=== PATIENT | female | born 1975 | race Caucasian/White ===

== ENCOUNTER 2017-12-03 15:26 | Emergency (ER) | payer MEDICARE, SELFPAY ==
[2017-12-03 15:27] VITALS: BP 147/102; PULSE 97; RESP 18; TEMP 36.3; O2SAT 98; BMI 35.9
--- NOTE | 2017-12-03 16:10 | ED.RN ---
PT UNABLE TO HAVE FAMILY OR FRIEND DRIVE THEM HOME. UNABLE TO GIVE PAIN MEDICATION SHOTS. PT AWARE. REFUSED
--- NOTE | 2017-12-03 16:29 | ED.DCSUM_ITS ---
- ER Visit Summary Date of Service: 12/03/17 Chief Complaint: Back pain History of Present Illness: The patient is a 42 F with low back pain bilaterally. Symptoms started 3 days ago. The patient was pumping gas in her leg caught on the concrete and she twisted her back. She has a long-term history of back pain and sciatica. History of nerve ablation. Worse with moving. She tried Tylenol, Toradol, heat, lidocaine, and other home remedies. Her pain has persisted. She has associated tingling down her legs and crampy pain. This is exactly similar to her prior sciatica. Denies incontinence, bowel or bladder changes Physical Examination: Vital signs unremarkable. Afebrile. Patient is tearful and appears uncomfortable. Back is diffusely tender. No spinal tenderness. Straight leg raise is negative. Strength and sensation are intact distally. Pulses intact. Skin appears normal. Test Results: None indicated Emergency Department Course and Treatment: Patient has acute on chronic back pain. No indication for imaging. No new red flags or concerning symptoms. She was treated with morphine subcutaneously, Norflex, and Kenalog. Patient does have a history of diabetes. She said that steroids have helped her in the past. She has been able to manage her blood sugars while on steroids. She will check her sugars closely and address accordingly. Patient was advised that we will not prescribe narcotics. She can continue her anti-inflammatories at home. We will prescribe muscle relaxers. Follow-up with primary care. Treatment Plan: As above Disposition: Discharged Impression: 1. Acute on chronic low back pain This note was generated with [employer] dictation software. It may contain incorrect words, spelling, and punctuation that were not noted in review of the chart prior to signing ED Disposition - Plan for ED Patient: Chief Complaint: Back Referrals: Ashley Valencia MD [Primary Care Provider] -
--- NOTE | 2017-12-03 16:29 | ED.DEP ---
ED Disposition - Plan for ED Patient: Chief Complaint: Back Instructions: ED Low Back Pain Injury Prescriptions: Cyclobenzaprine [Flexeril] 10 mg PO TID #20 tab Referrals: Ashley Valencia MD [Primary Care Provider] -
[2017-12-03 16:33] VITALS: BP 129/69
== END 2017-12-03 16:34 | disposition home or self-care (01) ==
PROVIDERS: Emergency Provider Emergency Medicine; Family Provider Family Medicine; PCP Family Medicine
DX: M54.5 Low back pain (principal); G89.29 Other chronic pain; F31.9 Bipolar disorder, unspecified; Z72.0 Tobacco use; Z79.899 Other long term (current) drug therapy
CPT/HCPCS: 99282

== ENCOUNTER → 2018-01-15 14:56 | Outpatient (CLI) | payer MEDICARE, SELFPAY ==
[2018-01-15 18:30] LABS: Basophil# 0.06 X10^3/uL; Basophil% 0.5 % (0-1); Eosinophil# 0.43 X10^3/uL; Eosinophils% 3.6 % (0-5); Hematocrit 39.3 % (37-47); Hemoglobin 13.2 g/dl (12.0-15.0); Lymphocyte % 28.5 % (19-41); Mean Corp Hgb Conc 33.6 g/gl (32-36); Mean Corpuscular Hgb 32.2 pg (27.0-32.0); Mean Corpuscular Volume 95.9 fL (81-99); Mean Platelet Vol. 11.6 fl (6.2-12.0); Monocyte# 0.96 X10^3/uL; Monocyte% 8.1 % (0-10); Neutrophil # 7.04 X10^3/uL (2.7-7.7); Platelet Count 290 K/mm3 (150-450); RBC Distribution Width SD 44.4 fl (35.1-43.9); White Blood Count 11.9 K/mm3 (4.4-11.0)
[2018-01-15 18:32] LABS: POSITIVE COUNT NO; POSITIVE DIFFERENTIAL NO; POSITIVE MORPHOLOGY NO
[2018-01-15 18:43] LABS: AST(SGOT) 17 U/L (15-37); Alanine Aminotransfer ALT/SGPT 32 U/L (13-56); Albumin, Serum 3.7 g/dL (3.2-5.0); Alkaline Phosphatase 75 U/L (45-117); Anion Gap 9 (5-15); BUN 14 mg/dL (7-18); BUN/Creat Ratio 15.9 RATIO (10-20); CPK Total, Creatine Kinase 153 U/L (26-192); Calcium,Total 9.1 mg/dL (8.5-10.1); Chloride 105 mmol/L (98-107); Creatinine, Serum 0.88 mg/dL (0.55-1.02); EST Glomerular Filtration Rate 74 mL/min (>60); Est Glom Filt Rate - Afr Amer 89 mL/min (>60); Globulin 3.8 g/dL (2.2-4.2); Glucose 91 mg/dL (74-106); Protein, Total 7.5 g/dL (6.4-8.2); Sodium Level 140 mmol/L (136-145)
[2018-01-16 10:04] LABS: Vitamin B12 792 pg/mL (211-911)
[2018-01-19 14:07] LABS: Anti-Centromere B Ab <0.2 AI (0.0-0.9); Anti-Chromatin <0.2 AI (0.0-0.9); Anti-Jo <0.2 AI (0.0-0.9); Anti-Scleroderma-70 AB <0.2 AI (0.0-0.9); RNP Ab <0.2 AI (0.0-0.9); SJOGREN'S Anti-SS-A test < 0.2 AI (0.0-0.9); SJOGREN'S Anti-SS-B test < 0.2 AI (0.0-0.9); Smith Ab <0.2 AI (0.0-0.9)
[2018-01-19 14:52] LABS: Anti-dsDNA Ab 1 IU/mL (0-9)
== END ==
PROVIDERS: Family Provider Family Medicine; PCP Family Medicine; Visit Provider Family Medicine
DX: E11.9 Type 2 diabetes mellitus without complications (principal); M79.1 Myalgia
CPT/HCPCS: 36415; 80053; 82550; 82607; 85025; 86225; 86235

== ENCOUNTER → 2018-03-02 14:44 | Outpatient (CLI) | payer MEDICARE, SELFPAY ==
[2018-03-02 16:02] LABS: Absolute Lymphocyte Count 3.37 X10^3/ul (0.83-4.51); Basophil# 0.05 X10^3/uL; Basophil% 0.4 % (0-1); Eosinophil# 0.51 X10^3/uL; Eosinophils% 4.4 % (0-5); Hematocrit 38.8 % (37-47); Hemoglobin 13.4 g/dl (12.0-15.0); Lymphocyte # 3.37 X10^3/ul (4.0); Lymphocyte % 28.8 % (19-41); Mean Corp Hgb Conc 34.5 g/gl (32-36); Mean Corpuscular Hgb 32.5 pg (27.0-32.0); Mean Corpuscular Volume 94.2 fL (81-99); Mean Platelet Vol. 11.3 fl (6.2-12.0); Monocyte# 0.75 X10^3/uL; Monocyte% 6.4 % (0-10); Neutrophil # 6.97 X10^3/uL (2.7-7.7); Neutrophil % 59.7 % (47-70); Platelet Count 253 K/mm3 (150-450); RBC Distribution Width CV 12.4 % (11.6-14.6); RBC Distribution Width SD 41.9 fl (35.1-43.9); Red Blood Count 4.12 M/mm3 (4.2-5.4); White Blood Count 11.7 K/mm3 (4.4-11.0)
[2018-03-02 16:05] LABS: POSITIVE COUNT NO; POSITIVE DIFFERENTIAL NO; POSITIVE MORPHOLOGY NO
== END ==
PROVIDERS: Visit Provider Family Medicine
DX: D72.819 Decreased white blood cell count, unspecified (principal)
CPT/HCPCS: 36415; 85025

== ENCOUNTER → 2018-04-21 13:11 | Outpatient (CLI) | payer MEDICARE, SELFPAY | LOC: CT 13:13 | PROVIDERS: Family Provider Family Medicine; PCP Family Medicine; Visit Provider Family Medicine | DX: R91.1 Solitary pulmonary nodule (principal) | CPT/HCPCS: 71250 ==

== ENCOUNTER 2019-04-09 00:22 | Emergency (ER) | payer MEDICARE, SELFPAY ==
[2019-04-09 00:23] VITALS: BP 153/106; PULSE 90; RESP 15; TEMP 36.7; O2SAT 97; BMI 34.4
[2019-04-09 00:27] VITALS: BP 153/106; PULSE 92; RESP 14; O2SAT 99
--- NOTE | 2019-04-09 00:29 | RAD_ITS ---
HISTORY: Chest pain ADDITIONAL HISTORY: None provided. COMPARISON: CT 04/21/2018 TECHNIQUE: Frontal and lateral chest radiographs. Number of images including paperwork: 2 FINDINGS: LUNGS AND PLEURA: No consolidation, mass or pleural effusion. Peribronchial thickening. CARDIAC SILHOUETTE: Unremarkable. MEDIASTINUM AND ROSA M: Unremarkable. UPPER ABDOMEN: Unremarkable. SKELETON AND SOFT TISSUES: No acute findings. OTHER DEVICES AND HARDWARE: Right upper quadrant surgical clips. RAD/Chest PA and Lateral IMPRESSION: Peribronchial thickening as can be seen with bronchitis and airways disease. at 0124 Reported and signed by: Ana Laura Orozco MD Electronically Signed: Ana Laura Orozco MD at 1:24 EDT Tel , Service support ,
--- NOTE | 2019-04-09 00:29 | EKG12_ITS ---
Test Reason : CP Blood Pressure : / mmHG Vent. Rate : 093 BPM Atrial Rate : 093 BPM P-R Int : 164 ms QRS Dur : 080 ms QT Int : 352 ms P-R-T Axes : 057 062 072 degrees QTc Int : 437 ms Normal sinus rhythm Nonspecific ST abnormality Abnormal ECG Confirmed by BROOK THOMAS, KYLEE ([id number]), assignment editor CLEMENTE CALLEJAS ([id number]) on 04/12/2019 11:54:56 AM Referred By: PEÑA Confirmed By:KYLEE DOE MD
--- NOTE | 2019-04-09 00:29 | ED.DCSUM_ITS ---
History of Present Illness Chief Complaint: Chest Pain Informant: Patient Narrative: Stated she was resting Fishing 40 minutes 45 minutes ago and developed a substernal tightness. Associated with some nausea. No shortness of breath. Denies any other symptoms except for a mild headache. No home treatment. Current severity is moderate. Worse by nothing. Relieved by nothing. Last stress test was 10 years ago and normal. Denies any cardiac history of disease. She does have hypertension high cholesterol and smokes cigarettes. No family history of early MT. Denies any PE risk factors. - Past Medical History (1) Chest pain Status: Acute (2) Bipolar disorder Status: Chronic (3) Depression Status: Chronic (4) Hypertension Status: Chronic (5) Migraine headache Status: Chronic Past Medical History - Allergies and Home Meds Allergies/Adverse Reactions: Allergies No Known Allergies Allergy (Verified 04/09/19 00:27) Primary Care Physician: Ashley Valencia MD [Primary Care Provider] - Prior records reviewed: Yes Past Medical History: - - Reviewed Surgical History: cholecystectomy, herniorrhaphy, hysterectomy Smoking Status: Current every day smoker Alcohol: None Drugs: None Review of Systems General: Denies: Chills, Fever, Sweats Eyes: Denies: Visual changes - bilaterally, Diplopia ENT: Denies: Rhinorrhea, Sore throat Cardiovascular: Reports: Chest pain. Denies: Palpitations Respiratory: Denies: Dyspnea, Cough, Dyspnea on exertion Gastrointestinal: Reports: Nausea. Denies: Abdominal pain, Vomiting, Diarrhea, Melena, Hematochezia Genitourinary: Denies: Dysuria, Hematuria, Frequency Musculoskeletal: Denies: Back pain, Extremity Pain Skin: Denies: Rash, Wounds Neurological: Reports: Headache. Denies: Weakness, Numbness Physical Exam Vital Signs/Narrative: Vital Signs Temp Pulse Resp BP Pulse Ox 04/09/19 00:23 98.1 F 90 15 153/106 H 97 General: Well nourished, Well developed, No Acute Distress Head: Normocephalic, Atraumatic Eyes: Perrl, EOMI ENT: Moist mucous membranes, No rhinorrhea Neck: Supple, Nontender Cardiovascular: Regular rate, Regular rhythm, No murmurs Respiratory: No distress, CTA bilaterally, Chest nontender Abdomen: Soft, Nontender, Nondistended, Normal bowel sounds Back: Nontender, Normal Inspection Extremities: Nontender, No edema Skin: Normal color, No rash Neurological: Alert, Oriented x3, Cranial nerves II-XII grossly intact, Normal Strength, Normal Sensation Psychological: Normal affect, Normal Mood Diagnostic/Tx/Re-eval - Medical Decision Making She given aspirin and nitro. Lab work EKG and chest x-ray obtained EKG shows sinus rhythm at a rate of 93. No STEMI. No ischemic changes work shows a white count of 11.8. Glucose 252. Troponin negative. One nitroglycerin stopped her chest discomfort. Chest x-ray shows nothing acute. Patient given a Fioricet for her headache. I discussed admission with the patient for further cardiac enzymes and stress test tomorrow. She declined this. She understands the risk of going home. I also talked her about doing a delta troponin and EKG and she declined this as well. She understands she can return if her pain comes back. Her symptoms are resolved. She had chest pain at rest. This may be cardiac. Her heart score is 4. This puts her at moderate risk. I did state to her that I think she should stay. She understands and still wants to go home and follow- up ED Disposition - Plan for ED Patient: Diagnosis: Chest pain at rest, Headache Instructions: CHEST PAIN, Uncertain Cause Referrals: Ashley Valencia MD [Primary Care Provider] -
[2019-04-09 00:44] LABS: Absolute Lymphocyte Count 3.72 X10^3/uL (0.83-4.51); Absolute Neutrophil Count 6.6 X10^3/uL (2.0-7.7); Basophil% 0.8 % (0-1); Eosinophil# 0.74 X10^3/uL; Eosinophils% 6.3 % (0-5); Hematocrit 40.8 % (37-47); Hemoglobin 13.8 g/dL (12.0-15.0); Lymphocyte # 3.72 X10^3/ul (4.0); Lymphocyte % 31.4 % (19-41); Mean Corp Hgb Conc 33.8 g/dL (32-36); Mean Corpuscular Hgb 30.9 pg (27.0-32.0); Mean Corpuscular Volume 91.3 fL (81-99); Mean Platelet Vol. 11.1 fl (6.2-12.0); Monocyte# 0.63 X10^3/uL; Monocyte% 5.3 % (0-10); NRBC Flagged by Analyzer 0 % (0-5); Neutrophil # 6.59 X10^3/uL (2.7-7.7); Neutrophil % 55.8 % (47-70); Platelet Count 220 K/mm3 (150-450); RBC Distribution Width CV 11.7 % (11.6-14.6); Red Blood Count 4.47 M/mm3 (4.2-5.4); White Blood Count 11.8 K/mm3 (4.4-11.0)
[2019-04-09] MEDS: Aspirin 81 MG TAB.CHEW 324 MG PO (00:48)
[2019-04-09] MEDS: Ondansetron 4 MG/2 ML Vial IV (00:48)
[2019-04-09 00:50] VITALS: O2SAT 96
[2019-04-09] MEDS: Nitroglycerin SL (ED/IMG/CATH) 0.4 MG TABLET SUBLINGUAL (00:55)
[2019-04-09 01:01] LABS: BUN 6 mg/dL (7-18); Creatinine, Serum 0.93 mg/dL (0.55-1.02); Estimated Creatinine Clearance 79.83 ml/min; Glucose 252 mg/dL (74-106)
[2019-04-09 01:02] LABS: Anion Gap 10 (5-15); BUN/Creat Ratio 6.5 RATIO (10-20); Calcium,Total 9.1 mg/dL (8.5-10.1); Chloride 102 mmol/L (98-107); EST Glomerular Filtration Rate 70 mL/min (>60); Est Glom Filt Rate - Afr Amer 84 mL/min (>60); Potassium 3.6 mmol/L (3.5-5.1); Sodium Level 135 mmol/L (136-145)
[2019-04-09 01:11] VITALS: BP 114/87; PULSE 93; RESP 14; O2SAT 94
[2019-04-09] MEDS: Acetaminophen/Butalbital/Caffe 1 Tablet 2 TABLET PO (01:32)
[2019-04-09 01:41] VITALS: BP 112/75; PULSE 82; RESP 13; O2SAT 97
== END 2019-04-09 01:46 | disposition home or self-care (01) ==
PROVIDERS: Emergency Provider Emergency Medicine; Family Provider Family Medicine; PCP Family Medicine
DX: R07.9 Chest pain, unspecified (principal); R51 Headache; E78.00 Pure hypercholesterolemia, unspecified; I10 Essential (primary) hypertension; F17.210 Nicotine dependence, cigarettes, uncomplicated; F32.9 Major depressive disorder, single episode, unspecified; Z79.899 Other long term (current) drug therapy
CPT/HCPCS: 71046; 80048; 84484; 85025; 93005; 96374; 99285; A4216; J2405

== ENCOUNTER 2019-05-21 08:32 | Emergency (ER) | payer MEDICARE, MEDICAID, SELFPAY ==
[2019-05-21 08:33] VITALS: BP 172/97; PULSE 82; RESP 18; TEMP 36.7; O2SAT 98; BMI 33.8
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
[2019-05-21] MEDS: Ondansetron 4 MG/2 ML Vial IV (08:52)
[2019-05-21] MEDS: Morphine 4 MG/ML Syringe IV (08:53)
[2019-05-21 09:18] LABS: Absolute Lymphocyte Count 1.55 X10^3/uL (0.83-4.51); Absolute Neutrophil Count 6.2 X10^3/uL (2.0-7.7); Basophil# 0.05 X10^3/uL; Basophil% 0.6 % (0-1); Eosinophils% 3.5 % (0-5); Hematocrit 40.7 % (37-47); Hemoglobin 13.7 g/dL (12.0-15.0); Lymphocyte # 1.55 X10^3/ul (4.0); Lymphocyte % 17.9 % (19-41); Mean Corp Hgb Conc 33.7 g/dL (32-36); Mean Corpuscular Hgb 30.5 pg (27.0-32.0); Mean Corpuscular Volume 90.6 fL (81-99); Mean Platelet Vol. 11.1 fl (6.2-12.0); Monocyte# 0.53 X10^3/uL; Monocyte% 6.1 % (0-10); NRBC Flagged by Analyzer 0 % (0-5); Neutrophil # 6.18 X10^3/uL (2.7-7.7); Neutrophil % 71.2 % (47-70); Platelet Count 227 K/mm3 (150-450); RBC Distribution Width CV 12.5 % (11.6-14.6); RBC Distribution Width SD 40.9 fl (35.1-43.9); Red Blood Count 4.49 M/mm3 (4.2-5.4); White Blood Count 8.7 K/mm3 (4.4-11.0)
[2019-05-21 09:35] LABS: Anion Gap 6 (5-15); BUN 7 mg/dL (7-18); BUN/Creat Ratio 9.2 RATIO (10-20); Calcium,Total 8.8 mg/dL (8.5-10.1); Chloride 104 mmol/L (98-107); Creatinine, Serum 0.76 mg/dL (0.55-1.02); EST Glomerular Filtration Rate 87 mL/min (>60); Est Glom Filt Rate - Afr Amer 105 mL/min (>60); Estimated Creatinine Clearance 97.69 ml/min; Glucose 287 mg/dL (74-106); Potassium 3.6 mmol/L (3.5-5.1); Sodium Level 136 mmol/L (136-145)
[2019-05-21 09:47] VITALS: BP 165/74; PULSE 78; RESP 16; O2SAT 99
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
[2019-05-21 10:34] VITALS: PULSE 71; RESP 16; O2SAT 98
== END 2019-05-21 10:35 | disposition home or self-care (01) ==
PROVIDERS: Emergency Provider Emergency Medicine; Family Provider Family Medicine; PCP Family Medicine
DX: S00.03XA Contusion of scalp, initial encounter (principal); R07.89 Other chest pain; Z23 Encounter for immunization; E11.9 Type 2 diabetes mellitus without complications; I10 Essential (primary) hypertension; Z79.4 Long term (current) use of insulin; Z79.899 Other long term (current) drug therapy; V58.5XXA Driver of pick-up truck or van injured in noncollision transport accident in traffic accident, initial encounter; Y93.I9 Activity, other involving external motion; Y92.410 Unspecified street and highway as the place of occurrence of the external cause; Y99.8 Other external cause status
CPT/HCPCS: 70450; 71260; 72125; 80048; 84484; 85025; 93005; 96361; 96374; 96375; 99285; J7030; Q9967; A4216; J2405

== ENCOUNTER → 2019-11-08 | Outpatient (CLI) | payer MEDICARE, MEDICAID, SELFPAY ==
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
== END | disposition home or self-care (01) ==
PROVIDERS: PCP Family Medicine; Referring Provider Family Medicine; Visit Provider Family Medicine
DX: M54.31 Sciatica, right side (principal)
CPT/HCPCS: 72158; A9575

== ENCOUNTER 2025-08-18 21:55 | Observation (INO) | payer OTHER, MEDICARE, SELFPAY ==
[2025-08-18] VITALS (10 sets, daily range): BP systolic 119–166; BP diastolic 75–100; PULSE 82–95; RESP 16–30; TEMP 36.6; O2SAT 94–100; BMI 33.1
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
--- NOTE | 2025-08-18 22:20 | ED.VIS.CHEST ---
HPI History of Present Illness Chief Complaint: Chest Pain Detail of Chief Complaint: Chest pain Informant: patient Narrative Narrative: Patient presents to the emergency department with complaint of chest pain that started about an hour ago. Patient states that she was pumping gas when she had sudden onset of retrosternal chest discomfort that she described as a squeezing and a tightness. Pain radiated into her right arm and her right arm is aching. Pain goes through to her back and into her the right side of her neck. She has never had discomfort like this before. She says many years ago she thought she was having a heart attack and was admitted but was diagnosed with anxiety. She has no known heart history. Her father had 7 cardiac stents and had an LA in his early 50s. She denies recent travel or surgery. She is diabetic and she is a smoker. [facility] Medical History (Updated 08/18/25 @ 23:[address] Te Rogers DO) Physical exam, pre-employment Home Medications ?Medication ?Instructions ?Recorded ?Last Taken ?Type aripiprazole 10 mg tablet 15 mg PO DAILY 04/09/19 Unknown History insulin aspart U-100 100 unit/mL 0 unit SQ TID 04/09/19 Unknown History (3 mL) subcutaneous pen insulin detemir U-100 100 unit/mL 25 units SQ QHS 04/09/19 Unknown History (3 mL) subcutaneous pen lorazepam 2 mg tablet 2 mg PO PRN PRN Anxiety 04/09/19 Unknown History metformin 1,000 mg tablet 1,000 mg PO DAILY 04/09/19 Unknown History sertraline 100 mg tablet 100 mg PO DAILY 04/09/19 Unknown History cyclobenzaprine 10 mg tablet 10 mg PO TID PRN Muscle Spasm #20 05/21/19 Unknown Rx tabs glipizide 10 mg tablet 10 mg PO DAILY 08/18/25 Unknown History Allergy/AdvReac Type Severity Reaction Status Date / Time No Known Allergies Allergy Verified 08/18/25 21:56 Social History Smoking Status: Current every day smoker tobacco type: cigarettes ROS ROS ED Review of Systems ROS Unobtainable: other Constitutional Constitutional ED: Reports lethargy; Denies chills, fever(s), sweats or weight loss Eyes Eyes: Denies blurry vision, change in vision or diplopia ENT ENT ED: Denies rhinorrhea or sore throat Cardiovascular Cardiovascular: Reports chest pain; Denies orthopnea or racing heartbeat Respiratory/Chest Respiratory/Chest: Denies cough, dyspnea, dyspnea on exertion, orthopnea or sputum Gastrointestinal Gastrointestinal: Denies abdominal pain, diarrhea, nausea or vomiting Genitourinary Genitourinary ED: Denies dysuria, hematuria or urinary frequency Musculoskeletal Musculoskeletal: Denies arthralgias, back pain, myalgias or neck pain Integumentary Denies abscess, Abrasions or rash Neurologic Neurologic: Denies headache(s) or weakness Psychiatric Psychiatric: Denies anxiety, depression or suicidal thoughts Endocrine Endocrinology: Denies polydipsia, polyphagia or polyuria Hematologic/Lymphatic Hematologic/Lymphatic: Denies easy bleeding, easy bruising or lymphadenopathy Allergic/Immunologic Allergic/Immunologic ED: Denies mouth swelling, tongue swelling or urticaria EXAM Physical Exam Const Vital Signs: 08/18/25 21:55 08/18/25 22:16 08/18/25 22:28 Temperature 97.8 F Temperature Source Temporal Pulse Rate 95 Respiratory Rate 16 Respiratory Effort Normal Short of Breath Blood Pressure 166/100 H Blood Pressure Mean 122 Pulse Ox 100 94 Oxygen Delivery Method Room Air Room Air 08/18/25 22:30 08/18/25 22:32 08/18/25 22:32 Temperature Temperature Source Pulse Rate 86 85 87 Respiratory Rate 21 H 30 H Respiratory Effort Blood Pressure 136/89 H 136/89 H Blood Pressure Mean 102 Pulse Ox 99 99 Oxygen Delivery Method 08/18/25 22:45 08/18/25 23:00 08/18/25 23:17 Temperature Temperature Source Pulse Rate 84 84 82 Respiratory Rate 22 H 21 H Respiratory Effort Blood Pressure 141/79 H 147/84 H 147/84 H Blood Pressure Mean 96 101 Pulse Ox 96 97 Oxygen Delivery Method 08/18/25 23:18 08/18/25 23:30 Temperature Temperature Source Pulse Rate 83 Respiratory Rate 16 Respiratory Effort Blood Pressure 119/75 Blood Pressure Mean 88 Pulse Ox 97 97 Oxygen Delivery Method Positive well nourished and well developed General Appearance ED: well developed and NAD HEENT Reports TM's clear and moist mucous membranes normocephalic and atraumatic; Negative for trauma or tenderness Tympanic Membrane ED: Yes TM's clear Eyes PERRL and EOMs intact bilaterally General Eye ED: Negative for pale conjunctiva or scleral icterus Neck no lymphadenopathy, supple and no JVD General: Negative for tenderness Chest Wall inspection of chest normal and palpation of chest normal Chest: Negative for tenderness Resp normal respiratory effort and clear to auscultation bilaterally Effort and Inspection: Negative for respiratory distress or pain with movement Auscultation: Negative for rhonchi, wheezes or diminished lung sounds Cardio regular rate, regular rhythm, S1 normal heart sound, S2 normal heart sound and no murmurs Peripheral Pulses: pulses 2+ throughout GI normal to inspection, nondistended, normoactive bowel sounds, soft to palpation, non-tender, non-distended and no masses Back/Spine no CVA tenderness and no thoracic nor lumbar tenderness Extremity normal to inspection General Extremety ED: Negative for edema General Extremity: Negative for edema Neuro oriented x3, CN's II-XII intact bilaterally, no sensory deficits noted and gait normal Sensorium / Orientation: awake, alert, oriented to person, oriented to place and oriented to time Motor Exam: strength 5/5 throughout and strength abnormal Psych mental status grossly normal Skin no rashes or lesions noted and no wounds Heart Score History: Moderately Suspicious ECG: Normal Age: >45 - <65 years Risk Factors: 1 or 2 Risk Factors Troponin: </= Normal Limit Score: 3 MDM MDM MDM Narrative Medical decision making narrative: Patient presents with retrosternal chest pain with discomfort into the right arm and neck and jaw as well as radiating through to her back. Symptoms started suddenly an hour prior to coming in. She has not had symptoms like this before. She does have history of diabetes and history of anxiety and positive family history of heart disease. EKG obtained arrival showed a sinus rhythm with rate of 88 bpm with no acute ST segment changes. CBC with differential shows a white count 11.3 with hemoglobin 13 and platelet count of 226. Chemistries unremarkable. Troponin was normal at 6. D-dimer was 0.61. 1 view chest x-ray unremarkable. CTA of the chest was ordered given the elevated D-dimer. Patient was given aspirin and nitroglycerin and she seemed to have good pain relief with the nitroglycerin. She had an inch of Nitropaste placed to the anterior chest wall. Case discussed with hospitalist will evaluate patient for admission Lab Data Attestation: I reviewed the patient's lab results. Labs: Laboratory Results - last 24 hr 08/18/25 22:14 WBC 11.3 H RBC 4.38 Hgb 13.4 Hct 38.6 MCV 88.1 MCH 30.6 MCHC 34.7 RDW Std Deviation 38.3 RDW Coeff of Martin 11.8 Plt Count 226 MPV 10.9 Immature Gran % (Auto) 0.300 Neut % (Auto) 53.0 Lymph % (Auto) 35.2 [place] % (Auto) 6.2 Eos % (Auto) 4.6 Baso % (Auto) 0.7 Absolute Neuts (auto) 6.0 Absolute Lymphs (auto) 3.98 Nucleated RBC % 0 D-Dimer Quant (PE/DVT) 0.61 H* Sodium 132 L Potassium 4.1 Chloride 96 L Carbon Dioxide 21.3 Anion Gap 15 BUN 10 Creatinine 0.80 Estim Creat Clear Calc 105.68 Est GFR (MDRD) Non-Af 90 BUN/Creatinine Ratio 12.4 Glucose 318 H Calcium 9.5 Troponin T High Sens 6 Radiography Diagnostic Testing: Clinical Impression(s) from Imaging Studies Chest X-Ray 08/18/25 22:35 IMPRESSION: No acute cardiopulmonary disease. Reading Location: [facility] 1 view chest x-ray obtained interpreted by myself as no evidence of infiltrate or pneumothorax or acute disease process. Radiology in agreement EKG Initial EKG: Attestation: I personally reviewed and interpreted this EKG as follows: Comments: Sinus rhythm with ventricular rate of 88 bpm with no acute ST segment Discharge Plan Dx/Rx/DC Orders Clinical Impression: Chest pain Disposition Disposition: Acute Care Hospital [facility]
[2025-08-18] MEDS: Nitroglycerin SL (ED/IMG/CATH) 0.4 MG TABLET SL (22:32)
--- OUTSIDE RECORDS SUMMARY | 2025-08-18 22:33 | XMS RPT_ITS | CCD ---
Author Organization [facility] Care Team Providers Care Cutter Hand Name Role Phone GUERO SHABAZZ Unavailable Unavailable [facility] Unavailable Unavailable TAMERA ARCE Unavailable Unavailabl [facility], GENERIC Unavailable Unavailable SUMIT LERNER Unavailable Unavailable PRUDENCIO THOMAS, DR CLIF Sahu Primary Care Physician JOHN THOMAS, DR ABI Huber Attending Unavailsharon FLANNERY MD, DR CLIF Sahu Primary Care UnavailCAR Ramirez Attending Unavailable PRDUENCIO THOMAS, DR CLIF Sahu Primary Care UnavailTRANG Trejo (PA-C) Referring Unava ilable LIBBY SUAZO DO Primary Care Physician JAN OLEARY Attending Unavailable MISC, DOCTOR Primary Care Unavailable UNGERERCHEYENNE BUSINESS TECHNOLOGY PROFESSOR Consulting Unavailable CHEYENNE BALES BUSINESS TECHNOLOGY PROFESSOR Referring Unavailable WAYLON MADDOX MD Admitting Unavailable WAYLON MADDOX MD Primary Care Unavailable WAYLON MADDOX MD Attending Unavailable PROVIDER, UNKNOWN Consulting Unavailable JERICHO HERNANDEZ Attending Unavailable CHEYENNE BALES BUSINESS TECHNOLOGY PROFESSOR Consulting Unavailable JERICHO HERNANDEZ Admitting Unavailable JERICHO HERNANDEZ Primary Care Unavailable PROVIDER, UNKNOWN Consulting Unavailable UNGERER, CHEYENNE BUSINESS TECHNOLOGY PROFESSOR Consulting Unavailable UNGERER CHEYENNE BUSINESS TECHNOLOGY PROFESSOR Attending Unavailable UNGERER CHEYENNE BUSINESS TECHNOLOGY PROFESSOR Admitting Unavailable UNGERER CHEYENNE BUSINESS TECHNOLOGY PROFESSOR Primary Care Unavailable PROVIDER, UNKNOWN Consulting Unavailable KATHY GAMING Attending Unavailable LIBBY SUAZO DO Primary Care Unavailable DR CLIF FLANNERY MD Primary Care UnavailFAUSTINO Wise DO Attending Unavailable DR CLIF FLANNERY MD Primary Care UnavailTHERON Melton MD Attending Unavail able LIBBY SUAZO DO Primary Care Unavailable JERICHO SULTANA MD Attending Unavailable HARITHA SYLVESTER DO Attending Unavailable LIBBY SUAZO DO Primary Care Unavailable LIBBY SUAZO DO Primary Care Unavailable DR ABI LOPEZ MD Attending UnavailLIBBY Mccall DO Primary Care Unavailable LIBBY SUAZO DO Attending Unavailable LIBBY SUAZO DO Attending Unavailable LIBBY SUAZO DO Primary Care Unavailable Allergies Allergy Classification Reported Allergen(s) Allergy Type Date of Onset Reaction(s) Facility (2 sources) Grass pollen; Translations: [GRASS POLLEN] Propensity to adverse reactions to drug (disorder) [address] [facility] Repository (2 sources) Pollen; Translations: [POLLEN] Propensity to adverse reactions (disorder) [address] [facility] Repository (1 source) misc non-codified allergy 1 Allergy to substance Eruption of skin (disorder) [facility] Comment on above: vinyl gloves NEGATED: Highlighted row has been ruled out! (1 source) Drug allergy [facility] Medications Current Medications Medication Drug Class(es) Dates Sig (Normalized) Sig (Original) acetaminophen 325 mg / oxyCODONE hydrochloride 5 mg oral tablet (1 source) Opioid Agonist Start: 05-03-2025 End: 05-06-2025 take 1 tablet by mouth every six hours as needed for pain Percocet 5 mg-325 mg oral tablet Dose = 1 tab(s), Oral, q6h, PRN for pain, X 3 day(s), # 10 tab(s), 0 Refill(s), Abdominal wall strain, 102 Start Date: 05/03/25 Stop Date: 05/06/25 Status: Ordered Medication Dispense Status: Completed Quantity: 10.0 Unit: tab(s) Total Allowed Fills: 1 Fills Dispensed: 0 Indications: Strain of muscle, fascia and tendon of abdomen, initial encounter; amoxicillin 875 mg / clavulanate 125 mg oral tablet (2 sources) Penicillin-class Antibacterial Start: 07-16-2025 End: 07-26-2025 take 1 tablet by mouth every twelve hours amoxicillin-clav ulanate 875 mg-125 mg oral tablet 1 tab(s), Oral, q12h, X 10 day(s), # 20 tab(s), 0 Refill(s), 07/26/25 3:55:00 PM EST, 104.5 Start Date: 07/16/25 Stop Date: 07/26/25 Status: Ordered Medication Dispense Status: Completed Quantity: 20.0 Unit: tab(s) Total Allowed Fills: 1 Fills Dispensed: 0 Start: 01-16-2025 End: 01-26-2025 take 1 tablet by mouth every twelve hours amoxicillin-clavulanate 875 mg-125 mg or al tablet 1 tab(s), Oral, q12h, X 10 day(s), # 20 tab(s), 0 Refill(s), 01/26/25 1:21:00 AM EDT, 79.7 Start Date: 01/16/25 Stop Date: 01/26/25 Status: Ordered Quantity: 20.0 Unit: tab(s) Repeat number: 1 ARIPiprazole 15 mg oral tablet (9 sources) Atypical Antipsychotic Start: 02-11-2025 ARIPipr azole 15 mg oral tablet Dose : 15 mg = 1 tab(s), Oral, qHS, TAKE ONE TABLET BY MOUTH EVERY NIGHT AT BEDTIME, # 100 tab(s), 0 Refill(s), Pharmacy: [facility] 174.5, cm, 02/11/25 13:42:00 EDT, Height, kg, 02/11/25 13:42:00 EDT, Dosing Weight Start Date: 02/11/25 Status: Ordered Medication Dispense Status: Completed Quantity: 100.0 Unit: tab(s) Total Allowed Fills: 1 Fills Dispensed: 0 Start: 02-16-2014 Abilify Oral, qDay, 0 Refill(s) Start Date: 02/16/14 Status: Ordered Repeat number: 1 Start: 02-16-2014 Abilify Oral, qDay, 0 Refill(s) Start Date: 02/16/14 Status: Ordered 24 hr diclofenac sodium 100 mg extended release oral tablet (3 sources) Nonsteroidal Anti-inflammatory Drug Start: 04-12-2025 take 2 tablets by mouth in the morning, then take 1 tablet by mouth in the evening diclofenac sodium 100 mg oral tablet, extended release See Instructions, 2 tab(s) Oral in AM, 1 tab in PM, # 90 tab(s), 2 Refill(s), Pharmacy: [facility], Foot pain, right Navicular fracture, foot (right), 173, cm, 04/12/25 15:01:00 EDT, Height, kg, 04/12/25 15:01:00 EDT, Dosing Weight Start Date: 04/12/25 Status: Ordered Medication Dispense Status: Completed Quantity: 90.0 Unit: tab(s) Total Allowed Fills: 3 Fills Dispensed: 0 Indications: Pain in right foot; Displaced fracture of navicular [scaphoid] of unspecified foot, initial encounter for closed fracture; docusate sodium 100 mg oral capsule (1 source) Start: 05-01-2025 docusate sodium 100 mg oral capsule Dose : 100 mg = 1 cap(s), Oral, qDay, PRN for constipation, # 30 cap(s), 1 Refill(s), Pharmacy: [facility], 173, cm, 04/29/25 14:50:00 EDT, Height, kg, 04/29/25 14:50:00 EDT, Dosing Weight Start Date: 05/01/25 Status: Ordered Medication Dispense Status: Completed Quantity: 30.0 Unit: cap(s) Total Allowed Fills: 2 Fills Dispensed: 0 empagliflozin 25 mg oral tablet (4 sources) Sodium-Glucose Cotransporter 2 Inhibitor Start: 03-08-2025 Jardiance 25 mg oral tablet Dose : 25 mg = 1 tab(s), Oral, qAM, # 30 tab(s), 1 Refill(s), Pharmacy: [facility] 174.5, cm, 03/08/25 15:02:00 EDT, Height, kg, 03/08/25 15:02:00 EDT, Dosing Weight Start Date: 03/08/25 Status: Ordered Medication Dispense Status: Completed Quantity: 30.0 Unit: tab(s) Total Allowed Fills: 2 Fills Dispensed: 0 Start: 02-22-2025 Jardiance 10 m g oral tablet Dose : 10 mg = 1 tab(s), Oral, qAM, # 30 tab(s), 0 Refill(s), Pharmacy: [facility] 174.5, cm, 02/11/25 13:42:00 EDT, Height, kg, 02/11/25 13:42:00 EDT, Dosing Weight Start Date: 02/22/25 Status: Ordered Quantity: 30.0 Unit: tab(s) Repeat number: 1 fluticasone propionate 0.05 mg/actuat metered dose nasal spray (9 sources) Corticosteroid Start: 05-01-2025 take 50 ug nasal route twice daily Flonase 50 mcg/inh nasal spray 50 mcg Dose = 1 spray(s), Nostril, each, BID, # 16 gram(s), 2 Refill(s), Pharmacy: [facility], Nasal congestion, 173, cm, 04/29/25 14:50:00 EDT, Height, kg, 04/29/25 14:50:00 EDT, Dosing Weight Start Date: 05/01/25 Status: Ordered Medication Dispense Status: Completed Quantity: 16.0 Unit: g Total Allowed Fills: 3 Fills Dispensed: 0 Indications: Nasal congestion; Start: 02-11-2025 take 50 ug nasal rou te twice daily Flonase 50 mcg/inh nasal spray 50 mcg Dose = 1 spray(s), Nostril, each, BID, # 16 gram(s), 0 Refill(s), Pharmacy: [facility] Nasal congestion, 174.5, cm, 02/11/25 13:42:00 EDT, Height, kg, 02/11/25 13:42:00 EDT, Dosing Weight Start Date: 02/11/25 Status: Ordered Medication Dispense Status: Completed Quantity: 16.0 Unit: g Total Allowed Fills: 1 Fills Dispensed: 0 Indications: Nasal congestion; Start: 08-21-2014 End: 09-04-2014 Flonase 50 mcg/inh nasal spr ay Dose = 1 spray(s), Nasal, BID, # 1 EA, 0 Refill(s) Start Date: 08/21/14 Stop Date: 09/04/14 Status: Ordered Quantity: 1.0 Unit: EA Repeat number: 1 FreeStyle Saumya 3+ Sensors (1 source) Start: 05-23-2025 FreeStyle Libr e 3+ Sensors See Instructions, Place once sensor to the back of the upper arm every 15 days. Use reader or phone eder for daily blood sugar checks. 1 month supply, # 2 EA, 3 Refill(s), Pharmacy: [facility]/pharmacy #[id number], Hypoglycemia Diabetes mellitus with insulin therapy, 173, cm, 05/23/25 14:32:00 EDT, Height, 104.5, kg, 05/23/25 14:32:00 EDT, Dosing Weight Start Date: 05/23/25 Status: Ordered Medication Dispense Status: Completed Quantity: 2.0 Unit: EA Total Allowed Fills: 4 Fills Dispensed: 0 Indications: Hypoglycemia, unspecified; Type 2 diabetes mellitus without complications; glimepiride (4 sources) Sulfonylurea Start: 08-21-2014 glimepiride Or al, qDay, 0 Refill(s) Start Date: 08/21/14 Status: Ordered Repeat number: 1 Start: 08-21-2014 glimepiride Or al, qDay, 0 Refill(s) Start Date: 08/21/14 Status: Ordered insulin glargine 100 unt/ml injectable solution (1 source) Insulin Analog Start: 05-23-2025 inject 1 dose by subcutaneous injection once daily Lantus 100 units/mL10 ml vial solution Dose : 10 unit(s) =, Subcutaneous, qDay, # 10 mL, 1 Refill(s), [id number], 173, cm, 05/23/25 14:32:00 EDT, Height, kg, 05/23/25 14:32:00 EDT, Dosing Weight Start Date: 05/23/25 Status: Ordered Medication Dispense Status: Completed Quantity: 10.0 Unit: mL Total Allowed Fills: 2 Fills Dispensed: 0 lansoprazole 30 mg delayed release oral capsule (1 source) Proton Pump Inhibitor Start: 07-16-2025 Prevacid 30 mg oral delayed release capsule Dose : 30 mg = 1 cap(s), Oral, qDay, # 30 cap(s), 0 Refill(s) Start Date: 07/16/25 Status: Ordered Medication Dispense Status: Completed Quantity: 30.0 Unit: cap(s) Total Allowed Fills: 1 Fills Dispensed: 0 levocetirizine dihydrochloride 5 mg oral tablet (5 sources) Histamine-1 Receptor Antagonist Start: 05-12-2025 levocetirizine 5 mg oral tablet Dose : 5 mg = 1 tab(s), Oral, qHS, # 30 tab(s), 2 Refill(s), Pharmacy: [facility], Nasal congestion, 173, cm, 04/29/25 14:50:00 EDT, Height, kg, 04/29/25 14:50:00 EDT, Dosing Weight Start Date: 05/12/25 Status: Ordered Medication Dispense Status: Completed Quantity: 30.0 Unit: tab(s) Total Allowed Fills: 3 Fills Dispensed: 0 Indications: Nasal congestion; Start: 04-12-2025 levocetirizine 5 mg oral tablet Dose : 5 mg = 1 tab(s), Oral, qHS, # 30 tab(s), 0 Refill(s), Pharmacy: [facility] #30, Nasal congestion, 173, cm, 04/12/25 15:01:00 EDT, Height, kg, 04/12/25 15:01:00 EDT, Dosing Weight Start Date: 04/12/25 Status: Ordered Medication Dispense Status: Completed Quantity: 30.0 Unit: tab(s) Total Allowed Fills: 1 Fills Dispensed: 0 Indications: Nasal congestion; Start: 02-11-2025 levocetirizine 5 mg oral tablet Dose : 5 mg = 1 tab(s), Oral, qHS, # 30 tab(s), 0 Refill(s), Pharmacy: [facility] Nasal congestion, 174.5, cm, 02/11/25 13:42:00 EDT, Height, kg, 02/11/25 13:42:00 EDT, Dosing Weight Start Date: 02/11/25 Status: Ordered Quantity: 30.0 Unit: tab(s) Repeat number: 1 Indications: Nasal congestion; naproxen sodium 550 mg oral tablet (3 sources) Nonsteroidal Anti-inflammatory Drug Start: 08-28-2023 take 1 tablet by mouth once as needed for pain, then take 1 tablet by mouth twice daily as needed for pain Anaprox-DS 550 mg oral tablet Dose : 550 mg = 1 tab(s), Oral, BID, PRN as needed for pain, # 20 tab(s), 0 Refill(s) Start Date: 08/28/23 Status: Ordered Quantity: 20.0 Unit: tab(s) Repeat number: 1 nortriptyline 25 mg oral capsule (4 sources) Tricyclic Antidepressant Start: 05-23-2025 nortriptyline 25 mg oral capsule Dose : 75 mg = 3 cap(s), Oral, qDay, # 90 cap(s), 1 Refill(s), Pharmacy: [facility]/pharmacy #[id number], 173, cm, 05/23/25 14:32:00 EDT, Height, kg, 05/23/25 14:32:00 EDT, Dosing Weight Start Date: 05/23/25 Status: Ordered Medication Dispense Status: Completed Quantity: 90.0 Unit: cap(s) Total Allowed Fills: 2 Fills Dispensed: 0 Start: 04-12-2025 nortriptyline 25 mg oral capsule Dose : 50 mg = 2 cap(s), Oral, qDay, # 60 cap(s), 1 Refill(s), Pharmacy: [facility] #[id number], 173, cm, 04/12/25 15:01:00 EDT, Height, kg, 04/12/25 15:01:00 EDT, Dosing Weight Start Date: 04/12/25 Status: Ordered Medication Dispense Status: Completed Quantity: 60.0 Unit: cap(s) Total Allowed Fills: 2 Fills Dispensed: 0 Start: 03-08-2025 nortriptyline 10 mg oral capsule Dose : 10 mg = 1 cap(s), Oral, qHS, after 7-14 days may increase to 20mg dosing, or stay at 10mg dosing, # 30 cap(s), 0 Refill(s), Pharmacy: [facility] Chronic pain Bipolar 2 disorder, 174.5, cm, 03/08/25 15:02:00 EDT, Height, kg, 03/08/25 15:02:00 EDT, Dosing Weight Start Date: 03/08/25 Status: Ordered Quantity: 30.0 Unit: cap(s) Repeat number: 1 Indications: Other chronic pain; Bipolar II disorder; ondansetron 4 mg oral tablet (1 source) Serotonin-3 Receptor Antagonist Start: 07-16-2025 End: 07-23-2025 Zofran 4 mg oral tablet Dose : 4 mg = 1 tab(s), Oral, q8h, PRN Nausea/Vomiting, # 15 tab(s), 0 Refill(s), 07/23/25 3:55:00 PM EST Start Date: 07/16/25 Stop Date: 07/23/25 Status: Ordered Medication Dispense Status: Completed Quantity: 15.0 Unit: tab(s) Total Allowed Fills: 1 Fills Dispensed: 0 pantoprazole 40 mg delayed release oral tablet (3 sources) Proton Pump Inhibitor Start: 04-19-2025 pantoprazole 40 mg oral enteric coated tablet Dose : 40 mg = 1 tab(s), Oral, qDay, # 90 tab(s), 1 Refill(s), Pharmacy: [facility], 173, cm, 04/12/25 15:01:00 EDT, Height, kg, 04/12/25 15:01:00 EDT, Dosing Weight Start Date: 04/19/25 Status: Ordered Medication Dispense Status: Completed Quantity: 90.0 Unit: tab(s) Total Allowed Fills: 2 Fills Dispensed: 0 rimegepant 75 mg disintegrating oral tablet (1 source) Start: 05-23-2025 take 1 tablet by mouth every twenty-four hours Nurtec ODT 75 mg oral tablet, disintegrating Dose : 75 mg = 1 tab(s), Oral, Every other day, not to exceed 75 mg in 24 hours, # 16 tab(s), 0 Refill(s), Pharmacy: [facility]/pharmacy #[id number], Migraines, 173, cm, 05/23/25 14:32:00 EDT, Height, kg, 05/23/25 14:32:00 EDT, Dosing Weight Start Date: 05/23/25 Status: Ordered Medication Dispense Status: Completed Quantity: 16.0 Unit: tab(s) Total Allowed Fills: 1 Fills Dispensed: 0 Indications: Migraine, unspecified, not intractable, without status migrainosus; sertraline 100 mg oral tablet (9 sources) Serotonin Reuptake Inhibitor Start: 02-11-2025 End: 08-30-2025 sertraline 100 mg oral tablet Dose : 100 mg = 1 tab(s), Oral, qDay, # 100 tab(s), 1 Refill(s), Pharmacy: [facility] 174.5, cm, 02/11/25 13:42:00 EDT, Height, kg, 02/11/25 13:42:00 EDT, Dosing Weight Start Date: 02/11/25 Stop Date: 08/30/25 Status: Ordered Medication Dispense Status: Completed Quantity: 100.0 Unit: tab(s) Total Allowed Fills: 2 Fills Dispensed: 0 Start: 02-16-2014 Zoloft Oral, q Day, 0 Refill(s) Start Date: 02/16/14 Status: Ordered Repeat number: 1 Start: 02-16-2014 Zoloft Oral, q Day, 0 Refill(s) Start Date: 02/16/14 Status: Ordered Completed/Discontinued Medications Medication Drug Class(es) Dates Sig (Normalized) Sig (Original) acetaminophen 325 mg / HYDROcodone bitartrate 5 mg oral tablet (4 sources) Opioid Agonist Start: 03-21-2023 End: 03-24-2023 take 1 tablet by mouth every six hours [place] 325- 5 mg oral tablet Dose = 1 tab(s), Oral, q6h, # 12 tab(s), 0 Refill(s), Contusion of right elbow, 100 Start Date: 03/21/23 Stop Date: 03/24/23 Status: Ordered Quantity: 12.0 Unit: tab(s) Repeat number: 1 Indications: Contusion of right elbow, initial encounter; gabapentin 800 mg oral tablet (5 sources) Anti-epileptic Agent Start: 02-11-2025 End: 05-12-2025 gabapentin 800 mg oral tablet Dose : 800 mg = 1 tab(s), Oral, TID, # 90 tab(s), 2 Refill(s), Pharmacy: [facility] Chronic pain Osteoarthritis, 174.5, cm, 02/11/25 13:42:00 EDT, Height, 100, kg, 02/11/25 13:42:00 EDT, Dosing Weight Start Date: 02/11/25 Stop Date: 05/12/25 Status: Ordered Medication Dispense Status: Completed Quantity: 90.0 Unit: tab(s) Total Allowed Fills: 3 Fills Dispensed: 0 Indications: Other chronic pain; Unspecified osteoarthritis, unspecified site; glipiZIDE er 10 mg 24 hr extended release oral tablet (5 sources) Sulfonylurea Start: 02-11-2025 End: 05-22-2025 glipiZIDE 10 mg oral tablet, extended release Dose : 10 mg = 1 tab(s), Oral, qDay, TAKE ONE TABLET BY MOUTH DAILY, # 100 tab(s), 0 Refill(s), Pharmacy: [facility] 174.5, cm, 02/11/25 13:42:00 EDT, Height, kg, 02/11/25 13:42:00 EDT, Dosing Weight Start Date: 02/11/25 Stop Date: 05/22/25 Status: Ordered Medication Dispense Status: Completed Quantity: 100.0 Unit: tab(s) Total Allowed Fills: 1 Fills Dispensed: 0 metFORMIN hydrochloride 1000 mg oral tablet (9 sources) Biguanide Start: 02-11-2025 End: 06-16-2025 metFORMIN 1000 mg oral tablet (IR) Dose : 1,000 mg = 1 tab(s), Oral, BID, # 200 tab(s), 0 Refill(s), Pharmacy: [facility] 174.5, cm, 03/08/25 15:02:00 EDT, Height, kg, 03/08/25 15:02:00 EDT, Dosing Weight Start Date: 03/08/25 Stop Date: 06/16/25 Status: Ordered Medication Dispense Status: Completed Quantity: 200.0 Unit: tab(s) Total Allowed Fills: 1 Fills Dispensed: 0 Start: 08-21-2014 metFORMIN 500 mg oral tablet Dose : 500 mg = 1 tab(s), Oral, BIDM Start Date: 08/21/14 Status: Ordered Repeat number: 1 Problems Active Problems Problem Classification Problem Date Documented Date Episodic/Chronic Abdominal pain (2 sources) Abdominal pain; Translations: [Unspecified abdominal pain] Onset: 07-16-2025 Episodic Asthma (9 sources) Asthma 08-21-2014 Chronic Cancer of breast (4 sources) Malignant tumor of breast 02-16-2014 Chronic Cancer of breast (5 sources) History of malignant neoplasm of breast 02-11-2025 Episodic Cardiac dysrhythmias (1 source) Tachycardia, unspecified; Translations: [Tachycardia, unspecified] Onset: 05-30-2025 Episodic Diabetes mellitus with complications (1 source) Hyperglycemia due to type 2 diabetes mellitus 05-23-2025 Chronic Diabetes mellitus without complication (10 sources) Diabetes mellitus; Translations: [Type 2 diabetes mellitus without complication] Onset: 05-30-2025 08-21-2014 Chronic Diabetes mellitus without complication (1 source) Hyperglycemia; Translations: [Hyperglycemia, unspecified] Onset: 08-27-2024 Episodic Disorders of lipid metabolism (1 source) Mixed hyperlipidemia 05-23-2025 Chronic Essential hypertension (10 sources) Hypertensive disorder; Translations: [Essential hypertension] Onset: 03-04-2025 08-21-2014 Chronic Fracture of lower limb (3 sources) Fracture of navicular 03-18-2025 Episodic Headache, including migraine (2 sources) Headache; Translations: [Headache] Onset: 01-19-2018 Episodic Headache; including migraine (2 sources) Migraine, unspecified, not intractable, without status migrainosus; Translations: [Migraine] Onset: 08-20-2019 05-23-2025 Chronic Mood disorders (4 sources) Bipolar II disorder 03-08-2025 Chronic Other connective tissue disease (3 sources) Foot pain 03-18-2025 Episodic Other nervous system disorders (1 source) Other chronic pain; Translations: [Other chronic pain] Onset: 03-04-2025 Chronic Other nervous system disorders (2 sources) Unsteadiness on feet; Translations: [Unsteadiness on feet] Onset: 01-19-2018 Episodic Other non-traumatic joint disorders (1 source) Pain in left knee; Translations: [Pain in left knee] Onset: 04-28-2025 Episodic Other nutritional; endocrine; and metabolic disorders (4 sources) Hypervitaminosis, B complex 03-08-2025 Chronic Residual codes; unclassified (4 sources) Chronic pain 03-08-2025 Episodic Sprains and strains (13 sources) Injury of multiple muscles and tendons at shoulder and upper arm level; Translations: [Strain of unspecified muscle, fascia and tendon at shoulder and upper arm level, unspecified arm, initial encounter] Onset: 08-28-2023 Episodic Substance-related disorders (5 sources) Nicotine dependence 02-11-2025 Chronic Unclassified (2 sources) Altered mental status, unspecified; Translations: [Altered mental status, unspecified] Onset: 01-19-2018 Episodic Unclassified (5 sources) Bipolar (qualifier value) 02-16-2014 Unclassified (5 sources) Prescribed medication regimen behavior finding 02-11-2025 Unclassified (2 sources) halfway current use of non-steroidal anti-inflammatory drug 04-29-2025 Past or Other Problems Problem Classification Problem Date Documented Da te Episodic/Chronic Other aftercare (1 source) 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; Translations: [SNF (CURRENT) USE OF INSULIN] Onset: 08-20-2019 Episodic Other aftercare (1 source) Other senior living (current) drug therapy; Translations: [OTHER SNF (CURRENT) DRUG THERAPY] Onset: 08-20-2019 Episodic Otitis media and related conditions (2 sources) Otitis media; Translations: [Otitis media, unspecified, unspecified ear] Onset: 01-15-2025 Episodic Superficial injury; contusion (3 sources) Contusion of right elbow; Translations: [Contusion of right elbow, initial encounter] Onset: 03-21-2023 Episodic Urinary tract infections (2 sources) Urinary tract infectious disease; Translations: [Urinary tract infection, site not specified] Onset: 01-15-2025 Episodic Results Test Name Value Interpretation Reference Range Facility .Auto Diffon 07-16-2025 Basophil, Absolute 0.1 10 3/mcL Normal 0.0-0.3 [facility] Comment on above: Performed By: #### C TRIPP CHAVEZ, ANEU, CBC, TROPHS, GFR, LIP, ADIFF ####[id number] [place], [place] [address] Basophils/100 WBC (Bld) 0.4 % Normal 0.0-2.5 [facility] Comment on above: Performed By: #### C TRIPP CHAVEZ, ANEU, CBC, TROPHS, GFR, LIP, ADIFF ####[facility] [place], [place] [address] Eosinophil, Absolute 0.6 10 3/mcL Normal 0.0-0.7 [facility] Comment on above: Performed By: #### C TRIPP CHAVEZ, ANEU, CBC, TROPHS, GFR, LIP, ADIFF ####[facility] [place], [place] [address] Eosinophils/100 WBC (Bld) 4.8 % Normal 0.0-6.0 [facility] Comment on above: Performed By: #### C TRIPP CHAVEZ, ANEU, CBC, TROPHS, GFR, LIP, ADIFF ####[address] [address] Lymphocyte, Absolute 1.8 10 3/mcL Normal 0.9-4.3 [facility] Comment on above: Performed By: #### C TRIPP CHAVEZ, ANEU, CBC, TROPHS, GFR, LIP, ADIFF ####[place] [address] [place], [place] [address] Lymphocytes/100 WBC (Bld) 15.5 % Low 20.0-40.0 [facility] Comment on above: Performed By: #### C TRIPP CHAVEZ, ANEU, CBC, TROPHS, GFR, LIP, ADIFF ####[address] [place], [place] [address] Monocyte, Absolute 0.6 10 3/mcL Normal 0.1-1.4 [facility] Comment on above: Performed By: #### C TRIPP CHAVEZ, ANEU, CBC, TROPHS, GFR, LIP, ADIFF ####[place] [address] [address] Monocytes/100 WBC (Bld) 4.7 % Normal 2.0-13.0 [facility] Comment on above: Performed By: #### C TRIPP CHAVEZ, ANEU, CBC, TROPHS, GFR, LIP, ADIFF ####[id number] [place], [place] [address] Neutrophils/100 WBC (Bld) 74.6 % Normal 50.0-75.0 [facility] Comment on above: Performed By: #### C TRIPP CHAVEZ, ANEU, CBC, TROPHS, GFR, LIP, ADIFF ####[place] [address] [place], [place] [address] .GFRon 07-16-2025 Estimated Glomerular Filtration Rate 108 ml/min/1.73sqm Normal [facility] Comment on above: Result Comment: Stages of Chronic Kidney Disease (CKD) Stage Description eGFR(ml/min/1.73 sq.m.) CKD 1 Normal kidney function or >=90 normal kindney function with possible kidney damage (ex. Proteinuria) CKD 2 Kidney damage with mild loss 60-89 of kidney function CKD 3a Mild to moderate loss of kidney 45-59 function CKD 3b Moderate to severe loss of 30-44 of kindey function CKD 4 Severe loss of kidney function 15-29 CKD 5 Kidney failure <15 Note: (go live 2024) the eGFR calculation was updated to the 2020 CKD-EPI creatinine equation without a race factor to calculate the eGFR results. Performed By: #### C TRIPP CHAVEZ, ANEU, CBC, TROPHS, GFR, LIP, ADIFF ####[address] [address] [place], [place] [address] .MDWon 07-16-2025 Monocyte Distribution Width 17.68 Normal 0.00-20.00 [facility] Comment on above: Result Comment: For ED adult patients suspected of sepsis, MDW<=20.0 does not rule out sepsis or risk of sepsis Performed By: #### C TRIPP CHAVEZ, ANEU, CBC, TROPHS, GFR, LIP, ADIFF ####[place] [address] [place], [place] [address] .NEUABSon 07-16-2025 Neutrophil, Absolute 8.8 10 3/mcL High 2.3-8.1 [facility] Comment on above: Performed By: #### C TRIPP CHAVEZ, ANEU, CBC, TROPHS, GFR,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 of avascular necrosis in the femoral heads bilaterally is a nonacute finding without cortical collapse. There are degenerative changes of the spine with no obvious acute compression fracture. There is some central canal and foraminal compromise at L2-3. Paraspinal musculature is symmetric and unremarkable. The included lung bases are noncontributory. IMPRESSION: No ventral hernia or acute process is seen. Suspect fatty liver, correlate with LFTs. Incidental bilateral hip avascular necrosis. Other incidental findings as described. Interpreted by: Aniya Sanchez MD Preliminary Report By: Aniya Sanchez MD Electronically signed By Aniya Sanchez MD Dictated Date: 05/03/2025 10:57:05 PM Prelim Date: 05/03/2025 11:00:50 PM Sign Date: 05/03/2025 11:00:50 PM Ordering Provider: HARITHA SYLVESTER Normal [facility] LABORATORYOrdered By: Kamala Foster on 05-03-2025 Glucose [Mass/Vol] 289 mg/dL High 70 - 110 mg/dL [facility] LABORATORYOrdered By: SYSTEM SYSTEM on 05-03-2025 Albumin BCP dye [Mass/Vol] 3.8 G/dL Normal 3.5 - 5.0 G/dL AO ADM SS Albumin/Globulin [Mass ratio] 1.0 {ratio} Low 1.1 - 2.5 ratio AO ADM SS ALP [Catalytic activity/Vol] 133 U/L Normal 40 - 135 U/L AO ADM SS ALT With P-5'-P [Catalytic activity/Vol] 39 U/L Normal 14 - 59 U/L AO ADM SS AST With P-5'-P [Catalytic activity/Vol] 23 U/L Normal 10 - 40 U/L AO ADM SS Basophils (Bld) [#/Vol] 0.1 103/mcL Normal 0.0 - 0.3 10^3/mcL AO Workflow SS Basophils/100 WBC (Bld) 0.5 % Normal 0.0 - 2.5 % AO Workflow SS Bilirubin [Mass/Vol] 0.2 mg/dL Normal 0.2 - 1 .0 mg/dL AO ADM SS Comment on above: Interpretive Data: U se of this assay is not recommended for patients undergoing treatment with eltrombopag due to the potential for falsely elevated results. Calcium [Mass/Vol] 8.9 mg/dL Normal 8.4 - 10. 2 mg/dL AO ADM SS Chloride [Moles/Vol] 98 mmol/L Normal 98 - 10 7 mmol/L AO ADM SS CO2 [Moles/Vol] 24 mmol/L Normal 22 - 29 mmol/L AO ADM SS Creatinine [Mass/Vol] 0.93 mg/dL Normal 0.51 - 0.95 mg/dL AO ADM SS Electrolyte Balance 11.0 mEq/L Normal 4.0 - 15 .0 mEq/L AO ADM SS Eosinophil, Absolute 0.4 103/mcL Normal 0.0 - 0 .7 10^3/mcL AO Workflow SS Eosinophils/100 WBC (Bld) 3.3 % Normal 0.0 - 6.0 % AO Workflow SS Erythrocyte distribution width (RBC) [Ratio] 13.7 % Normal 11.5 - 15.5 % AO Workflow SS Estimated Glomerular Filtration Rate 74 ml/min/1.73sqm Invalid Interpretation Code AO Chemistry S Comment on above: Interpretive Data: Stages of Chronic Kidney Disease (CKD) Stage Description eGFR(ml/min/1.73 sq.m.) CKD 1 Normal kidney function or >=90 normal kindney function with possible kidney damage (ex. Proteinuria) CKD 2 Kidney damage with mild loss 60-89 of kidney function CKD 3a Mild to moderate loss of kidney 45-59 function CKD 3b Moderate to severe loss of 30-44 of kindey function CKD 4 Severe loss of kidney function 15-29 CKD 5 Kidney failure <15 Note: (go live 2024) the eGFR calculation was updated to the 2020 CKD-EPI creatinine equation without a race factor to calculate the eGFR results. Globulin 3.9 G/dL Normal 2.7 - 4.4 G/dL AO ADM SS Glucose [Mass/Vol] 447 mg/dL Invalid Interpretation Code 70 - 105 mg/dL AO ADM SS Hematocrit (Bld) [Volume fraction] 42.5 % Normal 34.0 - 46.0 % AO Workflow SS Hemoglobin (Bld) [Mass/Vol] 14.0 G/dL Normal 12.0 - 16.0 G/dL AO Workflow SS Lipase [Catalytic activity/Vol] 65 U/L Normal 16 - 77 U/L AO ADM SS Lymphocytes (Bld) [#/Vol] 2.7 103/mcL Normal 0.9 - 4.3 10^3/mcL AO Workflow SS Lymphocytes/100 WBC (Bld) 23.4 % Normal 20.0 - 40.0 % AO Workflow SS MCH (RBC) [Entitic mass] 30.1 pg Normal 27.0 - 33.0 pg AO Workflow SS MCHC 33.0 G/dL Normal 32.0 - 36.0 G/dL AO Workflow SS MCV (RBC) [Entitic vol] 91.4 fL Normal 80.0 - 99.0 fL AO Workflow SS Monocyte distribution width Auto (Bld) [Entitic vol] 18.33 1 Normal 0.00 - 20.00 AO Workflow SS Comment on above: Result Comment: For ED adult patients suspected of sepsis, MDW<=20.0 does not rule out sepsis or risk of sepsis Monocytes (Bld) [#/Vol] 0.6 103/mcL Normal 0.1 - 1.4 10^3/mcL AO Workflow SS Monocytes/100 WBC (Bld) 5.5 % Normal 2.0 - 13.0 % AO Workflow SS Neutrophils (Bld) [#/Vol] 7.7 103/mcL Normal 2.3 - 8.1 10^3/mcL AO Workflow SS Neutrophils/100 WBC (Bld) 67.3 % Normal 50.0 - 75.0 % AO Workflow SS Platelet mean volume (Bld) [Entitic vol] 8.8 fL Normal 6.6 - 10.5 fL AO Workflow SS Platelets (Bld) [#/Vol] 227 103/mcL Normal 150 - 450 10^3/mcL AO Workflow SS Potassium [Moles/Vol] 4.1 mmol/L Normal 3.5 - 5.1 mmol/L AO ADM SS Protein [Mass/Vol] 7.7 G/dL Normal 6.4 - 8.2 G/dL AO ADM SS RBC (Bld) [#/Vol] 4.65 106/mcL Normal 4.10 - 5.3 0 10^6/mcL AO Workflow SS Sodium [Moles/Vol] 133 mmol/L Low 136 - 145 mmol/L AO ADM SS Urea nitrogen [Mass/Vol] 16 mg/dL Normal 7 - 18 mg/dL AO ADM SS Urea nitrogen/Creatinine [Mass ratio] 17 ratio Normal 7 - 27 ratio AO ADM SS WBC (Bld) [#/Vol] 11.5 103/mcL High 4.5 - 10.8 10^3/mcL AO Workflow SS LABORATORYOrdered By: Halie Brand on 05-03-2025 Appearance (U) Clear (05/03/25 7:47 PM) Normal Clear AO Auto Urine SS Bilirubin Ql (U) Negative (05/03/25 7:47 PM) Normal Negative AO Auto Urine SS Color (U) Yellow (05/03/25 7:47 PM) Normal AO Auto Urine SS Glucose Test strip (U) [Mass/Vol] >=1000 mg/dL Invalid Interpretation Code Negative AO Auto Urine SS Hemoglobin Auto test strip (U) [Mass/Vol] Negative (05/03/25 7:47 PM) Normal Negative AO Auto Urine SS Ketones Ql (U) Negative Normal Negative AO Auto Ur ine SS UA Leuk Est Negative (05/03/25 7:47 PM) Normal Negative AO Auto Urine SS UA Nitrite Negative (05/03/25 7:47 PM) Normal Negative AO Auto Urine SS UA pH 6.0 (05/03/25 7:47 PM) Normal 5.0 - 8.0 AO Auto Urine SS UA Protein Negative Normal Negative AO Auto Urine SS UA Spec Grav 1.015 (05/03/25 7:47 PM) Normal 1.015-1.025 AO Auto Urine SS UA Specimen Type Not Given (05/03/25 7:47 PM) Normal AO Auto Urine SS UA Urobilinogen 0.2 E.U./dL Normal 0.2-1.0 AO Auto Urine SS LIPon 05-03-2025 Lipase Level 65 U/L Normal 16-77 [facility] Comment on above: Performed By: #### A BRENDON, CBC, MDW, GFR, ADIFF, LIP, CMP ####[address] [place], [place] [address] UAon 05-03-2025 Color (U) Yellow Normal [facility] Comment on above: Performed By: #### U A ####[address] [place], [place] [address] Glucose (U) [Mass/Vol] mg/dL Abnormal Negative [facility] Comment on above: Performed By: #### U A ####[address] [place], [place] [address] Ketones Ql (U) Negative Normal Negative [facility] Comment on above: Performed By: #### U A ####[place] [address] [place], [place] [address] UA Appear Clear Normal Clear [facility] Comment on above: Performed By: #### U A ####[address] [place], [place] [address] UA Blood Negative Normal Negative [facility] Comment on above: Performed By: #### U A ####[address] [place], [place] [address] UA Leuk Est Negative Normal Negative [facility] Comment on above: Performed By: #### U A ####[address] [address] UA Nitrite Negative Normal Negative [facility] Comment on above: Performed By: #### U A ####[address] [place] [address] UA pH 6.0 Normal 5.0 - 8.0 [facility] Comment on above: Performed By: #### U A ####[place] [address] [place] [address] UA Protein Negative Normal Negative [facility] Comment on above: Performed By: #### U A ####[address] [place] [address] UA Spec Grav 1.015 Normal 1.015-1.025 [facility] Comment on above: Performed By: #### U A ####[address] [place] [address] UA Specimen Type Not Given Normal [facility] Comment on above: Performed By: #### U A ####[address] [place] [address] UA Urobilinogen 0.2 E.U./dL Normal 0.2-1.0 [facility] Comment on above: Performed By: #### U A ####[place] [address] [place] [address] Urobilinogen (U) [Mass/Vol] Negative Normal Negative [facility] Comment on above: Performed By: #### U A ####[place] [address] [place] [address] XR KNEE THREE VIEWS LEFTon 0 04-30-2025 XR KNEE THREE VIEWS LEFT ORIGINAL EXAMINATION: THREE XRAY VIEWS OF THE LEFT KNEE 04/28/2025 6:37 pm COMPARISON: None. HISTORY: ORDERING SYSTEM PROVIDED HISTORY: Reason for Exam: chronic knee pian eval severity arthritis FINDINGS: No fracture or malalignment 1.2 cm osteochondral defect in the lateral trochlea, with surrounding sclerosis. Patellofemoral joint space narrowing laterally. No substantial arthrosis in the lateral and medial compartments. 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 No effusion. Interpreted by: Osman Louis Preliminary Report By: Osman Louis Electronically signed By Osman Louis Dictated Date: 04/30/2025 4:58:27 PM Prelim Date: 04/30/2025 5:01:40 PM Sign Date: 04/30/2025 5:01:40 PM Ordering Provider: LIBBY SUAZO [facility] XR FOOT MINIMUM 3 VIEWS CAPRICE Skel[place] 03-15-2025 XR FOOT MINIMUM 3 VIEWS RIGHT ORIGINAL EXAMINATION: THREE XRAY VIEWS OF THE RIGHT FOOT03/15/2025 2:17 pm COMPARISON: None HISTORY: ORDERING SYSTEM PROVIDED HISTORY: Reason for Exam: trauma FINDINGS: There is a cortical irregularity seen at the medial navicular which is thought to be from an accessory navicular bone rather than a fracture. No other fracture or dislocation is seen in the foot. There is no radiopaque foreign body. There is mild superficial soft tissue swelling overlying the dorsum of the foot. Achilles spur. Mild diffuse osteopenia. 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 No other fracture or dislocation is seen. I have personally reviewed the images of this examination and agree with the resident's findings and interpretation. Interpreted by: Aniya Sanchez MD Preliminary Report By: Tamera Rodríguez MD Electronically signed By Aniya Sanchez MD Dictated Date: 03/15/2025 2:29:45 PM Prelim Date: 03/15/2025 3:52:39 PM Sign Date: 03/15/2025 3:52:39 PM Ordering Provider: ABI LOPEZ Interpreted by: Aniya Sanchez MD Preliminary Report By: Tamera Rodríguez MD Electronically signed By Aniya Sanchez MD Dictated Date: 03/15/2025 2:29:45 PM Prelim Date: 03/15/2025 3:52:39 PM Sign Date: 03/15/2025 3:52:39 PM Ordering Provider: ABI LOPEZ [facility] XR HAND MINIMUM 3 VIEWS LEFT on 03-15-2025 XR HAND MINIMUM 3 VIEWS LEFT ORIGINAL EXAMINATION: THREE XRAY VIEWS OF THE LEFT HAND03/15/2025 1:58 pm COMPARISON: None HISTORY: ORDERING SYSTEM PROVIDED HISTORY: Reason for Exam: trauma fall, pain FINDINGS: No acute fracture or dislocation is identified. The joint spaces are maintained. There is no radiopaque foreign body. There is mild periarticular osteopenia. Mild degenerative changes in the hand and wrist. IMPRESSION: No acute fracture or dislocation. I have personally reviewed the images of this examination and agree with the resident's findings and interpretation. Interpreted by: Aniya Sanchez MD Preliminary Report By: Tamera Rodríguez MD Electronically signed By Aniya Sanchez MD Dictated Date: 03/15/2025 2:11:56 PM Prelim Date: 03/15/2025 2:19:56 PM Sign Date: 03/15/2025 2:19:56 PM Ordering Provider: ABI LOPEZ Interpreted by: Aniya Sanchez MD Preliminary Report By: Tamera Rodríguez MD Electronically signed By Aniya Sanchez MD Dictated Date: 03/15/2025 2:11:56 PM Prelim Date: 03/15/2025 2:19:56 PM Sign Date: 03/15/2025 2:19:56 PM Ordering Provider: ABI LOPEZ Normal [facility] APOBon 03-06-2025 Apolipoprotein B [Mass/Vol] 125 mg/dL High <90 [facility] Comment on above: Result Comment: Jessie rable < 90 Borderline High 90 - 99 High 100 - 130 Very High >130 ASCVD RISK THERAPEUTIC TARGET CATEGORY APO B (mg/dL) Very High Risk <80 (if extreme risk <70) High Risk <90 Moderate Risk <90 Performed At: [facility] [id number] Vaibhav Caba MD Ph:[phone] Performed By: #### A BRENDON, CBC, A1C, 483542, LIPID, CMP, [id number], TSHR, MG, GFR, VIDH, FERR, ADIFF, FES ####[facility] [place], [place] [address]#### B12 ####[address] [address] LIPOAon 03-06-2025 Lipoprotein a [Moles/Vol] 9.0 nmol/L Normal <75.0 [facility] Comment on above: Result Comment: This test was developed and its performance characteristics determined by [facility]. It has not been cleared or approved by the Food and Drug Administration. Note: Values greater than or equal to 75.0 nmol/L may indicate an independent risk factor for CHD, but must be evaluated with caution when applied to non- populations due to the influence of genetic factors on Lp(a) across ethnicities. Performed At: [facility] [id number] Ryan Stark PhD Ph:[phone] Performed By: #### A BRENDON, CBC, A1C, 494706, LIPID, CMP, [id number], TSHR, MG, GFR, VIDH, FERR, ADIFF, FES ####[place] [address]#### B12 ####[place] [address] B12on 03-05-2025 Cobalamin (Vitamin B12) [Mass/Vol] 1989 pg/mL High 211-911 [facility] Comment on above: Performed By: #### A BRENDON, CBC, A1C, 150373, LIPID, CMP, [id number], TSHR, MG, GFR, VIDH, FERR, ADIFF, FES ####[place] [address]#### B12 ####[place] [address] .Auto Diffon 03-04-2025 Basophil, Absolute 0.1 10 3/mcL Normal 0.0-0.3 [facility] Comment on above: Performed By: #### A BRENDON, CBC, A1C, 763493, LIPID, CMP, [id number], TSHR, MG, GFR, VIDH, FERR, ADIFF, FES ####[place] [address]#### B12 ####[place] [address] Basophils/100 WBC (Bld) 0.8 % Normal 0.0-2.5 [facility] Comment on above: Performed By: #### A BRENDON, CBC, A1C, 020289, LIPID, CMP, [id number], TSHR, MG, GFR, VIDH, FERR, ADIFF, FES ####[place] [address]#### B12 ####[address] [address] Eosinophil, Absolute 0.6 10 3/mcL Normal 0.0-0.7 [facility] Comment on above: Performed By: #### A BRENDON, CBC, A1C, 234078, LIPID, CMP, [id number], TSHR, MG, GFR, VIDH, FERR, ADIFF, FES ####[place] [address]#### B12 ####[address] [address] Eosinophils/100 WBC (Bld) 5.9 % Normal 0.0-6.0 [facility] Comment on above: Performed By: #### A BRENDON, CBC, A1C, 069452, LIPID, CMP, [id number], TSHR, MG, GFR, VIDH, FERR, ADIFF, FES ####[place] [address]#### B12 ####[address] [address] Lymphocyte, Absolute 2.9 10 3/mcL Normal 0.9-4.3 [facility] Comment on above: Performed By: #### A BRENDON, CBC, A1C, 532271, LIPID, CMP, [id number], TSHR, MG, GFR, VIDH, FERR, ADIFF, FES ####[place] [address]#### B12 ####[address] [address] Lymphocytes/100 WBC (Bld) 27.8 % Normal 20.0-40.0 [facility] Comment on above: Performed By: #### A BRENDON, CBC, A1C, 186128, LIPID, CMP, [id number], TSHR, MG, GFR, VIDH, FERR, ADIFF, FES ####[address] [address]#### B12 ####[address] [address] Monocyte, Absolute 0.6 10 3/mcL Normal 0.1-1.4 [facility] Comment on above: Performed By: #### A BRENDON, CBC, A1C, 228363, LIPID, CMP, [id number], TSHR, MG, GFR, VIDH, FERR, ADIFF, FES ####[place] [address]#### B12 ####[address] [address] Monocytes/100 WBC (Bld) 6.2 % Normal 2.0-13.0 [facility] Comment on above: Performed By: #### A BRENDON, CBC, A1C, 881119, LIPID, CMP, [id number], TSHR, MG, GFR, VIDH, FERR, ADIFF, FES ####[place] [address]#### B12 ####[address] [address] Neutrophils/100 WBC (Bld) 59.3 % Normal 50.0-75.0 [facility] Comment on above: Performed By: #### A BRENDON, CBC, A1C, 093576, LIPID, CMP, [id number], TSHR, MG, GFR, VIDH, FERR, ADIFF, FES ####[place] [address]#### B12 ####[address] [address] .GFRon 03-04-2025 Estimated Glomerular Filtration Rate 92 ml/min/1.73sqm Normal [facility] Comment on above: Result Comment: Stages of Chronic Kidney Disease (CKD) Stage Description eGFR(ml/min/1.73 sq.m.) CKD 1 Normal kidney function or >=90 normal kindney function with possible kidney damage (ex. Proteinuria) CKD 2 Kidney damage with mild loss 60-89 of kidney function CKD 3a Mild to moderate loss of kidney 45-59 function CKD 3b Moderate to severe loss of 30-44 of kindey function CKD 4 Severe loss of kidney function 15-29 CKD 5 Kidney failure <15 Note: (go live 2024) the eGFR calculation was updated to the 2020 CKD-EPI creatinine equation without a race factor to calculate the eGFR results. Performed By: #### A BRENDON, CBC, A1C, 003324, LIPID, CMP, [id number], TSHR, MG, GFR, VIDH, FERR, ADIFF, FES ####[address] [address]#### B12 ####[address] [address] .NEUABSon 03-04-2025 Neutrophil, Absolute 6.1 10 3/mcL Normal 2.3-8.1 [facility] Comment on above: Performed By: #### A BRENDON, CBC, A1C, 166576, LIPID, CMP, [id number], TSHR, MG, GFR, VIDH, FERR, ADIFF, FES ####[address] [address]#### B12 ####[place] [address] A1Con 03-04-2025 Glucose [Mass/Vol] 283 mg/dL Normal [facility] Comment on above: Result Comment: Payton mated Average Glucose calculated by equation ((28.7xA1C)-46.7) Estimated average glucose (eAG) is a calculated value from Hemoglobin A1C and is personal financial representative of the average blood glucose level in the last 2-3 month period. Normal range: less than 114 mg/dL Performed By: #### A BRENDON, CBC, A1C, 889846, LIPID, CMP, [id number], TSHR, MG, GFR, VIDH, FERR, ADIFF, FES ####[address] [address]#### B12 ####[address] [address] HbA1c (Bld) [Mass fraction] 11.5 % High 4.3-6.4 [facility] Comment on above: Performed By: #### A BRENDON, CBC, A1C, 715778, LIPID, CMP, [id number], TSHR, MG, GFR, VIDH, FERR, ADIFF, FES ####[address] [address]#### B12 ####[address] [address] CBCon 03-04-2025 Erythrocyte distribution width (RBC) [Ratio] 13.1 % Normal 11.5-15.5 [facility] Comment on above: Performed By: #### A BRENDON, CBC, A1C, 216319, LIPID, CMP, [id number], TSHR, MG, GFR, VIDH, FERR, ADIFF, FES ####[place] [address]#### B12 ####[address] [address] Hematocrit (Bld) [Volume fraction] 41.4 % Normal 34.0-46.0 [facility] Comment on above: Performed By: #### A BRENDON, CBC, A1C, 903158, LIPID, CMP, [id number], TSHR, MG, GFR, VIDH, FERR, ADIFF, FES ####[place] [address]#### B12 ####[place] [address] Hgb 14.1 G/dL Normal 12.0-16.0 [facility] Comment on above: Performed By: #### A BRENDON, CBC, A1C, 535775, LIPID, CMP, [id number], TSHR, MG, GFR, VIDH, FERR, ADIFF, FES ####[address] [address]#### B12 ####[address] [address] MCH (RBC) [Entitic mass] 31.1 pg Normal 27.0-33.0 [facility] Comment on above: Performed By: #### A BRENDON, CBC, A1C, 442887, LIPID, CMP, [id number], TSHR, MG, GFR, VIDH, FERR, ADIFF, FES ####[place] [address]#### B12 ####[place] [address] MCHC 34.0 G/dL Normal 32.0-36.0 [facility] Comment on above: Performed By: #### A BRENDON, CBC, A1C, 406757, LIPID, CMP, [id number], TSHR, MG, GFR, VIDH, FERR, ADIFF, FES ####[place] [address]#### B12 ####[place] [address] MCV (RBC) [Entitic vol] 91.3 fL Normal 80.0-99.0 [facility] Comment on above: Performed By: #### A BRENDON, CBC, A1C, 494628, LIPID, CMP, [id number], TSHR, MG, GFR, VIDH, FERR, ADIFF, FES ####[place] [address]#### B12 ####[place] [address] Platelet 220 10 3/mcL Normal 150-450 [facility] Comment on above: Performed By: #### A BRENDON, CBC, A1C, 076408, LIPID, CMP, [id number], TSHR, MG, GFR, VIDH, FERR, ADIFF, FES ####[place] [address]#### B12 ####[place] [address] Platelet mean volume (Bld) [Entitic vol] 9.8 fL Normal 6.6-10.5 [facility] Comment on above: Performed By: #### A BRENDON, CBC, A1C, 852993, LIPID, CMP, [id number], TSHR, MG, GFR, VIDH, FERR, ADIFF, FES ####[place] [address]#### B12 ####[place] [address] RBC 4.53 10 6/mcL Normal 4.10-5.30 [facility] Comment on above: Performed By: #### A BRENDON, CBC, A1C, 065230, LIPID, CMP, [id number], TSHR, MG, GFR, VIDH, FERR, ADIFF, FES ####[place] [address]#### B12 ####[place] [address] WBC 10.3 10 3/mcL Normal 4.5-10.8 [facility] Comment on above: Performed By: #### A BRENDON, CBC, A1C, 326900, LIPID, CMP, [id number], TSHR, MG, GFR, VIDH, FERR, ADIFF, FES ####[place] [address]#### B12 ####[place] [address] CMPon 03-04-2025 Albumin Level 3.8 G/dL Normal 3.5-5.0 [facility] Comment on above: Performed By: #### A BRENDON, CBC, A1C, 353510, LIPID, CMP, [id number], TSHR, MG, GFR, VIDH, FERR, ADIFF, FES ####[place] [address]#### B12 ####[place] [address] Albumin/Globulin [Mass ratio] 0.8 {ratio} Low 1.1-2.5 [facility] Comment on above: Performed By: #### A BRENDON, CBC, A1C, 862178, LIPID, CMP, [id number], TSHR, MG, GFR, VIDH, FERR, ADIFF, FES ####[place] [address]#### B12 ####[place] [address] ALP [Catalytic activity/Vol] 136 U/L High 40-135 [facility] Comment on above: Performed By: #### A BRENDON, CBC, A1C, 370103, LIPID, CMP, [id number], TSHR, MG, GFR, VIDH, FERR, ADIFF, FES ####[place] [id number]#### B12 ####[address] [address] ALT [Catalytic activity/Vol] 43 U/L Normal 14-59 [facility] Comment on above: Performed By: #### A BRENDON, CBC, A1C, 020634, LIPID, CMP, [id number], TSHR, MG, GFR, VIDH, FERR, ADIFF, FES ####[place] [address]#### B12 ####[place] [address] AST [Catalytic activity/Vol] 32 U/L Normal 10-40 [facility] Comment on above: Performed By: #### A BRENDON, CBC, A1C, 806261, LIPID, CMP, [id number], TSHR, MG, GFR, VIDH, FERR, ADIFF, FES ####[place] [address]#### B12 ####[place] [address] Bili Total 0.3 mg/dL Normal 0.2-1.0 [facility] Comment on above: Result Comment: Use of this assay is not recommended for patients undergoing treatment with eltrombopag due to the potential for falsely elevated results. Performed By: #### A BRENDON, CBC, A1C, 762623, LIPID, CMP, [id number], TSHR, MG, GFR, VIDH, FERR, ADIFF, FES ####[place] [address]#### B12 ####[place] [address] BUN/Creatinine Ratio 14 ratio Normal 7-27 [facility] Comment on above: Performed By: #### A BRENDON, CBC, A1C, 194827, LIPID, CMP, [id number], TSHR, MG, GFR, VIDH, FERR, ADIFF, FES ####[place] [address]#### B12 ####[address] [address] Calcium [Mass/Vol] 9.5 mg/dL Normal 8.4-10.2 [facility] Comment on above: Performed By: #### A BRENDON, CBC, A1C, 192983, LIPID, CMP, [id number], TSHR, MG, GFR, VIDH, FERR, ADIFF, FES ####[place] [address]#### B12 ####[place] [address] Chloride [Moles/Vol] 100 mmol/L Normal 98-107 [facility] Comment on above: Performed By: #### A BRENDON, CBC, A1C, 034749, LIPID, CMP, [id number], TSHR, MG, GFR, VIDH, FERR, ADIFF, FES ####[place] [address]#### B12 ####[place] [address] CO2 [Moles/Vol] 27 mmol/L Normal 22-29 [facility] Comment on above: Performed By: #### A BRENDON, CBC, A1C, 288800, LIPID, CMP, [id number], TSHR, MG, GFR, VIDH, FERR, ADIFF, FES ####[place] [address]#### B12 ####[place] [address] Creatinine [Mass/Vol] 0.78 mg/dL Normal 0.51-0.95 [facility] Comment on above: Performed By: #### A BRENDON, CBC, A1C, 195082, LIPID, CMP, [id number], TSHR, MG, GFR, VIDH, FERR, ADIFF, FES ####[place] [address]#### B12 ####[place] [address] Electrolyte Balance 11.0 mEq/L Normal 4.0-15.0 [facility] Comment on above: Performed By: #### A BRENDON, CBC, A1C, 465783, LIPID, CMP, [id number], TSHR, MG, GFR, VIDH, FERR, ADIFF, FES ####[place] [address]#### B12 ####[place] [address] Globulin 4.6 G/dL High 2.7-4.4 [facility] Comment on above: Performed By: #### A BRENDON, CBC, A1C, 434362, LIPID, CMP, [id number], TSHR, MG, GFR, VIDH, FERR, ADIFF, FES ####[place] [address]#### B12 ####[place] [address] Glucose [Mass/Vol] 280 mg/dL High 70-105 [facility] Comment on above: Performed By: #### A BRENDON, CBC, A1C, 945846, LIPID, CMP, [id number], TSHR, MG, GFR, VIDH, FERR, ADIFF, FES ####[place] [address]#### B12 ####[place] [address] Potassium [Moles/Vol] 3.8 mmol/L Normal 3.5-5.1 [facility] Comment on above: Performed By: #### A BRENDON, CBC, A1C, 422851, LIPID, CMP, [id number], TSHR, MG, GFR, VIDH, FERR, ADIFF, FES ####[place] [address]#### B12 ####[place] [address] Sodium [Moles/Vol] 138 mmol/L Normal 136-145 [facility] Comment on above: Performed By: #### A BRENDON, CBC, A1C, 515898, LIPID, CMP, [id number], TSHR, MG, GFR, VIDH, FERR, ADIFF, FES ####[place] [address]#### B12 ####[place] [address] Total Protein 8.4 G/dL High 6.4-8.2 [facility] Comment on above: Performed By: #### A BRENDON, CBC, A1C, 983784, LIPID, CMP, [id number], TSHR, MG, GFR, VIDH, FERR, ADIFF, FES ####[place] [address]#### B12 ####[place] [address] Urea nitrogen [Mass/Vol] 11 mg/dL Normal 7-18 [facility] Comment on above: Performed By: #### A BRENDON, CBC, A1C, 777974, LIPID, CMP, [id number], TSHR, MG, GFR, VIDH, FERR, ADIFF, FES ####[place] [address]#### B12 ####[place] [address] Ruy 03-04-2025 Ferritin [Mass/Vol] 136.0 ng/mL Normal 8.0-252.0 [facility] Comment on above: Performed By: #### A BRENDON, CBC, A1C, 323882, LIPID, CMP, [id number], TSHR, MG, GFR, VIDH, FERR, ADIFF, FES ####[place] [address]#### B12 ####[place] [address] FESon 03-04-2025 Iron [Mass/Vol] 57 ug/dL Normal 50-170 [facility] Comment on above: Performed By: #### A BRENDON, CBC, A1C, 320775, LIPID, CMP, [id number], TSHR, MG, GFR, VIDH, FERR, ADIFF, FES ####[facility] [place], [place] [address]#### B12 ####[place] [address] Iron Sat 17 % Normal [facility] Comment on above: Performed By: #### A BRENDON, CBC, A1C, 180071, LIPID, CMP, [id number], TSHR, MG, GFR, VIDH, FERR, ADIFF, FES ####[address] [address]#### B12 ####[place] [address] TIBC 330 mcg/dL Normal 250-450 [facility] Comment on above: Performed By: #### A BRENDON, CBC, A1C, 710837, LIPID, CMP, [id number], TSHR, MG, GFR, VIDH, FERR, ADIFF, FES ####[place] [address]#### B12 ####[place] [address] LABORATORYOrdered By: SYSTEM SYSTEM on 03-04-2025 25-hydroxyvitamin D3 [Mass/Vol] 22.4 ng/mL Invalid Interpretation Code AO ADM SS Comment on above: Interpretive Data: I nterpretive Values Based on Total 25(OH) Vitamin D: Deficient <20 ng/mL Insufficient 20 - <30 ng/mL Sufficient 30-100 ng/mL Albumin BCP dye [Mass/Vol] 3.8 G/dL Normal 3.5 - 5.0 G/dL AO ADM SS Albumin/Globulin [Mass ratio] 0.8 {ratio} Low 1.1 - 2.5 ratio AO ADM SS ALP [Catalytic activity/Vol] 136 U/L High 40 - 135 U/L AO ADM SS ALT With P-5'-P [Catalytic activity/Vol] 43 U/L Normal 14 - 59 U/L AO ADM SS AST With P-5'-P [Catalytic activity/Vol] 32 U/L Normal 10 - 40 U/L AO ADM SS Basophils (Bld) [#/Vol] 0.1 103/mcL Normal 0.0 - 0.3 10^3/mcL AO Workflow SS Basophils/100 WBC (Bld) 0.8 % Normal 0.0 - 2.5 % AO Workflow SS Bilirubin [Mass/Vol] 0.3 mg/dL Normal 0.2 - 1 .0 mg/dL AO ADM SS Comment on above: Interpretive Data: U se of this assay is not recommended for patients undergoing treatment with eltrombopag due to the potential for falsely elevated results. Calcium [Mass/Vol] 9.5 mg/dL Normal 8.4 - 10. 2 mg/dL AO ADM SS Chloride [Moles/Vol] 100 mmol/L Normal 98 - 10 7 mmol/L AO ADM SS CO2 [Moles/Vol] 27 mmol/L Normal 22 - 29 mmol/L AO ADM SS Creatinine [Mass/Vol] 0.78 mg/dL Normal 0.51 - 0.95 mg/dL AO ADM SS Electrolyte Balance 11.0 mEq/L Normal 4.0 - 15 .0 mEq/L AO ADM SS Eosinophil, Absolute 0.6 103/mcL Normal 0.0 - 0 .7 10^3/mcL AO Workflow SS Eosinophils/100 WBC (Bld) 5.9 % Normal 0.0 - 6.0 % AO Workflow SS Erythrocyte distribution width (RBC) [Ratio] 13.1 % Normal 11.5 - 15.5 % AO Workflow SS Estimated Glomerular Filtration Rate 92 ml/min/1.73sqm Invalid Interpretation Code AO Chemistry S Comment on above: Interpretive Data: Stages of Chronic Kidney Disease (CKD) Stage Description eGFR(ml/min/1.73 sq.m.) CKD 1 Normal kidney function or >=90 normal kindney function with possible kidney damage (ex. Proteinuria) CKD 2 Kidney damage with mild loss 60-89 of kidney function CKD 3a Mild to moderate loss of kidney 45-59 function CKD 3b Moderate to severe loss of 30-44 of kindey function CKD 4 Severe loss of kidney function 15-29 CKD 5 Kidney failure <15 Note: (go live 2024) the eGFR calculation was updated to the 2020 CKD-EPI creatinine equation without a race factor to calculate the eGFR results. Ferritin [Mass/Vol] 136.0 ng/mL Normal 8.0 - 25 2.0 ng/mL AO ADM SS Globulin 4.6 G/dL High 2.7 - 4.4 G/dL AO ADM SS Glucose [Mass/Vol] 283 mg/dL Invalid Interpretation Code AO Chemistry S Comment on above: Interpretive Data: E stimated average glucose (eAG) is a calculated value from Hemoglobin A1C and is personal financial representative of the average blood glucose level in the last 2-3 month period. Normal range: less than 114 mg/dL Glucose [Mass/Vol] 280 mg/dL High 70 - 105 mg/dL AO ADM SS HbA1c (Bld) [Mass fraction] 11.5 % High 4.3 - 6.4 % AO ADM SS Hematocrit (Bld) [Volume fraction] 41.4 % Normal 34.0 - 46.0 % AO Workflow SS Hemoglobin (Bld) [Mass/Vol] 14.1 G/dL Normal 12.0 - 16.0 G/dL AO Workflow SS Iron [Mass/Vol] 57 ug/dL Normal 50 - 170 mcg/dL AO ADM SS Iron binding capacity [Mass/Vol] 330 mcg/dL Normal 250 - 450 mcg/dL AO ADM SS Iron Sat 17 % Invalid Interpretation Code AO ADM SS Lymphocytes (Bld) [#/Vol] 2.9 103/mcL Normal 0.9 - 4.3 10^3/mcL AO Workflow SS Lymphocytes/100 WBC (Bld) 27.8 % Normal 20.0 - 40.0 % AO Workflow SS Magnesium [Mass/Vol] 2.1 mg/dL Normal 1.8 - 2 .4 mg/dL AO ADM SS MCH (RBC) [Entitic mass] 31.1 pg Normal 27.0 - 33.0 pg AO Workflow SS MCHC 34.0 G/dL Normal 32.0 - 36.0 G/dL AO Workflow SS MCV (RBC) [Entitic vol] 91.3 fL Normal 80.0 - 99.0 fL AO Workflow SS Monocytes (Bld) [#/Vol] 0.6 103/mcL Normal 0.1 - 1.4 10^3/mcL AO Workflow SS Monocytes/100 WBC (Bld) 6.2 % Normal 2.0 - 13.0 % AO Workflow SS Neutrophils (Bld) [#/Vol] 6.1 103/mcL Normal 2.3 - 8.1 10^3/mcL AO Workflow SS Neutrophils/100 WBC (Bld) 59.3 % Normal 50.0 - 75.0 % AO Workflow SS Platelet mean volume (Bld) [Entitic vol] 9.8 fL Normal 6.6 - 10.5 fL AO Workflow SS Platelets (Bld) [#/Vol] 220 103/mcL Normal 150 - 450 10^3/mcL AO Workflow SS Potassium [Moles/Vol] 3.8 mmol/L Normal 3.5 - 5.1 mmol/L AO ADM SS Protein [Mass/Vol] 8.4 G/dL High 6.4 - 8.2 G/dL AO ADM SS RBC (Bld) [#/Vol] 4.53 106/mcL Normal 4.10 - 5.3 0 10^6/mcL AO Workflow SS Sodium [Moles/Vol] 138 mmol/L Normal 136 - 145 mmol/L AO ADM SS TSH Qn 1.54 m[IU]/L Normal 0.36 - 3.74 mcIU/mL AO ADM SS Urea nitrogen [Mass/Vol] 11 mg/dL Normal 7 - 18 mg/dL AO ADM SS Urea nitrogen/Creatinine [Mass ratio] 14 ratio Normal 7 - 27 ratio AO ADM SS WBC (Bld) [#/Vol] 10.3 103/mcL Normal 4.5 - 10.8 10^3/mcL AO Workflow SS LABORATORYOrdered By: Edmond Graham on 03-04-2025 Cholesterol [Mass/Vol] 210 mg/dL High 0 - 200 mg/dL AO ADM SS Comment on above: Interpretive Data: C holesterol Reference Interval: Less than 200 Desirable 200-239 Borderline high risk 240 and above High risk Cholesterol in HDL [Mass/Vol] 37 mg/dL Low 40 - 60 mg/dL AO ADM SS Cholesterol in LDL [Mass/Vol] 105 mg/dL Normal 0 - 130 mg/dL AO ADM SS Triglyceride [Mass/Vol] 340 mg/dL High 0 - 150 mg/dL AO ADM SS Comment on above: Interpretive Data: T riglyceride Reference Interval: Less than 150 Normal 150-199 Borderline high risk 200-499 High risk 500 or higher Very high risk LIPIDon 03-04-2025 Cholesterol [Mass/Vol] 210 mg/dL High 0-200 [facility] Comment on above: Result Comment: Chol esterol Reference Interval: Less than 200 Desirable 200-239 Borderline high risk 240 and above High risk Performed By: #### A BRENDON, CBC, A1C, 598353, LIPID, CMP, [id number], TSHR, MG, GFR, VIDH, FERR, ADIFF, FES ####[place] [address]#### B12 ####[address] [address] Cholesterol in HDL [Mass/Vol] 37 mg/dL Low 40-60 [facility] Comment on above: Performed By: #### A BRENDON, CBC, A1C, 788142, LIPID, CMP, [id number], TSHR, MG, GFR, VIDH, FERR, ADIFF, FES ####[place] [address]#### B12 ####[address] [address] Cholesterol in LDL [Mass/Vol] 105 mg/dL Normal 0-130 [facility] Comment on above: Performed By: #### A BRENDON, CBC, A1C, 900663, LIPID, CMP, [id number], TSHR, MG, GFR, VIDH, FERR, ADIFF, FES ####[place] [address]#### B12 ####[address] [address] Triglyceride [Mass/Vol] 340 mg/dL High 0-150 [facility] Comment on above: Result Comment: Trig lyceride Reference Interval: Less than 150 Normal 150-199 Borderline high risk 200-499 High risk 500 or higher Very high risk Performed By: #### A BRENDON, CBC, A1C, 832704, LIPID, CMP, [id number], TSHR, MG, GFR, VIDH, FERR, ADIFF, FES ####[place] [address]#### B12 ####[address] [address] MGon 03-04-2025 Magnesium [Mass/Vol] 2.1 mg/dL Normal 1.8-2.4 [facility] Comment on above: Performed By: #### A BRENDON, CBC, A1C, 070225, LIPID, CMP, [id number], TSHR, MG, GFR, VIDH, FERR, ADIFF, FES ####[place] [address]#### B12 ####[address] [address] TSHRon 03-04-2025 TSH Qn 1.54 m[IU]/L Normal 0.36-3.74 [facility] Comment on above: Performed By: #### A BRENDON, CBC, A1C, 147564, LIPID, CMP, [id number], TSHR, MG, GFR, VIDH, FERR, ADIFF, FES ####[facility] [place], [place] [address]#### B12 ####[place] [address] VIDHon 03-04-2025 Vit. D 25-Hydroxy 22.4 ng/mL Normal [facility] Comment on above: Result Comment: Inte rpretive Values Based on Total 25(OH) Vitamin D: Deficient <20 ng/mL Insufficient 20 - <30 ng/mL Sufficient 30-100 ng/mL Performed By: #### A BRENDON, CBC, A1C, 746940, LIPID, CMP, [id number], TSHR, MG, GFR, VIDH, FERR, ADIFF, FES ####[facility] [place], [place] [address]#### B12 ####[place] [address] ED MED ADMINISTRATION DETAIL on 02-01-2025 ED MED ADMINISTRATION DETAIL [employer] Medication Administration Record [address] [address] [id number] 01/29/2025 Patient: KARLIE GOVEA Sex: Female : 1975 Age: 50y MEASUREMENTS: Wt: 99.8 kg, Ht/Moncho: 69.0 in, BMI: 32.49 ALLERGIES: No known drug allergies Medication Ordered Medication Administration Date/Time CefTRIAXone 10:01/29 CefTRIAXone (Rocephin) IM 1 g given. Given in the Given (Rocephin) IM 1 g right gluteus phyllis. Allergies verified and confirmed 5 rights. 10:44 01/29/2025 (NOW , January Information reviewed with patient including reason for taking this Ellyn Vanegas R.N. Reconstitute 1% medication. - 10:45 Ellyn Vanegas R.N. Scanned Lidocaine) Insulin Regular 10:42 01/29 Insulin Regular Human Sub cut 7 unit given. Given in Given Human Sub cut 7 the right abdomen. Allergies verified and confirmed 5 rights. 10:42 01/29/2025 unit (NOW x1, HIGH Information reviewed with patient including reason for taking this Ellyn Vanegas R.N. ALERT medication. Medication Wastage: 993 unit wasted. - 10:43 Ellyn Scanned MEDICATION) Caitlin Vanegas 10:42 01/29 Medication Co-sign: Verified dosage, concentration and rate. - 10:43 Rosaura Palmer R.N. 1 of 1 Normal [facility] ED NURSES CLINICAL NOTEon ED NURSES CLINICAL NOTE Nurse Narrative Nurse Clinical Narrative [address] [address] [id number] 01/29/2025 08:35:00 Patient: KARLIE GOVEA Sex: Female : 1975 Age: 50y Disposition: Discharge to Home Disposition Decision Time: 10:47 01/29/2025 Departure Time: 11:03 01/29/2025 TRIAGE Arrived by private vehicle. Historian: (patient). Accompanied by friend. Patient has a primary care physician. Primary physician (none). Triage time: 08:39 01/29/2025. Acuity: LEVEL 3. Chief Complaint: CHEST PAIN and (sinus congestion, earache, cough). Onset. (3 weeks ago). SEPSIS SCREEN: NEGATIVE. SIRS criteria negative: heart rate greater than 90. No possible sources of infection. -- 08:49 01/29/25 EDT Ellyn Vanegas R.N. 08:49 01/29/25. BP: 158/91 MAP: 113. HR: 91. RR: 18. O2 saturation: 96% Temperature: 98.1 F. Pain level now 8/10. -- 08:49 01/29/25 EDT Ellyn Vanegas R.N. Measurements: 08:43 01/29/25 Wt: 99.8 kg, Ht/Moncho: 69.0 in, BMI: 32.49 -- 08:43 01/29/25 ANDREAT Ellyn Vanegas R.N. Medications: sertraline 100 mg tablet: 1 tablet once a day . -- 08:41 01/29/25 JO ANN Vanegas R.N. metformin 1,000 mg tablet: 1 tablet once a day . -- 08:41 01/29/25 ANDREAT Ellyn Vanegas R.N. 1 of 4 Nurse Narrative glipizide ER 10 mg tablet, extended release 24 hr: 1 tablet once a day . -- 08:41 01/29/25 ANDREAT Ellyn Vanegas R.N. gabapentin 800 mg tablet: 1 tablet three times a day . -- 08:41 01/29/25 ANDREAT Ellyn Vanegas R.N. aripiprazole 15 mg tablet: 1 tablet every night at bedtime . -- 08:41 01/29/25 JO ANN Vanegas R.N. 08:39 01/29/25. Preferred Pharmacy: [facility]. -- 08:49 01/29/25 JO ANN Vanegas R.N. Allergies: no known drug allergies -- 08:40 01/29/25 ANDREAT Ellyn Vanegas R.N. Problems: Cancer. Breast -- 08:41 01/29/25 JO ANN Vanegas R.N. Diabetes Mellitus -- 08:41 01/29/25 ANDREAT Ellyn Vanegas R.N. COPD - Chronic Obstructive Pulmonary Disease -- 08:41 01/29/25 JO ANN Vanegas R.N. Bipolar Disorder -- 08:41 01/29/25 JO ANN Vanegas R.N. Surgeries: Massectomy. Bilateral -- 08:41 01/29/25 JO ANN Vanegas R.N. Gallbladder Surgery -- 08:41 01/29/25 JO ANN Vanegas R.N. . x2 -- 08:41 01/29/25 JO ANN Vanegas R.N. History 08:39 01/29/25. SOCIAL HX: Heavy tobacco smoker (cigarette)- 1 pack per day. No alcohol use or drug use. The patient has not traveled outside the [place] Infectious disease exposure: No infectious disease exposure. ABUSE ASSESSMENT: The patient answered yes to the question(s) Do you feel safe in your home? and no to the question(s) Are you afraid to go home?. SELF HARM ASSESSMENT: Self harm assessment was performed. The patient answered no to the question(s) Have you recently felt down, depressed, or hopeless? and Do you have thoughts of harming or killing yourself?. 2 of 4 Nurse Narrative FALL RISK ASSESSMENT: Fall risk assessment completed. No risk factors identified. -- 08:49 01/29/25 JO ANN Vanegas R.N. Interventions 08:39 01/29/25. Advanced care plan discussed with patient. Patient does not have advanced directive. -- 08:49 01/29/25 JO ANN Vanegas R.N. PHYSICAL ASSESSMENT 09:28 01/29/25. Ambulatory to room. GENERAL / NEURO / PSYCH: Alert. Oriented X 4. Appears in pain. ( Pt has right ear pain, she has congestion, and a cough. She states she has been dealing with this for 2 weeks). RESPIRATORY: Respirations not labored. Chest wall tenderness (Pt has burning in her chest with coughing.). Inspiratory wheezes present. CVS: Normal sinus rhythm noted. Heart sounds within normal limits. Pulses within normal limits. Capillary refill less than 2 seconds. SKIN: Skin is warm and dry. -- 09:38 01/29/25 JO ANN Vanegas R.N. NURSING PROGRESS NOTES 09:30 01/29/25. Checked patient name: patient confirmed. Blood samples drawn from the left antecubital space with 20g by me per protocol ; labeled in presence of the patient and sent to lab: green, purple and blue top; cardiac enzymes (1st set). (unable to flush IV. Labs sent). -- 09:40 01/29/25 JO ANN Vanegas R.N. 10:42 01/29/25. Insulin Regular Human Sub cut 7 unit given. Given in the right abdomen. Allergies verified and confirmed 5 rights. Information reviewed with patient including reason for taking this medication. Medication Wastage: 993 unit wasted. -- 10:43 01/29/25 JO ANN Vanegas R.N. 10:42 01/29/25. Insulin Regular Human Sub cut: Medication Co-sign. Verified dosage, concentration and rate. -- 10:43 01/29/25 EDT Rosaura Palmer R.N. 10:44 01/29/25. CefTRIAXone (Rocephin) IM 1 g given. Given in the right gluteus phyllis. Allergies verified and confirmed 5 rights. Information reviewed with patient including reason for taking this medication. -- 10:45 01/29/25 EDT Ellyn Vanegas R.N. DISPOSITIO (more content not included)... Normal [facility] ED ORDER SHEET ([facility] ONLY)on 02-01-2025 ED ORDER SHEET (CPOE ONLY) Order Sheet Order Sheet [address] [place] [address] [id number] 01/29/2025 Patient: KARLIE GOVEA Sex: Female : 1975 Age: 50y MEASUREMENTS: Wt: 99.8 kg, Ht/Moncho: 69.0 in, BMI: 32.49 ALLERGIES: No known drug allergies MEDICATION/IV/DRIP/FL UID ORDERS Order Description Priority Entered Acknowledged Completed Insulin Regular Human IVP5 10:20 01/29/2025 Cancelled: Other unit (NOW x1, HIGH ALERT Jericho Hernandez, 10:24 EDT Jericho Hernandez, MEDICATION) D.O. D.O. cefTRIAXone (Rocephin) IVPB 10:20 01/29/2025 Cancelled: Other 1gm/50ml NS1 g diluted in Jericho Hernandez, 10:25 EDT Jericho Hernandez, sodium chloride IVPB 0.9 % D.O. D.O. Minibag+ 50 mL at 100 mL/hr (NOW x1) CefTRIAXone (Rocephin) IM1 g 10:28 01/29/2025 10:42 10:45 (NOW x1, May Reconstitute 1% Jericho Hernandez, 01/29/2025 01/29/2025 Lidocaine) D.O. Ellyn Duong R.N. RMellyN. Insulin Regular Human Sub 10:28 01/29/2025 10:42 10:43 cut7 unit (NOW x1, HIGH ALERT Jericho Hernandez, 01/29/2025 01/29/2025 MEDICATION) Ellyn Kowalski R.NMelly RSierra 1 of 3 Order Sheet LAB ORDERS Order Description Priority Entered Acknowledged Collected Completed CBC w Diff Stat Stat 08:38 01/29/2025 08:51 01/29/2025 09:33 01/29/2025 Ellyn Molina Natalie Yoder, D.O. R.N. R.NMelly CMP Stat Stat 08:38 01/29/2025 08:51 01/29/2025 09:33 01/29/2025 Ellyn Molina Natalie Yoder, D.O. R.N. R.NMelly EKG - ED Stat Stat 08:38 01/29/2025 08:51 01/29/2025 08:53 01/29/2025 Ellyn Molina Natalie Yoder, D.O. R.N. RMellyNMelly Troponin-I Protocol Stat 08:38 01/29/2025 08:51 01/29/2025 09:33 01/29/2025 (STAT 1hr) (Sched: q1h Ellyn Molina, Ellyn Vanegas, X2); Stat 1 of 2 D.Nico Huber.N. R.NMelly Troponin-I Protocol Stat 08:38 01/29/2025 10:31 01/29/2025 (STAT 1hr) (Sched: q1h Ellyn Molina, X2); Stat 2 of 2 D.O. R.NMelly DIAGNOSTIC STUDY ORDERS Order Description Priority Entered Acknowledged Completed CT Sinuses wo Cont Stat Stat 10:12 01/29/2025 10:27 10:27 Jericho Hernandez, 01/29/2025 01/29/2025 Ellyn Kowalski R.N. R.NMelly Order Comments: 10:12 01/29/2025: Status: Not . Jericho Hernandez D.O. Reason for Study: Infection CT Sella wo Cont Stat Stat 10:29 01/29/2025 Cancelled: Other Jericho Hernandez, 15:15 EDT Jericho Hernandez, 2 of 3 Order Sheet D.Nico Gregg Reason for Study: Follow up Prev Scan STAFF ORDERS Order Description Priority Entered Acknowledged Collected Completed IV Saline Lock 08:38 01/29/2025 08:51 01/29/2025 09:33 01/29/2025 Ellyn Molina Natalie Yoder, D.O. R.NMelly RMellyNMelly [employer] 08:38 01/29/2025 08:51 01/29/2025 09:33 01/29/2025 Ellyn Molina Natalie Yoder, D.O. R.NMelly R.NMelly Oxygen titrate to 92% 08:38 01/29/2025 09:33 01/29/2025 Ellyn Molina D.O. RMellyNMelly Pulse Oximeter 08:38 01/29/2025 09:33 01/29/2025 Ellyn Molina D.O. RSierra [Electronically signed by Jericho Hernandez D.O. (02/01/2025 00:50 EDT)] 3 of 3 Normal [facility] ED PHYSICIAN CLINICAL REPORT on 02-01-2025 ED PHYSICIAN CLINICAL REPORT Narrative Physician Clinical Narrative [address] [address] [id number] 01/29/2025 08:35:00 Patient: KARLIE GOVEA Sex: Female : 1975 Age: 50y Disposition: Discharge to Home Disposition Decision Time: 10:47 01/29/2025 Departure Time: 11:03 01/29/2025 Measurements Wt: 99.8 kg, Ht/Moncho: 69.0 in, BMI: 32.49 Initial Vital Sign Measured Time BP MAP HR RR O2Sat ETCO2 Temp Pain GCS RTS 08:45 01/29/2025 136/116 122 100 Time Seen: 08:27 01/29/2025. Arrived- By private vehicle. Historian- patient. Independent historian- family. HISTORY OF PRESENT ILLNESS Chief Complaint: ear pain. This started 2 weeks; Patient came in complaining of ear pain. She said she has had an earache for about 2 weeks she has been on antibiotics but she still has a earache she has a history of diabetes which she is not taking her medications our medications can she states she is out of them. And she presents to the emergency department. No nausea or difficulty breathing. REVIEW OF SYSTEMS GI: No abdominal pain. THROAT: No sore throat. NEUROLOGICAL: No fainting episodes. CONSTITUTIONAL: No fever. Status: Not . 1 of 9 Narrative PAST HISTORY See nurses notes. Bipolar Disorder Cancer: (Breast) COPD - Chronic Obstructive Pulmonary Disease Diabetes Mellitus Surgeries: : (x2) Gallbladder Surgery Massectomy: Body Site Bilateral Medications: aripiprazole 15 mg tablet: 1 tablet every night at bedtime . gabapentin 800 mg tablet: 1 tablet three times a day . glipizide ER 10 mg tablet, extended release 24 hr: 1 tablet once a day . metformin 1,000 mg tablet: 1 tablet once a day . sertraline 100 mg tablet: 1 tablet once a day . Allergies: no known drug allergies SOCIAL HISTORY Current every day smoker. No alcohol use. ADDITIONAL NOTES The nursing notes have been reviewed. PHYSICAL EXAM Appearance: Alert. Oriented X3. No acute distress. Eyes: Pupils equal, round and reactive to light. Eyes normal inspection. ENT: Abnormal ear exam. Right Ear: there is TM dullness, loss of landmarks and moderate TM erythema. No bulging of the right TM. Nose normal. 2 of 9 Narrative Neck: Normal inspection. Neck supple. CVS: Normal heart rate and rhythm. Heart sounds normal. Respiratory: No respiratory distress. Breath sounds normal. Abdomen: Soft and nontender. Skin: Skin warm and dry. Normal skin color. Normal skin turgor. Extremities: Extremities exhibit normal ROM. No lower extremity edema. Neuro: Oriented X 3. No motor deficit. LABS, X-RAYS, AND EKG 12-LEAD EKG: EKG time: 08:38 01/29/2025. No acute process. Normal EKG. Normal sinus rhythm. Rate: 98. The study has been interpreted contemporaneously by me. Interpretation time: 08:43 01/29/2025. Laboratory Tests: CBC + DIFF Final NERY: 01/29/2025 10:04:00 EDT MsgRcvd: 01/29/2025 10:14 EDT Lab Test Result Reference Status Received Comments 01/29/2025 10:14 CBC-COMPLETE CBC + DIFF Final EDT BLOOD COUNT 01/29/2025 10:14 WBC 7.6 x 10/UL 4.5 - 10.8 Final EDT 01/29/2025 10:14 RBC 4.63 x 10/UL 4.10 - 5.30 Final EDT 01/29/2025 10:14 HEMOGLOBIN 14.5 g/dl 12.0 - 16.0 Final EDT 01/29/2025 10:14 HEMATOCRIT 42.0 % 34.0 - 46.0 Final EDT 01/29/2025 10:14 MCV 91 fl 80 - 99 Final EDT 3 of 9 Narrative Lab Test Result Reference Status Received Comments 01/29/2025 10:14 MCH 31 pg 27 - 33 Final EDT 01/29/2025 10:14 MCHC 35 X10 3 32 - 36 Final EDT 01/29/2025 10:14 RDW/CV 13.4 % 12.0 - 15.6 Final EDT 01/29/2025 10:14 PLATELET 208 x10/UL 150 - 450 Final EDT 01/29/2025 10:14 AUTOMATED MPV 9.1 fl 6.6 - 10.5 Final EDT DIFFERENTIAL 01/29/2025 10:14 NEUT % 68.5 % 46.0 - 76.0 Final EDT 01/29/2025 10:14 LYMPH % 21.4 % 20.0 - 45.0 Final EDT 01/29/2025 10:14 MONOS % 8.6 % 0.0 - 10.0 Final EDT 01/29/2025 10:14 EO % 1.2 % 0.0 - 7.0 Final EDT 01/29/2025 10:14 BASO % 0.3 % 0.0 - 2.0 Final EDT 01/29/2025 10:14 Lymph # 1.62 x10/UL 0.80 - 2.80 Final EDT 01/29/2025 10:14 Neut # 5.20 x10/UL 1.50 - 7.10 Final EDT 01/29/2025 10:14 Reeves # 0.65 x10/UL 0.20 - 1.00 Final EDT 4 of 9 Narrative Lab Test Result Reference Status Received Comments 01/29/2025 10:14 EO # 0.09 x10/UL 0.00 - 0.50 Final EDT 01/29/2025 10:14 Baso # 0.02 x10/UL 0.00 - 0.10 Final EDT 01/29/2025 10:14 MANUAL DIFF N/A New Order EDT 01/29/2025 10:14 MORPHOLOGY N/A New Order EDT CMP with eGFR Final NERY: 01/29/2025 09:20:00 EDT MsgRcvd: 01/29/2025 10:07 EDT Lab Test Result Reference Status Received Comments COMPREHENSIVE 01/29/2025 CMP with eGFR Final METABOLIC 10:07 EDT PANEL 133 mmol/l 01/29/2025 SODIUM 136 - 145 Final Be (more content not included)... Normal [facility] ED SUPER BILLon 02-01-2025 ED SUPER BILL [address] [address] [id number] 01/29/2025 Patient: KARLIE GOVEA Sex: Female : 1975 Age: 50y Item Facility Professional Category Description Code Code Quantity Fee Total Nurse/E/M EMERGENCY 170056 1 $0.00 $0.00 DEPARTMENT VISIT HIGH/URGENT SEVERITY (63360-71) Nurse/IV/IM/Infusions IM/SQ (84227) [id number] 1 $0.00 $0.00 Grand Total $0.00 Providers Jericho Hernandez D.O. Chief Complaint ear pain. Principal Diagnosis Recurrent right otitis media. Depression. Poorly controlled type 2 diabetes with hyperglycemia. 1 of 2 [facility] ICD-10 Codes H66.91: Otitis media, unspecified, right ear F32.9: Major depressive disorder, single episode, unspecified 2 of 2 Normal [facility] ED VISIT SUMMARYon ED VISIT SUMMARY Visit Overview Visit Overview [address] [address] [id number] 01/29/2025 Patient: KARLIE GOVEA Sex: Female : 1975 Age: 50y 02/01/2025 12:50 AM EDT ED Arrival:08:35 01/29/2025 EDT Status:not Recent Travel:no Language:eng Adv Directive:No Isolation Status: Ethnicity:N Fall Risk:no risk Infectious Disease Exposure:no Measurements:5'9 / 175.3 Self-Harm Status:risk Sepsis Screen:negative cm 220.0 lb / 99.8 kg Chief Complaint:CHEST PAIN, (3 weeks ago), (none), and (sinus congestion, earache, cough) ALLERGIES No Known Drug Allergies HOME MEDICATIONS aripiprazole 15 mg tablet: 1 tablet every night at bedtime . gabapentin 800 mg tablet: 1 tablet three times a day . glipizide ER 10 mg tablet, extended release 24 hr: 1 tablet once a day . metformin 1,000 mg tablet: 1 tablet once a day . sertraline 100 mg tablet: 1 tablet once a day . 3 Visit Overview PAST MEDICAL HISTORY / PROBLEMS Bipolar Disorder Cancer. Breast COPD - Chronic Obstructive Pulmonary Disease Diabetes Mellitus See nurses notes PAST SURGICAL HISTORY . x2 Gallbladder Surgery Massectomy. Bilateral SOCIAL HISTORY Smoking status: Yes Alcohol use: No Drug use: No ED COURSE MEDICATIONS GIVEN IN EMERGENCY DEPARTMENT 10:42 01/29/25 Insulin Regular Human Sub cut 7 unit 10:44 01/29/25 CefTRIAXone (Rocephin) IM 1 g IV SITE INFORMATION INTAKE OUTPUT REASSESMENT (most recent) 09:28 01/29/25. Ambulatory to room. GENERAL / NEURO / PSYCH: Alert. Oriented X 4. Appears in pain. ( Pt has right ear pain, she has congestion, and a cough. She states she has been dealing with this for 2 weeks). RESPIRATORY: Respirations not labored. Chest wall tenderness (Pt has burning in her chest with coughing.). Inspiratory wheezes present. CVS: Normal sinus rhythm noted. Heart sounds within normal limits. Pulses within normal limits. Capillary refill less than 2 seconds. SKIN: Skin is warm and dry. 3 Visit Overview VITAL SIGNS First Vitals Last Vitals Temp 08:45 01/29/25 Temp 10:13 01/29/25 BP 08:45 01/29/25 136/116 BP 10:13 01/29/25 HR 08:45 01/29/25 100 HR 10:13 01/29/25 96 RR 08:45 01/29/25 RR 10:13 01/29/25 O2 Sat 08:45 01/29/25 O2 Sat 10:13 01/29/25 97% Pain 08:45 01/29/25 Pain 10:13 01/29/25 ETCO2 08:45 01/29/25 ETCO2 10:13 01/29/25 GCS 08:45 01/29/25 GCS 10:13 01/29/25 RTS 08:45 01/29/25 RTS 10:13 01/29/25 PROCEDURES NURSING INTERVENTIONS LABS / STUDIES LABS / STUDIES ORDERED CBC w Diff CMP CT Sinuses wo Cont EKG - ED Troponin-I Protocol (STAT 1hr) Troponin-I Protocol (STAT 1hr) CLINICAL IMPRESSION DEPRESSION POORLY CONTROLLED TYPE 2 DIABETES WITH HYPERGLYCEMIA RECURRENT RIGHT OTITIS MEDIA 3 of 3 Normal [facility] ED VITALS FLOW SHEETon 02-01 ED VITALS FLOW SHEET Vitals Vital Sign Flow Sheet [facility] [address] [place] [address] [id number] 01/29/2025 Patient: KARLIE GOVEA Sex: Female : 1975 Age: 50y Measurements Wt: 99.8 kg, Ht/Moncho: 69.0 in, BMI: 32.49 Measured Time BP MAP HR RR O2Sat ETCO2 Temp Pain GCS RTS 10:13 01/29/2025 96 97% 10:08 01/29/2025 136/78 84 84 10:08 01/29/2025 92 96% 10:05 01/29/2025 112/64 80 84 10:03 01/29/2025 100 95% 09:58 01/29/2025 92 96% 09:53 01/29/2025 93 96% 09:48 01/29/2025 134/84 95 92 09:48 01/29/2025 102 95% 09:46 01/29/2025 137/83 101 90 09:28 01/29/2025 89 95% 09:23 01/29/2025 93 94% 09:18 01/29/2025 90 94% 09:08 01/29/2025 95 94% 09:03 01/29/2025 99 96% 1 of 2 Vitals Measured Time BP MAP HR RR O2Sat ETCO2 Temp Pain GCS RTS 08:58 01/29/2025 89 94% 08:53 01/29/2025 94 94% 08:49 01/29/2025 158/91 113 91 18 96% 98.1 F 8 08:48 01/29/2025 146/87 108 92 08:48 01/29/2025 95 96% 08:45 01/29/2025 136/116 122 100 2 of 2 Normal [facility] CBC + DIFFon 01-29-2025 Baso # 0.02 x10EE3/UL Normal 0.00 - 0.10 [facility] Comment on above: Performed By: #### 2 13029 ####[facility],[address] [place] [address] Basophils/100 WBC (Bld) 0.3 % Normal 0.0 - 2.0 [facility] Comment on above: Performed By: #### 2 04140 ####[facility],[address] [place] [address] CBC + DIFF Normal [facility] Comment on above: Result Comment: CBC- COMPLETE BLOOD COUNT Performed By: #### 2 89099 ####[facility],[address] [place] [address] EO # 0.09 x10EE3/UL Normal 0.00 - 0.50 [facility] Comment on above: Performed By: #### 2 23113 ####[facility],[address] [place] [address] Eosinophils/100 WBC (Bld) 1.2 % Normal 0.0 - 7.0 [facility] Comment on above: Performed By: #### 2 94850 ####[facility],[address] [place] [address] Erythrocyte distribution width (RBC) [Ratio] 13.4 % Normal 12.0 - 15.6 [facility] Comment on above: Performed By: #### 2 21648 ####[facility],[address] [place], [place] [phone] Hematocrit (Bld) [Volume fraction] 42.0 % Normal 34.0 - 46.0 [facility] Comment on above: Performed By: #### 2 17516 ####[facility],[address] [place] [address] Hemoglobin (Bld) [Mass/Vol] 14.5 g/dL Normal 12.0 - 16.0 [facility] Comment on above: Performed By: #### 2 73443 ####[facility],[address] [place] [address] Lymph # 1.62 x10EE3/UL Normal 0.80 - 2.80 [facility] Comment on above: Performed By: #### 2 40130 ####[place] [address] Lymphocytes/100 WBC (Bld) 21.4 % Normal 20.0 - 45.0 [facility] Comment on above: Performed By: #### 2 33115 ####[facility],[address] [place] [address] MANUAL DIFF N/A Normal [facility] Comment on above: Performed By: #### 2 23538 ####[place] [address] MCH (RBC) [Entitic mass] 31 pg Normal 27 - 33 [facility] Comment on above: Performed By: #### 2 63583 ####[place] [address] MCHC 35 X10 3 Normal 32 - 36 [facility] Comment on above: Performed By: #### 2 43471 ####[place] [phone] MCV (RBC) [Entitic vol] 91 fL Normal 80 - 99 [facility] Comment on above: Performed By: #### 2 79237 ####[place] [address] Reeves # 0.65 x10EE3/UL Normal 0.20 - 1.00 [facility] Comment on above: Performed By: #### 2 98012 ####[facility],[address] [place] [address] MONOS % 8.6 % Normal 0.0 - 10.0 [facility] Comment on above: Performed By: #### 2 55923 ####[facility],[address] [place] [address] Morphology Zeeshan (Bld) [Interp] N/A Normal [facility] Comment on above: Performed By: #### 2 13595 ####[facility],[address] [place] [address] Neut # 5.20 x10EE3/UL Normal 1.50 - 7.10 [facility] Comment on above: Performed By: #### 2 29761 ####[facility],[address] [place] [address] Neutrophils/100 WBC (Bld) 68.5 % Normal 46.0 - 76.0 [facility] Comment on above: Performed By: #### 2 38306 ####[facility],[address] [place] [address] PLATELET 208 x10EE3/UL Normal 150 - 450 [facility] Comment on above: Performed By: #### 2 53473 ####[facility],[address] [place] [address] Platelet mean volume (Bld) [Entitic vol] 9.1 fL Normal 6.6 - 10.5 [facility] Comment on above: Result Comment: AUTO MATED DIFFERENTIAL Performed By: #### 2 64868 ####[facility],[address] [place], [place] [phone] RBC 4.63 x 10EE6/UL Normal 4.10 - 5.30 [facility] Comment on above: Performed By: #### 2 26285 ####[facility],[address],[place] [address] WBC 7.6 x 10EE3/UL Normal 4.5 - 10.8 [facility] Comment on above: Performed By: #### 2 36762 ####[facility],[address] [place] [address] CMP with eGFRon 01-29-2025 AGE 50 years Normal [facility] Comment on above: Performed By: #### 2 59372 ####[facility],[address] [place] [address] Albumin [Mass/Vol] 3.7 g/dL Normal 3.4 - 5.0 [facility] Comment on above: Performed By: #### 2 54371 ####[facility],[address] [place] [address] Albumin/Globulin [Mass ratio] 0.8 {ratio} Low 0.9 - 1.6 [facility] Comment on above: Performed By: #### 2 47179 ####[facility],[address] [place] [address] ALK PHOS 141 U/L High 46 - 116 [facility] Comment on above: Performed By: #### 2 51401 ####[facility],[address] [place], [place] [phone] ALT [Catalytic activity/Vol] 38 U/L Normal 16 - 63 [facility] Comment on above: Performed By: #### 2 15822 ####[facility],[address] [place] [address] Anion gap [Moles/Vol] 15 mmol/L Normal 10 - 20 [facility] Comment on above: Performed By: #### 2 26796 ####[facility],[address] [place] [address] AST [Catalytic activity/Vol] 30 U/L Normal 13 - 39 [facility] Comment on above: Performed By: #### 2 57390 ####[facility],[address] [place] [address] B/C RATIO 9 ratio Normal 0 - 30 [facility] Comment on above: Performed By: #### 2 97418 ####[facility],[address] [place] [address] Bilirubin [Mass/Vol] 0.4 mg/dL Normal 0.2 - 1.0 [facility] Comment on above: Performed By: #### 2 53779 ####[facility],[address] [place] [address] Calcium [Mass/Vol] 9.1 mg/dL Normal 8.5 - 10.1 [facility] Comment on above: Performed By: #### 2 02436 ####[facility],[address] [place], [place] [phone] Chloride [Moles/Vol] 97 mmol/L Low 98 - 107 [facility] Comment on above: Performed By: #### 2 52635 ####[facility],[address] [place], [place] [phone] CMP with eGFR Normal [facility] Comment on above: Result Comment: COMP REHENSIVE METABOLIC PANEL Performed By: #### 2 88323 ####[facility],[address] [place] [address] CO2 [Moles/Vol] 25.2 mmol/L Normal 21.0 - 32.0 [facility] Comment on above: Performed By: #### 2 89444 ####[facility],[address] [place] [address] Creatinine [Mass/Vol] 0.90 mg/dL Normal 0.55 - 1.02 [facility] Comment on above: Performed By: #### 2 85194 ####[facility],[address] [place] [address] GFR/1.73 sq M.predicted among non-blacks MDRD (S/P/Bld) [Vol rate/Area] mL/min/{1.73_m2} Normal 60 - 999 [facility] Comment on above: Performed By: #### 2 82472 ####[facility],[address] [place] [address] 29037 Result Comment: ACCO RDING TO THE NATIONAL KIDNEY DISEASE EDUCATION PROGRAM(NKDE), A NORMAL eGFR IS A VALUE GREATER THAN OR EQUAL TO 60 ML/MIN/1.73 SQ METERS. CHRONIC KIDNEY DISEASE: <60mL/MIN/1.73 SQ METERS KIDNEY FAILURE: <15mL/MIN/1.73 SQ METERS THIS TEST SHOULD ONLY BE USED FOR PATIENTS 18 YEARS OF AGE AND OLDER. Globulin (S) [Mass/Vol] 4.5 g/dL High 1.5 - 3.8 [facility] Comment on above: Performed By: #### 2 88393 ####[facility],[address] [place] [address] 23487 Glucose [Mass/Vol] 430 mg/dL High 74 - 106 [facility] Comment on above: Performed By: #### 2 77811 ####[facility],[address] [place] [address] 57197 Potassium [Moles/Vol] 3.7 mmol/L Normal 3.5 - 5.1 [facility] Comment on above: Performed By: #### 2 15807 ####[facility],[address] [place] [address]3955 Protein [Mass/Vol] 8.2 g/dL Normal 6.4 - 8.2 [facility] Comment on above: Performed By: #### 2 59216 ####[facility],[address] [place] [address] 90161 Sodium [Moles/Vol] 133 mmol/L Low 136 - 145 [facility] Comment on above: Performed By: #### 2 71521 ####[facility],[address] [place] [address] 93290 Urea nitrogen [Mass/Vol] 8 mg/dL Normal 7 - 18 [facility] Comment on above: Performed By: #### 2 91728 ####[facility],[address] [place] [address] 00831 TROPONINon 01-29-2025 HS TROPONIN <4.0 Normal 0.0 - 51.4 [facility] Comment on above: Performed By: #### 2 41403 ####[facility],[address] [place], [place] [phone] LABORATORYOrdered By: Osmel Maher on 01-16-2025 Appearance (U) Slightly Cloudy *ABN* (01/16/25 12:31 AM) Invalid Interpretation Code Clear AO Auto Urine SS Bacteria LM.HPF (Urine sed) [#/Area] Trace /HPF Invalid Interpretation Code Negative AO Auto Urine SS Bilirubin Ql (U) Negative (01/16/25 12:31 AM) Normal Negative AO Auto Urine SS Color (U) Yellow (01/16/25 12:31 AM) Normal AO Auto Urine SS Glucose Test strip (U) [Mass/Vol] >=1000 mg/dL Invalid Interpretation Code Negative AO Auto Urine SS Hemoglobin Auto test strip (U) [Mass/Vol] Negative (01/16/25 12:31 AM) Normal Negative AO Auto Urine SS Ketones Ql (U) Trace mg/dL Invalid Interpretation Code Negative AO Auto Urine SS UA Leuk Est Small *ABN* (01/16/25 12:31 AM) Invalid Interpretation Code Negative AO Auto Urine SS UA Nitrite Negative (01/16/25 12:31 AM) Normal Negative AO Auto Urine SS UA pH 6.0 (01/16/25 12:31 AM) Normal 5.0 - 8.0 AO Auto Urine SS UA Protein Trace mg/dL Normal Negative AO Auto Urine SS UA RBC Rare /HPF Normal 0-2 AO Auto Urine SS UA Spec Grav <=1.005 *ABN* (01/16/25 12:31 AM) Invalid Interpretation Code 1.015-1.025 AO Auto Urine SS UA Specimen Type Clean Catch (01/16/25 12:31 AM) Normal AO Auto Urine SS UA Squam Epithelial Rare /HPF Normal 0-20 AO Au to Urine SS UA Urobilinogen 0.2 E.U./dL Normal 0.2-1.0 AO Auto Urine SS WBC LM.HPF (Urine sed) [#/Area] 3-5 /HPF Normal 0-5 AO Auto Urine SS LABORATORYOrdered By: SYSTEM SYSTEM on 01-16-2025 Troponin I.cardiac DL <= 0.01 ng/mL [Mass/Vol] 6 ng/L Normal 0 - 51 ng/L AO ADM SS Comment on above: Interpretive Data: H igh Sensitive Troponin I Reference Ranges: Female: 0-51 ng/L Male: 0-76 ng/L Testing performed on Dimension EXL using a homogeneous sandwich chemiluminescent immunoassay based on [employer] technology. [facility] High Sensitivity Troponin I 6 ng/L Normal 0-51 [facility] Comment on above: Result Comment: High Sensitive Troponin I Reference Ranges: Female: 0-51 ng/L Male: 0-76 ng/L Testing performed on Dimension EXL using a homogeneous sandwich chemiluminescent immunoassay based on [employer] technology. Performed By: #### T ABBEHS ####[address] [place] [address] UAon 01-16-2025 Color (U) Yellow Normal [facility] Comment on above: Performed By: #### U A, UAMIC ####[address] [place] [address] Glucose (U) [Mass/Vol] mg/dL Abnormal Negative [facility] Comment on above: Performed By: #### U A, UAMIC ####[address] [place] [address] Ketones Ql (U) Trace Abnormal Negative [facility] Comment on above: Performed By: #### U A, UAMIC ####[address] [place], [place] [address] UA Appear Slightly Cloudy Abnormal Clear [facility] Comment on above: Performed By: #### U A, UAMIC ####[address] [place], [place] [address] UA Blood Negative Normal Negative [facility] Comment on above: Performed By: #### U A, UAMIC ####[address] [place], [place] [address] UA Leuk Est Small Abnormal Negative [facility] Comment on above: Performed By: #### U A, UAMIC ####[address] [place], [place] [address] UA Nitrite Negative Normal Negative [facility] Comment on above: Performed By: #### U A, UAMIC ####[address] [place] [place], [place] [address] UA pH 6.0 Normal 5.0 - 8.0 [facility] Comment on above: Performed By: #### U A, UAMIC ####[address] [place] [address] UA Protein Trace Normal Negative [facility] Comment on above: Performed By: #### U A, UAMIC ####[address] [place] [address] UA Spec Grav <=1.005 Abnormal 1.015-1.025 [facility] Comment on above: Performed By: #### U A, UAMIC ####[address] [place] [address] UA Specimen Type Clean Catch Normal [facility] Comment on above: Performed By: #### U A, UAMIC ####[address] [place], [place] [address] UA Urobilinogen 0.2 E.U./dL Normal 0.2-1.0 [facility] Comment on above: Performed By: #### U A, UAMIC ####[address] [place] [place] [address] Urobilinogen (U) [Mass/Vol] Negative Normal Negative [facility] Comment on above: Performed By: #### U A, UAMIC ####[address] [place], [place] [address] UAMICon 01-16-2025 UA Bacteria Trace Abnormal Negative [facility] Comment on above: Performed By: #### U A, UAMIC ####[address] [place] [address] UA RBC Rare Normal 0-2 [facility] Comment on above: Performed By: #### U A, UAMIC ####[address] [place] [address] UA Squam Epithelial Rare Normal 0-20 [facility] Comment on above: Performed By: #### U Mickey UAMIC ####[address] [place], [place] [address] UA WBC 3-5 Normal 0-5 [facility] Comment on above: Performed By: #### U A UAMIC ####[address] [place], [place] [address] .Auto Diffon 01-15-2025 Basophil, Absolute 0.1 10 3/mcL Normal 0.0-0.3 [facility] Comment on above: Performed By: #### T AGUILAR, CBC, MDW, BMP, ADIFF, GFR, ANEU ####[address] [place], [place] [address] Basophils/100 WBC (Bld) 0.8 % Normal 0.0-2.5 [facility] Comment on above: Performed By: #### T AGUILAR, CBC, MDW, BMP, ADIFF, GFR, ANEU ####[address] [place], [place] [address] Eosinophil, Absolute 0.6 10 3/mcL Normal 0.0-0.7 [facility] Comment on above: Performed By: #### T AGUILAR, CBC, MDW, BMP, ADIFF, GFR, ANEU ####[address] [place], [place] [address] Eosinophils/100 WBC (Bld) 5.4 % Normal 0.0-6.0 [facility] Comment on above: Performed By: #### T AGUILAR, CBC, MDW, BMP, ADIFF, GFR, ANEU ####[address] [place], [place] [address] Lymphocyte, Absolute 3.6 10 3/mcL Normal 0.9-4.3 [facility] Comment on above: Performed By: #### T ABBEHS, CBC, MDW, BMP, ADIFF, GFR, ANEU ####[address] [place], [place] [address] Lymphocytes/100 WBC (Bld) 34.1 % Normal 20.0-40.0 [facility] Comment on above: Performed By: #### T AGUILAR, CBC, MDW, BMP, ADIFF, GFR, ANEU ####[address] [place], [place] [address] Monocyte, Absolute 0.8 10 3/mcL Normal 0.1-1.4 [facility] Comment on above: Performed By: #### T AGUILAR, CBC, MDW, BMP, ADIFF, GFR, ANEU ####[address] [place], [place] [address] Monocytes/100 WBC (Bld) 7.2 % Normal 2.0-13.0 [facility] Comment on above: Performed By: #### T AGUILAR, CBC, MDW, BMP, ADIFF, GFR, ANEU ####[address] [place] [place], [place] [address] Neutrophils/100 WBC (Bld) 52.5 % Normal 50.0-75.0 [facility] Comment on above: Performed By: #### T AGUILAR, CBC, MDW, BMP, ADIFF, GFR, ANEU ####[address] [place], [place] [address] .GFRon 01-15-2025 Estimated Glomerular Filtration Rate 85 ml/min/1.73sqm Normal [facility] Comment on above: Result Comment: Stages of Chronic Kidney Disease (CKD) Stage Description eGFR(ml/min/1.73 sq.m.) CKD 1 Normal kidney function or >=90 normal kindney function with possible kidney damage (ex. Proteinuria) CKD 2 Kidney damage with mild loss 60-89 of kidney function CKD 3a Mild to moderate loss of kidney 45-59 function CKD 3b Moderate to severe loss of 30-44 of kindey function CKD 4 Severe loss of kidney function 15-29 CKD 5 Kidney failure <15 Note: (go live 2024) the eGFR calculation was updated to the 2020 CKD-EPI creatinine equation without a race factor to calculate the eGFR results. Performed By: #### T ABBEHS, CBC, MDW, BMP, ADIFF, GFR, ANEU ####[address] [place], [place] [address] .MDWon 01-15-2025 Monocyte Distribution Width 17.99 Normal 0.00-20.00 [facility] Comment on above: Result Comment: For ED adult patients suspected of sepsis, MDW<=20.0 does not rule out sepsis or risk of sepsis Performed By: #### T AGUILAR, CBC, MDW, BMP, ADIFF, GFR, ANEU ####[facility] [place], [place] [address] .NEUABSon 01-15-2025 Neutrophil, Absolute 5.6 10 3/mcL Normal 2.3-8.1 [facility] Comment on above: Performed By: #### T AGUILAR, CBC, MDW, BMP, ADIFF, GFR, ANEU ####[place] [address] [place], [place] [address] BMPon 01-15-2025 Calcium [Mass/Vol] 9.2 mg/dL Normal 8.4-10.2 [facility] Comment on above: Performed By: #### T AGUILAR, CBC, MDW, BMP, ADIFF, GFR, ANEU ####[place] [address] [place] [address] BUN/Creatinine Ratio 18 ratio Normal 7-27 [facility] Comment on above: Performed By: #### T AGUILAR, CBC, MDW, BMP, ADIFF, GFR, ANEU ####[place] [address] [place], [place] [address] Chloride [Moles/Vol] 98 mmol/L Normal 98-107 [facility] Comment on above: Performed By: #### T AGUILAR, CBC, MDW, BMP, ADIFF, GFR, ANEU ####[place] [address] [place], [place] [address] CO2 [Moles/Vol] 25 mmol/L Normal 22-29 [facility] Comment on above: Performed By: #### T AGUILAR, CBC, MDW, BMP, ADIFF, GFR, ANEU ####[place] [address] [place] [phone] Creatinine [Mass/Vol] 0.83 mg/dL Normal 0.51-0.95 [facility] Comment on above: Performed By: #### T AGUILAR, CBC, MDW, BMP, ADIFF, GFR, ANEU ####[address] [place] [place], [place] [address] Electrolyte Balance 4.0 mEq/L Normal 4.0-15.0 [facility] Comment on above: Performed By: #### T AGUILAR, CBC, MDW, BMP, ADIFF, GFR, ANEU ####[address] [place] [place], [place] [address] Glucose [Mass/Vol] 350 mg/dL High 70-105 [facility] Comment on above: Performed By: #### T AGUILAR, CBC, MDW, BMP, ADIFF, GFR, ANEU ####[address] [place] [place], [place] [address] Potassium [Moles/Vol] 3.2 mmol/L Low 3.5-5.1 [facility] Comment on above: Performed By: #### T AGUILAR, CBC, MDW, BMP, ADIFF, GFR, ANEU ####[address] [place] [place], [place] [address] Sodium [Moles/Vol] 127 mmol/L Low 136-145 [facility] Comment on above: Performed By: #### T AGUILAR, CBC, MDW, BMP, ADIFF, GFR, ANEU ####[address] [place] [place], [place] [address] Urea nitrogen [Mass/Vol] 15 mg/dL Normal 7-18 [facility] Comment on above: Performed By: #### T AGUILAR, CBC, MDW, BMP, ADIFF, GFR, ANEU ####[address] [place], [place] [address] CBCon 01-15-2025 Erythrocyte distribution width (RBC) [Ratio] 13.2 % Normal 11.5-15.5 [facility] Comment on above: Performed By: #### T AGUILAR, CBC, MDW, BMP, ADIFF, GFR, ANEU ####[address] [place], [place] [address] Hematocrit (Bld) [Volume fraction] 39.8 % Normal 34.0-46.0 [facility] Comment on above: Performed By: #### T AGUILAR, CBC, MDW, BMP, ADIFF, GFR, ANEU ####[address] [place], [place] [address] Hgb 13.6 G/dL Normal 12.0-16.0 [facility] Comment on above: Performed By: #### T AGUILAR, CBC, MDW, BMP, ADIFF, GFR, ANEU ####[address] [place], [place] [address] MCH (RBC) [Entitic mass] 31.0 pg Normal 27.0-33.0 [facility] Comment on above: Performed By: #### T AGUILAR, CBC, MDW, BMP, ADIFF, GFR, ANEU ####[address] [place], [place] [address] MCHC 34.2 G/dL Normal 32.0-36.0 [facility] Comment on above: Performed By: #### T AGUILAR, CBC, MDW, BMP, ADIFF, GFR, ANEU ####[address] [place] [address] MCV (RBC) [Entitic vol] 90.7 fL Normal 80.0-99.0 [facility] Comment on above: Performed By: #### T AGUILAR, CBC, MDW, BMP, ADIFF, GFR, ANEU ####[address] [place] [phone] Platelet 192 10 3/mcL Normal 150-450 [facility] Comment on above: Performed By: #### T AGUILAR, CBC, MDW, BMP, ADIFF, GFR, ANEU ####[address] [place], [place] [address] Platelet mean volume (Bld) [Entitic vol] 9.1 fL Normal 6.6-10.5 [facility] Comment on above: Performed By: #### T AGUILAR, CBC, MDW, BMP, ADIFF, GFR, ANEU ####[address] [address] [place], [place] [address] RBC 4.39 10 6/mcL Normal 4.10-5.30 [facility] Comment on above: Performed By: #### T AGUILAR, CBC, MDW, BMP, ADIFF, GFR, ANEU ####[address] [place], [place] [address] WBC 10.7 10 3/mcL Normal 4.5-10.8 [facility] Comment on above: Performed By: #### T AGUILAR, CBC, MDW, BMP, ADIFF, GFR, ANEU ####[address] [place], [place] [address] LABORATORYOrdered By: SYSTEM SYSTEM on 01-15-2025 Basophils (Bld) [#/Vol] 0.1 103/mcL Normal 0.0 - 0.3 10^3/mcL AO Workflow SS Basophils/100 WBC (Bld) 0.8 % Normal 0.0 - 2.5 % AO Workflow SS Calcium [Mass/Vol] 9.2 mg/dL Normal 8.4 - 10. 2 mg/dL AO ADM SS Chloride [Moles/Vol] 98 mmol/L Normal 98 - 10 7 mmol/L AO ADM SS CO2 [Moles/Vol] 25 mmol/L Normal 22 - 29 mmol/L AO ADM SS Creatinine [Mass/Vol] 0.83 mg/dL Normal 0.51 - 0.95 mg/dL AO ADM SS Electrolyte Balance 4.0 mEq/L Normal 4.0 - 15 .0 mEq/L AO ADM SS Eosinophil, Absolute 0.6 103/mcL Normal 0.0 - 0 .7 10^3/mcL AO Workflow SS Eosinophils/100 WBC (Bld) 5.4 % Normal 0.0 - 6.0 % AO Workflow SS Erythrocyte distribution width (RBC) [Ratio] 13.2 % Normal 11.5 - 15.5 % AO Workflow SS Estimated Glomerular Filtration Rate 85 ml/min/1.73sqm Invalid Interpretation Code AO Chemistry S Comment on above: Interpretive Data: Stages of Chronic Kidney Disease (CKD) Stage Description eGFR(ml/min/1.73 sq.m.) CKD 1 Normal kidney function or >=90 normal kindney function with possible kidney damage (ex. Proteinuria) CKD 2 Kidney damage with mild loss 60-89 of kidney function CKD 3a Mild to moderate loss of kidney 45-59 function CKD 3b Moderate to severe loss of 30-44 of kindey function CKD 4 Severe loss of kidney function 15-29 CKD 5 Kidney failure <15 Note: (go live 2024) the eGFR calculation was updated to the 2020 CKD-EPI creatinine equation without a race factor to calculate the eGFR results. Glucose [Mass/Vol] 350 mg/dL High 70 - 105 mg/dL AO ADM SS Hematocrit (Bld) [Volume fraction] 39.8 % Normal 34.0 - 46.0 % AO Workflow SS Hemoglobin (Bld) [Mass/Vol] 13.6 G/dL Normal 12.0 - 16.0 G/dL AO Workflow SS Lymphocytes (Bld) [#/Vol] 3.6 103/mcL Normal 0.9 - 4.3 10^3/mcL AO Workflow SS Lymphocytes/100 WBC (Bld) 34.1 % Normal 20.0 - 40.0 % AO Workflow SS MCH (RBC) [Entitic mass] 31.0 pg Normal 27.0 - 33.0 pg AO Workflow SS MCHC 34.2 G/dL Normal 32.0 - 36.0 G/dL AO Workflow SS MCV (RBC) [Entitic vol] 90.7 fL Normal 80.0 - 99.0 fL AO Workflow SS Monocyte distribution width Auto (Bld) [Entitic vol] 17.99 1 Normal 0.00 - 20.00 AO Workflow SS Comment on above: Result Comment: For ED adult patients suspected of sepsis, MDW<=20.0 does not rule out sepsis or risk of sepsis Monocytes (Bld) [#/Vol] 0.8 103/mcL Normal 0.1 - 1.4 10^3/mcL AO Workflow SS Monocytes/100 WBC (Bld) 7.2 % Normal 2.0 - 13.0 % AO Workflow SS Neutrophils (Bld) [#/Vol] 5.6 103/mcL Normal 2.3 - 8.1 10^3/mcL AO Workflow SS Neutrophils/100 WBC (Bld) 52.5 % Normal 50.0 - 75.0 % AO Workflow SS Platelet mean volume (Bld) [Entitic vol] 9.1 fL Normal 6.6 - 10.5 fL AO Workflow SS Platelets (Bld) [#/Vol] 192 103/mcL Normal 150 - 450 10^3/mcL AO Workflow SS Potassium [Moles/Vol] 3.2 mmol/L Low 3.5 - 5.1 mmol/L AO ADM SS RBC (Bld) [#/Vol] 4.39 106/mcL Normal 4.10 - 5.3 0 10^6/mcL AO Workflow SS Sodium [Moles/Vol] 127 mmol/L Low 136 - 145 mmol/L AO ADM SS Troponin I.cardiac DL <= 0.01 ng/mL [Mass/Vol] 6 ng/L Normal 0 - 51 ng/L AO ADM SS Comment on above: Interpretive Data: H igh Sensitive Troponin I Reference Ranges: Female: 0-51 ng/L Male: 0-76 ng/L Testing performed on Dimension EXL using a homogeneous sandwich chemiluminescent immunoassay based on LOCI technology. Urea nitrogen [Mass/Vol] 15 mg/dL Normal 7 - 18 mg/dL AO ADM SS Urea nitrogen/Creatinine [Mass ratio] 18 ratio Normal 7 - 27 ratio AO ADM SS WBC (Bld) [#/Vol] 10.7 103/mcL Normal 4.5 - 10.8 10^3/mcL AO Workflow SS TROPHSon 01-15-2025 High Sensitivity Troponin I 6 ng/L Normal 0-51 [facility] Comment on above: Result Comment: High Sensitive Troponin I Reference Ranges: Female: 0-51 ng/L Male: 0-76 ng/L Testing performed on Dimension EXL using a homogeneous sandwich chemiluminescent immunoassay based on [employer] technology. Performed By: #### T ROPHS, CBC, MDW, BMP, ADIFF, GFR, ANEU ####[address] [address] XR CHEST 1 VIEWon 01-15-2025 XR CHEST 1 VIEW ORIGINAL EXAMINATION: ONE XRAY VIEW OF THE CHEST 01/15/2025 11:43 pm COMPARISON: None. HISTORY: ORDERING SYSTEM PROVIDED HISTORY: Reason for Exam: chest pain FINDINGS: The lungs are without acute focal process. There is no effusion or pneumothorax. The cardiomediastinal silhouette is without acute process. The osseous structures are without acute process. IMPRESSION: No acute process. Interpreted by: Arabella Haas Preliminary Report By: Arabella Haas Electronically signed By Arabella Haas Dictated Date: 01/15/2025 11:52:33 PM Prelim Date: 01/15/2025 11:52:44 PM Sign Date: 01/15/2025 11:52:44 PM Ordering Provider: THERON STOKES [facility] ED MED ADMINISTRATION DETAIL on 10-28-2024 ED MED ADMINISTRATION DETAIL [employer] Medication Administration Record [address] [address] [id number] 10/27/2024 Patient: KARLIE GOVEA Sex: Female : 1975 Age: 49y MEASUREMENTS: Wt: 102.1 kg, Ht/Moncho: 69.0 in, BMI: 33.23 ALLERGIES: No known drug allergies Medication Ordered Medication Administration Date/Time Keflex PO 500 mg 23:58 10/27 Keflex PO 500 mg given. Allergies verified and Given (NOW x1) confirmed 5 rights. Information reviewed with patient including 23:58 10/27/2024 reason for taking this medication. Verbalizes understanding. - Charli Lloyd R.N. 00:00 Charli Lloyd R.N. Scanned 1 of 1 [facility] ED NURSES CLINICAL NOTEon ED NURSES CLINICAL NOTE Nurse Narrative Nurse Clinical Narrative [address] [address] [id number] 10/27/2024 Patient: KARLIE GOVEA Sex: Female : 1975 Age: 49y Primary Insurance: [employer] OUTPATIENT Policy Number: [id number] Group Number: [id number] Subscriber: Other Secondary Insurance: [facility] OUT[facility] Policy Number: [id number] Group Number: [id number] Subscriber: Other Disposition: Discharge to Home Disposition Decision Time: 23:55 10/27/2024 Departure Time: 00:00 10/28/2024 TRIAGE Arrived by private vehicle. Historian: (patient). Primary physician (Cheyenne Bales). Primary care physician not notified of patient's arrival. Triage time: 22:25 10/27/2024. Acuity: LEVEL 3. Chief Complaint: PAINFUL URINATION, URGENCY and FREQUENCY and LOW BACK PAIN (incontinence (leaking per pt)). This started yesterday. ( Attempted to call PCP but she was out of the office). The patient has had nausea. No fever. -- 22:46 10/27/24 JELLY Ryan R.N. 22:25 10/27/24. SEPSIS SCREEN: NEGATIVE. SIRS criteria negative. -- 22:47 10/27/24 JELLY Ryan R.N. 22:41 10/27/24. BP: 151/91 MAP: 111. HR: 88. RR: 16. O2 saturation: 97% on room air. Temperature: 97.6 F (oral). Pain level now 8/10. (lower back). -- 22:46 10/27/24 JELLY Ryan R.N. Measurements: 22:40 10/27/24 Wt: 102.1 kg, Ht/Moncho: 69.0 in, BMI: 33.23 -- 22:41 10/27/24 JELLY Ryan R.N. 1 of 4 Nurse Narrative Medications: sertraline 100 mg tablet -- 22:50 10/27/24 JELLY Ryan R.N.Updated through eRx -- 22:53 10/27/24 JELLY Ryan R.N. metformin 1,000 mg tablet -- 22:50 10/27/24 JELLY Ryan R.N.Updated through eRx -- 22:53 10/27/24 JELLY Ryan R.N. glipizide ER 10 mg tablet, extended release 24 hr -- 22:50 10/27/24 JELLY Ryan R.N.Updated through eRx -- 22:53 10/27/24 JELLY Ryan R.N. gabapentin 800 mg tablet -- 22:50 10/27/24 JELLY Ryan R.N.Updated through eRx -- 22:53 10/27/24 JELLY Ryan R.N. aripiprazole 15 mg tablet -- 22:50 10/27/24 JELLY Ryan R.N.Updated through eRx -- 22:53 10/27/24 JELLY Ryan R.N. sertraline 100 mg tablet: 1 tablet once a day. -- 22:53 10/27/24 JELLY Ryan R.N. metformin 1,000 mg tablet: 1 tablet once a day. -- 22:53 10/27/24 JELLY Ryan R.N. glipizide ER 10 mg tablet, extended release 24 hr: 1 tablet once a day. -- 22:53 10/27/24 JELLY Ryan R.N. gabapentin 800 mg tablet: 1 tablet three times a day. -- 22:53 10/27/24 JELLY Ryan R.N. aripiprazole 15 mg tablet: 1 tablet every night at bedtime. -- 22:53 10/27/24 JELLY Ryan R.N. Allergies: no known drug allergies -- 22:34 10/27/24 JELLY Ryan R.N. Problems: Cancer. Breast -- 22:34 10/27/24 EJLLY Ryan R.N. Diabetes Mellitus -- 22:36 10/27/24 JELLY Ryan R.N. COPD - Chronic Obstructive Pulmonary Disease -- 22:37 10/27/24 JELLY Ryan R.N. Bipolar Disorder -- 22:57 10/27/24 JELLY Ryan R.N. ADDITIONAL SURGERIES: Massectomy. Bilateral -- 22:34 10/27/24 JELLY Ryan R.N. Gallbladder Surgery -- 22:35 10/27/24 JELLY Ryan R.N. . x2 -- 22:36 10/27/24 JELLY Ryan R.N. History 2 of 4 Nurse Narrative 22:25 10/27/24. SOCIAL HX: Regular vaping using vape pen. Drug use: marijuana. Recently used drugs yesterday. No alcohol use. The patient has not traveled outside the [place] Infectious disease exposure: No infectious disease exposure. ABUSE ASSESSMENT: The patient answered yes to the question(s) Do you feel safe in your home? and no to the question(s) Are you afraid to go home?. SELF HARM ASSESSMENT: Self harm assessment was performed. The patient answered no to the question(s) Have you recently felt down, depressed, or hopeless? and Do you have thoughts of harming or killing yourself?. FALL RISK ASSESSMENT: Fall risk assessment completed. No risk factors identified. -- 22:46 10/27/24 JELLY Ryan R.N. Interventions 22:25 10/27/24. Advanced care plan discussed with patient. Patient does not have advanced directive. -- 22:46 10/27/24 JELLY Ryan R.N. PHYSICAL ASSESSMENT 23:00 10/27/24. Ambulatory to room. ( states she has a UTI. Burning, frequency, urgency. States pain on her back, sore, into her kidney area.). GENERAL / NEURO / PSYCH: Alert. Oriented X 4. Appears in no acute distress. RESPIRATORY: Respirations not labored. CVS: Normal heart rate and rhythm. GI / : Bowel sounds within normal limits. -- 23:00 10/27/24 JELLY Lolyd R.N. NURSING PROGRESS NOTES 22:10/27/24. Patient ID band checked. Instructions provided to collect clean catch urine and patient verbalized understanding. Clean catch urine collected with return of yellow-colored urine; samp (more content not included)... Normal [facility] ED ORDER SHEET (CPOE ONLY)on 10-28-2024 ED ORDER SHEET (CPOE ONLY) Order Sheet Order Sheet [address] [address] [id number] 10/27/2024 Patient: KARLIE GOVEA Sex: Female : 1975 Age: 49y MEASUREMENTS: Wt: 102.1 kg, Ht/Moncho: 69.0 in, BMI: 33.23 ALLERGIES: No known drug allergies MEDICATION/IV/DRIP/FL UID ORDERS Order Description Priority Entered Acknowledged Completed Keflex PO500 mg (NOW x1) 23:11 10/27/2024 23:13 00:00 Waylon Maddox M.D. 10/27/2024 10/28/2024 Caitlin Brand R.N. Reason for ordering with alerts: Benefits outweigh risks --23:11 10/27/2024 Waylon Maddox M.D. LAB ORDERS Order Description Priority Entered Acknowledged Collected Completed Urinalysis Stat Stat 22:53 10/27/2024 22:56 10/27/2024 22:56 10/27/2024 Audrey Van, Audrey Ryan M.D. RMellyN. RMellyNMelly DIAGNOSTIC STUDY ORDERS Order Description Priority Entered Acknowledged Completed STAFF ORDERS Order Description Priority Entered Acknowledged Collected Completed 1 of 2 Order Sheet [Electronically signed by Waylon Maddox M.D. (10/27/2024 23:58 EST)] 2 of 2 Normal [facility] ED PHYSICIAN CLINICAL REPORT on 10-28-2024 ED PHYSICIAN CLINICAL REPORT Narrative Physician Clinical Narrative [address] [address] [id number] 10/27/2024 Patient: KARLIE GOVEA Sex: Female : 1975 Age: 49y Primary Insurance: [employer] OUTPATIENT Policy Number: [id number] Group Number: [id number] Subscriber: Other Secondary Insurance: [facility] OUTPATIENT Policy Number: [id number] Group Number: [id number] Subscriber: Other Measurements Wt: 102.1 kg, Ht/Moncho: 69.0 in, BMI: 33.23 Initial Vital Sign Measured Time BP MAP HR RR O2Sat ETCO2 Temp Pain GCS RTS 22:41 10/27/2024 151/91 111 88 16 97% RA 97.6 F 8 Time Seen: 22:58 10/27/2024. Arrived- By private vehicle. Historian- patient. HISTORY OF PRESENT ILLNESS Chief Complaint: DYSURIA. This started yesterday and still present. The symptoms are described as moderate. The patient has had flank pain. No abdominal pain, pelvic pain, vaginal pain, low back pain or vaginal discharge. No hematuria. The patient has had pain with urination and urinary frequency. Similar symptoms previously. Patient has had similar symptoms several times. REVIEW OF SYSTEMS GI: No nausea, vomiting or diarrhea. CONSTITUTIONAL: No fever or chills. 1 of 5 Narrative PAST HISTORY See nurses notes. Bipolar Disorder Cancer: (Breast) COPD - Chronic Obstructive Pulmonary Disease Diabetes Mellitus Surgeries: : (x2) Gallbladder Surgery Massectomy: Body Site Bilateral Medications: aripiprazole 15 mg tablet: 1 tablet every night at bedtime. gabapentin 800 mg tablet: 1 tablet three times a day. glipizide ER 10 mg tablet, extended release 24 hr: 1 tablet once a day. metformin 1,000 mg tablet: 1 tablet once a day. sertraline 100 mg tablet: 1 tablet once a day. Allergies: no known drug allergies SOCIAL HISTORY Regular vaping. No alcohol use or drug use. ADDITIONAL NOTES The nursing notes have been reviewed. PHYSICAL EXAM Vital Signs: Have been reviewed. Appearance: Alert. Oriented X3. No acute distress. HEENT: Normal external inspection. ENT: Pharynx normal. 2 of 5 Narrative Neck: Neck supple. CVS: Heart sounds normal. Respiratory: No respiratory distress. Breath sounds normal. Abdomen: Soft and nontender. Back: Moderate CVA tenderness on the right. Normal external inspection. Skin: Skin warm and dry. Normal skin color. Normal skin turgor. Extremities: Extremities nontender. No lower extremity edema. LABS, X-RAYS, AND EKG Diagnostic Tests: Diagnostic tests have been ordered, with results reviewed and considered in the medical decision making process. Laboratory Tests: URINALYSIS Final NERY: 10/27/2024 23:01:00 EST MsgRcvd: 10/27/2024 23:25 EST Lab Test Result Reference Status Received Comments 10/27/2024 23:25 URINALYSIS Final URINALYSIS EST 10/27/2024 23:25 Specimen Type R New Order EST NORMAL: 10/27/2024 23:25 Color shama Final YELLOW EST NORMAL: 10/27/2024 23:25 Clarity clear Final CLEAR EST NORMAL: 10/27/2024 23:25 ph 5 Final 5.0-8.0 EST 100 NORMAL: 10/27/2024 23:25 Protein Final Abnormal NEGATIVE EST 3 of 5 Narrative Lab Test Result Reference Status Received Comments NORMAL: 10/27/2024 23:25 Glucose NORM Final NORMAL EST NORMAL: 10/27/2024 23:25 Ketone NEG Final NEGATIVE EST NORMAL: 10/27/2024 23:25 Bilirubin NEG Final NEGATIVE EST NORMAL: 10/27/2024 23:25 Blood NEG Final NEGATIVE EST NORMAL: 10/27/2024 23:25 Urobilinog NORM Final NORMAL EST NORMAL: 10/27/2024 23:25 Sp Douglas 1.030 Final 1.010-1.030 EST NORMAL: 10/27/2024 23:25 Nitrite NEG Final NEGATIVE EST NORMAL: 10/27/2024 23:25 Leukocytes NEG Final NEGATIVE EST 10/27/2024 23:25 Microscopic NOT INDICATED Final EST PROGRESS AND PROCEDURES MEDICAL DECISION MAKING: (49-year-old female presenting with dysuria, frequency, left flank pain. Denies fever or chills. Vital signs are normal on initial assessment. She does have left CVA tenderness on exam. Given lack of fever or tachycardia, low suspicion for sepsis, no indication to obtain labs. Urinalysis was obtained and does not show any signs of bleeding making ureteral stone less likely. It also does not show any signs of infection but patient does have high pretest probability. Due to this we will treat with Keflex. Discussed with the patient in detail. I also discussed the possibility of STI has a cause for her dysuria the patient states that she has been not grimace and declined treatment or testing for STIs. Provided return precautions and encouraged follow up with PCP this week. Discharged in stable condition.). Disposition: Discharged in good condition. 4 of 5 Narrative CLINICAL IMPRESSION Dysuria. Probable acute cystitis. No hematuria (more content not included)... Normal [facility] ED SUPER BILLon 10-28-2024 ED [address] [place] [address] [phone] 10/27/2024 Patient: KARLIE GOVEA Sex: Female : 1975 Age: 49y Item Professional Category Description Facility Code Code Quantity Fee Total Nurse/E/M EMERGENCY 252666 1 $0.00 $0.00 DEPARTMENT VISIT MODERATE SEVERITY (22933-27) Grand Total $0.00 Providers Waylon Maddox M.D. Chief Complaint DYSURIA. Principal Diagnosis Dysuria. Probable acute cystitis. No hematuria present. 1 of 2 [facility] ICD-10 Codes R30.0: Dysuria 2 of 2 Normal [facility] ED VISIT SUMMARYon ED VISIT SUMMARY Visit Overview Visit Overview [address] [place] [address] [id number] 10/27/2024 [id number] Sex: Female : 1975 Age: 49y 10/28/2024 12:01 AM EST ED Arrival:21:52 10/27/2024 EST Status: Recent Travel:no Language:eng Adv Directive:No Isolation Status: Ethnicity:N Fall Risk:no risk Infectious Disease Exposure:no Measurements:5'9 / 175.3 Self-Harm Status:risk Sepsis Screen:negative cm 225.0 lb / 102.1 kg Chief Complaint:FREQUENCY, LOW BACK PAIN, PAINFUL URINATION, URGENCY, (Attempted to call PCP but she was out of the office), (incontinence (leaking per pt)), and (Cheyenne Ungerer) ALLERGIES No Known Drug Allergies HOME MEDICATIONS aripiprazole 15 mg tablet: 1 tablet every night at bedtime. gabapentin 800 mg tablet: 1 tablet three times a day. 1 of 3 Visit Overview glipizide ER 10 mg tablet, extended release 24 hr: 1 tablet once a day. metformin 1,000 mg tablet: 1 tablet once a day. sertraline 100 mg tablet: 1 tablet once a day. PAST MEDICAL HISTORY / PROBLEMS Bipolar Disorder Cancer. Breast COPD - Chronic Obstructive Pulmonary Disease Diabetes Mellitus See nurses notes PAST SURGICAL HISTORY . x2 Gallbladder Surgery Massectomy. Bilateral SOCIAL HISTORY Smoking status: Unknown Alcohol use: No Drug use: Yes ED COURSE MEDICATIONS GIVEN IN EMERGENCY DEPARTMENT 23:58 10/27/24 Keflex PO 500 mg IV SITE INFORMATION INTAKE OUTPUT REASSESMENT (most recent) 2 of 3 Visit Overview 23:00 10/27/24. Ambulatory to room. ( states she has a UTI. Burning, frequency, urgency. States pain on her back, sore, into her kidney area.). GENERAL / NEURO / PSYCH: Alert. Oriented X 4. Appears in no acute distress. RESPIRATORY: Respirations not labored. CVS: Normal heart rate and rhythm. GI / : Bowel sounds within normal limits. VITAL SIGNS First Vitals Last Vitals Temp 22:41 10/27/24 97.6 F Temp 22:41 10/27/24 97.6 F BP 22:41 10/27/24 151/91 BP 22:41 10/27/24 151/91 HR 22:41 10/27/24 88 HR 22:41 10/27/24 88 RR 22:41 10/27/24 16 RR 22:41 10/27/24 16 O2 Sat 22:41 10/27/24 97% RA O2 Sat 22:41 10/27/24 97% RA Pain 22:41 10/27/24 8 Pain 22:41 10/27/24 8 ETCO2 22:41 10/27/24 ETCO2 22:41 10/27/24 GCS 22:41 10/27/24 GCS 22:41 10/27/24 RTS 22:41 10/27/24 RTS 22:41 10/27/24 PROCEDURES NURSING INTERVENTIONS LABS / STUDIES LABS / STUDIES ORDERED Urinalysis CLINICAL IMPRESSION DYSURIA PROBABLE ACUTE CYSTITIS. NO HEMATURIA PRESENT 3 of 3 Normal [facility] ED VITALS FLOW SHEETon 10-28 ED VITALS FLOW SHEET Vitals [place] [address] [phone] 10/27/2024 Patient: KARLIE GOVEA Sex: Female : 1975 Age: 49y Measurements Wt: 102.1 kg, Ht/Moncho: 69.0 in, BMI: 33.23 Measured Time BP MAP HR RR O2Sat ETCO2 Temp Pain GCS RTS 22:41 10/27/2024 151/91 111 88 16 97% RA 97.6 F 8 1 of 1 Normal [facility] URINALYSISon 10-27-2024 Bilirubin Ql (U) Negative Normal NORMAL: NEGATIVE [facility] Comment on above: Performed By: #### 2 [id number] #### [facility],[address] [place] [address] Clarity (U) clear Normal NORMAL: CLEAR [facility] Comment on above: Performed By: #### 2 [id number] #### [facility],[address] [place] [address] Color (U) shama Normal NORMAL: YELLOW [facility] Comment on above: Performed By: #### 2 [id number] #### [facility],[address] [place] [address] Glucose Ql (U) NORM Normal NORMAL: NORMAL [facility] Comment on above: Performed By: #### 2 [id number] #### [facility],[address] [place] [address] Hemoglobin Ql (U) Negative Normal NORMAL: NEGATIVE [facility] Comment on above: Performed By: #### 2 [id number] #### [facility],[address] [place] [address] Ketone Negative Normal NORMAL: NEGATIVE [facility] Comment on above: Performed By: #### 2 41696 #### [facility],[address] [place] [address] Leukocytes Negative Normal NORMAL: NEGATIVE [facility] Comment on above: Performed By: #### 2 60190 #### [facility],[address] [place] [address] Nitrite Ql (U) Negative Normal NORMAL: NEGATIVE [facility] Comment on above: Performed By: #### 2 78790 #### [facility],[address] [place] [address] pH (U) 5 [pH] Normal NORMAL: 5.0-8.0 [facility] Comment on above: Performed By: #### 2 56048 #### [facility],[address] [place] [address] Protein Ql (U) 100 Abnormal NORMAL: NEGATIVE [facility] Comment on above: Performed By: #### 2 75477 #### [facility],[address] [place] [address] Sp Douglas 1.030 Normal NORMAL: 1.010-1.030 [facility] Comment on above: Performed By: #### 2 95919 #### [facility],[address] [place] [address] Specimen Type R Normal [facility] Comment on above: Performed By: #### 2 71212 #### [facility],[address] [place] [address] Urinalysis dipstick W Reflex Microscopic panel (U) NOT INDICATED Normal [facility] Comment on above: Performed By: #### 2 [id number] #### [facility],[address] [place] [address] Urobilinog NORM Normal NORMAL: NORMAL [facility] Comment on above: Performed By: #### 2 [id number] #### [facility],[address] [place] [address] .Auto Diffon 08-27-2024 Basophil, Absolute 0.1 10 3/mcL Normal 0.0-0.2 [facility] Comment on above: Performed By: #### C BC, GFR, ANEU, BMP, MDW, VBG, ADIFF #### [address] [address] Basophils/100 WBC (Bld) 0.7 % Normal 0.0-2.5 [facility] Comment on above: Performed By: #### C BC, GFR, ANEU, BMP, MDW, VBG, ADIFF #### [address] [address] Eosinophil, Absolute 0.7 10 3/mcL Normal 0.0-0.7 [facility] Comment on above: Performed By: #### C BC, GFR, ANEU, BMP, MDW, VBG, ADIFF #### [address] [address] Eosinophils/100 WBC (Bld) 7.8 % High 0.0-7.0 [facility] Comment on above: Performed By: #### C BC, GFR, ANEU, BMP, MDW, VBG, ADIFF #### [address] [address] Lymphocyte, Absolute 2.8 10 3/mcL Normal 0.9-4.3 [facility] Comment on above: Performed By: #### C BC, GFR, ANEU, BMP, MDW, VBG, ADIFF #### [address] [address] Lymphocytes/100 WBC (Bld) 29.7 % Normal 20.0-40.0 [facility] Comment on above: Performed By: #### C BC, GFR, ANEU, BMP, MDW, VBG, ADIFF #### [address] [address] Monocyte, Absolute 0.5 10 3/mcL Normal 0.1-1.4 [facility] Comment on above: Performed By: #### C BC, GFR, ANEU, BMP, MDW, VBG, ADIFF #### [address] [address] Monocytes/100 WBC (Bld) 5.2 % Normal 2.0-13.0 [facility] Comment on above: Performed By: #### C BC, GFR, ANEU, BMP, MDW, VBG, ADIFF #### [address] [address] Neutrophils/100 WBC (Bld) 56.6 % Normal 50.0-75.0 [facility] Comment on above: Performed By: #### C BC, GFR, ANEU, BMP, MDW, VBG, ADIFF #### [address] [address] .GFRon 08-27-2024 GFR 76 ml/min/1.73sqm Normal [facility] Comment on above: Result Comment: GFR Population mean for , Non- Americans Ages 20-29 = 116 mL/min/1.73 sq.m. Ages 30-39 = 107 mL/min/1.73 sq.m. Ages 40-49 = 99 mL/min/1.73 sq.m. Ages 50-59 = 93 mL/min/1.73 sq.m. Ages 60-69 = 85 mL/min/1.73 sq.m. Ages 70+ = 75 mL/min/1.73 sq.m. Chronic Kidney Disease: Less than 60 mL/min/1.73 square meters End Stage Renal Disease: Less than 15 mL/min/1.73 square meters Performed By: #### C BC, GFR, ANEU, BMP, MDW, VBG, ADIFF ####[address] [place], [place] [address] GFR Non- 63 ml/min/1.73sqm Normal [facility] Comment on above: Result Comment: GFR Population mean for , Non- Americans Ages 20-29 = 116 mL/min/1.73 sq.m. Ages 30-39 = 107 mL/min/1.73 sq.m. Ages 40-49 = 99 mL/min/1.73 sq.m. Ages 50-59 = 93 mL/min/1.73 sq.m. Ages 60-69 = 85 mL/min/1.73 sq.m. Ages 70+ = 75 mL/min/1.73 sq.m. Chronic Kidney Disease: Less than 60 mL/min/1.73 square meters End Stage Renal Disease: Less than 15 mL/min/1.73 square meters Performed By: #### C BC, GFR, ANEU, BMP, MDW, VBG, ADIFF ####[address] [place], [place] [address] .MDWon 08-27-2024 Monocyte Distribution Width 21.57 High 0.00-20.00 [facility] Comment on above: Result Comment: For adults in ED, MDW>20.0 may be associated with a higher risk of sepsis during the first 12hrs of hospital admission Performed By: #### C BC, GFR, ANEU, BMP, MDW, VBG, ADIFF #### [address] [address] .NEUABSon 08-27-2024 Neutrophil, Absolute 5.3 10 3/mcL Normal 2.3-8.1 [facility] Comment on above: Performed By: #### C BC, GFR, ANEU, BMP, MDW, VBG, ADIFF #### [address] [place], [place] [address] BMPon 08-27-2024 BUN/Creatinine Ratio 15 ratio Normal 7-27 [facility] Comment on above: Performed By: #### C BC, GFR, ANEU, BMP, MDW, VBG, ADIFF ####[address] [place], [place] [address] Calcium [Mass/Vol] 8.9 mg/dL Normal 8.4-10.2 [facility] Comment on above: Performed By: #### C BC, GFR, ANEU, BMP, MDW, VBG, ADIFF ####[facility] [place], [place] [address] Chloride [Moles/Vol] 100 mmol/L Normal 98-107 [facility] Comment on above: Performed By: #### C BC, GFR, ANEU, BMP, MDW, VBG, ADIFF ####[address] [place], [place] [address] CO2 [Moles/Vol] 28 mmol/L Normal 22-29 [facility] Comment on above: Performed By: #### C BC, GFR, ANEU, BMP, MDW, VBG, ADIFF ####[address] [place], [place] [address] Creatinine [Mass/Vol] 0.94 mg/dL Normal 0.55-1.02 [facility] Comment on above: Result Comment: Test ing performed on Siemens Dimension EXL analyzer using a modified kinetic Jessica technique. Performed By: #### C BC, GFR, ANEU, BMP, MDW, VBG, ADIFF ####[address] [place], [place] [address] Electrolyte Balance 8.0 mEq/L Normal 4.0-15.0 [facility] Comment on above: Performed By: #### C BC, GFR, ANEU, BMP, MDW, VBG, ADIFF ####[address] [place], [place] [address] Glucose [Mass/Vol] 321 mg/dL High 70-105 [facility] Comment on above: Performed By: #### C BC, GFR, ANEU, BMP, MDW, VBG, ADIFF ####[address] [place], [place] [address] Potassium [Moles/Vol] 4.3 mmol/L Normal 3.5-5.1 [facility] Comment on above: Performed By: #### C BC, GFR, ANEU, BMP, MDW, VBG, ADIFF ####[address] [address] Sodium [Moles/Vol] 136 mmol/L Normal 136-145 [facility] Comment on above: Performed By: #### C BC, GFR, ANEU, BMP, MDW, VBG, ADIFF ####[address] [address] Urea nitrogen [Mass/Vol] 14 mg/dL Normal 7-18 [facility] Comment on above: Performed By: #### C BC, GFR, ANEU, BMP, MDW, VBG, ADIFF ####[address] [address] CBCon 08-27-2024 Erythrocyte distribution width (RBC) [Ratio] 13.3 % Normal 11.5-15.5 [facility] Comment on above: Performed By: #### C BC, GFR, ANEU, BMP, MDW, VBG, ADIFF #### [address] [address] Hematocrit (Bld) [Volume fraction] 37.7 % Normal 34.0-46.0 [facility] Comment on above: Performed By: #### C BC, GFR, ANEU, BMP, MDW, VBG, ADIFF #### [address] [address] Hgb 12.7 G/dL Normal 12.0-16.0 [facility] Comment on above: Performed By: #### C BC, GFR, ANEU, BMP, MDW, VBG, ADIFF #### [address] [address] MCH (RBC) [Entitic mass] 30.8 pg Normal 27.0-33.0 [facility] Comment on above: Performed By: #### C BC, GFR, ANEU, BMP, MDW, VBG, ADIFF #### [address] [address] MCHC 33.7 G/dL Normal 32.0-36.0 [facility] Comment on above: Performed By: #### C BC, GFR, ANEU, BMP, MDW, VBG, ADIFF #### [address] [address] MCV (RBC) [Entitic vol] 91.5 fL Normal 80.0-99.0 [facility] Comment on above: Performed By: #### C BC, GFR, ANEU, BMP, MDW, VBG, ADIFF #### [address] [address] Platelet 245 10 3/mcL Normal 150-450 [facility] Comment on above: Performed By: #### C BC, GFR, ANEU, BMP, MDW, VBG, ADIFF #### [address] [address] Platelet mean volume (Bld) [Entitic vol] 9.7 fL Normal 6.6-10.5 [facility] Comment on above: Performed By: #### C BC, GFR, ANEU, BMP, MDW, VBG, ADIFF #### [address] [address] RBC 4.12 10 6/mcL Normal 4.10-5.30 [facility] Comment on above: Performed By: #### C BC, GFR, ANEU, BMP, MDW, VBG, ADIFF #### [address] [address] WBC 9.4 10 3/mcL Normal 4.5-10.8 [facility] Comment on above: Performed By: #### C BC, GFR, ANEU, BMP, MDW, VBG, ADIFF #### [address] [address] LABORATORYOrdered By: Kieran mccauley on 08-27-2024 Appearance (U) Clear (08/27/24 4:27 PM) Normal Clear AO Auto Urine SS Bilirubin Ql (U) Negative (08/27/24 4:27 PM) Normal Negative AO Auto Urine SS Color (U) Yellow (08/27/24 4:27 PM) Normal AO Auto Urine SS Glucose Test strip (U) [Mass/Vol] 500 mg/dL Invalid Interpretation Code Negative AO Auto Urine SS Hemoglobin Auto test strip (U) [Mass/Vol] Negative (08/27/24 4:27 PM) Normal Negative AO Auto Urine SS Ketones Ql (U) Negative Normal Negative AO Auto Ur ine SS UA Leuk Est Negative (08/27/24 4:27 PM) Normal Negative AO Auto Urine SS UA Nitrite Negative (08/27/24 4:27 PM) Normal Negative AO Auto Urine SS UA pH 5.5 (08/27/24 4:27 PM) Normal 5.0 - 8.0 AO Auto Urine SS UA Protein Trace mg/dL Normal Negative AO Auto Urine SS UA Spec Grav >=1.030 *ABN* (08/27/24 4:27 PM) Invalid Interpretation Code 1.015-1.025 AO Auto Urine SS UA Specimen Type Clean Catch (08/27/24 4:27 PM) Normal AO Auto Urine SS UA Urobilinogen 0.2 E.U./dL Normal 0.2-1.0 AO Auto Urine SS LABORATORYOrdered By: SYSTEM SYSTEM on 08-27-2024 Basophils (Bld) [#/Vol] 0.1 103/mcL Normal 0.0 - 0.2 10^3/mcL AO Workflow SS Basophils/100 WBC (Bld) 0.7 % Normal 0.0 - 2.5 % AO Workflow SS Calcium [Mass/Vol] 8.9 mg/dL Normal 8.4 - 10. 2 mg/dL AO ADM SS Chloride [Moles/Vol] 100 mmol/L Normal 98 - 10 7 mmol/L AO ADM SS CO2 [Moles/Vol] 28 mmol/L Normal 22 - 29 mmol/L AO ADM SS Creatinine [Mass/Vol] 0.94 mg/dL Normal 0.55 - 1.02 mg/dL AO ADM SS Comment on above: Interpretive Data: T esting performed on Vgift Dimension EXL analyzer using a modified kinetic Jessica technique. Electrolyte Balance 8.0 mEq/L Normal 4.0 - 15 .0 mEq/L AO ADM SS Eosinophil, Absolute 0.7 103/mcL Normal 0.0 - 0 .7 10^3/mcL AO Workflow SS Eosinophils/100 WBC (Bld) 7.8 % High 0.0 - 7.0 % AO Workflow SS Erythrocyte distribution width (RBC) [Ratio] 13.3 % Normal 11.5 - 15.5 % AO Workflow SS GFR/1.73 sq M.predicted among blacks MDRD (S/P/Bld) [Vol rate/Area] 76 ml/min/1.73sqm Invalid Interpretation Code AO Chemistry S Comment on above: Interpretive Data: GFR Population mean for , Non- Americans Ages 20-29 = 116 mL/min/1.73 sq.m. Ages 30-39 = 107 mL/min/1.73 sq.m. Ages 40-49 = 99 mL/min/1.73 sq.m. Ages 50-59 = 93 mL/min/1.73 sq.m. Ages 60-69 = 85 mL/min/1.73 sq.m. Ages 70+ = 75 mL/min/1.73 sq.m. Chronic Kidney Disease: Less than 60 mL/min/1.73 square meters End Stage Renal Disease: Less than 15 mL/min/1.73 square meters GFR/1.73 sq M.predicted among non-blacks MDRD (S/P/Bld) [Vol rate/Area] 63 ml/min/1.73sqm Invalid Interpretation Code AO Chemistry S Comment on above: Interpretive Data: GFR Population mean for , Non- Americans Ages 20-29 = 116 mL/min/1.73 sq.m. Ages 30-39 = 107 mL/min/1.73 sq.m. Ages 40-49 = 99 mL/min/1.73 sq.m. Ages 50-59 = 93 mL/min/1.73 sq.m. Ages 60-69 = 85 mL/min/1.73 sq.m. Ages 70+ = 75 mL/min/1.73 sq.m. Chronic Kidney Disease: Less than 60 mL/min/1.73 square meters End Stage Renal Disease: Less than 15 mL/min/1.73 square meters Glucose [Mass/Vol] 321 mg/dL High 70 - 105 mg/dL AO ADM SS Hematocrit (Bld) [Volume fraction] 37.7 % Normal 34.0 - 46.0 % AO Workflow SS Hemoglobin (Bld) [Mass/Vol] 12.7 G/dL Normal 12.0 - 16.0 G/dL AO Workflow SS Lymphocytes (Bld) [#/Vol] 2.8 103/mcL Normal 0.9 - 4.3 10^3/mcL AO Workflow SS Lymphocytes/100 WBC (Bld) 29.7 % Normal 20.0 - 40.0 % AO Workflow SS MCH (RBC) [Entitic mass] 30.8 pg Normal 27.0 - 33.0 pg AO Workflow SS MCHC 33.7 G/dL Normal 32.0 - 36.0 G/dL AO Workflow SS MCV (RBC) [Entitic vol] 91.5 fL Normal 80.0 - 99.0 fL AO Workflow SS Monocyte distribution width Auto (Bld) [Entitic vol] 21.57 1 High 0.00 - 20.00 AO Workflow SS Comment on above: Result Comment: For adults in ED, MDW>20.0 may be associated with a higher risk of sepsis during the first 12hrs of hospital admission Monocytes (Bld) [#/Vol] 0.5 103/mcL Normal 0.1 - 1.4 10^3/mcL AO Workflow SS Monocytes/100 WBC (Bld) 5.2 % Normal 2.0 - 13.0 % AO Workflow SS Neutrophils (Bld) [#/Vol] 5.3 103/mcL Normal 2.3 - 8.1 10^3/mcL AO Workflow SS Neutrophils/100 WBC (Bld) 56.6 % Normal 50.0 - 75.0 % AO Workflow SS Platelet mean volume (Bld) [Entitic vol] 9.7 fL Normal 6.6 - 10.5 fL AO Workflow SS Platelets (Bld) [#/Vol] 245 103/mcL Normal 150 - 450 10^3/mcL AO Workflow SS Potassium [Moles/Vol] 4.3 mmol/L Normal 3.5 - 5.1 mmol/L AO ADM SS RBC (Bld) [#/Vol] 4.12 106/mcL Normal 4.10 - 5.3 0 10^6/mcL AO Workflow SS Sodium [Moles/Vol] 136 mmol/L Normal 136 - 145 mmol/L AO ADM SS Urea nitrogen [Mass/Vol] 14 mg/dL Normal 7 - 18 mg/dL AO ADM SS Urea nitrogen/Creatinine [Mass ratio] 15 ratio Normal 7 - 27 ratio AO ADM SS WBC (Bld) [#/Vol] 9.4 103/mcL Normal 4.5 - 10.8 10^3/mcL AO Workflow SS LABORATORYOrdered By: Edmond Graham on 08-27-2024 BE Venous -1.4 mmol/L Normal -3.0 - 3.0 mmol/L AO Rapid Comm SS CO2 [Moles/Vol] 23.0 mmol/L Normal 22.0 - 32.0 mmol/L AO Rapid Comm SS HCO3 (Bld) [Moles/Vol] 22.0 mmol/L Normal 21.0 - 30.0 mmol/L AO Rapid Comm SS pCO2 Eitan 33.0 mm[Hg] Low 41.0 - 51.0 mm Hg AO Rapid Comm SS pH (Bld) 7.441 [pH] Normal 7.380 - 7.460 AO Rapid Comm SS pO2 Eitan 81.2 mm[Hg] High 35.0 - 40.0 mm Hg AO Rapid Comm SS LABORATORYOrdered By: Adeline Hurt on 08-27-2024 Glucose [Mass/Vol] 347 mg/dL High 70 - 110 mg/dL [facility] Comment on above: Result Comment: per squad, 518 per pt before she called squad UAon 08-27-2024 Color (U) Yellow Normal [facility] Comment on above: Performed By: #### U A ####[address] [place], [place] [address] Glucose (U) [Mass/Vol] 500 mg/dL Abnormal Negative [facility] Comment on above: Performed By: #### U A ####[address] [place], [place] [address] Ketones Ql (U) Negative Normal Negative [facility] Comment on above: Performed By: #### U A ####[address] [place], [place] [address] UA Appear Clear Normal Clear [facility] Comment on above: Performed By: #### U A ####[address] [place], [place] [address] UA Blood Negative Normal Negative [facility] Comment on above: Performed By: #### U A ####[address] [place] [address] UA Leuk Est Negative Normal Negative [facility] Comment on above: Performed By: #### U A ####[address] [place] [address] UA Nitrite Negative Normal Negative [facility] Comment on above: Performed By: #### U A ####[address] [place] [address] UA pH 5.5 Normal 5.0 - 8.0 [facility] Comment on above: Performed By: #### U A ####[address] [place] [address] UA Protein Trace Normal Negative [facility] Comment on above: Performed By: #### U A ####[address] [place] [address] UA Spec Grav >=1.030 Abnormal 1.015-1.025 [facility] Comment on above: Performed By: #### U A ####[address] [place] [address] UA Specimen Type Clean Catch Normal [facility] Comment on above: Performed By: #### U A ####[place] [address] UA Urobilinogen 0.2 E.U./dL Normal 0.2-1.0 [facility] Comment on above: Performed By: #### U A ####[address] [place] [address] Urobilinogen (U) [Mass/Vol] Negative Normal Negative [facility] Comment on above: Performed By: #### U A ####[address] [place] [address] VBGon 08-27-2024 BE Venous -1.4 mmol/L Normal -3.0-3.0 [facility] Comment on above: Performed By: #### C BC, GFR, ANEU, BMP, MDW, VBG, ADIFF ####[address] [place] [id number] CO2 [Moles/Vol] 23.0 mmol/L Normal 22.0-32.0 [facility] Comment on above: Performed By: #### C BC, GFR, ANEU, BMP, MDW, VBG, ADIFF ####[address] [place], [place] [address] HCO3 (Bld) [Moles/Vol] 22.0 mmol/L Normal 21.0-30.0 [facility] Comment on above: Performed By: #### C BC, GFR, ANEU, BMP, MDW, VBG, ADIFF ####[address] [place], [place] [address] Oxygen saturation in Blood 96.4 % High 70.0-75.0 [facility] Comment on above: Performed By: #### C BC, GFR, ANEU, BMP, MDW, VBG, ADIFF ####[address] [place], [place] [address] pCO2 Eitan 33.0 mmHg Low 41.0-51.0 [facility] Comment on above: Performed By: #### C BC, GFR, ANEU, BMP, MDW, VBG, ADIFF ####[address] [place], [place] [address] pH Venous 7.441 Normal 7.380-7.460 [facility] Comment on above: Performed By: #### C BC, GFR, ANEU, BMP, MDW, VBG, ADIFF ####[address] [place], [place] [address] pO2 Eitan 81.2 mmHg High 35.0-40.0 [facility] Comment on above: Performed By: #### C BC, GFR, ANEU, BMP, MDW, VBG, ADIFF ####[address] [place], [place] [address] CBC W Auto Differential pane l (Bld)on 05-29-2024 Basophils (Bld) [#/Vol] 0.10 10*3/uL Normal <0.11 [facility] Comment on above: Order Comment: Speci men Type: BLOOD SPECIMEN Ordering Facility: [facility] Address: [address] [place] [address] Performed By: #### L [id number], 87947-6, 84620-6, 20486-5 #### [facility] CLIA [id number] [address] [place] [address] [place] Basophils/100 WBC (Bld) 0.8 % [facility] Comment on above: Order Comment: Speci men Type: BLOOD SPECIMEN Ordering Facility: [facility] Address: [address] [place] [address] Performed By: #### L [id number], 85411-1, 02588-5, 83382-6 #### [facility] CLIA [id number] [address] [place] [address] [place] Differential cell count method Nom (Bld) Auto Normal [facility] Comment on above: Order Comment: Speci men Type: BLOOD SPECIMEN Ordering Facility: [facility] Address: [address] [place] [address] Performed By: #### L [id number], 27691-0, 48992-3, 55508-6 #### [facility] CLIA [id number] [address] [place] [address] [place] Eosinophils (Bld) [#/Vol] 0.70 10*3/uL High <0.46 [facility] Comment on above: Order Comment: Speci men Type: BLOOD SPECIMEN Ordering Facility: [facility] Address: [address] [place] [address] Performed By: #### L [id number], 19284-1, 87413-4, 75488-3 #### [facility] CLIA [id number] [address] [place] [address] [place] Eosinophils/100 WBC (Bld) 5.8 % [facility] Comment on above: Order Comment: Speci men Type: BLOOD SPECIMEN Ordering Facility: [facility] Address: [address] [place] [address] Performed By: #### L [id number], 35545-1, 72763-8, 29761-7 #### [facility] CLIA [id number] [address] [place] [address] [place] Erythrocyte distribution width (RBC) [Ratio] 11.7 % Normal 11.5-15.0 [facility] Comment on above: Order Comment: Speci men Type: BLOOD SPECIMEN Ordering Facility: [facility] Address: [address] [place] [address] Performed By: #### L [id number], 79037-5, 55407-8, 79666-6 #### [facility] CLIA [id number] [address] [place] [address] [place] Hematocrit (Bld) [Volume fraction] 41.7 % Normal 36.0-46.0 [facility] Comment on above: Order Comment: Speci men Type: BLOOD SPECIMEN Ordering Facility: [facility] Address: [address] [place] [address] Performed By: #### L [id number], 73502-6, 74156-6, #### [facility] CLIA [id number] [address] [place] [address] [place] Hemoglobin (Bld) [Mass/Vol] 14.3 g/dL Normal 11.5-15.5 [facility] Comment on above: Order Comment: Speci men Type: BLOOD SPECIMEN Ordering Facility: [facility] Address: [address] [place] [address] Performed By: #### L [id number], 34716-5, 83164-8, #### [facility] CLIA [id number] [address] [place] [address] [place] Immature granulocytes (Bld) [#/Vol] 0.06 10*3/uL Normal <0.10 [facility] Comment on above: Order Comment: Speci men Type: BLOOD SPECIMEN Ordering Facility: [facility] Address: [address] [place] [address] Performed By: #### L [id number], 12381-3, 87400-3, 29949-5 #### [facility] CLIA [id number] [address] [place] [address] [place] Immature granulocytes/100 WBC (Bld) 0.5 % Normal [facility] Comment on above: Order Comment: Speci men Type: BLOOD SPECIMEN Ordering Facility: [facility] Address: [address] [place] [address] Performed By: #### L [id number], 50476-0, 02883-0, 19719-9 #### [facility] CLIA [id number] [address] [place] [address] [place] Lymphocytes (Bld) [#/Vol] 2.95 10*3/uL Normal 1.00-4.00 [facility] Comment on above: Order Comment: Speci men Type: BLOOD SPECIMEN Ordering Facility: [facility] Address: [address] [place] [address] Performed By: #### L [id number], 00673-6, 50762-7, 14005-4 #### [facility] CLIA [id number] [address] [place] [address] [place] Lymphocytes/100 WBC (Bld) 24.4 % Normal [facility] Comment on above: Order Comment: Speci men Type: BLOOD SPECIMEN Ordering Facility: [facility] Address: [address] [place] [address] Performed By: #### L [id number], 38776-5, 93303-7, 65303-3 #### [facility] CLIA [id number] [address] [place] [address] [place] MCH (RBC) [Entitic mass] 31.0 pg Normal 26.0-34.0 [facility] Comment on above: Order Comment: Speci men Type: BLOOD SPECIMEN Ordering Facility: [facility] Address: [address] [place] [address] Performed By: #### L [id number], 82721-1, 18205-8, 08498-0 #### [facility] CLIA [id number] [address] [place] [address] [place] MCHC (RBC) [Mass/Vol] 34.3 g/dL Normal 30.5-36.0 [facility] Comment on above: Order Comment: Speci men Type: BLOOD SPECIMEN Ordering Facility: [facility] Address: [address] [place] [address] Performed By: #### L [id number], 44122-4, 09878-8, 23033-1 #### [facility] CLIA [id number] [address] [place] [address] [place] MCV (RBC) [Entitic vol] 90.3 fL Normal 80.0-100.0 [facility] Comment on above: Order Comment: Speci men Type: BLOOD SPECIMEN Ordering Facility: [facility] Address: [address] [place] [address] Performed By: #### L [id number], , 03683-5, #### [facility] CLIA [id number] [address] [place] [address] [place] Monocytes (Bld) [#/Vol] 0.68 10*3/uL Normal <0.87 [facility] Comment on above: Order Comment: Speci men Type: BLOOD SPECIMEN Ordering Facility: [facility] Address: [address] [place] [address] Performed By: #### L [id number], , 77723-6, #### [facility] CLIA [id number] [address] [place] [address] [place] Monocytes/100 WBC (Bld) 5.6 % Normal [facility] Comment on above: Order Comment: Speci men Type: BLOOD SPECIMEN Ordering Facility: [facility] Address: [address] [place] [address] Performed By: #### L [id number], , 53438-9, 42753-3 #### [facility] CLIA [id number] [address] [place] [address] [place] Neutrophils (Bld) [#/Vol] 7.62 10*3/uL High 1.45-7.50 [facility] Comment on above: Order Comment: Speci men Type: BLOOD SPECIMEN Ordering Facility: [facility] Address: [address] [place] [address] Performed By: #### L [id number], 12946-8, 25755-1, 34764-4 #### [facility] CLIA [id number] [address] [place] [address] [place] Neutrophils/100 WBC (Bld) 62.9 % Normal [facility] Comment on above: Order Comment: Speci men Type: BLOOD SPECIMEN Ordering Facility: [facility] Address: [address] [place] [address] Performed By: #### L [id number], 51914-8, 11530-2, 52082-6 #### [facility] CLIA [id number] [address] [place] [address] [place] Nucleated RBC (Bld) [#/Vol] 10*3/uL Normal <0.01 [facility] Comment on above: Order Comment: Speci men Type: BLOOD SPECIMEN Ordering Facility: [facility] Address: [address] [place] [address] Performed By: #### L [id number], 45281-5, 60208-9, 39849-5 #### [facility] CLIA [id number] [address] [place] [address] [place] Nucleated RBC/100 WBC (Bld) [Ratio] 0.0 /100 WBC Normal [facility] Comment on above: Order Comment: Speci men Type: BLOOD SPECIMEN Ordering Facility: [facility] Address: [address] [place] [address] Performed By: #### L [id number], [id number], 94420-5, 97804-5 #### [facility] CLIA [id number] [address] [place] [address] [place] Platelet mean volume (Bld) [Entitic vol] 10.2 fL Normal 9.0-12.7 [facility] Comment on above: Order Comment: Speci men Type: BLOOD SPECIMEN Ordering Facility: [facility] Address: [address] [place] [address] Performed By: #### L [id number], 00775-0, 24973-8, 03450-8 #### [facility] CLIA [id number] [address] [place], [place] [address] [place] Platelets (Bld) [#/Vol] 250 10*3/uL Normal 150-400 [facility] Comment on above: Order Comment: Speci men Type: BLOOD SPECIMEN Ordering Facility: [facility] Address: [address] [place] [address] Performed By: #### L [id number], 00716-5, 37303-4, 80630-7 #### [facility] CLIA [id number] [address] [place] [address] [place] RBC (Bld) [#/Vol] 4.62 10*6/uL Normal 3.90-5.20 [facility] Comment on above: Order Comment: Speci men Type: BLOOD SPECIMEN Ordering Facility: [facility] Address: [address] [place] [address] Performed By: #### L [id number], 60365-2, 28472-7, 18686-3 #### [facility] CLIA [id number] [address] [place], [place] [address] [place] WBC (Bld) [#/Vol] 12.11 10*3/uL High 3.70-11.00 [facility] Comment on above: Order Comment: Speci men Type: BLOOD SPECIMEN Ordering Facility: [facility] Address: [address] [place] [address] Performed By: #### L [id number], 69716-5, 44832-9, 91695-2 #### [facility] CLIA [id number] [address] [place], [place] [address] [place] CT BRAIN WO IVCONon 05-29-[address] BRAIN WO IVCON * * *Final Report* * * DATE OF EXAM: May 29 2024 3:36PM [facility] 0504 - CT BRAIN WO IVCON / PROCEDURE REASON: Head trauma, moderate-severe * * * * Physician Interpretation * * * * EXAMINATION: CT BRAIN WO IVCON CLINICAL HISTORY: Head trauma TECHNIQUE: Serial axial images without IV contrast were obtained from the vertex to the foramen magnum. MQ: CTBWO_3 CT Radiation dose: Integrated Dose-Length Product (DLP) for this visit = 744.4 mGy*cm CT Dose Reduction Employed: No dose reduction techniques were required COMPARISON: None. RESULT: Post-operative change: None. Acute change: No evidence of an acute infarct or other acute parenchymal process. Hemorrhage: No evidence of acute intracranial hemorrhage. ECASS hemorrhagic transformation score: Not Applicable Mass Lesion / Mass Effect: There is no evidence of an intracranial mass or extraaxial fluid collection. No significant mass effect. Chronic change: None apparent. Parenchyma: There is no significant volume loss. The brain parenchyma is otherwise within normal limits for age. Ventricles: The ventricles are within normal limits of size and configuration for age. Paranasal sinuses and skull base: The visualized paranasal sinuses are grossly clear. The skull base and imaged soft tissues are unremarkable. Localizer images: Unremarkable. IMPRESSION: No acute intracranial process identified. Search Lead: ALBINO Transcribe Date/Time: May 29 2024 4:47P Dictated by : HARPER PADILLA MD This examination was interpreted and the report reviewed and electronically signed by: HARPER PADILLA MD on May 29 2024 4:48PM EST [id number] N Normal [facility] Comprehensive metabolic 2000 panelon 05-29-2024 Albumin [Mass/Vol] 4.5 g/dL Normal 3.9-4.9 [facility] Comment on above: Order Comment: Hue rizzo Type: BLOOD SPECIMEN Ordering Facility: [facility] Address: [address] [place] [address] Performed By: #### L [id number], 42656-6, 02868-9, 78990-1 #### [facility] CLIA [id number] [address] [place] [address] [place] ALP [Catalytic activity/Vol] 109 U/L Normal 34-123 [facility] Comment on above: Order Comment: Ajayi so Type: BLOOD SPECIMEN Ordering Facility: [facility] Address: [address] [place] [address] Performed By: #### L [id number], 63941-6, 32329-2, 27061-8 #### [facility] CLIA [id number] [address] [place] [address] [place] ALT [Catalytic activity/Vol] 29 U/L Normal 7-38 [facility] Comment on above: Order Comment: Speci men Type: BLOOD SPECIMEN Ordering Facility: [facility] Address: [address] [place] [address] Performed By: #### L [id number], 10615-6, 55756-2, 77493-6 #### [facility] CLIA [id number] [address] [place] [address] [place] Anion gap [Moles/Vol] 14 mmol/L Normal 8-15 [facility] Comment on above: Order Comment: Speci men Type: BLOOD SPECIMEN Ordering Facility: [facility] Address: [address] [place] [address] Performed By: #### L [id number], 40465-9, 30926-5, 72113-3 #### [facility] CLIA [id number] [address] [place] [address] [place] AST [Catalytic activity/Vol] 29 U/L Normal 13-35 [facility] Comment on above: Order Comment: Speci men Type: BLOOD SPECIMEN Ordering Facility: [facility] Address: [address] [place] [address] Performed By: #### L [id number], 24977-2, 44475-4, 32467-4 #### [facility] CLIA [id number] [address] [place] [address] [place] Bilirubin [Mass/Vol] 0.4 mg/dL Normal 0.2-1.3 [facility] Comment on above: Order Comment: Speci men Type: BLOOD SPECIMEN Ordering Facility: [facility] Address: [address] [place] [address] Performed By: #### L [id number], 83921-4, 97255-2, 41247-7 #### [facility] CLIA [id number] [address] [place] [address] [place] Calcium [Mass/Vol] 10.0 mg/dL Normal 8.5-10.2 [facility] Comment on above: Order Comment: Speci men Type: BLOOD SPECIMEN Ordering Facility: [facility] Address: [address] [place] [address] Performed By: #### L [id number], 25879-8, 96836-6, 32515-2 #### [facility] CLIA [id number] [address] [place] [address] [place] Chloride [Moles/Vol] 96 mmol/L Low 98-107 [facility] Comment on above: Order Comment: Speci men Type: BLOOD SPECIMEN Ordering Facility: [facility] Address: [address] [place] [address] Performed By: #### L [id number], 93245-2, 41481-4, 69639-2 #### [facility] CLIA [id number] [address] [place] [address] [place] CO2 [Moles/Vol] 25 mmol/L Normal 22-30 [facility] Comment on above: Order Comment: Speci men Type: BLOOD SPECIMEN Ordering Facility: [facility] Address: [address] [place] [address] Performed By: #### L [id number], 38858-4, 30827-6, 10080-4 #### [facility] CLIA [id number] [address] [place] [address] [place] Creatinine [Mass/Vol] 0.87 mg/dL Normal 0.58-0.96 [facility] Comment on above: Order Comment: Speci men Type: BLOOD SPECIMEN Ordering Facility: [facility] Address: [address] [place] [address] Performed By: #### L [id number], 37607-7, 33928-6, 06211-0 #### [facility] CLIA [id number] [address] [place] [address] [place] Creatinine and Glomerular filtration rate.predicted panel (S/P/Bld) 81 mL/min/1.73m??? Normal >=60 [facility] Comment on above: Order Comment: Speci men Type: BLOOD SPECIMEN Ordering Facility: [facility] Address: [address] [place] [address] Result Comment: Payton mated Glomerular Filtration Rate (eGFR) is calculated using the 2020 CKD-EPI creatinine equation. This equation utilizes serum creatinine, sex, and age as parameters. The creatinine assay has traceable calibration to isotope dilution-mass spectrometry. Refer to KDIGO guidelines for clinical interpretation. In patients with unstable renal function, e.g. those with acute kidney injury, the eGFR may not accurately reflect actual GFR. Performed By: #### L [id number], 48906-9, 91385-7, 38655-1 #### [facility] CLIA [id number] [address] [place] [address] [place] Glucose [Mass/Vol] 302 mg/dL High 74-99 [facility] Comment on above: Order Comment: Hue rizzo Type: BLOOD SPECIMEN Ordering Facility: [facility] Address: [address] [place] [address] Result Comment: The [place] Diabetes Association (ADA) provides guidance for cutoff values for fasting glucose and random glucose. The ADA defines fasting as no caloric intake for at least 8 hours. Fasting plasma glucose results between 100 to 125 mg/dL indicate increased risk for diabetes (prediabetes). Fasting plasma glucose results greater than or equal to 126 mg/dL meet the criteria for diagnosis of diabetes. In the absence of unequivocal hyperglycemia, results should be confirmed by repeat testing. In a patient with classic symptoms of hyperglycemia or hyperglycemic crisis, random plasma glucose results greater than or equal to 200 mg/dL meet the criteria for diagnosis of diabetes. Reference: Standards of Medical Care in Diabetes 2016, [place] [employer] Association. Diabetes Care. 2016.39(Suppl 1). Performed By: #### L [id number], 07380-3, 61808-7, 90403-5 #### [facility] CLIA [id number] [address] [place] [address] [place] Potassium [Moles/Vol] 4.3 mmol/L Normal 3.7-5.1 [facility] Comment on above: Order Comment: [facility] Type: BLOOD SPECIMEN Ordering Facility: [facility] Address: [address] [place] [address] Performed By: #### L [id number], 54316-8, 22038-7, 40884-2 #### [facility] CLIA [id number] [address] [place], [place] [address] [place] Protein [Mass/Vol] 7.8 g/dL Normal 6.3-8.0 [facility] Comment on above: Order Comment: Speci men Type: BLOOD SPECIMEN Ordering Facility: [facility] Address: [address] [place], [place] [address] Performed By: #### L [id number], 37276-4, 05302-9, 78699-5 #### [facility] CLIA [id number] [address] [place] [address] [place] Sodium [Moles/Vol] 135 mmol/L Low 136-144 [facility] Comment on above: Order Comment: Speci men Type: BLOOD SPECIMEN Ordering Facility: [facility] Address: [address] [place] [address] Performed By: #### L [id number], 45604-8, 05697-1, 95083-1 #### [facility] CLIA [id number] [address] [place] [address] [place] Urea nitrogen [Mass/Vol] 9 mg/dL Normal 7- [facility] Comment on above: Order Comment: Speci men Type: BLOOD SPECIMEN Ordering Facility: [facility] Address: [address] [place] [address] Performed By: #### L [id number], 25649-2, 28550-8, 51702-3 #### [facility] CLIA [id number] [address] [place] [address] [place] ECG COMPLETEon 05-29-2024 ECG COMPLETE Ventricular Rate : 103 BPM Atrial Rate : 103 BPM P-R Interval : 150 ms QRS Duration : 84 ms Q-T Interval : 340 ms QTC Calculation(Bazett) : 445 ms Calculated P Lometa : 39 degrees Calculated R Lometa : 58 degrees Calculated T Lometa : 42 degrees Sinus tachycardia Otherwise normal ECG When compared with ECG of 29-May-2024 13:36, No significant change was found Confirmed by GLADIS CUELLO MD ([id number]) on 06/02/2024 8:11:42 AM NAME : KARLIE GOVEA PID : [id number] : 1975 Gender : Female Race : ORD : [id number] Procedure Date : May 29 2024 13:47:46 Edit Date : Jun 02 2024 08:11:44 Diagnosis: Sinus tachycardia Otherwise normal ECG When compared with ECG of 29-May-2024 13:36, No significant change was found Confirmed by GLADIS CUELLO MD ([id number]) on 06/02/2024 8:11:42 AM Test Reason : HCS Location : 3 : ED ED Overread By : GLADIS CUELLO MD Edited By : GLADIS CUELLO MD Referred By : , Acquired by : [facility] ECG COMPLETE Ventricular Rate : 118 BPM Atrial Rate : 118 BPM P-R Interval : 154 ms QRS Duration : 86 ms Q-T Interval : 326 ms QTC Calculation(Bazett) : 456 ms Calculated P Lometa : 50 degrees Calculated R Lometa : 57 degrees Calculated T Lometa : 38 degrees Sinus tachycardia Otherwise normal ECG When compared with ECG of 27-May-2024 16:12, No significant change was found Confirmed by GLADIS CUELLO MD ([id number]) on 06/02/2024 8:11:50 AM NAME : KARLIE GOVEA PID : [id number] : 1975 Gender : Female Race : ORD : [id number] Procedure Date : May 29 2024 13:36:49 Edit Date : Jun 02 2024 08:11:54 Diagnosis: Sinus tachycardia Otherwise normal ECG When compared with ECG of 27-May-2024 16:12, No significant change was found Confirmed by GLADIS CUELLO MD ([id number]) on 06/02/2024 8:11:50 AM Test Reason : HCS Location : 3 : ED ED Overread By : GLADIS CUELLO MD Edited By : GLADIS CUELLO MD Referred By : , Acquired by : [facility] ED NOTEon 05-29-2024 ED NOTE HNO ID: [id number] Author: WINSTON NAYLOR RN Service: ? Author Type: Registered Nurse Type: ED Notes Filed: 05/29/2024 14:59 Note Text: [facility] ED NOTE HNO ID: [id number] Author: NIKKI MENENDEZ RN Service: ? Author Type: Registered Nurse Type: ED Notes Filed: 05/29/2024 13:15 Note Text: Pt is a 49 y/o female presenting from home. Pt states she feels like her heart is beating out of her chest. Pt states the feeling has been constant for about a week. Pt reports feeling dizzy with the pain. Pt states I was here a few days ago and begged the doctor to let me go home and I followed up with my family doctor. I thought this was just anxiety. My family doctor gave me ativan and it made my symptoms worse. I dont think its anxiety anymore. I'm actually analia scared. Pt insisted on walking back to ed room. Pt has steady gait. Upon entry into ed room pt states see now I'm getting short of breath and feel like a elephant is sitting on me. It always feels like this. Once I rest it will go away. Primary rn notified [facility] ED PROV NOTEon 05-29-2024 ED PROV NOTE HNO ID: [id number] Author: NORBERT WHITE MD Service: ? Author Type: Physician Type: ED Provider Notes Filed: 05/29/2024 17:07 Note Text: ED Provider Note Patient Name: Karlie Govea : 1975 SERVICE DATE: 05/29/24 History Patient presents with: Palpitations: X 1 week 49-year-old female with history of diabetes and bipolar disorder presented to ED for evaluation of 1 week history of potation chest pain and headaches. Patient states that she has been having intermittent lower heart palpitation. With exertional dyspnea. Patient states that this has been very frequent over the few days. Patient also states that she is experienced chest pressure along with the episode. Patient stated that she saw her PCP yesterday and was told that his anxiety. Patient was prescribed Ativan. Patient states that she took 2 mg of Ativan earlier today with no relief. Patient believes something serious is going on. Patient is also stating that for the past week she has been getting right frontal headache that she can go rid of. Patient currently rates the headache a 9 out of 10. Patient with no visual changes dizziness. Patient does have nausea but no vomiting. No history of coronary disease PAST MEDICAL HISTORY Diagnosis Date Breast cancer (HCC) mastectomy 2010. Coccygeal fracture (HCC) Lumbar disc disease Migraines PAST SURGICAL HISTORY Procedure Laterality Date CHOLECYSTECTOMY Cholecystectomy MAST RAD W/PECTORAL MUSCLES AXILLARY LYMPH NODES 2011 bilateral - [place] RPR 1ST INGUN HRNA AGE 5 YRS/> REDUCIBLE Hernia repair, inguinal - right TOTAL ABDOMINAL HYSTERECT W/WO RMVL TUBE OVARY 2000 Hysterectomy, MARY - pt has one ovary - FAMILY HISTORY Problem Relation Age of Onset Cancer Mother lung and brain Stroke Mother Arthritis Mother Alzheimer's Disease Father Diabetes Father Hypertension Father 7 stents Cancer Maternal Grandmother Uterine Cancer Maternal Uncle Colon Cancer Paternal Uncle Prostate Cancer Maternal Aunt Lung Social History Tobacco Use Smoking status: Former Current packs/day: 0.00 Average packs/day: 1 pack/day for 20.0 years (20.0 ttl pk-yrs) Types: Cigarettes Start date: 01/24/1995 Quit date: 01/24/2015 Years since quittin.3 Smokeless tobacco: Current Substance and Sexual Activity Alcohol use: No Drug use: Yes Comment: marijuana and valium admission for use from pt. Sexual activity: Not on file ALLERGIES Allergen Reactions Grass Pollen Swelling, Itching Pollen Itching itching or watery eyes Review of Systems Constitutional: Negative for chills and fever. Respiratory: Positive for chest tightness. Negative for choking and shortness of breath. Cardiovascular: Negative for chest pain. Gastrointestinal: Positive for nausea. Negative for abdominal distention, abdominal pain and vomiting. Genitourinary: Negative for dysuria and hematuria. Skin: Negative for rash. Neurological: Positive for headaches. Negative for weakness and light-headedness. Physical Exam Vitals [05/29/24 1257] BP Pulse Temp Temp src Resp SpO2 Weight Height 146/87 (!) 130 36.7 ?C (98 ?F) Oral 20 98 % 100.2 kg (220 lb 14.4 oz) -- Physical Exam Constitutional: Appearance: Normal appearance. Cardiovascular: Rate and Rhythm: Normal rate and regular rhythm. Pulmonary: Effort: Pulmonary effort is normal. Breath sounds: Normal breath sounds. Abdominal: Palpations: Abdomen is soft. Tenderness: There is no abdominal tenderness. Musculoskeletal: General: Normal range of motion. Skin: General: Skin is warm and dry. Neurological: Mental Status: She is alert and oriented to person, place, and time. Motor: No weakness. Diagnostic Testing ED Labs Ordered and Reviewed COMPLETE BLOOD COUNT AND DIFFERENTIAL - Abnormal; Notable for the following components: Result Value Ref Range WBC 12.11 (*) 3.70 - 11.00 k/uL Abs Neut 7.62 (*) 1.45 - 7.50 k/uL Abs Eosin 0.70 (*) <0.46 k/uL All other components within normal limits COMPREHENSIVE METABOLIC PANEL - Abnormal; Notable for the following components: Glucose 302 (*) 74 - 99 mg/dL Sodium 135 (*) 136 - 144 mmol/L Chloride 96 (*) 98 - 107 mmol/L All other components within normal limits TOXICOLOGY SCREEN, ROUTINE URINE - Abnormal; Notable for the following components: Benzodiazepines Urine Positive (*) Negative Cannabinoids, Urine Positive (*) Negative Opiates Urine Positive (*) Negative All other components within normal limits Narrative: Immunoassay screen only. Cross reactivity with other substances can occur with immunoassay screening. Detection of any drug(s) in this urine toxicology panel is presumptive only. These tests are for medical purposes only and should not be used for compliance monitoring, legal, or forensic use. Samples should be within normal physiological conditions (e.g. pH). This assay does not include adulteration/sp (more content not included)... Normal [facility] Fibrin D-dimer FEU (PPP) [Ma ss/Vol]on 05-29-2024 Fibrin D-dimer DDU IA (Bld) [Mass/Vol] 215 ng/mL DDU Normal <=230 [facility] Comment on above: Order Comment: Speci men Type: BLOOD SPECIMEN Ordering Facility: [facility] Address: [address] [place] [address] Performed By: #### L [id number], 79804-0, 94318-9, 83336-1 #### [facility] CLIA [id number] [address] [place] [address] [place] HIGH SENSITIVITY TROPONIN T (INITIAL)on 05-29-2024 Troponin T.cardiac High sensitivity method [Mass/Vol] 11 ng/L Normal <12 [facility] Comment on above: Order Comment: Speci men Type: BLOOD SPECIMEN Ordering Facility: [facility] Address: [address] [place] [address] Performed By: #### L [id number], 18971-1, 03054-3, 79040-3 #### [facility] CLIA [id number] [address] [place] [address] [place] HIGH SENSITIVITY TROPONIN T (SECOND)on 05-29-2024 Troponin T.cardiac High sensitivity method [Mass/Vol] 8 ng/L Normal <12 [facility] Comment on above: Order Comment: Speci men Type: BLOOD SPECIMEN Ordering Facility: [facility] Address: [address] [place] [address] Performed By: #### L [id number], 56145-4, 66496-5, 16840-4 #### [facility] CLIA [id number] [address] [place] [address] [place] HIGH SENSITIVITY TROPONIN T (THIRD) 3 HRS AFTER INITIALon 05-29-2024 Troponin T.cardiac High sensitivity method [Mass/Vol] 9 ng/L Normal <12 [facility] Comment on above: Order Comment: Speci men Type: BLOOD SPECIMEN Ordering Facility: [facility] Address: [address] [place] [address] Performed By: #### L [id number], 40265-6, 57067-6, 70278-2 #### [facility] CLIA [id number] [address] [place] [address] [place] Magnesium SerPl-mCncon 05-29 Magnesium [Mass/Vol] 2.0 mg/dL Normal 1.7-2.3 [facility] Comment on above: Order Comment: Speci men Type: BLOOD SPECIMEN Ordering Facility: [facility] Address: [address] [place] [address] Performed By: #### L [id number], 71122-0, 52526-0, 53424-8 #### [facility] CLIA [id number] [address] [place] [address] [place] NT-proBNP SerPl-mCncon 05-29 Natriuretic peptide.B prohormone N-Terminal [Mass/Vol] <36 Normal <125 [facility] Comment on above: Order Comment: Speci men Type: BLOOD SPECIMEN Ordering Facility: [facility] Address: [address] [place], [place] [address] Performed By: #### L [id number], 55879-9, 54199-2, 88262-4 #### [facility] CLIA [id number] [address] [place] [address] [place] TOXICOLOGY SCREEN, ROUTINE U RINEon 05-29-2024 Amphetamines Confirm (U) [Mass/Vol] Negative Normal Negative [facility] Comment on above: Order Comment: Speci men Type: BLOOD SPECIMEN Ordering Facility: [facility] Address: [address] [place] [address] Result Comment: Cuto ff threshold at 1000 ng/mL. Performed By: #### L [id number], 56295-3, 35431-9, 60120-0 #### [facility] CLIA [id number] [address] [place] [address] [place] BARBITURATES, URINE Negative Normal Negative [facility] Comment on above: Order Comment: Speci men Type: BLOOD SPECIMEN Ordering Facility: [facility] Address: [address] [place] [address] Result Comment: Cuto ff threshold at 200 ng/mL. Performed By: #### L [id number], 23556-5, 81914-6, 50656-6 #### [facility] CLIA [id number] [address] [place] [address] [place] BENZODIAZEPINES, UR Positive Abnormal Negative [facility] Comment on above: Order Comment: Speci men Type: BLOOD SPECIMEN Ordering Facility: [facility] Address: [address] [place] [address] Result Comment: Cuto ff threshold at 200 ng/mL. Performed By: #### L [id number], 19505-8, 80209-2, 71904-0 #### [facility] CLIA [id number] [address] [place] [address] [place] Cannabinoids Screen Ql (U) Positive Abnormal Negative [facility] Comment on above: Order Comment: Speci men Type: BLOOD SPECIMEN Ordering Facility: [facility] Address: [address] [place] [address] Result Comment: Cuto ff threshold at 50 ng/mL. Performed By: #### L [id number], 84193-0, 79638-2, 75485-5 #### [facility] CLIA [id number] [address] [place] [address] [place] Cocaine Ql (U) Negative Normal Negative [facility] Comment on above: Order Comment: Speci men Type: BLOOD SPECIMEN Ordering Facility: [facility] Address: [address] [place] [address] Result Comment: Cuto ff threshold at 300 ng/mL. Performed By: #### L [id number], 19598-6, 26778-4, 97217-9 #### [facility] CLIA [id number] [address] [place] [address] [place] Opiates Screen Ql (U) Positive Abnormal Negative [facility] Comment on above: Order Comment: Speci men Type: BLOOD SPECIMEN Ordering Facility: [facility] Address: [address] [place] [address] Result Comment: Cuto ff threshold at 300 ng/mL. Performed By: #### L [id number], 71217-3, 80847-7, 57278-3 #### [facility] CLIA [id number] [address] [place] [address] [place] oxyCODONE cutoff Screen (U) [Mass/Vol] Negative Normal Negative [facility] Comment on above: Order Comment: Speci men Type: BLOOD SPECIMEN Ordering Facility: [facility] Address: [address] [place] [address] Result Comment: Cuto ff threshold at 100 ng/mL. Performed By: #### L [id number], 30194-3, 49662-7, 60627-3 #### [facility] CLIA [id number] [address] [place] [address] [place] Phencyclidine Ql (U) Negative Normal Negative [facility] Comment on above: Order Comment: Speci men Type: BLOOD SPECIMEN Ordering Facility: [facility] Address: [address] [place] [address] Result Comment: Cuto ff threshold at 25 ng/mL. Performed By: #### L [id number], 05132-5, 00569-6, 49792-4 #### [facility] CLIA [id number] [address] [place] [address] [place] TSH SerPl-aCncon 05-29-2024 TSH Qn 2.210 m[IU]/L Normal 0.270-4.200 [facility] Comment on above: Order Comment: Speci men Type: BLOOD SPECIMEN Ordering Facility: [facility] Address: [address] [place] [address] Result Comment: If t he patient is , TSH reference range varies by gestational period: First Trimester (weeks 9-12): 0.180-2.990 mIU/L Second Trimester: 0.110-3.980 mIU/L Third Trimester: 0.480-4.710 mIU/L Mendel Pedraza et al. A Practical Approach for the Verifications and Determination of Site- and Trimester-Specific Reference Intervals for Thyroid Function tests in . Thyroid, 2019:29:3:412-420. Kenny Paniagua, et al. 2017 Guidelines of the [place] [employer] for the Diagnosis and Management of Thyroid Disease during and the . Thyroid, 2017:27:3:315-389. Performed By: #### L [id number], 88560-8, 19912-3, 39985-9 #### [facility] CLIA [id number] [address] [place] [address] [place] XR CHEST 1V FRONTAL PORTon 0 05-29-2024 XR CHEST 1V FRONTAL PORT * * *Final Report* * * DATE OF EXAM: May 29 2024 2:07PM UDX [id number] - XR CHEST 1V FRONTAL PORT / PROCEDURE REASON: Chest pain * * * * Physician Interpretation * * * * EXAMINATION: CHEST RADIOGRAPH (PORTABLE SINGLE VIEW AP) Exam Date/Time: 05/29/2024 2:07 PM CLINICAL HISTORY: Chest pain MQ: XCPR_5 Comparison: 05/27/[address], 05/27/2024 chest x-ray RESULT: Lines, tubes, and devices: None. Lungs and pleura: Curvilinear opacities left lung base and right infrahilar region. Costophrenic angles are clear. No pneumothorax. Cardiomediastinal silhouette: Normal cardiomediastinal silhouette. Other: . IMPRESSION: Bibasilar atelectasis. Search Lead: ALBINO Transcribe Date/Time: May 29 2024 3:04P Dictated by : ROSEMARIE GARCÍA MD This examination was interpreted and the report reviewed and electronically signed by: ROSEMARIE GARCÍA MD on May 29 2024 3:05PM EST [id number] N [facility] CBC W Auto Differential pane l (Bld)on 05-27-2024 Basophils (Bld) [#/Vol] 0.13 10*3/uL High <0.11 [facility] Comment on above: Order Comment: Speci men Type: BLOOD SPECIMEN Ordering Facility: [facility] Address: [address] [place] [address] Performed By: #### L [id number], 00849-1, 75363-4, 51499-6 #### [facility] CLIA [id number] [address] [place] [address] [place] Basophils/100 WBC (Bld) 1.0 % Normal [facility] Comment on above: Order Comment: Speci men Type: BLOOD SPECIMEN Ordering Facility: [facility] Address: [address] [place] [address] Performed By: #### L [id number], 41397-3, 84837-7, 32184-9 #### [facility] CLIA [id number] [address] [place] [address] [place] Differential cell count method Nom (Bld) Auto [facility] Comment on above: Order Comment: Speci men Type: BLOOD SPECIMEN Ordering Facility: [facility] Address: [address] [place] [address] Performed By: #### L [id number], 05336-2, 33497-2, 34731-1 #### [facility] CLIA [id number] [address] [place] [address] [place] Eosinophils (Bld) [#/Vol] 1.06 10*3/uL High <0.46 [facility] Comment on above: Order Comment: Speci men Type: BLOOD SPECIMEN Ordering Facility: [facility] Address: [address] [place] [address] Performed By: #### L [id number], 27339-4, 57684-0, 46269-8 #### [facility] CLIA [id number] [address] [place] [address] [place] Eosinophils/100 WBC (Bld) 8.2 % Normal [facility] Comment on above: Order Comment: Speci men Type: BLOOD SPECIMEN Ordering Facility: [facility] Address: [address] [place] [address] Performed By: #### L [id number], 58428-5, 77608-7, 20951-8 #### [facility] CLIA [id number] [address] [place] [address] [place] Erythrocyte distribution width (RBC) [Ratio] 11.7 % Normal 11.5-15.0 [facility] Comment on above: Order Comment: Speci men Type: BLOOD SPECIMEN Ordering Facility: [facility] Address: [address] [place] [address] Performed By: #### L [id number], 57097-3, 28117-5, 54386-0 #### [facility] CLIA [id number] [address] [place] [address] [place] Hematocrit (Bld) [Volume fraction] 41.1 % Normal 36.0-46.0 [facility] Comment on above: Order Comment: Speci men Type: BLOOD SPECIMEN Ordering Facility: [facility] Address: [address] [place] [address] Performed By: #### L [id number], 59787-9, 93809-4, 56620-7 #### [facility] CLIA [id number] [address] [place] [address] [place] Hemoglobin (Bld) [Mass/Vol] 14.3 g/dL Normal 11.5-15.5 [facility] Comment on above: Order Comment: Speci men Type: BLOOD SPECIMEN Ordering Facility: [facility] Address: [address] [place] [address] Performed By: #### L [id number], 88034-2, 36066-7, 57051-8 #### [facility] CLIA [id number] [address] [place] [address] [place] Immature granulocytes (Bld) [#/Vol] 0.07 10*3/uL Normal <0.10 [facility] Comment on above: Order Comment: Speci men Type: BLOOD SPECIMEN Ordering Facility: [facility] Address: [address] [place] [address] Performed By: #### L [id number], 94052-3, 03290-2, 78180-0 #### [facility] CLIA [id number] [address] [place] [address] [place] Immature granulocytes/100 WBC (Bld) 0.5 % Normal [facility] Comment on above: Order Comment: Speci men Type: BLOOD SPECIMEN Ordering Facility: [facility] Address: [address] [place] [address] Performed By: #### L [id number], 64768-8, 17901-2, 29832-4 #### [facility] CLIA [id number] [address] [place] [address] [place] Lymphocytes (Bld) [#/Vol] 3.59 10*3/uL Normal 1.00-4.00 [facility] Comment on above: Order Comment: Speci men Type: BLOOD SPECIMEN Ordering Facility: [facility] Address: [address] [place] [address] Performed By: #### L [id number], 97159-2, 13566-0, 01055-1 #### [facility] CLIA [id number] [address] [place] [address] [place] Lymphocytes/100 WBC (Bld) 27.7 % Normal [facility] Comment on above: Order Comment: Speci men Type: BLOOD SPECIMEN Ordering Facility: [facility] Address: [address] [place] [address] Performed By: #### L [id number], 72824-2, 84807-8, 02168-3 #### [facility] CLIA [id number] [address] [place] [address] [place] MCH (RBC) [Entitic mass] 31.2 pg Normal 26.0-34.0 [facility] Comment on above: Order Comment: Speci men Type: BLOOD SPECIMEN Ordering Facility: [facility] Address: [address] [place] [address] Performed By: #### L [id number], 99484-9, 40738-5, #### [facility] CLIA [id number] [address] [place] [address] [place] MCHC (RBC) [Mass/Vol] 34.8 g/dL Normal 30.5-36.0 [facility] Comment on above: Order Comment: Speci men Type: BLOOD SPECIMEN Ordering Facility: [facility] Address: [address] [place] [address] Performed By: #### L [id number], , 75890-8, #### [facility] CLIA [id number] [address] [place] [address] [place] MCV (RBC) [Entitic vol] 89.5 fL Normal 80.0-100.0 [facility] Comment on above: Order Comment: Speci men Type: BLOOD SPECIMEN Ordering Facility: [facility] Address: [address] [place] [address] Performed By: #### L [id number], , 91359-7, #### [facility] CLIA [id number] [address] [place] [address] Monocytes (Bld) [#/Vol] 0.63 10*3/uL Normal <0.87 [facility] Comment on above: Order Comment: Speci men Type: BLOOD SPECIMEN Ordering Facility: [facility] Address: [address] [place] [address] Performed By: #### L [id number], 98751-3, 97964-8, #### [facility] CLIA [id number] [address] [place] [address] [place] Monocytes/100 WBC (Bld) 4.9 % Normal [facility] Comment on above: Order Comment: Speci men Type: BLOOD SPECIMEN Ordering Facility: [facility] Address: [address] [place] [address] Performed By: #### L [id number], 62059-2, 47648-1, 93473-2 #### [facility] CLIA [id number] [address] [place] [address] [place] Neutrophils (Bld) [#/Vol] 7.47 10*3/uL Normal 1.45-7.50 [facility] Comment on above: Order Comment: Speci men Type: BLOOD SPECIMEN Ordering Facility: [facility] Address: [address] [place] [address] Performed By: #### L [id number], 57103-4, 93021-8, 24559-1 #### [facility] CLIA [id number] [address] [place] [address] [place] Neutrophils/100 WBC (Bld) 57.7 % Normal [facility] Comment on above: Order Comment: Speci men Type: BLOOD SPECIMEN Ordering Facility: [facility] Address: [address] [place] [address] Performed By: #### L [id number], 20868-5, 14330-9, 16388-2 #### [facility] CLIA [id number] [address] [place] [address] [place] Nucleated RBC (Bld) [#/Vol] 10*3/uL Normal <0.01 [facility] Comment on above: Order Comment: Speci men Type: BLOOD SPECIMEN Ordering Facility: [facility] Address: [address] [place] [address] Performed By: #### L [id number], 07056-2, 91730-8, 62969-9 #### [facility] CLIA [id number] [address] [place] [address] [place] Nucleated RBC/100 WBC (Bld) [Ratio] 0.0 /100 WBC Normal [facility] Comment on above: Order Comment: Speci men Type: BLOOD SPECIMEN Ordering Facility: [facility] Address: [address] [place] [address] Performed By: #### L [id number], 26514-8, 45786-7, 22948-7 #### [facility] CLIA [id number] [address] [place] [address] [place] Platelet mean volume (Bld) [Entitic vol] 10.5 fL Normal 9.0-12.7 [facility] Comment on above: Order Comment: Speci men Type: BLOOD SPECIMEN Ordering Facility: [facility] Address: [address] [place] [address] Performed By: #### L [id number], 92777-7, 36708-7, 67066-2 #### [facility] CLIA [id number] [address] [place] [address] [place] Platelets (Bld) [#/Vol] 294 10*3/uL Normal 150-400 [facility] Comment on above: Order Comment: Speci men Type: BLOOD SPECIMEN Ordering Facility: [facility] Address: [address] [place] [address] Performed By: #### L [id number], 82806-4, 69006-7, 74973-4 #### [facility] CLIA [id number] [address] [place] [address] [place] RBC (Bld) [#/Vol] 4.59 10*6/uL Normal 3.90-5.20 [facility] Comment on above: Order Comment: Speci men Type: BLOOD SPECIMEN Ordering Facility: [facility] Address: [address] [place] [address] Performed By: #### L [id number], 12688-2, 69409-2, 64406-8 #### [facility] CLIA [id number] [address] [place] [address] [place] WBC (Bld) [#/Vol] 12.95 10*3/uL High 3.70-11.00 [facility] Comment on above: Order Comment: Speci men Type: BLOOD SPECIMEN Ordering Facility: [facility] Address: [address] [place] [address] [place] [address] Performed By: #### L [id number], 89709-6, 82738-1, 92224-0 #### [facility] CLIA [id number] [address] [place] [address] [place] CHEST W IVCON PEon 2023 CT CHEST W IVCON PE * * *Final Report* * * DATE OF EXAM: May 27 2024 8:01PM [facility] 0540 - CT CHEST W IVCON PE / PROCEDURE REASON: Pulmonary embolism (PE) suspected, high prob * * * * Physician Interpretation * * * * EXAMINATION: CT CHEST W IVCON PE Exam Date/Time: 05/27/2024 8:01 PM CLINICAL HISTORY: Pulmonary embolism (PE) suspected, high prob TECHNIQUE: Spiral CT acquisition of the chest from the thoracic inlet to the upper abdomen following IV contrast using standard protocol with coronal and sagittal reformatted images. Contrast: 100 mL Omnipaque [address] Radiation dose: Integrated Dose-length product (DLP) for this visit = 336.6 mGy*cm CT Dose Reduction Employed: Automated exposure control(AEC) and iterative recon COMPARISON: 01/10/2014 RESULT: Limitations: None. Evaluation for thromboembolic disease: No filling defects to suggest acute pulmonary embolism. The central pulmonary arteries are within normal size limits. Heart, pericardium, and thoracic vessels: The heart is within normal size limits. No significant pericardial effusion. No thoracic aortic aneurysm. Lower neck, lymph nodes, and mediastinum: No pathologically enlarged lymph nodes in the chest. Visualized thyroid gland is unremarkable. No acute mediastinal process. Lung parenchyma, pleura, and airways: Patent central airways. Minimal mosaic pattern of groundglass opacities in the bilateral lower lobes with minimal airway thickening. 5.5 mm superior segment left lower lobe nodule (axial image 185), previously 4 mm. Favor benign finding. Recommend attention on follow-up. No consolidations or edema. No suspicious pulmonary nodules. No pleural effusions. No pneumothorax. Upper abdomen: No acute abnormality. Cholecystectomy. Bones/Soft tissues: No acute findings. IMPRESSION: No acute pulmonary embolism. Minimal bilateral lower lobe airway thickening and findings suggestive of air trapping. This could represent mild bronchitis/bronchioli tis or reactive airway process. Search Lead: ALBINO Transcribe Date/Time: May 27 2024 8:33P Dictated by : ANIA TURNER MD This examination was interpreted and the report reviewed and electronically signed by: ANIA TURNER MD on May 27 2024 8:37PM EST [id number] N Normal [facility] Comprehensive metabolic 2000 panelon 05-27-2024 Albumin [Mass/Vol] 4.3 g/dL Normal 3.9-4.9 [facility] Comment on above: Order Comment: Speci men Type: BLOOD SPECIMEN Ordering Facility: [facility] Address: [address] [place] [address] Performed By: #### L [id number], 15816-1, 78217-2, 52314-9 #### [facility] CLIA [id number] [address] [place] [address] [place] ALP [Catalytic activity/Vol] 104 U/L Normal 34-123 [facility] Comment on above: Order Comment: Speci men Type: BLOOD SPECIMEN Ordering Facility: [facility] Address: [address] [place] [address] Performed By: #### L [id number], 39648-4, 49974-6, 10314-5 #### [facility] CLIA [id number] [address] [place] [address] [place] ALT [Catalytic activity/Vol] 26 U/L Normal 7-38 [facility] Comment on above: Order Comment: Speci men Type: BLOOD SPECIMEN Ordering Facility: [facility] Address: [address] [place] [address] Performed By: #### L [id number], 83067-2, 96695-9, 40165-4 #### [facility] CLIA [id number] [address] [place] [address] [place] Anion gap [Moles/Vol] 13 mmol/L Normal 8-15 [facility] Comment on above: Order Comment: Speci men Type: BLOOD SPECIMEN Ordering Facility: [facility] Address: [address] [place] [address] Performed By: #### L [id number], 35608-7, 92230-5, 45049-2 #### [facility] CLIA [id number] [address] [place] [address] [place] AST [Catalytic activity/Vol] 26 U/L Normal 13-35 [facility] Comment on above: Order Comment: Speci men Type: BLOOD SPECIMEN Ordering Facility: [facility] Address: [address] [place] [address] Performed By: #### L [id number], 32071-3, 85829-1, 48513-8 #### [facility] CLIA [id number] [address] [place] [address] [place] Bilirubin [Mass/Vol] mg/dL Low 0.2-1.3 [facility] Comment on above: Order Comment: Speci men Type: BLOOD SPECIMEN Ordering Facility: [facility] Address: [address] [place] [address] Performed By: #### L [id number], , 42267-8, 36342-4 #### [facility] CLIA [id number] [address] [place] [address] [place] Calcium [Mass/Vol] 10.0 mg/dL Normal 8.5-10.2 [facility] Comment on above: Order Comment: Speci men Type: BLOOD SPECIMEN Ordering Facility: [facility] Address: [address] [place] [address] Performed By: #### L [id number], 03983-7, 24596-4, 30700-7 #### [facility] CLIA [id number] [address] [place] [address] [place] Chloride [Moles/Vol] 100 mmol/L Normal 98-107 [facility] Comment on above: Order Comment: Speci men Type: BLOOD SPECIMEN Ordering Facility: [facility] Address: [address] [place] [address] Performed By: #### L [id number], 51336-1, 25009-1, 82375-1 #### [facility] CLIA [id number] [address] [place] [address] [place] CO2 [Moles/Vol] 23 mmol/L Normal 22-30 [facility] Comment on above: Order Comment: Hue rizzo Type: BLOOD SPECIMEN Ordering Facility: [facility] Address: [address] [place] [address] Performed By: #### L [id number], 88634-0, 88535-7, 55572-1 #### [facility] CLIA [id number] [address] [place] [address] [place] Creatinine [Mass/Vol] 0.83 mg/dL Normal 0.58-0.96 [facility] Comment on above: Order Comment: Hue rizzo Type: BLOOD SPECIMEN Ordering Facility: [facility] Address: [address] [place] [address] Performed By: #### L [id number], 61865-9, 50068-5, 69376-6 #### [facility] CLIA [id number] [address] [place] [address] [place] Creatinine and Glomerular filtration rate.predicted panel (S/P/Bld) 86 mL/min/1.73m??? Normal >=60 [facility] Comment on above: Order Comment: Hue rizzo Type: BLOOD SPECIMEN Ordering Facility: [facility] Address: [address] [place] [address] Result Comment: Payton mated Glomerular Filtration Rate (eGFR) is calculated using the 2020 CKD-EPI creatinine equation. This equation utilizes serum creatinine, sex, and age as parameters. The creatinine assay has traceable calibration to isotope dilution-mass spectrometry. Refer to KDIGO guidelines for clinical interpretation. In patients with unstable renal function, e.g. those with acute kidney injury, the eGFR may not accurately reflect actual GFR. Performed By: #### L [id number], 32323-8, 95168-0, 51189-0 #### [facility] CLIA [id number] [address] [place] [address] [place] Glucose [Mass/Vol] 200 mg/dL High 74-99 [facility] Comment on above: Order Comment: Hue rizzo Type: BLOOD SPECIMEN Ordering Facility: [facility] Address: [address] [id number] Result Comment: The [place] Diabetes Association (ADA) provides guidance for cutoff values for fasting glucose and random glucose. The ADA defines fasting as no caloric intake for at least 8 hours. Fasting plasma glucose results between 100 to 125 mg/dL indicate increased risk for diabetes (prediabetes). Fasting plasma glucose results greater than or equal to 126 mg/dL meet the criteria for diagnosis of diabetes. In the absence of unequivocal hyperglycemia, results should be confirmed by repeat testing. In a patient with classic symptoms of hyperglycemia or hyperglycemic crisis, random plasma glucose results greater than or equal to 200 mg/dL meet the criteria for diagnosis of diabetes. Reference: Standards of Medical Care in Diabetes 2016, [place] [employer] Association. Diabetes Care. 2016.39(Suppl 1). Performed By: #### L [id number], 41858-0, 41471-0, 14152-7 #### [facility] CLIA [id number] [address] [place] [address] [place] Potassium [Moles/Vol] 3.9 mmol/L Normal 3.7-5.1 [facility] Comment on above: Order Comment: Speci men Type: BLOOD SPECIMEN Ordering Facility: [facility] Address: [address] [place] [address] Performed By: #### L [id number], 06726-9, 43995-1, 38872-8 #### [facility] CLIA [id number] [address] [place] [address] [place] Protein [Mass/Vol] 7.7 g/dL Normal 6.3-8.0 [facility] Comment on above: Order Comment: Speci men Type: BLOOD SPECIMEN Ordering Facility: [facility] Address: [address] [place] [address] Performed By: #### L [id number], 93549-1, 39051-3, 00022-2 #### [facility] CLIA [id number] [address] [place] [address] [place] Sodium [Moles/Vol] 136 mmol/L Normal 136-144 [facility] Comment on above: Order Comment: Speci men Type: BLOOD SPECIMEN Ordering Facility: [facility] Address: [address] [id number] Performed By: #### L [id number], 64580-6, 23007-9, 42211-3 #### [facility] CLIA [id number] [address] [place] [address] [facility] Urea nitrogen [Mass/Vol] 17 mg/dL Normal 7- [facility] Comment on above: Order Comment: Speci men Type: BLOOD SPECIMEN Ordering Facility: [facility] Address: [address] [id number] Performed By: #### L [id number], 56815-0, 98629-3, 05026-8 #### [facility] CLIA [id number] [address] [place] [address] OF [facility] ECG COMPLETEon 05-27-2024 ECG COMPLETE Ventricular Rate : 107 BPM Atrial Rate : 107 BPM P-R Interval : 146 ms QRS Duration : 88 ms Q-T Interval : 346 ms QTC Calculation(Bazett) : 461 ms Calculated P Lom[place] : 62 degrees Calculated R [place] : 72 degrees Calculated T [place] : 50 degrees Sinus tachycardia Possible Left atrial enlargement Borderline ECG No previous ECGs available Confirmed by GLADIS CUELLO MD ([id number]) on 05/31/2024 3:24:11 PM NAME : KARLIE GOVEA PID : [id number] : 1975 Gender : Female Race : ORD : [id number] Procedure Date : May 27 2024 16:12:12 Edit Date : May 31 2024 15:24:14 Diagnosis: Sinus tachycardia Possible Left atrial enlargement Borderline ECG No previous ECGs available Confirmed by GLADIS CUELLO MD ([id number]) on 05/31/2024 3:24:11 PM Test Reason : HCS Location : 3 : ED Overread By : GLADIS CUELLO MD Edited By : GLADIS CUELLO MD Referred By : , Acquired by : [facility] ED NOTEon 05-27-2024 ED NOTE HNO ID: [id number] Author: MARINO QUIROGA RN Service: ? Author Type: Registered Nurse Type: ED Notes Filed: 05/27/2024 17:36 Note Text: Pt to ED 16 from ED lobby after triage and protocol orders. Ambulated with steady gait, Ambulated to bathroom to void, then to ED 16. Placed in gown, on nurse practical, NIBBP, cont SPO2. States increased pain to chest with ambulation/exertion. ED Physician Dr Henderson at bedside to assess pt and discuss plan of care. [facility] ED PROV NOTEon 05-27-2024 ED PROV NOTE HNO ID: [id number] Author: RADHA HENDERSON MD Service: ? Author Type: Physician Type: ED Provider Notes Filed: 05/27/2024 20:52 Note Text: ED Provider Note Patient Name: Karlie Govea : 1975 SERVICE DATE: 05/27/24 History Patient presents with: Chest Pain: PT STI noticed my heart rate was high and I started to have chest pain. My heart rate had been in the 130s The patient is a very nice 49-year-old female who was having a rapid heart rate and started to have some chest pain at work at a [employer]. Said her heart rate has been up in the 130s at times. She has not had any fevers or chills or productive cough but she has had a little bit of congestion. She has not had any vomiting or diarrhea. She does states that she has some increased pain in her chest with ambulation and exertion. She also has increase in pain with palpation and certain movements. No leg pain or leg swelling. No hemoptysis. No productive cough. No other complaints at this time and review of systems otherwise negative. PAST MEDICAL HISTORY Diagnosis Date - Breast cancer (HCC) mastectomy 2010. - Coccygeal fracture (HCC) - Lumbar disc disease - Migraines PAST SURGICAL HISTORY Procedure Laterality Date - CHOLECYSTECTOMY Cholecystectomy - MAST RAD W/PECTORAL MUSCLES AXILLARY LYMPH NODES 2010 bilateral - [place] - RPR 1ST INGUN HRNA AGE 5 YRS/> REDUCIBLE Hernia repair, inguinal - right - TOTAL ABDOMINAL HYSTERECT W/WO RMVL TUBE OVARY 1999 Hysterectomy, MARY - pt has one ovary - FAMILY HISTORY Problem Relation Age of Onset - Cancer Mother lung and brain - Stroke Mother - Arthritis Mother - Alzheimer's Disease Father - Diabetes Father - Hypertension Father 7 stents - Cancer Maternal Grandmother Uterine - Cancer Maternal Uncle Colon - Cancer Paternal Uncle Prostate - Cancer Maternal Aunt Lung Social History Tobacco Use - Smoking status: Former Current packs/day: 0.00 Average packs/day: 1 pack/day for 20.0 years (20.0 ttl pk-yrs) Types: Cigarettes Start date: 01/24/1995 Quit date: 01/24/2015 Years since quittin.3 - Smokeless tobacco: Current Substance and Sexual Activity - Alcohol use: No - Drug use: Yes Comment: marijuana and valium admission for use from pt. - Sexual activity: Not on file ALLERGIES Allergen Reactions - Grass Pollen Swelling, Itching - Pollen Itching itching or watery eyes Review of Systems All other systems reviewed and are negative. Physical Exam Vitals [05/27/24 1601] BP Pulse Temp Temp src Resp SpO2 Weight Height 147/109 (!) 122 36.8 ?C (98.3 ?F) Oral 20 99 % 102.3 kg (225 lb 8.5 oz) 1.753 m (5' 9) Physical Exam Constitutional: Appearance: She is well-developed. HENT: Head: Normocephalic and atraumatic. Eyes: Pupils: Pupils are equal, round, and reactive to light. Cardiovascular: Rate and Rhythm: Regular rhythm. Tachycardia present. Heart sounds: Normal heart sounds. Pulmonary: Effort: Pulmonary effort is normal. Breath sounds: Normal breath sounds. No wheezing. Chest: Chest wall: Tenderness present. Comments: The patient has tenderness palpation over the left costochondral border about second and third ribs which is fairly marked on exam Abdominal: General: Bowel sounds are normal. Palpations: Abdomen is soft. Tenderness: There is no abdominal tenderness. There is no guarding. Musculoskeletal: General: Normal range of motion. Cervical back: Normal range of motion. Skin: General: Skin is warm and dry. Capillary Refill: Capillary refill takes less than 2 seconds. Neurological: General: No focal deficit present. Mental Status: She is alert. Psychiatric: Mood and Affect: Mood normal. Diagnostic Testing ED Labs Ordered and Reviewed COMPLETE BLOOD COUNT AND DIFFERENTIAL - Abnormal; Notable for the following components: Result Value Ref Range WBC 12.95 (*) 3.70 - 11.00 k/uL Abs Eosin 1.06 (*) <0.46 k/uL Abs Baso 0.13 (*) <0.11 k/uL All other components within normal limits COMPREHENSIVE METABOLIC PANEL - Abnormal; Notable for the following components: Bilirubin, Total <0.2 (*) 0.2 - 1.3 mg/dL Glucose 200 (*) 74 - 99 mg/dL All other components within normal limits HIGH SENSITIVITY TROPONIN T (INITIAL) - Abnormal; Notable for the following components: JOSIE High Sensitivity 13 (*) <12 ng/L All other components within normal limits D-DIMER - Abnormal; Notable for the following components: D Dimer 234 (*) <=230 ng/mL DDU All other components within normal limits Narrative: The cut-off level recommended for the exclusion of pulmonary embolism (PE) or deep vein thrombosis (DVT) is <= 230 ng/mL DDU. URINALYSIS WITH MICROSCOPIC, REFLEX CULTURE - Abnormal; Notable for the following components: Glucose, Urine 1+ (*) Negative Protein, Urine Trace (*) Negative All other components within normal limits GLUCOSE, BLOOD (POC) - Abnormal; No (more content not included)... [facility] ED Triage Noteon 05-27-2024 ED Triage Note HNO ID: [id number] Author: SUNDAY CALLEJAS APRN.CNP Service: Emergency Medicine Author Type: Nurse Practitioner Type: ED Triage Notes Filed: 05/27/2024 16:05 Note Text: ED TRIAGE PROVIDER NOTE Patient Name: Karlie Govea Service Date: 05/27/24 BRIEF HPI: This is a 49 year old female who presents to the ED with: elevated heart rate of 130-140's with sharp chest pain, chest heaviness, shortness of breath, sweating, headache and nausea for the past 3 days. Denies fever or chills. Denies abdominal pain, vomiting or diarrhea. BRIEF EXAM: NAD Awake and Alert Non labored breathing No focal neurological deficits INITIAL WORKUP AND DECISION MAKING: Orders Placed This Encounter XR CHEST 1V FRONTAL PORT Complete Blood Count and Differential Comprehensive Metabolic Panel Magnesium Blood High Sensitivity Troponin T with Reflex for ED Chest Pain B Natriuretic Peptide (PROBNP N-TERMINAL) ECG Complete w Interpretation - hand to Attending for review (EKG) SIGNATURE: Sunday Callejas APRN.CHRISTINA [facility] Fibrin D-dimer FEU (PPP) [Ma ss/Vol]on 05-27-2024 Fibrin D-dimer DDU IA (Bld) [Mass/Vol] 234 ng/mL DDU High <=230 [facility] Comment on above: Order Comment: Speci men Type: BLOOD SPECIMEN Ordering Facility: [facility] Address: [address] [place] [address] Performed By: #### 4 8065-7 #### [facility] CLIA [id number] [address] [place] [address] [place] HIGH SENSITIVITY TROPONIN T (INITIAL)on 05-27-2024 Troponin T.cardiac High sensitivity method [Mass/Vol] 13 ng/L High <12 [facility] Comment on above: Order Comment: Speci men Type: BLOOD SPECIMEN Ordering Facility: [facility] Address: [address] [place] [address] Performed By: #### L [id number], 39561-6, 71684-5, 35642-9 #### [facility] CLIA [id number] [address] [place] [address] [place] HIGH SENSITIVITY TROPONIN T (SECOND)on 05-27-2024 Troponin T.cardiac High sensitivity method [Mass/Vol] 8 ng/L Normal <12 [facility] Comment on above: Order Comment: Speci men Type: BLOOD SPECIMEN Ordering Facility: [facility] Address: [address] [place] [address] Performed By: #### L [id number] #### [facility] CLIA [id number] [address] [place] [address] [place] HIGH SENSITIVITY TROPONIN T (THIRD) 3 HRS AFTER INITIALon 05-27-2024 Troponin T.cardiac High sensitivity method [Mass/Vol] 9 ng/L Normal <12 [facility] Comment on above: Order Comment: Speci men Type: BLOOD SPECIMEN Ordering Facility: [facility] Address: [address] [place] [address] Performed By: #### L [id number], 92449-2, 69838-9, 54569-3 #### [facility] CLIA [id number] [address] [place] [address] [place] Magnesium SerPl-mCncon 05-27 Magnesium [Mass/Vol] 1.9 mg/dL Normal 1.7-2.3 [facility] Comment on above: Order Comment: Speci men Type: BLOOD SPECIMEN Ordering Facility: [facility] Address: [address] [place] [address] Performed By: #### L [id number], 86931-4, 03640-1, 68384-9 #### [facility] CLIA [id number] [address] [place] [address] [place] NT-proBNP SerPl-mCncon 05-27 Natriuretic peptide.B prohormone N-Terminal [Mass/Vol] <36 Normal <125 [facility] Comment on above: Order Comment: Speci men Type: BLOOD SPECIMEN Ordering Facility: [facility] Address: [address] [place] [address] Performed By: #### L [id number], 56242-3, 38231-6, 88813-0 #### [facility] CLIA [id number] [address] [place] [address] [place] SEPSIS LACTATEon 05-27-2024 Lactate [Moles/Vol] 1.6 mmol/L Normal 0.0-2.0 [facility] Comment on above: Order Comment: Speci men Type: BLOOD SPECIMEN Ordering Facility: [facility] Address: [address] [place] [address] Performed By: #### L [id number], 26660-2, 13913-3, 89802-5 #### [facility] CLIA [id number] [address] [place] [address] [place] Urinalysis complete panel (U )on 05-27-2024 Bilirubin Ql (U) Negative Normal Negative [facility] Comment on above: Order Comment: Speci men Type: BLOOD SPECIMEN Ordering Facility: [facility] Address: [address] [place] [address] Performed By: #### L [id number], 38470-4, 76931-5, 28232-5 #### [facility] CLIA [id number] [address] [place] [address] [place] Clarity (Unsp spec) Clear Normal Clear [facility] Comment on above: Order Comment: Speci men Type: BLOOD SPECIMEN Ordering Facility: [facility] Address: [address] [place] [address] Performed By: #### L [id number], 45426-3, 27710-5, 38277-9 #### [facility] CLIA [id number] [address] [place] [address] [place] Color (U) Yellow Normal Yellow [facility] Comment on above: Order Comment: Speci men Type: BLOOD SPECIMEN Ordering Facility: [facility] Address: [address] [place] [address] Performed By: #### L [id number], 54019-0, 74740-3, 01227-2 #### [facility] CLIA [id number] [address] [place] [address] [place] Glucose Test strip (U) [Mass/Vol] 1+ Abnormal Negative [facility] Comment on above: Order Comment: Speci men Type: BLOOD SPECIMEN Ordering Facility: [facility] Address: [address] [place] [address] Performed By: #### L [id number], 19595-1, 77062-3, 32688-0 #### [facility] CLIA [id number] [address] [place] [address] [place] Hemoglobin Ql (U) Negative Normal Negative [facility] Comment on above: Order Comment: Speci men Type: BLOOD SPECIMEN Ordering Facility: [facility] Address: [address] [place] [address] Performed By: #### L [id number], 38454-6, 82580-1, 17564-5 #### [facility] CLIA [id number] [address] [place] [address] [place] Ketones Ql (U) Negative Normal Negative [facility] Comment on above: Order Comment: Speci men Type: BLOOD SPECIMEN Ordering Facility: [facility] Address: [address] [place] [address] Performed By: #### L [id number], 69315-3, 87272-5, 53959-3 #### [facility] CLIA [id number] [address] [place] [address] [place] Leukocyte esterase Test strip Ql (U) Negative Normal Negative [facility] Comment on above: Order Comment: Speci men Type: BLOOD SPECIMEN Ordering Facility: [facility] Address: [address] [place] [address] Performed By: #### L [id number], 91585-9, 20670-8, 41264-8 #### [facility] CLIA [id number] [address] [place] [address] [place] Nitrite Ql (U) Negative Normal Negative [facility] Comment on above: Order Comment: Speci men Type: BLOOD SPECIMEN Ordering Facility: [facility] Address: [address] [place] [address] Performed By: #### L [id number], 33999-2, 07633-8, 45466-3 #### [facility] CLIA [id number] [address] [place] [address] [place] pH (U) 6.0 [pH] Normal 5.0-8.0 [facility] Comment on above: Order Comment: Speci men Type: BLOOD SPECIMEN Ordering Facility: [facility] Address: [address] [place] [address] Performed By: #### L [id number], , 26867-2, 13913-0 #### [facility] CLIA [id number] [address] [place] [address] [place] Protein (U) [Mass/Vol] Trace Abnormal Negative [facility] Comment on above: Order Comment: Speci men Type: BLOOD SPECIMEN Ordering Facility: [facility] Address: [address] [place] [address] Performed By: #### L [id number], 54602-7, 36017-8, 13187-0 #### [facility] CLIA [id number] [address] [place] [address] [place] RBC LM.HPF (Urine sed) [#/Area] 0-3 /HPF Normal 0-3 /HPF [facility] Comment on above: Order Comment: Speci men Type: BLOOD SPECIMEN Ordering Facility: [facility] Address: [address] [place] [address] Performed By: #### L [id number], 94487-1, 46877-0, 90930-8 #### [facility] CLIA [id number] [address] [place] [address] [place] Specific gravity (U) [Rel density] 1.025 Normal 1.005-1.030 [facility] Comment on above: Order Comment: Speci men Type: BLOOD SPECIMEN Ordering Facility: [facility] Address: [address] [place], [place] [address] Performed By: #### L [id number], 12465-1, 33131-3, 62304-8 #### [facility] CLIA [id number] [address] [place] [address] [place] Urobilinogen Ql (U) 0.2 EU/dL Normal 0.2-1.0 EU/dL [facility] Comment on above: Order Comment: Speci men Type: BLOOD SPECIMEN Ordering Facility: [facility] Address: [address] [place] [address] Performed By: #### L [id number], 13430-0, 97182-8, 60975-0 #### [facility] CLIA [id number] [address] [place] [address] [place] WBC LM.HPF (Urine sed) [#/Area] 0-5 /HPF Normal 0-5 /HPF [facility] Comment on above: Order Comment: Speci men Type: BLOOD SPECIMEN Ordering Facility: [facility] Address: [address] [place], [place] [address] Performed By: #### L [id number], 24478-1, 88515-9, 40204-7 #### [facility] CLIA [id number] [address] [place] [address] [place] XR CHEST 1V FRONTAL PORTon 0 05-27-2024 XR CHEST 1V FRONTAL PORT * * *Final Report* * * DATE OF EXAM: May 27 2024 4:33PM UDX [id number] - XR CHEST 1V FRONTAL PORT / PROCEDURE REASON: Chest pain * * * * Physician Interpretation * * * * EXAMINATION: CHEST RADIOGRAPH (PORTABLE SINGLE VIEW AP) Exam Date/Time: 05/27/2024 4:33 PM CLINICAL HISTORY: Chest pain MQ: XCPR_5 Comparison: None RESULT: Lines, tubes, and devices: None. Lungs and pleura: No focal consolidation, pleural effusion, or pneumothorax. Cardiomediastinal silhouette: Within normal limits. Bones and soft tissues: No acute osseous abnormality is identified. The imaged upper abdomen is within normal limits. IMPRESSION: No acute cardiopulmonary process. Search Lead: PSCB Transcribe Date/Time: May 27 2024 4:58P Dictated by : TREY KUMAR MD This examination was interpreted and the report reviewed and electronically signed by: TREY KUMAR MD on May 27 2024 4:59PM EST [id number] [facility] XR SHOULDER MINIMUM 2 VIEWS RIGHTon 08-28-2023 XR SHOULDER MINIMUM 2 VIEWS RIGHT ORIGINAL EXAMINATION: TWO XRAY VIEWS OF THE RIGHT PBBDWZLU85/21/2023 7:09 pm COMPARISON: None HISTORY: ORDERING SYSTEM PROVIDED HISTORY: Reason for Exam: trauma FINDINGS: No acute fracture, dislocation, or suspicious osseous lesion. The humeral head is appropriately seated within the glenoid fossa. The acromioclavicular and coracoclavicular relationships are well maintained. Included intrathoracic structures are unremarkable. IMPRESSION: No acute fracture or dislocation. I have personally reviewed the images of this examination and agree with the resident's findings and interpretation. Interpreted by: Ryan Rosario MD Preliminary Report By: Rodriguez Moreira Electronically signed By Ryan Rosario MD Dictated Date: 08/28/2023 7:23:22 PM Prelim Date: 08/28/2023 7:27:13 PM Sign Date: 08/28/2023 7:50:55 PM Ordering Provider: ABI Black [facility] ([place]) XR ELBOW MINIMUM 3 VIEWS RIG HTon 03-21-2023 XR ELBOW MINIMUM 3 VIEWS RIGHT ORIGINAL EXAMINATION: THREE XRAY VIEWS OF THE RIGHT ELBOW 03/21/2023 5:55 pm COMPARISON: None. HISTORY: ORDERING SYSTEM PROVIDED HISTORY: Reason for Exam: pain FINDINGS: No fracture or dislocation. No significant joint fluid. No radiopaque foreign body. Posterior soft tissue swelling. IMPRESSION: No fracture or dislocation. Interpreted by: Ramy Cardoza Preliminary Report By: Ramy Cardoza Electronically signed By Ramy Cardoza Dictated Date: 03/21/2023 6:04:16 PM Prelim Date: 03/21/2023 6:05:27 PM Sign Date: 03/21/2023 6:05:27 PM Ordering Provider: [facility] ([place]) XR TOES 5TH DIGIT 3 VIEWS RI Kalen 03-21-2023 XR TOES 5TH DIGIT 3 VIEWS RIGHT ORIGINAL EXAMINATION: THREE XRAY VIEWS OF THE RIGHT TOE(S)03/21/2023 3:54 pm TOE(S) RIGHT COMPARISON: None available HISTORY: ORDERING SYSTEM PROVIDED HISTORY: Reason for Exam: pain FINDINGS: Mineralization and bony alignment are normal. There is no fracture or dislocation. No periosteal reaction. No significant degenerative changes are present. There is no joint effusion. The soft tissues appear normal. IMPRESSION: No acute osseous injury. Interpreted by: Tamera Vu MD Preliminary Report By: Tamera Vu MD Electronically signed By Tamera Vu MD Dictated Date: 03/21/2023 5:58:20 PM Prelim Date: 03/21/2023 6:06:06 PM Sign Date: 03/21/2023 6:06:06 PM Ordering Provider: CAR BONILLA [facility] ([place]) Hemoglobin A1con 03-14-2021 Glucose [Mass/Vol] 229 mg/dL Normal [facility] Comment on above: Performed By: #### H BA1C #### [facility] Routine Lab [address] [place], [place] [address] HbA1c (Bld) [Mass fraction] 9.6 % High 4.3-5.6 [facility] Comment on above: Performed By: #### H BA1C #### [facility] Routine Lab [address] [place], [place] [address] Urgent Care Visit Reporton 0 01-19-2021 Urgent Care Visit Report [facility] [place] [id number] OFFICE VISIT Date of Service: 01/19/21 MR#: [id number] Acct: [id number] Name: KARLIE GOVEA Rep #: [id number] : 1975 Provider: BOBBY sofia Age/Sex: 46/F Location: [facility] Status: Signed Intake Intake Visit Reasons: PE PHYSICAL/[facility] [address] Chief Complaint: chest pain Allergies No Known Allergies Allergy (Verified 05/21/19 08:39) [facility] Medical History (Updated 01/19/21 @ 11:58 by BOBBY Sanchez) Physical exam, pre-employment Social History Smoking Status: Current every day smoker HPI HPI Chief Complaint: chest pain Details: KARLIE GOVEA, is a 46 F who presents to the office today for Office Procedures Physical Exam Coding PE Coding Sports/School Physical: No DOT PE: No Pre-employment PE: Yes Coding Level of Care Code No Charge Diagnoses Physical exam, pre-employment Z02.1 CPT Codes PE Coding - Pre-employment PE: Yes (PREPE) Assessment and Plan Assessment and Plan (1) Physical exam, pre-employment: Status: Acute Plan: See attached scanned preemployment physical examination forms corresponding with today's date 01/19/21 1159 Date Maurice ROSALES Cosigner Signature: Date (if applicable) CC: Normal [facility] LUIS MIGUEL by IFAon 09-22-2020 LUIS MIGUEL Pattern ANANOT Normal [facility] Comment on above: Performed By: #### R F #### [facility] Routine Lab [address] [place], [place] [address] #### ANAIFS #### [facility] [address] [place], [place] [address] LUIS MIGUEL Titer Normal Negative [facility] Lab Comment on above: Result Comment: Nega tive Normal range : negatie at <1:80 serum dilution. Performed By: #### R F #### [facility] Routine Lab [address] [place] [address] #### ANAIFS #### [facility] [address] [place] [id number] Nuclear Ab IF (S) [Titer] Negative Normal Negative [facility] Comment on above: Performed By: #### R F #### [facility] Routine Lab [address] [place] [address] #### ANAIFS #### [facility] [address] [place] [address] Rheumatoid Factoron 09-22-19 21 Rheumatoid Factor <10 Normal <16 [facility] Reference Lab Comment on above: Performed By: #### R F #### [facility] Routine Lab [address] [place] [address] #### ANAIFS #### [facility] [address] [place] [address] [facility] Patient: KARLIE GOVEA 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 patient states he had eaten cookies earlier in the day and elevated his glucose. he denies recent head trauma or injury. he has 8/10 throbbing headache, with floaters before eyes, headache is concentrated to right retro-orbital area, associated with nausea, vomiting. patient states this feels just like his migraine headaches that he gets. patient states took Excedrin with no improvement of headache. Timin-3 Hours, Today Duration: Constant Onset/Quality: Throbbing, Similar To Previous Headaches Severity: Severe Preceding Symptoms: Other - floaters Associated Symptoms: Photophobia, Nausea, Vomiting Past Medical History Allergies No Known Allergies Allergy (Verified 08/20/19 13:13) Home Medications Aripiprazole [Abilify] 15 mg PO DAILY 08/20/19 Insulin Aspart [Novolog] 0 unit SQ 08/20/19 Insulin Glargine,Hum.rec.anlo g [Basaglar Kwikpen U-100] 0 unit SQ 08/20/19 Ondansetron Odt [Zofran Odt] 4 mg PO Q8H PRN #10 tab.rapdis 08/20/19 Sertraline HCl [Zoloft] 200 mg PO DAILY 08/20/19 Review Of Systems All Other Systems: Reviewed and negative for new complaints Constitutional: Reports: No Symptoms Reported EENT: Reports: No Symptoms Reported, Reports: Other - no facial swelling or sinus percussion tenderness. Respiratory: Reports: No Symptoms Reported Cardiac (ROS): Reports: No Symptoms Reported ABD/GI: Reports: Nausea, Reports: Vomiting : Reports: No Symptoms Reported Musculoskeletal: Reports: No Symptoms Reported Skin: Reports: No Symptoms Reported Neurological/Psych: Reports: Headache Hematologic/Lymphatic : Reports: No Symptoms Reported Physical Exam General Appearance: Alert, Mild Distress ENT: ENT Inspection Normal, Pharynx Normal, No Signs of Dehydration, Other - no facial swelling or bruising seen. Neck: Normal Inspection, Other - neck is supple Respiratory: No Respiratory Distress, Breath Sounds Normal Cardiovascular: Reg Rate Rhythm, No Murmur Peripheral Pulses: Radial (L): 2+, Radial (R): 2+ Abdomen: Non-Tender, No Distention Skin: Normal Color, Warm, Dry Extremities: Non-Tender, Full ROM, Normal Appearance, No Pedal Edema Higher Neuro/Psych Functions: Alert, Oriented x3, No Signs Of Acute CVA, Normal Speech, Normal Cognition, Normal Mood/Affect Cranial Nerves: Normal As Tested - cn's 2-8 intact symmetrically. Progress ED Course/Plan: patient had moderate improvement with IM Toradol/Reglan and ODT ZOfran . later he had po Tramadol 100 mgs, and soon states the headache was down to a 5/10 and getting better rapidly. Departure Initial Vital Signs Temp Pulse Resp BP Pulse Ox 97.9 F 113 H 16 143/90 967 H 08/20/19 13:10 08/20/19 13:10 08/20/19 13:10 08/20/19 13:10 08/20/19 13:10 Last Set of Vital Signs Temp Pulse Resp BP Pulse Ox 97.9 F 113 H 16 143/90 967 H 08/20/19 13:10 08/20/19 13:10 08/20/19 13:10 08/20/19 13:10 08/20/19 13:10 Impression: migraine headache Decision to Admit/Discharge/Trans manny: 13:33 Instructions: Migraine Headache (ED) Prescriptions: Ondansetron Odt [Zofran Odt] 4 mg PO Q8H PRN #10 tab.rapdis PRN Reason: Nausea And Vomiting Additional Instructions: zofran every 8 hrs for nausea, vomting if need. allow pill to melt on the tongue. light diet for next 24 hrs, soups, jello, water, gatorade. no fried foods. continue excedrin for migraine. Disposition: HOME/SELF CARE ROUTINE Referrals: [facility],DOCTOR [Family Provider] - Condition: Good 08/20/19 1928 [id number] [phone] CC: [facility] PHYSICIAN Normal [facility] CT ANGIOGRAM HEADon 01-21-20 CT ANGIOGRAM HEAD EXAMINATION:CT ANGIOGRAM HEAD. 01/20/2018CLINICAL HISTORY:Headache, dizziness and left-sided and subjective weakness.TECHNIQUE:Ax ial CT scans through the head was obtained without contrast administration. Following IV administration of 75 mL of Isovue-370, axial CT scans of the head were obtained. Coronal and sagittal MIP images were obtained. In addition, 3D reconstruction images were generated on a separate independent H5 workstation. Dose reduction techniques were achieved by using automated exposure control and/or adjustment of mA and/or kV according to patient size and/or use of iterative reconstruction technique.COMPARISON: None.FINDINGS:CT HEAD: No acute intracranial hemorrhage or edema or midline shift. The cerebral hemispheres, the brainstem and the cerebellum appear normal. The ventricular system is normal in size. The visualized paranasal sinuses, middle ear cavities and mastoids are clear. The orbits appear normal.CTA HEAD: No major branch occlusion or significant intracranial stenosis. No aneurysm.IMPRESSION:N ormal CTA of the head.Workstation ID: [id number] d by: KASIE DELUCA on FriJanuary 20, 2018 11:05:46 PM EDTTranscribed by: KASIE DELUCA on FriJanuary 20, 2018 11:05:46 PM EDTFinalized by: KASIE DELUCA on FriJanuary 20, 2018 11:05:46 PM EDT Normal [facility] Comment on above: Order Comment: Reaso n for exam?:BEE, dizziness, left side subjective weakenss and paresthsias. MRI b(-). Evaluae for RCVSInjury/Trauma or Illness?:Illness/OtherHow long have you had these symptoms (acute/chronic)?:AcuteType of Exam?:InitialAdditional signs and symptoms?:BEE, dizziness, left side subjective weakenss and paresthsias. MRI b(-). Evaluae for RCVS MR BRAIN WITH AND WITHOUT CO NTRASTon 01-20-2018 MR BRAIN WITH AND WITHOUT CONTRAST EXAMINATION:MR BRAIN WITH AND WITHOUT CONTRASTHISTORY:ORDER ING SYSTEM PROVIDED HISTORY: AMS, BEE, ataxia, h/o breast cancer r/o ischemia, stroke, mass, TECHNOLOGIST PROVIDED HISTORY: Reason for exam: AMS, BEE, ataxia, h/o breast cancer r/o ischemia, stroke, massIllness/OtherEnco unter Type: InitialAdditional signs and symptoms: [facility] PROVIDED DIAGNOSIS CODES:R51 Acute nonintractable headache, unspecified headache typeR41.82 Altered mental status, unspecified altered mental status typeR26.81 Gait instabilityCOMPARISON :CT head, 01/19/2018.TECHNIQUE: Sagittal and axial T1, axial T2, FLAIR, diffusion, T2 gradient, postcontrast axial, coronal and sagittal T1 images were obtained.CONTRAST:LOY OTERATE MEGLUMINE 0.5 MMOL/ML INTRAVENOUS SOLUTION - 20 mLFINDINGS:Mild mucosal thickening in the paranasal sinuses. Mastoid air cells are clear. Nasopharynx is normal. Office Clinician spaces are normal. Orbital contents appear normal. The extracranial soft tissue structures are unremarkable.Ventricl es are normal in size. There is no hydrocephalus. No mass effect. No shift of midline. Mild chronic microvascular ischemic changes. Diffusion images show no diffusion restriction. No acute ischemic infarction. Gradient-echo images show no hemorrhagic lesions. There is no pathologic enhancement within the brain. No masses. No evidence of metastatic disease.IMPRESSION:1. No acute infarction.2. No masses or evidence of metastatic disease. No acute findings.[employer] tation ID: [id number] by: TO HANSEN on FriJanuary 20, 2018 8:48:18 AM EDTTranscribed by: FAN PETERS on FriJanuary 20, 2018 9:32:03 AM EDTFinalized by: TO HANSEN on FriJanuary 20, 2018 10:21:33 AM EDT [facility] Comment on above: Order Comment: Reaso n for exam?:AMS, BEE, ataxia, h/o breast cancer r/o ischemia, stroke, massInjury/Trauma or Illness?:Illness/OtherHow long have you had these symptoms (acute/chronic)?:UnknownType of Exam?:InitialAdditional signs and symptoms?:n CT CHEST ABDOMEN PELVIS WITH IV CONTRAST ONLYon 01-19-2018 CT CHEST ABDOMEN PELVIS WITH IV CONTRAST ONLY EXAMINATION:CT HEAD OR BRAIN WITHOUT CONTRAST; CT CHEST ABDOMEN PELVIS WITH IV CONTRAST ONLYHISTORY:ORDERING SYSTEM PROVIDED HISTORY: BEE, off balance, difficulty with concentration; history of breast cancer, TECHNOLOGIST PROVIDED HISTORY: Reason for exam: BEE, off balance, difficulty with concentration; history of breast cancerIllness/OtherEn counter Type: InitialAdditional signs and symptoms: breast ca 6 years agoORDERING SYSTEM PROVIDED DIAGNOSIS CODES:; ORDERING SYSTEM PROVIDED HISTORY: feels mass to left chest wall; prior bilateral mastectomy, TECHNOLOGIST PROVIDED HISTORY: Reason for exam: BEE, off balance, difficulty with concentration; history of breast cancerIllness/OtherEn counter Type: InitialAdditional signs and symptoms: dx 6 years ago with breast caORDERING SYSTEM PROVIDED DIAGNOSIS CODES:COMPARISON:None .TECHNIQUE:Dose reduction techniques were achieved by using automated exposure control and/or adjustment of mA and/or kV according to patient size and/or use of iterative reconstruction technique.Noncontrast CT of the brain was performed followed by enhanced images of the chest, abdomen, and pelvis with IV contrast.CONTRAST:IOP AMIDOL 76 % INTRAVENOUS SOLUTION - 75 mL,FINDINGS:Calvarium is intact. Paranasal sinuses and mastoid air cells are clear.Intracranially, there is no evidence of hemorrhage, mass effect, or midline shift. Ventricles and cisternal spaces are age appropriate. No significant carotid vascular calcifications.There is no axillary or mediastinal lymphadenopathy. Normal heart size. No pericardial fluid.There is no significant pulmonary consolidation or pleural effusion. A few areas of mosaic attenuation and ground-glass density are present throughout both lungs. A single subcentimeter nodule is present in the right lower lobe on image 39 of sequence 3 measuring 6 mm.Solid upper abdominal organs demonstrate no acute abnormalities. Incidental small cyst in the left kidney. No adrenal mass or adenopathy. No obstructive uropathy. Gallbladder has been removed.There is no bowel obstruction or inflammation. Normal appendix.No pelvic adenopathy or ascites. Uterus has been removed. Bladder is grossly normal.No suspicious lytic or sclerotic osseous lesions. Patient appears to have undergone previous bilateral mastectomy.IMPRESSION :1. No acute abnormality in the chest, abdomen, or pelvis corresponding to reported clinical history.2. Single subcentimeter nodule in the right lower lobe, follow-up as per criteria.3. Patchy ground-glass densities in both lungs could reflect air trapping in the setting of airways disease. This appearance may also be accentuated by low lung volumes in the setting of obesity.4. Status post bilateral mastectomy. There is no axillary adenopathy or chest wall mass.5. No significant intracranial abnormality.Fleischne r Society guidelines for follow-up and management of pulmonary nodules:Nodule size less than or equal to 4 mmIn a low-risk patient, no follow-up needed.In a high-risk patient, follow-up CT at 12 months; if unchanged, no further follow-up.Nodule size = 4-6 mmIn a low-risk patient, follow-up CT at 12 months; if unchanged, no further follow-up.In a high-risk patient, initial follow-up CT at 6-12 months then at 18-24 months if no change.Nodule size = 6-8 mmIn a low-risk patient, initial follow-up CT at 6-12 months then at 18-24 months if no change.In a high-risk patient, initial follow-up CT at 3-6 months then at 9-12 months and 24 months if no change.Nodule size greater than or equal to 8 mmIn low-risk and high-risk patients, follow-up CT at around 3, 9, and 24 months, dynamic contrast-enhanced CT, PET, and/or biopsy.Low-risk patients include individuals with minimal or absent history of smoking and other known risk factors.High-risk patients include individuals with a history of smoking or other known risk factors.Radiology 2005; 237:395-400SZD/dbgWor kstation ID: [id number] by: SHANNEN WELLS on FriJanuary 19, 2018 9:49:50 PM EDTTranscribed by: MARINA GIORDANO on FriJanuary 19, 2018 9:57:40 PM EDTFinalized by: SHANNEN WELLS on FriJanuary 20, 2018 1:58:28 PM EDT [facility] Comment on above: Order Comment: Reaso n for exam?:BEE, off balance, difficulty with concentration; history of breast cancerInjury/Trauma or Illness?:Illness/OtherHow long have you had these symptoms (acute/chronic)?:AcuteType of Exam?:InitialAdditional signs and symptoms?:dx 6 years ago with breast ca CT HEAD OR BRAIN WITHOUT CON TRASTon 01-19-2018 CT HEAD OR BRAIN WITHOUT CONTRAST EXAMINATION:CT HEAD OR BRAIN WITHOUT CONTRAST; CT CHEST ABDOMEN PELVIS WITH IV CONTRAST ONLYHISTORY:ORDERING SYSTEM PROVIDED HISTORY: BEE, off balance, difficulty with concentration; history of breast cancer, TECHNOLOGIST PROVIDED HISTORY: Reason for exam: BEE, off balance, difficulty with concentration; history of breast cancerIllness/OtherEn counter Type: InitialAdditional signs and symptoms: breast ca 6 years agoORDERING SYSTEM PROVIDED DIAGNOSIS CODES:; ORDERING SYSTEM PROVIDED HISTORY: feels mass to left chest wall; prior bilateral mastectomy, TECHNOLOGIST PROVIDED HISTORY: Reason for exam: BEE, off balance, difficulty with concentration; history of breast cancerIllness/OtherEn counter Type: InitialAdditional signs and symptoms: dx 6 years ago with breast caORDERING SYSTEM PROVIDED DIAGNOSIS CODES:COMPARISON:None .TECHNIQUE:Dose reduction techniques were achieved by using automated exposure control and/or adjustment of mA and/or kV according to patient size and/or use of iterative reconstruction technique.Noncontrast CT of the brain was performed followed by enhanced images of the chest, abdomen, and pelvis with IV contrast.CONTRAST:IOP AMIDOL 76 % INTRAVENOUS SOLUTION - 75 mL,FINDINGS:Calvarium is intact. Paranasal sinuses and mastoid air cells are clear.Intracranially, there is no evidence of hemorrhage, mass effect, or midline shift. Ventricles and cisternal spaces are age appropriate. No significant carotid vascular calcifications.There is no axillary or mediastinal lymphadenopathy. Normal heart size. No pericardial fluid.There is no significant pulmonary consolidation or pleural effusion. A few areas of mosaic attenuation and ground-glass density are present throughout both lungs. A single subcentimeter nodule is present in the right lower lobe on image 39 of sequence 3 measuring 6 mm.Solid upper abdominal organs demonstrate no acute abnormalities. Incidental small cyst in the left kidney. No adrenal mass or adenopathy. No obstructive uropathy. Gallbladder has been removed.There is no bowel obstruction or inflammation. Normal appendix.No pelvic adenopathy or ascites. Uterus has been removed. Bladder is grossly normal.No suspicious lytic or sclerotic osseous lesions. Patient appears to have undergone previous bilateral mastectomy.IMPRESSION :1. No acute abnormality in the chest, abdomen, or pelvis corresponding to reported clinical history.2. Single subcentimeter nodule in the right lower lobe, follow-up as per criteria.3. Patchy ground-glass densities in both lungs could reflect air trapping in the setting of airways disease. This appearance may also be accentuated by low lung volumes in the setting of obesity.4. Status post bilateral mastectomy. There is no axillary adenopathy or chest wall mass.5. No significant intracranial abnormality.Fleischne r Society guidelines for follow-up and management of pulmonary nodules:Nodule size less than or equal to 4 mmIn a low-risk patient, no follow-up needed.In a high-risk patient, follow-up CT at 12 months; if unchanged, no further follow-up.Nodule size = 4-6 mmIn a low-risk patient, follow-up CT at 12 months; if unchanged, no further follow-up.In a high-risk patient, initial follow-up CT at 6-12 months then at 18-24 months if no change.Nodule size = 6-8 mmIn a low-risk patient, initial follow-up CT at 6-12 months then at 18-24 months if no change.In a high-risk patient, initial follow-up CT at 3-6 months then at 9-12 months and 24 months if no change.Nodule size greater than or equal to 8 mmIn low-risk and high-risk patients, follow-up CT at around 3, 9, and 24 months, dynamic contrast-enhanced CT, PET, and/or biopsy.Low-risk patients include individuals with minimal or absent history of smoking and other known risk factors.High-risk patients include individuals with a history of smoking or other known risk factors.Radiology 2005; 237:395-400SZD/dbgWor kstation ID: [id number] by: SHANNEN WELLS on FriJanuary 19, 2018 9:49:50 PM EDTTranscribed by: MARINA GIORDANO on FriJanuary 19, 2018 9:57:40 PM EDTFinalized by: SHANNEN WELLS on FriJanuary 20, 2018 1:58:28 PM EDT Normal [facility] Comment on above: Order Comment: Reaso n for exam?:BEE, off balance, difficulty with concentration; history of breast cancerInjury/Trauma or Illness?:Illness/OtherHow long have you had these symptoms (acute/chronic)?:AcuteType of Exam?:InitialAdditional signs and symptoms?:breast ca 6 years ago Vital Signs Date Time Vital Sign Value Performing Clinician Tellyi silvano 07-16-2025 15:34-0500 Diastolic Blood Pressure Non-Invasive 82 mm[Hg] JERICHO SULTANA MD [facility] 07-16-2025 15:34-0500 Heart rate 98 /min JERICHO SULTANA MD [facility] 07-16-2025 15:34-0500 Respiratory rate 16 /min JERICHO SULTANA MD [facility] 07-16-2025 15:34-0500 Systolic Blood Pressure Non-Invasive 136 mm[Hg] JERICHO SULTANA MD [facility] 07-16-2025 14:00-0500 Blood Pressure Cuff Size JERICHO SULTANA MD [facility] 07-16-2025 14:00-0500 Blood Pressure Location JERICHO SULTANA MD [facility] 07-16-2025 14:00-0500 Blood Pressure Method JERICHO SULTANA MD [facility] 07-16-2025 14:00-0500 Body temperature 97.16 [degF] JERICHO SULTANA MD [facility] 07-16-2025 14:00-0500 Diastolic Blood Pressure Non-Invasive 79 mm[Hg] JERICHO SULTANA MD [facility] 07-16-2025 14:00-0500 Heart rate 105 /min JERICHO SULTANA MD [facility] 07-16-2025 14:00-0500 Systolic Blood Pressure Non-Invasive 145 mm[Hg] JERICHO SULTANA MD [facility] 01-16-2025 01:53-0400 Heart rate 95 /min THERON STOKES MD [facility] 01-16-2025 00:58-0400 Heart rate 98 /min THERON STOKES MD [facility] 01-16-2025 00:58-0400 Respiratory rate 20 /min THERON STOKES MD [facility] 01-16-2025 00:11-0400 Diastolic Blood Pressure Non-Invasive 72 mm[Hg] THERON STOKES MD [facility] 01-16-2025 00:11-0400 Heart rate 106 /min THERON STOKES MD [facility] 01-16-2025 00:11-0400 Respiratory rate 20 /min THERON STOKES MD [facility] 01-16-2025 00:11-0400 Systolic Blood Pressure Non-Invasive 111 mm[Hg] THERON STOKES MD [facility] 01-15-2025 23:25-0400 Body temperature 98.06 [degF] THERON STOKES MD [facility] 01-15-2025 23:25-0400 Diastolic Blood Pressure Non-Invasive 84 mm[Hg] THERON STOKES MD [facility] 01-15-2025 23:25-0400 Respiratory rate 20 /min THERON STOKES MD [facility] 01-15-2025 23:25-0400 Systolic Blood Pressure Non-Invasive 129 mm[Hg] THERON STOKES MD [facility] 08-27-2024 16:10-0500 SaO2% (BldA) [Mass fraction] 96.4 % FAUSTINO FROMMELT DO [facility] 08-27-2024 16:06-0500 Body temperature 98.96 [degF] FAUSTINO FROMMELT DO [facility] 08-27-2024 16:06-0500 Diastolic Blood Pressure Non-Invasive 77 mm[Hg] FAUSTINO FROMMELT DO [facility] 08-27-2024 16:06-0500 Heart rate 93 /min FAUSTINO FROMMELT DO [facility] 08-27-2024 16:06-0500 Respiratory rate 16 /min FAUSTINO FROMMELT DO [facility] 08-27-2024 16:06-0500 Systolic Blood Pressure Non-Invasive 116 mm[Hg] FAUSTINO FROMMELT DO [facility] 08-28-2023 18:01-0500 Body temperature 98.42 [degF] DR ABI LOPEZ MD [facility] 08-28-2023 18:01-0500 Body weight 79.[address] ABI LOPEZ MD [facility] 08-28-2023 18:01-0500 Diastolic Blood Pressure Non-Invasive 78 mm[Hg] DR ABI LOPEZ MD [facility] 08-28-2023 18:01-0500 Heart rate 88 /min DR ABI LOPEZ MD [facility] 08-28-2023 18:01-0500 Respiratory rate 20 /min DR ABI LOPEZ MD [facility] 08-28-2023 18:01-0500 Systolic Blood Pressure Non-Invasive 142 mm[Hg] DR ABI LOPEZ MD [facility] 03-21-2023 18:40-0400 Diastolic Blood Pressure Non-Invasive 84 1 CAR BONILLA MD [facility] 03-21-2023 18:40-0400 Heart rate 108 /min CAR BONILLA MD [facility] 03-21-2023 18:40-0400 Respiratory rate 22 /min CAR BONILLA MD [facility] 03-21-2023 18:40-0400 Systolic Blood Pressure Non-Invasive 126 1 CAR BONILLA MD [facility] 03-21-2023 17:22-0400 Body temperature 98.06 [degF] CAR BONILLA MD [facility] 03-21-2023 17:22-0400 Diastolic Blood Pressure Non-Invasive 87 1 CAR BONILLA MD [facility] 03-21-2023 17:22-0400 Heart rate 124 /min CAR BONILLA MD [facility] 03-21-2023 17:22-0400 Respiratory rate 24 /min CAR BONILLA MD [facility] 03-21-2023 17:22-0400 Systolic Blood Pressure Non-Invasive 129 1 CAR BONILLA MD [facility] Encounters Encounter Date Encounter Type Care Provider Facility Start: 07-16-2025 End: 07-16-2025 Emergency department patient visit JERICHO SULTANA MD [facility] Start: 05-30-2025 ambulatory CHEYENNE BARNES [facility] Start: 05-03-2025 End: 05-03-2025 Emergency department patient visit HAIRTHA SYLVESTER DO [facility] Start: 04-28-2025 End: 04-28-2025 ambulatory LIBBY SUAZO DO Facility:[facility] Start: 04-28-2025 End: 04-28-2025 Patient encounter procedure LIBBY SUAZO DO [facility] Start: 04-05-2025 ambulatory KATHY GAMING Facili ty:[facility] Start: 03-15-2025 End: 03-15-2025 Emergency department patient visit DR ABI LOPEZ MD [facility] Start: 03-04-2025 End: 03-04-2025 ambulatory LIBBY SUAZO DO Facility:[facility] Start: 03-04-2025 Encounter for genera l adult medical examination without abnormal findings LIBBY SUAZO DO [facility] Start: 03-04-2025 End: 03-04-2025 Patient encounter procedure LIBBY Arcelia SUAZO DO [facility] Start: 01-29-2025 End: 01-29-2025 Emergency department patient visit JERICHO Paniagua TEODORO [facility] Start: 01-15-2025 End: 01-16-2025 Emergency department patient visit THERON STOKES MD [facility] Start: 10-27-2024 End: 10-28-2024 Emergency [facility] Start: 08-27-2024 End: 08-27-2024 Emergency department patient visit FAUSTINO DEYSISHERRIE GAVIN [facility] Start: 05-29-2024 Emergency department patient visit Facility:[id number] Start: 08-28-2023 End: 08-28-2023 Emergency department patient visit DR ABI LOPEZ MD Facility:[facility] Start: 08-28-2023 End: 08-28-2023 Emergency department patient visit DR ABI LOPEZ MD [facility] Start: 03-21-2023 End: 03-21-2023 Emergency department patient visit CAR BONILLA Facility:[facility] Start: 03-21-2023 End: 03-21-2023 Emergency department patient visit CAR BONILLA MD [facility] Start: 08-20-2019 End: 08-20-2019 Emergency department patient visit JAN OLEARY Facility:[facility] Start: 01-19-2018 End: 01-21-2018 Ambulatory GUERO Paniagua NVAIXA [facility] Start: 06-14-2015 ambulatory TRANG Sahu) [facility] Procedures Date Procedure Procedure Detail Performing Clinician Start: 10-27-2024 Urinalysis CHEYENNE MONTSE PATTERSON Comment on above: Result Comment: URIN ALYSIS Performed By: #### [id number] #### [facility],[address] [place] [id number] Cholecystectomy CAR Arevalo MD Hysterectomy CAR Silver Simple mastectomy CAR BARBOSA MD Immunizations Immunization Date Immunization Notes Care Provider Fa cili 04-18-2021 SARS-CoV-2 (COVID-19 ) [id number] vaccine THERON STOKES MD [facility] Comment on above: Result Comment: 2024: [id number] Payers Date Payer Category Payer Private Health Insurance [id number] 2025 Unknown [id number] 2023 Unknown [id number] 2023 Unknown [id number] 2023 Medicaid [id number] 2023 Private Health Insurance [id number] 2011 Medicare [id number] 1974 Unknown [id number] 2.16.8 [id number]. 1974 Unknown [id number] 2.16.8 40.1.055716.3.579.2. 1974 Unknown [id number] 2.16.8 40.1.481104.3.579.2. 1974 Unknown [id number] 2.16.8 40.1.349294.3.579.2. 1974 Unknown [id number] 2.16.8 40.1.392867.3.579.2. 1974 Unknown [id number] 2.16. 840.1.105109.3.579.2.627 1974 Unknown [id number] 2.16. 840.1.411043.3.579.2. 1974 Unknown [id number] 2.16. 840.1.035621.3.579.2. 1974 Unknown [id number] 2.16. 840.1.589329.3.579.2. 1974 Unknown [id number] 2.16. 840.1.380197.3.579.2. 1974 Unknown [id number] 2.16. 840.1.103196.3.579.2. 1974 Unknown [id number] 2.16.8 40.1.150396.3.579.2. 1974 Unknown [id number] 2.16.8 40.1.372785.3.579.2.627 Medicaid Medicare [id number] Medicare [id number] Unknown [id number] 2.16.8 40.1.182279.3.579.2.383 Social History Date Type Detail Facility Start: 03-21-2023 Tobacco smoking status Heavy t obacco smoker (finding) [facility] Sex Assigned At [facility] Start: 02-16-2014 Sex Female (finding) [facility] Start: 07-16-2025 No, per patient [facility] Functional Status Date Assessment Result Facility 07-16-2025 Functional Status [facility] 07-16-2025 Functional Status Ambulation in English, Ambulation in Room [facility] 01-16-2025 Functional Status Activity Jordan jazmynece Independent [facility] 01-15-2025 Functional Status Standard Safet y ID band on, Call device within reach, Bed in low position, Wheels locked, Upper/Half-Length side-rails up, Phone within reach, personal items within reach, Bedside Cart Locked, Visitor at bedside [facility] 08-27-2024 Functional Status Independent [facility] 08-27-2024 Functional Status Independent [facility] 08-28-2023 Functional Status Assistive Device None A [facility] 03-21-2023 Functional Status ID band on, Call device within reach, Bed in low position, Wheels locked, Bedside Cart Locked, Visitor at bedside, Safety level maintained [facility] 03-21-2023 Functional Status [facility] Mental Status Date Assessment Result Facility 07-16-2025 Mental Status Orientation Oriented x 4 [facility] 07-16-[address] [facility] [address] [facility] 01-16-2025 Mental Status Orientation Oriented x 4 [facility] 01-15-[address] [facility] 08-27-2024 Mental Status Orientation Oriented x 4 [facility] 08-27-[address] [facility] 08-28-2023 Mental Status Orientation Oriented x 4 [facility] 03-21-2023 Mental Status Orientation Oriented x 4 [facility] Clinical Notes 03-21-2023 to 07-16-2025 Note Date & Type Note Facility 07-16-2025 Hospital Discharg e instructions Patient Education 07/16/2025 15:55:08 Abdominal Pain Abdominal Pain Abdominal pain is pain in the stomach or belly area. Everyone has this pain from time to time. In many cases it goes away on its own. But abdominal pain can sometimes be due to a serious problem, such as appendicitis. So it s important to know when to get help. Causes of abdominal pain There are many possible causes of abdominal pain. Common causes in adults include: Constipation, diarrhea, or gas Stomach acid flowing back up into the esophagus (acid reflux or heartburn) Severe acid reflux, called GERD (gastroesophageal reflux disease) A sore in the lining of the stomach or small intestine (peptic ulcer) Inflammation of the gallbladder, liver, or pancreas Gallstones or kidney stones Appendicitis Intestinal blockage An internal organ pushing through a muscle or other tissue (hernia) Urinary tract infections In women, menstrual cramps, fibroids, ovarian cysts, pelvic inflammatory disease, or endometriosis Inflammation or infection of the intestines, including Crohn's disease and ulcerative colitis Irritable bowel syndrome Diagnosing the cause of abdominal pain Your healthcare provider will give you a physical exam help find the cause of your pain. If needed, you will have tests. Belly pain has many possible causes. So it can be hard to find the reason for your pain. Giving details about your pain can help. Tell your provider where and when you feel the pain, and what makes it better or worse. Also let your provider know if you have other symptoms such as: Fever Tiredness Upset stomach (nausea) Vomiting Changes in bathroom habits Blood in the stool or black, tarry stool Weight loss that you can't explain (involuntary weight loss?) Also report any family history of stomach or intestinal problems, or cancers. Tell your provider about all your alcohol use and drug use. Tell your provider about all medicines you use, including herbs, vitamins, and supplements. Treating abdominal pain Some causes of pain need emergency medical treatment right away. These include appendicitis or a bowel blockage. Other problems can be treated with rest, fluids, or medicines. Your healthcare provider can give you specific instructions for treatment or self-care based on what is causing your pain. If you have vomiting or diarrhea, sip water or other clear fluids. When you are ready to eat solid foods again, start with small amounts of tnud-hc-mgjjee, low-fat foods. These include apple sauce, toast, or crackers. When to get medical care Call 911 or go to the hospital right away if you: Can t pass stool and are vomiting Are vomiting blood or have bloody diarrhea or black, tarry diarrhea Have chest, neck, or shoulder pain Feel like you might pass out Have pain in your shoulder blades with nausea Have sudden, severe belly pain Have new, severe pain unlike any you have felt before Have a belly that is rigid, hard, and hurts to touch Call your healthcare provider if you have: Pain for more than 5 days Bloating for more than 2 days Diarrhea for more than 5 days A fever of 100.4 F (38 C) or higher, or as directed by your healthcare provider Pain that gets worse Weight loss for no reason Continued lack of appetite Blood in your stool How to prevent abdominal pain Here are some tips to help prevent abdominal pain: Eat smaller amounts of food at each meal. Don't eat greasy, fried, or other high-fat foods. Don't eat foods that give you gas. Exercise regularly. Drink plenty of fluids. To help prevent GERD symptoms: Quit smoking. Reduce alcohol and foods that increase stomach acid. Don't use aspirin or lgag-xyw-hidicai pain and fever medicines, if possible. This includes nonsteroidal anti-inflammatory drugs (NSAIDs). Lose excess weight. Finish eating at least 2 hours before you go to bed or lie down. Raise the head of your bed. 1174-6381 [employer]. [address] [place] [address]. All rights reserved. This information is not intended as a substitute for professional medical care. Always follow your healthcare professional's instructions. Follow Up Care 07/16/2025 13:50:49 With:LIBBY SUAZO DO Address: [address] [place] [phone] When:2-4 days [facility] 07-16-2025 Emergency department Discharge summary Discharge Instructions Thank you for allowing [facility] to assist you with your healthcare needs. The following is important discharge information regarding your hospital visit. Diagnosis from Today's Visit Abdominal pain What to Do Next Instructions from Your Care Team No qualifying data available. Post Acute Orders No qualifying data available. You Need to Schedule the Following Appointments Follow Up with LIBBY SUAZO DO When:Within 2-4 days Where:[address] [place] [id number] [phone] Allergies No Known Medication Allergies misc non-codified allergy Rash Medications Please ask your primary doctor or pharmacist before taking any other medication not listed, including over the counter drugs, herbal medications, vitamins and or supplements as they may interact with your home medications. What How Much When Why Instructions Last Dose New amoxicillin-clavulanate (amoxicillin-clavulanate 875 mg-125 mg oral tablet) 1 tab(s) by mouth Every 12 hours Duration: 10 Days Printed Prescription New lansoprazole (Prevacid 30 mg oral delayed release capsule) 1 cap by mouth Once a day Printed Prescription New ondansetron (Zofran 4 mg oral tablet) 1 tab(s) by mouth Every 8 hours as needed for Nausea/Vomiting Printed Prescription Unchanged ARIPiprazole (ARIPiprazole 15 mg oral tablet) 1 tab(s) by mouth Daily at bedtime TAKE ONE TABLET BY MOUTH EVERY NIGHT AT BEDTIME Unchanged diclofenac (diclofenac sodium 100 mg oral tablet, extended release) See instructions Foot pain, right Navicular fracture, foot (right) 2 tab(s) Oral in AM, 1 tab in PM Unchanged DME (FreeStyle Saumya 3+ Sensors) See instructions Hypoglycemia Diabetes mellitus with insulin therapy Place once sensor to the back of the upper arm every 15 days. Use reader or phone eder for daily blood sugar checks. 1 month supply Unchanged fluticasone nasal (Flonase 50 mcg/ inh nasal spray) 1 spray(s) each nostril Two (2) times a day Nasal congestion Unchanged gabapentin (gabapentin 800 mg oral tablet) 1 tab(s) by mouth Three (3) times a day Chronic pain Osteoarthritis Duration: 30 Days Unchanged glipiZIDE (glipiZIDE 10 mg oral tablet, extended release) 1 tab(s) by mouth Once a day Duration: 100 Days TAKE ONE TABLET BY MOUTH DAILY Unchanged insulin glargine (Lantus 100 units/ mL10 ml vial solution) 10 unit(s) Subcutaneous Once a day Unchanged levocetirizine (levocetirizine 5 mg oral tablet) 1 tab(s) by mouth Daily at bedtime Nasal congestion Unchanged metFORMIN (metFORMIN 1000 mg oral tablet (IR)) 1 tab(s) by mouth Two (2) times a day Duration: 100 Days Unchanged nortriptyline (nortriptyline 25 mg oral capsule) 3 cap by mouth Once a day Unchanged pantoprazole (pantoprazole 40 mg oral enteric coated tablet) 1 tab(s) by mouth Once a day Unchanged rimegepant (Nurtec ODT 75 mg oral tablet, disintegrating) 1 tab(s) by mouth Every other day Migraines not to exceed 75 mg in 24 hours Unchanged sertraline (sertraline 100 mg oral tablet) 1 tab(s) by mouth Once a day Duration: 100 Days Please take this list to your next doctor s visit. Bring all medications you take, including over the counter medications, herbals and other supplements with you to your doctor s visit. Patients and families are reminded to discard old lists and to update any records with all medication providers or retail pharmacies. Medication Leaflets ondansetron (oral) (on CARLOS pineda) What is the most important information I should know about ondansetron? Tell your doctor about all your other medicines. Some drugs should not be used with ondansetron. What is ondansetron? Ondansetron is used to prevent nausea and vomiting that may happen with certain cancer medicines (chemotherapy), or after surgery, or radiation treatment . Ondansetron may be used for purposes not listed in this medication guide. What should I discuss with my health care provider before taking ondansetron? You should not use ondansetron if you are allergic to it or similar medicines (dolasetron, granisetron, palonosetron). Some drugs should not be used with ondansetron. Your treatment plan may change if you also use apomorphine. Tell your doctor if you have or have ever had: an electrolyte imbalance (such as low blood levels of potassium or magnesium); congestive heart failure, slow heartbeats; heart rhythm disorder such as long QT syndrome (in you or a family member); an obstruction in the stomach or intestines, a change in bowel habits; a surgery on your stomach or intestines; or severe liver disease. The orally disintegrating tablet may contain phenylalanine and could be harmful if you have phenylketonuria (PKU). Tell your doctor if you also use stimulant medicine, opioid medicine, herbal products, or medicine for depression, mental illness, Parkinson's disease, migraine headaches, serious infections, or prevention of nausea and vomiting. An interaction with ondansetron could cause a serious condition called serotonin syndrome. Tell your doctor if you are or . Ondansetron is not approved for use by anyone younger than 4 years old. How should I take ondansetron? Follow all directions on your prescription label and read all medication guides or instruction sheets. Use the medicine exactly as directed. Ondansetron is usually taken just before surgery, chemotherapy, or radiation treatment. Follow your doctor's dosing instructions very carefully. Measure liquid medicine with the supplied measuring device (not a kitchen spoon). To take the orally disintegrating tablet: Keep the tablet in its blister pack until you are ready to take it. Open the package and peel back the foil. Use dry hands to remove the orally disintegrating tablet and place it in your mouth. Do not push a tablet through the foil or you may damage the tablet. Allow the orally disintegrating tablet to dissolve in your mouth without chewing. Do not swallow whole. Store in the original container at room temperature away from moisture, heat, and light. Store liquid medicine in an upright position. What happens if I miss a dose? Ondansetron is used when needed. If you are on a dosing schedule, skip any missed dose. Do not use two doses at one time. What happens if I overdose? Seek emergency medical attention or call the Poison Help line at . What should I avoid while taking ondansetron? Follow your doctor's instructions about any restrictions on food, beverages, or activity. What are the possible side effects of ondansetron? Get emergency medical help if you have signs of an allergic reaction: hives, difficult breathing, swelling of your face, lips, tongue, or throat. Seek medical attention right away if you have symptoms of serotonin syndrome such as: agitation, hallucinations, fever, sweating, shivering, fast heart rate, muscle stiffness, twitching, loss of coordination, nausea, vomiting, or diarrhea. Seek emergency medical help if you have signs of a heart attack: chest pain that spreads to your jaw or shoulder, nausea, and sweating. Call your doctor at once if you have: severe stomach pain, bloating, constipation, or any change in bowel habits; or dizziness, feeling lightheaded, fainting, slow, fast, or uneven heartbeats. Common side effects may include: diarrhea or constipation; headache; shortness of breath, rapid breathing, fast heartbeats; or feeling unwell, tiredness. This is not a complete list of side effects and others may occur. Call your doctor for medical advice about side effects. You may report side effects to FDA at 9-047-AYD-0801. What other drugs will affect ondansetron? Ondansetron can cause a serious heart problem. Your risk may be higher if you also use certain other medicines for infections, asthma, heart problems, high blood pressure, depression, mental illness, cancer, malaria, or HIV. Many drugs can affect ondansetron. This includes prescription and mklq-sek-udyewqr medicines, vitamins, and herbal products. Not all possible interactions are listed here. Tell your doctor about all other medicines you use. Where can I get more information? Your doctor or pharmacist can provide more information about ondansetron. Remember, keep this and all other medicines out of the reach of children, never share your medicines with others, and use this medication only for the indication prescribed. Every effort has been made to ensure that the information provided by [employer]. ('[employer]') is accurate, up-to-date, and complete, but no guarantee is made to that effect. Drug information contained herein may be time sensitive. [employer] information has been compiled for use by healthcare practitioners and consumers in the [place] and therefore [employer] does not warrant that uses outside of the [place] are appropriate, unless specifically indicated otherwise. [employer] drug information does not endorse drugs, diagnose patients or recommend therapy. [employer] drug information is an informational resource designed to assist licensed healthcare practitioners in caring for their patients and/or to serve consumers viewing this service as a supplement to, and not a substitute for, the expertise, skill, knowledge and judgment of healthcare practitioners. The absence of a warning for a given drug or drug combination in no way should be construed to indicate that the drug or drug combination is safe, effective or appropriate for any given patient. [employer] does not assume any responsibility for any aspect of healthcare administered with the aid of information [employer] provides. The information contained herein is not intended to cover all possible uses, directions, precautions, warnings, drug interactions, allergic reactions, or adverse effects. If you have questions about the drugs you are taking, check with your doctor, nurse or pharmacist. Copyright 7890-3516 [employer]. Version: 17.01. Revision Date: 06/01/2024. pantoprazole (oral/injection) (lezama TOE pra zole) First-Pantoprazole, Protonix, Protonix IV What is the most important information I should know about pantoprazole? Tell your doctor about all your other medicines. Some drugs should not be used with pantoprazole. Pantoprazole can cause kidney problems or new or worsening symptoms of lupus. Tell your doctor if you have: pain in your side or lower back, painful urination, blood or pus in your urine, joint pain or a skin rash on your cheeks or arms that worsens in sunlight. Tell your doctor if you have dizziness, irregular heartbeats, feeling jittery, muscle cramps, muscle spasms, cough, choking feeling, urinating less or blood in your urine. This medicines can cause diarrhea. Tell your doctor if you have diarrhea that is watery or bloody. You may be more likely to have a broken bone while using pantoprazole. Talk with your doctor about ways to keep your bones healthy. What is pantoprazole? Pantoprazole is used to treat the symptoms of gastroesophageal reflux disease (GERD) and a history of erosive esophagitis (damage to your esophagus caused by stomach acid) in adults and children who are at least 3 months old. Pantoprazole is also used in adults to treat the symptoms of other conditions involving excessive stomach acid such as Bravo-Marx syndrome. Pantoprazole may also be used for purposes not listed in this medication guide. What should I discuss with my healthcare provider before using pantoprazole? You should not use pantoprazole if you are allergic to it, or if: receiving rilpivirine-containing products; or you are allergic to any other stomach acid medicine such as lansoprazole, rabeprazole, esomeprazole, omeprazole, and others. Tell your doctor if you have or have ever had: a zinc deficiency; vitamin B12 deficiency; an electrolyte imbalance (such as low blood levels of potassium, calcium or magnesium); lupus; or liver or kidney disease. You may be more likely to have a broken bone while using pantoprazole. Talk with your doctor about ways to keep your bones healthy. Pantoprazole may harm an unborn baby. Tell your doctor if you are or plan to become . Ask a doctor if it is safe to breastfeed while using this medicine. How should I use pantoprazole? Follow all directions on your prescription label and read all medication guides or instruction sheets. Never use pantoprazole in larger amounts, or for longer than prescribed. Pantoprazole is taken by mouth or given as an infusion into a vein. Pantoprazole is given as an infusion into a vein by a healthcare provider. Pantoprazole tablets are taken by mouth, with or without food. Pantoprazole oral granules should be taken 30 minutes before a meal. The oral granules can also be given through a nasogastric tube. Ask your doctor or pharmacist if you do not understand these instructions. Read and carefully follow instructions for mixing and taking the oral granules. Do not change your dose or stop using this medication without your doctor's advice. Avoid medication errors by using exactly as directed on the label, or as prescribed by your doctor. Use this medicine for the full prescribed length of time, even if your symptoms quickly improve. You may use antacids if needed while you are taking pantoprazole tablets. Swallow the tablet whole and do not crush, chew, or break it. Shake the oral suspension (liquid). Measure a dose with the supplied measuring device (not a kitchen spoon). Call your doctor if your symptoms do not improve, or if they get worse after using the medicine for the number of days prescribed. You may need medical tests. This medicine can affect the results of certain medical tests. Tell any doctor or laboratory staff that you are using pantoprazole. This medicine can cause diarrhea. Tell your doctor if you have diarrhea that is watery or bloody. Store pantoprazole tablet and oral granules at room temperature away from moisture and heat. Store the oral suspension tightly closed in a refrigerator. Do not freeze and protect from light. Throw the medicine away after 30 days, even if there is still medicine left inside. What happens if I miss a dose? Use the medicine as soon as you can, but skip the missed dose if it is almost time for your next dose. Do not use two doses at one time. What happens if I overdose? Seek emergency medical attention or call the Poison Help line at . What should I avoid while using pantoprazole? Follow your doctor's instructions about any restrictions on food, beverages, or activity. Avoid getting pantoprazole oral suspension in your eyes. If contact does occur, rinse with water. What are the possible side effects of pantoprazole? Get emergency medical help if you have signs of an allergic reaction (hives, difficult breathing, swelling in your face or throat) or a severe skin reaction (fever, sore throat, burning eyes, skin pain, red or purple skin rash with blistering and peeling). Seek medical treatment if you have a serious drug reaction that can affect many parts of your body. Symptoms may include skin rash, fever, swollen glands, muscle aches, severe weakness, unusual bruising, or yellowing of your skin or eyes. Call your doctor at once if you have: severe stomach pain, diarrhea that is watery or bloody; nausea, vomiting, weight loss; sudden pain or trouble moving your hip, wrist, or back; pain, swelling, burning, or irritation around the IV needle; pain in your side or lower back, painful urination, blood or pus in your urine; signs of an electrolyte imbalance--increased thirst or urination, constipation, muscle weakness, leg cramps, numbness or tingling, feeling jittery, fluttering in your chest; low blood magnesium--dizziness, irregular heartbeats, feeling jittery, muscle cramps, muscle spasms, cough or choking feeling; new or worsening symptoms of lupus--joint pain, and a skin rash on your cheeks or arms that worsens in sunlight; or vitamin B12 deficiency--shortness of breath, feeling lightheaded, irregular heartbeats, muscle weakness, pale skin, tiredness, mood changes, numbness or tingling in your legs or arms. Long-term use of pantoprazole may increase your risk of serious side effects including stomach polyps. Talk with your doctor about these risks. Common side effects may include: headache, dizziness; stomach pain, gas, nausea, vomiting, diarrhea; joint pain; or fever, rash, or cold symptoms such as stuffy nose, sneezing, sore throat. This is not a complete list of side effects and others may occur. Call your doctor for medical advice about side effects. You may report side effects to FDA at 7-817-WJK-3530. What other drugs will affect pantoprazole? Tell your doctor about all your other medicines, especially: digoxin; rilpivirine-containing products; methotrexate; or a diuretic or 'water pill'. This list is not complete. Other drugs may affect pantoprazole, including prescription and tupf-dtq-htwtimd medicines, vitamins, and herbal products. Not all possible drug interactions are listed here. Where can I get more information? Your doctor or pharmacist can provide more information about pantoprazole. Remember, keep this and all other medicines out of the reach of children, never share your medicines with others, and use this medication only for the indication prescribed. Every effort has been made to ensure that the information provided by [employer]. ('[employer]') is accurate, up-to-date, and complete, but no guarantee is made to that effect. Drug information contained herein may be time sensitive. [employer] information has been compiled for use by healthcare practitioners and consumers in the [place] and therefore [employer] does not warrant that uses outside of the [place] are appropriate, unless specifically indicated otherwise. [employer] drug information does not endorse drugs, diagnose patients or recommend therapy. [employer] drug information is an informational resource designed to assist licensed healthcare practitioners in caring for their patients and/or to serve consumers viewing this service as a supplement to, and not a substitute for, the expertise, skill, knowledge and judgment of healthcare practitioners. The absence of a warning for a given drug or drug combination in no way should be construed to indicate that the drug or drug combination is safe, effective or appropriate for any given patient. [employer] does not assume any responsibility for any aspect of healthcare administered with the aid of information [employer] provides. The information contained herein is not intended to cover all possible uses, directions, precautions, warnings, drug interactions, allergic reactions, or adverse effects. If you have questions about the drugs you are taking, check with your doctor, nurse or pharmacist. Copyright 1901-9719 [employer]. Version: 22.02. Revision Date: 07/27/2024. lansoprazole (yuliya CARLOS pra zol) FIRST Lansoprazole, Prevacid, Prevacid OTC, Prevacid SoluTab What is the most important information I should know about lansoprazole? Lansoprazole can cause kidney problems. Tell your doctor if you are urinating less than usual, or if you have blood in your urine. Diarrhea may be a sign of a new infection. Call your doctor if you have diarrhea that is watery or has blood in it. Lansoprazole may cause new or worsening symptoms of lupus. Tell your doctor if you have joint pain and a skin rash on your cheeks or arms that worsens in sunlight. You may be more likely to have a broken bone while taking this medicine senior living or more than once per day. What is lansoprazole? Lansoprazole is a proton pump inhibitor that is used to treat and prevent stomach and intestinal ulcers, erosive esophagitis (damage to the esophagus from stomach acid), and other conditions involving excessive stomach acid such as Bravo-Marx syndrome. Mjlg-wyq-wqrfdrh lansoprazole (Prevacid OTC) is used to treat frequent heartburn that happens 2 or more days per week. Lansoprazole is not for immediate relief of heartburn symptoms. Lansoprazole may also be used for purposes not listed in this medication guide. What should I discuss with my healthcare provider before taking lansoprazole? Heartburn can mimic early symptoms of a heart attack. Get emergency medical help if you have chest pain that spreads to your jaw or shoulder and you feel anxious or light-headed. You should not use this medicine if you are allergic to lansoprazole, or if you take any medicine that contains rilpivirine (Edurant, Complera, Odefsey). Tell your doctor if you have ever had: liver disease; lupus; low levels of magnesium in your blood; or osteoporosis or low bone mineral density (osteopenia). Do not use ddhh-dzq-ytzzfrv lansoprazole (Prevacid OTC) without the advice of a doctor if you have: trouble or pain with swallowing; bloody or black stools; vomit that looks like blood or coffee grounds; heartburn that has lasted for over 3 months; frequent chest pain, heartburn with wheezing; unexplained weight loss; nausea or vomiting, stomach pain; or an electrolyte imbalance or metabolic disorder. Some forms of lansoprazole may contain phenylalanine. Tell your doctor if you have phenylketonuria (PKU). You may be more likely to have a broken bone in your hip, wrist, or spine while taking a proton pump inhibitor long-term or more than once per day. Talk with your doctor about ways to keep your bones healthy. Do not give lansoprazole to a child younger than 1 year old. Prevacid OTC is not approved for use by anyone younger than 18 years old. Ask a doctor before using this medicine if you are or . How should I take lansoprazole? Follow all directions on your prescription label and read all medication guides or instruction sheets. Use the medicine exactly as directed. Lansoprazole is usually taken before eating. Prevacid OTC should be taken in the morning before you eat breakfast. Read and carefully follow any Instructions for Use provided with your medicine. Ask your doctor or pharmacist if you do not understand these instructions. Shake the oral suspension (liquid) before you measure a dose. Use the dosing syringe provided, or use a medicine dose-measuring device (not a kitchen spoon). Swallow the capsule whole and do not crush, chew, break, or open it. Remove an orally disintegrating tablet from the package only when you are ready to take the medicine. Place the tablet in your mouth and allow it to dissolve, without chewing. Swallow several times as the tablet dissolves. Use this medicine for the full prescribed length of time, even if your symptoms quickly improve. Prevacid OTC should be taken only once daily for 14 days. It may take up to 4 days for full effect. Allow at least 4 months to pass before you start another 14-day treatment with Prevacid OTC. Call your doctor if your symptoms do not improve or if they get worse while you are taking lansoprazole. If you take Prevacid OTC, call your doctor if your heartburn gets worse over the 14-day treatment, or if you need treatment more than once every 4 months. Some conditions are treated with a combination of lansoprazole and antibiotics. Use all medications as directed. Store at room temperature away from moisture, heat, and light. Do not freeze the liquid medicine. What happens if I miss a dose? Take the medicine as soon as you can, but skip the missed dose if it is almost time for your next dose. Do not take two doses at one time. What happens if I overdose? Seek emergency medical attention or call the Poison Help line at . What should I avoid while taking lansoprazole? This medicine can cause diarrhea, which may be a sign of a new infection. If you have diarrhea that is watery or bloody, call your doctor before using anti-diarrhea medicine. What are the possible side effects of lansoprazole? Get emergency medical help if you have signs of an allergic reaction: hives; difficulty breathing; swelling of your face, lips, tongue, or throat. Call your doctor at once if you have: severe stomach pain, diarrhea that is watery or bloody; new or unusual pain in your wrist, back, hip, or thigh; a seizure (convulsions); kidney problems--fever, nausea, little or no urination, blood in your urine, swelling, rapid weight gain; low magnesium--dizziness, fast or irregular heart rate, tremors (shaking) or jerking muscle movements, feeling jittery, muscle cramps, muscle spasms in your hands and feet, cough or choking feeling; or new or worsening symptoms of lupus--joint pain, and a skin rash on your cheeks or arms that worsens in sunlight. Taking lansoprazole long-term may cause you to develop stomach growths called fundic gland polyps. Talk with your doctor about this risk. If you use lansoprazole for longer than 3 years, you could develop a vitamin B-12 deficiency. Talk to your doctor about how to manage this condition if you develop it. Common side effects may include: nausea, stomach pain; diarrhea, constipation; or headache. This is not a complete list of side effects and others may occur. Call your doctor for medical advice about side effects. You may report side effects to FDA at 5-803-YIF-0286. What other drugs will affect lansoprazole? Sucralfate can make it harder for your body to absorb lansoprazole. Wait at least 30 minutes after taking lansoprazole before you take sucralfate. Tell your doctor if you use methotrexate. Many drugs can affect lansoprazole, and some drugs should not be used at the same time. This includes prescription and irot-crj-cfqyiqx medicines, vitamins, and herbal products. Not all possible interactions are listed here. Tell your doctor about all your current medicines and any medicine you start or stop using. Where can I get more information? Your pharmacist can provide more information about lansoprazole. Remember, keep this and all other medicines out of the reach of children, never share your medicines with others, and use this medication only for the indication prescribed. Every effort has been made to ensure that the information provided by [employer]. ('[employer]') is accurate, up-to-date, and complete, but no guarantee is made to that effect. Drug information contained herein may be time sensitive. [employer] information has been compiled for use by healthcare practitioners and consumers in the [place] and therefore [employer] does not warrant that uses outside of the [place] are appropriate, unless specifically indicated otherwise. [employer] drug information does not endorse drugs, diagnose patients or recommend therapy. [employer] drug information is an informational resource designed to assist licensed healthcare practitioners in caring for their patients and/or to serve consumers viewing this service as a supplement to, and not a substitute for, the expertise, skill, knowledge and judgment of healthcare practitioners. The absence of a warning for a given drug or drug combination in no way should be construed to indicate that the drug or drug combination is safe, effective or appropriate for any given patient. [facility] does not assume any responsibility for any aspect of healthcare administered with the aid of information [facility] provides. The information contained herein is not intended to cover all possible uses, directions, precautions, warnings, drug interactions, allergic reactions, or adverse effects. If you have questions about the drugs you are taking, check with your doctor, nurse or pharmacist. Copyright 0126-4427 [employer]. Version: 16.. Revision Date: 10/20/2020. Education Materials Abdominal Pain Abdominal pain is pain in the stomach or belly area. Everyone has this pain from time to time. In many cases it goes away on its own. But abdominal pain can sometimes be due to a serious problem, such as appendicitis. So it s important to know when to get help. Causes of abdominal pain There are many possible causes of abdominal pain. Common causes in adults include: Constipation, diarrhea, or gas Stomach acid flowing back up into the esophagus (acid reflux or heartburn) Severe acid reflux, called GERD (gastroesophageal reflux disease) A sore in the lining of the stomach or small intestine (peptic ulcer) Inflammation of the gallbladder, liver, or pancreas Gallstones or kidney stones Appendicitis Intestinal blockage An internal organ pushing through a muscle or other tissue (hernia) Urinary tract infections In women, menstrual cramps, fibroids, ovarian cysts, pelvic inflammatory disease, or endometriosis Inflammation or infection of the intestines, including Crohn's disease and ulcerative colitis Irritable bowel syndrome Diagnosing the cause of abdominal pain Your healthcare provider will give you a physical exam help find the cause of your pain. If needed, you will have tests. Belly pain has many possible causes. So it can be hard to find the reason for your pain. Giving details about your pain can help. Tell your provider where and when you feel the pain, and what makes it better or worse. Also let your provider know if you have other symptoms such as: Fever Tiredness Upset stomach (nausea) Vomiting Changes in bathroom habits Blood in the stool or black, tarry stool Weight loss that you can't explain (involuntary weight loss?) Also report any family history of stomach or intestinal problems, or cancers. Tell your provider about all your alcohol use and drug use. Tell your provider about all medicines you use, including herbs, vitamins, and supplements. Treating abdominal pain Some causes of pain need emergency medical treatment right away. These include appendicitis or a bowel blockage. Other problems can be treated with rest, fluids, or medicines. Your healthcare provider can give you specific instructions for treatment or self-care based on what is causing your pain. If you have vomiting or diarrhea, sip water or other clear fluids. When you are ready to eat solid foods again, start with small amounts of cydi-zi-pofpqs, low-fat foods. These include apple sauce, toast, or crackers. When to get medical care Call 911 or go to the hospital right away if you: Can t pass stool and are vomiting Are vomiting blood or have bloody diarrhea or black, tarry diarrhea Have chest, neck, or shoulder pain Feel like you might pass out Have pain in your shoulder blades with nausea Have sudden, severe belly pain Have new, severe pain unlike any you have felt before Have a belly that is rigid, hard, and hurts to touch Call your healthcare provider if you have: Pain for more than 5 days Bloating for more than 2 days Diarrhea for more than 5 days A fever of 100.4 F (38 C) or higher, or as directed by your healthcare provider Pain that gets worse Weight loss for no reason Continued lack of appetite Blood in your stool How to prevent abdominal pain Here are some tips to help prevent abdominal pain: Eat smaller amounts of food at each meal. Don't eat greasy, fried, or other high-fat foods. Don't eat foods that give you gas. Exercise regularly. Drink plenty of fluids. To help prevent GERD symptoms: Quit smoking. Reduce alcohol and foods that increase stomach acid. Don't use aspirin or xjmp-kpy-lgqnhtu pain and fever medicines, if possible. This includes nonsteroidal anti-inflammatory drugs (NSAIDs). Lose excess weight. Finish eating at least 2 hours before you go to bed or lie down. Raise the head of your bed. 1133-9902 [employer]. [address] [place] [address], [place] [address]. All rights reserved. This information is not intended as a substitute for professional medical care. Always follow your healthcare professional's instructions. Additional Information VACCINATE! IT SAVES LIVES! Members of the community who have not yet received the COVID-19 vaccine and would like to receive it can visit one of [facility] vaccine clinics. There are many vaccine clinic locations within the [facility]. For locations and available times, please visit [email or web address] It is important to note that some COVID mobile vaccine clinics are held outdoors and may be canceled in rainy or stormy conditions. To learn more about pediatric vaccinations (ages 5-11), we invite you to visit the [facility] webpage. [email or web address] [email or web address] To learn more about the COVID-19 vaccine, we invite you to visit the CDC website for a list of frequently asked questions. https://www.cdc.gov/coronavirus/ 2019-ncov/vaccines/faq.html [email or web address] Patient Portal Access Instructions: Stay connected with your healthcare team and access your personal medical information anytime with the [email or web address] Patient Portal. If you would like a full copy of your medical records please contact the [facility] Medical Records Department Friday through Friday between 8a.m. and 4:30p.m. Please follow the directions below to access the portal: 1.Access the email account you provided upon registration to the hospital.2.Look for an invitation email from [facility].3.Open the email and access the invitation link: Accept Invitation to [email or web address].Fill in the required rico to create your account. To access your account, visit [email or web address] or scan the QR code above. Click the blue button labeled Access Patient Portal and then log in with the username and password that you created in the steps above. You can then view a summary of results, a summary of your visits, and the ability to download your summaries to your computer or send the information securely to a physician. Remember that your healthcare information is confidential, so carefully consider who you will allow to register on the [email or web address] Patient Portal for access to your information. You can also access the [employer] Patient Portal on the [employer] eder. Simply click on Health Records under Health Data and then click on the [employer] logo. HOW TO SAFELY DISPOSE OF PRESCRIPTION MEDICATIONS Please use one of the following methods to safely dispose of your unused medications. 1.Use a drug disposal kit: the drug disposal pouch allows you to safely discard your old and unused drugs. Ask your nurse to give you one when you are discharged.2.Visit a local take-back location: Many local pharmacies and police departments have programs that collect old and unwanted prescription drugs. Call your local pharmacy or go to http://Aristotl.CareDox/0D2Am5h to find one close to you.3.Make use of household items: Use cat litter or old coffee grounds to dispose medications if other options are not available. Mix your drugs with these household products, seal them in an airtight container and throw it into the garbage. Call [facility]: [phone] to be sure your drugs can be disposed of in this way. Some medicines may require a different approach.4.Never flush your medications down the toilet. IF YOU HAVE BEEN PRESCRIBED AN OPIOIDS FOR PAIN If you have been prescribed an opioid (such as hydrocodone, oxycodone or morphine), it is critical to understand the possible side effects and risks of opioid pain medications. Even when taken as directed, opioids can have several side effects including: Tolerance, meaning you might need to take more of a medication for the same pain relief. Nausea, vomiting and/or constipation. Sleepiness, dizziness, dry mouth, confusion, depression or itching. Physical dependence, meaning you have withdrawal symptoms when a medication is stopped ? this can develop within a few days. KNOW YOUR RESPONSIBILITIES It is important to know exactly how much and how often to take the opioid pain medications you are prescribed. Never take opioids in higher amounts or more often than prescribed. Do not combine opioids with alcohol or other drugs that cause drowsiness, such as benzodiazepines, also known as benzos, including diazepam and alprazolam, muscle relaxants or sleep aids. Never sell or share prescription opioids. This is illegal. Store opioids in a secure place and out of reach of others (including children, family, friends and visitors). The last page(s) of this document has been signed and retained as a CHART COPY Signatures Patient Education Materials Abdominal Pain Medication Leaflets ondansetron (oral), pantoprazole (oral/injection), lansoprazole My discharge plan and instructions have been reviewed and explained to me and I,KARLIE GOVEA understand my current condition and have read and understand these discharge instructions. I have received a written copy of the plan/instructions. If I have questions, I am aware that I should contact my doctor. 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 Multiplanar reformatted images are provided for review. Automated exposure control, iterative reconstruction, and/or weight based adjustment of the mA/kV was utilized to reduce the radiation dose to as low as reasonably achievable. COMPARISON: CT abdomen/pelvis 05/03/2025 HISTORY: ORDERING SYSTEM PROVIDED HISTORY: Reason for Exam: Abdominal pain, acute, nonlocalized FINDINGS: Hypoattenuating liver in keeping with hepatic steatosis. Surgically absent gallbladder. The pancreas, spleen, and bilateral adrenal glands are unremarkable. The kidneys enhance symmetrically.No hydronephrosis.Nonobstructive right nephrolithiasis.Similar appearing left renal cysts The urinary bladder is without wall thickening or focal mass.Surgically absent uterus. No acute abnormality of the stomach or small bowel. Colonic wall thickening. Minimal amount of adjacent infiltrative stranding. Unremarkable appendix. No pathologically enlarged or aggressive appearing lymph nodes. Nonaneurysmal mildly atherosclerotic aortoiliac arteries. No acute osseous abnormality.Degenerative changes, most notably moderate at L2-3. 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 No acute abnormality within the partially visualized lower thorax. IMPRESSION: Colonic wall thickening. Consider infectious or inflammatory colitis. Interpreted by: Lara Gray Preliminary Report By: Lara Gray Electronically signed By Lara Gray Dictated Date: 07/16/2025 3:29:11 PM Prelim Date: 07/16/2025 3:40:03 PM Sign Date: 07/16/2025 3:40:03 PM Ordering Provider: JERICHO SULTANA [facility]11-08-2025 Note* Exam Date Time Procedure Performing Provider Status 07/16/25 2:32 PM EKG [ED AOH] - CV JERICHO SULTANA MD; Auth (Verified) ECG Final Report Sinus tachycardia Electronic Signature: JERICHO SULTANA MD 07/16/2025 16:04:59 [facility]08-27-2025 Hospital Discharge instructions Patient Education 05/03/2025 23:17:00 Muscle Strain, Abdomen Muscle Strain in the Abdomen A muscle strain is a stretching or tearing of the muscle fibers. It is also called a pulled muscle.The abdomen is protected by a thick wall of muscle in the front and sides. These muscles help with twisting and bending forward. Too much coughing, lifting heavy objects, or sudden jerking movements can sometimes cause a muscle strain in the abdomen. This causes pain that is worse when you move. The area may also feel tender or look swollen and bruised. Home care Apply an ice pack over the injured area for 15 to 20 minutes every 3 to 6 hours. Do this for the first 24 to 48 hours. You can make an ice pack by filling a plastic bag that seals at the top with icecubes and then wrapping it with a thin towel. Be careful not to injure your skin with the ice treatments. Ice should never be applied directly to skin. Continue the use of ice packs for relief of pain and swelling as needed. After 48 hours, apply heat (warm shower or warm bath) for 15 to 20 minutesseveral times a day, or alternate ice and heat. You may use fzcv-chq-hwxxrms pain medicine to control pain, unless another pain medicine was prescribed. If you have liver or kidney disease, a stomach ulcer or gastrointestinal bleeding, talk with your healthcare provider before using these medicines. Follow-up care Follow up with your healthcare provider, or as advised. Call 911 Call 911 if you have: Weakness, lightheaded, or faint Chest pain When to seek medical advice Call your healthcare provider right away if any of these occur: Pain gets worse or moves to the right lower abdomen, just below the waistline Fever of 100.4 F (38 C) or higher, or chills, or as directed by your healthcare provider Vomiting Severe abdominal pain that spreads to the back or toward the groin Blood in the urine Unexpected vaginal bleeding in women [id number] [employer]. [address] [place] [address]. All rights reserved. This information is not intended as a substitute for professional medical care. Always follow yourhealthcare professional's instructions. Follow Up Care 05/03/2025 18:57:05 With:Go to emergency room if symptoms worsen Address:Unknown When:2-4 days With:LIBBY SUAZO DO Address: [address] [place] [phone] When:2-4 days [facility] 08-26-2025 Note Discharge Instructions Thank you for allowing [facility] to assist you with your healthcare needs. The following is importantdischarge information regarding your hospital visit. Diagnosis from Today's Visit Abdominal wall strain What to Do Next Instructions from Your Care Team Take anti-inflammatory such as ibuprofen/Motrin or can use Tylenol as well for discomfort during the day, you were prescribed short course of pain medication to be taken for breakthrough or severe pain. Do not drive or operate any heavy machinery while taking this pain medication. Follow-up with your primary provider within the next week for repeat assessment. If symptoms acutely worsen return tot emergency department for further evaluation. No qualifying data available. Post Acute Orders No qualifying data available. You Need to Schedule the Following Appointments Follow Up with Go to emergency room if symptoms worsen When:Within 2-4 days Follow Up with LIBBY SUAZO DO When:Within 2-4 days Where:[address] [place] [id number] [phone] Allergies NKA Medications Please ask your primary doctor or pharmacist before taking any other medication not listed, including over the counter drugs, herbal medications, vitamins and or supplements as they may interact withyour home medications. What How Much When Why Instructions Last Dose New acetaminophen-oxyCODONE (Percocet 5 mg-325 mg oral tablet) 1 tab(s) by mouth Every 6 hours as needed for for pain Abdominal wall strain Duration: 3 Days Printed Prescription Unchanged ARIPiprazole (ARIPiprazole 15 mg oral tablet) 1 tab(s) by mouth Daily at bedtime TAKE ONE TABLET BY MOUTH EVERY NIGHT AT BEDTIME Unchanged diclofenac (diclofenac sodium 100 mg oral tablet, extended release) See instructions Foot pain, right Navicular fracture, foot (right) 2 tab(s) Oral in AM, 1 tab in PM Unchanged docusate (docusate sodium 100 mg oral capsule) 1 cap by mouth Once a day as needed for for constipation Unchanged empagliflozin (Jardiance 25 mg oral tablet) 1 tab(s) by mouth Once a day (in the morning) Unchanged fluticasone nasal (Flonase 50 mcg/ inh nasal spray) 1 spray(s) each nostril Two (2) times a day Nasal congestion Unchanged gabapentin (gabapentin 800 mg oral tablet) 1 tab(s) by mouth Three (3) times a day Chronic pain Osteoarthritis Duration: 30 Days Unchanged glipiZIDE (glipiZIDE 10 mg oral tablet, extended release) 1 tab(s) by mouth Once a day Duration: 100 Days TAKE ONE TABLET BY MOUTH DAILY Unchanged levocetirizine (levocetirizine 5 mg oral tablet) 1 tab(s) by mouth Daily at bedtime Nasal congestion Unchanged metFORMIN (metFORMIN 1000 mg oral tablet (IR)) 1 tab(s) by mouth Two (2) times a day Duration: 100 Days Unchanged nortriptyline (nortriptyline 25 mg oral capsule) 2 cap by mouth Once a day Unchanged pantoprazole (pantoprazole 40 mg oral enteric coated tablet) 1 tab(s) by mouth Once a day Unchanged sertraline (sertraline 100 mg oral tablet) 1 tab(s) by mouth Once a day Duration: 100 Days Please take this list to your next doctor s visit. Bring all medications you take, including over the counter medications, herbals and other supplements with you to your doctor s visit. Patients and families are reminded to discard old lists and to update any records with all medication providers or retail pharmacies. Education Materials Muscle Strain in the Abdomen A muscle strain is a stretching or tearing of the muscle fibers. It is also called a pulled muscle.The abdomen is protected by a thick wall of muscle in the front and sides. These muscles help with twisting and bending forward. Too much coughing, lifting heavy objects, or sudden jerking movements can sometimes cause a muscle strain in the abdomen. This causes pain that is worse when you move. The area may also feel tender or look swollen and bruised. Home care Apply an ice pack over the injured area for 15 to 20 minutes every 3 to 6 hours. Do this for the first 24 to 48 hours. You can make an ice pack by filling a plastic bag that seals at the top with icecubes and then wrapping it with a thin towel. Be careful not to injure your skin with the ice treatments. Ice should never be applied directly to skin. Continue the use of ice packs for relief of pain and swelling as needed. After 48 hours, apply heat (warm shower or warm bath) for 15 to 20 minutesseveral times a day, or alternate ice and heat. You may use zoax-hyv-uotpcdm pain medicine to control pain, unless another pain medicine was prescribed. If you have liver or kidney disease, a stomach ulcer or gastrointestinal bleeding, talk with your healthcare provider before using these medicines. Follow-up care Follow up with your healthcare provider, or as advised. Call 911 Call 911 if you have: Weakness, lightheaded, or faint Chest pain When to seek medical advice Call your healthcare provider right away if any of these occur: Pain gets worse or moves to the right lower abdomen, just below the waistline Fever of 100.4 F (38 C) or higher, or chills, or as directed by your healthcare provider Vomiting Severe abdominal pain that spreads to the back or toward the groin Blood in the urine Unexpected vaginal bleeding in women [phone] [employer]. [address] [place] [address], [place] [address]. All rights reserved. This information is not intended as a substitute for professional medical care. Always follow yourhealthcare professional's instructions. Additional Information VACCINATE! IT SAVES LIVES! Members of the community who have not yet received the COVID-19 vaccine and would like to receive it can visit one of [facility] vaccine clinics. There are many vaccine clinic locations within the [facility]. For locations and available times, please visit [email or web address] It is important to note that some COVID mobile vaccine clinics are held outdoors and may be canceled in rainy or stormy conditions. To learn more about pediatric vaccinations (ages 5-11), we invite you to visit the [facility] webpage. [email or web address]/[email or web address] learn more about the COVID-19 vaccine, we invite you to visit the CDC website for a list of frequently asked questions. https://www.cdc.gov/coronavirus/2019-ncov/vaccines/faq.html [email or web address] Patient Portal Access Instructions: Stay connected with your healthcare team and access your personal medical information anytime with the [email or web address] Patient Portal. If you would like a full copy of your medical records please contact the [facility] Medical Records Department Friday through Friday between 8a.m. and 4:30p.m. Please follow the directions below to access the portal: 1.Access the email account you provided upon registration to the hospital.2.Look for an invitation email from [facility].3.Open the email and access the invitation link: Accept Invitation to [email or web address].Fill in the required rico to create your account. Sign into [email or web address] with your username and password that you created in the above steps to stay up to date. You can then view a summary of results, a summary of your visits, and the ability to download your summaries to your computer or send the information securely to a physician. Remember that your healthcare information is confidential, so carefully consider who you will allow to register on the [email or web address] Patient Portal for access to your information. You can also access the [employer] Patient Portal on the [employer] eder. Simply click on Health Records under [employer] and then click on the [employer] logo. HOW TO SAFELY DISPOSE OF PRESCRIPTION MEDICATIONS Please use one of the following methods to safely dispose of your unused medications. 1.Use a drug disposal kit: the drug disposal pouch allows you to safely discard your old and unuseddrugs. Ask your nurse to give you one when you are discharged.2.Visit a local take-back location: Many local pharmacies and police departments have programs that collect old and unwanted prescriptiondrugs. Call your local pharmacy or go to http://Aristotl.CareDox/0X3Gn0w to find one close to you.3.Make use of household items: Use cat litter or old coffee grounds to dispose medications if other options arenot available. Mix your drugs with these household products, seal them in an airtight container andthrow it into the garbage. Call [facility]: [phone] to be sure your drugs can be disposed of in this way. Some medicines may require a different approach.4.Never flush your medications down the toilet. IF YOU HAVE BEEN PRESCRIBED AN OPIOIDS FOR PAIN If you have been prescribed an opioid (such as hydrocodone, oxycodone or morphine), it is critical to understand the possible side effects and risks of opioid pain medications. Even when taken as directed, opioids can have several side effects including: Tolerance, meaning you might need to take more of a medication for the same pain relief. Nausea, vomiting and/or constipation. Sleepiness, dizziness, dry mouth, confusion, depression or itching. Physical dependence, meaning you have withdrawal symptoms when a medication is stopped ? this can develop within a few days. KNOW YOUR RESPONSIBILITIES It is important to know exactly how much and how often to take the opioid pain medications you are prescribed. Never take opioids in higher amounts or more often than prescribed. Do not combine opioids with alcohol or other drugs that cause drowsiness, such as benzodiazepines, also known as benzos,including diazepam and alprazolam, muscle relaxants or sleep aids. Never sell or share prescriptionopioids. This is illegal. Store opioids in a secure place and out of reach of others (including children, family, friends and visitors). The last page(s) of this document has been signed and retained as a CHART COPY Signatures Patient Education Materials Muscle Strain, Abdomen Medication Leaflets My discharge plan and instructions have been reviewed and explained to me and IXUAN ELLEN R understand my current condition and have read and understand these discharge instructions. I have received a written copy of the plan/instructions. If I have questions, I am aware that I should contact my doctor. 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 Multiplanar reformatted images are provided for review. Automated exposure control, iterative reconstruction, and/or weight based adjustment of the mA/kV was utilized to reduce the radiation dose to as low as reasonably achievable. HISTORY: ORDERING SYSTEM PROVIDED HISTORY: Reason for Exam: Hernia suspected, abdominal wall, left lower quadrant pain after physical strain FINDINGS: There is no ventral some a periumbilical or inguinal hernia on either side. No sign of bowel obstruction or perforation. Normal appendix. No significant diverticulosis or diverticulitis of the colon. No ascites or other extraluminal fluid collection. No abdominal wall hematoma. Low-density of the liver suggests fatty infiltration without obvious focal lesion. Portal and hepatic veins are patent. No bile duct dilatation gallbladder is absent. The spleen, pancreas, adrenal glands and right kidney are unremarkable. The left kidney has a couple of simple appearing cysts larger parapelvic cyst is at least 3.5 cm. Symmetric renal enhancement with no obstruction. No ureteral dilatation or stone on either side. Pelvic images show normal bladder. Uterus seems to be absent. No adnexal mass is seen. There is no obvious acute skeletal abnormality. Findings of avascular necrosis in the femoral heads bilaterally is a nonacute finding without cortical collapse. There are degenerative changes of the spine with no obvious acute compression fracture. There is some central canal and foraminal compromise at L2-3. Paraspinal musculature is symmetric and unremarkable. The included lung bases are noncontributory. IMPRESSION: No ventral hernia or acute process is seen. Suspect fatty liver, correlate with LFTs. Incidental bilateral hip avascular necrosis. Other incidental findings as described. Interpreted by: Aniya Sanchez MD Preliminary Report By: Aniya Sanchez MD Electronically signed By Aniya Sanchez MD Dictated Date: 05/03/2025 10:57:05 PM Prelim Date: 05/03/2025 11:00:50 PM Sign Date: 05/03/2025 11:00:50 PM Ordering Provider: [facility]07-08-2025 Hospital Discharge instructions Patient Education 03/15/2025 15:47:14 Walker Boot Aircast Sp-Walker Boot Traditional splints and casts for the foot and ankle protect the injury by preventing movement at the joints. However, many injuries heal better and faster if the injured joint can be moved, but be protected at the same time. This is the reason for using an Aircast Walker boot. This is a short boot that supports and protects to the foot and ankle while allowing you to walk. It has padded air cells that provide compression and help circulation. It is used for both foot and ankle injuries both sprains and minor fractures. Ankle and foot sprains can take 4 to 6 weeks or longer to heal. People with severe injuries or those over age 60 may need more time to heal. During that time, you are prone to re-injury by suddenly twisting your foot or ankle again while the ligaments are still weak. When treating a sprain, the [employer] Walker boot should be worn whenever walking for at least 4 weeks, or as long as you continue to have ankle pain. Talk to your healthcare provider for specific advice about the treatment of your condition. Air-Stirrup and SP-Walker are trademarks of [employer]. For more information about their products, see www.[employer]anch[employer]. [phone] [employer]. [address] [place] [address], [place] [address]. All rights reserved. This information is not intended as a substitute for professional medical care. Always follow yourhealthcare professional's instructions. 03/15/2025 15:43:14 Ankle Sprain (Adult) Ankle Sprain (Adult) An ankle sprain is a stretching or tearing of the ligaments that hold the ankle joint together. There are no broken bones. An ankle sprain is a common injury for both children and adults. It happens when the ankle turns, twists, or rolls in an awkward way. This can be caused by a sports injury. Or it can happen from doing something as simple as stepping on an uneven surface. Ligaments are made of tough connective tissue. Normally, ligaments stretch a certain amount and then go back to their normal place. A sprain happens when a ligament is forced to stretch more than thenormal amount. A severe sprain can actually tear the ligaments. If you have a severe sprain, you may have felt or heard something like a pop when you were injured. Ankle sprains are given a grade depending on whether they are mild, moderate, or severe: Grade 1 sprain. A mild sprain with minor stretching and damage to the ligament. Grade 2 sprain. A moderate sprain where the ligament is partly torn. Grade 3 sprain. The most severe kind of sprain. The ligament is completely torn. Most sprains take about 4 to 6 weeks to heal. A severe sprain can take several months to recover. Your healthcare provider may order X-rays to be sure you don t have a fracture, or broken bone. The injured area will feel sore. Swelling and pain may make it hard to walk. You may need crutches if walking is painful. Or your provider may have you use a cast boot or air splint. This will dependon the grade of ankle sprain that you have. Home care For a Grade 1 sprain, use RICE (rest, ice, compression, and elevation): Rest your ankle. Don t walk on it. Ice should be used right away to help control swelling. Place an ice pack over the injured area for20 minutes. Do this every 3 to 6 hours for the first 24 to 48 hours. Keep using ice packs to ease pain and swelling as needed. To make an ice pack, put ice cubes in a plastic bag that seals at the top. Wrap the bag in a clean, thin towel or cloth. Never put ice or an ice pack directly on the skin. The ice pack can be put right on the cast, bandage, or splint. As the ice melts, be careful that thecast, bandage, or splint doesn t get wet. If you have a boot, open it to apply an ice pack, unless told otherwise by your provider. Compression devices help to control swelling. They also keep the ankle from moving and support yourinjured ankle. These devices include dressings, bandages, and wraps. Elevate or raise your ankle above the level of your heart when sitting or lying down. This is very important for the first 48 hours. Follow the RICE guidelines for a Grade 2 sprain. This type of sprain will take longer to heal. Yourprovider may have you wear a splint, cast, or brace to keep your ankle from moving. If you have a Grade 3 sprain, you are at risk for long-term ankle instability. In rare cases, surgery may be needed. Your provider may have you wear a short leg cast or a walking boot for 2 to 3 weeks. After 48 hours, it may be helpful to apply heat for 20 minutes several times a day. You can do thiswith a heating pad or warm compress. Or you may want to go back and forth between using ice and heat. Never apply heat directly to the skin. Always wrap the heating pad or warm compress in a clean, thin towel or cloth. You may use nizo-tjk-heigaid pain medicine (NSAIDS or nonsteroidal anti- inflammatory drugs) to control pain, unless another pain medicine was prescribed. Talk with your provider before using these medicines if you have chronic liver or kidney disease, or have ever had a stomach ulcer or gastrointestinal bleeding. Follow any rehabilitation exercises your provider gives you. These can help you be more flexible and improve your balance and coordination. This is helpful in preventing long-term ankle problems. Prevention To help prevent ankle sprains, it s important to have good strength, balance, and flexibility. Be sure to: Always warm up before you exercise or do something very active Be careful when walking or running on uneven or cracked surfaces Wear shoes that are in good condition and fit well Listen to your body s signals to slow down when you are in pain or tired Follow-up care Any X-rays you had today don t show any broken bones, breaks, or fractures. Sometimes fractures dont show up on the first X-ray. Bruises and sprains can sometimes hurt as much as a fracture. These injuries can take time to heal completely. If your symptoms don t get better or they get worse, talk with your healthcare provider. You may need a repeat X-ray. Follow up with your healthcare provider, or as advised. Check for any warning signs listed below. When to seek medical advice Call your healthcare provider right away if any of these occur: Fever of 100.4 F (38 C) or higher, or as directed by your healthcare provider Chills The injury doesn t seem to be healing The swelling comes back The cast or splint has a bad smell The plaster cast or splint gets wet or soft The fiberglass cast or splint gets wet and does not dry for 24 hours The pain or swelling increases, or redness appears Your toes become cold, blue, numb, or tingly The skin is discolored (looks blue, purple, or suarez), has blisters, or is irritated You re-injure your ankle [phone] [employer]. [address] [place] [address]. All rights reserved. This information is not intended as a substitute for professional medical care. Always follow yourhealthcare professional's instructions. Follow Up Care 03/15/2025 13:04:41 With:LIBBY SUAZO DO Address: [address] [place] [address] [phone] When:2-4 days [facility] 07-08-2025 Note Discharge Instructions Thank you for allowing [facility] to assist you with your healthcare needs. The following is importantdischarge information regarding your hospital visit. What to Do Next Instructions from Your Care Team Discharge Home Equipment - Ordered -- Walking boot Left, 99 month(s), 03/15/25 15:41:00 EDT Post Acute Orders No qualifying data available. You Need to Schedule the Following Appointments Follow Up with LIBBY SUAZO DO When:Within 2-4 days Where:[address] [place] [address] [phone] Allergies NKA Medications Please ask your primary doctor or pharmacist before taking any other medication not listed, including over the counter drugs, herbal medications, vitamins and or supplements as they may interact withyour home medications. What How Much When Why Instructions Last Dose Unchanged ARIPiprazole (ARIPiprazole 15 mg oral tablet) 1 tab(s) by mouth Daily at bedtime TAKE ONE TABLET BY MOUTH EVERY NIGHT AT BEDTIME Unchanged empagliflozin (Jardiance 25 mg oral tablet) 1 tab(s) by mouth Once a day (in the morning) Unchanged fluticasone nasal (Flonase 50 mcg/ inh nasal spray) 1 spray(s) each nostril Two (2) times a day Nasal congestion Unchanged gabapentin (gabapentin 800 mg oral tablet) 1 tab(s) by mouth Three (3) times a day Chronic pain Osteoarthritis Duration: 30 Days Unchanged glipiZIDE (glipiZIDE 10 mg oral tablet, extended release) 1 tab(s) by mouth Once a day Duration: 100 Days TAKE ONE TABLET BY MOUTH DAILY Unchanged levocetirizine (levocetirizine 5 mg oral tablet) 1 tab(s) by mouth Daily at bedtime Nasal congestion Unchanged metFORMIN (metFORMIN 1000 mg oral tablet (IR)) 1 tab(s) by mouth Two (2) times a day Duration: 100 Days Unchanged nortriptyline (nortriptyline 10 mg oral capsule) 1 cap by mouth Daily at bedtime Chronic pain Bipolar 2 disorder after 7-14 days may increase to 20mg dosing, or stay at 10mg dosing Unchanged sertraline (sertraline 100 mg oral tablet) 1 tab(s) by mouth Once a day Duration: 100 Days Please take this list to your next doctor s visit. Bring all medications you take, including over the counter medications, herbals and other supplements with you to your doctor s visit. Patients and families are reminded to discard old lists and to update any records with all medication providers or retail pharmacies. Education Materials Aircast Sp-Walker Boot Traditional splints and casts for the foot and ankle protect the injury by preventing movement at the joints. However, many injuries heal better and faster if the injured joint can be moved, but be protected at the same time. This is the reason for using an Aircast Walker boot. This is a short boot that supports and protects to the foot and ankle while allowing you to walk. It has padded air cells that provide compression and help circulation. It is used for both foot and ankle injuries both sprains and minor fractures. Ankle and foot sprains can take 4 to 6 weeks or longer to heal. People with severe injuries or those over age 60 may need more time to heal. During that time, you are prone to re-injury by suddenly twisting your foot or ankle again while the ligaments are still weak. When treating a sprain, the [employer] Walker boot should be worn whenever walking for at least 4 weeks, or as long as you continue to have ankle pain. Talk to your healthcare provider for specific advice about the treatment of your condition. Air-Stirrup and SP-Walker are trademarks of [employer]. For more information about their products, see www.[employer]. [phone] [employer]. [address] [place] [address]. All rights reserved. This information is not intended as a substitute for professional medical care. Always follow yourhealthcare professional's instructions. Ankle Sprain (Adult) An ankle sprain is a stretching or tearing of the ligaments that hold the ankle joint together. There are no broken bones. An ankle sprain is a common injury for both children and adults. It happens when the ankle turns, twists, or rolls in an awkward way. This can be caused by a sports injury. Or it can happen from doing something as simple as stepping on an uneven surface. Ligaments are made of tough connective tissue. Normally, ligaments stretch a certain amount and then go back to their normal place. A sprain happens when a ligament is forced to stretch more than thenormal amount. A severe sprain can actually tear the ligaments. If you have a severe sprain, you may have felt or heard something like a pop when you were injured. Ankle sprains are given a grade depending on whether they are mild, moderate, or severe: Grade 1 sprain. A mild sprain with minor stretching and damage to the ligament. Grade 2 sprain. A moderate sprain where the ligament is partly torn. Grade 3 sprain. The most severe kind of sprain. The ligament is completely torn. Most sprains take about 4 to 6 weeks to heal. A severe sprain can take several months to recover. Your healthcare provider may order X-rays to be sure you don t have a fracture, or broken bone. The injured area will feel sore. Swelling and pain may make it hard to walk. You may need crutches if walking is painful. Or your provider may have you use a cast boot or air splint. This will dependon the grade of ankle sprain that you have. Home care For a Grade 1 sprain, use RICE (rest, ice, compression, and elevation): Rest your ankle. Don t walk on it. Ice should be used right away to help control swelling. Place an ice pack over the injured area for20 minutes. Do this every 3 to 6 hours for the first 24 to 48 hours. Keep using ice packs to ease pain and swelling as needed. To make an ice pack, put ice cubes in a plastic bag that seals at the top. Wrap the bag in a clean, thin towel or cloth. Never put ice or an ice pack directly on the skin. The ice pack can be put right on the cast, bandage, or splint. As the ice melts, be careful that thecast, bandage, or splint doesn t get wet. If you have a boot, open it to apply an ice pack, unless told otherwise by your provider. Compression devices help to control swelling. They also keep the ankle from moving and support yourinjured ankle. These devices include dressings, bandages, and wraps. Elevate or raise your ankle above the level of your heart when sitting or lying down. This is very important for the first 48 hours. Follow the RICE guidelines for a Grade 2 sprain. This type of sprain will take longer to heal. Yourprovider may have you wear a splint, cast, or brace to keep your ankle from moving. If you have a Grade 3 sprain, you are at risk for long-term ankle instability. In rare cases, surgery may be needed. Your provider may have you wear a short leg cast or a walking boot for 2 to 3 weeks. After 48 hours, it may be helpful to apply heat for 20 minutes several times a day. You can do thiswith a heating pad or warm compress. Or you may want to go back and forth between using ice and heat. Never apply heat directly to the skin. Always wrap the heating pad or warm compress in a clean, thin towel or cloth. You may use leey-awj-orymfag pain medicine (NSAIDS or nonsteroidal anti- inflammatory drugs) to control pain, unless another pain medicine was prescribed. Talk with your provider before using these medicines if you have chronic liver or kidney disease, or have ever had a stomach ulcer or gastrointestinal bleeding. Follow any rehabilitation exercises your provider gives you. These can help you be more flexible and improve your balance and coordination. This is helpful in preventing long-term ankle problems. Prevention To help prevent ankle sprains, it s important to have good strength, balance, and flexibility. Be sure to: Always warm up before you exercise or do something very active Be careful when walking or running on uneven or cracked surfaces Wear shoes that are in good condition and fit well Listen to your body s signals to slow down when you are in pain or tired Follow-up care Any X-rays you had today don t show any broken bones, breaks, or fractures. Sometimes fractures dont show up on the first X-ray. Bruises and sprains can sometimes hurt as much as a fracture. These injuries can take time to heal completely. If your symptoms don t get better or they get worse, talk with your healthcare provider. You may need a repeat X-ray. Follow up with your healthcare provider, or as advised. Check for any warning signs listed below. When to seek medical advice Call your healthcare provider right away if any of these occur: Fever of 100.4 F (38 C) or higher, or as directed by your healthcare provider Chills The injury doesn t seem to be healing The swelling comes back The cast or splint has a bad smell The plaster cast or splint gets wet or soft The fiberglass cast or splint gets wet and does not dry for 24 hours The pain or swelling increases, or redness appears Your toes become cold, blue, numb, or tingly The skin is discolored (looks blue, purple, or suarez), has blisters, or is irritated You re-injure your ankle [id number] [employer]. [address] [place] [address]. All rights reserved. This information is not intended as a substitute for professional medical care. Always follow yourhealthcare professional's instructions. Additional Information VACCINATE! IT SAVES LIVES! Members of the community who have not yet received the COVID-19 vaccine and would like to receive it can visit one of [facility] vaccine clinics. There are many vaccine clinic locations within the [facility]. For locations and available times, please visit [email or web address]/. It is important to note that some COVID mobile vaccine clinics are held outdoors and may be canceled in rainy or stormy conditions. To learn more about pediatric vaccinations (ages 5-11), we invite you to visit the [facility] webpage. [email or web address].[email or web address]/pages/[email or web address]-Krvoo-Dxhlqnqxvos-[email or web address]-Kwzvt-Vtt stions.htmlTo learn more about the COVID-19 vaccine, we invite you to visit the CDC website for a list of frequently asked questions. https://www.cdc.gov/coronavirus/2019-ncov/vaccines/faq.html [email or web address] Patient Portal Access Instructions: Stay connected with your healthcare team and access your personal medical information anytime with the [email or web address] Patient Portal. If you would like a full copy of your medical records please contact the [facility] Medical Records Department Friday through Friday between 8a.m. and 4:30p.m. Please follow the directions below to access the portal: 1.Access the email account you provided upon registration to the [facility].2.Look for an invitation email from [facility].3.Open the email and access the invitation link: Accept Invitation to [email or web address].Fill in the required rico to create your account. Sign into [email or web address] with your username and password that you created in the above steps to stay up to date. You can then view a summary of results, a summary of your visits, and the ability to download your summaries to your computer or send the information securely to a physician. Remember that your healthcare information is confidential, so carefully consider who you will allow to register on the [email or web address] Patient Portal for access to your information. You can also access the [email or web address] Patient Portal on the iwoca. Simply click on Health Records under [employer] and then click on the [employer] logo. HOW TO SAFELY DISPOSE OF PRESCRIPTION MEDICATIONS Please use one of the following methods to safely dispose of your unused medications. 1.Use a drug disposal kit: the drug disposal pouch allows you to safely discard your old and unuseddrugs. Ask your nurse to give you one when you are discharged.2.Visit a local take-back location: Many local pharmacies and police departments have programs that collect old and unwanted prescriptiondrugs. Call your local pharmacy or go to http://bit.CareDox/6O1Qh9v to find one close to you.3.Make use of household items: Use cat litter or old coffee grounds to dispose medications if other options arenot available. Mix your drugs with these household products, seal them in an airtight container andthrow it into the garbage. Call [facility]: [phone] to be sure your drugs can be disposed of in this way. Some medicines may require a different approach.4.Never flush your medications down the toilet. IF YOU HAVE BEEN PRESCRIBED AN OPIOIDS FOR PAIN If you have been prescribed an opioid (such as hydrocodone, oxycodone or morphine), it is critical to understand the possible side effects and risks of opioid pain medications. Even when taken as directed, opioids can have several side effects including: Tolerance, meaning you might need to take more of a medication for the same pain relief. Nausea, vomiting and/or constipation. Sleepiness, dizziness, dry mouth, confusion, depression or itching. Physical dependence, meaning you have withdrawal symptoms when a medication is stopped ? this can develop within a few days. KNOW YOUR RESPONSIBILITIES It is important to know exactly how much and how often to take the opioid pain medications you are prescribed. Never take opioids in higher amounts or more often than prescribed. Do not combine opioids with alcohol or other drugs that cause drowsiness, such as benzodiazepines, also known as benzos,including diazepam and alprazolam, muscle relaxants or sleep aids. Never sell or share prescriptionopioids. This is illegal. Store opioids in a secure place and out of reach of others (including children, family, friends and visitors). The last page(s) of this document has been signed and retained as a CHART COPY Signatures Patient Education Materials Walker Boot Ankle Sprain (Adult) Medication Leaflets My discharge plan and instructions have been reviewed and explained to me and I,KARLIE GOVEA understand my current condition and have read and understand these discharge instructions. I have received a written copy of the plan/instructions. If I have questions, I am aware that I should contact my doctor. 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 No other fracture or dislocation is seen in the foot. There is no radiopaque foreign body. There is mild superficial soft tissue swelling overlying the dorsum of the foot. Achilles spur. Mild diffuse osteopenia. 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 No other fracture or dislocation is seen. I have personally reviewed the images of this examination and agree with the resident's findings and interpretation. Interpreted by: Aniya Sanchez MD Preliminary Report By: Tamera Rodríguez MD Electronically signed By Aniya Sanchez MD Dictated Date: 03/15/2025 2:29:45 PM Prelim Date: 03/15/2025 3:52:39 PM Sign Date: 03/15/2025 3:52:39 PM Ordering Provider: ABI LOPEZ Interpreted by: Aniya Sanchez MD Preliminary Report By: Tamera Rodríguez MD Electronically signed By Aniya Sanchez MD Dictated Date: 03/15/2025 2:29:45 PM Prelim Date: 03/15/2025 3:52:39 PM Sign Date: 03/15/2025 3:52:39 PM Ordering Provider: ABI LOPEZ [facility]07-08-2025 Note* Exam Date Time Procedure Performing Provider Status 03/15/25 1:57 PM XR Hand Minimum 3 Views Left MONTY SANCHEZ MD; Auth (Verified) [id number] ORIGINAL EXAMINATION: THREE XRAY VIEWS OF THE LEFT HAND03/15/2025 1:58 pm COMPARISON: None HISTORY: ORDERING SYSTEM PROVIDED HISTORY: Reason for Exam: trauma fall, pain FINDINGS: No acute fracture or dislocation is identified. The joint spaces are maintained. There is no radiopaque foreign body. There is mild periarticular osteopenia. Mild degenerative changes in the hand and wrist. IMPRESSION: No acute fracture or dislocation. I have personally reviewed the images of this examination and agree with the resident's findings and interpretation. Interpreted by: Aniya Sanchez MD Preliminary Report By: Tamera Rodríguez MD Electronically signed By Aniya Sanchez MD Dictated Date: 03/15/2025 2:11:56 PM Prelim Date: 03/15/2025 2:19:56 PM Sign Date: 03/15/2025 2:19:56 PM Ordering Provider: ABI LOPEZ Interpreted by: Aniya Sanchez MD Preliminary Report By: Tamera Rodríguez MD Electronically signed By Aniya Sanchez MD Dictated Date: 03/15/2025 2:11:56 PM Prelim Date: 03/15/2025 2:19:56 PM Sign Date: 03/15/2025 2:19:56 PM Ordering Provider: ABI LOPEZ [facility]05-11-2025 Hospital Discharge instructions Patient Education 01/16/2025 01:21:11 Bladder Infection, Female (Adult) Bladder Infection, Female (Adult) Urine is normally doesn't have any bacteria in it. But bacteria can get into the urinary tract fromthe skin around the rectum. Or they can travel in the blood from elsewhere in the body. Once they are in your urinary tract, they can cause infection in the urethra (urethritis), the bladder (cystitis), or the kidneys (pyelonephritis). The most common place for an infection is in the bladder. This is called a bladder infection. This is one of the most common infections in women. Most bladder infections are easily treated. They are not serious unless the infection spreads to the kidney. The phrases bladder infection, UTI, and cystitis are often used to describe the same thing. But they are not always the same. Cystitis is an inflammation of the bladder. The most common cause of cystitis is an infection. Symptoms The infection causes inflammation in the urethra and bladder. This causes many of the symptoms. Themost common symptoms of a bladder infection are: Pain or burning when urinating Having to urinate more often than usual Urgent need to urinate Only a small amount of urine comes out Blood in urine Abdominal discomfort. This is usually in the lower abdomen above the pubic bone. Cloudy urine Strong- or bad-smelling urine Unable to urinate (urinary retention) Unable to hold urine in (urinary incontinence) Fever Loss of appetite Confusion (in older adults) Causes Bladder infections are not contagious. You can't get one from someone else, from a toilet seat, or from sharing a bath. The most common cause of bladder infections is bacteria from the bowels. The bacteria get onto the skin around the opening of the urethra. From there, they can get into the urine and travel up to thebladder, causing inflammation and infection. This usually happens because of: Wiping improperly after urinating. Always wipe from front to back. Bowel incontinence Procedures such as having a catheter inserted Older age Not emptying your bladder. This can allow bacteria a chance to grow in your urine. Dehydration Constipation Sex Use of a diaphragm for control Treatment Bladder infections are diagnosed by a urine test. They are treated with antibiotics and usually clear up quickly without complications. Treatment helps prevent a more serious kidney infection. Medicines Medicines can help in the treatment of a bladder infection: Take antibiotics until they are used up, even if you feel better. It is important to finish them tomake sure the infection has cleared. You can use acetaminophen or ibuprofen for pain, fever, or discomfort, unless another medicine was prescribed. If you have chronic liver or kidney disease, talk with your healthcare provider before using these medicines. Also talk with your provider if you've ever had a stomach ulcer or gastrointestinal bleeding, or are taking blood-thinner medicines. If you are given phenazopydridine to reduce burning with urination, it will cause your urine to become a bright orange color. This can stain clothing. Care and prevention These self-care steps can help prevent future infections: Drink plenty of fluids to prevent dehydration and flush out your bladder. Do this unless you must restrict fluids for other health reasons, or your doctor told you not to. Proper cleaning after going to the bathroom is important. Wipe from front to back after using the toilet to prevent the spread of bacteria. Urinate more often. Don't try to hold urine in for a long time. Wear loose-fitting clothes and cotton underwear. Avoid tight-fitting pants. Improve your diet and prevent constipation. Eat more fresh fruit and vegetables, and fiber, and less junk and fatty foods. Avoid sex until your symptoms are gone. Avoid caffeine, alcohol, and spicy foods. These can irritate your bladder. Urinate right after intercourse to flush out your bladder. If you use control pills and have frequent bladder infections, discuss it with your doctor. Follow-up care Call your healthcare provider if all symptoms are not gone after 3 days of treatment. This is especially important if you have repeat infections. If a culture was done, you will be told if your treatment needs to be changed. If directed, you cancall to find out the results. If X-rays were done, you will be told if the results will affect your treatment. Call 911 Call 911 if any of the following occur: Trouble breathing Hard to wake up or confusion Fainting or loss of consciousness Rapid heart rate When to seek medical advice Call your healthcare provider right away if any of these occur: Fever of 100.4 F (38.0 C) or higher, or as directed by your healthcare provider Symptoms are not better by the third day of treatment Back or belly (abdominal) pain that gets worse Repeated vomiting, or unable to keep medicine down Weakness or dizziness Vaginal discharge Pain, redness, or swelling in the outer vaginal area (labia) [id number] [employer]. [address] [place] [address]. All rights reserved. This information is not intended as a substitute for professional medical care. Always follow yourhealthcare professional's instructions. 01/16/2025 01:21:08 Otitis Media, Antibiotic Treatment (Adult) Middle Ear Infection (Adult) You have an infection of the middle ear, the space behind the eardrum. This is also called acute otitis media (AOM). Sometimes it is caused by the common cold. This is because congestion can block the internal passage (eustachian tube) that drains fluid from the middle ear. When the middle ear fills with fluid, bacteria can grow there and cause an infection. Oral antibiotics are used to treat this illness, not ear drops. Symptoms usually start to improve within 1 to 2 days of treatment. Home care The following are general care guidelines: Finish all of the antibiotic medicine given, even though you may feel better after the first few days. You may use xthu-ewh-vacmlpq medicine, such as acetaminophen or ibuprofen, to control pain and fever, unless something else was prescribed. If you have chronic liver or kidney disease or have ever had a stomach ulcer or gastrointestinal bleeding, talk with your healthcare provider before using these medicines. Do not give aspirin to anyone under 18 years of age who has a fever. It may cause severe illness or . Follow-up care Follow up with your healthcare provider, or as advised, in 2 weeks if all symptoms have not gotten better, or if hearing doesn't go back to normal within 1 month. When to seek medical advice Call your healthcare provider right away if any of these occur: Ear pain gets worse or does not improve after 3 days of treatment Unusual drowsiness or confusion Neck pain, stiff neck, or headache Fluid or blood draining from the ear canal Fever of 100.4 F (38 C) or as advised Seizure [id number] [employer]. [address] [place] [address]. All rights reserved. This information is not intended as a substitute for professional medical care. Always follow yourhealthcare professional's instructions. Follow Up Care 01/15/2025 22:49:59 With:CLIF FLANNERY MD Address: [address] [place] [id number]- When:2-4 days [facility] 05-11-2025 Note Discharge Instructions Thank you for allowing [facility] to assist you with your healthcare needs. The following is importantdischarge information regarding your hospital visit. Diagnosis from Today's Visit Otitis media UTI (urinary tract infection) What to Do Next Instructions from Your Care Team No qualifying data available. Post Acute Orders No qualifying data available. You Need to Schedule the Following Appointments Follow Up with CLIF FLANNERY MD When:Within 2-4 days Where:[address] [place] [id number]- Allergies NKA Medications Please ask your primary doctor or pharmacist before taking any other medication not listed, including over the counter drugs, herbal medications, vitamins and or supplements as they may interact withyour home medications. What How Much When Why Instructions Last Dose New amoxicillin-clavulanate (amoxicillin-clavulanate 875 mg-125 mg oral tablet) 1 tab(s) by mouth Every 12 hours Duration: 10 Days Printed Prescription Please take this list to your next doctor s visit. Bring all medications you take, including over the counter medications, herbals and other supplements with you to your doctor s visit. Patients and families are reminded to discard old lists and to update any records with all medication providers or retail pharmacies. Education Materials Bladder Infection, Female (Adult) Urine is normally doesn't have any bacteria in it. But bacteria can get into the urinary tract fromthe skin around the rectum. Or they can travel in the blood from elsewhere in the body. Once they are in your urinary tract, they can cause infection in the urethra (urethritis), the bladder (cystitis), or the kidneys (pyelonephritis). The most common place for an infection is in the bladder. This is called a bladder infection. This is one of the most common infections in women. Most bladder infections are easily treated. They are not serious unless the infection spreads to the kidney. The phrases bladder infection, UTI, and cystitis are often used to describe the same thing. But they are not always the same. Cystitis is an inflammation of the bladder. The most common cause of cystitis is an infection. Symptoms The infection causes inflammation in the urethra and bladder. This causes many of the symptoms. Themost common symptoms of a bladder infection are: Pain or burning when urinating Having to urinate more often than usual Urgent need to urinate Only a small amount of urine comes out Blood in urine Abdominal discomfort. This is usually in the lower abdomen above the pubic bone. Cloudy urine Strong- or bad-smelling urine Unable to urinate (urinary retention) Unable to hold urine in (urinary incontinence) Fever Loss of appetite Confusion (in older adults) Causes Bladder infections are not contagious. You can't get one from someone else, from a toilet seat, or from sharing a bath. The most common cause of bladder infections is bacteria from the bowels. The bacteria get onto the skin around the opening of the urethra. From there, they can get into the urine and travel up to thebladder, causing inflammation and infection. This usually happens because of: Wiping improperly after urinating. Always wipe from front to back. Bowel incontinence Procedures such as having a catheter inserted Older age Not emptying your bladder. This can allow bacteria a chance to grow in your urine. Dehydration Constipation Sex Use of a diaphragm for control Treatment Bladder infections are diagnosed by a urine test. They are treated with antibiotics and usually clear up quickly without complications. Treatment helps prevent a more serious kidney infection. Medicines Medicines can help in the treatment of a bladder infection: Take antibiotics until they are used up, even if you feel better. It is important to finish them tomake sure the infection has cleared. You can use acetaminophen or ibuprofen for pain, fever, or discomfort, unless another medicine was prescribed. If you have chronic liver or kidney disease, talk with your healthcare provider before using these medicines. Also talk with your provider if you've ever had a stomach ulcer or gastrointestinal bleeding, or are taking blood-thinner medicines. If you are given phenazopydridine to reduce burning with urination, it will cause your urine to become a bright orange color. This can stain clothing. Care and prevention These self-care steps can help prevent future infections: Drink plenty of fluids to prevent dehydration and flush out your bladder. Do this unless you must restrict fluids for other health reasons, or your doctor told you not to. Proper cleaning after going to the bathroom is important. Wipe from front to back after using the toilet to prevent the spread of bacteria. Urinate more often. Don't try to hold urine in for a long time. Wear loose-fitting clothes and cotton underwear. Avoid tight-fitting pants. Improve your diet and prevent constipation. Eat more fresh fruit and vegetables, and fiber, and less junk and fatty foods. Avoid sex until your symptoms are gone. Avoid caffeine, alcohol, and spicy foods. These can irritate your bladder. Urinate right after intercourse to flush out your bladder. If you use control pills and have frequent bladder infections, discuss it with your doctor. Follow-up care Call your healthcare provider if all symptoms are not gone after 3 days of treatment. This is especially important if you have repeat infections. If a culture was done, you will be told if your treatment needs to be changed. If directed, you cancall to find out the results. If X-rays were done, you will be told if the results will affect your treatment. Call 911 Call 911 if any of the following occur: Trouble breathing Hard to wake up or confusion Fainting or loss of consciousness Rapid heart rate When to seek medical advice Call your healthcare provider right away if any of these occur: Fever of 100.4 F (38.0 C) or higher, or as directed by your healthcare provider Symptoms are not better by the third day of treatment Back or belly (abdominal) pain that gets worse Repeated vomiting, or unable to keep medicine down Weakness or dizziness Vaginal discharge Pain, redness, or swelling in the outer vaginal area (labia) [employer]. [address] [place] [address]. All rights reserved. This information is not intended as a substitute for professional medical care. Always follow yourhealthcare professional's instructions. Middle Ear Infection (Adult) You have an infection of the middle ear, the space behind the eardrum. This is also called acute otitis media (AOM). Sometimes it is caused by the common cold. This is because congestion can block the internal passage (eustachian tube) that drains fluid from the middle ear. When the middle ear fills with fluid, bacteria can grow there and cause an infection. Oral antibiotics are used to treat this illness, not ear drops. Symptoms usually start to improve within 1 to 2 days of treatment. Home care The following are general care guidelines: Finish all of the antibiotic medicine given, even though you may feel better after the first few days. You may use ihrv-xrf-xlyvjra medicine, such as acetaminophen or ibuprofen, to control pain and fever, unless something else was prescribed. If you have chronic liver or kidney disease or have ever had a stomach ulcer or gastrointestinal bleeding, talk with your healthcare provider before using these medicines. Do not give aspirin to anyone under 18 years of age who has a fever. It may cause severe illness or . Follow-up care Follow up with your healthcare provider, or as advised, in 2 weeks if all symptoms have not gotten better, or if hearing doesn't go back to normal within 1 month. When to seek medical advice Call your healthcare provider right away if any of these occur: Ear pain gets worse or does not improve after 3 days of treatment Unusual drowsiness or confusion Neck pain, stiff neck, or headache Fluid or blood draining from the ear canal Fever of 100.4 F (38 C) or as advised Seizure [id number] [employer]. [address] [place] [address]. All rights reserved. This information is not intended as a substitute for professional medical care. Always follow yourhealthcare professional's instructions. Additional Information VACCINATE! IT SAVES LIVES! Members of the community who have not yet received the COVID-19 vaccine and would like to receive it can visit one of [facility] vaccine clinics. There are many vaccine clinic locations within the [facility]. For locations and available times, please visit [email or web address]/. It is important to note that some COVID mobile vaccine clinics are held outdoors and may be canceled in rainy or stormy conditions. To learn more about pediatric vaccinations (ages 5-11), we invite you to visit the [facility] webpage. https://www.[employer].org/pages/7913-Iuzxc-Ocloubzvtub-Uejqeakgpk-Sukob-Cdk stions.htmlTo learn more about the COVID-19 vaccine, we invite you to visit the CDC website for a list of frequently asked questions. https://www.cdc.gov/coronavirus/2019-ncov/vaccines/faq.html [facility] Patient Portal Access Instructions: Stay connected with your healthcare team and access your personal medical information anytime with the [email or web address] Patient Portal. If you would like a full copy of your medical records please contact the [facility] Medical Records Department Friday through Friday between 8a.m. and 4:30p.m. Please follow the directions below to access the portal: 1.Access the email account you provided upon registration to the [facility].2.Look for an invitation email from [facility].3.Open the email and access the invitation link: Accept Invitation to [email or web address]tv4.Fill in the required rico to create your account. Sign into [email or web address] with your username and password that you created in the above steps to stay up to date. You can then view a summary of results, a summary of your visits, and the ability to download your summaries to your computer or send the information securely to a physician. Remember that your healthcare information is confidential, so carefully consider who you will allow to register on the [employer] Patient Portal for access to your information. You can also access the [employer] Patient Portal on the iwoca. Simply click on Health Records under [employer] and then click on the [employer] logo. HOW TO SAFELY DISPOSE OF PRESCRIPTION MEDICATIONS Please use one of the following methods to safely dispose of your unused medications. 1.Use a drug disposal kit: the drug disposal pouch allows you to safely discard your old and unuseddrugs. Ask your nurse to give you one when you are discharged.2.Visit a local take-back location: Many local pharmacies and police departments have programs that collect old and unwanted prescriptiondrugs. Call your local pharmacy or go to http://Aristotl.CareDox/5H1Aa0q to find one close to you.3.Make use of household items: Use cat litter or old coffee grounds to dispose medications if other options arenot available. Mix your drugs with these household products, seal them in an airtight container andthrow it into the garbage. Call [facility]: [phone] to be sure your drugs can be disposed of in this way. Some medicines may require a different approach.4.Never flush your medications down the toilet. IF YOU HAVE BEEN PRESCRIBED AN OPIOIDS FOR PAIN If you have been prescribed an opioid (such as hydrocodone, oxycodone or morphine), it is critical to understand the possible side effects and risks of opioid pain medications. Even when taken as directed, opioids can have several side effects including: Tolerance, meaning you might need to take more of a medication for the same pain relief. Nausea, vomiting and/or constipation. Sleepiness, dizziness, dry mouth, confusion, depression or itching. Physical dependence, meaning you have withdrawal symptoms when a medication is stopped ? this can develop within a few days. KNOW YOUR RESPONSIBILITIES It is important to know exactly how much and how often to take the opioid pain medications you are prescribed. Never take opioids in higher amounts or more often than prescribed. Do not combine opioids with alcohol or other drugs that cause drowsiness, such as benzodiazepines, also known as benzos,including diazepam and alprazolam, muscle relaxants or sleep aids. Never sell or share prescriptionopioids. This is illegal. Store opioids in a secure place and out of reach of others (including children, family, friends and visitors). The last page(s) of this document has been signed and retained as a CHART COPY Signatures Patient Education Materials Bladder Infection, Female (Adult) Otitis Media, Antibiotic Treatment (Adult) Medication Leaflets My discharge plan and instructions have been reviewed and explained to me and I,AMITAJOSUE KARLIE Cecile understand my current condition and have read and understand these discharge instructions. I have received a written copy of the plan/instructions. If I have questions, I am aware that I should contact my doctor. 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 HISTORY: ORDERING SYSTEM PROVIDED HISTORY: Reason for Exam: chest pain FINDINGS: The lungs are without acute focal process. There is no effusion or pneumothorax. The cardiomediastinal silhouette is without acute process. The osseous structures are without acute process. IMPRESSION: No acute process. Interpreted by: Arabella Haas Preliminary Report By: Arabella Haas Electronically signed By Arabella Haas Dictated Date: 01/15/2025 11:52:33 PM Prelim Date: 01/15/2025 11:52:44 PM Sign Date: 01/15/2025 11:52:44 PM Ordering Provider: THERON STOKES [facility]05-10-2025 Note* Exam Date Time Procedure Performing Provider Status 01/15/25 10:57 PM EKG [ED AOH] - CV THERON STOKES MD; Auth (Verified) ECG Final Report Sinus tachycardia Borderline right axis deviation Borderline T abnormalities, inferior leads Electronic Signature: THERON STOKES MD 01/15/2025 23:27:07 [facility]02-20-2025 NoteDischarge Instructions Discharge Summary [address] [address] [id number] 10/27/2024 Patient: KARLIE GOVEA Sex: Female : 1975 Age: 49y Thank you for visiting [facility]. You have been evaluated today by Waylon Maddox M.D. for the following condition(s): Principal Diagnosis Dysuria. Probable acute cystitis. No hematuria present. INSTRUCTIONS Prescription Medications: cephalexin 500 mg capsule: Take 1 capsule by mouth four times a day for 7 days, dispense 28 capsule. Refills 0. Pharmacy: [email or web address] - [address] [place] [address]. Follow-up: Follow up with your healthcare provider in one week. 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 You have been evaluated today by Waylon Maddox M.D. for the following condition(s): Principal Diagnosis Dysuria. Probable acute cystitis. No hematuria present. INSTRUCTIONS Prescription Medications: cephalexin 500 mg capsule: Take 1 capsule by mouth four times a day for 7 days, dispense 28 capsule. Refills 0. Pharmacy: [email or web address] - [address] [place] [address]. Follow-up: Follow up with your healthcare provider in one week. ADDITIONAL INFORMATION 2 of 6 Discharge Instructions Bladder Infection, Female (Adult) Urine normally doesn't have any germs (bacteria) in it. But bacteria can get into the urinary tractfrom the skin around the rectum. Or they can travel in the blood from other parts of the body. Once they are in your urinary tract, they can cause infection in these areas: The urethra (urethritis) The bladder (cystitis) The kidneys (pyelonephritis) The most common place for an infection is in the bladder. This is called a bladder infection. This is one of the most common infections in women. Most bladder infections are easily treated. They are not serious unlessthe infection spreads to the kidney. The terms bladder infection, UTI, and cystitis are often used to describe the same thing. But they are not always the same. Cystitis is an inflammation of the bladder. The most common cause of cystitis is an infection. Symptoms The infection causes inflammation in the urethra and bladder. This causes many of the symptoms. Themost common symptoms of a bladder infection are: Pain or burning when urinating Having to urinate more often than normal Urgent need to urinate 3 of 6 Discharge Instructions Only a small amount of urine comes out Blood in urine Belly (abdominal) discomfort. This is often in the lower belly above the pubic bone. Cloudy urine Strong- or bad-smelling urine Unable to urinate (urinary retention) Unable to hold urine in (urinary incontinence) Fever Loss of appetite Confusion (in older adults) Causes Bladder infections are not contagious. You can't get one from someone else, from a toilet seat, or from sharing a bath. The most common cause of bladder infections is bacteria from the bowels. The bacteria get onto the skin around the opening of the urethra. From there, they can get into the urine. Then they travel up to the bladder, causing inflammation and infection. This often happens because of: Wiping incorrectly after urinating. Always wipe from front to back. Bowel incontinence Procedures such as having a catheter put in Older age Not emptying your bladder. This can give bacteria a chance to grow in your urine. Fluid loss (dehydration) Constipation Having sex Using a diaphragm for control Treatment Bladder infections are diagnosed by a urine test and urine culture. They are treated with antibiotics. They often clear up quickly without problems. Treatment helps prevent a more serious kidney infection. 4 of 6 Discharge Instructions Medicines Medicines can help in the treatment of a bladder infection: Take antibiotics until they are used up, even if you feel better. It's important to finish them to make sure the infection has cleared. You can use acetaminophen or ibuprofen for pain, fever, or discomfort, unless another medicine was prescribed. If you have long-term (chronic) liver or kidney disease, talk with your healthcare provider before using these medicines. Also talk with your provider if you've ever had a stomach ulcer or GI (gastrointestinal) bleeding, or a (more content not included)...[facility]12-20-2024 Hospital Discharge instructions Patient Education 08/27/2024 17:10:41 High Blood Sugar (Hyperglycemia) High Blood Sugar (Hyperglycemia) Too much sugar (glucose) in your blood is called high blood sugar (hyperglycemia). This can lead toa dangerous condition called ketoacidosis. In severe cases, it can lead to fluid loss (dehydration)and coma. Possible causes of high blood sugar Having a poor treatment plan for diabetes Being sick Being under stress Taking certain medicines, such as steroids Eating too much food, especially carbohydrates Being less active than normal Not taking enough diabetes medicine Symptoms of high blood sugar High blood sugar may not cause symptoms. If you do have symptoms, they may include: Thirst Frequent need to urinate Feeling tired or drowsy Nausea and vomiting Itchy, dry skin Blurry vision Fast breathing and breath that smells fruity Weakness Dizziness Wounds or skin infections that don t heal Unexplained weight loss if hyperglycemia lasts for more than a few days What to do Do the following: Check your blood sugar. Drink plenty of sugar-free, caffeine-free liquids such as water. Don t drink fruit juice. Check your blood sugar again every 4 hours. If you take insulin or diabetes medicines, follow your sick-day plan for taking medicine. Call your healthcare provider if you are not able to eat. Check your blood or urine for ketones as directed. Call your provider if your blood sugar and ketones don't go back to your target range. If the value is high, take your diabetes medicines as prescribed. And check your blood sugar more often. Doses of medicines such as insulin can be increased slightly if blood sugars stay high. But your provider must approve this. Preventing high blood sugar To help keep your blood sugar from getting too high: Control stress. When you're ill, follow your sick-day plan. Follow your meal plan. Eat only the amount of food on your meal plan. Stick to your exercise plan. Take your insulin or diabetes medicines as directed by your healthcare team. Also test your blood sugar as directed. If the plan is not working for you, discuss it with your healthcare provider. Other things to do Carry a medical ID card or a compact USB drive. Or wear a medical alert bracelet or necklace. It should say that you have diabetes. It should also say what to do in case you pass out or go into a coma. Make sure family, friends, and coworkers know the signs of high blood sugar. Tell them what to do if your blood sugar gets very high and you can t help yourself. Talk with your healthcare team about other things you can do to prevent high blood sugar. Special note: Drink plenty of sugar-free and caffeine-free liquids when you feel symptoms of hyperglycemia. Call your healthcare provider if you keep having episodes of high blood sugar. [id number] [employer]. [address] [place] [address]. All rights reserved. This information is not intended as a substitute for professional medical care. Always follow yourhealthcare professional's instructions. Follow Up Care 08/27/2024 16:00:33 With:CLIF FLANNERY MD Address: [address] [place] [id number]- When:2-4 days [facility] 12-20-2024 Note Discharge Instructions Thank you for allowing [facility] to assist you with your healthcare needs. The following is importantdischarge information regarding your hospital visit. Diagnosis from Today's Visit Hyperglycemia What to Do Next Instructions from Your Care Team No qualifying data available. Post Acute Orders No qualifying data available. You Need to Schedule the Following Appointments Follow Up with CLIF FLANNERY MD When:Within 2-4 days Where:[address] [place] [address] [phone]- Allergies NKA Medications Please ask your primary doctor or pharmacist before taking any other medication not listed, including over the counter drugs, herbal medications, vitamins and or supplements as they may interact withyour home medications. What How Much When Why Instructions Last Dose Unchanged acetaminophen- hydrocodone (Angel [place] 325- 5 mg oral tablet) 1 tab(s) by mouth Every 6 hours Contusion of right elbow Duration: 3 Days Unchanged ARIPiprazole (Abilify) by mouth Once a day Unchanged fluticasone nasal (Flonase 50 mcg/ inh nasal spray) 1 spray(s) in the nose Two (2) times a day Duration: 14 Days Unchanged glimepiride by mouth Once a day Unchanged metFORMIN (metFORMIN 500 mg oral tablet) 1 tab(s) by mouth Twice daily with meals Unchanged naproxen (Anaprox-DS 550 mg oral tablet) 1 tab(s) by mouth Two (2) times a day as needed for as needed for pain Unchanged sertraline (Zoloft) by mouth Once a day Please take this list to your next doctor s visit. Bring all medications you take, including over the counter medications, herbals and other supplements with you to your doctor s visit. Patients and families are reminded to discard old lists and to update any records with all medication providers or retail pharmacies. Education Materials High Blood Sugar (Hyperglycemia) Too much sugar (glucose) in your blood is called high blood sugar (hyperglycemia). This can lead toa dangerous condition called ketoacidosis. In severe cases, it can lead to fluid loss (dehydration)and coma. Possible causes of high blood sugar Having a poor treatment plan for diabetes Being sick Being under stress Taking certain medicines, such as steroids Eating too much food, especially carbohydrates Being less active than normal Not taking enough diabetes medicine Symptoms of high blood sugar High blood sugar may not cause symptoms. If you do have symptoms, they may include: Thirst Frequent need to urinate Feeling tired or drowsy Nausea and vomiting Itchy, dry skin Blurry vision Fast breathing and breath that smells fruity Weakness Dizziness Wounds or skin infections that don t heal Unexplained weight loss if hyperglycemia lasts for more than a few days What to do Do the following: Check your blood sugar. Drink plenty of sugar-free, caffeine-free liquids such as water. Don t drink fruit juice. Check your blood sugar again every 4 hours. If you take insulin or diabetes medicines, follow your sick-day plan for taking medicine. Call your healthcare provider if you are not able to eat. Check your blood or urine for ketones as directed. Call your provider if your blood sugar and ketones don't go back to your target range. If the value is high, take your diabetes medicines as prescribed. And check your blood sugar more often. Doses of medicines such as insulin can be increased slightly if blood sugars stay high. But your provider must approve this. Preventing high blood sugar To help keep your blood sugar from getting too high: Control stress. When you're ill, follow your sick-day plan. Follow your meal plan. Eat only the amount of food on your meal plan. Stick to your exercise plan. Take your insulin or diabetes medicines as directed by your healthcare team. Also test your blood sugar as directed. If the plan is not working for you, discuss it with your healthcare provider. Other things to do Carry a medical ID card or a compact USB drive. Or wear a medical alert bracelet or necklace. It should say that you have diabetes. It should also say what to do in case you pass out or go into a coma. Make sure family, friends, and coworkers know the signs of high blood sugar. Tell them what to do if your blood sugar gets very high and you can t help yourself. Talk with your healthcare team about other things you can do to prevent high blood sugar. Special note: Drink plenty of sugar-free and caffeine-free liquids when you feel symptoms of hyperglycemia. Call your healthcare provider if you keep having episodes of high blood sugar. [phone] [employer]. [address] [place] [address]. All rights reserved. This information is not intended as a substitute for professional medical care. Always follow yourhealthcare professional's instructions. Additional Information VACCINATE! IT SAVES LIVES! Members of the community who have not yet received the COVID-19 vaccine and would like to receive it can visit one of [facility] vaccine clinics. There are many vaccine clinic locations within the [facility]. For locations and available times, please visit [email or web address]/. It is important to note that some COVID mobile vaccine clinics are held outdoors and may be canceled in rainy or stormy conditions. To learn more about pediatric vaccinations (ages 5-11), we invite you to visit the [facility] webpage. https://www.[email or web address].org/pages/9643-Yxvlt-Mrfygtnabyj-Rngvhwazbi-Kunwx-Hrj stions.htmlTo learn more about the COVID-19 vaccine, we invite you to visit the CDC website for a list of frequently asked questions. https://www.cdc.gov/coronavirus/2019-ncov/vaccines/faq.html [facility] Patient Portal Access Instructions: Stay connected with your healthcare team and access your personal medical information anytime with the [facility] Send [facility] Patient Portal. If you would like a full copy of your medical records please contact the [facility] Medical Records Department Friday through Friday between 8a.m. and 4:30p.m. Please follow the directions below to access the portal: 1.Access the email account you provided upon registration to the [facility].2.Look for an invitation email from [facility].3.Open the email and access the invitation link: Accept Invitation to [facility] the [facility]4.Fill in the required rico to create your account. Sign into [email or web address] with your username and password that you created in the above steps to stay up to date. You can then view a summary of results, a summary of your visits, and the ability to download your summaries to your computer or send the information securely to a physician. Remember that your healthcare information is confidential, so carefully consider who you will allow to register on the [facility] Send the [facility] Patient Portal for access to your information. You can also access the [facility] Patient Portal on the [employer] eder. Simply click on Health Records under [employer] and then click on the Navi logo. HOW TO SAFELY DISPOSE OF PRESCRIPTION MEDICATIONS Please use one of the following methods to safely dispose of your unused medications. 1.Use a drug disposal kit: the drug disposal pouch allows you to safely discard your old and unuseddrugs. Ask your nurse to give you one when you are discharged.2.Visit a local take-back location: Many local pharmacies and police departments have programs that collect old and unwanted prescriptiondrugs. Call your local pharmacy or go to http://bit.CareDox/7W9Nk4h to find one close to you.3.Make use of household items: Use cat litter or old coffee grounds to dispose medications if other options arenot available. Mix your drugs with these household products, seal them in an airtight container andthrow it into the garbage. Call [facility]: [phone] to be sure your drugs can be disposed of in this way. Some medicines may require a different approach.4.Never flush your medications down the toilet. IF YOU HAVE BEEN PRESCRIBED AN OPIOIDS FOR PAIN If you have been prescribed an opioid (such as hydrocodone, oxycodone or morphine), it is critical to understand the possible side effects and risks of opioid pain medications. Even when taken as directed, opioids can have several side effects including: Tolerance, meaning you might need to take more of a medication for the same pain relief. Nausea, vomiting and/or constipation. Sleepiness, dizziness, dry mouth, confusion, depression or itching. Physical dependence, meaning you have withdrawal symptoms when a medication is stopped ? this can develop within a few days. KNOW YOUR RESPONSIBILITIES It is important to know exactly how much and how often to take the opioid pain medications you are prescribed. Never take opioids in higher amounts or more often than prescribed. Do not combine opioids with alcohol or other drugs that cause drowsiness, such as benzodiazepines, also known as benzos,including diazepam and alprazolam, muscle relaxants or sleep aids. Never sell or share prescriptionopioids. This is illegal. Store opioids in a secure place and out of reach of others (including children, family, friends and visitors). The last page(s) of this document has been signed and retained as a CHART COPY Signatures Patient Education Materials High Blood Sugar (Hyperglycemia) Medication Leaflets My discharge plan and instructions have been reviewed and explained to me and I,KARLIE GOVEA understand my current condition and have read and understand these discharge instructions. I have received a written copy of the plan/instructions. If I have questions, I am aware that I should contact my doctor. 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 Author Type: Climatologist Type: Progress Notes Filed: 05/29/2024 15:36 Note Text: Radiology Service Progress Note PATIENT NAME: Karlie Govea DATE OF SERVICE: May 29, 2024 TIME: 3:36 PM PATIENT IDENTITY VERIFICATION COMPLETED USING TWO (2) IDENTIFIERS: Name and Date of confirmed by patient verbally and Name and Date of confirmed by identification band. FALL SCREENING: Has the patient had 2 falls in the last year or 1 fall with injury or currently using an Ambulatory Assistive Device (Walker, Cane, Wheelchair, Crutches, etc.)? No PATIENT GENDER DATA: Female. status: : No status: NO. PATIENT RELEVANT IMPLANT DATA REVIEWED: Yes PATIENT PRESENTS WITH AN IMPLANTABLE OR ATTACHED WOOD SHINGLE ROOFER: No RADIOLOGY DEPARTMENT: CT; Exam(s) Completed: Brain PERIPHERAL IV DATA: Not applicable SIGNED BY: RT Moe (R)(CT) May 29, 2024 3:36 [id number] NoteHNO ID: [id number] Author: CARMENZA CAMACHO RT(R) Service: Radiology Author Type: Technologist Type: Progress Notes Filed: 05/29/2024 14:06 Note Text: Radiology Service Progress Note PATIENT NAME: Karlie Govea DATE OF SERVICE: May 29, 2024 TIME: 2:06 PM PATIENT IDENTITY VERIFICATION COMPLETED USING TWO (2) IDENTIFIERS: Name and Date of confirmed by patient verbally and Name and Date of confirmed by identification band. FALL SCREENING: Has the patient had 2 falls in the last year or 1 fall with injury or currently using an Ambulatory Assistive Device (Walker, Cane, Wheelchair, Crutches, etc.)? Emergency Room Patient: Screened in ED PATIENT GENDER DATA: Female. status: : No status: NO. PATIENT RELEVANT IMPLANT DATA REVIEWED: Not Applicable PATIENT PRESENTS WITH AN IMPLANTABLE OR ATTACHED WOOD SHINGLE ROOFER: No RADIOLOGY DEPARTMENT: General X-ray: Exam(s) Completed: Chest X-Ray PERIPHERAL IV DATA: Not applicable SIGNED BY: RT Pilar(R) May 29, 2024 2:06 [id number] NoteHNO ID: [id number] Author: HIGINIO CHUNG RT(R) Service: ? Author Type: Technologist Type: Progress Notes Filed: 05/27/2024 20:00 Note Text: Radiology Service Progress Note DATE OF SERVICE: May 27, 2024 TIME: 7:59 PM PATIENT IDENTITY VERIFICATION COMPLETED USING TWO (2) STANDARD IDENTIFIERS: Name and Date of confirmed by patient verbally and Name and Date of confirmed by identification band. FALL SCREENING: Has the patient had 2 falls in the last year or 1 fall with injury or currently using an Ambulatory Assistive Device (Walker, Cane, Wheelchair, Crutches, etc.)? No PATIENT GENDER DATA: Female. status: : No status: NO. PATIENT RELEVANT IMPLANT DATA REVIEWED: Yes PATIENT PRESENTS WITH AN IMPLANTABLE OR ATTACHED WOOD SHINGLE ROOFER: No ALLERGIES: Reviewed and unchanged CONTRAST ALLERGY: NO. EXAM: CT -CONTRAST INDUCED NEPHROPATHY RISK FACTORS: Not applicable CREATININE: Creatinine Date Value Ref Range Status 05/27/2024 0.83 0.58 - 0.96 mg/dL Final 01/27/2015 0.87 0.70 - 1.40 mg/dL Final 08/23/2014 0.84 0.70 - 1.40 mg/dL Final Estimated Glomerular Filtration Rate Date Value Ref Range Status 05/27/2024 86 >=60 mL/min/1.73m? Final Comment: Estimated Glomerular Filtration Rate (eGFR) is calculated using the 2020 CKD-EPI creatinine equation. This equation utilizes serum creatinine, sex, and age as parameters. The creatinine assay has traceable calibration to isotope dilution-mass spectrometry. Refer to KDIGO guidelines for clinical interpretation. In patients with unstable renal function, e.g. those with acute kidney injury, the eGFR may not accurately reflect actual GFR. eGFR- Date Value Ref Range Status 01/27/2015 >60 Final P.O.C.T. RESULTS: POC done: Yes, See Lab Tab May 27, 2024 TREATMENT: N/A and No Hydration needed. PERIPHERAL IV DATA: Inpatient - refer to LDA documentation RADIOLOGY DEPARTMENT: CT; Exam(s) Completed: PE Study SIGNATURE: RT Beto(R) PATIENT NAME: Karlie Govea DATE: May 27, 2024 TIME: 7:59 [facility] [id number] NoteHNO ID: [id number] Author: RUI CHAVEZ RT(R) Service: Radiology Author Type: Climatologist Type: Progress Notes Filed: 05/27/2024 16:34 Note Text: Radiology Service Progress Note PATIENT NAME: Karlie Govea DATE OF SERVICE: May 27, 2024 TIME: 4:33 PM PATIENT IDENTITY VERIFICATION COMPLETED USING TWO (2) IDENTIFIERS: Name and Date of confirmed by patient verbally. FALL SCREENING: Has the patient had 2 falls in the last year or 1 fall with injury or currently using an Ambulatory Assistive Device (Walker, Cane, Wheelchair, Crutches, etc.)? Emergency Room Patient: Screened in ED PATIENT GENDER DATA: Female. status: : No status: NO. PATIENT RELEVANT IMPLANT DATA REVIEWED: Not Applicable PATIENT PRESENTS WITH AN IMPLANTABLE OR ATTACHED WOOD SHINGLE ROOFER: No RADIOLOGY DEPARTMENT: General X-ray: Exam(s) Completed: Chest X-Ray PERIPHERAL IV DATA: Not applicable SIGNED BY: RT Elizabeth(R) May 27, 2024 4:33 [facility]MPortage [id number] Hospital Discharge instructions Patient Education 08/28/2023 19:22:42 Shoulder Sprain Shoulder Sprain A sprain is a stretching or tearing of the ligaments that hold a joint together. A sprain may take up to 8 weeks to fully heal, depending on how severe it is. Moderate to severe shoulder sprains are treated with a sling or shoulder immobilizer. Minor sprains can be treated without any special support. Home care The following guidelines will help you care for your injury at home: If a sling was given to you, leave it in place for the time advised by your healthcare provider. Ifyou aren t sure how long to wear it, ask for advice. If the sling becomes loose, adjust it so that your forearm is level with the ground. Your shoulder should feel well supported. Put an ice pack on the injured area for 20 minutes every 1 to 2 hours the first day. You can make your own ice pack by putting ice cubes in a plastic bag. A bag of frozen peas or something similar works well too. Wrap the bag in a thin towel. Continue with ice packs 3 to 4 times a day for the next 2 to 3 days. Then use the pack as needed to ease pain and swelling. You may use acetaminophen or ibuprofen to control pain, unless another pain medicine was prescribed. If you have chronic liver or kidney disease, talk with your healthcare provider before using thesemedicines. Also talk with your provider if you ve had a stomach ulcer or gastrointestinal bleeding. Shoulder joints become stiff if left in a sling for too long. You should start range of motion exercises about 7 to 10 days after the injury. Talk with your provider to find out what type of exercises to do and how soon to start. Follow-up care Follow up with your healthcare provider, or as advised. Any X-rays you had today don t show any broken bones, breaks, or fractures. Sometimes fractures dont show up on the first X-ray. Bruises and sprains can sometimes hurt as much as a fracture. These injuries can take time to heal completely. If your symptoms don t improve or they get worse, talk with your provider. You may need a repeat X-ray or other treatments. When to seek medical advice Call your healthcare provider right away if any of these occur: Shoulder pain or swelling in your arm that gets worse Fingers become cold, blue, numb, or tingly Large amount of bruising of the shoulder or upper arm Fever or chills [phone] [employer]. [address] [place] [address]. All rights reserved. This information is not intended as a substitute for professional medical care. Always follow yourhealthcare professional's instructions. Follow Up Care 08/28/2023 17:45:47 With:CLIF FLANNERY MD [facility]: [address] [facility] [place] [address]- When:2-4 days [facility] 12-21-2023 Note Discharge Instructions Thank you for allowing [facility] to assist you with your healthcare needs. The following is importantdischarge information regarding your hospital visit. Diagnosis from Today's Visit Shoulder pain-swelling Shoulder strain What to Do Next Instructions from Your Care Team Discharge Home Equipment - Ordered -- Sling, Arm Right, 1 month(s), 08/28/23 19:21:00 EST Post Acute Orders No qualifying data available. You Need to Schedule the Following Appointments Follow Up with CLIF FLANNERY MD When Within 2-4 days Where: [address] [facility] [place] [id number]- Allergies NKA Medications Please ask your primary doctor or pharmacist before taking any other medication not listed, including over the counter drugs, herbal medications, vitamins and or supplements as they may interact withyour home medications. What How Much When Why Instructions Last Dose New naproxen (Anaprox-DS 550 mg oral tablet) 1 tab(s) by mouth Two (2) times a day as needed for as needed for pain Printed Prescription Unchanged acetaminophen-hydrocodone (Angel Fire 325- 5 mg oral tablet) 1 tab(s) by mouth Every 6 hours Contusion of right elbow Duration: 3 Days Unchanged ARIPiprazole (Abilify) by mouth Once a day Unchanged fluticasone nasal (Flonase 50 mcg/ inh nasal spray) 1 spray(s) in the nose Two (2) times a day Duration: 14 Days Unchanged glimepiride by mouth Once a day Unchanged metFORMIN (metFORMIN 500 mg oral tablet) 1 tab(s) by mouth Twice daily with meals Unchanged sertraline (Zoloft) by mouth Once a day Please take this list to your next doctor s visit. Bring all medications you take, including over the counter medications, herbals and other supplements with you to your doctor s visit. Patients and families are reminded to discard old lists and to update any records with all medication providers or retail pharmacies. Education Materials Shoulder Sprain A sprain is a stretching or tearing of the ligaments that hold a joint together. A sprain may take up to 8 weeks to fully heal, depending on how severe it is. Moderate to severe shoulder sprains are treated with a sling or shoulder immobilizer. Minor sprains can be treated without any special support. Home care The following guidelines will help you care for your injury at home: If a sling was given to you, leave it in place for the time advised by your healthcare provider. Ifyou aren t sure how long to wear it, ask for advice. If the sling becomes loose, adjust it so that your forearm is level with the ground. Your shoulder should feel well supported. Put an ice pack on the injured area for 20 minutes every 1 to 2 hours the first day. You can make your own ice pack by putting ice cubes in a plastic bag. A bag of frozen peas or something similar works well too. Wrap the bag in a thin towel. Continue with ice packs 3 to 4 times a day for the next 2 to 3 days. Then use the pack as needed to ease pain and swelling. You may use acetaminophen or ibuprofen to control pain, unless another pain medicine was prescribed. If you have chronic liver or kidney disease, talk with your healthcare provider before using thesemedicines. Also talk with your provider if you ve had a stomach ulcer or gastrointestinal bleeding. Shoulder joints become stiff if left in a sling for too long. You should start range of motion exercises about 7 to 10 days after the injury. Talk with your provider to find out what type of exercises to do and how soon to start. Follow-up care Follow up with your healthcare provider, or as advised. Any X-rays you had today don t show any broken bones, breaks, or fractures. Sometimes fractures dont show up on the first X-ray. Bruises and sprains can sometimes hurt as much as a fracture. These injuries can take time to heal completely. If your symptoms don t improve or they get worse, talk with your provider. You may need a repeat X-ray or other treatments. When to seek medical advice Call your healthcare provider right away if any of these occur: Shoulder pain or swelling in your arm that gets worse Fingers become cold, blue, numb, or tingly Large amount of bruising of the shoulder or upper arm Fever or chills [phone] [employer]. [address] [place] [address], [place] [address]. All rights reserved. This information is not intended as a substitute for professional medical care. Always follow yourhealthcare professional's instructions. Additional Information VACCINATE! IT SAVES LIVES! Members of the community who have not yet received the COVID-19 vaccine and would like to receive it can visit one of [facility] vaccine clinics. There are many vaccine clinic locations within the [facility]. For locations and available times, please visit [email or web address]/. It is important to note that some COVID mobile vaccine clinics are held outdoors and may be canceled in rainy or stormy conditions. To learn more about pediatric vaccinations (ages 5-11), we invite you to visit the [facility] webpage. [email or web address].[email or web address]/pages/[email or web address]-[email or web address] stions.htmlTo learn more about the COVID-19 vaccine, we invite you to visit the CDC website for a list of frequently asked questions. https://www.cdc.gov/coronavirus/2019-ncov/vaccines/faq.html [facility] Patient Portal Access Instructions: Stay connected with your healthcare team and access your personal medical information anytime with the [email or web address] Patient Portal. If you would like a full copy of your medical records please contact the [facility] Medical Records Department Friday through Friday between 8a.m. and 4:30p.m. Please follow the directions below to access the portal: 1.Access the email account you provided upon registration to the [facility].2.Look for an invitation email from [facility].3.Open the email and access the invitation link: Accept Invitation to [facility] Send the [facility]4.Fill in the required rico to create your account. Sign into [email or web address] with your username and password that you created in the above steps to stay up to date. You can then view a summary of results, a summary of your visits, and the ability to download your summaries to your computer or send the information securely to a physician. Remember that your healthcare information is confidential, so carefully consider who you will allow to register on the [employer] Patient Portal for access to your information. You can also access the [employer] Patient Portal on the [employer] eder. Simply click on Health Records under [employer] and then click on the Navi logo. HOW TO SAFELY DISPOSE OF PRESCRIPTION MEDICATIONS Please use one of the following methods to safely dispose of your unused medications. 1.Use a drug disposal kit: the drug disposal pouch allows you to safely discard your old and unuseddrugs. Ask your nurse to give you one when you are discharged.2.Visit a local take-back location: Many local pharmacies and police departments have programs that collect old and unwanted prescriptiondrugs. Call your local pharmacy or go to http://bit.CareDox/5I1Hh1v to find one close to you.3.Make use of household items: Use cat litter or old coffee grounds to dispose medications if other options arenot available. Mix your drugs with these household products, seal them in an airtight container andthrow it into the garbage. Call [facility]: [phone] to be sure your drugs can be disposed of in this way. Some medicines may require a different approach.4.Never flush your medications down the toilet. IF YOU HAVE BEEN PRESCRIBED AN OPIOIDS FOR PAIN If you have been prescribed an opioid (such as hydrocodone, oxycodone or morphine), it is critical to understand the possible side effects and risks of opioid pain medications. Even when taken as directed, opioids can have several side effects including: Tolerance, meaning you might need to take more of a medication for the same pain relief. Nausea, vomiting and/or constipation. Sleepiness, dizziness, dry mouth, confusion, depression or itching. Physical dependence, meaning you have withdrawal symptoms when a medication is stopped ? this can develop within a few days. KNOW YOUR RESPONSIBILITIES It is important to know exactly how much and how often to take the opioid pain medications you are prescribed. Never take opioids in higher amounts or more often than prescribed. Do not combine opioids with alcohol or other drugs that cause drowsiness, such as benzodiazepines, also known as benzos,including diazepam and alprazolam, muscle relaxants or sleep aids. Never sell or share prescriptionopioids. This is illegal. Store opioids in a secure place and out of reach of others (including children, family, friends and visitors). The last page(s) of this document has been signed and retained as a CHART COPY Signatures Patient Education Materials Shoulder Sprain Medication Leaflets My discharge plan and instructions have been reviewed and explained to me and IXUAN ELLEN R understand my current condition and have read and understand these discharge instructions. I have received a written copy of the plan/instructions. If I have questions, I am aware that I should contact my doctor. 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 The humeral head is appropriately seated within the glenoid fossa. The acromioclavicular and coracoclavicular relationships are well maintained. Included intrathoracic structures are unremarkable. IMPRESSION: No acute fracture or dislocation. I have personally reviewed the images of this examination and agree with the resident's findings and interpretation. Interpreted by: Ryan Rosario MD Preliminary Report By: Rodriguez Moreira Electronically signed By Ryan Rosario MD Dictated Date: 08/28/2023 7:23:22 PM Prelim Date: 08/28/2023 7:27:13 PM Sign Date: 08/28/2023 7:50:55 PM Ordering Provider: [facility]07-14-2023 Hospital Discharge instructions Patient Education 03/21/2023 18:20:06 Contusion, Elbow Elbow Bruise You have a bruise (contusion) of your elbow. A bruise causes local pain, swelling, and sometimes bruising. There are no broken bones. This injury takes a few days to a few weeks to heal. You may be given a sling for comfort and arm support. You may notice color changes over the skin. It may change from reddish to bluish to greenish or yellowish before the bruising fades. The skin will then go back to its normal color. Home care Follow these guidelines when caring for yourself at home. Keep your arm elevated to reduce pain and swelling. This is most important during the first 2 days (48 hours) after the injury. Put an ice pack on the injured area. Do this for 20 minutes every 1 to 2 hours the first day. You can make an ice pack by wrapping a plastic bag of ice in a thin towel. You should continue to use theice pack 3 to 4 times a day for the next 2 days. Then use the ice pack as needed to ease pain and swelling. Don t use a heating pad. Don t stick a needle into the contusion or bruising to drain it. You may use acetaminophen or ibuprofen to control pain, unless another pain medicine was prescribed. If you have chronic liver or kidney disease, talk with your healthcare provider before using thesemedicines. Also talk with your provider if you ve had a stomach ulcer or gastrointestinal bleeding. If a sling was provided, you may take it off to shower or bathe. Don t wear it for more than 1 weekor it may cause joint stiffness. Follow-up care Follow up with your healthcare provider, or as advised, if you are not starting to get better within the next 3 days. When to seek medical advice Call your healthcare provider right away if any of these occur: Pain or swelling gets worse The back of your elbow becomes very swollen where it almost looks like a gold ball or egg-like massis growing there. This is a sign of olecrenon bursitis or septic bursitis which may need immediate treatment if infected.. Redness, red streaks down the arm, warmth, or drainage from the bruise Hand or fingers becomes cold, blue, numb, or tingly New bruises, and you don t know what caused them Contusion doesn t heal inability to move wrist, hand or fingers properly. [phone] [employer]. [address] [place] [address]. All rights reserved. This information is not intended as a substitute for professional medical care. Always follow yourhealthcare professional's instructions. Follow Up Care 03/21/2023 17:21:07 With:CLIF FLANNERY MD Address: [address] [place] [id number]- When:3-5 days [facility] 07-14-2023 Emergency department Discharge summary Discharge Instructions Thank you for allowing [facility] to assist you with your healthcare needs. The following is importantdischarge information regarding your hospital visit. Diagnosis from Today's Visit Contusion of right elbow Elbow pain-swelling Toe pain-right 5th What to Do Next Instructions from Your Care Team Discharge Home Equipment - Ordered -- Sling, Arm Right, 99 month(s), 03/21/23 18:18:00 EDT Discharge Return to Work, School, or Sports (Return to Work, School, or Sports) - Ordered -- 03/21/23, 03/24/23, May return to: work, 03/21/23 18:18:00 EDT Post Acute Orders No qualifying data available. You Need to Schedule the Following Appointments Follow Up with CLIF FLANNERY MD When Within 3-5 days Where: [address] [facility] [address]- Allergies NKA Medications Please ask your primary doctor or pharmacist before taking any other medication not listed, including over the counter drugs, herbal medications, vitamins and or supplements as they may interact withyour home medications. What How Much When Why Instructions Last Dose New acetaminophen-hydrocodone (Angel Fire 325- 5 mg oral tablet) 1 tab(s) by mouth Every 6 hours Contusion of right elbow Duration: 3 Days Printed Prescription Unchanged ARIPiprazole (Abilify) by mouth Once a day Unchanged fluticasone nasal (Flonase 50 mcg/ inh nasal spray) 1 spray(s) in the nose Two (2) times a day Duration: 14 Days Unchanged glimepiride by mouth Once a day Unchanged metFORMIN (metFORMIN 500 mg oral tablet) 1 tab(s) by mouth Twice daily with meals Unchanged sertraline (Zoloft) by mouth Once a day Please take this list to your next doctor s visit. Bring all medications you take, including over the counter medications, herbals and other supplements with you to your doctor s visit. Patients and families are reminded to discard old lists and to update any records with all medication providers or retail pharmacies. Education Materials Elbow Bruise You have a bruise (contusion) of your elbow. A bruise causes local pain, swelling, and sometimes bruising. There are no broken bones. This injury takes a few days to a few weeks to heal. You may be given a sling for comfort and arm support. You may notice color changes over the skin. It may change from reddish to bluish to greenish or yellowish before the bruising fades. The skin will then go back to its normal color. Home care Follow these guidelines when caring for yourself at home. Keep your arm elevated to reduce pain and swelling. This is most important during the first 2 days (48 hours) after the injury. Put an ice pack on the injured area. Do this for 20 minutes every 1 to 2 hours the first day. You can make an ice pack by wrapping a plastic bag of ice in a thin towel. You should continue to use theice pack 3 to 4 times a day for the next 2 days. Then use the ice pack as needed to ease pain and swelling. Don t use a heating pad. Don t stick a needle into the contusion or bruising to drain it. You may use acetaminophen or ibuprofen to control pain, unless another pain medicine was prescribed. If you have chronic liver or kidney disease, talk with your healthcare provider before using thesemedicines. Also talk with your provider if you ve had a stomach ulcer or gastrointestinal bleeding. If a sling was provided, you may take it off to shower or bathe. Don t wear it for more than 1 weekor it may cause joint stiffness. Follow-up care Follow up with your healthcare provider, or as advised, if you are not starting to get better within the next 3 days. When to seek medical advice Call your healthcare provider right away if any of these occur: Pain or swelling gets worse The back of your elbow becomes very swollen where it almost looks like a gold ball or egg-like massis growing there. This is a sign of olecrenon bursitis or septic bursitis which may need immediate treatment if infected.. Redness, red streaks down the arm, warmth, or drainage from the bruise Hand or fingers becomes cold, blue, numb, or tingly New bruises, and you don t know what caused them Contusion doesn t heal inability to move wrist, hand or fingers properly. 9767-3422 [employer]. [address] [place] [address]. All rights reserved. This information is not intended as a substitute for professional medical care. Always follow yourhealthcare professional's instructions. Additional Information VACCINATE! IT SAVES LIVES! Members of the community who have not yet received the COVID-19 vaccine and would like to receive it can visit one of [facility] vaccine clinics. There are many vaccine clinic locations within the [facility]. For locations and available times, please visit [email or web address].[email or web address]/. It is important to note that some COVID mobile vaccine clinics are held outdoors and may be canceled in rainy or stormy conditions. To learn more about pediatric vaccinations (ages 5-11), we invite you to visit the [facility] webpage. https://www.[facility].org/pages/9104-Rwjcb-Nkwwxtrozys-Jgaractnny-Vkdul-Yie stions.htmlTo learn more about the COVID-19 vaccine, we invite you to visit the CDC website for a list of frequently asked questions. https://www.cdc.gov/coronavirus/2019-ncov/vaccines/faq.html [facility] Patient Portal Access Instructions: Stay connected with your healthcare team and access your personal medical information anytime with the [email or web address] Patient Portal. If you would like a full copy of your medical records please contact the [facility] Medical Records Department Friday through Friday between 8a.m. and 4:30p.m. Please follow the directions below to access the portal: 1.Access the email account you provided upon registration to the [facility].2.Look for an invitation email from [facility].3.Open the email and access the invitation link: Accept Invitation to [email or web address].Fill in the required rico to create your account. Sign into [email or web address] with your username and password that you created in the above steps to stay up to date. You can then view a summary of results, a summary of your visits, and the ability to download your summaries to your computer or send the information securely to a physician. Remember that your healthcare information is confidential, so carefully consider who you will allow to register on the [email or web address] Patient Portal for access to your information. You can also access the [email or web address] Patient Portal on the iwoca. Simply click on Health Records under HealthData and then click on the [employer] logo. HOW TO SAFELY DISPOSE OF PRESCRIPTION MEDICATIONS Please use one of the following methods to safely dispose of your unused medications. 1.Use a drug disposal kit: the drug disposal pouch allows you to safely discard your old and unuseddrugs. Ask your nurse to give you one when you are discharged.2.Visit a local take-back location: Many local pharmacies and police departments have programs that collect old and unwanted prescriptiondrugs. Call your local pharmacy or go to http://bit.CareDox/1Y9Nv0x to find one close to you.3.Make use of household items: Use cat litter or old coffee grounds to dispose medications if other options arenot available. Mix your drugs with these household products, seal them in an airtight container andthrow it into the garbage. Call [facility]: [phone] to be sure your drugs can be disposed of in this way. Some medicines may require a different approach.4.Never flush your medications down the toilet. IF YOU HAVE BEEN PRESCRIBED AN OPIOIDS FOR PAIN If you have been prescribed an opioid (such as hydrocodone, oxycodone or morphine), it is critical to understand the possible side effects and risks of opioid pain medications. Even when taken as directed, opioids can have several side effects including: Tolerance, meaning you might need to take more of a medication for the same pain relief. Nausea, vomiting and/or constipation. Sleepiness, dizziness, dry mouth, confusion, depression or itching. Physical dependence, meaning you have withdrawal symptoms when a medication is stopped ? this can develop within a few days. KNOW YOUR RESPONSIBILITIES It is important to know exactly how much and how often to take the opioid pain medications you are prescribed. Never take opioids in higher amounts or more often than prescribed. Do not combine opioids with alcohol or other drugs that cause drowsiness, such as benzodiazepines, also known as benzos,including diazepam and alprazolam, muscle relaxants or sleep aids. Never sell or share prescriptionopioids. This is illegal. Store opioids in a secure place and out of reach of others (including children, family, friends and visitors). The last page(s) of this document has been signed and retained as a CHART COPY Signatures Patient Education Materials Contusion, Elbow Medication Leaflets My discharge plan and instructions have been reviewed and explained to me and I,KARLIE GOVEA understand my current condition and have read and understand these discharge instructions. I have received a written copy of the plan/instructions. If I have questions, I am aware that I should contact my doctor. 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 There is no fracture or dislocation. No periosteal reaction. No significant degenerative changes are present. There is no joint effusion. The soft tissues appear normal. IMPRESSION: No acute osseous injury. Interpreted by: Tamera Vu MD Preliminary Report By: Tamera Vu MD Electronically signed By Tamera Vu MD Dictated Date: 03/21/2023 5:58:20 PM Prelim Date: 03/21/2023 6:06:06 PM Sign Date: 03/21/2023 6:06:06 PM Ordering Provider: [address]14-2023 Note ORIGINAL EXAMINATION: THREE XRAY VIEWS OF THE RIGHT ELBOW 03/21/2023 5:55 pm COMPARISON: None. HISTORY: ORDERING SYSTEM PROVIDED HISTORY: Reason for Exam: pain FINDINGS: No fracture or dislocation. No significant joint fluid. No radiopaque foreign body. Posterior soft tissue swelling. IMPRESSION: No fracture or dislocation. Interpreted by: Ramy Cardoza Preliminary Report By: Ramy Cardoza Electronically signed By Ramy Cardoza Dictated Date: 03/21/2023 6:04:16 PM Prelim Date: 03/21/2023 6:05:27 PM Sign Date: 03/21/2023 6:05:27 PM Ordering Provider: [address]14-2023 Note ORIGINAL EXAMINATION: THREE XRAY VIEWS OF THE RIGHT ELBOW 03/21/2023 5:55 pm COMPARISON: None. HISTORY: ORDERING SYSTEM PROVIDED HISTORY: Reason for Exam: pain FINDINGS: No fracture or dislocation. No significant joint fluid. No radiopaque foreign body. Posterior soft tissue swelling. IMPRESSION: No fracture or dislocation. Interpreted by: Ramy Cardoza Preliminary Report By: Ramy Cardoza Electronically signed By Ramy Cardoza Dictated Date: 03/21/2023 6:04:16 PM Prelim Date: 03/21/2023 6:05:27 PM Sign Date: 03/21/2023 6:05:27 PM Ordering Provider: [facility]07-14-2023 Note ORIGINAL EXAMINATION: THREE XRAY VIEWS OF THE RIGHT TOE(S)03/21/2023 3:54 pm TOE(S) RIGHT COMPARISON: None available HISTORY: ORDERING SYSTEM PROVIDED HISTORY: Reason for Exam: pain FINDINGS: Mineralization and bony alignment are normal. There is no fracture or dislocation. No periosteal reaction. No significant degenerative changes are present. There is no joint effusion. The soft tissues appear normal. IMPRESSION: No acute osseous injury. Interpreted by: Tamrea Vu MD Preliminary Report By: Tamera Vu MD Electronically signed By Tamera Vu MD Dictated Date: 03/21/2023 5:58:20 PM Prelim Date: 03/21/2023 6:06:06 PM Sign Date: 03/21/2023 6:06:06 PM [facility] No data available for this section [facility] Evaluation + Plan note Future Appointments Appointment Date:03/08/2025 03:00:00 PM Scheduled Provider:LIBBY SUAZO DO Location:[facility] Appointment Type:PC OV Diagnostic Tests Pending * Lipoprotein (a) 03/04/25 * Vitamin B12 Level 03/04/25 * Apolipoprotein B 03/04/25 Future Scheduled Tests Laboratory* Albumin/Creatinine Ratio, Random Urine 02/11/25 [facility] Evaluation + Plan note Future Appointments Appointment Date:04/12/2025 03:00:00 PM Scheduled Provider:LIBBY SUAZO DO Location:[facility] Appointment Type: OV Future Scheduled Tests Laboratory* Vitamin B12 Level 03/08/25 * A1C Hemoglobin 03/08/25 * Albumin/Creatinine Ratio, Random Urine 02/11/25 * Complete Metabolic Panel 03/08/25 [facility] Evaluation + Plan note Future Appointments Appointment Date:04/29/2025 02:45:00 PM Scheduled Provider:LIBBY SUAZO DO Location:[facility] [place] Appointment Type:PC OV Future Scheduled Tests Laboratory* Vitamin B12 Level 03/08/25 * A1C Hemoglobin 03/08/25 * Albumin/Creatinine Ratio, Random Urine 02/11/25 * Complete Metabolic Panel 03/08/25 Radiology* MRI Foot w/o Contrast Right 04/11/25 [facility] Evaluation + Plan note Future Appointments Appointment Date:05/06/2025 02:45:00 PM Scheduled Provider:LIBBY SUAZO DO Location:[facility] Appointment Type: OV Future Scheduled Tests Laboratory* Vitamin B12 Level 03/08/25 * A1C Hemoglobin 03/08/25 * Albumin/Creatinine Ratio, Random Urine 02/11/25 * Complete Metabolic Panel 03/08/25 Radiology* MRI Foot w/o Contrast Right 04/11/25 [facility] Evaluation + Plan note Future Appointments Appointment Date:08/12/2025 08:30:00 AM Scheduled Provider:MANUEL NORMAN MD Location:[facility] [place] 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 Scheduled Tests Laboratory* Vitamin B12 Level 03/08/25 * A1C Hemoglobin 03/08/25 * Albumin/Creatinine Ratio, Random Urine 02/11/25 * Complete Metabolic Panel 03/08/25 Radiology* MRI Foot w/o Contrast Right 04/11/25 [facility] Hospital Discharge instructions No data available for this section [facility] Progress note No data available for this section [facility] Summary Purpose Family History No Family History Records FoundNo Family History Records FoundNo Family History Records FoundNo Family History Records Found No data available for this section No Family History Records FoundNo Family History Records FoundNo Family History Records Found No data available for this section No data available for this section No data available for this section No data available for this section No data available for this section No data available for this section No Family History Records FoundNo Family History Records Found No data available for this section No Family History Records Found Advance Directives No Advanced Directives Records FoundNo Advanced Directives Records FoundNo Advanced Directives Records FoundNo Advanced Directives Records FoundNo Advanced Directives Records FoundNo Advanced Directives Records FoundNo Advanced Directives Records FoundNo Advanced Directives Records FoundNo Advanced Directives Records FoundNo Advanced Directives Records Found Additional Source Comments INFORMATION SOURCE (unrecogn ized section and content) DATE CREATED AUTHOR 02/25/2018 [facility] DATE CREATED AUTHOR AUTHOR'S ORGANIZ ATION 09/23/2019 [facility] DATE CREATED AUTHOR AUTHOR'S ORGANIZ ATION 03/15/2021 [facility] DATE CREATED AUTHOR AUTHOR'S ORGANIZ ATION 10/18/2021 [facility] DATE CREATED AUTHOR AUTHOR'S ORGANIZ ATION 09/06/2023 [facility] ([place]) DATE CREATED AUTHOR AUTHOR'S ORGANIZ ATION 02/08/2024 [facility] DATE CREATED AUTHOR AUTHOR'S ORGANIZ ATION 06/02/2024 [facility] DATE CREATED AUTHOR AUTHOR'S ORGANIZ ATION 05/05/2025 [facility] DATE CREATED AUTHOR AUTHOR'S ORGANIZ ATION 05/30/2025 [facility] DATE CREATED AUTHOR AUTHOR'S ORGANIZ ATION 07/21/2025 [facility] Patient Care team informatio n (unrecognized section and content) Care Team Personnel Name: CLIF FLANNERY MD Member Role: Primary Care Physician Address: Address: [address] [place] [id number]- Name: CAR BONILLA MD Position: ED Physician Member Role: ED Physician Address: Address: [address] [place] [address]- [place] Name: Yelena Horan RN Position: ED RN Member Role: ED RN Care Team Related Persons Name: NONE, Care Team Personnel Name: CLIF FLANNERY MD Member Role: Primary Care Physician Address: Address: [address] [place] [id number]- Name: ABI LOPEZ MD Position: ED Physician Member Role: Attending Physician Address: Address: [address] [place] [id number] Name: ROSA Ritter Position: RN Member Role: ED RN Name: Anne Liriano RN Position: AO RN Member Role: ED RN Care Team Related Persons Name: NONE, Care Team Personnel Name: CLIF FLANNERY MD Member Role: Primary Care Physician Address: [address] Telecom: Care Team Related Persons Name: NONE, Care Team Personnel Name: CLIF FLANNERY MD Member Role: Primary Care Physician Address: [address] [place] Telecom: Care Team Related Persons Name: TAMY GOVEA Care Team Personnel Name: LIBBY SUAZO DO Position: P4 Physician - Primary Care Member Role: Primary Care Physician Address: [address] [place] [address] Telecom: Care Team Related Persons Name: TAMY GOVEA Care Team Personnel Name: LIBBY SUAZO DO Position: P4 Physician - Primary Care Member Role: Primary Care Physician Address: [address] [place] [address] Telecom: Care Team Related Persons Name: TAMY GOVEA Care Team Personnel Name: LIBBY SUAZO DO Position: P4 Physician - Primary Care Member Role: Primary Care Physician Address: [address] Telecom: Care Team Related Persons Name: TAMY GOVEA Care Team Personnel Name: LIBBY SUAZO DO Position: P4 Physician - Primary Care Member Role: Primary Care Physician Address: [address] Telecom: Care Team Related Persons Name: TAMY GOVEA Care Team Personnel Name: LIBBY SUAZO DO Position: P4 Physician - Primary Care Member Role: Primary Care Physician Address: [address] [place] [address] Telecom: Care Team Related Persons Name: TRENT GOVEARINA FOR RECORDS PERTAINING TO PATIENTS WHO ARE OR HAVE BEEN ENROLLED IN A CHEMICAL DEPENDENCY/SUBSTANCEABUSE PROGRAM, SOME INFORMATION MAY BE OMITTED. This clinical summary was aggregated from multiple sources. Caution should be exercised in using it in the provision of clinical care. This summary normalizes information from multiple sources, and as a consequence, information in this document may materially change the coding, format and clinical context of patient data. In addition, data may be omitted in some cases. CLINICAL DECISIONS SHOULD BE BASED ON THE PRIMARY CLINICAL RECORDS. [facility], [facility]. provides no warranty or guarantee of the accuracy or completeness of information in this document.
[2025-08-18] MEDS: 0.9% Normal Saline (1000mL) 1,000 ML 150 ML IV (22:34)
--- NOTE | 2025-08-18 22:35 | RAD_ITS ---
PROCEDURE: CHEST 1 VIEW (PORTABLE) 08/18/2025 REASON FOR EXAM: CHEST PAIN TECHNIQUE: Frontal view of the chest. COMPARISON: 04/09/2019 FINDINGS: Lungs/Pleura: Clear. Heart/Mediastinum: Within normal limits. Bones/Soft tissues: No significant abnormality. RAD/Chest 1 View (Portable) IMPRESSION: No acute cardiopulmonary disease. Reading Location: [id number]
[2025-08-18 22:36] LABS: Hematocrit 38.6 % (37-47); Hemoglobin 13.4 g/dL (12.0-15.0); Immature Granulocytes Count 0.030 X10^3/uL (0.0-0.0); Mean Corp Hgb Conc 34.7 g/dL (32-36); Mean Corpuscular Volume 88.1 fL (81-99); Mean Platelet Vol. 10.9 fl (6.2-12.0); NRBC Flagged by Analyzer 0 % (0-5); Platelet Count 226 K/mm3 (150-450); RBC Distribution Width CV 11.8 % (11.6-14.6); RBC Distribution Width SD 38.3 fl (35.1-43.9); Red Blood Count 4.38 M/mm3 (4.2-5.4); White Blood Count 11.3 K/mm3 (4.4-11.0)
[2025-08-18 23:10] LABS: D-Dimer Quantitative (DVT/PE) 0.61 FEU/ug/m (0.27-0.49)
[2025-08-18 23:11] LABS: Anion Gap 15 (5-15); BUN 10 mg/dL (4-19); BUN/Creat Ratio 12.4 RATIO (10-20); Calcium,Total 9.5 mg/dL (7.6-11.0); Carbon Dioxide 21.3 mmol/L (21.0-32.0); Chloride 96 mmol/L (98-108); Estimated Creatinine Clearance 105.68 ml/min (50-250); Glucose 318 mg/dL (70-99); Potassium 4.1 mmol/L (3.3-5.1); Troponin T High Sensitivity 6 ng/L (<=14)
[2025-08-18] MEDS: Nitroglycerin Oint 1 INCH PACKET TD (23:17)
--- NOTE | 2025-08-18 23:21 | CT_ITS ---
PROCEDURE: CTA CHEST W/WO CONTRAST 08/19/2025 REASON FOR EXAM: CHEST PAIN, ELEVATED D-DIMER TECHNIQUE: Procedure Code: [id number] Modality: CT Procedure: CTA CHEST W/WO CONTRAST Multiplanar Sagittal and Coronal images were obtained. CONTRAST: isovue 370 VOLUME: 100 mL One or more dose reduction techniques were used (e.g., Automated exposure control, adjustment of the mA and/or kV according to patient size, use of iterative reconstruction technique). RADIATION DOSE SUMMARY: CTDI Vol 8.61 mGy DLP :291.94 mGycm FINDINGS: No evidence of any filling defect in the main pulmonary trunk, bilateral main pulmonary arteries, segmental arteries and subsegmental arteries to suggest acute or chronic pulmonary embolism. Patent thoracic aorta showing mild intimal irregularities and calcified atheromatous plaques. No intraluminal hypodense thrombi, dissecting intimal flaps or significant aneurysmal dilatation. No obvious cardiac abnormalities detected. Bilateral pulmonary atelectatic changes. Right lower lung lobe 5 mm pulmonary nodule. Stable. No obvious pulmonary masses or consolidations. No pleural or pericardial sac collections. No pathologically enlarged lymph nodes are noted. Scanned osseous structures show no osseous destruction. Thoracic spondylosis. CT/CTA Chest W/WO Contrast IMPRESSION: No evidence of pulmonary arterial thromboembolism. No obvious pulmonary masses or consolidations. Reading Location: [place] [address]
[2025-08-19] VITALS (8 sets, daily range): BP systolic 117–127; BP diastolic 71–82; PULSE 80–87; RESP 14–19; TEMP 36.4–36.6; O2SAT 93–100; BMI 33.0
--- NOTE | 2025-08-19 00:05 | ED.RN ---
Per Dr. Goldberg, pull nitro ointment off of pt d/t headache.
--- NOTE | 2025-08-19 00:12 | HP.PCM.HOS_ITS ---
HPI - General General Date of Admission: 08/19/25 Date of Service: 08/19/25 Chief Complaint: Chest pain. 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 Patient notes that she had felt slightly nauseous all day but nothing else and no recent ill contacts. She notes with the episode she did have shortness of breath and increased nausea but no emesis nor any diaphoresis. Currently she is chest pain-free following nitroglycerin administration but notes a severe headache related. She notes her chest discomfort when she was having it was 10 out of 10 in severity and is 0 now. Workup in the ED included T97.8, heart 95, BP 166/100, respiratory rate 16, 100% on room air with most recent repeat vitals heart rate 83, BP 119/75, respiratory rate 16, 97% on room air, CBC with WBC 11.3, hemoglobin 13.4, platelet 226 without marked shift, D-dimer 0.61, BMP with sodium 132, chloride 96, BUN/creatinine 10/0.80, GFR 90, glucose 318, troponin 6, chest x-ray with no acute cardiopulmonary findings, EKG SR with no acute evidence of ischemia. In the ED patient administered maintenance IV fluids, full-strength aspirin therapy, transdermal nitro glycerin x 1 after sublingual nitroglycerin initiated. Chest CTA with and without contrast ordered per ED physician and pending upon requested evaluation of patient. [facility] Medical History History of breast cancer CKD (chronic kidney disease), stage II Diabetes mellitus, type 2 Obesity Tobacco use Mood disorder Bipolar disorder Anxiety and depression Home Medications ?Medication ?Instructions ?Recorded ?Last Taken ?Type aripiprazole 10 mg tablet 15 mg PO DAILY 04/09/19 Unkn own History insulin aspart U-100 100 unit/mL 0 unit SQ TID 9 Unknown History (3 mL) subcutaneous pen insulin detemir U-100 100 unit/mL 25 units SQ QHS 10/27 Unknown History (3 mL) subcutaneous pen lorazepam 2 mg tablet 2 mg PO PRN PRN Anxiety 10/27 Unknown History metformin 1,000 mg tablet 1,000 mg PO DAILY 04/09/19 U nknown History sertraline 100 mg tablet 100 mg PO DAILY 04/09/19 Unk nown History cyclobenzaprine 10 mg tablet 10 mg PO TID PRN Muscle S pasm #20 05/21/19 Unknown Rx tabs glipizide 10 mg tablet 10 mg PO DAILY 08/18/25 Unkn own History Allergy/AdvReac Type Severity Reaction Status Date / Time No Known Allergies Allergy Verified 08/18/25 21:56 Family History (Updated 08/19/25 @ 00:[address] Radha Goldberg MD) Mother Hypertension Father Hypertension CAD (coronary artery disease) Heart disease Myocardial infarction Surgical History S/P bilateral mastectomy S/P cholecystectomy S/P Social History (Updated 08/19/25 @ 00:[address] Radha Goldberg MD) household members: spouse Smoking Status: Current every day smoker tobacco type: cigarettes Smoking packs per day: 1 Smoking cigarettes per day: 20.0 quit status: considering quitting alcohol intake: never substance use type: does not use ROS ROS Narrative Admission Review of Systems: CONSTITUTIONAL: No weight loss, fever, chills, + weakness or fatigue. HEENT: Eyes: No visual loss, blurred vision, double vision or yellow sclerae. Ears, Nose, Throat: No hearing loss, sneezing, congestion, runny nose or sore throat. SKIN: No rash or itching, lesions, wounds. CARDIOVASCULAR: + Chest pain. No palpitations, edema, orthopnea, syncopal events. RESPIRATORY: + Dyspnea. No cough or sputum, wheezing, hemoptysis. GASTROINTESTINAL: + Decreased appetite, nausea. No vomiting or diarrhea, abdominal pain, melena, BRBPR. GENITOURINARY: No dysuria, frequency, urgency or retention. NEUROLOGICAL: No headache, dizziness, syncope, paralysis, ataxia, numbness or tingling in the extremities, focal weakness, change in bowel or bladder control, seizure. MUSCULOSKELETAL: + muscle, back pain, joint pain or stiffness. HEMATOLOGIC: No anemia, bleeding or bruising. LYMPHATICS: No enlarged nodes. No history of splenectomy. PSYCHIATRIC: + History of anxiety and depression/mood disorder. ENDOCRINOLOGIC: No reports of sweating, cold or heat intolerance. No polyuria or polydipsia. ALLERGIES: No history of asthma, hives, eczema or rhinitis. Vital Signs Vital Signs Vital Signs: 08/18/25 21:55 08/18/25 22:16 08/18/25 22:28 Temperature 97.8 F Temperature Source Temporal Pulse Rate 95 Respiratory Rate 16 Respiratory Effort Normal Short of Breath Blood Pressure 166/100 H Blood Pressure Mean 122 Pulse Ox 100 94 Oxygen Delivery Method Room Air Room Air 08/18/25 22:30 08/18/25 22:32 08/18/25 22:32 Temperature Temperature Source Pulse Rate 86 85 87 Respiratory Rate 21 H 30 H Respiratory Effort Blood Pressure 136/89 H 136/89 H Blood Pressure Mean 102 Pulse Ox 99 99 Oxygen Delivery Method 08/18/25 22:45 08/18/25 23:00 08/18/25 23:17 Temperature Temperature Source Pulse Rate 84 84 82 Respiratory Rate 22 H 21 H Respiratory Effort Blood Pressure 141/79 H 147/84 H 147/84 H Blood Pressure Mean 96 101 Pulse Ox 96 97 Oxygen Delivery Method 08/18/25 23:18 08/18/25 23:30 Temperature Temperature Source Pulse Rate 83 Respiratory Rate 16 Respiratory Effort Blood Pressure 119/75 Blood Pressure Mean 88 Pulse Ox 97 97 Oxygen Delivery Method Weight Weight: 224 lb 9 oz Body Mass Index (BMI) 33.1 Physical Exam Narrative Physical Examination: General: Awake, alert, oriented x 3 and cooperative, seated upright in the ED bed, notes she is currently chest pain-free however following nitroglycerin ministration she now has a headache. Skin: Normal color, normal turgor, no icterus, no cyanosis. HEENT: AT/NC, EOMI, PERRLA, mildly dry MM, no carotid bruits, difficult to discern JVD given thickened neck. Lungs: Mildly diminished, greater bases, proper effort, occasional end expiratory wheeze, no rales or rhonchi. Heart: Regular rate and rhythm; no gallop, rub audible. Abdomen: Soft, obese, NTTP, distant normal BS, difficult to appreciate distention and HSM given habitus. Extremities: No cyanosis, no clubbing, no significant distal edema noted. Neurological: Patient awake, alert, oriented as noted, cognitive function intact; pupils equally reactive to light and accommodation, cranial nerves grossly normal, moving all 4 extremities, no focal deficits, strength mildly globally decreased secondary to acute presentation. Psychiatric: Affect appears mildly fatigued otherwise normal, no acute evidence of depressive or anxiety feelings but does have underlying history. Results Lab / Micro Data 08/18/25 22:14 08/18/25 22:14 Labs: Laboratory Results - last 24 hr 08/18/25 22:14: WBC 11.3 H, RBC 4.38, Hgb 13.4, Hct 38.6, MCV 88.1, MCH 30.6, MCHC 34.7, RDW Std Deviation 38.3, RDW Coeff of Martin 11.8, Plt Count 226, MPV 10.9, Immature Gran % (Auto) 0.300, Neut % (Auto) 53.0, Lymph % (Auto) 35.2, Lander % (Auto) 6.2, Eos % (Auto) 4.6, Baso % (Auto) 0.7, Absolute Neuts (auto) 6.0, Absolute Lymphs (auto) 3.98, Nucleated RBC % 0, D-Dimer Quant (PE/DVT) 0.61 H*, Sodium 132 L, Potassium 4.1, Chloride 96 L, Carbon Dioxide 21.3, Anion Gap 15, BUN 10, Creatinine 0.80, Estim Creat Clear Calc 105.68, Est GFR (MDRD) Non- Af 90, BUN/Creatinine Ratio 12.4, Glucose 318 H, Calcium 9.5, Troponin T High Sens 6 Imaging Radiology Impression Chest X-Ray 08/18/25 22:35 IMPRESSION: No acute cardiopulmonary disease. 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 #1. Chest Pain: EKG SR with no acute evidence of ischemia, CXR w/ no acute cardiopulmonary finding, initial trop 6. As long as CTPA without evidence of PE would pursue admission (if PE then could potentially start NOAC in the ED given not hypoxic and d/c from the ED to home), will admit to PCU, place on a monitored bed to assure no acute myocardial infarction with serial cardiac enzymes and EKGs. If repeat serial cardiac enzymes and EKGs remain unremarkable we will pursue a.m. cardiac stress testing. Magnesium level requested. FLP in AM. ASA, morphine. Will defer any further NG given severe BEE related with use in the ED. #2. Elevated BP without hypertensive diagnosis: BP in the ED initially elevated above goal, no reported previous hypertensive history, will monitor and add regimen if appropriate, as needed IV hydralazine in the interim. #3. Hyponatremia, hypochloremia, mild, possibly mild dehydration component, hypovolemia: Will judiciously hydrate when transition to n.p.o. status for planned evaluation as noted above #1, will repeat CMP in AM. #4. Chronic Kidney Disease Stage II per GFR trend: Admission BUN/Cr 10/0.80, GFR currently 90 however usually consistent with stage II, baseline renal function 0.7-0.9, repeat BMP in AM. #5. Diabetes mellitus type II: Will hold oral regimen, will continue home insulin regimen, ADA diet until n.p.o. status for evaluation as noted above, accu checks w/ ISS. #6. Anxiety and depression/mood disorder: Will continue patient home sertraline regimen as well as aripiprazole and Ativan as needed regimen. #7. Tobacco Abuse: Encouraged cessation, inpatient consultation per RT, NR if desired. #8. Obesity: Weight loss and lifestyle changes encouraged. #9. History of breast cancer: Patient with history of breast cancer unclear specific type or location but status post bilateral mastectomy with previous chemotherapy approximately 15 years prior, continued in remission, encourage follow-up outpatient as previously arranged. #10. DVT prophylaxis: Lovenox. Charges/Coding Visit Charges Inpatient E&M: 89171 Init Hosp L2
--- OUTSIDE RECORDS SUMMARY | 2025-08-19 00:27 | XMS RPT_ITS | CCD ---
Author Organization [facility] Care Team Providers Care Budget Technician Name Role Phone GUERO SHABAZZ Unavailable Unavailable [facility], GENERIC Unavailable Unavailable TAMERA ARCE Unavailable Unavailabl [facility] MEDIC, GENERIC Unavailable Unavailable SUMIT LERNER Unavailable Unavailable PRUDENCIO THOMAS, DR CLIF Sahu Primary Care Physician JOHN THOMAS, DR ABI Huber Attending Unavailsharon FLANNERY MD, DR CLIF Sahu Primary Care UnavailCAR Ramirez Attending Unavailable PRUDENCIO THOMAS, DR CLIF Sahu Primary Care UnavailTRANG Trejo (PA-C) Referring Unava ilable LIBBY SUAZO DO Primary Care Physician JAN OLEARY Attending Unavailable MISC, DOCTOR Primary Care Unavailable UNGERERCHEYENNE WOOL TAMPER Consulting Unavailable CHEYENNE BALES WOOL TAMPER Referring Unavailable WAYLON MADDOX MD Admitting Unavailable WAYLON MADDOX MD Primary Care Unavailable WAYLON MADDOX MD Attending Unavailable PROVIDER, UNKNOWN Consulting Unavailable JERICHO HERNANDEZ Attending Unavailable CHEYENNE BALES WOOL TAMPER Consulting Unavailable JERICHO HERNANDEZ Admitting Unavailable JERICHO HERNANDEZ Primary Care Unavailable PROVIDER, UNKNOWN Consulting Unavailable UNGERER, CHEYENNE WOOL TAMPER Consulting Unavailable UNGERER CHEYENNE WOOL TAMPER Attending Unavailable UNGERER CHEYENNE WOOL TAMPER Admitting Unavailable UNGERER CHEYENNE WOOL TAMPER Primary Care Unavailable PROVIDER, UNKNOWN Consulting Unavailable [...] to adverse reactions to drug (disorder) 4 [facility] (2 sources) Pollen; Translations: [POLLEN] Propensity to adverse reactions (disorder) 4 [facility] (1 source) misc non-codified allergy 1 Allergy to substance Eruption of skin (disorder) [facility] Comment on above: vinyl gloves NEGATED: Highlighted row has been ruled out! (1 source) Drug allergy [facility] Medications Current Medications Medication Drug Class(es) Dates [...] BEDTIME, # 100 tab(s), 0 Refill(s), Pharmacy: [facility] 174.5, cm, 02/11/25 13:42:00 EDT, Height, [...] 90 tab(s), 2 Refill(s), Pharmacy: [facility] #[facility], Foot pain, right Navicular fracture, [...] constipation, # 30 cap(s), 1 Refill(s), Pharmacy: [facility], 173, cm, 04/29/25 14:50:00 EDT, [...] qAM, # 30 tab(s), 1 Refill(s), Pharmacy: [facility] 174.5, cm, 03/08/25 15:02:00 EDT, Height, kg, 03/08/25 15:02:00 EDT, Dosing Weight Start Date: 03/08/25 Status: Ordered Medication Dispense Status: Completed Quantity: 30.0 Unit: tab(s) Total Allowed Fills: 2 Fills Dispensed: 0 Start: 02-22-2025 Jardiance 10 m g oral tablet Dose : 10 mg = 1 tab(s), Oral, qAM, # 30 tab(s), 0 Refill(s), Pharmacy: [facility] 174.5, cm, 02/11/25 13:42:00 EDT, Height, kg, [...] BID, # 16 gram(s), 2 Refill(s), Pharmacy: [facility], Nasal congestion, 173, cm, 04/29/25 [...] BID, # 16 gram(s), 0 Refill(s), Pharmacy: [facility] Nasal congestion, 174.5, cm, 02/11/25 13:42:00 [...] supply, # 2 EA, 3 Refill(s), Pharmacy: [facility]/pharmacy #[id number], Hypoglycemia Diabetes mellitus with insulin therapy, 173, [...] qDay, # 10 mL, 1 Refill(s), [id number] 173, cm, 05/23/25 14:32:00 EDT, Height, [...] qHS, # 30 tab(s), 2 Refill(s), Pharmacy: [facility], Nasal congestion, 173, cm, 04/29/25 14:50:00 EDT, Height, kg, 04/29/25 14:50:00 EDT, Dosing Weight Start Date: 05/12/25 Status: Ordered Medication Dispense Status: Completed Quantity: 30.0 Unit: tab(s) Total Allowed Fills: 3 Fills Dispensed: 0 Indications: Nasal congestion; Start: 04-12-2025 levocetirizine 5 mg oral tablet Dose : 5 mg = 1 tab(s), Oral, qHS, # 30 tab(s), 0 Refill(s), Pharmacy: [facility] #30, Nasal congestion, 173, cm, 04/12/25 15:01:00 EDT, Height, kg, 04/12/25 15:01:00 EDT, Dosing Weight Start Date: 04/12/25 Status: Ordered Medication Dispense Status: Completed Quantity: 30.0 Unit: tab(s) Total Allowed Fills: 1 Fills Dispensed: 0 Indications: Nasal congestion; Start: 02-11-2025 levocetirizine 5 mg oral tablet Dose : 5 mg = 1 tab(s), Oral, qHS, # 30 tab(s), 0 Refill(s), Pharmacy: [facility] Nasal congestion, 174.5, cm, 02/11/25 13:42:00 [...] qDay, # 90 cap(s), 1 Refill(s), Pharmacy: [facility]/pharmacy #[id number], 173, cm, 05/23/25 14:32:00 EDT, Height, kg, 05/23/25 14:32:00 EDT, Dosing Weight Start Date: 05/23/25 Status: Ordered Medication Dispense Status: Completed Quantity: 90.0 Unit: cap(s) Total Allowed Fills: 2 Fills Dispensed: 0 Start: 04-12-2025 nortriptyline 25 mg oral capsule Dose : 50 mg = 2 cap(s), Oral, qDay, # 60 cap(s), 1 Refill(s), Pharmacy: [facility] #30, 173, cm, 04/12/25 15:01:00 EDT, [...] dosing, # 30 cap(s), 0 Refill(s), Pharmacy: [facility] Chronic pain Bipolar 2 disorder, 174.5, [...] qDay, # 90 tab(s), 1 Refill(s), Pharmacy: [facility], 173, cm, 04/12/25 15:01:00 EDT, [...] hours, # 16 tab(s), 0 Refill(s), Pharmacy: [facility]/pharmacy #[id number], Migraines, 173, cm, 05/23/25 14:32:00 [...] qDay, # 100 tab(s), 1 Refill(s), Pharmacy: [facility] 174.5, cm, 02/11/25 13:42:00 EDT, Height, [...] 1 tablet by mouth every six hours [place] 325- 5 mg oral tablet Dose = [...] TID, # 90 tab(s), 2 Refill(s), Pharmacy: [facility], [facility] Chronic pain Osteoarthritis, 174.5, cm, 02/11/25 [...] DAILY, # 100 tab(s), 0 Refill(s), Pharmacy: [facility] 174.5, cm, 02/11/25 13:42:00 EDT, Height, [...] BID, # 200 tab(s), 0 Refill(s), Pharmacy: [facility] 174.5, cm, 03/08/25 15:02:00 EDT, Height, [...] regimen behavior finding 02-11-2025 Unclassified (2 sources) [facility] current use of non-steroidal anti-inflammatory drug 04-29-2025 Past or Other Problems Problem Classification Problem Date Documented Da te Episodic/Chronic Other aftercare (1 source) watermaster (current) use of insulin; Translations: [CORRECTION (CURRENT) USE OF INSULIN] Onset: 08-20-2019 Episodic Other aftercare (1 source) Other penitentiary (current) drug therapy; Translations: [OTHER CORRECTION (CURRENT) DRUG THERAPY] Onset: 08-20-2019 Episodic Otitis [...] Basophil, Absolute 0.1 10 3/mcL Normal 0.0-0.3 [facility] Comment on above: Performed By: #### C TRIPP CHAVEZ, ANEU, CBC, TROPHS, GFR, LIP, ADIFF ####[place] [address] [place], [place] [address] Basophils/100 WBC (Bld) 0.4 % Normal 0.0-2.5 [facility] Comment on above: Performed By: #### C TRIPP CHAVEZ, ANEU, CBC, TROPHS, GFR, LIP, ADIFF ####[facility] [place], [place] [address] Eosinophil, Absolute 0.6 10 3/mcL Normal 0.0-0.7 [facility] Comment on above: Performed By: #### C TRIPP CHAVEZ, ANEU, CBC, TROPHS, GFR, LIP, ADIFF ####[facility] [place], [place] [address] Eosinophils/100 WBC (Bld) 4.8 % Normal 0.0-6.0 [facility] Comment on above: Performed By: #### C TRIPP CHAVEZ, ANEU, CBC, TROPHS, GFR, LIP, ADIFF ####[address] [address] Lymphocyte, Absolute 1.8 10 3/mcL Normal 0.9-4.3 [facility] Comment on above: Performed By: #### C TRIPP CHAVEZ, ANEU, CBC, TROPHS, GFR, LIP, ADIFF ####[facility] [address] [place], [place] [address] Lymphocytes/100 WBC (Bld) 15.5 % Low 20.0-40.0 [facility] Comment on above: Performed By: #### C TRIPP CHAVEZ, ANEU, CBC, TROPHS, GFR, LIP, ADIFF ####[place] [address] [place], [place] [address] Monocyte, Absolute 0.6 10 3/mcL Normal 0.1-1.4 [facility] Comment on above: Performed By: #### C TRIPP CHAVEZ, ANEU, CBC, TROPHS, GFR, LIP, ADIFF ####[facility] [address] [address] Monocytes/100 WBC (Bld) 4.7 % Normal 2.0-13.0 [facility] Comment on above: Performed By: #### C TRIPP CHAVEZ, ANEU, CBC, TROPHS, GFR, LIP, ADIFF ####[facility] [address] [place], [place] [address] Neutrophils/100 WBC (Bld) 74.6 % Normal 50.0-75.0 [facility] Comment on above: Performed By: #### C TRIPP CHAVEZ, ANEU, CBC, TROPHS, GFR, LIP, ADIFF ####[facility] [address] [place], [place] [address] .GFRon 07-16-2025 Estimated Glomerular Filtration Rate 108 ml/min/1.73sqm Normal [facility] Comment on above: Result Comment: Stages of [...] ANEU, CBC, TROPHS, GFR, LIP, ADIFF ####[facility] [address] [place], [place] [address] .MDWon 07-16-2025 Monocyte Distribution Width 17.68 Normal 0.00-20.00 [facility] Comment on above: Result Comment: For ED adult patients suspected of sepsis, MDW<=20.0 does not rule out sepsis or risk of sepsis Performed By: #### C TRIPP CHAVEZ, ANEU, CBC, TROPHS, GFR, LIP, ADIFF ####[place] [address] [place], [place] [address] .NEUABSon 07-16-2025 Neutrophil, Absolute 8.8 10 3/mcL High 2.3-8.1 [facility] Comment on above: Performed By: #### C TRIPP CHAVEZ, ANEU, CBC, TROPHS, GFR, LIP, ADIFF ####[facility] [address] [place], [place] [address] CBCon 07-16-2025 Erythrocyte distribution width (RBC) [Ratio] 13.3 % Normal 11.5-15.5 [facility] Comment on above: Performed By: #### C TRIPP CHAVEZ, ANEU, CBC, TROPHS, GFR, LIP, ADIFF ####[facility] [address] [place] [id number] Hematocrit (Bld) [Volume fraction] 39.3 % Normal 34.0-46.0 [facility] Comment on above: Performed By: #### C TRIPP CHAVEZ, ANEU, CBC, TROPHS, GFR, LIP, ADIFF ####[place] [address] [place] [id number] Hgb 13.2 G/dL Normal 12.0-16.0 [facility] Comment on above: Performed By: #### C TRIPP CHAVEZ, ANEU, CBC, TROPHS, GFR, LIP, ADIFF ####[place] [address] [place], [place] [address] MCH (RBC) [Entitic mass] 30.8 pg Normal 27.0-33.0 [facility] Comment on above: Performed By: #### C TRIPP CHAVEZ, ANEU, CBC, TROPHS, GFR, LIP, ADIFF ####[facility] [address] [place], [place] [address] MCHC 33.5 G/dL Normal 32.0-36.0 [facility] Comment on above: Performed By: #### C TRIPP CHAVEZ, ANEU, CBC, TROPHS, GFR, LIP, ADIFF ####[facility] [address] [place], [place] [address] MCV (RBC) [Entitic vol] 92.0 fL Normal 80.0-99.0 [facility] Comment on above: Performed By: #### C TRIPP CHAVEZ, ANEU, CBC, TROPHS, GFR, LIP, ADIFF ####[place] [address] [place], [place] [address] Platelet 241 10 3/mcL Normal 150-450 [facility] Comment on above: Performed By: #### C TRIPP CHAVEZ, ANEU, CBC, TROPHS, GFR, LIP, ADIFF ####[facility] [place], [place] [address] Platelet mean volume (Bld) [Entitic vol] 9.3 fL Normal 6.6-10.5 [facility] Comment on above: Performed By: #### C TRIPP CHAVEZ, ANEU, CBC, TROPHS, GFR, LIP, ADIFF ####[facility] [address] [place], [place] [address] RBC 4.28 10 6/mcL Normal 4.10-5.30 [facility] Comment on above: Performed By: #### C TRIPP CHAVEZ, ANEU, CBC, TROPHS, GFR, LIP, ADIFF ####[facility] [address] [place], [place] [address] WBC 11.8 10 3/mcL High 4.5-10.8 [facility] Comment on above: Performed By: #### C TRIPP CHAVEZ, SHELBY, CBC, TROPHS, GFR, LIP, ADIFF ####[facility] [address] [place], [place] [address] CMPon 07-16-2025 Albumin Level 3.4 G/dL Low 3.5-5.0 [facility] Comment on above: Performed By: #### C TRIPP CHAVEZ, SHELBY, CBC, TROPHS, GFR, LIP, ADIFF ####[facility] [address] [place], [place] [address] Albumin/Globulin [Mass ratio] 0.9 {ratio} Low 1.1-2.5 [facility] Comment on above: Performed By: #### C TRIPP CHAVEZ, SHELBY, CBC, TROPHS, GFR, LIP, ADIFF ####[facility] [address] [place], [place] [address] ALP [Catalytic activity/Vol] 126 U/L Normal 40-135 [facility] Comment on above: Performed By: #### C TRIPP CHAVEZ, SHELBY, CBC, TROPHS, GFR, LIP, ADIFF ####[facility] [address] [place] [id number] ALT [Catalytic activity/Vol] 31 U/L Normal 14-59 [facility] Comment on above: Performed By: #### C TRIPP CHAVEZ, SHELBY, CBC, TROPHS, GFR, LIP, ADIFF ####[facility] [address] [place] [phone] AST [Catalytic activity/Vol] 17 U/L Normal 10-40 [facility] Comment on above: Performed By: #### C TRIPP CHAVEZ, SHELBY, CBC, TROPHS, GFR, LIP, ADIFF ####[facility] [address] [place] [id number] Bili Total 0.2 mg/dL Normal 0.2-1.0 [facility] Comment on above: Result Comment: Use of this assay is not recommended for patients undergoing treatment with eltrombopag due to the potential for falsely elevated results. Performed By: #### C TRIPP CHAVEZ, ANEU, CBC, TROPHS, GFR, LIP, ADIFF ####[place] [place], [place] [address] BUN/Creatinine Ratio 15 ratio Normal 7-27 [facility] Comment on above: Performed By: #### C TRIPP CHAVEZ, ANEU, CBC, TROPHS, GFR, LIP, ADIFF ####[place] [address] [place], [place] [address] Calcium [Mass/Vol] 8.8 mg/dL Normal 8.4-10.2 [facility] Comment on above: Performed By: #### C TRIPP CHAVEZ, ANEU, CBC, TROPHS, GFR, LIP, ADIFF ####[address] [address] Chloride [Moles/Vol] 101 mmol/L Normal 98-107 [facility] Comment on above: Performed By: #### C TRIPP CHAVEZ, ANEU, CBC, TROPHS, GFR, LIP, ADIFF ####[facility] [address] [address] CO2 [Moles/Vol] 27 mmol/L Normal 22-29 [facility] Comment on above: Performed By: #### C TRIPP CHAVEZ, ANEU, CBC, TROPHS, GFR, LIP, ADIFF ####[facility] [address] [address] Creatinine [Mass/Vol] 0.61 mg/dL Normal 0.51-0.95 [facility] Comment on above: Performed By: #### C TRIPP CHAVEZ, ANEU, CBC, TROPHS, GFR, LIP, ADIFF ####[place] [address] [place], [place] [address] Electrolyte Balance 10.0 mEq/L Normal 4.0-15.0 [facility] Comment on above: Performed By: #### C TRIPP CHAVEZ, ANEU, CBC, TROPHS, GFR, LIP, ADIFF ####[address] [address] Globulin 3.9 G/dL Normal 2.7-4.4 [facility] Comment on above: Performed By: #### C TRIPP CHAVEZ, ANEU, CBC, TROPHS, GFR, LIP, ADIFF ####[facility] [place], [place] [address] Glucose [Mass/Vol] 313 mg/dL High 70-105 [facility] Comment on above: Performed By: #### C TRIPP CHAVEZ, ANEU, CBC, TROPHS, GFR, LIP, ADIFF ####[facility] [place], [place] [address] Potassium [Moles/Vol] 3.9 mmol/L Normal 3.5-5.1 [facility] Comment on above: Performed By: #### C TRIPP CHAVEZ, ANEU, CBC, TROPHS, GFR, LIP, ADIFF ####[place] [address] [place], [place] [address] Sodium [Moles/Vol] 138 mmol/L Normal 136-145 [facility] Comment on above: Performed By: #### C TRIPP CHAVEZ, ANEU, CBC, TROPHS, GFR, LIP, ADIFF ####[facility] [place], [place] [address] Total Protein 7.3 G/dL Normal 6.4-8.2 [facility] Comment on above: Performed By: #### C TRIPP CHAVEZ, ANEU, CBC, TROPHS, GFR, LIP, ADIFF ####[facility] [place], [place] [address] Urea nitrogen [Mass/Vol] 9 mg/dL Normal 7-18 [facility] Comment on above: Performed By: #### C TRIPP CHAVEZ, ANEU, CBC, TROPHS, GFR, LIP, ADIFF ####[facility] [place], [place] [address] CT ABD/PELVIS W/ IV CONTRAST ONLYon 07-16-2025 CT ABD/PELVIS W/ IV CONTRAST ONLY ORIGINAL EXAMINATION: CT OF THE ABDOMEN AND PELVIS WITH SAEDRDHD59/8/2025 2:19 pm TECHNIQUE: CT of the abdomen [...] PM Ordering Provider: JERICHO SULTANA RP Normal [facility] LABORATORYOrdered By: Blanka Singletary on 07-16-2025 Glucose [Mass/Vol] 119 mg/dL High 70 - 110 mg/dL [facility] LABORATORYOrdered By: Rae Ji on 07-16-2025 Color [...] ng/L Male: 0-76 ng/L Testing performed on [employer] using a homogeneous sandwich chemiluminescent immunoassay based on [employer] technology. Urea nitrogen [Mass/Vol] 9 mg/dL Normal 7 - 18 mg/dL AO ADM SS Urea nitrogen/Creatinine [Mass ratio] 15 ratio Normal 7 - 27 ratio AO ADM SS WBC (Bld) [#/Vol] 11.8 103/mcL High 4.5 - 10.8 10^3/mcL AO Workflow SS LIPon 07-16-2025 Lipase Level 43 U/L Normal 16-77 [facility] Comment on above: Performed By: #### C TRIPP CHAVEZ, ANEU, CBC, TROPHS, GFR, LIP, ADIFF ####[facility] [address] [place], [place] [address] TROPHSon 07-16-2025 High Sensitivity Troponin I 4 ng/L Normal 0-51 [facility] Comment on above: Result Comment: High Sensitive Troponin I Reference Ranges: Female: 0-51 ng/L Male: 0-76 ng/L Testing performed on [employer] using a homogeneous sandwich chemiluminescent immunoassay based on [employer] technology. Performed By: #### C TRIPP CHAVEZ, ANEU, CBC, TROPHS, GFR, LIP, ADIFF ####[facility] [address] [place], [place] [address] UAon 07-16-2025 Color (U) Yellow Normal Yellow [facility] Comment on above: Performed By: #### U A ####[facility] [address] [place], [place] [address] Glucose (U) [Mass/Vol] 250 mg/dL Abnormal Negative [facility] Comment on above: Performed By: #### U A ####[facility] [address] [place], [place] [address] Ketones Ql (U) Negative Normal Negative [facility] Comment on above: Performed By: #### U A ####[facility] [address] [place], [place] [address] UA Appear Clear Normal Clear [facility] Comment on above: Performed By: #### U A ####[facility] [place] [place], [place] [address] UA Blood Negative Normal Negative [facility] Comment on above: Performed By: #### U A ####[place] [address] UA Leuk Est Negative Normal Negative [facility] Comment on above: Performed By: #### U A ####[place] [address] [place] [address] UA Nitrite Negative Normal Negative [facility] Comment on above: Performed By: #### U A ####[place] [address] [place] [address] UA pH 6.0 Normal 5.0 - 8.0 [facility] Comment on above: Performed By: #### U A ####[facility] [address] [place] [address] UA Protein Negative Normal Negative [facility] Comment on above: Performed By: #### U A ####[place] [address] [place] [address] UA Spec Grav 1.010 Abnormal 1.015-1.025 [facility] Comment on above: Performed By: #### U A ####[place] [address] UA Specimen Type Clean Catch Normal [facility] Comment on above: Performed By: #### U A ####[place] [address] UA Urobilinogen 0.2 E.U./dL Normal 0.2-1.0 [facility] Comment on above: Performed By: #### U A ####[place] [address] Urobilinogen (U) [Mass/Vol] Negative Normal Negative [facility] Comment on above: Performed By: #### U A ####[place] [address] .Auto Diffon 05-03-2025 Basophil, Absolute 0.1 10 3/mcL Normal 0.0-0.3 [facility] Comment on above: Performed By: #### A BRENDON, CBC, MDW, GFR, ADIFF, LIP, CMP ####[facility] [address] [place] [address] Basophils/100 WBC (Bld) 0.5 % Normal 0.0-2.5 [facility] Comment on above: Performed By: #### A BRENDON, CBC, MDW, GFR, ADIFF, LIP, CMP ####[address] [address] Eosinophil, Absolute 0.4 10 3/mcL Normal 0.0-0.7 [facility] Comment on above: Performed By: #### A BRENDON, CBC, MDW, GFR, ADIFF, LIP, CMP ####[address] [address] Eosinophils/100 WBC (Bld) 3.3 % Normal 0.0-6.0 [facility] Comment on above: Performed By: #### A BRENDON, CBC, MDW, GFR, ADIFF, LIP, CMP ####[address] [address] Lymphocyte, Absolute 2.7 10 3/mcL Normal 0.9-4.3 [facility] Comment on above: Performed By: #### A BRENDON, CBC, MDW, GFR, ADIFF, LIP, CMP ####[address] [address] Lymphocytes/100 WBC (Bld) 23.4 % Normal 20.0-40.0 [facility] Comment on above: Performed By: #### A BRENDON, CBC, MDW, GFR, ADIFF, LIP, CMP ####[address] [address] Monocyte, Absolute 0.6 10 3/mcL Normal 0.1-1.4 [facility] Comment on above: Performed By: #### A BRENDON, CBC, MDW, GFR, ADIFF, LIP, CMP ####[address] [address] Monocytes/100 WBC (Bld) 5.5 % Normal 2.0-13.0 [facility] Comment on above: Performed By: #### A BRENDON, CBC, MDW, GFR, ADIFF, LIP, CMP ####[address] [address] Neutrophils/100 WBC (Bld) 67.3 % Normal 50.0-75.0 [facility] Comment on above: Performed By: #### A BRENDON, CBC, MDW, GFR, ADIFF, LIP, CMP ####[facility] [place], [place] [address] .GFRon 05-03-2025 Estimated Glomerular Filtration Rate 74 ml/min/1.73sqm Normal [facility] Comment on above: Result Comment: Stages of [...] BRENDON, CBC, MDW, GFR, ADIFF, LIP, CMP ####[address] [address] .MDWon 05-03-2025 Monocyte Distribution Width 18.33 Normal 0.00-20.00 [facility] Comment on above: Result Comment: For ED adult patients suspected of sepsis, MDW<=20.0 does not rule out sepsis or risk of sepsis Performed By: #### A BRENDON, CBC, MDW, GFR, ADIFF, LIP, CMP ####[place] [address] [place], [place] [address] .NEUABSon 05-03-2025 Neutrophil, Absolute 7.7 10 3/mcL Normal 2.3-8.1 [facility] Comment on above: Performed By: #### A BRENDON, CBC, MDW, GFR, ADIFF, LIP, CMP ####[place] [address] [place], [place] [address] CBCon 05-03-2025 Erythrocyte distribution width (RBC) [Ratio] 13.7 % Normal 11.5-15.5 [facility] Comment on above: Performed By: #### A BRENDON, CBC, MDW, GFR, ADIFF, LIP, CMP ####[place] [address] Hematocrit (Bld) [Volume fraction] 42.5 % Normal 34.0-46.0 [facility] Comment on above: Performed By: #### A BRENDON, CBC, MDW, GFR, ADIFF, LIP, CMP ####[place] [address] Hgb 14.0 G/dL Normal 12.0-16.0 [facility] Comment on above: Performed By: #### A BRENDON, CBC, MDW, GFR, ADIFF, LIP, CMP ####[place] [address] MCH (RBC) [Entitic mass] 30.1 pg Normal 27.0-33.0 [facility] Comment on above: Performed By: #### A BRENDON, CBC, MDW, GFR, ADIFF, LIP, CMP ####[place] [address] MCHC 33.0 G/dL Normal 32.0-36.0 [facility] Comment on above: Performed By: #### A BRENDON, CBC, MDW, GFR, ADIFF, LIP, CMP ####[place] [address] MCV (RBC) [Entitic vol] 91.4 fL Normal 80.0-99.0 [facility] Comment on above: Performed By: #### A BRENDON, CBC, MDW, GFR, ADIFF, LIP, CMP ####[place] [id number] Platelet 227 10 3/mcL Normal 150-450 [facility] Comment on above: Performed By: #### A BRENDON, CBC, MDW, GFR, ADIFF, LIP, CMP ####[place] [address] Platelet mean volume (Bld) [Entitic vol] 8.8 fL Normal 6.6-10.5 [facility] Comment on above: Performed By: #### A BRENDON, CBC, MDW, GFR, ADIFF, LIP, CMP ####[facility] [address] [place], [place] [address] RBC 4.65 10 6/mcL Normal 4.10-5.30 [facility] Comment on above: Performed By: #### A BRENDON, CBC, MDW, GFR, ADIFF, LIP, CMP ####[facility] [address] [place] [id number] WBC 11.5 10 3/mcL High 4.5-10.8 [facility] Comment on above: Performed By: #### A BRENDON, CBC, MDW, GFR, ADIFF, LIP, CMP ####[address] [address] CMPon 05-03-2025 Albumin Level 3.8 G/dL Normal 3.5-5.0 [facility] Comment on above: Performed By: #### A BRENDON, CBC, MDW, GFR, ADIFF, LIP, CMP ####[place] [id number] Albumin/Globulin [Mass ratio] 1.0 {ratio} Low 1.1-2.5 [facility] Comment on above: Performed By: #### A BRENDON, CBC, MDW, GFR, ADIFF, LIP, CMP ####[place] [id number] ALP [Catalytic activity/Vol] 133 U/L Normal 40-135 [facility] Comment on above: Performed By: #### A BRENDON, CBC, MDW, GFR, ADIFF, LIP, CMP ####[address] [address] ALT [Catalytic activity/Vol] 39 U/L Normal 14-59 [facility] Comment on above: Performed By: #### A BRENDON, CBC, MDW, GFR, ADIFF, LIP, CMP ####[address] [address] AST [Catalytic activity/Vol] 23 U/L Normal 10-40 [facility] Comment on above: Performed By: #### A BRENDON, CBC, MDW, GFR, ADIFF, LIP, CMP ####[address] [address] Bili Total 0.2 mg/dL Normal 0.2-1.0 [facility] Comment on above: Result Comment: Use of this assay is not recommended for patients undergoing treatment with eltrombopag due to the potential for falsely elevated results. Performed By: #### A BRENDON, CBC, MDW, GFR, ADIFF, LIP, CMP ####[place] [id number] [place], [place] [address] BUN/Creatinine Ratio 17 ratio Normal 7-27 [facility] Comment on above: Performed By: #### A BRENDON, CBC, MDW, GFR, ADIFF, LIP, CMP ####[address] [address] Calcium [Mass/Vol] 8.9 mg/dL Normal 8.4-10.2 [facility] Comment on above: Performed By: #### A BRENDON, CBC, MDW, GFR, ADIFF, LIP, CMP ####[address] [address] Chloride [Moles/Vol] 98 mmol/L Normal 98-107 [facility] Comment on above: Performed By: #### A BRENDON, CBC, MDW, GFR, ADIFF, LIP, CMP ####[address] [address] CO2 [Moles/Vol] 24 mmol/L Normal 22-29 [facility] Comment on above: Performed By: #### A BRENDON, CBC, MDW, GFR, ADIFF, LIP, CMP ####[address] [address] Creatinine [Mass/Vol] 0.93 mg/dL Normal 0.51-0.95 [facility] Comment on above: Performed By: #### A BRENDON, CBC, MDW, GFR, ADIFF, LIP, CMP ####[address] [address] Electrolyte Balance 11.0 mEq/L Normal 4.0-15.0 [facility] Comment on above: Performed By: #### A BRENDON, CBC, MDW, GFR, ADIFF, LIP, CMP ####[place] [address] [place], [place] [address] Globulin 3.9 G/dL Normal 2.7-4.4 [facility] Comment on above: Performed By: #### A BRENDON, CBC, MDW, GFR, ADIFF, LIP, CMP ####[address] [address] Glucose [Mass/Vol] 447 mg/dL Critically abnormal 70-105 [facility] Comment on above: Performed By: #### A BRENDON, CBC, MDW, GFR, ADIFF, LIP, CMP ####[address] [address] Potassium [Moles/Vol] 4.1 mmol/L Normal 3.5-5.1 [facility] Comment on above: Performed By: #### A BRENDON, CBC, MDW, GFR, ADIFF, LIP, CMP ####[address] [address] Sodium [Moles/Vol] 133 mmol/L Low 136-145 [facility] Comment on above: Performed By: #### A BRENDON, CBC, MDW, GFR, ADIFF, LIP, CMP ####[address] [address] Total Protein 7.7 G/dL Normal 6.4-8.2 [facility] Comment on above: Performed By: #### A BRENDON, CBC, MDW, GFR, ADIFF, LIP, CMP ####[address] [address] Urea nitrogen [Mass/Vol] 16 mg/dL Normal 7-18 [facility] Comment on above: Performed By: #### A BRENDON, CBC, MDW, GFR, ADIFF, LIP, [facility] ####[address] [place], [place] [address] CT ABD/PELVIS W/ IV CONTRAST ONLYon 05-03-2025 [...] 11:00:50 PM Ordering Provider: HARITHA SYLVESTER Normal [facility] LABORATORYOrdered By: Kamala Foster on 05-03-2025 Glucose [Mass/Vol] 289 mg/dL High 70 - 110 mg/dL [facility] LABORATORYOrdered By: SYSTEM SYSTEM on 05-03-2025 Albumin [...] 05-03-2025 Lipase Level 65 U/L Normal 16-77 [facility] Comment on above: Performed By: #### A BRENDON, CBC, MDW, GFR, ADIFF, LIP, CMP ####[address] [place], [place] [address] UAon 05-03-2025 Color (U) Yellow Normal [facility] Comment on above: Performed By: #### U A ####[address] [place], [place] [address] Glucose (U) [Mass/Vol] mg/dL Abnormal Negative [facility] Comment on above: Performed By: #### U A ####[address] [place], [place] [address] Ketones Ql (U) Negative Normal Negative [facility] Comment on above: Performed By: #### U A ####[place] [address] [place], [place] [address] UA Appear Clear Normal Clear [facility] Comment on above: Performed By: #### U A ####[address] [place], [place] [address] UA Blood Negative Normal Negative [facility] Comment on above: Performed By: #### U A ####[address] [place], [place] [address] UA Leuk Est Negative Normal Negative [facility] Comment on above: Performed By: #### U A ####[address] [address] UA Nitrite Negative Normal Negative [facility] Comment on above: Performed By: #### U A ####[address] [place] [address] UA pH 6.0 Normal 5.0 - 8.0 [facility] Comment on above: Performed By: #### U A ####[place] [address] [place] [address] UA Protein Negative Normal Negative [facility] Comment on above: Performed By: #### U A ####[address] [place] [address] UA Spec Grav 1.015 Normal 1.015-1.025 [facility] Comment on above: Performed By: #### U A ####[address] [place] [address] UA Specimen Type Not Given Normal [facility] Comment on above: Performed By: #### U A ####[address] [place] [address] UA Urobilinogen 0.2 E.U./dL Normal 0.2-1.0 [facility] Comment on above: Performed By: #### U A ####[place] [address] [place] [address] Urobilinogen (U) [Mass/Vol] Negative Normal Negative [facility] Comment on above: Performed By: #### U A ####[place] [address] [place] [address] XR KNEE THREE VIEWS LEFTon 0 04-30-2025 [...] 04/30/2025 5:01:40 PM Ordering Provider: LIBBY SUAZO [facility] XR FOOT MINIMUM 3 VIEWS [place] [...] 03/15/2025 3:52:39 PM Ordering Provider: ABI LOPEZ [facility] XR HAND MINIMUM 3 VIEWS LEFT on [...] 2:19:56 PM Ordering Provider: ABI LOPEZ Normal [facility] APOBon 03-06-2025 Apolipoprotein B [Mass/Vol] 125 mg/dL High <90 [facility] Comment on above: Result Comment: Jessie rable < 90 Borderline High 90 - 99 High 100 - 130 Very High >130 ASCVD RISK THERAPEUTIC TARGET CATEGORY APO B (mg/dL) Very High Risk <80 (if extreme risk <70) High Risk <90 Moderate Risk <90 Performed At: [facility] [id number] Vaibhav Caba MD Ph:[phone] Performed By: #### A BRENDON, CBC, A1C, 783074, LIPID, CMP, [id number], TSHR, MG, GFR, VIDH, FERR, ADIFF, FES ####[facility] [place], [place] [address]#### B12 ####[address] [address] LIPOAon 03-06-2025 Lipoprotein a [Moles/Vol] 9.0 nmol/L Normal <75.0 [facility] Comment on above: Result Comment: This test [...] factors on Lp(a) across ethnicities. Performed At: [facility] [id number] Ryan Stark PhD Ph:[phone] Performed By: #### A BRENDON, CBC, A1C, 634315, LIPID, CMP, [id number], TSHR, MG, GFR, VIDH, FERR, ADIFF, FES ####[place] [address]#### B12 ####[place] [address] B12on 03-05-2025 Cobalamin (Vitamin B12) [Mass/Vol] 1989 pg/mL High 211-911 [facility] Comment on above: Performed By: #### A BRENDON, CBC, A1C, 151782, LIPID, CMP, [id number], TSHR, MG, GFR, VIDH, FERR, ADIFF, FES ####[place] [address]#### B12 ####[place] [address] .Auto Diffon 03-04-2025 Basophil, Absolute 0.1 10 3/mcL Normal 0.0-0.3 [facility] Comment on above: Performed By: #### A BRENDON, CBC, A1C, 933338, LIPID, CMP, [id number], TSHR, MG, GFR, VIDH, FERR, ADIFF, FES ####[place] [address]#### B12 ####[place] [address] Basophils/100 WBC (Bld) 0.8 % Normal 0.0-2.5 [facility] Comment on above: Performed By: #### A BRENDON, CBC, A1C, 861343, LIPID, CMP, [id number], TSHR, MG, GFR, VIDH, FERR, ADIFF, FES ####[place] [address]#### B12 ####[address] [address] Eosinophil, Absolute 0.6 10 3/mcL Normal 0.0-0.7 [facility] Comment on above: Performed By: #### A BRENDON, CBC, A1C, 493964, LIPID, CMP, [id number], TSHR, MG, GFR, VIDH, FERR, ADIFF, FES ####[place] [address]#### B12 ####[address] [address] Eosinophils/100 WBC (Bld) 5.9 % Normal 0.0-6.0 [facility] Comment on above: Performed By: #### A BRENDON, CBC, A1C, 918169, LIPID, CMP, [id number], TSHR, MG, GFR, VIDH, FERR, ADIFF, FES ####[place] [address]#### B12 ####[address] [address] Lymphocyte, Absolute 2.9 10 3/mcL Normal 0.9-4.3 [facility] Comment on above: Performed By: #### A BRENDON, CBC, A1C, 933105, LIPID, CMP, [id number], TSHR, MG, GFR, VIDH, FERR, ADIFF, FES ####[place] [address]#### B12 ####[address] [address] Lymphocytes/100 WBC (Bld) 27.8 % Normal 20.0-40.0 [facility] Comment on above: Performed By: #### A BRENDON, CBC, A1C, 832922, LIPID, CMP, [id number], TSHR, MG, GFR, VIDH, FERR, ADIFF, FES ####[address] [address]#### B12 ####[address] [address] Monocyte, Absolute 0.6 10 3/mcL Normal 0.1-1.4 [facility] Comment on above: Performed By: #### A BRENDON, CBC, A1C, 605301, LIPID, CMP, [id number], TSHR, MG, GFR, VIDH, FERR, ADIFF, FES ####[place] [address]#### B12 ####[address] [address] Monocytes/100 WBC (Bld) 6.2 % Normal 2.0-13.0 [facility] Comment on above: Performed By: #### A BRENDON, CBC, A1C, 164160, LIPID, CMP, [id number], TSHR, MG, GFR, VIDH, FERR, ADIFF, FES ####[place] [address]#### B12 ####[address] [address] Neutrophils/100 WBC (Bld) 59.3 % Normal 50.0-75.0 [facility] Comment on above: Performed By: #### A BRENDON, CBC, A1C, 319817, LIPID, CMP, [id number], TSHR, MG, GFR, VIDH, FERR, ADIFF, FES ####[place] [address]#### B12 ####[address] [address] .GFRon 03-04-2025 Estimated Glomerular Filtration Rate 92 ml/min/1.73sqm Normal [facility] Comment on above: Result Comment: Stages of [...] Performed By: #### A BRENDON, CBC, A1C, 907649, LIPID, CMP, [id number], TSHR, MG, GFR, VIDH, FERR, ADIFF, FES ####[address] [address]#### B12 ####[address] [address] .NEUABSon 03-04-2025 Neutrophil, Absolute 6.1 10 3/mcL Normal 2.3-8.1 [facility] Comment on above: Performed By: #### A BRENDON, CBC, A1C, 261245, LIPID, CMP, [id number], TSHR, MG, GFR, VIDH, FERR, ADIFF, FES ####[address] [address]#### B12 ####[place] [address] A1Con 03-04-2025 Glucose [Mass/Vol] 283 mg/dL Normal [facility] Comment on above: Result Comment: Payton mated Average Glucose calculated by equation ((28.7xA1C)-46.7) Estimated average glucose (eAG) is a calculated value from Hemoglobin A1C and is herbicide service sales representative of the average blood glucose level in the last 2-3 month period. Normal range: less than 114 mg/dL Performed By: #### A BRENDON, CBC, A1C, 721610, LIPID, CMP, [id number], TSHR, MG, GFR, VIDH, FERR, ADIFF, FES ####[address] [address]#### B12 ####[address] [address] HbA1c (Bld) [Mass fraction] 11.5 % High 4.3-6.4 [facility] Comment on above: Performed By: #### A BRENDON, CBC, A1C, 002397, LIPID, CMP, [id number], TSHR, MG, GFR, VIDH, FERR, ADIFF, FES ####[address] [address]#### B12 ####[address] [address] CBCon 03-04-2025 Erythrocyte distribution width (RBC) [Ratio] 13.1 % Normal 11.5-15.5 [facility] Comment on above: Performed By: #### A BRENDON, CBC, A1C, 040249, LIPID, CMP, [id number], TSHR, MG, GFR, VIDH, FERR, ADIFF, FES ####[place] [address]#### B12 ####[address] [address] Hematocrit (Bld) [Volume fraction] 41.4 % Normal 34.0-46.0 [facility] Comment on above: Performed By: #### A BRENDON, CBC, A1C, 659013, LIPID, CMP, [id number], TSHR, MG, GFR, VIDH, FERR, ADIFF, FES ####[place] [address]#### B12 ####[place] [address] Hgb 14.1 G/dL Normal 12.0-16.0 [facility] Comment on above: Performed By: #### A BRENDON, CBC, A1C, 801700, LIPID, CMP, [id number], TSHR, MG, GFR, VIDH, FERR, ADIFF, FES ####[address] [address]#### B12 ####[address] [address] MCH (RBC) [Entitic mass] 31.1 pg Normal 27.0-33.0 [facility] Comment on above: Performed By: #### A BRENDON, CBC, A1C, 174401, LIPID, CMP, [id number], TSHR, MG, GFR, VIDH, FERR, ADIFF, FES ####[place] [address]#### B12 ####[place] [address] MCHC 34.0 G/dL Normal 32.0-36.0 [facility] Comment on above: Performed By: #### A BRENDON, CBC, A1C, 476081, LIPID, CMP, [id number], TSHR, MG, GFR, VIDH, FERR, ADIFF, FES ####[place] [address]#### B12 ####[place] [address] MCV (RBC) [Entitic vol] 91.3 fL Normal 80.0-99.0 [facility] Comment on above: Performed By: #### A BRENDON, CBC, A1C, 499850, LIPID, CMP, [id number], TSHR, MG, GFR, VIDH, FERR, ADIFF, FES ####[place] [address]#### B12 ####[place] [address] Platelet 220 10 3/mcL Normal 150-450 [facility] Comment on above: Performed By: #### A BRENDON, CBC, A1C, 471230, LIPID, CMP, [id number], TSHR, MG, GFR, VIDH, FERR, ADIFF, FES ####[place] [address]#### B12 ####[place] [address] Platelet mean volume (Bld) [Entitic vol] 9.8 fL Normal 6.6-10.5 [facility] Comment on above: Performed By: #### A BRENDON, CBC, A1C, 651123, LIPID, CMP, [id number], TSHR, MG, GFR, VIDH, FERR, ADIFF, FES ####[place] [address]#### B12 ####[place] [address] RBC 4.53 10 6/mcL Normal 4.10-5.30 [facility] Comment on above: Performed By: #### A BRENDON, CBC, A1C, 173651, LIPID, CMP, [id number], TSHR, MG, GFR, VIDH, FERR, ADIFF, FES ####[place] [address]#### B12 ####[place] [address] WBC 10.3 10 3/mcL Normal 4.5-10.8 [facility] Comment on above: Performed By: #### A BRENDON, CBC, A1C, 671938, LIPID, CMP, [id number], TSHR, MG, GFR, VIDH, FERR, ADIFF, FES ####[place] [address]#### B12 ####[place] [address] CMPon 03-04-2025 Albumin Level 3.8 G/dL Normal 3.5-5.0 [facility] Comment on above: Performed By: #### A BRENDON, CBC, A1C, 468206, LIPID, CMP, [id number], TSHR, MG, GFR, VIDH, FERR, ADIFF, FES ####[place] [address]#### B12 ####[place] [address] Albumin/Globulin [Mass ratio] 0.8 {ratio} Low 1.1-2.5 [facility] Comment on above: Performed By: #### A BRENDON, CBC, A1C, 175150, LIPID, CMP, [id number], TSHR, MG, GFR, VIDH, FERR, ADIFF, FES ####[place] [address]#### B12 ####[place] [address] ALP [Catalytic activity/Vol] 136 U/L High 40-135 [facility] Comment on above: Performed By: #### A BRENDON, CBC, A1C, 565588, LIPID, CMP, [id number], TSHR, MG, GFR, VIDH, FERR, ADIFF, FES ####[place] [id number]#### B12 ####[address] [address] ALT [Catalytic activity/Vol] 43 U/L Normal 14-59 [facility] Comment on above: Performed By: #### A BRENDON, CBC, A1C, 934556, LIPID, CMP, [id number], TSHR, MG, GFR, VIDH, FERR, ADIFF, FES ####[place] [address]#### B12 ####[place] [address] AST [Catalytic activity/Vol] 32 U/L Normal 10-40 [facility] Comment on above: Performed By: #### A BRENDON, CBC, A1C, 073252, LIPID, CMP, [id number], TSHR, MG, GFR, VIDH, FERR, ADIFF, FES ####[place] [address]#### B12 ####[place] [address] Bili Total 0.3 mg/dL Normal 0.2-1.0 [facility] Comment on above: Result Comment: Use of this assay is not recommended for patients undergoing treatment with eltrombopag due to the potential for falsely elevated results. Performed By: #### A BRENDON, CBC, A1C, 254572, LIPID, CMP, [id number], TSHR, MG, GFR, VIDH, FERR, ADIFF, FES ####[place] [address]#### B12 ####[place] [address] BUN/Creatinine Ratio 14 ratio Normal 7-27 [facility] Comment on above: Performed By: #### A BRENDON, CBC, A1C, 640328, LIPID, CMP, [id number], TSHR, MG, GFR, VIDH, FERR, ADIFF, FES ####[place] [address]#### B12 ####[address] [address] Calcium [Mass/Vol] 9.5 mg/dL Normal 8.4-10.2 [facility] Comment on above: Performed By: #### A BRENDON, CBC, A1C, 901659, LIPID, CMP, [id number], TSHR, MG, GFR, VIDH, FERR, ADIFF, FES ####[place] [address]#### B12 ####[place] [address] Chloride [Moles/Vol] 100 mmol/L Normal 98-107 [facility] Comment on above: Performed By: #### A BRENDON, CBC, A1C, 389094, LIPID, CMP, [id number], TSHR, MG, GFR, VIDH, FERR, ADIFF, FES ####[place] [address]#### B12 ####[place] [address] CO2 [Moles/Vol] 27 mmol/L Normal 22-29 [facility] Comment on above: Performed By: #### A BRENDON, CBC, A1C, 261422, LIPID, CMP, [id number], TSHR, MG, GFR, VIDH, FERR, ADIFF, FES ####[place] [address]#### B12 ####[place] [address] Creatinine [Mass/Vol] 0.78 mg/dL Normal 0.51-0.95 [facility] Comment on above: Performed By: #### A BRENDON, CBC, A1C, 467207, LIPID, CMP, 405470, TSHR, MG, GFR, VIDH, FERR, ADIFF, FES ####[place] [address]#### B12 ####[place] [address] Electrolyte Balance 11.0 mEq/L Normal 4.0-15.0 [facility] Comment on above: Performed By: #### A BRENDON, CBC, A1C, 759121, LIPID, CMP, [id number], TSHR, MG, GFR, VIDH, FERR, ADIFF, FES ####[place] [address]#### B12 ####[place] [address] Globulin 4.6 G/dL High 2.7-4.4 [facility] Comment on above: Performed By: #### A BRENDON, CBC, A1C, 063621, LIPID, CMP, [id number], TSHR, MG, GFR, VIDH, FERR, ADIFF, FES ####[place] [address]#### B12 ####[place] [address] Glucose [Mass/Vol] 280 mg/dL High 70-105 [facility] Comment on above: Performed By: #### A BRENDON, CBC, A1C, 296991, LIPID, CMP, [id number], TSHR, MG, GFR, VIDH, FERR, ADIFF, FES ####[place] [address]#### B12 ####[place] [address] Potassium [Moles/Vol] 3.8 mmol/L Normal 3.5-5.1 [facility] Comment on above: Performed By: #### A BRENDON, CBC, A1C, 872553, LIPID, CMP, [id number], TSHR, MG, GFR, VIDH, FERR, ADIFF, FES ####[place] [address]#### B12 ####[place] [address] Sodium [Moles/Vol] 138 mmol/L Normal 136-145 [facility] Comment on above: Performed By: #### A BRENDON, CBC, A1C, 697623, LIPID, CMP, [id number], TSHR, MG, GFR, VIDH, FERR, ADIFF, FES ####[place] [address]#### B12 ####[place] [address] Total Protein 8.4 G/dL High 6.4-8.2 [facility] Comment on above: Performed By: #### A BRENDON, CBC, A1C, 498794, LIPID, CMP, [id number], TSHR, MG, GFR, VIDH, FERR, ADIFF, FES ####[place] [address]#### B12 ####[place] [address] Urea nitrogen [Mass/Vol] 11 mg/dL Normal 7-18 [facility] Comment on above: Performed By: #### A BRENDON, CBC, A1C, 630762, LIPID, CMP, [id number], TSHR, MG, GFR, VIDH, FERR, ADIFF, FES ####[place] [address]#### B12 ####[place] [address] Ruy 03-04-2025 Ferritin [Mass/Vol] 136.0 ng/mL Normal 8.0-252.0 [facility] Comment on above: Performed By: #### A BRENDON, CBC, A1C, 928715, LIPID, CMP, [id number], TSHR, MG, GFR, VIDH, FERR, ADIFF, FES ####[place] [address]#### B12 ####[place] [address] FESon 03-04-2025 Iron [Mass/Vol] 57 ug/dL Normal 50-170 [facility] Comment on above: Performed By: #### A BRENDON, CBC, A1C, 433976, LIPID, CMP, [id number], TSHR, MG, GFR, VIDH, FERR, ADIFF, FES ####[facility] [place], [place] [address]#### B12 ####[place] [address] Iron Sat 17 % Normal [facility] Comment on above: Performed By: #### A BRENDON, CBC, A1C, 225642, LIPID, CMP, [id number], TSHR, MG, GFR, VIDH, FERR, ADIFF, FES ####[address] [address]#### B12 ####[place] [address] TIBC 330 mcg/dL Normal 250-450 [facility] Comment on above: Performed By: #### A BRENDON, CBC, A1C, 332237, LIPID, CMP, [id number], TSHR, MG, GFR, VIDH, FERR, ADIFF, FES ####[place] [address]#### B12 ####[place] [address] LABORATORYOrdered By: SYSTEM SYSTEM on 03-04-2025 25-hydroxyvitamin [...] calculated value from Hemoglobin A1C and is herbicide service sales representative of the average blood glucose level [...] 03-04-2025 Cholesterol [Mass/Vol] 210 mg/dL High 0-200 [facility] Comment on above: Result Comment: Chol esterol Reference Interval: Less than 200 Desirable 200-239 Borderline high risk 240 and above High risk Performed By: #### A BRENDON, CBC, A1C, 638702, LIPID, CMP, [id number], TSHR, MG, GFR, VIDH, FERR, ADIFF, FES ####[place] [address]#### B12 ####[address] [address] Cholesterol in HDL [Mass/Vol] 37 mg/dL Low 40-60 [facility] Comment on above: Performed By: #### A BRENDON, CBC, A1C, 398212, LIPID, CMP, [id number], TSHR, MG, GFR, VIDH, FERR, ADIFF, FES ####[place] [address]#### B12 ####[address] [address] Cholesterol in LDL [Mass/Vol] 105 mg/dL Normal 0-130 [facility] Comment on above: Performed By: #### A BRENDON, CBC, A1C, 069526, LIPID, CMP, [id number], TSHR, MG, GFR, VIDH, FERR, ADIFF, FES ####[place] [address]#### B12 ####[address] [address] Triglyceride [Mass/Vol] 340 mg/dL High 0-150 [facility] Comment on above: Result Comment: Trig lyceride Reference Interval: Less than 150 Normal 150-199 Borderline high risk 200-499 High risk 500 or higher Very high risk Performed By: #### A BRENDON, CBC, A1C, 380585, LIPID, CMP, [id number], TSHR, MG, GFR, VIDH, FERR, ADIFF, FES ####[place] [address]#### B12 ####[address] [address] MGon 03-04-2025 Magnesium [Mass/Vol] 2.1 mg/dL Normal 1.8-2.4 [facility] Comment on above: Performed By: #### A BRENDON, CBC, A1C, 056979, LIPID, CMP, [id number], TSHR, MG, GFR, VIDH, FERR, ADIFF, FES ####[place] [address]#### B12 ####[address] [address] TSHRon 03-04-2025 TSH Qn 1.54 m[IU]/L Normal 0.36-3.74 [facility] Comment on above: Performed By: #### A BRENDON, CBC, A1C, 093988, LIPID, CMP, [id number], TSHR, MG, GFR, VIDH, FERR, ADIFF, FES ####[facility] [place], [place] [address]#### B12 ####[place] [address] VIDHon 03-04-2025 Vit. D 25-Hydroxy 22.4 ng/mL Normal [facility] Comment on above: Result Comment: Inte rpretive Values Based on Total 25(OH) Vitamin D: Deficient <20 ng/mL Insufficient 20 - <30 ng/mL Sufficient 30-100 ng/mL Performed By: #### A BRENDON, CBC, A1C, 237530, LIPID, CMP, [id number], TSHR, MG, GFR, VIDH, FERR, ADIFF, FES ####[facility] [place], [place] [address]#### B12 ####[place] [address] ED MED ADMINISTRATION DETAIL on 02-01-2025 ED MED ADMINISTRATION DETAIL [employer] Medication Administration Record [address] [address] [id number] 01/29/2025 Patient: KARLIE GOVEA Sex: Female : [...] Rosaura Palmer R.N. 1 of 1 Normal [facility] ED NURSES CLINICAL NOTEon ED NURSES CLINICAL NOTE Nurse Narrative Nurse Clinical Narrative [address] [address] [id number] 01/29/2025 08:35:00 Patient: KARLIE GOVEA Sex: Female [...] ANN Vanegas R.N. 08:39 01/29/25. Preferred Pharmacy: [facility]. -- 08:49 01/29/25 JO ANN Vanegas R.N. Allergies: no known drug allergies -- 08:40 01/29/25 ANDREAT Ellyn Vanegsa R.N. Problems: Cancer. Breast -- 08:41 01/29/25 [...] R.N. DISPOSITIO (more content not included)... Normal [facility] ED ORDER SHEET (CPOE ONLY)on 02-01-2025 ED ORDER SHEET (CPOE ONLY) Order Sheet Order Sheet [address] [place] [address] [id number] 01/29/2025 Patient: KARLIE GOVEA Sex: Female : [...] Ellyn Molina Natalie Yoder, D.O. R.NMelly RMellyNMelly Sales Service Professional 08:38 01/29/2025 08:51 01/29/2025 09:33 01/29/2025 Ellyn Molina Natalie Yoder, D.O. R.NMelly R.NMelly Oxygen titrate to 92% 08:38 01/29/2025 09:33 01/29/2025 Ellyn Molina D.O. RMellyNMelly Pulse Oximeter 08:38 01/29/2025 09:33 01/29/2025 Ellyn Molina D.O. RSierra [Electronically signed by Jericho Hernandez D.O. (02/01/2025 00:50 EDT)] 3 of 3 Normal [facility] ED PHYSICIAN CLINICAL REPORT on 02-01-2025 ED PHYSICIAN CLINICAL REPORT Narrative Physician Clinical Narrative [address] [address] [id number] 01/29/2025 08:35:00 Patient: KARLIE GOVEA Sex: Female [...] 1.50 - 7.10 Final EDT 01/29/2025 10:14 [place] # 0.65 x10/UL 0.20 - 1.00 Final [...] Final Be (more content not included)... Normal [facility] ED SUPER BILLon 02-01-2025 ED SUPER BILL [address] [address] [id number] 01/29/2025 Patient: KARLIE GOVEA Sex: Female : 1975 Age: 50y Item Facility Professional Category Description Code Code Quantity Fee Total Nurse/E/M EMERGENCY 295369 1 $0.00 $0.00 DEPARTMENT VISIT HIGH/URGENT SEVERITY (18805-27) Nurse/IV/IM/Infusions IM/SQ (23406) 237284 1 $0.00 $0.00 Grand Total $0.00 Providers Jericho Hernandez D.O. Chief Complaint ear pain. Principal Diagnosis Recurrent right otitis media. Depression. Poorly controlled type 2 diabetes with hyperglycemia. 1 of 2 [facility] ICD-10 Codes H66.91: Otitis media, unspecified, right ear F32.9: Major depressive disorder, single episode, unspecified 2 of 2 Normal [facility] ED VISIT SUMMARYon ED VISIT SUMMARY Visit Overview Visit Overview [address] [address] [id number] 01/29/2025 Patient: KARLIE GOVEA Sex: Female : [...] RIGHT OTITIS MEDIA 3 of 3 Normal [facility] ED VITALS FLOW SHEETon 02-01 ED VITALS FLOW SHEET Vitals Vital Sign Flow Sheet [facility] [address] [place] [address] [id number] 01/29/2025 Patient: KARLIE GOVEA Sex: Female : [...] 136/116 122 100 2 of 2 Normal [facility] CBC + DIFFon 01-29-2025 Baso # 0.02 x10EE3/UL Normal 0.00 - 0.10 [facility] Comment on above: Performed By: #### 2 [id number] ####[facility],[address] [place] [id number] Basophils/100 WBC (Bld) 0.3 % Normal 0.0 - 2.0 [facility] Comment on above: Performed By: #### 2 [id number] ####[facility],[address] [place] [address] CBC + DIFF Normal [facility] Comment on above: Result Comment: CBC- COMPLETE BLOOD COUNT Performed By: #### 2 [id number] ####[facility] [facility],[address] [place] [address] EO # 0.09 x10EE3/UL Normal 0.00 - 0.50 [facility] Comment on above: Performed By: #### 2 55056 ####[facility],[address] [place] [address] 67861 Eosinophils/100 WBC (Bld) 1.2 % Normal 0.0 - 7.0 [facility] Comment on above: Performed By: #### 2 53456 ####[facility],[address] [place] [address] 48239 Erythrocyte distribution width (RBC) [Ratio] 13.4 % Normal 12.0 - 15.6 [facility] Comment on above: Performed By: #### 2 06281 ####[facility],[address] [place], [place] [address] Hematocrit (Bld) [Volume fraction] 42.0 % Normal 34.0 - 46.0 [facility] Comment on above: Performed By: #### 2 86410 ####[facility],[address] [place] [address] Hemoglobin (Bld) [Mass/Vol] 14.5 g/dL Normal 12.0 - 16.0 [facility] Comment on above: Performed By: #### 2 84252 ####[facility],[address] [place] [address] Lymph # 1.62 x10EE3/UL Normal 0.80 - 2.80 [facility] Comment on above: Performed By: #### 2 74528 ####[place] [address] Lymphocytes/100 WBC (Bld) 21.4 % Normal 20.0 - 45.0 [facility] Comment on above: Performed By: #### 2 44020 ####[facility],[address] [place] [address] MANUAL DIFF N/A Normal [facility] Comment on above: Performed By: #### 2 09128 ####[place] [address] MCH (RBC) [Entitic mass] 31 pg Normal 27 - 33 [facility] Comment on above: Performed By: #### 2 11460 ####[place] [address] MCHC 35 X10 3 Normal 32 - 36 [facility] Comment on above: Performed By: #### 2 78133 ####[place] [id number] MCV (RBC) [Entitic vol] 91 fL Normal 80 - 99 [facility] Comment on above: Performed By: #### 2 30845 ####[place] [address] [place] # 0.65 x10EE3/UL Normal 0.20 - 1.00 [facility] Comment on above: Performed By: #### 2 26160 ####[facility],[address] [place] [address] 17916 MONOS % 8.6 % Normal 0.0 - 10.0 [facility] Comment on above: Performed By: #### 2 73350 ####[facility],[address] [place] [address] Morphology Zeeshan (Bld) [Interp] N/A Normal [facility] Comment on above: Performed By: #### 2 00233 ####[facility],[address] [place] [address] Neut # 5.20 x10EE3/UL Normal 1.50 - 7.10 [facility] Comment on above: Performed By: #### 2 85621 ####[facility],[address] [place] [address] Neutrophils/100 WBC (Bld) 68.5 % Normal 46.0 - 76.0 [facility] Comment on above: Performed By: #### 2 04318 ####[facility],[address] [place] [address] PLATELET 208 x10EE3/UL Normal 150 - 450 [facility] Comment on above: Performed By: #### 2 29948 ####[facility],[address] [place] [address] Platelet mean volume (Bld) [Entitic vol] 9.1 fL Normal 6.6 - 10.5 [facility] Comment on above: Result Comment: AUTO MATED DIFFERENTIAL Performed By: #### 2 81576 ####[facility],[address] [place], [place] [address] RBC 4.63 x 10EE6/UL Normal 4.10 - 5.30 [facility] Comment on above: Performed By: #### 2 66225 ####[facility],[address],[place] [address] WBC 7.6 x 10EE3/UL Normal 4.5 - 10.8 [facility] Comment on above: Performed By: #### 2 44987 ####[facility],[address] [place] [address] 22675 CMP with eGFRon 01-29-2025 AGE 50 years Normal [facility] Comment on above: Performed By: #### 2 53935 ####[facility],[address] [place] [address] Albumin [Mass/Vol] 3.7 g/dL Normal 3.4 - 5.0 [facility] Comment on above: Performed By: #### 2 88446 ####[facility],[address] [place] [address] Albumin/Globulin [Mass ratio] 0.8 {ratio} Low 0.9 - 1.6 [facility] Comment on above: Performed By: #### 2 49157 ####[facility],[address] [place] [address] 08851 ALK PHOS 141 U/L High 46 - 116 [facility] Comment on above: Performed By: #### 2 15353 ####[facility],[address] [place], [place] [address] ALT [Catalytic activity/Vol] 38 U/L Normal 16 - 63 [facility] Comment on above: Performed By: #### 2 62878 ####[facility],[address] [place] [address] 80966 Anion gap [Moles/Vol] 15 mmol/L Normal 10 - 20 [facility] Comment on above: Performed By: #### 2 16016 ####[facility],[address] [place] [address] 35982 AST [Catalytic activity/Vol] 30 U/L Normal 13 - 39 [facility] Comment on above: Performed By: #### 2 71270 ####[facility],[address] [place] [address] 74613 B/C RATIO 9 ratio Normal 0 - 30 [facility] Comment on above: Performed By: #### 2 71025 ####[facility],[address] [place] [address] 51588 Bilirubin [Mass/Vol] 0.4 mg/dL Normal 0.2 - 1.0 [facility] Comment on above: Performed By: #### 2 70013 ####[facility],[address] [place] [address] 08272 Calcium [Mass/Vol] 9.1 mg/dL Normal 8.5 - 10.1 [facility] Comment on above: Performed By: #### 2 16572 ####[facility],[address] [place], [place] [address] Chloride [Moles/Vol] 97 mmol/L Low 98 - 107 [facility] Comment on above: Performed By: #### 2 17717 ####[facility],[address] [place], [place] [address] CMP with eGFR Normal [facility] Comment on above: Result Comment: COMP REHENSIVE METABOLIC PANEL Performed By: #### 2 00993 ####[facility],[address] [place] [address] 09160 CO2 [Moles/Vol] 25.2 mmol/L Normal 21.0 - 32.0 [facility] Comment on above: Performed By: #### 2 23637 ####[facility],[address] [place] [address] 76183 Creatinine [Mass/Vol] 0.90 mg/dL Normal 0.55 - 1.02 [facility] Comment on above: Performed By: #### 2 41113 ####[facility],[address] [place] [address] 16374 GFR/1.73 sq M.predicted among non-blacks MDRD (S/P/Bld) [Vol rate/Area] mL/min/{1.73_m2} Normal 60 - 999 [facility] Comment on above: Performed By: #### 2 38768 ####[facility],[address] [place] [address] 22050 Result Comment: ACCO RDING TO THE NATIONAL KIDNEY DISEASE EDUCATION PROGRAM(NKDE), A NORMAL eGFR IS A VALUE GREATER THAN OR EQUAL TO 60 ML/MIN/1.73 SQ METERS. CHRONIC KIDNEY DISEASE: <60mL/MIN/1.73 SQ METERS KIDNEY FAILURE: <15mL/MIN/1.73 SQ METERS THIS TEST SHOULD ONLY BE USED FOR PATIENTS 18 YEARS OF AGE AND OLDER. Globulin (S) [Mass/Vol] 4.5 g/dL High 1.5 - 3.8 [facility] Comment on above: Performed By: #### 2 54196 ####[facility],[address] [place] [address] 81946 Glucose [Mass/Vol] 430 mg/dL High 74 - 106 [facility] Comment on above: Performed By: #### 2 27034 ####[facility],[address] [place] [address] 81683 Potassium [Moles/Vol] 3.7 mmol/L Normal 3.5 - 5.1 [facility] Comment on above: Performed By: #### 2 99696 ####[facility],[address] [place] [address] 82278 Protein [Mass/Vol] 8.2 g/dL Normal 6.4 - 8.2 [facility] Comment on above: Performed By: #### 2 88922 ####[facility],[address] [place] [address] 87874 Sodium [Moles/Vol] 133 mmol/L Low 136 - 145 [facility] Comment on above: Performed By: #### 2 24476 ####[facility],[address] [place] [address] 44217 Urea nitrogen [Mass/Vol] 8 mg/dL Normal 7 - 18 [facility] Comment on above: Performed By: #### 2 86211 ####[facility],[address] [place] [address] 69621 TROPONINon 01-29-2025 HS TROPONIN <4.0 Normal 0.0 - 51.4 [facility] Comment on above: Performed By: #### 2 65586 ####[facility],[address] [place], [place] [address] LABORATORYOrdered By: Osmel Maher on 01-16-2025 Appearance [...] a homogeneous sandwich chemiluminescent immunoassay based on Principle Power technology. [facility] High Sensitivity Troponin I 6 ng/L Normal 0-51 [facility] Comment on above: Result Comment: High Sensitive Troponin I Reference Ranges: Female: 0-51 ng/L Male: 0-76 ng/L Testing performed on Dimension EXL using a homogeneous sandwich chemiluminescent immunoassay based on Principle Power technology. Performed By: #### T ABBEHS ####[address] [place] [address] UAon 01-16-2025 Color (U) Yellow Normal [facility] Comment on above: Performed By: #### U A, UAMIC ####[address] [place] [address] Glucose (U) [Mass/Vol] mg/dL Abnormal Negative [facility] Comment on above: Performed By: #### U A, UAMIC ####[address] [place] [address] Ketones Ql (U) Trace Abnormal Negative [facility] Comment on above: Performed By: #### U A, UAMIC ####[address] [place], [place] [address] UA Appear Slightly Cloudy Abnormal Clear [facility] Comment on above: Performed By: #### U A, UAMIC ####[address] [place], [place] [address] UA Blood Negative Normal Negative [facility] Comment on above: Performed By: #### U A, UAMIC ####[address] [place], [place] [address] UA Leuk Est Small Abnormal Negative [facility] Comment on above: Performed By: #### U A, UAMIC ####[address] [place], [place] [address] UA Nitrite Negative Normal Negative [facility] Comment on above: Performed By: #### U A, UAMIC ####[address] [place], [place] [address] UA pH 6.0 Normal 5.0 - 8.0 [facility] Comment on above: Performed By: #### U A, UAMIC ####[address] [place] [address] UA Protein Trace Normal Negative [facility] Comment on above: Performed By: #### U A, UAMIC ####[address] [place] [address] UA Spec Grav <=1.005 Abnormal 1.015-1.025 [facility] Comment on above: Performed By: #### U A, UAMIC ####[address] [place] [address] UA Specimen Type Clean Catch Normal [facility] Comment on above: Performed By: #### U A, UAMIC ####[address] [place], [place] [address] UA Urobilinogen 0.2 E.U./dL Normal 0.2-1.0 [facility] Comment on above: Performed By: #### U A, UAMIC ####[address] [place] [address] Urobilinogen (U) [Mass/Vol] Negative Normal Negative [facility] Comment on above: Performed By: #### U A, UAMIC ####[address] [place], [place] [address] UAMICon 01-16-2025 UA Bacteria Trace Abnormal Negative [facility] Comment on above: Performed By: #### U A, UAMIC ####[address] [place] [address] UA RBC Rare Normal 0-2 [facility] Comment on above: Performed By: #### U A, UAMIC ####[address] [place] [address] UA Squam Epithelial Rare Normal 0-20 [facility] Comment on above: Performed By: #### U Mickey UAMIC ####[address] [place], [place] [address] UA WBC 3-5 Normal 0-5 [facility] Comment on above: Performed By: #### U A UAMIC ####[address] [place], [place] [address] .Auto Diffon 01-15-2025 Basophil, Absolute 0.1 10 3/mcL Normal 0.0-0.3 [facility] Comment on above: Performed By: #### T AGUILAR, CBC, MDW, BMP, ADIFF, GFR, ANEU ####[address] [place], [place] [address] Basophils/100 WBC (Bld) 0.8 % Normal 0.0-2.5 [facility] Comment on above: Performed By: #### T AGUILAR, CBC, MDW, BMP, ADIFF, GFR, ANEU ####[address] [place], [place] [address] Eosinophil, Absolute 0.6 10 3/mcL Normal 0.0-0.7 [facility] Comment on above: Performed By: #### T AGUILAR, CBC, MDW, BMP, ADIFF, GFR, ANEU ####[address] [place], [place] [address] Eosinophils/100 WBC (Bld) 5.4 % Normal 0.0-6.0 [facility] Comment on above: Performed By: #### T AGUILAR, CBC, MDW, BMP, ADIFF, GFR, ANEU ####[address] [place], [place] [address] Lymphocyte, Absolute 3.6 10 3/mcL Normal 0.9-4.3 [facility] Comment on above: Performed By: #### T ABBEHS, CBC, MDW, BMP, ADIFF, GFR, ANEU ####[address] [place], [place] [address] Lymphocytes/100 WBC (Bld) 34.1 % Normal 20.0-40.0 [facility] Comment on above: Performed By: #### T AGUILAR, CBC, MDW, BMP, ADIFF, GFR, ANEU ####[address] [place], [place] [address] Monocyte, Absolute 0.8 10 3/mcL Normal 0.1-1.4 [facility] Comment on above: Performed By: #### T AGUILAR, CBC, MDW, BMP, ADIFF, GFR, ANEU ####[address] [place], [place] [address] Monocytes/100 WBC (Bld) 7.2 % Normal 2.0-13.0 [facility] Comment on above: Performed By: #### T AGUILAR, CBC, MDW, BMP, ADIFF, GFR, ANEU ####[address] [place], [place] [address] Neutrophils/100 WBC (Bld) 52.5 % Normal 50.0-75.0 [facility] Comment on above: Performed By: #### T AGUILAR, CBC, MDW, BMP, ADIFF, GFR, ANEU ####[address] [place], [place] [address] .GFRon 01-15-2025 Estimated Glomerular Filtration Rate 85 ml/min/1.73sqm Normal [facility] Comment on above: Result Comment: Stages of [...] CBC, MDW, BMP, ADIFF, GFR, ANEU ####[address] [place], [place] [address] .MDWon 01-15-2025 Monocyte Distribution Width 17.99 Normal 0.00-20.00 [facility] Comment on above: Result Comment: For ED adult patients suspected of sepsis, MDW<=20.0 does not rule out sepsis or risk of sepsis Performed By: #### T AGUILAR, CBC, MDW, BMP, ADIFF, GFR, ANEU ####[facility] [place], [place] [address] .NEUABSon 01-15-2025 Neutrophil, Absolute 5.6 10 3/mcL Normal 2.3-8.1 [facility] Comment on above: Performed By: #### T AGUILAR, CBC, MDW, BMP, ADIFF, GFR, ANEU ####[place] [address] [place], [place] [address] BMPon 01-15-2025 Calcium [Mass/Vol] 9.2 mg/dL Normal 8.4-10.2 [facility] Comment on above: Performed By: #### T AGUILAR, CBC, MDW, BMP, ADIFF, GFR, ANEU ####[place] [address] [place] [address] BUN/Creatinine Ratio 18 ratio Normal 7-27 [facility] Comment on above: Performed By: #### T AGUILAR, CBC, MDW, BMP, ADIFF, GFR, ANEU ####[place] [address] [place], [place] [address] Chloride [Moles/Vol] 98 mmol/L Normal 98-107 [facility] Comment on above: Performed By: #### T AGUILAR, CBC, MDW, BMP, ADIFF, GFR, ANEU ####[place] [address] [place], [place] [address] CO2 [Moles/Vol] 25 mmol/L Normal 22-29 [facility] Comment on above: Performed By: #### T AGUILAR, CBC, MDW, BMP, ADIFF, GFR, ANEU ####[place] [address] [place] [id number] Creatinine [Mass/Vol] 0.83 mg/dL Normal 0.51-0.95 [facility] Comment on above: Performed By: #### T AGUILAR, CBC, MDW, BMP, ADIFF, GFR, ANEU ####[address] [place], [place] [address] Electrolyte Balance 4.0 mEq/L Normal 4.0-15.0 [facility] Comment on above: Performed By: #### T AGUILAR, CBC, MDW, BMP, ADIFF, GFR, ANEU ####[address] [place], [place] [address] Glucose [Mass/Vol] 350 mg/dL High 70-105 [facility] Comment on above: Performed By: #### T AGUILAR, CBC, MDW, BMP, ADIFF, GFR, ANEU ####[address] [place], [place] [address] Potassium [Moles/Vol] 3.2 mmol/L Low 3.5-5.1 [facility] Comment on above: Performed By: #### T AGUILAR, CBC, MDW, BMP, ADIFF, GFR, ANEU ####[address] [place], [place] [address] Sodium [Moles/Vol] 127 mmol/L Low 136-145 [facility] Comment on above: Performed By: #### T AGUILAR, CBC, MDW, BMP, ADIFF, GFR, ANEU ####[address] [place], [place] [address] Urea nitrogen [Mass/Vol] 15 mg/dL Normal 7-18 [facility] Comment on above: Performed By: #### T AGUILAR, CBC, MDW, BMP, ADIFF, GFR, ANEU ####[address] [place], [place] [address] CBCon 01-15-2025 Erythrocyte distribution width (RBC) [Ratio] 13.2 % Normal 11.5-15.5 [facility] Comment on above: Performed By: #### T AGUILAR, CBC, MDW, BMP, ADIFF, GFR, ANEU ####[address] [place], [place] [address] Hematocrit (Bld) [Volume fraction] 39.8 % Normal 34.0-46.0 [facility] Comment on above: Performed By: #### T AGUILAR, CBC, MDW, BMP, ADIFF, GFR, ANEU ####[address] [place], [place] [address] Hgb 13.6 G/dL Normal 12.0-16.0 [facility] Comment on above: Performed By: #### T AGUILAR, CBC, MDW, BMP, ADIFF, GFR, ANEU ####[address] [place], [place] [address] MCH (RBC) [Entitic mass] 31.0 pg Normal 27.0-33.0 [facility] Comment on above: Performed By: #### T AGUILAR, CBC, MDW, BMP, ADIFF, GFR, ANEU ####[address] [place], [place] [address] MCHC 34.2 G/dL Normal 32.0-36.0 [facility] Comment on above: Performed By: #### T AGUILAR, CBC, MDW, BMP, ADIFF, GFR, ANEU ####[address] [place] [address] MCV (RBC) [Entitic vol] 90.7 fL Normal 80.0-99.0 [facility] Comment on above: Performed By: #### T AGUILAR, CBC, MDW, BMP, ADIFF, GFR, ANEU ####[address] [place] [id number] Platelet 192 10 3/mcL Normal 150-450 [facility] Comment on above: Performed By: #### T AGUILAR, CBC, MDW, BMP, ADIFF, GFR, ANEU ####[address] [place], [place] [address] Platelet mean volume (Bld) [Entitic vol] 9.1 fL Normal 6.6-10.5 [facility] Comment on above: Performed By: #### T AGUILAR, CBC, MDW, BMP, ADIFF, GFR, ANEU ####[address] [place], [place] [address] RBC 4.39 10 6/mcL Normal 4.10-5.30 [facility] Comment on above: Performed By: #### T AGUILAR, CBC, MDW, BMP, ADIFF, GFR, ANEU ####[address] [place], [place] [address] WBC 10.7 10 3/mcL Normal 4.5-10.8 [facility] Comment on above: Performed By: #### T AGUILAR, CBC, MDW, BMP, ADIFF, GFR, ANEU ####[address] [place], [place] [address] LABORATORYOrdered By: SYSTEM SYSTEM on 01-15-2025 Basophils [...] Sensitivity Troponin I 6 ng/L Normal 0-51 [facility] Comment on above: Result Comment: High Sensitive Troponin I Reference Ranges: Female: 0-51 ng/L Male: 0-76 ng/L Testing performed on Dimension EXL using a homogeneous sandwich chemiluminescent immunoassay based on Principle Power technology. Performed By: #### T ROPHS, CBC, MDW, BMP, ADIFF, GFR, ANEU ####[address] [address] XR CHEST 1 VIEWon 01-15-2025 XR CHEST [...] 01/15/2025 11:52:44 PM Ordering Provider: THERON STOKES [facility] ED MED ADMINISTRATION DETAIL on 10-28-2024 ED MED ADMINISTRATION DETAIL [employer] Medication Administration Record [address] [address] [id number] 10/27/2024 Patient: KARLIE GOVEA Sex: Female : [...] Charli Lloyd R.N. Scanned 1 of 1 [facility] ED NURSES CLINICAL NOTEon ED NURSES CLINICAL NOTE Nurse Narrative Nurse Clinical Narrative [address] [address] [id number] 10/27/2024 Patient: KARLIE GOVEA Sex: Female : 1975 Age: 49y Primary Insurance: [employer] OUTPATIENT Policy Number: [id number] Group Number: [id number] Subscriber: Other Secondary Insurance: [facility] Policy Number: [id number] Group Number: [id number] Subscriber: Other Disposition: Discharge to Home Disposition [...] R.N. Problems: Cancer. Breast -- 22:34 10/27/24 JELLY Ryan R.N. Diabetes Mellitus -- 22:36 10/27/24 [...] within normal limits. -- 23:00 10/27/24 JELLY Lloyd R.N. NURSING PROGRESS NOTES 22:10/27/24. Patient ID band checked. Instructions provided to collect clean catch urine and patient verbalized understanding. Clean catch urine collected with return of yellow-colored urine; samp (more content not included)... Normal [facility] ED ORDER SHEET (CPOE ONLY)on 10-28-2024 ED ORDER SHEET (CPOE ONLY) Order Sheet Order Sheet [address] [address] [id number] 10/27/2024 Patient: KARLIE GOVEA Sex: Female : [...] (10/27/2024 23:58 EST)] 2 of 2 Normal [facility] ED PHYSICIAN CLINICAL REPORT on 10-28-2024 ED PHYSICIAN CLINICAL REPORT Narrative Physician Clinical Narrative [address] [address] [id number] 10/27/2024 Patient: KARLIE GOVEA Sex: Female : 1975 Age: 49y Primary Insurance: [employer] OUTPATIENT Policy Number: [id number] Group Number: [id number] Subscriber: Other Secondary Insurance: [facility] OUT[facility]IENT Policy Number: [id number] Group Number: [id number] Subscriber: Other Measurements Wt: 102.1 kg, Ht/Moncho: [...] Final NORMAL EST NORMAL: 10/27/2024 23:25 [place] 1.030 Final 1.010-1.030 EST NORMAL: 10/27/2024 23:25 [...] No hematuria (more content not included)... Normal [facility] ED SUPER BILLon 10-28-2024 ED [place] [address] [place] [address] [id number] 10/27/2024 Patient: KARLIE GOVEA Sex: Female : 1975 Age: 49y Item Professional Category Description Facility Code Code Quantity Fee Total Nurse/E/M EMERGENCY 828913 1 $0.00 $0.00 DEPARTMENT VISIT MODERATE SEVERITY (51977-57) Grand Total $0.00 Providers Waylon Maddox M.D. Chief Complaint DYSURIA. Principal Diagnosis Dysuria. Probable acute cystitis. No hematuria present. 1 of 2 [facility] ICD-10 Codes R30.0: Dysuria 2 of 2 Normal [facility] ED VISIT SUMMARYon ED VISIT SUMMARY Visit Overview Visit Overview [place] [address] [place] [address] [id number] 10/27/2024 [id number] Sex: Female : 1975 Age: 49y 10/28/2024 [...] NO HEMATURIA PRESENT 3 of 3 Normal [facility] ED VITALS FLOW SHEETon 10-28 ED VITALS FLOW SHEET Vitals [place] [address] [id number] 10/27/2024 Patient: KARLIE GOVEA Sex: Female : 1975 Age: 49y Measurements Wt: 102.1 kg, Ht/Moncho: 69.0 in, BMI: 33.23 Measured Time BP MAP HR RR O2Sat ETCO2 Temp Pain GCS RTS 22:41 10/27/2024 151/91 111 88 16 97% RA 97.6 F 8 1 of 1 Normal [facility] URINALYSISon 10-27-2024 Bilirubin Ql (U) Negative Normal NORMAL: NEGATIVE [facility] Comment on above: Performed By: #### 2 22548 #### [facility],[address] [place] [address] Clarity (U) clear Normal NORMAL: CLEAR [facility] Comment on above: Performed By: #### 2 97281 #### [facility],[address] [place] [address] Color (U) shama Normal NORMAL: YELLOW [facility] Comment on above: Performed By: #### 2 69578 #### [facility],[address] [place] [address] Glucose Ql (U) NORM Normal NORMAL: NORMAL [facility] Comment on above: Performed By: #### 2 51474 #### [facility],[address] [place] [address] Hemoglobin Ql (U) Negative Normal NORMAL: NEGATIVE [facility] Comment on above: Performed By: #### 2 21118 #### [facility],[address] [place] [address] Ketone Negative Normal NORMAL: NEGATIVE [facility] Comment on above: Performed By: #### 2 91012 #### [facility],[address] [place] [address] Leukocytes Negative Normal NORMAL: NEGATIVE [facility] Comment on above: Performed By: #### 2 28913 #### [facility],[address] [place] [address] Nitrite Ql (U) Negative Normal NORMAL: NEGATIVE [facility] Comment on above: Performed By: #### 2 85332 #### [facility],[address] [place] [address]322 pH (U) 5 [pH] Normal NORMAL: 5.0-8.0 [facility] Comment on above: Performed By: #### 2 31590 #### [facility],[address] [place] [address] 16879 Protein Ql (U) 100 Abnormal NORMAL: NEGATIVE [facility] Comment on above: Performed By: #### 2 44756 #### [facility],[address] [place] [address] 40275 Sp [place] 1.030 Normal NORMAL: 1.010-1.030 [facility] Comment on above: Performed By: #### 2 53069 #### [facility],[address] [place] [address]2225 Specimen Type R Normal [facility] Comment on above: Performed By: #### 2 13846 #### [facility],[address] [place] [address] Urinalysis dipstick W Reflex Microscopic panel (U) NOT INDICATED Normal [facility] Comment on above: Performed By: #### 2 76768 #### [facility],[address] [place] [address] Urobilinog NORM Normal NORMAL: NORMAL [facility] Comment on above: Performed By: #### 2 70485 #### [facility],[address] [place] [address] .Auto Diffon 08-27-2024 Basophil, Absolute 0.1 10 3/mcL Normal 0.0-0.2 [facility] Comment on above: Performed By: #### C BC, GFR, ANEU, BMP, MDW, VBG, ADIFF #### [address] [address] Basophils/100 WBC (Bld) 0.7 % Normal 0.0-2.5 [facility] Comment on above: Performed By: #### C BC, GFR, ANEU, BMP, MDW, VBG, ADIFF #### [address] [address] Eosinophil, Absolute 0.7 10 3/mcL Normal 0.0-0.7 [facility] Comment on above: Performed By: #### C BC, GFR, ANEU, BMP, MDW, VBG, ADIFF #### [address] [address] Eosinophils/100 WBC (Bld) 7.8 % High 0.0-7.0 [facility] Comment on above: Performed By: #### C BC, GFR, ANEU, BMP, MDW, VBG, ADIFF #### [address] [address] Lymphocyte, Absolute 2.8 10 3/mcL Normal 0.9-4.3 [facility] Comment on above: Performed By: #### C BC, GFR, ANEU, BMP, MDW, VBG, ADIFF #### [address] [address] Lymphocytes/100 WBC (Bld) 29.7 % Normal 20.0-40.0 [facility] Comment on above: Performed By: #### C BC, GFR, ANEU, BMP, MDW, VBG, ADIFF #### [address] [address] Monocyte, Absolute 0.5 10 3/mcL Normal 0.1-1.4 [facility] Comment on above: Performed By: #### C BC, GFR, ANEU, BMP, MDW, VBG, ADIFF #### [address] [address] Monocytes/100 WBC (Bld) 5.2 % Normal 2.0-13.0 [facility] Comment on above: Performed By: #### C BC, GFR, ANEU, BMP, MDW, VBG, ADIFF #### [address] [address] Neutrophils/100 WBC (Bld) 56.6 % Normal 50.0-75.0 [facility] Comment on above: Performed By: #### C BC, GFR, ANEU, BMP, MDW, VBG, ADIFF #### [address] [address] .GFRon 08-27-2024 GFR 76 ml/min/1.73sqm Normal [facility] Comment on above: Result Comment: GFR Population [...] BC, GFR, ANEU, BMP, MDW, VBG, ADIFF ####[place] [address] [place], [place] [address] GFR Non- 63 ml/min/1.73sqm Normal [facility] Comment on above: Result Comment: GFR Population [...] BC, GFR, ANEU, BMP, MDW, VBG, ADIFF ####[place] [address] [place], [place] [address] .MDWon 08-27-2024 Monocyte Distribution Width 21.57 High 0.00-20.00 [facility] Comment on above: Result Comment: For adults in ED, MDW>20.0 may be associated with a higher risk of sepsis during the first 12hrs of hospital admission Performed By: #### C BC, GFR, ANEU, BMP, MDW, VBG, ADIFF #### [address] [address] .NEUABSon 08-27-2024 Neutrophil, Absolute 5.3 10 3/mcL Normal 2.3-8.1 [facility] Comment on above: Performed By: #### C BC, GFR, ANEU, BMP, MDW, VBG, ADIFF #### [place] [address] [place], [place] [address] BMPon 08-27-2024 BUN/Creatinine Ratio 15 ratio Normal 7-27 [facility] Comment on above: Performed By: #### C BC, GFR, ANEU, BMP, MDW, VBG, ADIFF ####[address] [place], [place] [address] Calcium [Mass/Vol] 8.9 mg/dL Normal 8.4-10.2 [facility] Comment on above: Performed By: #### C BC, GFR, ANEU, BMP, MDW, VBG, ADIFF ####[facility] [place], [place] [address] Chloride [Moles/Vol] 100 mmol/L Normal 98-107 [facility] Comment on above: Performed By: #### C BC, GFR, ANEU, BMP, MDW, VBG, ADIFF ####[address] [place], [place] [address] CO2 [Moles/Vol] 28 mmol/L Normal 22-29 [facility] Comment on above: Performed By: #### C BC, GFR, ANEU, BMP, MDW, VBG, ADIFF ####[address] [place], [place] [address] Creatinine [Mass/Vol] 0.94 mg/dL Normal 0.55-1.02 [facility] Comment on above: Result Comment: Test ing performed on Siemens Dimension EXL analyzer using a modified kinetic Jessica technique. Performed By: #### C BC, GFR, ANEU, BMP, MDW, VBG, ADIFF ####[address] [place], [place] [address] Electrolyte Balance 8.0 mEq/L Normal 4.0-15.0 [facility] Comment on above: Performed By: #### C BC, GFR, ANEU, BMP, MDW, VBG, ADIFF ####[address] [place], [place] [address] Glucose [Mass/Vol] 321 mg/dL High 70-105 [facility] Comment on above: Performed By: #### C BC, GFR, ANEU, BMP, MDW, VBG, ADIFF ####[address] [place], [place] [address] Potassium [Moles/Vol] 4.3 mmol/L Normal 3.5-5.1 [facility] Comment on above: Performed By: #### C BC, GFR, ANEU, BMP, MDW, VBG, ADIFF ####[address] [address] Sodium [Moles/Vol] 136 mmol/L Normal 136-145 [facility] Comment on above: Performed By: #### C BC, GFR, ANEU, BMP, MDW, VBG, ADIFF ####[address] [address] Urea nitrogen [Mass/Vol] 14 mg/dL Normal 7-18 [facility] Comment on above: Performed By: #### C BC, GFR, ANEU, BMP, MDW, VBG, ADIFF ####[address] [address] CBCon 08-27-2024 Erythrocyte distribution width (RBC) [Ratio] 13.3 % Normal 11.5-15.5 [facility] Comment on above: Performed By: #### C BC, GFR, ANEU, BMP, MDW, VBG, ADIFF #### [address] [address] Hematocrit (Bld) [Volume fraction] 37.7 % Normal 34.0-46.0 [facility] Comment on above: Performed By: #### C BC, GFR, ANEU, BMP, MDW, VBG, ADIFF #### [address] [address] Hgb 12.7 G/dL Normal 12.0-16.0 [facility] Comment on above: Performed By: #### C BC, GFR, ANEU, BMP, MDW, VBG, ADIFF #### [address] [address] MCH (RBC) [Entitic mass] 30.8 pg Normal 27.0-33.0 [facility] Comment on above: Performed By: #### C BC, GFR, ANEU, BMP, MDW, VBG, ADIFF #### [address] [address] MCHC 33.7 G/dL Normal 32.0-36.0 [facility] Comment on above: Performed By: #### C BC, GFR, ANEU, BMP, MDW, VBG, ADIFF #### [address] [address] MCV (RBC) [Entitic vol] 91.5 fL Normal 80.0-99.0 [facility] Comment on above: Performed By: #### C BC, GFR, ANEU, BMP, MDW, VBG, ADIFF #### [address] [address] Platelet 245 10 3/mcL Normal 150-450 [facility] Comment on above: Performed By: #### C BC, GFR, ANEU, BMP, MDW, VBG, ADIFF #### [address] [address] Platelet mean volume (Bld) [Entitic vol] 9.7 fL Normal 6.6-10.5 [facility] Comment on above: Performed By: #### C BC, GFR, ANEU, BMP, MDW, VBG, ADIFF #### [address] [address] RBC 4.12 10 6/mcL Normal 4.10-5.30 [facility] Comment on above: Performed By: #### C BC, GFR, ANEU, BMP, MDW, VBG, ADIFF #### [address] [address] WBC 9.4 10 3/mcL Normal 4.5-10.8 [facility] Comment on above: Performed By: #### C BC, GFR, ANEU, BMP, MDW, VBG, ADIFF #### [address] [address] LABORATORYOrdered By: Kieran mccauley on 08-27-2024 Appearance [...] above: Interpretive Data: T esting performed on Sendio Dimension EXL analyzer using a modified kinetic [...] 347 mg/dL High 70 - 110 mg/dL [facility] Comment on above: Result Comment: per squad, 518 per pt before she called squad UAon 08-27-2024 Color (U) Yellow Normal [facility] Comment on above: Performed By: #### U A ####[address] [place], [place] [address] Glucose (U) [Mass/Vol] 500 mg/dL Abnormal Negative [facility] Comment on above: Performed By: #### U A ####[address] [place], [place] [address] Ketones Ql (U) Negative Normal Negative [facility] Comment on above: Performed By: #### U A ####[address] [place], [place] [address] UA Appear Clear Normal Clear [facility] Comment on above: Performed By: #### U A ####[address] [place], [place] [address] UA Blood Negative Normal Negative [facility] Comment on above: Performed By: #### U A ####[address] [place] [address] UA Leuk Est Negative Normal Negative [facility] Comment on above: Performed By: #### U A ####[address] [place] [address] UA Nitrite Negative Normal Negative [facility] Comment on above: Performed By: #### U A ####[address] [place] [address] UA pH 5.5 Normal 5.0 - 8.0 [facility] Comment on above: Performed By: #### U A ####[address] [place] [address] UA Protein Trace Normal Negative [facility] Comment on above: Performed By: #### U A ####[address] [place] [address] UA Spec Grav >=1.030 Abnormal 1.015-1.025 [facility] Comment on above: Performed By: #### U A ####[address] [place] [address] UA Specimen Type Clean Catch Normal [facility] Comment on above: Performed By: #### U A ####[place] [address] UA Urobilinogen 0.2 E.U./dL Normal 0.2-1.0 [facility] Comment on above: Performed By: #### U A ####[address] [place] [address] Urobilinogen (U) [Mass/Vol] Negative Normal Negative [facility] Comment on above: Performed By: #### U A ####[address] [place] [address] VBGon 08-27-2024 BE Venous -1.4 mmol/L Normal -3.0-3.0 [facility] Comment on above: Performed By: #### C BC, GFR, ANEU, BMP, MDW, VBG, ADIFF ####[address] [place] [id number] CO2 [Moles/Vol] 23.0 mmol/L Normal 22.0-32.0 [facility] Comment on above: Performed By: #### C BC, GFR, ANEU, BMP, MDW, VBG, ADIFF ####[address] [place], [place] [address] HCO3 (Bld) [Moles/Vol] 22.0 mmol/L Normal 21.0-30.0 [facility] Comment on above: Performed By: #### C BC, GFR, ANEU, BMP, MDW, VBG, ADIFF ####[address] [place], [place] [address] Oxygen saturation in Blood 96.4 % High 70.0-75.0 [facility] Comment on above: Performed By: #### C BC, GFR, ANEU, BMP, MDW, VBG, ADIFF ####[address] [place], [place] [address] pCO2 Eitan 33.0 mmHg Low 41.0-51.0 [facility] Comment on above: Performed By: #### C BC, GFR, ANEU, BMP, MDW, VBG, ADIFF ####[address] [place], [place] [address] pH Venous 7.441 Normal 7.380-7.460 [facility] Comment on above: Performed By: #### C BC, GFR, ANEU, BMP, MDW, VBG, ADIFF ####[address] [place], [place] [address] pO2 Eitan 81.2 mmHg High 35.0-40.0 [facility] Comment on above: Performed By: #### C BC, GFR, ANEU, BMP, MDW, VBG, ADIFF ####[address] [place], [place] [address] CBC W Auto Differential pane l (Bld)on 05-29-2024 Basophils (Bld) [#/Vol] 0.10 10*3/uL Normal <0.11 [facility] Comment on above: Order Comment: Speci men Type: BLOOD SPECIMEN Ordering Facility: [facility] Address: [address] [place] [address] Performed By: #### L [id number], 76790-6, 84149-5, 39767-1 #### [facility] CLIA [id number] [address] [place] [address] [place] Basophils/100 WBC (Bld) 0.8 % [facility] Comment on above: Order Comment: Speci men Type: BLOOD SPECIMEN Ordering Facility: [facility] Address: [address] [place] [address] Performed By: #### L [id number], 95416-2, 62969-8, 19377-1 #### [facility] CLIA [id number] [address] [place] [address] [place] Differential cell count method Nom (Bld) Auto Normal [facility] Comment on above: Order Comment: Speci men Type: BLOOD SPECIMEN Ordering Facility: [facility] Address: [address] [place] [address] Performed By: #### L [id number], 63880-0, 59083-0, 64451-9 #### [facility] CLIA [id number] [address] [place] [address] [place] Eosinophils (Bld) [#/Vol] 0.70 10*3/uL High <0.46 [facility] Comment on above: Order Comment: Speci men Type: BLOOD SPECIMEN Ordering Facility: [facility] Address: [address] [place] [address] Performed By: #### L [id number], 24642-7, 89258-9, 54287-7 #### [facility] CLIA [id number] [address] [place] [address] [place] Eosinophils/100 WBC (Bld) 5.8 % [facility] Comment on above: Order Comment: Speci men Type: BLOOD SPECIMEN Ordering Facility: [facility] Address: [address] [place] [address] Performed By: #### L [id number], 91206-1, 49717-5, 76436-3 #### [facility] CLIA [id number] [address] [place] [address] [place] Erythrocyte distribution width (RBC) [Ratio] 11.7 % Normal 11.5-15.0 [facility] Comment on above: Order Comment: Speci men Type: BLOOD SPECIMEN Ordering Facility: [facility] Address: [address] [place] [address] Performed By: #### L [id number], 19126-6, 50971-9, 40018-5 #### [facility] CLIA [id number] [address] [place] [address] [place] Hematocrit (Bld) [Volume fraction] 41.7 % Normal 36.0-46.0 [facility] Comment on above: Order Comment: Speci men Type: BLOOD SPECIMEN Ordering Facility: [facility] Address: [address] [place] [address] Performed By: #### L [id number], 68644-1, 15326-2, #### [facility] CLIA [id number] [address] [place] [address] [place] Hemoglobin (Bld) [Mass/Vol] 14.3 g/dL Normal 11.5-15.5 [facility] Comment on above: Order Comment: Speci men Type: BLOOD SPECIMEN Ordering Facility: [facility] Address: [address] [place] [address] Performed By: #### L [id number], 58166-9, 47808-6, #### [facility] CLIA [id number] [address] [place] [address] [place] Immature granulocytes (Bld) [#/Vol] 0.06 10*3/uL Normal <0.10 [facility] Comment on above: Order Comment: Speci men Type: BLOOD SPECIMEN Ordering Facility: [facility] Address: [address] [place] [address] Performed By: #### L [id number], 92885-7, 66664-1, 23215-3 #### [facility] CLIA [id number] [address] [place] [address] [place] Immature granulocytes/100 WBC (Bld) 0.5 % Normal [facility] Comment on above: Order Comment: Speci men Type: BLOOD SPECIMEN Ordering Facility: [facility] Address: [address] [place] [address] Performed By: #### L [id number], 71030-1, 77382-6, 63944-5 #### [facility] CLIA [id number] [address] [place] [address] [place] Lymphocytes (Bld) [#/Vol] 2.95 10*3/uL Normal 1.00-4.00 [facility] Comment on above: Order Comment: Speci men Type: BLOOD SPECIMEN Ordering Facility: [facility] Address: [address] [place] [address] Performed By: #### L [id number], 82029-1, 34152-0, 33875-6 #### [facility] CLIA [id number] [address] [place] [address] [place] Lymphocytes/100 WBC (Bld) 24.4 % Normal [facility] Comment on above: Order Comment: Speci men Type: BLOOD SPECIMEN Ordering Facility: [facility] Address: [address] [place] [address] Performed By: #### L [id number], 59103-6, 09777-4, 39375-7 #### [facility] CLIA [id number] [address] [place] [address] [place] MCH (RBC) [Entitic mass] 31.0 pg Normal 26.0-34.0 [facility] Comment on above: Order Comment: Speci men Type: BLOOD SPECIMEN Ordering Facility: [facility] Address: [address] [place] [address] Performed By: #### L [id number], 28026-1, 88624-0, 48871-3 #### [facility] CLIA [id number] [address] [place] [address] [place] MCHC (RBC) [Mass/Vol] 34.3 g/dL Normal 30.5-36.0 [facility] Comment on above: Order Comment: Speci men Type: BLOOD SPECIMEN Ordering Facility: [facility] Address: [address] [place] [address] Performed By: #### L [id number], 15300-6, 22516-0, 75685-6 #### [facility] CLIA [id number] [address] [place] [address] [place] MCV (RBC) [Entitic vol] 90.3 fL Normal 80.0-100.0 [facility] Comment on above: Order Comment: Speci men Type: BLOOD SPECIMEN Ordering Facility: [facility] Address: [address] [place] [address] Performed By: #### L [id number], , 61819-3, #### [facility] CLIA [id number] [address] [place] [address] [place] Monocytes (Bld) [#/Vol] 0.68 10*3/uL Normal <0.87 [facility] Comment on above: Order Comment: Speci men Type: BLOOD SPECIMEN Ordering Facility: [facility] Address: [address] [place] [address] Performed By: #### L [id number], , 95030-5, #### [facility] CLIA [id number] [address] [place] [address] [place] Monocytes/100 WBC (Bld) 5.6 % Normal [facility] Comment on above: Order Comment: Speci men Type: BLOOD SPECIMEN Ordering Facility: [facility] Address: [address] [place] [address] Performed By: #### L [id number], , 07522-1, 39876-9 #### [facility] CLIA [id number] [address] [place] [address] [place] Neutrophils (Bld) [#/Vol] 7.62 10*3/uL High 1.45-7.50 [facility] Comment on above: Order Comment: Speci men Type: BLOOD SPECIMEN Ordering Facility: [facility] Address: [address] [place] [address] Performed By: #### L [id number], 99414-7, 64167-0, 02334-5 #### [facility] CLIA [id number] [address] [place] [address] [place] Neutrophils/100 WBC (Bld) 62.9 % Normal [facility] Comment on above: Order Comment: Speci men Type: BLOOD SPECIMEN Ordering Facility: [facility] Address: [address] [place] [address] Performed By: #### L [id number], 74707-7, 66341-6, 58734-3 #### [facility] CLIA [id number] [address] [place] [address] [place] Nucleated RBC (Bld) [#/Vol] 10*3/uL Normal <0.01 [facility] Comment on above: Order Comment: Speci men Type: BLOOD SPECIMEN Ordering Facility: [facility] Address: [address] [place] [address] Performed By: #### L [id number], 85282-0, 85033-4, 02710-7 #### [facility] CLIA [id number] [address] [place] [address] [place] Nucleated RBC/100 WBC (Bld) [Ratio] 0.0 /100 WBC Normal [facility] Comment on above: Order Comment: Speci men Type: BLOOD SPECIMEN Ordering Facility: [facility] Address: [address] [place] [address] Performed By: #### L [id number], 95007-4, 37764-6, 94904-5 #### [facility] CLIA [id number] [address] [place] [address] [place] Platelet mean volume (Bld) [Entitic vol] 10.2 fL Normal 9.0-12.7 [facility] Comment on above: Order Comment: Speci men Type: BLOOD SPECIMEN Ordering Facility: [facility] Address: [address] [place] [address] Performed By: #### L [id number], 57651-9, 97101-8, 19342-1 #### [facility] CLIA [id number] [address] [place], [place] [address] [place] Platelets (Bld) [#/Vol] 250 10*3/uL Normal 150-400 [facility] Comment on above: Order Comment: Speci men Type: BLOOD SPECIMEN Ordering Facility: [facility] Address: [address] [place] [address] Performed By: #### L [id number], 36678-2, 70256-5, 23553-5 #### [facility] CLIA [id number] [address] [place] [address] [place] RBC (Bld) [#/Vol] 4.62 10*6/uL Normal 3.90-5.20 [facility] Comment on above: Order Comment: Speci men Type: BLOOD SPECIMEN Ordering Facility: [facility] Address: [address] [place] [address] Performed By: #### L [id number], 38715-9, 09053-1, 53402-6 #### [facility] CLIA [id number] [address] [place], [place] [address] [place] WBC (Bld) [#/Vol] 12.11 10*3/uL High 3.70-11.00 [facility] Comment on above: Order Comment: Speci men Type: BLOOD SPECIMEN Ordering Facility: [facility] Address: [address] [place] [address] Performed By: #### L [id number], 53553-5, 42875-0, 99525-1 #### [facility] CLIA [id number] [address] [place], [place] [address] [place] CT BRAIN WO IVCONon 05-29-[address] BRAIN WO IVCON * * *Final Report* * * DATE OF EXAM: May 29 2024 3:36PM [facility] 0504 - CT BRAIN WO IVCON / [...] Unremarkable. IMPRESSION: No acute intracranial process identified. Scaffold Worker: ALBINO Transcribe Date/Time: May 29 2024 4:47P Dictated by : HARPER PADILLA MD This examination was interpreted and the report reviewed and electronically signed by: HARPER PADILLA MD on May 29 2024 4:48PM EST [id number] N Normal [facility] Comprehensive metabolic 2000 panelon 05-29-2024 Albumin [Mass/Vol] 4.5 g/dL Normal 3.9-4.9 [facility] Comment on above: Order Comment: Hue rizzo Type: BLOOD SPECIMEN Ordering Facility: [facility] Address: [address] [place] [address] Performed By: #### L [id number], 17912-4, 45046-1, 37827-9 #### [facility] CLIA [id number] [address] [place] [address] [place] ALP [Catalytic activity/Vol] 109 U/L Normal 34-123 [facility] Comment on above: Order Comment: Ajayi so Type: BLOOD SPECIMEN Ordering Facility: [facility] Address: [address] [place] [address] Performed By: #### L [id number], 05985-3, 60597-2, 56034-7 #### [facility] CLIA [id number] [address] [place] [address] [place] ALT [Catalytic activity/Vol] 29 U/L Normal 7-38 [facility] Comment on above: Order Comment: Speci men Type: BLOOD SPECIMEN Ordering Facility: [facility] Address: [address] [place] [address] Performed By: #### L [id number], 60613-2, 93846-8, 35257-2 #### [facility] CLIA [id number] [address] [place] [address] [place] Anion gap [Moles/Vol] 14 mmol/L Normal 8-15 [facility] Comment on above: Order Comment: Speci men Type: BLOOD SPECIMEN Ordering Facility: [facility] Address: [address] [place] [address] Performed By: #### L [id number], 04896-9, 45467-6, 53045-2 #### [facility] CLIA [id number] [address] [place] [address] [place] AST [Catalytic activity/Vol] 29 U/L Normal 13-35 [facility] Comment on above: Order Comment: Speci men Type: BLOOD SPECIMEN Ordering Facility: [facility] Address: [address] [place] [address] Performed By: #### L [id number], 65088-3, 46590-6, 72525-4 #### [facility] CLIA [id number] [address] [place] [address] [place] Bilirubin [Mass/Vol] 0.4 mg/dL Normal 0.2-1.3 [facility] Comment on above: Order Comment: Speci men Type: BLOOD SPECIMEN Ordering Facility: [facility] Address: [address] [place] [address] Performed By: #### L [id number], 84469-8, 97903-2, 95082-8 #### [facility] CLIA [id number] [address] [place] [address] [place] Calcium [Mass/Vol] 10.0 mg/dL Normal 8.5-10.2 [facility] Comment on above: Order Comment: Speci men Type: BLOOD SPECIMEN Ordering Facility: [facility] Address: [address] [place] [address] Performed By: #### L [id number], 42238-0, 30006-0, 73736-9 #### [facility] CLIA [id number] [address] [place] [address] [place] Chloride [Moles/Vol] 96 mmol/L Low 98-107 [facility] Comment on above: Order Comment: Speci men Type: BLOOD SPECIMEN Ordering Facility: [facility] Address: [address] [place] [address] Performed By: #### L [id number], 03726-3, 65694-7, 10608-6 #### [facility] CLIA [id number] [address] [place] [address] [place] CO2 [Moles/Vol] 25 mmol/L Normal 22-30 [facility] Comment on above: Order Comment: Speci men Type: BLOOD SPECIMEN Ordering Facility: [facility] Address: [address] [place] [address] Performed By: #### L [id number], 67052-5, 78044-6, 36742-0 #### [facility] CLIA [id number] [address] [place] [address] [place] Creatinine [Mass/Vol] 0.87 mg/dL Normal 0.58-0.96 [facility] Comment on above: Order Comment: Speci men Type: BLOOD SPECIMEN Ordering Facility: [facility] Address: [address] [place] [address] Performed By: #### L [id number], 71024-6, 10988-6, 89857-4 #### [facility] CLIA [id number] [address] [place] [address] [place] Creatinine and Glomerular filtration rate.predicted panel (S/P/Bld) 81 mL/min/1.73m??? Normal >=60 [facility] Comment on above: Order Comment: Speci men Type: BLOOD SPECIMEN Ordering Facility: [facility] Address: [address] [place] [address] Result Comment: Payton mated Glomerular Filtration Rate [...] reflect actual GFR. Performed By: #### L [id number], 81006-4, 63365-3, 87211-4 #### [facility] CLIA [id number] [address] [place] [address] [place] Glucose [Mass/Vol] 302 mg/dL High 74-99 [facility] Comment on above: Order Comment: Hue rizzo Type: BLOOD SPECIMEN Ordering Facility: [facility] Address: [address] [place] [address] Result Comment: The [place] [employer] Association (ADA) provides guidance for cutoff [...] Standards of Medical Care in Diabetes 2016, [place] [employer]. Diabetes Care. 2016.39(Suppl 1). Performed By: #### L [id number], 12592-3, 20101-5, 43275-9 #### [facility] CLIA [id number] [address] [place] [address] [place] Potassium [Moles/Vol] 4.3 mmol/L Normal 3.7-5.1 [facility] Comment on above: Order Comment: Hue [facility] Type: BLOOD SPECIMEN Ordering Facility: [facility] Address: [address] [place] [address] Performed By: #### L [id number], 50080-9, 95959-5, 71233-1 #### [facility] CLIA [id number] [address] [place], [place] [address] [place] Protein [Mass/Vol] 7.8 g/dL Normal 6.3-8.0 [facility] Comment on above: Order Comment: Speci men Type: BLOOD SPECIMEN Ordering Facility: [facility] Address: [address] [place], [place] [address] Performed By: #### L [id number], 68494-2, 45096-5, 76869-1 #### [facility] CLIA [id number] [address] [place] [address] [place] Sodium [Moles/Vol] 135 mmol/L Low 136-144 [facility] Comment on above: Order Comment: Speci men Type: BLOOD SPECIMEN Ordering Facility: [facility] Address: [address] [place] [address] Performed By: #### L [id number], 59459-1, 79014-6, 31539-0 #### [facility] CLIA [id number] [address] [place] [address] [place] Urea nitrogen [Mass/Vol] 9 mg/dL Normal 7- [facility] Comment on above: Order Comment: Speci men Type: BLOOD SPECIMEN Ordering Facility: [facility] Address: [address] [place] [address] Performed By: #### L [id number], 19836-2, 10979-5, 80530-2 #### [facility] CLIA [id number] [address] [place] [address] [place] ECG COMPLETEon 05-29-2024 ECG COMPLETE Ventricular Rate : 103 BPM Atrial Rate : 103 BPM P-R Interval : 150 ms QRS Duration : 84 ms Q-T Interval : 340 ms QTC Calculation(Bazett) : 445 ms Calculated P [place] : 39 degrees Calculated R [place] : 58 degrees Calculated T [place] : 42 degrees Sinus tachycardia Otherwise normal ECG When compared with ECG of 29-May-2024 13:36, No significant change was found Confirmed by GLADIS CUELLO MD ([id number]) on 06/02/2024 8:11:42 AM NAME : KARLIE GOVEA PID : [id number] : 1975 Gender : Female Race : ORD : [id number] Procedure Date : May 29 2024 13:47:46 Edit Date : Jun 02 2024 08:11:44 Diagnosis: Sinus tachycardia Otherwise normal ECG When compared with ECG of 29-May-2024 13:36, No significant change was found Confirmed by GLADIS CUELLO MD ([id number]) on 06/02/2024 8:11:42 AM Test Reason : HCS Location : 3 : ED ED Overread By : GLADIS CUELLO MD Edited By : GLADIS CUELLO MD Referred By : , Acquired by : [facility] ECG COMPLETE Ventricular Rate : 118 BPM Atrial Rate : 118 BPM P-R Interval : 154 ms QRS Duration : 86 ms Q-T Interval : 326 ms QTC Calculation(Bazett) : 456 ms Calculated P [place] : 50 degrees Calculated R [place] : 57 degrees Calculated T [place] : 38 degrees Sinus tachycardia Otherwise normal ECG When compared with ECG of 27-May-2024 16:12, No significant change was found Confirmed by GLADIS CUELLO MD ([id number]) on 06/02/2024 8:11:50 AM NAME : KARLIE GOVEA PID : [id number] : 1975 Gender : Female Race : ORD : [id number] Procedure Date : May 29 2024 13:36:49 Edit Date : Jun 02 2024 08:11:54 Diagnosis: Sinus tachycardia Otherwise normal ECG When compared with ECG of 27-May-2024 16:12, No significant change was found Confirmed by GLADIS CUELLO MD ([id number]) on 06/02/2024 8:11:50 AM Test Reason : HCS Location : 3 : ED ED Overread By : GLADIS CUELLO MD Edited By : GLADIS CUELLO MD Referred By : , Acquired by : [facility] ED NOTEon 05-29-2024 ED NOTE HNO ID: [id number] Author: WINSTON NAYLOR RN Service: ? Author Type: Registered Nurse Type: ED Notes Filed: 05/29/2024 14:59 Note Text: [facility] ED NOTE HNO ID: [id number] Author: NIKKI MENENDEZ RN Service: ? Author [...] it will go away. Primary rn notified [facility] ED PROV NOTEon 05-29-2024 ED PROV NOTE HNO ID: [id number] Author: NORBERT WHITE MD Service: ? Author [...] MUSCLES AXILLARY LYMPH NODES 2011 bilateral - Tyrrell RPR 1ST INGUN HRNA AGE 5 YRS/> [...] include adulteration/sp (more content not included)... Normal [facility] Fibrin D-dimer FEU (PPP) [Ma ss/Vol]on 05-29-2024 Fibrin D-dimer DDU IA (Bld) [Mass/Vol] 215 ng/mL DDU Normal <=230 [facility] Comment on above: Order Comment: Speci men Type: BLOOD SPECIMEN Ordering Facility: [facility] Address: [address] [place] [address] Performed By: #### L [id number], 56633-5, 61943-0, 71194-5 #### [facility] CLIA [id number] [address] [place] [address] [place] HIGH SENSITIVITY TROPONIN T (INITIAL)on 05-29-2024 Troponin T.cardiac High sensitivity method [Mass/Vol] 11 ng/L Normal <12 [facility] Comment on above: Order Comment: Speci men Type: BLOOD SPECIMEN Ordering Facility: [facility] Address: [address] [place] [address] Performed By: #### L [id number], 95514-5, 38456-9, 95933-4 #### [facility] CLIA [id number] [address] [place] [address] [place] HIGH SENSITIVITY TROPONIN T (SECOND)on 05-29-2024 Troponin T.cardiac High sensitivity method [Mass/Vol] 8 ng/L Normal <12 [facility] Comment on above: Order Comment: Speci men Type: BLOOD SPECIMEN Ordering Facility: [facility] Address: [address] [place] [address] Performed By: #### L [id number], 47340-9, 71189-4, 98010-4 #### [facility] CLIA [id number] [address] [place] [address] [place] HIGH SENSITIVITY TROPONIN T (THIRD) 3 HRS AFTER INITIALon 05-29-2024 Troponin T.cardiac High sensitivity method [Mass/Vol] 9 ng/L Normal <12 [facility] Comment on above: Order Comment: Speci men Type: BLOOD SPECIMEN Ordering Facility: [facility] Address: [address] [place] [address] Performed By: #### L [id number], 77834-2, 13036-2, 13661-8 #### [facility] CLIA [id number] [address] [place] [address] [place] Magnesium SerPl-mCncon 05-29 Magnesium [Mass/Vol] 2.0 mg/dL Normal 1.7-2.3 [facility] Comment on above: Order Comment: Speci men Type: BLOOD SPECIMEN Ordering Facility: [facility] Address: [address] [place] [address] Performed By: #### L [id number], 53666-4, 45329-0, 72848-2 #### [facility] CLIA [id number] [address] [place] [address] [place] NT-proBNP SerPl-mCncon 05-29 Natriuretic peptide.B prohormone N-Terminal [Mass/Vol] <36 Normal <125 [facility] Comment on above: Order Comment: Speci men Type: BLOOD SPECIMEN Ordering Facility: [facility] Address: [address] [place], [place] [address] Performed By: #### L [id number], 25430-5, 43149-1, 84767-6 #### [facility] CLIA [id number] [address] [place] [address] [place] TOXICOLOGY SCREEN, ROUTINE U RINEon 05-29-2024 Amphetamines Confirm (U) [Mass/Vol] Negative Normal Negative [facility] Comment on above: Order Comment: Speci men Type: BLOOD SPECIMEN Ordering Facility: [facility] Address: [address] [place] [address] Result Comment: Cuto ff threshold at 1000 ng/mL. Performed By: #### L [id number], 61314-6, 14283-9, 74560-5 #### [facility] CLIA [id number] [address] [place] [address] [place] BARBITURATES, URINE Negative Normal Negative [facility] Comment on above: Order Comment: Speci men Type: BLOOD SPECIMEN Ordering Facility: [facility] Address: [address] [place] [address] Result Comment: Cuto ff threshold at 200 ng/mL. Performed By: #### L [id number], 31492-2, 27258-0, 27970-6 #### [facility] CLIA [id number] [address] [place] [address] [place] BENZODIAZEPINES, UR Positive Abnormal Negative [facility] Comment on above: Order Comment: Speci men Type: BLOOD SPECIMEN Ordering Facility: [facility] Address: [address] [place] [address] Result Comment: Cuto ff threshold at 200 ng/mL. Performed By: #### L [id number], 22390-1, 01867-2, 76318-4 #### [facility] CLIA [id number] [address] [place] [address] [place] Cannabinoids Screen Ql (U) Positive Abnormal Negative [facility] Comment on above: Order Comment: Speci men Type: BLOOD SPECIMEN Ordering Facility: [facility] Address: [address] [place] [address] Result Comment: Cuto ff threshold at 50 ng/mL. Performed By: #### L [id number], 55092-2, 87397-6, 18787-2 #### [facility] CLIA [id number] [address] [place] [address] [place] Cocaine Ql (U) Negative Normal Negative [facility] Comment on above: Order Comment: Speci men Type: BLOOD SPECIMEN Ordering Facility: [facility] Address: [address] [place] [address] Result Comment: Cuto ff threshold at 300 ng/mL. Performed By: #### L [id number], 76021-2, 18345-6, 95555-6 #### [facility] CLIA [id number] [address] [place] [address] [place] Opiates Screen Ql (U) Positive Abnormal Negative [facility] Comment on above: Order Comment: Speci men Type: BLOOD SPECIMEN Ordering Facility: [facility] Address: [address] [place] [address] Result Comment: Cuto ff threshold at 300 ng/mL. Performed By: #### L [id number], 45314-8, 40257-5, 66531-4 #### [facility] CLIA [id number] [address] [place] [address] [place] oxyCODONE cutoff Screen (U) [Mass/Vol] Negative Normal Negative [facility] Comment on above: Order Comment: Speci men Type: BLOOD SPECIMEN Ordering Facility: [facility] Address: [address] [place] [address] Result Comment: Cuto ff threshold at 100 ng/mL. Performed By: #### L [id number], 36848-9, 45531-0, 32001-8 #### [facility] CLIA [id number] [address] [place] [address] [place] Phencyclidine Ql (U) Negative Normal Negative [facility] Comment on above: Order Comment: Speci men Type: BLOOD SPECIMEN Ordering Facility: [facility] Address: [address] [place] [address] Result Comment: Cuto ff threshold at 25 ng/mL. Performed By: #### L [id number], 80938-8, 29189-4, 74384-9 #### [facility] CLIA [id number] [address] [place] [address] [place] TSH SerPl-aCncon 05-29-2024 TSH Qn 2.210 m[IU]/L Normal 0.270-4.200 [facility] Comment on above: Order Comment: Speci men Type: BLOOD SPECIMEN Ordering Facility: [facility] Address: [address] [place] [address] Result Comment: If t he patient is , TSH reference range varies by gestational period: First Trimester (weeks 9-12): 0.180-2.990 mIU/L Second Trimester: 0.110-3.980 mIU/L Third Trimester: 0.480-4.710 mIU/L Mendel Pedraza et al. A Practical Approach for the Verifications and Determination of Site- and Trimester-Specific Reference Intervals for Thyroid Function tests in . Thyroid, 2019:29:3:412-420. Kenny Paniagua, et al. 2017 Guidelines of the [place] Thyroid Association for the Diagnosis and Management of Thyroid Disease during and the . Thyroid, 2017:27:3:315-389. Performed By: #### L [id number], 14973-0, 51437-3, 40397-6 #### [facility] CLIA [id number] [address] [place] [address] [place] XR CHEST 1V [...] cardiomediastinal silhouette. Other: . IMPRESSION: Bibasilar atelectasis. Scaffold Worker: ALBINO Transcribe Date/Time: May 29 2024 3:04P Dictated by : ROSEMARIE GARCÍA MD This examination was interpreted and the report reviewed and electronically signed by: ROSEMARIE GRACÍA MD on May 29 2024 3:05PM EST [id number] N [facility] CBC W Auto Differential pane l (Bld)on 05-27-2024 Basophils (Bld) [#/Vol] 0.13 10*3/uL High <0.11 [facility] Comment on above: Order Comment: Speci men Type: BLOOD SPECIMEN Ordering Facility: [facility] Address: [address] [place] [address] Performed By: #### L [id number], 22606-8, 55250-5, 18604-8 #### [facility] CLIA [id number] [address] [place] [address] [place] Basophils/100 WBC (Bld) 1.0 % Normal [facility] Comment on above: Order Comment: Speci men Type: BLOOD SPECIMEN Ordering Facility: [facility] Address: [address] [place] [address] Performed By: #### L [id number], 89996-6, 22972-8, 62618-5 #### [facility] CLIA [id number] [address] [place] [address] [place] Differential cell count method Nom (Bld) Auto [facility] Comment on above: Order Comment: Speci men Type: BLOOD SPECIMEN Ordering Facility: [facility] Address: [address] [place] [address] Performed By: #### L [id number], 96026-9, 13973-0, 19207-3 #### [facility] CLIA [id number] [address] [place] [address] [place] Eosinophils (Bld) [#/Vol] 1.06 10*3/uL High <0.46 [facility] Comment on above: Order Comment: Speci men Type: BLOOD SPECIMEN Ordering Facility: [facility] Address: [address] [place] [address] Performed By: #### L [id number], 14776-1, 80343-8, 39786-9 #### [facility] CLIA [id number] [address] [place] [address] [place] Eosinophils/100 WBC (Bld) 8.2 % Normal [facility] Comment on above: Order Comment: Speci men Type: BLOOD SPECIMEN Ordering Facility: [facility] Address: [address] [place] [address] Performed By: #### L [id number], 33323-8, 92207-2, 52010-0 #### [facility] CLIA [id number] [address] [place] [address] [place] Erythrocyte distribution width (RBC) [Ratio] 11.7 % Normal 11.5-15.0 [facility] Comment on above: Order Comment: Speci men Type: BLOOD SPECIMEN Ordering Facility: [facility] Address: [address] [place] [address] Performed By: #### L [id number], 79525-5, 71618-6, 58682-4 #### [facility] CLIA [id number] [address] [place] [address] [place] Hematocrit (Bld) [Volume fraction] 41.1 % Normal 36.0-46.0 [facility] Comment on above: Order Comment: Speci men Type: BLOOD SPECIMEN Ordering Facility: [facility] Address: [address] [place] [address] Performed By: #### L [id number], 23683-5, 42341-6, 45729-0 #### [facility] CLIA [id number] [address] [place] [address] [place] Hemoglobin (Bld) [Mass/Vol] 14.3 g/dL Normal 11.5-15.5 [facility] Comment on above: Order Comment: Speci men Type: BLOOD SPECIMEN Ordering Facility: [facility] Address: [address] [place] [address] Performed By: #### L [id number], 09275-1, 19788-5, 02861-7 #### [facility] CLIA [id number] [address] [place] [address] [place] Immature granulocytes (Bld) [#/Vol] 0.07 10*3/uL Normal <0.10 [facility] Comment on above: Order Comment: Speci men Type: BLOOD SPECIMEN Ordering Facility: [facility] Address: [address] [place] [address] Performed By: #### L [id number], 01108-0, 57339-1, 04474-3 #### [facility] CLIA [id number] [address] [place] [address] [place] Immature granulocytes/100 WBC (Bld) 0.5 % Normal [facility] Comment on above: Order Comment: Speci men Type: BLOOD SPECIMEN Ordering Facility: [facility] Address: [address] [place] [address] Performed By: #### L [id number], 62994-0, 24830-6, 37741-8 #### [facility] CLIA [id number] [address] [place] [address] [place] Lymphocytes (Bld) [#/Vol] 3.59 10*3/uL Normal 1.00-4.00 [facility] Comment on above: Order Comment: Speci men Type: BLOOD SPECIMEN Ordering Facility: [facility] Address: [address] [place] [address] Performed By: #### L [id number], 88663-5, 58380-3, 21304-9 #### [facility] CLIA [id number] [address] [place] [address] [place] Lymphocytes/100 WBC (Bld) 27.7 % Normal [facility] Comment on above: Order Comment: Speci men Type: BLOOD SPECIMEN Ordering Facility: [facility] Address: [address] [place] [address] Performed By: #### L [id number], 63710-1, 28883-8, 91195-9 #### [facility] CLIA [id number] [address] [place] [address] [place] MCH (RBC) [Entitic mass] 31.2 pg Normal 26.0-34.0 [facility] Comment on above: Order Comment: Speci men Type: BLOOD SPECIMEN Ordering Facility: [facility] Address: [address] [place] [address] Performed By: #### L [id number], 32829-5, 66236-5, #### [facility] CLIA [id number] [address] [place] [address] [place] MCHC (RBC) [Mass/Vol] 34.8 g/dL Normal 30.5-36.0 [facility] Comment on above: Order Comment: Speci men Type: BLOOD SPECIMEN Ordering Facility: [facility] Address: [address] [place] [address] Performed By: #### L [id number], , 29276-0, #### [facility] CLIA [id number] [address] [place] [address] [place] MCV (RBC) [Entitic vol] 89.5 fL Normal 80.0-100.0 [facility] Comment on above: Order Comment: Speci men Type: BLOOD SPECIMEN Ordering Facility: [facility] Address: [address] [place] [address] Performed By: #### L [id number], , 16057-1, #### [facility] CLIA [id number] [address] [place] [address] Monocytes (Bld) [#/Vol] 0.63 10*3/uL Normal <0.87 [facility] Comment on above: Order Comment: Speci men Type: BLOOD SPECIMEN Ordering Facility: [facility] Address: [address] [place] [address] Performed By: #### L [id number], 36737-6, 00767-8, #### [facility] CLIA [id number] [address] [place] [address] [place] Monocytes/100 WBC (Bld) 4.9 % Normal [facility] Comment on above: Order Comment: Speci men Type: BLOOD SPECIMEN Ordering Facility: [facility] Address: [address] [place] [address] Performed By: #### L [id number], 90041-5, 09229-0, 99822-1 #### [facility] CLIA [id number] [address] [place] [address] [place] Neutrophils (Bld) [#/Vol] 7.47 10*3/uL Normal 1.45-7.50 [facility] Comment on above: Order Comment: Speci men Type: BLOOD SPECIMEN Ordering Facility: [facility] Address: [address] [place] [address] Performed By: #### L [id number], 90613-9, 82318-5, 22646-3 #### [facility] CLIA [id number] [address] [place] [address] [place] Neutrophils/100 WBC (Bld) 57.7 % Normal [facility] Comment on above: Order Comment: Speci men Type: BLOOD SPECIMEN Ordering Facility: [facility] Address: [address] [place] [address] Performed By: #### L [id number], 14837-1, 49946-8, 49293-6 #### [facility] CLIA [id number] [address] [place] [address] [place] Nucleated RBC (Bld) [#/Vol] 10*3/uL Normal <0.01 [facility] Comment on above: Order Comment: Speci men Type: BLOOD SPECIMEN Ordering Facility: [facility] Address: [address] [place] [address] Performed By: #### L [id number], 49334-4, 16250-0, 74000-4 #### [facility] CLIA [id number] [address] [place] [address] [place] Nucleated RBC/100 WBC (Bld) [Ratio] 0.0 /100 WBC Normal [facility] Comment on above: Order Comment: Speci men Type: BLOOD SPECIMEN Ordering Facility: [facility] Address: [address] [place] [address] Performed By: #### L [id number], 01727-8, 05814-8, 62976-3 #### [facility] CLIA [id number] [address] [place] [address] [place] Platelet mean volume (Bld) [Entitic vol] 10.5 fL Normal 9.0-12.7 [facility] Comment on above: Order Comment: Speci men Type: BLOOD SPECIMEN Ordering Facility: [facility] Address: [address] [place] [address] Performed By: #### L [id number], 45154-3, 70244-5, 71570-3 #### [facility] CLIA [id number] [address] [place] [address] [place] Platelets (Bld) [#/Vol] 294 10*3/uL Normal 150-400 [facility] Comment on above: Order Comment: Speci men Type: BLOOD SPECIMEN Ordering Facility: [facility] Address: [address] [place] [address] Performed By: #### L [id number], 80692-9, 21037-2, 06441-6 #### [facility] CLIA [id number] [address] [place] [address] [place] RBC (Bld) [#/Vol] 4.59 10*6/uL Normal 3.90-5.20 [facility] Comment on above: Order Comment: Speci men Type: BLOOD SPECIMEN Ordering Facility: [facility] Address: [address] [place] [address] Performed By: #### L [id number], 43914-7, 36672-6, 88018-2 #### [facility] CLIA [id number] [address] [place] [address] [place] WBC (Bld) [#/Vol] 12.95 10*3/uL High 3.70-11.00 [facility] Comment on above: Order Comment: Speci men Type: BLOOD SPECIMEN Ordering Facility: [facility] Address: [address] [place] [address] [place] [address] Performed By: #### L [id number], 18207-4, 17283-3, 00498-9 #### [facility] CLIA [id number] [address] [place] [address] [place] CT CHEST W IVCON PEon 2023 CT CHEST W IVCON PE * * *Final Report* * * DATE OF EXAM: May 27 2024 8:01PM [facility] 0540 - CT CHEST W IVCON PE [...] mild bronchitis/bronchioli tis or reactive airway process. Scaffold Worker: ALBINO Transcribe Date/Time: May 27 2024 8:33P Dictated by : ANIA TURNER MD This examination was interpreted and the report reviewed and electronically signed by: ANIA TURNER MD on May 27 2024 8:37PM EST [id number] N Normal [facility] Comprehensive metabolic 2000 panelon 05-27-2024 Albumin [Mass/Vol] 4.3 g/dL Normal 3.9-4.9 [facility] Comment on above: Order Comment: Speci men Type: BLOOD SPECIMEN Ordering Facility: [facility] Address: [address] [place] [address] Performed By: #### L [id number], 72969-5, 47000-5, 09391-3 #### [facility] CLIA [id number] [address] [place] [address] [place] ALP [Catalytic activity/Vol] 104 U/L Normal 34-123 [facility] Comment on above: Order Comment: Speci men Type: BLOOD SPECIMEN Ordering Facility: [facility] Address: [address] [place] [address] Performed By: #### L [id number], 50716-6, 80727-2, 64719-6 #### [facility] CLIA [id number] [address] [place] [address] [place] ALT [Catalytic activity/Vol] 26 U/L Normal 7-38 [facility] Comment on above: Order Comment: Speci men Type: BLOOD SPECIMEN Ordering Facility: [facility] Address: [address] [place] [address] Performed By: #### L [id number], 37550-0, 89035-6, 23423-4 #### [facility] CLIA [id number] [address] [place] [address] [place] Anion gap [Moles/Vol] 13 mmol/L Normal 8-15 [facility] Comment on above: Order Comment: Speci men Type: BLOOD SPECIMEN Ordering Facility: [facility] Address: [address] [place] [address] Performed By: #### L [id number], 17034-3, 19366-9, 54387-4 #### [facility] CLIA [id number] [address] [place] [address] [place] AST [Catalytic activity/Vol] 26 U/L Normal 13-35 [facility] Comment on above: Order Comment: Speci men Type: BLOOD SPECIMEN Ordering Facility: [facility] Address: [address] [place] [address] Performed By: #### L [id number], 75190-5, 16157-3, 67028-7 #### [facility] CLIA [id number] [address] [place] [address] [place] Bilirubin [Mass/Vol] mg/dL Low 0.2-1.3 [facility] Comment on above: Order Comment: Speci men Type: BLOOD SPECIMEN Ordering Facility: [facility] Address: [address] [place] [address] Performed By: #### L [id number], , 47336-0, 23798-4 #### [facility] CLIA [id number] [address] [place] [address] [place] Calcium [Mass/Vol] 10.0 mg/dL Normal 8.5-10.2 [facility] Comment on above: Order Comment: Speci men Type: BLOOD SPECIMEN Ordering Facility: [facility] Address: [address] [place] [address] Performed By: #### L [id number], 14235-4, 54765-1, 77036-6 #### [facility] CLIA [id number] [address] [place] [address] [place] Chloride [Moles/Vol] 100 mmol/L Normal 98-107 [facility] Comment on above: Order Comment: Speci men Type: BLOOD SPECIMEN Ordering Facility: [facility] Address: [address] [place] [address] Performed By: #### L [id number], 81112-6, 59589-2, 37337-2 #### [facility] CLIA [id number] [address] [place] [address] [place] CO2 [Moles/Vol] 23 mmol/L Normal 22-30 [facility] Comment on above: Order Comment: Hue rizzo Type: BLOOD SPECIMEN Ordering Facility: [facility] Address: [address] [place] [address] Performed By: #### L [id number], 99152-0, 02361-4, 05698-0 #### [facility] CLIA [id number] [address] [place] [address] [place] Creatinine [Mass/Vol] 0.83 mg/dL Normal 0.58-0.96 [facility] Comment on above: Order Comment: Hue rizzo Type: BLOOD SPECIMEN Ordering Facility: [facility] Address: [address] [place] [address] Performed By: #### L [id number], 73775-8, 04279-0, 34352-5 #### [facility] CLIA [id number] [address] [place] [address] [place] Creatinine and Glomerular filtration rate.predicted panel (S/P/Bld) 86 mL/min/1.73m??? Normal >=60 [facility] Comment on above: Order Comment: Hue rizzo Type: BLOOD SPECIMEN Ordering Facility: [facility] Address: [address] [place] [address] Result Comment: Payton mated Glomerular Filtration Rate [...] reflect actual GFR. Performed By: #### L [id number], 54431-8, 04933-0, 15384-9 #### [facility] CLIA [id number] [address] [place] [address] [place] Glucose [Mass/Vol] 200 mg/dL High 74-99 [facility] Comment on above: Order Comment: Hue rizzo Type: BLOOD SPECIMEN Ordering Facility: [facility] Address: [address] [address] Result Comment: The [place] [employer] Association (ADA) provides guidance for cutoff [...] Standards of Medical Care in Diabetes 2016, [place] [employer]. Diabetes Care. 2016.39(Suppl 1). Performed By: #### L [id number], 54937-1, 81111-4, 28998-6 #### [facility] CLIA [id number] [address] [place] [address] [place] Potassium [Moles/Vol] 3.9 mmol/L Normal 3.7-5.1 [facility] Comment on above: Order Comment: Speci men Type: BLOOD SPECIMEN Ordering Facility: [facility] Address: [address] [place] [address] Performed By: #### L [id number], 57931-6, 67085-6, 91482-1 #### [facility] CLIA [id number] [address] [place] [address] [place] Protein [Mass/Vol] 7.7 g/dL Normal 6.3-8.0 [facility] Comment on above: Order Comment: Speci men Type: BLOOD SPECIMEN Ordering Facility: [facility] Address: [address] [place] [address] Performed By: #### L [id number], 69336-9, 84048-0, 19258-5 #### [facility] CLIA [id number] [address] [place] [address] [place] Sodium [Moles/Vol] 136 mmol/L Normal 136-144 [facility] Comment on above: Order Comment: Speci men Type: BLOOD SPECIMEN Ordering Facility: [facility] Address: [address] [address] Performed By: #### L [id number], 44968-6, 69810-8, 04002-3 #### [facility] CLIA [id number] [address] [place] [address] [facility] Urea nitrogen [Mass/Vol] 17 mg/dL Normal 7- [facility] Comment on above: Order Comment: Speci men Type: BLOOD SPECIMEN Ordering Facility: [facility] Address: [address] [address] Performed By: #### L [id number], 07338-1, 58018-5, 78572-2 #### [facility] CLIA [id number] [address] [place] [address] [facility] ECG COMPLETEon 05-27-2024 ECG COMPLETE Ventricular Rate : 107 BPM Atrial Rate : 107 BPM P-R Interval : 146 ms QRS Duration : 88 ms Q-T Interval : 346 ms QTC Calculation(Bazett) : 461 ms Calculated P [place] : 62 degrees Calculated R [place] : 72 degrees Calculated T [place] : 50 degrees Sinus tachycardia Possible Left atrial enlargement Borderline ECG No previous ECGs available Confirmed by GLADIS CUELLO MD ([id number]) on 05/31/2024 3:24:11 PM NAME : KARLIE GOVEA PID : [id number] : 1975 Gender : Female Race : ORD : [id number] Procedure Date : May 27 2024 16:12:12 Edit Date : May 31 2024 15:24:14 Diagnosis: Sinus tachycardia Possible Left atrial enlargement Borderline ECG No previous ECGs available Confirmed by GLADIS CUELLO MD ([id number]) on 05/31/2024 3:24:11 PM Test Reason : HCS Location : 3 : ED Overread By : GLADIS CUELLO MD Edited By : GLADIS CUELLO MD Referred By : , Acquired by : [facility] ED NOTEon 05-27-2024 ED NOTE HNO ID: [id number] Author: MARINO QUIROGA RN Service: ? Author Type: Registered Nurse Type: ED Notes Filed: 05/27/2024 17:36 Note Text: Pt to ED 16 from ED lobby after triage and protocol orders. Ambulated with steady gait, Ambulated to bathroom to void, then to ED 16. 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 States increased pain to chest with ambulation/exertion. ED Physician Dr Henderson at bedside to assess pt and discuss plan of care. [facility] ED PROV NOTEon 05-27-2024 ED PROV NOTE HNO ID: [id number] Author: RADHA HENDERSON MD Service: ? 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 Said her heart rate has been up [...] MUSCLES AXILLARY LYMPH NODES 2010 bilateral - Tyrrell - RPR 1ST INGUN HRNA AGE 4 [...] - Abnormal; No (more content not included)... [facility] ED Triage Noteon 05-27-2024 ED Triage Note HNO ID: [id number] Author: SUNDAY CALLEJAS APRN.CNP Service: Emergency Medicine [...] for review (EKG) SIGNATURE: Sunday Callejas APRN.CHRISTINA [facility] Fibrin D-dimer FEU (PPP) [Ma ss/Vol]on 05-27-2024 Fibrin D-dimer DDU IA (Bld) [Mass/Vol] 234 ng/mL DDU High <=230 [facility] Comment on above: Order Comment: Speci men Type: BLOOD SPECIMEN Ordering Facility: [facility] Address: [address] [place] [address] Performed By: #### 4 8065-7 #### [facility] CLIA [id number] [address] [place] [address] [place] HIGH SENSITIVITY TROPONIN T (INITIAL)on 05-27-2024 Troponin T.cardiac High sensitivity method [Mass/Vol] 13 ng/L High <12 [facility] Comment on above: Order Comment: Speci men Type: BLOOD SPECIMEN Ordering Facility: [facility] Address: [address] [place] [address] Performed By: #### L [id number], 08437-4, 22949-2, 33980-0 #### [facility] CLIA [id number] [address] [place] [address] [place] HIGH SENSITIVITY TROPONIN T (SECOND)on 05-27-2024 Troponin T.cardiac High sensitivity method [Mass/Vol] 8 ng/L Normal <12 [facility] Comment on above: Order Comment: Speci men Type: BLOOD SPECIMEN Ordering Facility: [facility] Address: [address] [place] [address] Performed By: #### L [id number] #### [facility] CLIA [id number] [address] [place] [address] [place] HIGH SENSITIVITY TROPONIN T (THIRD) 3 HRS AFTER INITIALon 05-27-2024 Troponin T.cardiac High sensitivity method [Mass/Vol] 9 ng/L Normal <12 [facility] Comment on above: Order Comment: Speci men Type: BLOOD SPECIMEN Ordering Facility: [facility] Address: [address] [place] [address] Performed By: #### L [id number], 13400-5, 68808-5, 31954-7 #### [facility] CLIA [id number] [address] [place] [address] [place] Magnesium SerPl-mCncon 05-27 Magnesium [Mass/Vol] 1.9 mg/dL Normal 1.7-2.3 [facility] Comment on above: Order Comment: Speci men Type: BLOOD SPECIMEN Ordering Facility: [facility] Address: [address] [place] [address] Performed By: #### L [id number], 57655-0, 95050-5, 15844-7 #### [facility] CLIA [id number] [address] [place] [address] [place] NT-proBNP SerPl-mCncon 05-27 Natriuretic peptide.B prohormone N-Terminal [Mass/Vol] <36 Normal <125 [facility] Comment on above: Order Comment: Speci men Type: BLOOD SPECIMEN Ordering Facility: [facility] Address: [address] [place] [address] Performed By: #### L [id number], 51336-8, 25582-9, 72399-9 #### [facility] CLIA [id number] [address] [place] [address] [place] SEPSIS LACTATEon 05-27-2024 Lactate [Moles/Vol] 1.6 mmol/L Normal 0.0-2.0 [facility] Comment on above: Order Comment: Speci men Type: BLOOD SPECIMEN Ordering Facility: [facility] Address: [address] [place] [address] Performed By: #### L [id number], 83584-5, 70981-6, 01330-5 #### [facility] CLIA [id number] [address] [place] [address] [place] Urinalysis complete panel (U )on 05-27-2024 Bilirubin Ql (U) Negative Normal Negative [facility] Comment on above: Order Comment: Speci men Type: BLOOD SPECIMEN Ordering Facility: [facility] Address: [address] [place] [address] Performed By: #### L [id number], 41836-1, 29696-1, 48568-6 #### [facility] CLIA [id number] [address] [place] [address] [place] Clarity (Unsp spec) Clear Normal Clear [facility] Comment on above: Order Comment: Speci men Type: BLOOD SPECIMEN Ordering Facility: [facility] Address: [address] [place] [address] Performed By: #### L [id number], 54314-2, 33803-0, 40832-6 #### [facility] CLIA [id number] [address] [place] [address] [place] Color (U) Yellow Normal Yellow [facility] Comment on above: Order Comment: Speci men Type: BLOOD SPECIMEN Ordering Facility: [facility] Address: [address] [place] [address] Performed By: #### L [id number], 63067-0, 47858-6, 16854-5 #### [facility] CLIA [id number] [address] [place] [address] [place] Glucose Test strip (U) [Mass/Vol] 1+ Abnormal Negative [facility] Comment on above: Order Comment: Speci men Type: BLOOD SPECIMEN Ordering Facility: [facility] Address: [address] [place] [address] Performed By: #### L [id number], 44873-0, 19742-5, 67589-1 #### [facility] CLIA [id number] [address] [place] [address] [place] Hemoglobin Ql (U) Negative Normal Negative [facility] Comment on above: Order Comment: Speci men Type: BLOOD SPECIMEN Ordering Facility: [facility] Address: [address] [place] [address] Performed By: #### L [id number], 08178-4, 65643-9, 20644-6 #### [facility] CLIA [id number] [address] [place] [address] [place] Ketones Ql (U) Negative Normal Negative [facility] Comment on above: Order Comment: Speci men Type: BLOOD SPECIMEN Ordering Facility: [facility] Address: [address] [place] [address] Performed By: #### L [id number], 01240-2, 60563-3, 87038-5 #### [facility] CLIA [id number] [address] [place] [address] [place] Leukocyte esterase Test strip Ql (U) Negative Normal Negative [facility] Comment on above: Order Comment: Speci men Type: BLOOD SPECIMEN Ordering Facility: [facility] Address: [address] [place] [address] Performed By: #### L AD4007, 01335-2, 82553-7, 01903-5 #### [facility] CLIA [id number] [address] [place] [address] [place] Nitrite Ql (U) Negative Normal Negative [facility] Comment on above: Order Comment: Speci men Type: BLOOD SPECIMEN Ordering Facility: [facility] Address: [address] [place] [address] Performed By: #### L [id number], 97082-4, 29106-1, 99933-4 #### [facility] CLIA [id number] [address] [place] [address] [place] pH (U) 6.0 [pH] Normal 5.0-8.0 [facility] Comment on above: Order Comment: Speci men Type: BLOOD SPECIMEN Ordering Facility: [facility] Address: [address] [place] [address] Performed By: #### L [id number], , 39090-4, 32440-5 #### [facility] CLIA [id number] [address] [place] [address] [place] Protein (U) [Mass/Vol] Trace Abnormal Negative [facility] Comment on above: Order Comment: Speci men Type: BLOOD SPECIMEN Ordering Facility: [facility] Address: [address] [place] [address] Performed By: #### L [id number], 66177-6, 79735-0, 57269-0 #### [facility] CLIA [id number] [address] [place] [address] [place] RBC LM.HPF (Urine sed) [#/Area] 0-3 /HPF Normal 0-3 /HPF [facility] Comment on above: Order Comment: Speci men Type: BLOOD SPECIMEN Ordering Facility: [facility] Address: [address] [place] [address] Performed By: #### L [id number], 58106-5, 88512-6, 77074-3 #### [facility] CLIA [id number] [address] [place] [address] [place] Specific gravity (U) [Rel density] 1.025 Normal 1.005-1.030 [facility] Comment on above: Order Comment: Speci men Type: BLOOD SPECIMEN Ordering Facility: [facility] Address: [address] [place], [place] [address] Performed By: #### L [id number], 40443-5, 35590-5, 55171-7 #### [facility] CLIA [id number] [address] [place] [address] [place] Urobilinogen Ql (U) 0.2 EU/dL Normal 0.2-1.0 EU/dL [facility] Comment on above: Order Comment: Speci men Type: BLOOD SPECIMEN Ordering Facility: [facility] Address: [address] [place] [address] Performed By: #### L [id number], 83084-6, 55496-7, 37064-4 #### [facility] CLIA [id number] [address] [place] [address] [place] WBC LM.HPF (Urine sed) [#/Area] 0-5 /HPF Normal 0-5 /HPF [facility] Comment on above: Order Comment: Speci men Type: BLOOD SPECIMEN Ordering Facility: [facility] Address: [address] [place], [place] [address] Performed By: #### L [id number], 67501-0, 13018-3, 60741-5 #### [facility] CLIA [id number] [address] [place] [address] [place] XR CHEST 1V [...] normal limits. IMPRESSION: No acute cardiopulmonary process. Scaffold Worker: PSCB Transcribe Date/Time: May 27 2024 4:58P Dictated by : TREY KUMAR MD This examination was interpreted and the report reviewed and electronically signed by: TREY KUMAR MD on May 27 2024 4:59PM EST [id number] N [facility] XR SHOULDER MINIMUM 2 VIEWS RIGHTon 08-28-2023 XR SHOULDER MINIMUM 2 VIEWS RIGHT ORIGINAL EXAMINATION: TWO XRAY VIEWS OF THE RIGHT GKLYDXLM31/21/2023 7:09 pm COMPARISON: None HISTORY: ORDERING SYSTEM [...] 08/28/2023 7:50:55 PM Ordering Provider: ABI Black [facility] ([place]) XR ELBOW MINIMUM 3 VIEWS RIG HTon [...] Sign Date: 03/21/2023 6:05:27 PM Ordering Provider: [facility] ([place]) XR TOES 5TH DIGIT 3 VIEWS RI [...] 03/21/2023 6:06:06 PM Ordering Provider: CAR BONILLA [facility] ([place]) Hemoglobin A1con 03-14-2021 Glucose [Mass/Vol] 229 mg/dL Normal [facility] Comment on above: Performed By: #### H BA1C #### [facility] Routine Lab [address] [place], [place] [address] HbA1c (Bld) [Mass fraction] 9.6 % High 4.3-5.6 [facility] Comment on above: Performed By: #### H BA1C #### [facility] Routine Lab [address] [place], [place] [address] Urgent Care Visit Reporton 0 01-19-2021 Urgent Care Visit Report [facility] [place] [id number] OFFICE VISIT Date of Service: 01/19/21 MR#: [id number] Acct: [id number] Name: KARLIE GOVEA Rep #: [id number] : 1975 Provider: BOBBY sofia Age/Sex: 46/F Location: [facility] Status: Signed Intake Intake Visit Reasons: PE PHYSICAL/[facility] [address] Chief Complaint: chest pain Allergies No Known Allergies Allergy (Verified 05/21/19 08:39) [facility] Medical History (Updated 01/19/21 @ 11:58 by [...] Cosigner Signature: Date (if applicable) CC: Normal [facility] LUIS MIGUEL by IFAon 09-22-2020 LUIS MIGUEL Pattern ANANOT Normal [facility] Comment on above: Performed By: #### R F #### [facility] Routine Lab [address] [place], [place] [address] #### ANAIFS #### [facility] Immuno Assay [address] [place], [place] [address] LUIS MIGUEL Titer Normal Negative [facility] Comment on above: Result Comment: Nega tive Normal range : negatie at <1:80 serum dilution. Performed By: #### R F #### [facility] Routine Lab [address] [address] #### ANAIFS #### [facility] [address] [id number] Nuclear Ab IF (S) [Titer] Negative Normal Negative [facility] Comment on above: Performed By: #### R F #### [facility] Routine Lab [address] [address] #### ANAIFS #### [facility] [address] [address] Rheumatoid Factoron 09-22-19 21 Rheumatoid Factor <10 Normal <16 [facility] Reference Lab Comment on above: Performed By: #### R F #### [facility] [employer] Routine Lab [address] [address] #### ANAIFS #### [facility] Immuno Assay [address] [address] [facility] Patient: KARLIE GOVEA EMERGENCY DEPARTMENT PHYSICIAN REPORT Admit Date: 08/20/19 /Age: 0501/11/1975/44/F ED Physician: Jan Oleary MD Med Rec #: [id number] History Of Present Illness - General Stated [...] for migraine. Disposition: HOME/SELF CARE ROUTINE Referrals: [facility],DOCTOR [Family Provider] - Condition: Good 08/20/19 1928 [id number] CC: [facility] PHYSICIAN Normal [facility] CT ANGIOGRAM HEADon 01-21-20 CT ANGIOGRAM HEAD EXAMINATION:CT ANGIOGRAM HEAD. 01/20/2018CLINICAL HISTORY:Headache, dizziness and left-sided and subjective weakness.TECHNIQUE:Ax ial CT scans through the head was obtained without contrast administration. Following IV administration of 75 mL of Isovue-370, axial CT scans of the head were obtained. Coronal and sagittal MIP images were obtained. In addition, 3D reconstruction images were generated on a separate independent [employer] workstation. Dose reduction techniques were achieved by [...] aneurysm.IMPRESSION:N ormal CTA of the head.Workstation ID: [id number] d by: KASIE DELUCA on FriJanuary 20, 2018 11:05:46 PM EDTTranscribed by: KASIE DELUCA on FriJanuary 20, 2018 11:05:46 PM EDTFinalized by: KASIE DELUCA on FriJanuary 20, 2018 11:05:46 PM EDT Normal [facility] Comment on above: Order Comment: Reaso [...] massIllness/OtherEnco unter Type: InitialAdditional signs and symptoms: [facility] PROVIDED DIAGNOSIS CODES:R51 Acute nonintractable headache, [...] air cells are clear. Nasopharynx is normal. Lokie Engineer spaces are normal. Orbital contents appear normal. [...] or evidence of metastatic disease. No acute findings.ProRadis/Glovico tation ID: [id number] by: TO HANSEN on FriJanuary 20, 2018 8:48:18 AM EDTTranscribed by: FAN PETERS on FriJanuary 20, 2018 9:32:03 AM EDTFinalized by: TO HANSEN on FriJanuary 20, 2018 10:21:33 AM EDT [facility] Comment on above: Order Comment: Reaso [...] known risk factors.Radiology 2005; 237:395-400SZD/dbgWor kstation ID: [id number] by: SHANNEN WELLS on FriJanuary 19, 2018 9:49:50 PM EDTTranscribed by: MARINA GIORDANO on FriJanuary 19, 2018 9:57:40 PM EDTFinalized by: SHANNEN WELLS on FriJanuary 20, 2018 1:58:28 PM EDT [facility] Comment on above: Order Comment: Reaso [...] known risk factors.Radiology 2005; 237:395-400SZD/dbgWor kstation ID: [id number] by: SHANNEN WELLS on FriJanuary 19, 2018 9:49:50 PM EDTTranscribed by: MARINA GIORDANO on FriJanuary 19, 2018 9:57:40 PM EDTFinalized by: SHANNEN WELLS on FriJanuary 20, 2018 1:58:28 PM EDT Normal [facility] Comment on above: Order Comment: Reaso n for exam?:BEE, off balance, difficulty with concentration; history of breast cancerInjury/Trauma or Illness?:Illness/OtherHow long have you had these symptoms (acute/chronic)?:AcuteType of Exam?:InitialAdditional signs and symptoms?:breast ca 6 years ago Vital Signs Date Time Vital Sign Value Performing Clinician Tellyi silvano 07-16-2025 15:34-0500 Diastolic Blood Pressure Non-Invasive 82 mm[Hg] JERICHO SULTANA MD [facility] 07-16-2025 15:34-0500 Heart rate 98 /min JERICHO SULTANA MD [facility] 07-16-2025 15:34-0500 Respiratory rate 16 /min JERICHO SULTANA MD [facility] 07-16-2025 15:34-0500 Systolic Blood Pressure Non-Invasive 136 mm[Hg] JERICHO SULTANA MD [facility] 07-16-2025 14:00-0500 Blood Pressure Cuff Size JERICHO SULTANA MD [facility] 07-16-2025 14:00-0500 Blood Pressure Location JERICHO SULTANA MD [facility] 07-16-2025 14:00-0500 Blood Pressure Method JERICHO SULTANA MD [facility] 07-16-2025 14:00-0500 Body temperature 97.16 [degF] JERICHO SULTANA MD [facility] 07-16-2025 14:00-0500 Diastolic Blood Pressure Non-Invasive 79 mm[Hg] JERICHO SULTANA MD [facility] 07-16-2025 14:00-0500 Heart rate 105 /min JERICHO SULTANA MD [facility] 07-16-2025 14:00-0500 Systolic Blood Pressure Non-Invasive 145 mm[Hg] JERICHO SULTANA MD [facility] 01-16-2025 01:53-0400 Heart rate 95 /min THERON STOKES MD [facility] 01-16-2025 00:58-0400 Heart rate 98 /min THERON STOKES MD [facility] 01-16-2025 00:58-0400 Respiratory rate 20 /min THERON STOKES MD [facility] 01-16-2025 00:11-0400 Diastolic Blood Pressure Non-Invasive 72 mm[Hg] THERON STOKES MD [facility] 01-16-2025 00:11-0400 Heart rate 106 /min THERON STOKES MD [facility] 01-16-2025 00:11-0400 Respiratory rate 20 /min THERON STOKES MD [facility] 01-16-2025 00:11-0400 Systolic Blood Pressure Non-Invasive 111 mm[Hg] THERON STOKES MD [facility] 01-15-2025 23:25-0400 Body temperature 98.06 [degF] THERON STOKES MD [facility] 01-15-2025 23:25-0400 Diastolic Blood Pressure Non-Invasive 84 mm[Hg] THERON STOKES MD [facility] 01-15-2025 23:25-0400 Respiratory rate 20 /min THERON STOKES MD [facility] 01-15-2025 23:25-0400 Systolic Blood Pressure Non-Invasive 129 mm[Hg] THERON STOKES MD [facility] 08-27-2024 16:10-0500 SaO2% (BldA) [Mass fraction] 96.4 % FAUSTINO FROMMELT DO [facility] 08-27-2024 16:06-0500 Body temperature 98.96 [degF] FAUSTINO FROMMELT DO [facility] 08-27-2024 16:06-0500 Diastolic Blood Pressure Non-Invasive 77 mm[Hg] FAUSTINO FROMMELT DO [facility] 08-27-2024 16:06-0500 Heart rate 93 /min FAUSTINO FROMMELT DO [facility] 08-27-2024 16:06-0500 Respiratory rate 16 /min FAUSTINO FROMMELT DO [facility] 08-27-2024 16:06-0500 Systolic Blood Pressure Non-Invasive 116 mm[Hg] FAUSTINO FROMMELT DO [facility] 08-28-2023 18:01-0500 Body temperature 98.42 [degF] DR ABI LOPEZ MD [facility] 08-28-2023 18:01-0500 Body weight 79.[address] ABI LOPEZ MD [facility] 08-28-2023 18:01-0500 Diastolic Blood Pressure Non-Invasive 78 mm[Hg] DR ABI LOPEZ MD [facility] 08-28-2023 18:01-0500 Heart rate 88 /min DR ABI LOPEZ MD [facility] 08-28-2023 18:01-0500 Respiratory rate 20 /min DR ABI LOPEZ MD [facility] 08-28-2023 18:01-0500 Systolic Blood Pressure Non-Invasive 142 mm[Hg] DR ABI LOPEZ MD [facility] 03-21-2023 18:40-0400 Diastolic Blood Pressure Non-Invasive 84 1 CAR BONILLA MD [facility] 03-21-2023 18:40-0400 Heart rate 108 /min CAR BONILLA MD [facility] 03-21-2023 18:40-0400 Respiratory rate 22 /min CAR BONILLA MD [facility] 03-21-2023 18:40-0400 Systolic Blood Pressure Non-Invasive 126 1 CAR BONILLA MD [facility] 03-21-2023 17:22-0400 Body temperature 98.06 [degF] CAR BONILLA MD [facility] 03-21-2023 17:22-0400 Diastolic Blood Pressure Non-Invasive 87 1 CAR BONILLA MD [facility] 03-21-2023 17:22-0400 Heart rate 124 /min CAR BONILLA MD [facility] 03-21-2023 17:22-0400 Respiratory rate 24 /min CAR BONILLA MD [facility] 03-21-2023 17:22-0400 Systolic Blood Pressure Non-Invasive 129 1 CAR BONILLA MD [facility] Encounters Encounter Date Encounter Type Care Provider Facility Start: 07-16-2025 End: 07-16-2025 Emergency department patient visit JERICHO SULTANA MD [facility] Start: 05-30-2025 ambulatory CHEYENNE BARNES [facility] Start: 05-03-2025 End: 05-03-2025 Emergency department patient visit HARITHA SYLVESTER DO [facility] Start: 04-28-2025 End: 04-28-2025 ambulatory LIBBY SUAZO DO Facility:[facility] Start: 04-28-2025 End: 04-28-2025 Patient encounter procedure LIBBY SUAZO DO [facility] Start: 04-05-2025 ambulatory KATHY GAMING Facili ty:[facility] Start: 03-15-2025 End: 03-15-2025 Emergency department patient visit DR ABI LOPEZ MD [facility] Start: 03-04-2025 End: 03-04-2025 ambulatory LIBBY SUAZO DO Facility:[facility] Start: 03-04-2025 Encounter for genera l adult medical examination without abnormal findings LIBBY SUAZO DO [facility] Start: 03-04-2025 End: 03-04-2025 Patient encounter procedure LIBBY Arcelia SUAZO DO [facility] Start: 01-29-2025 End: 01-29-2025 Emergency department patient visit JERICHO Paniagua TEODORO [facility] Start: 01-15-2025 End: 01-16-2025 Emergency department patient visit THERON STOKES MD [facility] Start: 10-27-2024 End: 10-28-2024 Emergency department patient visit [facility] CAMERON [facility] [place] [facility] Start: 08-27-2024 End: 08-27-2024 Emergency department patient visit FAUSTINO DEYSISHERRIE GAVIN [facility] Start: 05-29-2024 Emergency department patient visit Facility:[id number] Start: 08-28-2023 End: 08-28-2023 Emergency department patient visit DR ABI LOPEZ MD Facility:[facility] Start: 08-28-2023 End: 08-28-2023 Emergency department patient visit DR ABI LOPEZ MD [facility] Start: 03-21-2023 End: 03-21-2023 Emergency department patient visit CAR BONILLA Facility:[facility] Start: 03-21-2023 End: 03-21-2023 Emergency department patient visit CAR BONILLA MD [facility] Start: 08-20-2019 End: 08-20-2019 Emergency department patient visit JAN OLEARY Facility:[facility] Start: 01-19-2018 End: 01-21-2018 Ambulatory GUERO Paniagua MOAIXA [facility] Start: 06-14-2015 ambulatory TRANG Sahu) [facility] Procedures Date Procedure Procedure Detail Performing Clinician Start: 10-27-2024 Urinalysis CHEYENNE MONTSE PATTERSON Comment on above: Result Comment: URIN ALYSIS Performed By: #### [id number] #### [facility],[address] [place] [id number] Cholecystectomy CAR Arevalo MD Hysterectomy CAR Silver Simple mastectomy CAR BARBOSA MD Immunizations Immunization Date Immunization Notes Care Provider Fa cili 04-18-2021 SARS-CoV-2 (COVID-19 ) [id number] vaccine THERON STOKES MD [facility] Comment on above: Result Comment: 2024: [id number] Payers Date Payer Category Payer Private Health Insurance [id number] 2025 Unknown [id number] 2023 Unknown [id number] 2023 Unknown [id number] 2023 Medicaid [id number] 2023 Private Health Insurance [id number] 2011 Medicare [id number] 1974 Unknown [id number] 2.16.8 40.1.112327.3.579.2. 1974 Unknown [id number] 2.16.8 40.1.022972.3.579.2. 1974 Unknown [id number] 2.16.8 40.1.055150.3.579.2. 1974 Unknown [id number] 2.16.8 40.1.459770.3.579.2. 1974 Unknown [id number] 2.16.8 40.1.914412.3.579.2. 1974 Unknown [id number] 2.16. 840.1.193668.3.579.2.627 1974 Unknown [id number] 2.16. 840.1.699479.3.579.2. 1974 Unknown [id number] 2.16. 840.1.861866.3.579.2. 1974 Unknown [id number] 2.16. 840.1.636323.3.579.2. 1974 Unknown [id number] 2.16. 840.1.448533.3.579.2. 1974 Unknown [id number] 2.16. 840.1.944814.3.579.2. 1974 Unknown [id number] 2.16.8 40.1.821823.3.579.2. 1974 Unknown [id number] 2.16.8 40.1.674927.3.579.2.627 Medicaid Medicare [id number] Medicare [id number] Unknown [id number] 2.16.8 40.1.046138.3.579.2.383 Social History Date Type Detail Facility Start: 03-21-2023 Tobacco smoking status Heavy t obacco smoker (finding) [facility] Sex Assigned At [facility] Start: 02-16-2014 Sex Female (finding) [facility] Start: 07-16-2025 No, per patient [facility] Functional Status Date Assessment Result Facility 07-16-2025 Functional Status [facility] 07-16-2025 Functional Status Ambulation in English, Ambulation in Room [facility] 01-16-2025 Functional Status Activity Jordan jazmynece Independent [facility] 01-15-2025 Functional Status Standard Safet y ID band on, Call device within reach, Bed in low position, Wheels locked, Upper/Half-Length side-rails up, Phone within reach, personal items within reach, Bedside Cart Locked, Visitor at bedside [facility] 08-27-2024 Functional Status Independent [facility] 08-27-2024 Functional Status Independent [facility] 08-28-2023 Functional Status Assistive Device None A [facility] 03-21-2023 Functional Status ID band on, Call device within reach, Bed in low position, Wheels locked, Bedside Cart Locked, Visitor at bedside, Safety level maintained [facility] 03-21-2023 Functional Status [facility] Mental Status Date Assessment Result Facility 07-16-2025 Mental Status Orientation Oriented x 4 [facility] 07-16-2025 Mental Status [facility] 01-16-2025 Mental Status Orientation Oriented x 4 [facility] 01-15-2025 Mental Status [facility] 08-27-2024 Mental Status Orientation Oriented x 4 [facility] 08-27-2024 Mental Status [facility] 08-28-2023 Mental Status Orientation Oriented x 4 [facility] 03-21-2023 Mental Status Orientation Oriented x 4 [facility] Clinical Notes 03-21-2023 to 07-16-2025 Note Date [...] foods again, start with small amounts of nxay-ni-vfscyx, low-fat foods. These include apple sauce, toast, [...] increase stomach acid. Don't use aspirin or wguv-ltg-oytmztr pain and fever medicines, if possible. This includes nonsteroidal anti-inflammatory drugs (NSAIDs). Lose excess weight. Finish eating at least 2 hours before you go to bed or lie down. Raise the head of your bed. [phone] [employer]. [address] [place] [address]. All rights reserved. This information is not intended as a substitute for professional medical care. Always follow your healthcare professional's instructions. Follow Up Care 07/16/2025 13:50:49 With:LIBBY SUAZO DO Address: [address] [place] [phone] When:2-4 days [facility] 07-16-2025 Emergency department Discharge summary Discharge Instructions Thank you for allowing [facility] to assist you with your healthcare needs. The following is important discharge information regarding your hospital visit. Diagnosis from Today's Visit Abdominal pain What to Do Next Instructions from Your Care Team No qualifying data available. Post Acute Orders No qualifying data available. You Need to Schedule the Following Appointments Follow Up with LIBBY SUAZO DO When:Within 2-4 days Where:[address] [place] [id number] [phone] Allergies No Known Medication Allergies misc non-codified [...] may report side effects to FDA at 8-721-SUK-9183. What other drugs will affect ondansetron? Ondansetron can cause a serious heart problem. Your risk may be higher if you also use certain other medicines for infections, asthma, heart problems, high blood pressure, depression, mental illness, cancer, malaria, or HIV. Many drugs can affect ondansetron. This includes prescription and exwf-liz-rvltppc medicines, vitamins, and herbal products. Not all [...] to ensure that the information provided by [employer]. ('PubNativetum') is accurate, up-to-date, and complete, but no guarantee is made to that effect. Drug information contained herein may be time sensitive. [employer] information has been compiled for use by healthcare practitioners and consumers in the [place] and therefore [employer] does not warrant that uses outside of the [place] are appropriate, unless specifically indicated otherwise. [employer] drug information does not endorse drugs, diagnose patients or recommend therapy. [employer] drug information is an informational resource designed [...] effective or appropriate for any given patient. [employer] does not assume any responsibility for any aspect of healthcare administered with the aid of information [employer] provides. The information contained herein is not intended to cover all possible uses, directions, precautions, warnings, drug interactions, allergic reactions, or adverse effects. If you have questions about the drugs you are taking, check with your doctor, nurse or pharmacist. Copyright 7585-7501 [employer]. Version: 17.01. Revision Date: 06/01/2024. pantoprazole (oral/injection) [...] may report side effects to FDA at 0-047-CDX-5528. What other drugs will affect pantoprazole? Tell your doctor about all your other medicines, especially: digoxin; rilpivirine-containing products; methotrexate; or a diuretic or 'water pill'. This list is not complete. Other drugs may affect pantoprazole, including prescription and sazj-pfm-tjgietj medicines, vitamins, and herbal products. Not all [...] to ensure that the information provided by [employer]. ('[employer]') is accurate, up-to-date, and complete, but no guarantee is made to that effect. Drug information contained herein may be time sensitive. [employer] information has been compiled for use by healthcare practitioners and consumers in the [place] and therefore [employer] does not warrant that uses outside of the [place] are appropriate, unless specifically indicated otherwise. [employer] drug information does not endorse drugs, diagnose patients or recommend therapy. [employer] drug information is an informational resource designed [...] effective or appropriate for any given patient. [employer] does not assume any responsibility for any aspect of healthcare administered with the aid of information [employer] provides. The information contained herein is not intended to cover all possible uses, directions, precautions, warnings, drug interactions, allergic reactions, or adverse effects. If you have questions about the drugs you are taking, check with your doctor, nurse or pharmacist. Copyright 8062-3876 [employer]. Version: 22.02. Revision Date: 07/27/2024. lansoprazole (yuliya [...] a broken bone while taking this medicine penitentiary or more than once per day. What is lansoprazole? Lansoprazole is a proton pump inhibitor that is used to treat and prevent stomach and intestinal ulcers, erosive esophagitis (damage to the esophagus from stomach acid), and other conditions involving excessive stomach acid such as Bravo-Marx syndrome. Jhzo-cxa-fmlrmtw lansoprazole (Prevacid OTC) is used to treat [...] bone mineral density (osteopenia). Do not use movi-cbo-rjcvbkh lansoprazole (Prevacid OTC) without the advice of [...] may report side effects to FDA at 1-277-XWC-5246. What other drugs will affect lansoprazole? Sucralfate can make it harder for your body to absorb lansoprazole. Wait at least 30 minutes after taking lansoprazole before you take sucralfate. Tell your doctor if you use methotrexate. Many drugs can affect lansoprazole, and some drugs should not be used at the same time. This includes prescription and dciw-hgs-scnnyoa medicines, vitamins, and herbal products. Not all [...] to ensure that the information provided by [employer]. ('Mult[employer]') is accurate, up-to-date, and complete, but no guarantee is made to that effect. Drug information contained herein may be time sensitive. Osen information has been compiled for use by healthcare practitioners and consumers in the [place] and therefore O[employer] does not warrant that uses outside of the [place] are appropriate, unless specifically indicated otherwise. [employer] drug information does not endorse drugs, diagnose patients or recommend therapy. [employer] drug information is an informational resource designed [...] effective or appropriate for any given patient. [facility] does not assume any responsibility for any aspect of healthcare administered with the aid of information [facility] provides. The information contained herein is not intended to cover all possible uses, directions, precautions, warnings, drug interactions, allergic reactions, or adverse effects. If you have questions about the drugs you are taking, check with your doctor, nurse or pharmacist. Copyright 3956-7240 [employer]. Version: 16.. Revision Date: 10/20/2020. Education Materials [...] foods again, start with small amounts of yiin-fl-jejosx, low-fat foods. These include apple sauce, toast, [...] increase stomach acid. Don't use aspirin or uyfu-wot-dqahgzm pain and fever medicines, if possible. This includes nonsteroidal anti-inflammatory drugs (NSAIDs). Lose excess weight. Finish eating at least 2 hours before you go to bed or lie down. Raise the head of your bed. 5248-9622 [employer]. [address] [place] [address], [place] [address]. All rights reserved. This information is not intended as a substitute for professional medical care. Always follow your healthcare professional's instructions. Additional Information VACCINATE! IT SAVES LIVES! Members of the community who have not yet received the COVID-19 vaccine and would like to receive it can visit one of [facility] vaccine clinics. There are many vaccine clinic locations within the [facility]. For locations and available times, please visit www.[email or web address] [email or web address] It is important to note that some COVID mobile vaccine clinics are held outdoors and may be canceled in rainy or stormy conditions. To learn more about pediatric vaccinations (ages 5-11), we invite you to visit the [facility] webpage. https://www.[employer].org/p ages/5326-Fatei-Orltpjwzydd-Freq whxyda-Zwtvx-Mypknhvwm.html To learn more about the COVID-19 vaccine, we invite you to visit the CDC website for a list of frequently asked questions. https://www.cdc.gov/coronavirus/ 2019-ncov/vaccines/faq.html [facility] Patient Portal Access Instructions: Stay connected with your healthcare team and access your personal medical information anytime with the [facility] Patient Portal. If you would like a full copy of your medical records please contact the [facility] Medical Records Department Friday through Friday between 8a.m. and 4:30p.m. Please follow the directions below to access the portal: 1.Access the email account you provided upon registration to the hospital.2.Look for an invitation email from [facility].3.Open the email and access the invitation link: Accept Invitation to [facility]4.Fill in the required rico to create your account. To access your account, visit [email or web address] or scan the QR code above. Click [...] you will allow to register on the [facility] Patient Portal for access to your information. You can also access the [employer] Patient Portal on the [employer] eder. Simply click on Health Records under Health Data and then click on the [employer] logo. HOW TO SAFELY DISPOSE OF PRESCRIPTION [...] Call your local pharmacy or go to [email or web address].K[employer] Sports/3J6Sm2v to find one close to you.3.Make use of household items: Use cat litter or old coffee grounds to dispose medications if other options are not available. Mix your drugs with these household products, seal them in an airtight container and throw it into the garbage. Call [facility]: [phone] to be sure your drugs can be [...] aware that I should contact my doctor. Patient/Ambulatory Nurse Signature: Date/Time: Relationship to Patient: Witness Name/Signature: Date/Time: [facility] 07-16-2025 Note Exam Date Time Procedure Performing Provider Status 07/16/25 3:[address] Abd/Pelvis w/ IV Contrast Only LARA GRAY DO; Auth (Verified) [id number] ORIGINAL EXAMINATION: CT OF THE ABDOMEN AND PELVIS WITH BJKRGGSM92/8/2025 2:19 pm TECHNIQUE: CT of the abdomen [...] 07/16/2025 3:40:03 PM Ordering Provider: JERICHO SULTANA [facility]11-08-2025 Note* Exam Date Time Procedure Performing Provider Status 07/16/25 2:32 PM EKG [ED AOH] - CV JERICHO SULTANA MD; Auth (Verified) ECG Final Report Sinus tachycardia Electronic Signature: JERICHO SULTANA MD 07/16/2025 16:04:59 [facility]08-27-2025 Hospital Discharge instructions Patient Education 05/03/2025 23:17:00 [...] alternate ice and heat. You may use gnxt-dlu-puteljx pain medicine to control pain, unless another [...] the urine Unexpected vaginal bleeding in women [phone] [employer]. [address] [place] [address]. All rights reserved. This information is not intended as a substitute for professional medical care. Always follow yourhealthcare professional's instructions. Follow Up Care 05/03/2025 18:57:05 With:Go to emergency room if symptoms worsen Address:Unknown When:2-4 days With:LIBBY SUAZO DO Address: [address] [place] [phone] When:2-4 days [facility] 08-26-2025 Note Discharge Instructions Thank you for allowing [facility] to assist you with your healthcare needs. [...] with LIBBY SUAZO DO When:Within 2-4 days Where:[address] [place] [phone] Allergies NKA Medications Please ask your primary [...] alternate ice and heat. You may use hsdl-ven-tozxyay pain medicine to control pain, unless another [...] the urine Unexpected vaginal bleeding in women [phone] [employer]. [address] [place] [address], [place] [address]. All rights reserved. This information is not intended as a substitute for professional medical care. Always follow yourhealthcare professional's instructions. Additional Information VACCINATE! IT SAVES LIVES! Members of the community who have not yet received the COVID-19 vaccine and would like to receive it can visit one of [facility] vaccine clinics. There are many vaccine clinic locations within the [facility]. For locations and available times, please visit www.[email or web address].[place].gov/. It is important to note that some COVID mobile vaccine clinics are held outdoors and may be canceled in rainy or stormy conditions. To learn more about pediatric vaccinations (ages 5-11), we invite you to visit the [facility] webpage. https://www.[facility].org/pages/8390-Bovid-Mgssuzxwhrx-Jjjfinnwkt-Scwaz-Qnh stions.htmlTo learn more about the COVID-19 vaccine, we invite you to visit the CDC website for a list of frequently asked questions. https://www.cdc.gov/coronavirus/2019-ncov/vaccines/faq.html [employer] Patient Portal Access Instructions: Stay connected with your healthcare team and access your personal medical information anytime with the [facility] Patient Portal. If you would like a full copy of your medical records please contact the [facility] Medical Records Department Friday through Friday between 8a.m. and 4:30p.m. Please follow the directions below to access the portal: 1.Access the email account you provided upon registration to the hospital.2.Look for an invitation email from [facility].3.Open the email and access the invitation link: Accept Invitation to [facility]4.Fill in the required rico to create your account. Sign into [email or web address] with your username and password that you [...] you will allow to register on the [facility] Patient Portal for access to your information. You can also access the [employer] Patient Portal on the [employer] eder. Simply click on Health Records under [employer] and then click on the Mirubee logo. HOW TO SAFELY DISPOSE OF PRESCRIPTION [...] Call your local pharmacy or go to [email or web address].KVZ [email or web address] to find one close to you.3.Make use of household items: Use cat litter or old coffee grounds to dispose medications if other options arenot available. Mix your drugs with these household products, seal them in an airtight container andthrow it into the garbage. Call [facility]: [phone] to be sure your drugs can be [...] aware that I should contact my doctor. Patient/Ambulatory Nurse Signature: Date/Time: Relationship to Patient: Witness Name/Signature: Date/Time: [facility]08-26-2025 Note* Exam Date Time Procedure Performing Provider Status 05/03/25 9:[address] Abd/Pelvis w/ IV Contrast Only ANIYA YOON MD; Auth (Verified) [id number] ORIGINAL EXAMINATION: CT OF THE ABDOMEN AND [...] Date: 05/03/2025 11:00:50 PM Ordering Provider: HARITHA [facility]07-08-2025 Hospital Discharge instructions Patient Education 03/15/2025 15:47:14 [...] still weak. When treating a sprain, the AirYek Mobile Walker boot should be worn whenever walking for at least 4 weeks, or as long as you continue to have ankle pain. Talk to your healthcare provider for specific advice about the treatment of your condition. Air-Stirrup and SP-Walker are trademarks of [employer]. For more information about their products, see www.BaseTrace. 9153-6994 [employer]. [address] [place] [address], [place] [address]. All rights reserved. This information is not [...] thin towel or cloth. You may use bopq-rlr-zpfxzyz pain medicine (NSAIDS or nonsteroidal anti- inflammatory [...] or is irritated You re-injure your ankle 3990-0604 [employer]. [address] [place] [address]. All rights reserved. This information is not intended as a substitute for professional medical care. Always follow yourhealthcare professional's instructions. Follow Up Care 03/15/2025 13:04:41 With:LIBBY SUAZO DO Address: [address] [place] [address] [phone] When:2-4 days [facility] 07-08-2025 Note Discharge Instructions Thank you for allowing [facility] to assist you with your healthcare needs. The following is importantdischarge information regarding your hospital visit. What to Do Next Instructions from Your Care Team Discharge Home Equipment - Ordered -- Walking boot Left, 99 month(s), 03/15/25 15:41:00 EDT Post Acute Orders No qualifying data available. You Need to Schedule the Following Appointments Follow Up with LIBBY SUAZO DO When:Within 2-4 days Where:[address] [place] [phone] Allergies NKA Medications Please ask your primary [...] still weak. When treating a sprain, the Xola Walker boot should be worn whenever walking for at least 4 weeks, or as long as you continue to have ankle pain. Talk to your healthcare provider for specific advice about the treatment of your condition. Air-Stirrup and SP-Walker are trademarks of [employer]. For more information about their products, see www.BaseTrace. 8083-7051 [employer]. [address] [place] [address]. All rights reserved. This information is not [...] thin towel or cloth. You may use axpq-nzz-uijzqrt pain medicine (NSAIDS or nonsteroidal anti- inflammatory [...] or is irritated You re-injure your ankle 2574-9552 [employer]. [address] [place] [address]. All rights reserved. This information is not intended as a substitute for professional medical care. Always follow yourhealthcare professional's instructions. Additional Information VACCINATE! IT SAVES LIVES! Members of the community who have not yet received the COVID-19 vaccine and would like to receive it can visit one of [facility] vaccine clinics. There are many vaccine clinic locations within the [facility]. For locations and available times, please visit www.gettheshot.coronavirus.[place].gov/. It is important to note that some COVID mobile vaccine clinics are held outdoors and may be canceled in rainy or stormy conditions. To learn more about pediatric vaccinations (ages 5-11), we invite you to visit the [facility] webpage. https://www.[facility].org/pages/0343-Lmmgw-Syadgsupyfz-Oxjimwqoyz-Ipqqw-Sok stions.htmlTo learn more about the COVID-19 vaccine, we invite you to visit the CDC website for a list of frequently asked questions. https://www.cdc.gov/coronavirus/2019-ncov/vaccines/faq.html [facility] Patient Portal Access Instructions: Stay connected with your healthcare team and access your personal medical information anytime with the [facility] Patient Portal. If you would like a full copy of your medical records please contact the [facility] Medical Records Department Friday through Friday between 8a.m. and 4:30p.m. Please follow the directions below to access the portal: 1.Access the email account you provided upon registration to the [facility].2.Look for an invitation email from [facility].3.Open the email and access the invitation link: Accept Invitation to [facility]4.Fill in the required rico to create your account. Sign into [email or web address] with your username and password that you [...] you will allow to register on the [facility] Patient Portal for access to your information. You can also access the [facility] Patient Portal on the [employer]. Simply click on Health Records under [employer] and then click on the Mir[employer] logo. HOW TO SAFELY DISPOSE OF PRESCRIPTION [...] Call your local pharmacy or go to http://bit.KVZ Sports/7R8Pv2k to find one close to you.3.Make use of household items: Use cat litter or old coffee grounds to dispose medications if other options arenot available. Mix your drugs with these household products, seal them in an airtight container andthrow it into the garbage. Call [facility]: [phone] to be sure your drugs can be [...] aware that I should contact my doctor. Patient/Ambulatory Nurse Signature: Date/Time: Relationship to Patient: Witness Name/Signature: Date/Time: [facility]07-08-2025 Note* Exam Date Time Procedure Performing Provider Status 03/15/25 1:58 PM XR Foot Minimum 3 Views Right MITCHELL SANCHEZ MD; Auth (Verified) [id number] ORIGINAL EXAMINATION: THREE XRAY VIEWS OF THE [...] 03/15/2025 3:52:39 PM Ordering Provider: ABI LOPEZ [facility]07-08-2025 Note* Exam Date Time Procedure Performing Provider Status 03/15/25 1:57 PM XR Hand Minimum 3 Views Left MONTY SANCHEZ MD; Auth (Verified) [id number] ORIGINAL EXAMINATION: THREE XRAY VIEWS OF THE [...] 03/15/2025 2:19:56 PM Ordering Provider: ABI LOPEZ [facility]05-11-2025 Hospital Discharge instructions Patient Education 01/16/2025 01:21:11 [...] swelling in the outer vaginal area (labia) 8439-7219 [employer]. [address] [place] [address]. All rights reserved. This information is not [...] the first few days. You may use pddg-rbi-hjdwrrn medicine, such as acetaminophen or ibuprofen, to [...] F (38 C) or as advised Seizure 8727-2384 [employer]. [address] [place] [address]. All rights reserved. This information is not intended as a substitute for professional medical care. Always follow yourhealthcare professional's instructions. Follow Up Care 01/15/2025 22:49:59 With:CLIF FLANNERY MD Address: [address] [place] [address]- When:2-4 days [facility] 05-11-2025 Note Discharge Instructions Thank you for allowing [facility] to assist you with your healthcare needs. The following is importantdischarge information regarding your hospital visit. Diagnosis from Today's Visit Otitis media UTI (urinary tract infection) What to Do Next Instructions from Your Care Team No qualifying data available. Post Acute Orders No qualifying data available. You Need to Schedule the Following Appointments Follow Up with CLIF FLANNERY MD When:Within 2-4 days Where:[address] [place] [phone]- Allergies NKA Medications Please ask your [...] in the outer vaginal area (labia) [employer]. [address] [place] [address]. All rights reserved. This information is not [...] the first few days. You may use cini-vac-squckli medicine, such as acetaminophen or ibuprofen, to [...] F (38 C) or as advised Seizure 2052-9608 [employer]. [address] [place] [address]. All rights reserved. This information is not intended as a substitute for professional medical care. Always follow yourhealthcare professional's instructions. Additional Information VACCINATE! IT SAVES LIVES! Members of the community who have not yet received the COVID-19 vaccine and would like to receive it can visit one of [facility] vaccine clinics. There are many vaccine clinic locations within the [facility]. For locations and available times, please visit www.gettheshot.coronavirus.[place].gov/. It is important to note that some COVID mobile vaccine clinics are held outdoors and may be canceled in rainy or stormy conditions. To learn more about pediatric vaccinations (ages 5-11), we invite you to visit the [facility] webpage. https://www.[employer].org/pages/6996-Bwwnr-Qxpuzhzagfu-Rtdzufwyib-Hneqi-Qhy stions.htmlTo learn more about the COVID-19 vaccine, we invite you to visit the CDC website for a list of frequently asked questions. https://www.cdc.gov/coronavirus/2019-ncov/vaccines/faq.html [facility] Patient Portal Access Instructions: Stay connected with your healthcare team and access your personal medical information anytime with the [facility] Patient Portal. If you would like a full copy of your medical records please contact the [facility] Medical Records Department Friday through Friday between 8a.m. and 4:30p.m. Please follow the directions below to access the portal: 1.Access the email account you provided upon registration to the [facility].2.Look for an invitation email from [facility].3.Open the email and access the invitation link: Accept Invitation to [facility]4.Fill in the required rico to create your account. Sign into [email or web address] with your username and password that you [...] you will allow to register on the [facility] Patient Portal for access to your information. You can also access the [employer] Patient Portal on the [employer]. Simply click on Health Records under [employer] and then click on the Mir[employer]ee logo. HOW TO SAFELY DISPOSE OF PRESCRIPTION [...] Call your local pharmacy or go to http://Emida.KVZ Sports/9D9Ah6i to find one close to you.3.Make use of household items: Use cat litter or old coffee grounds to dispose medications if other options arenot available. Mix your drugs with these household products, seal them in an airtight container andthrow it into the garbage. Call [facility]: [phone] to be sure your drugs can be [...] aware that I should contact my doctor. Patient/Ambulatory Nurse Signature: Date/Time: Relationship to Patient: Witness Name/Signature: Date/Time: [facility]05-10-2025 Note* Exam Date Time Procedure Performing Provider Status 01/15/25 11:42 PM XR Chest 1 View ARABELLA HAAS DO; [facility] (Verified) [id number] ORIGINAL EXAMINATION: ONE XRAY VIEW OF THE [...] 01/15/2025 11:52:44 PM Ordering Provider: THERON STOKES [facility]05-10-2025 Note* Exam Date Time Procedure Performing Provider Status 01/15/25 10:57 PM EKG [ED AOH] - CV THERON STOKES MD; Auth (Verified) ECG Final Report Sinus tachycardia Borderline right axis deviation Borderline T abnormalities, inferior leads Electronic Signature: THERON STOKES MD 01/15/2025 23:27:07 [facility]02-20-2025 NoteDischarge Instructions Discharge Summary [address] [address] [id number] 10/27/2024 Patient: KARLIE GOVEA Sex: Female : 1975 Age: 49y Thank you for visiting [facility]. You have been evaluated today by Waylon Maddox M.D. for the following condition(s): Principal Diagnosis Dysuria. Probable acute cystitis. No hematuria present. INSTRUCTIONS Prescription Medications: cephalexin 500 mg capsule: Take 1 capsule by mouth four times a day for 7 days, dispense 28 capsule. Refills 0. Pharmacy: [facility] - [address] [place] [address]. Follow-up: Follow up with your healthcare provider in one week. You have been given the following additional information: Bladder Infection, Female (Adult) Patient Signature 1 of 6 Discharge Instructions Facility Ambulatory Nurse Date/Time General Instructions with ExitWriter [address] [address] [phone] 10/27/2024 Patient: KARLIE GOVEA Sex: Female : 1975 Age: 49y Thank you for visiting [facility]. You have been evaluated today by Waylon Maddox M.D. for the following condition(s): Principal Diagnosis Dysuria. Probable acute cystitis. No hematuria present. INSTRUCTIONS Prescription Medications: cephalexin 500 mg capsule: Take 1 capsule by mouth four times a day for 7 days, dispense 28 capsule. Refills 0. Pharmacy: [facility] - [address] [place] [address]. Follow-up: Follow up with your healthcare provider [...] (gastrointestinal) bleeding, or a (more content not included)...[facility]12-20-2024 Hospital Discharge instructions Patient Education 08/27/2024 [...] keep having episodes of high blood sugar. 8460-4975 [employer]. [address] [place] [address]. All rights reserved. This information is not intended as a substitute for professional medical care. Always follow yourhealthcare professional's instructions. Follow Up Care 08/27/2024 16:00:33 With:CLIF FLANNERY MD Address: [address] [place] [address]- When:2-4 days [facility] 12-20-2024 Note Discharge Instructions Thank you for allowing [facility] to assist you with your healthcare needs. The following is importantdischarge information regarding your hospital visit. Diagnosis from Today's Visit Hyperglycemia What to Do Next Instructions from Your Care Team No qualifying data available. Post Acute Orders No qualifying data available. You Need to Schedule the Following Appointments Follow Up with CILF FLANNERY MD When:Within 2-4 days Where:[address] [place] [phone]- Allergies NKA Medications Please ask your primary doctor or pharmacist before taking any other medication not listed, including over the counter drugs, herbal medications, vitamins and or supplements as they may interact withyour home medications. What How Much When Why Instructions Last Dose Unchanged acetaminophen- hydrocodone (Hazleton 325- 5 mg oral tablet) 1 tab(s) [...] keep having episodes of high blood sugar. 0708-0999 [employer]. [address] [place] [address]. All rights reserved. This information is not intended as a substitute for professional medical care. Always follow yourhealthcare professional's instructions. Additional Information VACCINATE! IT SAVES LIVES! Members of the community who have not yet received the COVID-19 vaccine and would like to receive it can visit one of [facility] vaccine clinics. There are many vaccine clinic locations within the [facility]. For locations and available times, please visit www.gettheshot.coronavirus.[place].gov/. It is important to note that some COVID mobile vaccine clinics are held outdoors and may be canceled in rainy or stormy conditions. To learn more about pediatric vaccinations (ages 5-11), we invite you to visit the [facility] webpage. https://www.[facility].org/pages/2673-Lhoyr-Opxrutwmseo-Cvscmmmzca-Jjxad-Qwp stions.htmlTo learn more about the COVID-19 vaccine, we invite you to visit the CDC website for a list of frequently asked questions. https://www.cdc.gov/coronavirus/2019-ncov/vaccines/faq.html [facility] Patient Portal Access Instructions: Stay connected with your healthcare team and access your personal medical information anytime with the [facility] Patient Portal. If you would like a full copy of your medical records please contact the [facility] Medical Records Department Friday through Friday between 8a.m. and 4:30p.m. Please follow the directions below to access the portal: 1.Access the email account you provided upon registration to the [facility].2.Look for an invitation email from [facility].3.Open the email and access the invitation link: Accept Invitation to [facility].Fill in the required rico to create your account. Sign into [email or web address] with your username and password that you [...] you will allow to register on the [facility] Patient Portal for access to your information. You can also access the [facility] Patient Portal on the [employer] eder. Simply click on Health Records under [employer] and then click on the Navi logo. [...] Call your local pharmacy or go to http://bit.KVZ Sports/1L6Nz5d to find one close to you.3.Make use of household items: Use cat litter or old coffee grounds to dispose medications if other options arenot available. Mix your drugs with these household products, seal them in an airtight container andthrow it into the garbage. Call [facility]: [phone] to be sure your drugs can be [...] aware that I should contact my doctor. Patient/Ambulatory Nurse Signature: Date/Time: Relationship to Patient: Witness Name/Signature: Date/Time: [facility]09-21-2024 NoteHNO ID: [id number] Author: NAOMI LOPEZ, Marcelo Service: ? Author Type: Park Guide Type: Progress Notes Filed: 05/29/2024 15:36 Note [...] PATIENT PRESENTS WITH AN IMPLANTABLE OR ATTACHED JIG AND FIXTURE REPAIRER: No RADIOLOGY DEPARTMENT: CT; Exam(s) Completed: Brain PERIPHERAL IV DATA: Not applicable SIGNED BY: RT Moe (R)(CT) May 29, 2024 3:36 [facility] CenterNazaferg93-21-0583 NoteHNO ID: [id number] Author: CARMENZA CAMACHO RT(R) Service: Radiology Author [...] PATIENT PRESENTS WITH AN IMPLANTABLE OR ATTACHED JIG AND FIXTURE REPAIRER: No RADIOLOGY DEPARTMENT: General X-ray: Exam(s) Completed: Chest X-Ray PERIPHERAL IV DATA: Not applicable SIGNED BY: RT Pilar(R) May 29, 2024 2:06 [facility] CenterAkvhpoox38-86-1052 NoteHNO ID: [id number] Author: HIGINIO CHUNG RT(R) Service: ? Author [...] PATIENT PRESENTS WITH AN IMPLANTABLE OR ATTACHED JIG AND FIXTURE REPAIRER: No ALLERGIES: Reviewed and unchanged CONTRAST ALLERGY: [...] Govea DATE: May 27, 2024 TIME: 7:59 PMCommunity [facility] EastFanvhsei64-97-9061 NoteHNO ID: [id number] Author: RUI CHAVEZ RT(R) Service: Radiology Author Type: Park Guide Type: Progress Notes Filed: 05/27/2024 16:34 Note [...] PATIENT PRESENTS WITH AN IMPLANTABLE OR ATTACHED JIG AND FIXTURE REPAIRER: No RADIOLOGY DEPARTMENT: General X-ray: Exam(s) Completed: Chest X-Ray PERIPHERAL IV DATA: Not applicable SIGNED BY: RT Elizabeth(R) May 27, 2024 4:33 PMCommunity Hospital EastVjnlrlmf24-15-9833 Hospital Discharge instructions Patient Education 08/28/2023 19:22:42 [...] shoulder or upper arm Fever or chills [phone] [employer]. [address] [place] [address]. All rights reserved. This information is not intended as a substitute for professional medical care. Always follow yourhealthcare professional's instructions. Follow Up Care 08/28/2023 17:45:47 With:CLIF FLANNERY MD Address: [address] [place] [address] When:2-4 days [facility] 12-21-2023 Note Discharge Instructions Thank you for allowing [facility] to assist you with your healthcare needs. [...] MD When Within 2-4 days Where: [address] [facility] [phone]- Allergies NKA Medications Please ask your primary [...] needed for pain Printed Prescription Unchanged acetaminophen-hydrocodone (Hazleton 325- 5 mg oral tablet) 1 tab(s) [...] shoulder or upper arm Fever or chills 2429-5973 [employer]. [address] [place] [address], [place] [address]. All rights reserved. This information is not intended as a substitute for professional medical care. Always follow yourhealthcare professional's instructions. Additional Information VACCINATE! IT SAVES LIVES! Members of the community who have not yet received the COVID-19 vaccine and would like to receive it can visit one of [facility] vaccine clinics. There are many vaccine clinic locations within the [facility]. For locations and available times, please visit www.gettheshot.coronavirus.[place].gov/. It is important to note that some COVID mobile vaccine clinics are held outdoors and may be canceled in rainy or stormy conditions. To learn more about pediatric vaccinations (ages 5-11), we invite you to visit the [facility] webpage. https://www.[facility].org/pages/7334-Xntqm-Bcxzxsdvgre-Qrxpjjobfi-Hyrqs-Yve stions.htmlTo learn more about the COVID-19 vaccine, we invite you to visit the CDC website for a list of frequently asked questions. https://www.cdc.gov/coronavirus/2019-ncov/vaccines/faq.html [facility] [employer] Patient Portal Access Instructions: Stay connected with your healthcare team and access your personal medical information anytime with the [facility] Patient Portal. If you would like a full copy of your medical records please contact the [facility] Medical Records Department Friday through Friday between 8a.m. and 4:30p.m. Please follow the directions below to access the portal: 1.Access the email account you provided upon registration to the [facility].2.Look for an invitation email from [facility].3.Open the email and access the invitation link: Accept Invitation to [facility]4.Fill in the required rico to create your account. Sign into [email or web address] with your username and password that you [...] you will allow to register on the [facility] Patient Portal for access to your information. You can also access the [facility] Patient Portal on the [employer] eder. Simply click on Health Records under [employer] and then click on the Navi logo. [...] Call your local pharmacy or go to http://bit.KVZ Sports/7C0Hv6r to find one close to you.3.Make use of household items: Use cat litter or old coffee grounds to dispose medications if other options arenot available. Mix your drugs with these household products, seal them in an airtight container andthrow it into the garbage. Call [facility]: [phone] to be sure your drugs can be [...] aware that I should contact my doctor. Patient/Ambulatory Nurse Signature: Date/Time: Relationship to Patient: Witness Name/Signature: Date/Time: [facility]12-21-2023 Note ORIGINAL EXAMINATION: TWO XRAY VIEWS OF THE RIGHT LRJXFJRD54/21/2023 7:09 pm COMPARISON: None HISTORY: ORDERING SYSTEM [...] Sign Date: 08/28/2023 7:50:55 PM Ordering Provider: [facility]07-14-2023 Hospital Discharge instructions Patient Education 03/21/2023 18:20:06 [...] to move wrist, hand or fingers properly. 2724-8520 [employer]. [address] [place] [address]. All rights reserved. This information is not intended as a substitute for professional medical care. Always follow yourhealthcare professional's instructions. Follow Up Care 03/21/2023 17:21:07 With:CLIF FLANNERY MD Address: [address] [place] [address]- When:3-5 days [facility] 07-14-2023 Emergency department Discharge summary Discharge Instructions Thank you for allowing [facility] to assist you with your healthcare needs. [...] MD When Within 3-5 days Where: [address] [place] [address]- Allergies NKA Medications Please ask your primary doctor or pharmacist before taking any other medication not listed, including over the counter drugs, herbal medications, vitamins and or supplements as they may interact withyour home medications. What How Much When Why Instructions Last Dose New acetaminophen-hydrocodone ([place] 325- 5 mg oral tablet) 1 tab(s) [...] to move wrist, hand or fingers properly. [id number] [employer]. [address] [place] [address]. All rights reserved. This information is not intended as a substitute for professional medical care. Always follow yourhealthcare professional's instructions. Additional Information VACCINATE! IT SAVES LIVES! Members of the community who have not yet received the COVID-19 vaccine and would like to receive it can visit one of [facility] vaccine clinics. There are many vaccine clinic locations within the [facility]. For locations and available times, please visit [email or web address] It is important to note that some COVID mobile vaccine clinics are held outdoors and may be canceled in rainy or stormy conditions. To learn more about pediatric vaccinations (ages 5-11), we invite you to visit the [facility] webpage. [email or web address]/[email or web address] learn more about the COVID-19 vaccine, we invite you to visit the CDC website for a list of frequently asked questions. https://www.cdc.gov/coronavirus/2019-ncov/vaccines/faq.html [facility] Patient [facility] Access Instructions: Stay connected with your healthcare team and access your personal medical information anytime with the [facility] Patient Portal. If you would like a full copy of your medical records please contact the [facility] Medical Records Department Friday through Friday between 8a.m. and 4:30p.m. Please follow the directions below to access the portal: 1.Access the email account you provided upon registration to the [facility].2.Look for an invitation email from [facility].3.Open the email and access the invitation link: Accept Invitation to [facility]4.Fill in the required rico to create your account. Sign into [email or web address] with your username and password that you [...] you will allow to register on the [facility] Patient Portal for access to your information. You can also access the [facility] Patient Portal on the [facility]. Simply click on Health Records under HealthData and then click on the [place] logo. HOW TO SAFELY DISPOSE OF PRESCRIPTION [...] Call your local pharmacy or go to http://bit.K[employer] Sports/2Z1Ve9j to find one close to you.3.Make use of household items: Use cat litter or old coffee grounds to dispose medications if other options arenot available. Mix your drugs with these household products, seal them in an airtight container andthrow it into the garbage. Call [facility]: [phone] to be sure your drugs can be [...] aware that I should contact my doctor. Patient/Ambulatory Nurse Signature: Date/Time: Relationship to Patient: Witness Name/Signature: Date/Time: [place] [address]-14-2023 Note ORIGINAL EXAMINATION: THREE XRAY VIEWS OF [...] Sign Date: 03/21/2023 6:06:06 PM Ordering Provider: [address]14-2023 Note ORIGINAL EXAMINATION: THREE XRAY VIEWS [...] Sign Date: 03/21/2023 6:05:27 PM Ordering Provider: [address]14-2023 Note ORIGINAL EXAMINATION: THREE XRAY VIEWS [...] Sign Date: 03/21/2023 6:05:27 PM Ordering Provider: [facility]07-14-2023 Note ORIGINAL EXAMINATION: THREE XRAY VIEWS OF [...] Sign Date: 03/21/2023 6:06:06 PM [facility] No data available for this section [facility] Evaluation + Plan note Future Appointments Appointment Date:03/08/2025 03:00:00 PM Scheduled Provider:LIBBY SUAZO DO Location:[facility] Appointment Type:PC OV Diagnostic Tests Pending * Lipoprotein (a) 03/04/25 * Vitamin B12 Level 03/04/25 * Apolipoprotein B 03/04/25 Future Scheduled Tests Laboratory* Albumin/Creatinine Ratio, Random Urine 02/11/25 [facility] Evaluation + Plan note Future Appointments Appointment Date:04/12/2025 03:00:00 PM Scheduled Provider:LIBBY SUAZO DO Location:[facility] Appointment Type: OV Future Scheduled Tests Laboratory* Vitamin B12 Level 03/08/25 * A1C Hemoglobin 03/08/25 * Albumin/Creatinine Ratio, Random Urine 02/11/25 * Complete Metabolic Panel 03/08/25 [facility] Evaluation + Plan note Future Appointments Appointment Date:04/29/2025 02:45:00 PM Scheduled Provider:LIBBY SUAZO DO Location:[facility] Appointment Type:PC OV Future Scheduled Tests Laboratory* Vitamin B12 Level 03/08/25 * A1C Hemoglobin 03/08/25 * Albumin/Creatinine Ratio, Random Urine 02/11/25 * Complete Metabolic Panel 03/08/25 Radiology* MRI Foot w/o Contrast Right 04/11/25 [facility] Evaluation + Plan note Future Appointments Appointment Date:05/06/2025 02:45:00 PM Scheduled Provider:LIBBY SUAZO DO Location:[facility] Appointment Type: OV Future Scheduled Tests Laboratory* Vitamin B12 Level 03/08/25 * A1C Hemoglobin 03/08/25 * Albumin/Creatinine Ratio, Random Urine 02/11/25 * Complete Metabolic Panel 03/08/25 Radiology* MRI Foot w/o Contrast Right 04/11/25 [facility] Evaluation + Plan note Future Appointments Appointment Date:08/12/2025 08:30:00 AM Scheduled Provider:MANUEL NORMAN MD Location:[facility] Appointment Type: [facility] Future Scheduled Tests Laboratory* Vitamin B12 Level 03/08/25 * A1C Hemoglobin 03/08/25 * Albumin/Creatinine Ratio, Random Urine 02/11/25 * Complete Metabolic Panel 03/08/25 Radiology* MRI Foot w/o Contrast Right 04/11/25 [facility] Hospital Discharge instructions No data available for this section [facility] Progress note No data available for this section [facility] Summary Purpose Family History No Family History [...] section and content) DATE CREATED AUTHOR 02/25/2018 [facility] DATE CREATED AUTHOR AUTHOR'S ORGANIZ ATION 09/23/2019 [facility] DATE CREATED AUTHOR AUTHOR'S ORGANIZ ATION 03/15/2021 [facility] DATE CREATED AUTHOR AUTHOR'S ORGANIZ ATION 10/18/2021 [facility] DATE CREATED AUTHOR AUTHOR'S ORGANIZ ATION 09/06/2023 [facility] ([place]) DATE CREATED AUTHOR AUTHOR'S ORGANIZ ATION 02/08/2024 [facility] DATE CREATED AUTHOR AUTHOR'S ORGANIZ ATION 06/02/2024 [facility] DATE CREATED AUTHOR AUTHOR'S ORGANIZ ATION 05/05/2025 [facility] DATE CREATED AUTHOR AUTHOR'S ORGANIZ ATION 05/30/2025 [facility] DATE CREATED AUTHOR AUTHOR'S ORGANIZ ATION 07/21/2025 [facility] Patient Care team informatio n (unrecognized section and content) Care Team Personnel Name: CLIF FLANNERY MD Member Role: Primary Care Physician Address: Address: [address] [place] [id number]- Name: CAR BONILLA MD Position: ED Physician Member Role: ED Physician Address: Address: [address] [place] [address]- [place] Name: Yelena Horan RN Position: ED RN Member Role: ED RN Care Team Related Persons Name: NONE, Care Team Personnel Name: CLIF FLANNERY MD Member Role: Primary Care Physician Address: Address: [address] [place] [id number]- Name: ABI LOPEZ MD Position: ED Physician Member Role: Attending Physician Address: Address: [address] [place] [id number] Name: ROSA Ritter Position: RN Member Role: ED RN Name: Anne Liriano RN Position: AO RN Member Role: ED RN Care Team Related Persons Name: NONE, Care Team Personnel Name: CLIF FLANNERY MD Member Role: Primary Care Physician Address: [address] Telecom: Care Team Related Persons Name: NONE, Care Team Personnel Name: CLIF FLANNERY MD Member Role: Primary Care Physician Address: [address] [place] Telecom: Care Team Related Persons Name: TAMY GOVEA Care Team Personnel Name: LIBBY SUAZO DO Position: P4 Physician - Primary Care Member Role: Primary Care Physician Address: [address] [place] [address] Telecom: Care Team Related Persons Name: TAMY GOVEA Care Team Personnel Name: LIBBY SUAZO DO Position: P4 Physician - Primary Care Member Role: Primary Care Physician Address: [address] [place] [address] Telecom: Care Team Related Persons Name: TAMY GOVEA Care Team Personnel Name: LIBBY SUAZO DO Position: P4 Physician - Primary Care Member Role: Primary Care Physician Address: [address] Telecom: Care Team Related Persons Name: TAMY GOVEA Care Team Personnel Name: LIBBY SUAZO DO Position: P4 Physician - Primary Care Member Role: Primary Care Physician Address: [address] Telecom: Care Team Related Persons Name: TAMY GOVEA Care Team Personnel Name: LIBBY SUAZO DO Position: P4 Physician - Primary Care Member Role: Primary Care Physician Address: [address] [place] [address] Telecom: Care Team Related Persons Name: TRENT [...] BE BASED ON THE PRIMARY CLINICAL RECORDS. [facility], [facility]. provides no warranty or guarantee of the accuracy or completeness of information in this document.
[2025-08-19 00:54] LABS: Magnesium 1.9 mg/dL (1.5-2.2)
[2025-08-19 01:07] LABS: Troponin T High Sens 2 HR 6 ng/L (<=14)
[2025-08-19 01:07] LABS: Troponin T High Sens 4 HR 6 ng/L (<=14)
[2025-08-19] MEDS: Nicotine (PBKC) 21 MG Patch TD ×2 (01:42→10:04)
[2025-08-19] MEDS: Insulin Glargine-YFGN 100 UNIT/ML Pen 25 UNIT SC (01:43)
[2025-08-19] MEDS: MELATONIN 3 MG TABLET PO (01:47)
[2025-08-19] MEDS: 0.9% Normal Saline (1000mL) 1,000 ML 100 ML IV (04:52)
[2025-08-19 05:12] LABS: Hematocrit 35.3 % (37-47); Hemoglobin 12.2 g/dL (12.0-15.0); Immature Granulocytes Count 0.020 X10^3/uL (0.0-0.0); Mean Corp Hgb Conc 34.6 g/dL (32-36); Mean Corpuscular Volume 89.1 fL (81-99); Mean Platelet Vol. 11.1 fl (6.2-12.0); NRBC Flagged by Analyzer 0 % (0-5); Platelet Count 203 K/mm3 (150-450); RBC Distribution Width CV 11.9 % (11.6-14.6); RBC Distribution Width SD 38.4 fl (35.1-43.9); Red Blood Count 3.96 M/mm3 (4.2-5.4); White Blood Count 9.8 K/mm3 (4.4-11.0)
[2025-08-19 05:52] LABS: AST(SGOT) 27 U/L (<=31); Alanine Aminotransfer ALT/SGPT 25 U/L (<=34); Albumin, Serum 3.9 g/dL (3.5-5.0); Alkaline Phosphatase 98 U/L (35-104); Anion Gap 12 (5-15); BUN 9 mg/dL (4-19); BUN/Creat Ratio 11.5 RATIO (10-20); Calcium,Total 9.0 mg/dL (7.6-11.0); Carbon Dioxide 23.8 mmol/L (21.0-32.0); Chloride 99 mmol/L (98-108); Estimated Creatinine Clearance 111.15 ml/min (50-250); Globulin 2.8 g/dL (2.2-4.2); Glucose 242 mg/dL (70-99); Potassium 4.0 mmol/L (3.3-5.1)
[2025-08-19] MEDS: Aspirin E.C. 81 MG Tablet PO (06:17)
--- NOTE | 2025-08-19 08:07 | PN.HOSP_ITS ---
Reason for Visit Chief Complaint: Chest pain. Subjective Subjective Feeling well. Still chest pain going into her back and also going down her right arm. Objective Data Objective Data Vital Signs: Vital Signs Temp Pulse Resp BP Pulse Ox O2 Del Method 36.6 C 86 14 117/82 H 95 Room Air 08/19/25 07:35 08/19/25 07:35 08/19/25 07:35 08/19/25 07:35 08/19/25 07:35 08/19/25 07:35 Oxygen Delivery Method Room Air Weight: 101.7 kg Body Mass Index (BMI) 33.0 Intake & Output: Intake and Output for Last 24 Hours 08/17/25 08/18/25 08/19/25 23:59 23:59 23:59 Intake Total 1270 / 1270 Balance 1270 / 1270 Lab / Micro Data 08/19/25 04:17 08/19/25 04:17 Labs: Laboratory Results - last 24 hr 08/18/25 22:14: WBC 11.3 H, RBC 4.38, Hgb 13.4, Hct 38.6, MCV 88.1, MCH 30.6, MCHC 34.7, RDW Std Deviation 38.3, RDW Coeff of Martin 11.8, Plt Count 226, MPV 10.9, Immature Gran % (Auto) 0.300, Neut % (Auto) 53.0, Lymph % (Auto) 35.2, Izard % (Auto) 6.2, Eos % (Auto) 4.6, Baso % (Auto) 0.7, Absolute Neuts (auto) 6.0, Absolute Lymphs (auto) 3.98, Nucleated RBC % 0, D-Dimer Quant (PE/DVT) 0.61 H*, Sodium 132 L, Potassium 4.1, Chloride 96 L, Carbon Dioxide 21.3, Anion Gap 15, BUN 10, Creatinine 0.80, Estim Creat Clear Calc 105.68, Est GFR (MDRD) Non- Af 90, BUN/Creatinine Ratio 12.4, Glucose 318 H, Calcium 9.5, Magnesium 1.9, Troponin T High Sens 6 08/19/25 00:20: Troponin T Hi Sens 4Hr 6 08/19/25 00:30: Troponin T Hi Sens 2 Hr 6 08/19/25 01:04: POC Glucose 282 H 08/19/25 04:17: WBC 9.8, RBC 3.96 L, Hgb 12.2, Hct 35.3 L, MCV 89.1, MCH 30.8, MCHC 34.6, RDW Std Deviation 38.4, RDW Coeff of Martin 11.9, Plt Count 203, MPV 11.1, Immature Gran % (Auto) 0.200, Neut % (Auto) 49.1, Lymph % (Auto) 37.7, Izard % (Auto) 6.2, Eos % (Auto) 6.0 H, Baso % (Auto) 0.8, Absolute Neuts (auto) 4.8, Absolute Lymphs (auto) 3.70, Nucleated RBC % 0, Sodium 135, Potassium 4.0, Chloride 99, Carbon Dioxide 23.8, Anion Gap 12, BUN 9, Creatinine 0.76, Estim Creat Clear Calc 111.15, Est GFR (MDRD) Non-Af 96, BUN/Creatinine Ratio 11.5, G lucose 242 H, Calcium 9.0, Total Bilirubin 0.36, AST 27, ALT 25, Alkaline Phosphatase 98, Total Protein 6.8, Albumin 3.9, Globulin 2.8, Albumin/Globulin Ratio 1.4 08/19/25 06:13: POC Glucose 256 H Radiography Diagnostic Testing: Radiology Impression Chest X-Ray 08/18/25 22:35 IMPRESSION: No acute cardiopulmonary disease. Reading Location: [facility] Chest CTA 08/18/25 23:21 IMPRESSION: No evidence of pulmonary arterial thromboembolism. No obvious pulmonary masses or consolidations. [facility] Ex[facility] Const alert and no apparent distress HEENT head/scalp atraumatic and moist oral mucous membranes Resp normal respiratory effort, no retractions, no use of accessory muscles and clear to auscultation bilaterally Cardio regular rate, regular rhythm, S1 normal heart sound and S2 normal heart sound GI normal to inspection, nondistended, normoactive bowel sounds, soft to palpation, non-tender and non-distended Extremity normal to inspection and full ROM Neuro Sensorium / Orientation: awake, alert, oriented to person, oriented to place and oriented to time Assessment & Plan Assessment/Plan (1) Chest pain: PLAN: Plan Chest Pain: * trops negative. CTA chest negative. * stress negative * I suspect musculoskeletal. Atypical presentation as she was having chest pain worse with deep respirations and also into her ipsilateral back but was having pain down her right arm. * Patient later endorsed that she was having a panic attack. Patient to be discharged home in stable condition. Chronic medical conditions: * Diabetes mellitus type II: Will hold oral regimen, will continue home insulin regimen, ADA diet until n.p.o. status for evaluation as noted above, accu checks w/ ISS. * Anxiety and depression/mood disorder: Will continue patient home sertraline regimen as well as aripiprazole and Ativan as needed regimen. * Tobacco Abuse: Encouraged cessation, inpatient consultation per RT, NR if desired. * Obesity: Weight loss and lifestyle changes encouraged. * History of breast cancer: Patient with history of breast cancer unclear specific type or location but status post bilateral mastectomy with previous chemotherapy approximately 15 years prior, continued in remission, encourage follow-up outpatient as previously arranged. DVT prophylaxis: Lovenox.
[2025-08-19] MEDS: 0.9% Saline Lock 10 ML Syringe IV (10:04)
--- NOTE | 2025-08-19 11:15 | CASEMGMT ---
CARRILLO Met with patient to complete CARRILLO form. CARRILLO form and its content were verbally explained and patient's questions were answered to the best of my ability.? Patient voiced understanding and signed CARRILLO form.? Patient provided a copy of signed CARRILLO form and original placed in patient's chart.? Patient had no further questions. Nicolette Baez, Discharge Planning Asst
--- NOTE | 2025-08-19 11:22 | CASEMGMT ---
Social Work SW completed a SDOH with the patient. Patient reported she has received utility shut off notices but was able to pay it before the utility was shut off. Patient does not think they would qualify for HEAP. Patient reported they have concerns off running out of food and not having money to buy food. SW provided resources such as- [employer] and food pantries. GASPER Edwards
--- NOTE | 2025-08-19 11:39 | STRESSREP ---
Stress Test Report Date: 08/19/2025 Procedure: Exercise tolerance test/imaging study Indications: Chest pain Consent: Per the patient Procedure: The patient exercised on a Venu protocol for 5 minutes achieving a peak heart rate of 155 bpm (91% predicted maximal heart rate) with a peak blood pressure 148/84 mmHg and a peak MET capacity of 7 METs. The baseline ECG demonstrated normal sinus rhythm. The peak exercise ECG demonstrated no significant ischemic changes. EKG during recovery revealed no significant ischemic changes [There were no cardiac dysrhythmias pretest, during exercise, or recovery]. The functional capacity was considered normal for age. There was [no complaint of chest discomfort during exercise or recovery]. The examination was discontinued secondary to dyspnea. Impression: 1. Technically adequate (percent predicted maximal heart rate greater than 85%) exercise tolerance test 2. Stress test is negative for exercise-induced EKG changes of ischemia 3. The test test is negative for exercise-induced chest pain 4. Functional capacity is normal for age 5. Nuclear images pending Myocardial perfusion imaging study: Technique: The patient was injected with 15 mCi of technetium 99m Cardiolite and subsequently rest SPECT Cardiolite nuclear imaging was obtained in the horizontal long, vertical long, and short axis views. The patient exercised on a Venu protocol. Please see above for details. The patient was injected with 44.9 mCi of technetium 99m Cardiolite and subsequently stress SPECT Cardiolite nuclear imaging was obtained in the horizontal long, vertical long, and short axis views. A gated Cardiolite study at peak stress was obtained. Interpretation: Rest and stress SPECT Cardiolite nuclear imaging status post realignment, normalization, and attenuation correction, demonstrates no evidence of significant ischemia or infarction after attenuation correction. Prior to attenuation correction there is mild decrease in the radioisotope uptake in the inferior wall that is suggestive of diaphragmatic attenuation artifact. The gated Cardiolite study demonstrates no significant regional wall motion abnormalities. The reported LVEF is 58%. Impression: 1. There is no evidence of significant ischemia or infarction. 2. The gated Cardiolite study reports an LVEF of 58%. This note was generated with [employer] software. It may contain incorrect words, spelling, and punctuation that were not noted in checking the note before signing.
--- NOTE | 2025-08-19 13:33 | DS.PCM_ITS ---
Providers Date of Admission: 08/19/25 Primary Care Physician: Dr. Jass Maynard, DO Reason For Visit: CHEST PAIN Diagnosis Discharge Diagnosis (1) Chest pain: Status: Acute Code(s): R07.9 - Chest pain, unspecified Plan Chest Pain: * trops negative. CTA chest negative. * stress negative * I suspect musculoskeletal. Atypical presentation as she was having chest pain worse with deep respirations and also into her ipsilateral back but was having pain down her right arm. * Patient later endorsed that she was having a panic attack. Patient to be discharged home in stable condition. Chronic medical conditions: * Diabetes mellitus type II: Will hold oral regimen, will continue home insulin regimen, ADA diet until n.p.o. status for evaluation as noted above, accu checks w/ ISS. * Anxiety and depression/mood disorder: Will continue patient home sertraline regimen as well as aripiprazole and Ativan as needed regimen. * Tobacco Abuse: Encouraged cessation, inpatient consultation per RT, NR if desired. * Obesity: Weight loss and lifestyle changes encouraged. * History of breast cancer: Patient with history of breast cancer unclear specific type or location but status post bilateral mastectomy with previous chemotherapy approximately 15 years prior, continued in remission, encourage follow-up outpatient as previously arranged. DVT prophylaxis: Lovenox. Medications at Discharge Home Medications aripiprazole 10 mg tablet 15 mg PO DAILY 04/09/19 insulin aspart U-100 100 unit/mL (3 mL) subcutaneous pen 0 unit SQ TID 04/09/19 insulin detemir U-100 100 unit/mL (3 mL) subcutaneous pen 25 units SQ QHS 04/09/19 lorazepam 2 mg tablet 2 mg PO PRN PRN Anxiety 04/09/19 metformin 1,000 mg tablet 1,000 mg PO DAILY 04/09/19 Held on 08/19/25. Instructions: Resume on 08/23/25. sertraline 100 mg tablet 100 mg PO DAILY 04/09/19 cyclobenzaprine 10 mg tablet 10 mg PO TID PRN Muscle Spasm #20 tabs 05/21/19 glipizide 10 mg tablet 10 mg PO DAILY 08/18/25 Hospital Course Operations None Procedures Stress test Summary of Care Provided Hospital Course: 50-year-old female presents with chest pain. CTA of the chest and stress test were negative. Chest pain felt to be likely musculoskeletal possibly due to costochondritis. Patient be discharged home in stable condition. Weight / BMI Weight Weight: 101.7 kg Body Mass Index (BMI) 33.0 ABG / Lab / Microbiology Data 08/19/25 04:17 08/19/25 04:17 Laboratory: Laboratory Results - last 24 hr 08/18/25 22:14: WBC 11.3 H, RBC 4.38, Hgb 13.4, Hct 38.6, MCV 88.1, MCH 30.6, MCHC 34.7, RDW Std Deviation 38.3, RDW Coeff of Martin 11.8, Plt Count 226, MPV 10.9, Immature Gran % (Auto) 0.300, Neut % (Auto) 53.0, Lymph % (Auto) 35.2, Waldo % (Auto) 6.2, Eos % (Auto) 4.6, Baso % (Auto) 0.7, Absolute Neuts (auto) 6.0, Absolute Lymphs (auto) 3.98, Nucleated RBC % 0, D-Dimer Quant (PE/DVT) 0.61 H*, Sodium 132 L, Potassium 4.1, Chloride 96 L, Carbon Dioxide 21.3, Anion Gap 15, BUN 10, Creatinine 0.80, Estim Creat Clear Calc 105.68, Est GFR (MDRD) Non- Af 90, BUN/Creatinine Ratio 12.4, Glucose 318 H, Calcium 9.5, Magnesium 1.9, Troponin T High Sens 6 08/19/25 00:20: Troponin T Hi Sens 4Hr 6 08/19/25 00:30: Troponin T Hi Sens 2 Hr 6 08/19/25 01:04: POC Glucose 282 H 08/19/25 04:17: WBC 9.8, RBC 3.96 L, Hgb 12.2, Hct 35.3 L, MCV 89.1, MCH 30.8, MCHC 34.6, RDW Std Deviation 38.4, RDW Coeff of Martin 11.9, Plt Count 203, MPV 11.1, Immature Gran % (Auto) 0.200, Neut % (Auto) 49.1, Lymph % (Auto) 37.7, Waldo % (Auto) 6.2, Eos % (Auto) 6.0 H, Baso % (Auto) 0.8, Absolute Neuts (auto) 4.8, Absolute Lymphs (auto) 3.70, Nucleated RBC % 0, Sodium 135, Potassium 4.0, Chloride 99, Carbon Dioxide 23.8, Anion Gap 12, BUN 9, Creatinine 0.76, Estim Creat Clear Calc 111.15, Est GFR (MDRD) Non-Af 96, BUN/Creatinine Ratio 11.5, G lucose 242 H, Calcium 9.0, Total Bilirubin 0.36, AST 27, ALT 25, Alkaline Phosphatase 98, Total Protein 6.8, Albumin 3.9, Globulin 2.8, Albumin/Globulin Ratio 1.4 08/19/25 06:13: POC Glucose 256 H 08/19/25 11:49: POC Glucose 265 H Radiography Diagnostic Testing: Radiology Impression Chest X-Ray 08/18/25 22:35 IMPRESSION: No acute cardiopulmonary disease. Reading Location: [id number] Chest CTA 08/18/25 23:21 IMPRESSION: No evidence of pulmonary arterial thromboembolism. No obvious pulmonary masses or consolidations. Reading [facility] Instructions DC O2, CPAP, BIPAP Needs Home O2 Discharge instructions: No Meaningful Use Info Meaningful Use Meaningful Use Diagnoses (Choose all that apply): None applicable Discharge Plan Admission Admit Date/Time: 08/19/25 00:07 Primary Reason for Your Visit: Chest pain Attending Provider: Miguel Gamez Primary Care Provider: Jass Maynard Consulting Providers: Radha Goldberg Instructions Additional Instructions / Restrictions: You have chest pain. Your lab work, CAT scan and stress test were all normal. Chest pain is likely due to some chest wall pain. This should improve with time Discharge Orders/Prescriptions Prescriptions: Continued sertraline 100 MG tablet 100 mg PO DAILY lorazepam 2 MG tablet 2 mg PO PRN PRN (Reason: Anxiety) aripiprazole 10 MG tablet 15 mg PO DAILY Patient Comments: TAKE 1 TABLET BY MOUTH ONCE DAILY insulin aspart U-100 100 UNITS/ML insulin pen 0 unit SQ TID Patient Comments: INJECT 10 UNITS BEFORE MEALS AND SLIDING SCALE NEEDED. BS 150 200 4UNITS 200 250 6 UNITS 250 300 10 UNITS 300 350 12 UNITS 350 400 15 UN Rx Instructions: S/S insulin detemir U-100 100 UNITS/ML insulin pen 25 units SQ QHS Patient Comments: INJECT 20 UNITS SUBCUTANEOUSLY AT BEDTIME DAILY. CAN ADJUST BY 2 UNITSEVERY OTHER DAY cyclobenzaprine 10 MG tablet 10 mg PO TID PRN (Reason: Muscle Spasm) Qty: 20 0RF glipizide 10 mg tablet 10 mg PO DAILY Held metformin 1,000 MG tablet 1,000 mg PO DAILY Hold Instructions: Resume on 08/23/25. Referrals / Follow Up: Ashley Valencia MD [Med Staff - Postal Service Window Clerk, Family Practice] Jass Maynard DO [Primary Care Provider, Medical] Disposition Disposition (needs filled in before D/C Order can be placed): Home, Self Care Charges/Coding Visit Charges Inpatient E&M: 16625 Disch Hosp
--- NOTE | 2025-08-19 13:56 | CASEMGMT ---
Patient has order for discharge. RN CM in to discuss needs at discharge. Patient denies needs or help at discharge. Patient had no further questions or concerns.
== END 2025-08-19 14:07 | disposition home or self-care (01) ==
LOC: ED 23:49 → PCU 08-19 00:24
PROVIDERS: Admitting Provider Family Medicine; Emergency Provider Emergency Medicine
DX: R07.89 Other chest pain (principal); Z79.4 Long term (current) use of insulin; E11.22 Type 2 diabetes mellitus with diabetic chronic kidney disease; E66.9 Obesity, unspecified; F41.9 Anxiety disorder, unspecified; M79.601 Pain in right arm; F17.210 Nicotine dependence, cigarettes, uncomplicated; E87.1 Hypo-osmolality and hyponatremia; N18.2 Chronic kidney disease, stage 2 (mild); Z82.49 Family history of ischemic heart disease and other diseases of the circulatory system; M54.2 Cervicalgia; R06.02 Shortness of breath; Z79.84 Long term (current) use of oral hypoglycemic drugs; Z79.899 Other long term (current) drug therapy; Z68.33 Body mass index [BMI] 33.0-33.9, adult; F32.A Depression, unspecified; R03.0 Elevated blood-pressure reading, without diagnosis of hypertension
CPT/HCPCS: 36415; 71045; 71275; 78452; 80048; 80053; 82962; 83735; 84484; 85025; 85379; 93005; 93017; 96361; 96374; 96376; 99221; 99285; A9500; Q9967; A4216; G0378

== ENCOUNTER 2025-09-03 07:54 | Emergency (ER) | payer OTHER, MEDICARE, SELFPAY ==
[2025-09-03 07:55] VITALS: BP 154/83; PULSE 126; RESP 18; TEMP 36.7; O2SAT 98; BMI 32.0
--- NOTE | 2025-09-03 08:07 | EDS_ITS ---
HPI History of Present Illness Chief Complaint: Upper Extremity Injury Narrative Narrative: Pt is a 50-year-old female who is presenting to the ER with chief complaint of right wrist pain over the right distal radius, right wrist. Patient fell backwards, having a FOOSH injury. Patient is right-hand dominant. 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 Patient's is at bedside. Patient is right-hand dominant. Patient over 30 years ago had a right wrist injury where she tore all of her ligaments as well. Patient never had surgery at that time, patient was in a cast for 6 weeks. Patient stated this happened approximately 630 this morning. Patient said that she was playing darts in the basement, and her dog had gone behind her and she tripped on her dog home. Patient did not hit her head. No other acute injuries besides the right wrist. REVIEW OF SYSTEMS: Unless otherwise stated in this report the patient's positive and negative responses for review of systems for constitutional, eyes, ENT, cardiovascular, respiratory, gastrointestinal, neurological, , musculoskeletal, and integument systems and related systems to the presenting problem are either stated in the history of present illness or were not pertinent or were negative for the symptoms and/or complaints related to the presenting medical problem. Nurse's notes and vital signs reviewed. The patient is not hypoxic. Vital signs reviewed and patient is not hypoxic. She has no elicited heart rate initially elevated, this was not accurate during HPI and physical exam General: The patient appears well and in no apparent distress. Patient is resting comfortably on cart. Not toxic, lethargic, or listless. Skin: Warm, dry, no pallor noted. There is no rash noted. Head: Normocephalic, atraumatic Eye: Normal conjunctiva, no drainage, EOMI. PERRL. Ears, Nose, Mouth, and Throat: oral mucosa is moist. Nares patent. Mouth without vesicles. Cardiovascular: Not tachycardic, regular Rate approximately 80s/90s and Rhythm, no murmurs, gallops, or rubs Respiratory: Patient is in no distress, no accessory muscle use, lungs are clear to auscultation, no wheezing, rales or rhonchi Back: non-tender, GI: Soft, no tenderness Musculoskeletal: The patient has full range of motion of all extremities and joints with no difficulty except to the right wrist. Patient has moderate to severe pain to the right anatomical snuffbox, patient has moderate tenderness palpation in 2 distal right radius, along with ulna as well. Patient has limited flexion extension abduction adduction of the right wrist secondary to pain. Mild swelling, no ecchymosis. No bony tenderness to palpation to the metacarpals or other bony prominences of the right hand. Patient has mild pain to the distal third of the radius and ulna. Patient has full range of motion of right elbow, shoulder with no difficulty. No tenderness palpation to right shoulder, clavicle. Full range of motion of cervical spine no difficulty. Patient has no motor, no sensory deficits. Neurological: A&O x4, normal speech, no focal neurological deficits. Psychiatric: [facility] Medical History History of breast cancer CKD (chronic kidney disease), stage II Diabetes mellitus, type 2 Obesity Tobacco use Mood disorder Bipolar disorder Anxiety and depression Home Medications ?Medication ?Instructions ?Recorded ?Last Taken ?Type aripiprazole 10 mg tablet 15 mg PO DAILY 04/09/19 Unkn own History insulin aspart U-100 100 unit/mL 0 unit SQ TID 9 Unknown History (3 mL) subcutaneous pen insulin detemir U-100 100 unit/mL 25 units SQ QHS 10/27 Unknown History (3 mL) subcutaneous pen lorazepam 2 mg tablet 2 mg PO PRN PRN Anxiety 10/27 Unknown History metformin 1,000 mg tablet 1,000 mg PO DAILY 04/09/19 U nknown History Held on 08/19/25. Instructions: Resume on 08/23/25. sertraline 100 mg tablet 100 mg PO DAILY 04/09/19 Unk nown History cyclobenzaprine 10 mg tablet 10 mg PO TID PRN Muscle S pasm #20 05/21/19 Unknown Rx tabs glipizide 10 mg tablet 10 mg PO DAILY 08/18/25 Unkn own History Allergy/AdvReac Type Severity Reaction Status Date / Time No Known Allergies Allergy Verified 09/03/25 07:56 Family History (Updated 08/19/25 @ 00:[address] Radha Goldberg MD) Mother Hypertension Father Hypertension CAD (coronary artery disease) Heart disease Myocardial infarction Surgical History S/P bilateral mastectomy S/P cholecystectomy S/P Social History (Updated 08/19/25 @ 00:[address] Radha Goldberg MD) household members: spouse Smoking Status: Current every day smoker tobacco type: cigarettes quit status: considering quitting alcohol intake: never substance use type: does not use EXAM Physical Exam Const Vital Signs: 09/03/25 07:55 Temperature 98.1 F Temperature Source Oral Pulse Rate 126 H Respiratory Rate 18 Blood Pressure 154/83 H Blood Pressure Mean 106 Pulse Ox 98 Oxygen Delivery Method Room Air MDM MDM MDM Narrative Medical decision making narrative: Patient seen and examined: Ice, x-ray, Motrin Differential diagnosis includes but is not limited to: Right wrist pain, right distal radius fracture, right ulna fracture, right scaphoid fracture, right wrist sprain Radiological studies: Right wrist x-ray shows no acute fracture, dislocation, or acute abnormality. EKG interpreted by Dr. Cuellar. Reevaluation: Patient had ice applied to right wrist by myself. Patient was given Motrin 8 or milligrams Social barriers to healthcare: There are no food insecurities, there is no issue with transportation, there are no insurance barriers Disposition: Patient is placed in a Velcro right wrist splint Splint was assisted with Dr. Cuellar. The patient was neurovascular intact before and after the splint was placed. The affected bones/injured area had proper alignment in a splint. Education on splint care at home was given at bedside. Patient and family had no questions at disposition. Education on RICE therapy was done at bedside and on discharge paperwork. Patient was given right Velcro wrist splint. Patient is off work today and tomorrow. Patient was given mild restrictions for Friday, Friday, Friday of this coming week. 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 Alternate Tylenol Motrin was discussed. Patient was happy has no fracture. Education of right wrist pain was discussed. Follow-up with PCP and referral if needed. Patient's heart rate was documented at 126 in triage. When I evaluate and auscultated heart and lungs, patient's heart rate was in the 80s/90s. No question of discharge. Discharge Plan Triage Chief Complaint: Upper Extremity Injury ED Provider: Claude Cuellar Dx/Rx/DC Orders Clinical Impression: Pain in right wrist Instructions: Exercises Hand Wrist, Self-Care for Strains and Sprains, ED Wrist Splint, ED RICE Prescriptions: No Action sertraline 100 MG tablet 100 mg PO DAILY lorazepam 2 MG tablet 2 mg PO PRN PRN (Reason: Anxiety) metformin 1,000 MG tablet 1,000 mg PO DAILY aripiprazole 10 MG tablet 15 mg PO DAILY Patient Comments: TAKE 1 TABLET BY MOUTH ONCE DAILY insulin aspart U-100 100 UNITS/ML insulin pen 0 unit SQ TID Patient Comments: INJECT 10 UNITS BEFORE MEALS AND SLIDING SCALE NEEDED. BS 150 200 4UNITS 200 250 6 UNITS 250 300 10 UNITS 300 350 12 UNITS 350 400 15 UN Rx Instructions: S/S insulin detemir U-100 100 UNITS/ML insulin pen 25 units SQ QHS Patient Comments: INJECT 20 UNITS SUBCUTANEOUSLY AT BEDTIME DAILY. CAN ADJUST BY 2 UNITSEVERY OTHER DAY cyclobenzaprine 10 MG tablet 10 mg PO TID PRN (Reason: Muscle Spasm) Qty: 20 0RF glipizide 10 mg tablet 10 mg PO DAILY Stand Alone Forms: ED Work / School Excuse Primary Care Provider: Jass Maynard Referrals: Jass Maynard DO [Primary Care Provider, Medical] Activity Restrictions/Additional Instructions: Use ice 20 minutes on, 20 minutes off, do not use any heat. You may alternate Tylenol and either Motrin, Advil, ibuprofen every 4 hours as needed for pain/fever. Take anti-inflammatories with food or drink to help buffer the medication. MAX dose of Tylenol is 3000 mg a day. MAX dose of Motrin, Advil, ibuprofen is 2400 mg a day. Print Language: Brazilian Disposition Disposition: Home, Self Care Discharge Date/Time: 09/03/25 09:05
--- NOTE | 2025-09-03 08:08 | RAD_ITS ---
EXAM: XR Right Wrist Complete, 3 or More Views CLINICAL INDICATION: FAL; TECHNIQUE: Frontal, lateral and oblique views of the right wrist. COMPARISON: No relevant prior studies available. FINDINGS: BONES/JOINTS: See below. SOFT TISSUES: Soft tissue swelling without acute fracture. No radiopaque foreign body. RAD/Wrist min 3 Views IMPRESSION: 1. Soft tissue swelling without acute fracture. 2. If symptoms persist, further evaluation with CT is recommended. Reading Location: [id number]
--- OUTSIDE RECORDS SUMMARY | 2025-09-03 08:49 | XMS RPT_ITS | CCD ---
Author Organization [facility] Care Team Providers Care Copy And Print Associate Name Role Phone GUERO SHABAZZ Unavailable Unavailable [facility], GENERIC Unavailable Unavailable TAMERA ARCE Unavailable Unavailabl [facility] MEDIC, GENERIC Unavailable Unavailable SUMIT LERNER Unavailable Unavailable PRUDECNIO THOMAS, DR CLIF Sahu Primary Care Physician JOHN THOMAS, DR ABI Huber Attending Unavailsharon FLANNERY MD, DR CLIF Sahu Primary Care UnavailCAR Ramirez Attending Unavailable PRUDENCIO THOMAS, DR CLIF Sahu Primary Care UnavailTRANG Trejo (PA-C) Referring Unava ilable LIBBY SUAZO DO Primary Care Physician JAN OLEARY Attending Unavailable MISC, DOCTOR Primary Care Unavailable UNGERERCHEYENNE GROUP WORK PROGRAM AIDE Consulting Unavailable CHEYENNE BALES [employer] WORK PROGRAM AIDE Referring Unavailable WAYLON MADDOX MD Admitting Unavailable WAYLON MADDOX MD Primary Care Unavailable WAYLON MADDOX MD Attending Unavailable PROVIDER, UNKNOWN Consulting Unavailable JERICHO HERNANDEZ Attending Unavailable CHEYENNE [employer]ES [employer] PROGRAM AIDE Consulting Unavailable JERICHO HERNANDEZ Admitting Unavailable JERICHO HERNANDEZ Primary Care Unavailable PROVIDER, UNKNOWN Consulting Unavailable UNGERER, CHEYENNE [employer] WORK PROGRAM AIDE Consulting Unavailable UNGERER CHEYENNE [employer] PROGRAM AIDE Attending Unavailable UNGERER CHEYENNE [employer] PROGRAM AIDE Admitting Unavailable UNGERER CHEYENNE [employer] PROGRAM AIDE Primary Care Unavailable PROVIDER, UNKNOWN Consulting Unavailable [...] to adverse reactions to drug (disorder) 4 [facility] Repository (2 sources) Pollen; Translations: [POLLEN] Propensity to adverse reactions (disorder) 4 [facility] Repository (1 source) misc non-codified allergy 1 Allergy to substance Eruption of skin (disorder) [facility] Comment on above: vinyl gloves NEGATED: Highlighted row has been ruled out! (1 source) Drug allergy [facility] Medications Current Medications Medication Drug Class(es) Dates [...] BEDTIME, # 100 tab(s), 0 Refill(s), Pharmacy: [facility] 174.5, cm, 02/11/25 13:42:00 EDT, Height, [...] 90 tab(s), 2 Refill(s), Pharmacy: [facility] #[facility], Foot pain, right Navicular fracture, [...] constipation, # 30 cap(s), 1 Refill(s), Pharmacy: [facility], 173, cm, 04/29/25 14:50:00 EDT, [...] qAM, # 30 tab(s), 1 Refill(s), Pharmacy: [facility] 174.5, cm, 03/08/25 15:02:00 EDT, Height, kg, 03/08/25 15:02:00 EDT, Dosing Weight Start Date: 03/08/25 Status: Ordered Medication Dispense Status: Completed Quantity: 30.0 Unit: tab(s) Total Allowed Fills: 2 Fills Dispensed: 0 Start: 02-22-2025 Jardiance 10 m g oral tablet Dose : 10 mg = 1 tab(s), Oral, qAM, # 30 tab(s), 0 Refill(s), Pharmacy: [facility] 174.5, cm, 02/11/25 13:42:00 EDT, Height, kg, [...] BID, # 16 gram(s), 2 Refill(s), Pharmacy: [facility], Nasal congestion, 173, cm, 04/29/25 [...] BID, # 16 gram(s), 0 Refill(s), Pharmacy: [facility] Nasal congestion, 174.5, cm, 02/11/25 13:42:00 [...] supply, # 2 EA, 3 Refill(s), Pharmacy: [facility]/pharmacy #[id number], Hypoglycemia Diabetes mellitus with insulin therapy, 173, [...] qDay, # 10 mL, 1 Refill(s), [id number] 173, cm, 05/23/25 14:32:00 EDT, Height, [...] qHS, # 30 tab(s), 2 Refill(s), Pharmacy: [facility], Nasal congestion, 173, cm, 04/29/25 14:50:00 EDT, Height, kg, 04/29/25 14:50:00 EDT, Dosing Weight Start Date: 05/12/25 Status: Ordered Medication Dispense Status: Completed Quantity: 30.0 Unit: tab(s) Total Allowed Fills: 3 Fills Dispensed: 0 Indications: Nasal congestion; Start: 04-12-2025 levocetirizine 5 mg oral tablet Dose : 5 mg = 1 tab(s), Oral, qHS, # 30 tab(s), 0 Refill(s), Pharmacy: [facility] #[facility], Nasal congestion, 173, cm, 04/12/25 15:01:00 EDT, Height, kg, 04/12/25 15:01:00 EDT, Dosing Weight Start Date: 04/12/25 Status: Ordered Medication Dispense Status: Completed Quantity: 30.0 Unit: tab(s) Total Allowed Fills: 1 Fills Dispensed: 0 Indications: Nasal congestion; Start: 02-11-2025 levocetirizine 5 mg oral tablet Dose : 5 mg = 1 tab(s), Oral, qHS, # 30 tab(s), 0 Refill(s), Pharmacy: [facility] Nasal congestion, 174.5, cm, 02/11/25 13:42:00 [...] qDay, # 90 cap(s), 1 Refill(s), Pharmacy: [facility]acy #[id number], 173, cm, 05/23/25 14:32:00 EDT, Height, kg, 05/23/25 14:32:00 EDT, Dosing Weight Start Date: 05/23/25 Status: Ordered Medication Dispense Status: Completed Quantity: 90.0 Unit: cap(s) Total Allowed Fills: 2 Fills Dispensed: 0 Start: 04-12-2025 nortriptyline 25 mg oral capsule Dose : 50 mg = 2 cap(s), Oral, qDay, # 60 cap(s), 1 Refill(s), Pharmacy: [facility] #30, 173, cm, 04/12/25 15:01:00 EDT, [...] dosing, # 30 cap(s), 0 Refill(s), Pharmacy: [facility] Chronic pain Bipolar 2 disorder, 174.5, [...] qDay, # 90 tab(s), 1 Refill(s), Pharmacy: [facility], 173, cm, 04/12/25 15:01:00 EDT, [...] hours, # 16 tab(s), 0 Refill(s), Pharmacy: [facility]acy #[id number], Migraines, 173, cm, 05/23/25 14:32:00 EDT, [...] qDay, # 100 tab(s), 1 Refill(s), Pharmacy: [facility] 174.5, cm, 02/11/25 13:42:00 EDT, Height, [...] 1 tablet by mouth every six hours Ina 325- 5 mg oral tablet Dose = [...] TID, # 90 tab(s), 2 Refill(s), Pharmacy: [facility] Chronic pain Osteoarthritis, 174.5, cm, 02/11/25 [...] DAILY, # 100 tab(s), 0 Refill(s), Pharmacy: [facility] 174.5, cm, 02/11/25 13:42:00 EDT, Height, [...] BID, # 200 tab(s), 0 Refill(s), Pharmacy: [facility] 174.5, cm, 03/08/25 15:02:00 EDT, Height, [...] regimen behavior finding 02-11-2025 Unclassified (2 sources) shelter current use of non-steroidal anti-inflammatory drug 04-29-2025 Past or Other Problems Problem Classification Problem Date Documented Da te Episodic/Chronic Other aftercare (1 source) 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; Translations: [HALF-WAY (CURRENT) USE OF INSULIN] Onset: 08-20-2019 Episodic Other aftercare (1 source) Other usp (current) drug therapy; Translations: [OTHER HALF-WAY (CURRENT) DRUG THERAPY] Onset: 08-20-2019 Episodic Otitis [...] Basophil, Absolute 0.1 10 3/mcL Normal 0.0-0.3 [facility] Comment on above: Performed By: #### C TRIPP CHAVEZ, ANEU, CBC, TROPHS, GFR, LIP, ADIFF ####[place] [address] [place], [place] [address] Basophils/100 WBC (Bld) 0.4 % Normal 0.0-2.5 [facility] Comment on above: Performed By: #### C TRIPP CHAVEZ, ANEU, CBC, TROPHS, GFR, LIP, ADIFF ####[facility] [place], [place] [address] Eosinophil, Absolute 0.6 10 3/mcL Normal 0.0-0.7 [facility] Comment on above: Performed By: #### C TRIPP CHAVEZ, ANEU, CBC, TROPHS, GFR, LIP, ADIFF ####[facility] [place], [place] [address] Eosinophils/100 WBC (Bld) 4.8 % Normal 0.0-6.0 [facility] Comment on above: Performed By: #### C TRIPP CHAVEZ, ANEU, CBC, TROPHS, GFR, LIP, ADIFF ####[address] [address] Lymphocyte, Absolute 1.8 10 3/mcL Normal 0.9-4.3 [facility] Comment on above: Performed By: #### C TRIPP CHAVEZ, ANEU, CBC, TROPHS, GFR, LIP, ADIFF ####[place] [address] [place], [place] [address] Lymphocytes/100 WBC (Bld) 15.5 % Low 20.0-40.0 [facility] Comment on above: Performed By: #### C TRIPP CHAVEZ, ANEU, CBC, TROPHS, GFR, LIP, ADIFF ####[place] [address] [place], [place] [address] Monocyte, Absolute 0.6 10 3/mcL Normal 0.1-1.4 [facility] Comment on above: Performed By: #### C TRIPP CHAVEZ, ANEU, CBC, TROPHS, GFR, LIP, ADIFF ####[place] [address] [address] Monocytes/100 WBC (Bld) 4.7 % Normal 2.0-13.0 [facility] Comment on above: Performed By: #### C TRIPP CHAVEZ, ANEU, CBC, TROPHS, GFR, LIP, ADIFF ####[facility] [address] [place], [place] [address] Neutrophils/100 WBC (Bld) 74.6 % Normal 50.0-75.0 [facility] Comment on above: Performed By: #### C TRIPP CHAVEZ, ANEU, CBC, TROPHS, GFR, LIP, ADIFF ####[place] [address] [place], [place] [address] .GFRon 07-16-2025 Estimated Glomerular Filtration Rate 108 ml/min/1.73sqm Normal [facility] Comment on above: Result Comment: Stages [...] ANEU, CBC, TROPHS, GFR, LIP, ADIFF ####[facility] [address] [place], [place] [address] .MDWon 07-16-2025 Monocyte Distribution Width 17.68 Normal 0.00-20.00 [facility] Comment on above: Result Comment: For ED adult patients suspected of sepsis, MDW<=20.0 does not rule out sepsis or risk of sepsis Performed By: #### C TRIPP CHAVEZ, ANEU, CBC, TROPHS, GFR, LIP, ADIFF ####[place] [address] [place], [place] [address] .NEUABSon 07-16-2025 Neutrophil, Absolute 8.8 10 3/mcL High 2.3-8.1 [facility] Comment on above: Performed By: #### C TRIPP CHAVEZ, ANEU, CBC, TROPHS, GFR, LIP, ADIFF ####[facility] [address] [place], [place] [address] CBCon 07-16-2025 Erythrocyte distribution width (RBC) [Ratio] 13.3 % Normal 11.5-15.5 [facility] Comment on above: Performed By: #### C TRIPP CHAVEZ, ANEU, CBC, TROPHS, GFR, LIP, ADIFF ####[place] [address] [place] [id number] Hematocrit (Bld) [Volume fraction] 39.3 % Normal 34.0-46.0 [facility] Comment on above: Performed By: #### C TRIPP CHAVEZ, ANEU, CBC, TROPHS, GFR, LIP, ADIFF ####[place] [address] [place] [id number] Hgb 13.2 G/dL Normal 12.0-16.0 [facility] Comment on above: Performed By: #### C TRIPP CHAVEZ, ANEU, CBC, TROPHS, GFR, LIP, ADIFF ####[place] [address] [place], [place] [address] MCH (RBC) [Entitic mass] 30.8 pg Normal 27.0-33.0 [facility] Comment on above: Performed By: #### C TRIPP CHAVEZ, ANEU, CBC, TROPHS, GFR, LIP, ADIFF ####[facility] [address] [place], [place] [address] MCHC 33.5 G/dL Normal 32.0-36.0 [facility] Comment on above: Performed By: #### C TRIPP CHAVEZ, ANEU, CBC, TROPHS, GFR, LIP, ADIFF ####[facility] [address] [place], [place] [address] MCV (RBC) [Entitic vol] 92.0 fL Normal 80.0-99.0 [facility] Comment on above: Performed By: #### C TRIPP CHAVEZ, ANEU, CBC, TROPHS, GFR, LIP, ADIFF ####[place] [address] [place], [place] [address] Platelet 241 10 3/mcL Normal 150-450 [facility] Comment on above: Performed By: #### C TRIPP CHAVEZ, ANEU, CBC, TROPHS, GFR, LIP, ADIFF ####[facility] [place], [place] [address] Platelet mean volume (Bld) [Entitic vol] 9.3 fL Normal 6.6-10.5 [facility] Comment on above: Performed By: #### C TRIPP CHAVEZ, ANEU, CBC, TROPHS, GFR, LIP, ADIFF ####[facility] [address] [place], [place] [address] RBC 4.28 10 6/mcL Normal 4.10-5.30 [facility] Comment on above: Performed By: #### C TRIPP CHAVEZ, ANEU, CBC, TROPHS, GFR, LIP, ADIFF ####[facility] [address] [place], [place] [address] WBC 11.8 10 3/mcL High 4.5-10.8 [facility] Comment on above: Performed By: #### C TRIPP CHAVEZ, SHELBY, CBC, TROPHS, GFR, LIP, ADIFF ####[facility] [address] [place], [place] [address] CMPon 07-16-2025 Albumin Level 3.4 G/dL Low 3.5-5.0 [facility] Comment on above: Performed By: #### C TRIPP CHAVEZ, SHELBY, CBC, TROPHS, GFR, LIP, ADIFF ####[facility] [address] [place], [place] [address] Albumin/Globulin [Mass ratio] 0.9 {ratio} Low 1.1-2.5 [facility] Comment on above: Performed By: #### C TRIPP CHAVEZ, SHELBY, CBC, TROPHS, GFR, LIP, ADIFF ####[facility] [address] [place], [place] [address] ALP [Catalytic activity/Vol] 126 U/L Normal 40-135 [facility] Comment on above: Performed By: #### C TRIPP CHAVEZ, SHELBY, CBC, TROPHS, GFR, LIP, ADIFF ####[facility] [address] [place] [id number] ALT [Catalytic activity/Vol] 31 U/L Normal 14-59 [facility] Comment on above: Performed By: #### C TRIPP CHAVEZ, SHELBY, CBC, TROPHS, GFR, LIP, ADIFF ####[facility] [address] [place] [phone] AST [Catalytic activity/Vol] 17 U/L Normal 10-40 [facility] Comment on above: Performed By: #### C TRIPP CHAVEZ, SHELBY, CBC, TROPHS, GFR, LIP, ADIFF ####[facility] [address] [place] [id number] Bili Total 0.2 mg/dL Normal 0.2-1.0 [facility] Comment on above: Result Comment: Use of this assay is not recommended for patients undergoing treatment with eltrombopag due to the potential for falsely elevated results. Performed By: #### C TRIPP CHAVEZ, ANEU, CBC, TROPHS, GFR, LIP, ADIFF ####[place] [address] [place], [place] [address] BUN/Creatinine Ratio 15 ratio Normal 7-27 [facility] Comment on above: Performed By: #### C TRIPP CHAVEZ, ANEU, CBC, TROPHS, GFR, LIP, ADIFF ####[place] [address] [place], [place] [address] Calcium [Mass/Vol] 8.8 mg/dL Normal 8.4-10.2 [facility] Comment on above: Performed By: #### C TRIPP CHAVEZ, ANEU, CBC, TROPHS, GFR, LIP, ADIFF ####[address] [address] Chloride [Moles/Vol] 101 mmol/L Normal 98-107 [facility] Comment on above: Performed By: #### C TRIPP CHAVEZ, ANEU, CBC, TROPHS, GFR, LIP, ADIFF ####[facility] [address] [address] CO2 [Moles/Vol] 27 mmol/L Normal 22-29 [facility] Comment on above: Performed By: #### C TRIPP CHAVEZ, ANEU, CBC, TROPHS, GFR, LIP, ADIFF ####[facility] [address] [address] Creatinine [Mass/Vol] 0.61 mg/dL Normal 0.51-0.95 [facility] Comment on above: Performed By: #### C TRIPP CHAVEZ, ANEU, CBC, TROPHS, GFR, LIP, ADIFF ####[place] [address] [place], [place] [address] Electrolyte Balance 10.0 mEq/L Normal 4.0-15.0 [facility] Comment on above: Performed By: #### C TRIPP CHAVEZ, ANEU, CBC, TROPHS, GFR, LIP, ADIFF ####[address] [address] Globulin 3.9 G/dL Normal 2.7-4.4 [facility] Comment on above: Performed By: #### C TRIPP CHAVEZ, ANEU, CBC, TROPHS, GFR, LIP, ADIFF ####[facility] [place], [place] [address] Glucose [Mass/Vol] 313 mg/dL High 70-105 [facility] Comment on above: Performed By: #### C TRIPP CHAVEZ, ANEU, CBC, TROPHS, GFR, LIP, ADIFF ####[facility] [place], [place] [address] Potassium [Moles/Vol] 3.9 mmol/L Normal 3.5-5.1 [facility] Comment on above: Performed By: #### C TRIPP CHAVEZ, ANEU, CBC, TROPHS, GFR, LIP, ADIFF ####[place] [address] [place], [place] [address] Sodium [Moles/Vol] 138 mmol/L Normal 136-145 [facility] Comment on above: Performed By: #### C TRIPP CHAVEZ, ANEU, CBC, TROPHS, GFR, LIP, ADIFF ####[facility] [place], [place] [address] Total Protein 7.3 G/dL Normal 6.4-8.2 [facility] Comment on above: Performed By: #### C TRIPP CHAVEZ, ANEU, CBC, TROPHS, GFR, LIP, ADIFF ####[facility] [place], [place] [address] Urea nitrogen [Mass/Vol] 9 mg/dL Normal 7-18 [facility] Comment on above: Performed By: #### C TRIPP CHAVEZ, ANEU, CBC, TROPHS, GFR, LIP, ADIFF ####[facility] [place], [place] [address] CT ABD/PELVIS W/ IV CONTRAST ONLYon 07-16-2025 CT ABD/PELVIS W/ IV CONTRAST ONLY ORIGINAL EXAMINATION: CT OF THE ABDOMEN AND PELVIS WITH [id number] 2:19 pm TECHNIQUE: CT of the abdomen [...] PM Ordering Provider: JERICHO SULTANA RP Normal [facility] LABORATORYOrdered By: Blanka Singletary on 07-16-2025 Glucose [Mass/Vol] 119 mg/dL High 70 - 110 mg/dL [facility] LABORATORYOrdered By: Rae Ji on 07-16-2025 [...] ng/L Male: 0-76 ng/L Testing performed on [employer] using a homogeneous sandwich chemiluminescent immunoassay based on [employer] technology. Urea nitrogen [Mass/Vol] 9 mg/dL Normal 7 - 18 mg/dL AO ADM SS Urea nitrogen/Creatinine [Mass ratio] 15 ratio Normal 7 - 27 ratio AO ADM SS WBC (Bld) [#/Vol] 11.8 103/mcL High 4.5 - 10.8 10^3/mcL AO Workflow SS LIPon 07-16-2025 Lipase Level 43 U/L Normal 16-77 [facility] Comment on above: Performed By: #### C TRIPP CHAVEZ, ANEU, CBC, TROPHS, GFR, LIP, ADIFF ####[facility] [address] [place], [place] [address] TROPHSon 07-16-2025 High Sensitivity Troponin I 4 ng/L Normal 0-51 [facility] Comment on above: Result Comment: High Sensitive Troponin I Reference Ranges: Female: 0-51 ng/L Male: 0-76 ng/L Testing performed on [employer] using a homogeneous sandwich chemiluminescent immunoassay based on [employer] technology. Performed By: #### C TRIPP CHAVEZ, ANEU, CBC, TROPHS, GFR, LIP, ADIFF ####[facility] [address] [place], [place] [address] UAon 07-16-2025 Color (U) Yellow Normal Yellow [facility] Comment on above: Performed By: #### U A ####[facility] [address] [place], [place] [address] Glucose (U) [Mass/Vol] 250 mg/dL Abnormal Negative [facility] Comment on above: Performed By: #### U A ####[facility] [address] [place], [place] [address] Ketones Ql (U) Negative Normal Negative [facility] Comment on above: Performed By: #### U A ####[facility] [address] [place], [place] [address] UA Appear Clear Normal Clear [facility] Comment on above: Performed By: #### U A ####[facility] [address] [place], [place] [address] UA Blood Negative Normal Negative [facility] Comment on above: Performed By: #### U A ####[place] [address] UA Leuk Est Negative Normal Negative [facility] Comment on above: Performed By: #### U A ####[place] [address] [place] [address] UA Nitrite Negative Normal Negative [facility] Comment on above: Performed By: #### U A ####[place] [address] [place] [address] UA pH 6.0 Normal 5.0 - 8.0 [facility] Comment on above: Performed By: #### U A ####[facility] [address] [place] [address] UA Protein Negative Normal Negative [facility] Comment on above: Performed By: #### U A ####[place] [address] [place] [address] UA Spec Grav 1.010 Abnormal 1.015-1.025 [facility] Comment on above: Performed By: #### U A ####[place] [address] UA Specimen Type Clean Catch Normal [facility] Comment on above: Performed By: #### U A ####[place] [address] UA Urobilinogen 0.2 E.U./dL Normal 0.2-1.0 [facility] Comment on above: Performed By: #### U A ####[place] [address] Urobilinogen (U) [Mass/Vol] Negative Normal Negative [facility] Comment on above: Performed By: #### U A ####[place] [address] .Auto Diffon 05-03-2025 Basophil, Absolute 0.1 10 3/mcL Normal 0.0-0.3 [facility] Comment on above: Performed By: #### A BRENDON, CBC, MDW, GFR, ADIFF, LIP, CMP ####[facility] [address] [place] [address] Basophils/100 WBC (Bld) 0.5 % Normal 0.0-2.5 [facility] Comment on above: Performed By: #### A BRENDON, CBC, MDW, GFR, ADIFF, LIP, CMP ####[address] [address] Eosinophil, Absolute 0.4 10 3/mcL Normal 0.0-0.7 [facility] Comment on above: Performed By: #### A BRENDON, CBC, MDW, GFR, ADIFF, LIP, CMP ####[address] [address] Eosinophils/100 WBC (Bld) 3.3 % Normal 0.0-6.0 [facility] Comment on above: Performed By: #### A BRENDON, CBC, MDW, GFR, ADIFF, LIP, CMP ####[address] [address] Lymphocyte, Absolute 2.7 10 3/mcL Normal 0.9-4.3 [facility] Comment on above: Performed By: #### A BRENDON, CBC, MDW, GFR, ADIFF, LIP, CMP ####[address] [address] Lymphocytes/100 WBC (Bld) 23.4 % Normal 20.0-40.0 [facility] Comment on above: Performed By: #### A BRENDON, CBC, MDW, GFR, ADIFF, LIP, CMP ####[address] [address] Monocyte, Absolute 0.6 10 3/mcL Normal 0.1-1.4 [facility] Comment on above: Performed By: #### A BRENDON, CBC, MDW, GFR, ADIFF, LIP, CMP ####[address] [address] Monocytes/100 WBC (Bld) 5.5 % Normal 2.0-13.0 [facility] Comment on above: Performed By: #### A BRENDON, CBC, MDW, GFR, ADIFF, LIP, CMP ####[address] [address] Neutrophils/100 WBC (Bld) 67.3 % Normal 50.0-75.0 [facility] Comment on above: Performed By: #### A BRENDON, CBC, MDW, GFR, ADIFF, LIP, CMP ####[facility] [place], [place] [address] .GFRon 05-03-2025 Estimated Glomerular Filtration Rate 74 ml/min/1.73sqm Normal [facility] Comment on above: Result Comment: Stages [...] BRENDON, CBC, MDW, GFR, ADIFF, LIP, CMP ####[address] [address] .MDWon 05-03-2025 Monocyte Distribution Width 18.33 Normal 0.00-20.00 [facility] Comment on above: Result Comment: For ED adult patients suspected of sepsis, MDW<=20.0 does not rule out sepsis or risk of sepsis Performed By: #### A BRENDON, CBC, MDW, GFR, ADIFF, LIP, CMP ####[place] [address] [place], [place] [address] .NEUABSon 05-03-2025 Neutrophil, Absolute 7.7 10 3/mcL Normal 2.3-8.1 [facility] Comment on above: Performed By: #### A BRENDON, CBC, MDW, GFR, ADIFF, LIP, CMP ####[place] [address] [place], [place] [address] CBCon 05-03-2025 Erythrocyte distribution width (RBC) [Ratio] 13.7 % Normal 11.5-15.5 [facility] Comment on above: Performed By: #### A BRENDON, CBC, MDW, GFR, ADIFF, LIP, CMP ####[place] [address] Hematocrit (Bld) [Volume fraction] 42.5 % Normal 34.0-46.0 [facility] Comment on above: Performed By: #### A BRENDON, CBC, MDW, GFR, ADIFF, LIP, CMP ####[place] [address] Hgb 14.0 G/dL Normal 12.0-16.0 [facility] Comment on above: Performed By: #### A BRENDON, CBC, MDW, GFR, ADIFF, LIP, CMP ####[place] [address] MCH (RBC) [Entitic mass] 30.1 pg Normal 27.0-33.0 [facility] Comment on above: Performed By: #### A BRENDON, CBC, MDW, GFR, ADIFF, LIP, CMP ####[place] [address] MCHC 33.0 G/dL Normal 32.0-36.0 [facility] Comment on above: Performed By: #### A BRENDON, CBC, MDW, GFR, ADIFF, LIP, CMP ####[place] [address] MCV (RBC) [Entitic vol] 91.4 fL Normal 80.0-99.0 [facility] Comment on above: Performed By: #### A BRENDON, CBC, MDW, GFR, ADIFF, LIP, CMP ####[place] [id number] Platelet 227 10 3/mcL Normal 150-450 [facility] Comment on above: Performed By: #### A BRENDON, CBC, MDW, GFR, ADIFF, LIP, CMP ####[place] [address] Platelet mean volume (Bld) [Entitic vol] 8.8 fL Normal 6.6-10.5 [facility] Comment on above: Performed By: #### A BRENDON, CBC, MDW, GFR, ADIFF, LIP, CMP ####[facility] [address] [place], [place] [address] RBC 4.65 10 6/mcL Normal 4.10-5.30 [facility] Comment on above: Performed By: #### A BRENDON, CBC, MDW, GFR, ADIFF, LIP, CMP ####[facility] [address] [place] [id number] WBC 11.5 10 3/mcL High 4.5-10.8 [facility] Comment on above: Performed By: #### A BRENDON, CBC, MDW, GFR, ADIFF, LIP, CMP ####[address] [address] CMPon 05-03-2025 Albumin Level 3.8 G/dL Normal 3.5-5.0 [facility] Comment on above: Performed By: #### A BRENDON, CBC, MDW, GFR, ADIFF, LIP, CMP ####[place] [id number] Albumin/Globulin [Mass ratio] 1.0 {ratio} Low 1.1-2.5 [facility] Comment on above: Performed By: #### A BRENDON, CBC, MDW, GFR, ADIFF, LIP, CMP ####[place] [id number] ALP [Catalytic activity/Vol] 133 U/L Normal 40-135 [facility] Comment on above: Performed By: #### A BRENDON, CBC, MDW, GFR, ADIFF, LIP, CMP ####[address] [address] ALT [Catalytic activity/Vol] 39 U/L Normal 14-59 [facility] Comment on above: Performed By: #### A BRENDON, CBC, MDW, GFR, ADIFF, LIP, CMP ####[address] [address] AST [Catalytic activity/Vol] 23 U/L Normal 10-40 [facility] Comment on above: Performed By: #### A BRENDON, CBC, MDW, GFR, ADIFF, LIP, CMP ####[address] [address] Bili Total 0.2 mg/dL Normal 0.2-1.0 [facility] Comment on above: Result Comment: Use of this assay is not recommended for patients undergoing treatment with eltrombopag due to the potential for falsely elevated results. Performed By: #### A BRENDON, CBC, MDW, GFR, ADIFF, LIP, CMP ####[place] [id number] [place], [place] [address] BUN/Creatinine Ratio 17 ratio Normal 7-27 [facility] [facility] Comment on above: Performed By: #### A BRENDON, CBC, MDW, GFR, ADIFF, LIP, CMP ####[address] [address] Calcium [Mass/Vol] 8.9 mg/dL Normal 8.4-10.2 [facility] Comment on above: Performed By: #### A BRENDON, CBC, MDW, GFR, ADIFF, LIP, CMP ####[address] [address] Chloride [Moles/Vol] 98 mmol/L Normal 98-107 [facility] Comment on above: Performed By: #### A BRENDON, CBC, MDW, GFR, ADIFF, LIP, CMP ####[address] [address] CO2 [Moles/Vol] 24 mmol/L Normal 22-29 [facility] Comment on above: Performed By: #### A BRENDON, CBC, MDW, GFR, ADIFF, LIP, CMP ####[address] [address] Creatinine [Mass/Vol] 0.93 mg/dL Normal 0.51-0.95 [facility] Comment on above: Performed By: #### A BRENDON, CBC, MDW, GFR, ADIFF, LIP, CMP ####[address] [address] Electrolyte Balance 11.0 mEq/L Normal 4.0-15.0 [facility] Comment on above: Performed By: #### A BRENDON, CBC, MDW, GFR, ADIFF, LIP, CMP ####[place] [address] [place], [place] [address] Globulin 3.9 G/dL Normal 2.7-4.4 [facility] Comment on above: Performed By: #### A BRENDON, CBC, MDW, GFR, ADIFF, LIP, CMP ####[address] [address] Glucose [Mass/Vol] 447 mg/dL Critically abnormal 70-105 [facility] Comment on above: Performed By: #### A BRENDON, CBC, MDW, GFR, ADIFF, LIP, CMP ####[address] [address] Potassium [Moles/Vol] 4.1 mmol/L Normal 3.5-5.1 [facility] Comment on above: Performed By: #### A BRENDON, CBC, MDW, GFR, ADIFF, LIP, CMP ####[address] [address] Sodium [Moles/Vol] 133 mmol/L Low 136-145 [facility] Comment on above: Performed By: #### A BRENDON, CBC, MDW, GFR, ADIFF, LIP, CMP ####[address] [address] Total Protein 7.7 G/dL Normal 6.4-8.2 [facility] Comment on above: Performed By: #### A BRENDON, CBC, MDW, GFR, ADIFF, LIP, CMP ####[address] [address] Urea nitrogen [Mass/Vol] 16 mg/dL Normal 7-18 [facility] Comment on above: Performed By: #### A BRENDON, CBC, MDW, GFR, ADIFF, LIP, [facility] ####[address] [place], [place] [address] CT ABD/PELVIS W/ IV CONTRAST ONLYon 05-03-2025 [...] 11:00:50 PM Ordering Provider: HARITHA SYLVESTER Normal [facility] LABORATORYOrdered By: Kamala Foster on 05-03-2025 Glucose [Mass/Vol] 289 mg/dL High 70 - 110 mg/dL [facility] LABORATORYOrdered By: SYSTEM SYSTEM on 05-03-2025 [...] 05-03-2025 Lipase Level 65 U/L Normal 16-77 [facility] Comment on above: Performed By: #### A BRENDON, CBC, MDW, GFR, ADIFF, LIP, CMP ####[address] [place], [place] [address] UAon 05-03-2025 Color (U) Yellow Normal [facility] Comment on above: Performed By: #### U A ####[address] [place], [place] [address] Glucose (U) [Mass/Vol] mg/dL Abnormal Negative [facility] Comment on above: Performed By: #### U A ####[address] [place], [place] [address] Ketones Ql (U) Negative Normal Negative [facility] Comment on above: Performed By: #### U A ####[place] [address] [place], [place] [address] UA Appear Clear Normal Clear [facility] Comment on above: Performed By: #### U A ####[address] [place], [place] [address] UA Blood Negative Normal Negative [facility] Comment on above: Performed By: #### U A ####[address] [place], [place] [address] UA Leuk Est Negative Normal Negative [facility] Comment on above: Performed By: #### U A ####[address] [address] UA Nitrite Negative Normal Negative [facility] Comment on above: Performed By: #### U A ####[address] [place] [address] UA pH 6.0 Normal 5.0 - 8.0 [facility] Comment on above: Performed By: #### U A ####[place] [address] [place] [address] UA Protein Negative Normal Negative [facility] Comment on above: Performed By: #### U A ####[address] [place] [address] UA Spec Grav 1.015 Normal 1.015-1.025 [facility] Comment on above: Performed By: #### U A ####[address] [place] [address] UA Specimen Type Not Given Normal [facility] Comment on above: Performed By: #### U A ####[address] [place] [address] UA Urobilinogen 0.2 E.U./dL Normal 0.2-1.0 [facility] Comment on above: Performed By: #### U A ####[place] [address] [place] [address] Urobilinogen (U) [Mass/Vol] Negative Normal Negative [facility] Comment on above: Performed By: #### U A ####[place] [address] [place] [address] XR KNEE THREE VIEWS LEFTon 0 04-30-2025 [...] 04/30/2025 5:01:40 PM Ordering Provider: LIBBY SUAZO [facility] XR FOOT MINIMUM 3 VIEWS CAPRICE [place] [...] 03/15/2025 3:52:39 PM Ordering Provider: ABI LOPEZ [facility] XR HAND MINIMUM 3 VIEWS LEFT on [...] 2:19:56 PM Ordering Provider: ABI LOPEZ Normal [facility] APOBon 03-06-2025 Apolipoprotein B [Mass/Vol] 125 mg/dL High <90 [facility] Comment on above: Result Comment: Jessie rable < 90 Borderline High 90 - 99 High 100 - 130 Very High >130 ASCVD RISK THERAPEUTIC TARGET CATEGORY APO B (mg/dL) Very High Risk <80 (if extreme risk <70) High Risk <90 Moderate Risk <90 Performed At: [facility] [id number] Vaibhav Caba MD Ph:[phone] Performed By: #### A BRENDON, CBC, A1C, 115674, LIPID, CMP, [id number], TSHR, MG, GFR, VIDH, FERR, ADIFF, FES ####[facility] [place], [place] [address]#### B12 ####[address] [address] LIPOAon 03-06-2025 Lipoprotein a [Moles/Vol] 9.0 nmol/L Normal <75.0 [facility] Comment on above: Result Comment: This [...] factors on Lp(a) across ethnicities. Performed At: [facility] [id number] Ryan Stark PhD Ph:[phone] Performed By: #### A BRENDON, CBC, A1C, 737594, LIPID, CMP, [id number], TSHR, MG, GFR, VIDH, FERR, ADIFF, FES ####[place] [address]#### B12 ####[place] [address] B12on 03-05-2025 Cobalamin (Vitamin B12) [Mass/Vol] 1989 pg/mL High 211-911 [facility] Comment on above: Performed By: #### A BRENDON, CBC, A1C, 203556, LIPID, CMP, [id number], TSHR, MG, GFR, VIDH, FERR, ADIFF, FES ####[place] [address]#### B12 ####[place] [address] .Auto Diffon 03-04-2025 Basophil, Absolute 0.1 10 3/mcL Normal 0.0-0.3 [facility] Comment on above: Performed By: #### A BRENDON, CBC, A1C, 234071, LIPID, CMP, [id number], TSHR, MG, GFR, VIDH, FERR, ADIFF, FES ####[place] [address]#### B12 ####[place] [address] Basophils/100 WBC (Bld) 0.8 % Normal 0.0-2.5 [facility] Comment on above: Performed By: #### A BRENDON, CBC, A1C, 717487, LIPID, CMP, [id number], TSHR, MG, GFR, VIDH, FERR, ADIFF, FES ####[place] [address]#### B12 ####[address] [address] Eosinophil, Absolute 0.6 10 3/mcL Normal 0.0-0.7 [facility] Comment on above: Performed By: #### A BRENDON, CBC, A1C, 747223, LIPID, CMP, [id number], TSHR, MG, GFR, VIDH, FERR, ADIFF, FES ####[place] [address]#### B12 ####[address] [address] Eosinophils/100 WBC (Bld) 5.9 % Normal 0.0-6.0 [facility] Comment on above: Performed By: #### A BRENDON, CBC, A1C, 424058, LIPID, CMP, [id number], TSHR, MG, GFR, VIDH, FERR, ADIFF, FES ####[place] [address]#### B12 ####[address] [address] Lymphocyte, Absolute 2.9 10 3/mcL Normal 0.9-4.3 [facility] Comment on above: Performed By: #### A BRENDON, CBC, A1C, 996218, LIPID, CMP, [id number], TSHR, MG, GFR, VIDH, FERR, ADIFF, FES ####[place] [address]#### B12 ####[address] [address] Lymphocytes/100 WBC (Bld) 27.8 % Normal 20.0-40.0 [facility] Comment on above: Performed By: #### A BRENDON, CBC, A1C, 386478, LIPID, CMP, [id number], TSHR, MG, GFR, VIDH, FERR, ADIFF, FES ####[address] [address]#### B12 ####[address] [address] Monocyte, Absolute 0.6 10 3/mcL Normal 0.1-1.4 [facility] Comment on above: Performed By: #### A BRENDON, CBC, A1C, 703240, LIPID, CMP, [id number], TSHR, MG, GFR, VIDH, FERR, ADIFF, FES ####[place] [address]#### B12 ####[address] [address] Monocytes/100 WBC (Bld) 6.2 % Normal 2.0-13.0 [facility] Comment on above: Performed By: #### A BRENDON, CBC, A1C, 120890, LIPID, CMP, [id number], TSHR, MG, GFR, VIDH, FERR, ADIFF, FES ####[place] [address]#### B12 ####[address] [address] Neutrophils/100 WBC (Bld) 59.3 % Normal 50.0-75.0 [facility] Comment on above: Performed By: #### A BRENDON, CBC, A1C, 552382, LIPID, CMP, [id number], TSHR, MG, GFR, VIDH, FERR, ADIFF, FES ####[place] [address]#### B12 ####[address] [address] .GFRon 03-04-2025 Estimated Glomerular Filtration Rate 92 ml/min/1.73sqm Normal [facility] Comment on above: Result Comment: Stages [...] Performed By: #### A BRENDON, CBC, A1C, 911835, LIPID, CMP, [id number], TSHR, MG, GFR, VIDH, FERR, ADIFF, FES ####[address] [address]#### B12 ####[address] [address] .NEUABSon 03-04-2025 Neutrophil, Absolute 6.1 10 3/mcL Normal 2.3-8.1 [facility] Comment on above: Performed By: #### A BRENDON, CBC, A1C, 339839, LIPID, CMP, [id number], TSHR, MG, GFR, VIDH, FERR, ADIFF, FES ####[address] [address]#### B12 ####[place] [address] A1Con 03-04-2025 Glucose [Mass/Vol] 283 mg/dL Normal [facility] Comment on above: Result Comment: Payton mated Average Glucose calculated by equation ((28.7xA1C)-46.7) Estimated average glucose (eAG) is a calculated value from Hemoglobin A1C and is outreach representative of the average blood glucose level in the last 2-3 month period. Normal range: less than 114 mg/dL Performed By: #### A BRENDON, CBC, A1C, 426375, LIPID, CMP, [id number], TSHR, MG, GFR, VIDH, FERR, ADIFF, FES ####[address] [address]#### B12 ####[address] [address] HbA1c (Bld) [Mass fraction] 11.5 % High 4.3-6.4 [facility] Comment on above: Performed By: #### A BRENDON, CBC, A1C, 755673, LIPID, CMP, [id number], TSHR, MG, GFR, VIDH, FERR, ADIFF, FES ####[address] [address]#### B12 ####[address] [address] CBCon 03-04-2025 Erythrocyte distribution width (RBC) [Ratio] 13.1 % Normal 11.5-15.5 [facility] Comment on above: Performed By: #### A BRENDON, CBC, A1C, 233017, LIPID, CMP, [id number], TSHR, MG, GFR, VIDH, FERR, ADIFF, FES ####[place] [address]#### B12 ####[address] [address] Hematocrit (Bld) [Volume fraction] 41.4 % Normal 34.0-46.0 [facility] Comment on above: Performed By: #### A BRENDON, CBC, A1C, 549498, LIPID, CMP, [id number], TSHR, MG, GFR, VIDH, FERR, ADIFF, FES ####[place] [address]#### B12 ####[place] [address] Hgb 14.1 G/dL Normal 12.0-16.0 [facility] Comment on above: Performed By: #### A BRENDON, CBC, A1C, 705023, LIPID, CMP, [id number], TSHR, MG, GFR, VIDH, FERR, ADIFF, FES ####[address] [address]#### B12 ####[address] [address] MCH (RBC) [Entitic mass] 31.1 pg Normal 27.0-33.0 [facility] Comment on above: Performed By: #### A BRENDON, CBC, A1C, 144464, LIPID, CMP, [id number], TSHR, MG, GFR, VIDH, FERR, ADIFF, FES ####[place] [address]#### B12 ####[place] [address] MCHC 34.0 G/dL Normal 32.0-36.0 [facility] Comment on above: Performed By: #### A BRENDON, CBC, A1C, 975287, LIPID, CMP, [id number], TSHR, MG, GFR, VIDH, FERR, ADIFF, FES ####[place] [address]#### B12 ####[place] [address] MCV (RBC) [Entitic vol] 91.3 fL Normal 80.0-99.0 [facility] Comment on above: Performed By: #### A BRENDON, CBC, A1C, 369039, LIPID, CMP, [id number], TSHR, MG, GFR, VIDH, FERR, ADIFF, FES ####[place] [address]#### B12 ####[place] [address] Platelet 220 10 3/mcL Normal 150-450 [facility] Comment on above: Performed By: #### A BRENDON, CBC, A1C, 166553, LIPID, CMP, [id number], TSHR, MG, GFR, VIDH, FERR, ADIFF, FES ####[place] [address]#### B12 ####[place] [address] Platelet mean volume (Bld) [Entitic vol] 9.8 fL Normal 6.6-10.5 [facility] Comment on above: Performed By: #### A BRENDON, CBC, A1C, 878282, LIPID, CMP, [id number], TSHR, MG, GFR, VIDH, FERR, ADIFF, FES ####[place] [address]#### B12 ####[place] [address] RBC 4.53 10 6/mcL Normal 4.10-5.30 [facility] Comment on above: Performed By: #### A BRENDON, CBC, A1C, 169785, LIPID, CMP, [id number], TSHR, MG, GFR, VIDH, FERR, ADIFF, FES ####[place] [address]#### B12 ####[place] [address] WBC 10.3 10 3/mcL Normal 4.5-10.8 [facility] Comment on above: Performed By: #### A BRENDON, CBC, A1C, 938273, LIPID, CMP, [id number], TSHR, MG, GFR, VIDH, FERR, ADIFF, FES ####[place] [address]#### B12 ####[place] [address] CMPon 03-04-2025 Albumin Level 3.8 G/dL Normal 3.5-5.0 [facility] Comment on above: Performed By: #### A BRENDON, CBC, A1C, 394847, LIPID, CMP, [id number], TSHR, MG, GFR, VIDH, FERR, ADIFF, FES ####[place] [address]#### B12 ####[place] [address] Albumin/Globulin [Mass ratio] 0.8 {ratio} Low 1.1-2.5 [facility] Comment on above: Performed By: #### A BRENDON, CBC, A1C, 314545, LIPID, CMP, [id number], TSHR, MG, GFR, VIDH, FERR, ADIFF, FES ####[place] [address]#### B12 ####[place] [address] ALP [Catalytic activity/Vol] 136 U/L High 40-135 [facility] Comment on above: Performed By: #### A BRENDON, CBC, A1C, 930722, LIPID, CMP, [id number], TSHR, MG, GFR, VIDH, FERR, ADIFF, FES ####[place] [id number]#### B12 ####[address] [address] ALT [Catalytic activity/Vol] 43 U/L Normal 14-59 [facility] Comment on above: Performed By: #### A BRENDON, CBC, A1C, 093048, LIPID, CMP, [id number], TSHR, MG, GFR, VIDH, FERR, ADIFF, FES ####[place] [address]#### B12 ####[place] [address] AST [Catalytic activity/Vol] 32 U/L Normal 10-40 [facility] Comment on above: Performed By: #### A BRENDON, CBC, A1C, 399804, LIPID, CMP, [id number], TSHR, MG, GFR, VIDH, FERR, ADIFF, FES ####[place] [address]#### B12 ####[place] [address] Bili Total 0.3 mg/dL Normal 0.2-1.0 [facility] Comment on above: Result Comment: Use of this assay is not recommended for patients undergoing treatment with eltrombopag due to the potential for falsely elevated results. Performed By: #### A BRENDON, CBC, A1C, 916855, LIPID, CMP, [id number], TSHR, MG, GFR, VIDH, FERR, ADIFF, FES ####[place] [address]#### B12 ####[place] [address] BUN/Creatinine Ratio 14 ratio Normal 7-27 [facility] Comment on above: Performed By: #### A BRENDON, CBC, A1C, 486500, LIPID, CMP, [id number], TSHR, MG, GFR, VIDH, FERR, ADIFF, FES ####[place] [address]#### B12 ####[address] [address] Calcium [Mass/Vol] 9.5 mg/dL Normal 8.4-10.2 [facility] Comment on above: Performed By: #### A BRENDON, CBC, A1C, 000236, LIPID, CMP, [id number], TSHR, MG, GFR, VIDH, FERR, ADIFF, FES ####[place] [address]#### B12 ####[place] [address] Chloride [Moles/Vol] 100 mmol/L Normal 98-107 [facility] Comment on above: Performed By: #### A BRENDON, CBC, A1C, 403087, LIPID, CMP, [id number], TSHR, MG, GFR, VIDH, FERR, ADIFF, FES ####[place] [address]#### B12 ####[place] [address] CO2 [Moles/Vol] 27 mmol/L Normal 22-29 [facility] Comment on above: Performed By: #### A BRENDON, CBC, A1C, 000873, LIPID, CMP, [id number], TSHR, MG, GFR, VIDH, FERR, ADIFF, FES ####[place] [address]#### B12 ####[place] [address] Creatinine [Mass/Vol] 0.78 mg/dL Normal 0.51-0.95 [facility] Comment on above: Performed By: #### A BRENDON, CBC, A1C, 396914, LIPID, CMP, [id number], TSHR, MG, GFR, VIDH, FERR, ADIFF, FES ####[place] [address]#### B12 ####[place] [address] Electrolyte Balance 11.0 mEq/L Normal 4.0-15.0 [facility] Comment on above: Performed By: #### A BRENDON, CBC, A1C, 235837, LIPID, CMP, [id number], TSHR, MG, GFR, VIDH, FERR, ADIFF, FES ####[place] [address]#### B12 ####[place] [address] Globulin 4.6 G/dL High 2.7-4.4 [facility] Comment on above: Performed By: #### A BRENDON, CBC, A1C, 431114, LIPID, CMP, [id number], TSHR, MG, GFR, VIDH, FERR, ADIFF, FES ####[place] [address]#### B12 ####[place] [address] Glucose [Mass/Vol] 280 mg/dL High 70-105 [facility] Comment on above: Performed By: #### A BRENDON, CBC, A1C, 321898, LIPID, CMP, [id number], TSHR, MG, GFR, VIDH, FERR, ADIFF, FES ####[place] [address]#### B12 ####[place] [address] Potassium [Moles/Vol] 3.8 mmol/L Normal 3.5-5.1 [facility] Comment on above: Performed By: #### A BRENDON, CBC, A1C, 875580, LIPID, CMP, [id number], TSHR, MG, GFR, VIDH, FERR, ADIFF, FES ####[place] [address]#### B12 ####[place] [address] Sodium [Moles/Vol] 138 mmol/L Normal 136-145 [facility] Comment on above: Performed By: #### A BRENDON, CBC, A1C, 005830, LIPID, CMP, [id number], TSHR, MG, GFR, VIDH, FERR, ADIFF, FES ####[place] [address]#### B12 ####[place] [address] Total Protein 8.4 G/dL High 6.4-8.2 [facility] Comment on above: Performed By: #### A BRENDON, CBC, A1C, 923957, LIPID, CMP, [id number], TSHR, MG, GFR, VIDH, FERR, ADIFF, FES ####[place] [address]#### B12 ####[place] [address] Urea nitrogen [Mass/Vol] 11 mg/dL Normal 7-18 [facility] Comment on above: Performed By: #### A BRENDON, CBC, A1C, 935987, LIPID, CMP, [id number], TSHR, MG, GFR, VIDH, FERR, ADIFF, FES ####[place] [address]#### B12 ####[place] [address] Ruy 03-04-2025 Ferritin [Mass/Vol] 136.0 ng/mL Normal 8.0-252.0 [facility] Comment on above: Performed By: #### A BRENDON, CBC, A1C, 223434, LIPID, CMP, [id number], TSHR, MG, GFR, VIDH, FERR, ADIFF, FES ####[place] [address]#### B12 ####[place] [address] FESon 03-04-2025 Iron [Mass/Vol] 57 ug/dL Normal 50-170 [facility] Comment on above: Performed By: #### A BRENDON, CBC, A1C, 653484, LIPID, CMP, [id number], TSHR, MG, GFR, VIDH, FERR, ADIFF, FES ####[facility] [place], [place] [address]#### B12 ####[place] [address] Iron Sat 17 % Normal [facility] Comment on above: Performed By: #### A BRENDON, CBC, A1C, 963614, LIPID, CMP, [id number], TSHR, MG, GFR, VIDH, FERR, ADIFF, FES ####[address] [address]#### B12 ####[place] [address] TIBC 330 mcg/dL Normal 250-450 [facility] Comment on above: Performed By: #### A BRENDON, CBC, A1C, 976302, LIPID, CMP, [id number], TSHR, MG, GFR, VIDH, FERR, ADIFF, FES ####[place] [address]#### B12 ####[place] [address] LABORATORYOrdered By: SYSTEM SYSTEM on 03-04-2025 25-hydroxyvitamin [...] calculated value from Hemoglobin A1C and is outreach representative of the average blood glucose level [...] 03-04-2025 Cholesterol [Mass/Vol] 210 mg/dL High 0-200 [facility] Comment on above: Result Comment: Chol esterol Reference Interval: Less than 200 Desirable 200-239 Borderline high risk 240 and above High risk Performed By: #### A BRENDON, CBC, A1C, 087061, LIPID, CMP, [id number], TSHR, MG, GFR, VIDH, FERR, ADIFF, FES ####[place] [address]#### B12 ####[address] [address] Cholesterol in HDL [Mass/Vol] 37 mg/dL Low 40-60 [facility] Comment on above: Performed By: #### A BRENDON, CBC, A1C, 861434, LIPID, CMP, [id number], TSHR, MG, GFR, VIDH, FERR, ADIFF, FES ####[place] [address]#### B12 ####[address] [address] Cholesterol in LDL [Mass/Vol] 105 mg/dL Normal 0-130 [facility] Comment on above: Performed By: #### A BRENDON, CBC, A1C, 648206, LIPID, CMP, [id number], TSHR, MG, GFR, VIDH, FERR, ADIFF, FES ####[place] [address]#### B12 ####[address] [address] Triglyceride [Mass/Vol] 340 mg/dL High 0-150 [facility] Comment on above: Result Comment: Trig lyceride Reference Interval: Less than 150 Normal 150-199 Borderline high risk 200-499 High risk 500 or higher Very high risk Performed By: #### A BRENDON, CBC, A1C, 086710, LIPID, CMP, [id number], TSHR, MG, GFR, VIDH, FERR, ADIFF, FES ####[place] [address]#### B12 ####[address] [address] MGon 03-04-2025 Magnesium [Mass/Vol] 2.1 mg/dL Normal 1.8-2.4 [facility] Comment on above: Performed By: #### A BRENDON, CBC, A1C, 725455, LIPID, CMP, [id number], TSHR, MG, GFR, VIDH, FERR, ADIFF, FES ####[place] [address]#### B12 ####[address] [address] TSHRon 03-04-2025 TSH Qn 1.54 m[IU]/L Normal 0.36-3.74 [facility] Comment on above: Performed By: #### A BRENDON, CBC, A1C, 225586, LIPID, CMP, [id number], TSHR, MG, GFR, VIDH, FERR, ADIFF, FES ####[facility] [place], [place] [address]#### B12 ####[place] [address] VIDHon 03-04-2025 Vit. D 25-Hydroxy 22.4 ng/mL Normal [facility] Comment on above: Result Comment: Inte rpretive Values Based on Total 25(OH) Vitamin D: Deficient <20 ng/mL Insufficient 20 - <30 ng/mL Sufficient 30-100 ng/mL Performed By: #### A BRENDON, CBC, A1C, 222146, LIPID, CMP, [id number], TSHR, MG, GFR, VIDH, FERR, ADIFF, FES ####[facility] [place], [place] [address]#### B12 ####[place] [address] ED MED ADMINISTRATION DETAIL on 02-01-2025 ED MED ADMINISTRATION DETAIL Hyperbaric Tech Medication Administration Record [address] [address] [id number] 01/29/2025 Patient: KARLIE GOVEA Sex: Female : [...] Rosaura Palmer R.N. 1 of 1 Normal [facility] ED NURSES CLINICAL NOTEon ED NURSES CLINICAL NOTE Nurse Narrative Nurse Clinical Narrative [address] [address] [id number] 01/29/2025 08:35:00 Patient: KARLIE GOVEA Sex: Female [...] ANN Vanegas R.N. 08:39 01/29/25. Preferred Pharmacy: [facility]. -- 08:49 01/29/25 JO ANN Vanegas R.N. Allergies: no known drug allergies -- 08:40 01/29/25 ANDREAT Ellyn Vanegas R.N. Problems: Cancer. Breast -- 08:41 01/29/25 JO ANN Vanegas R.N. Diabetes Mellitus -- 08:41 01/29/25 ANDREAT Ellyn Vanegas R.N. COPD - Chronic Obstructive Pulmonary Disease -- 08:41 01/29/25 JO ANN Vangeas R.N. Bipolar Disorder -- 08:41 01/29/25 JO [...] R.N. DISPOSITIO (more content not included)... Normal [facility] ED ORDER SHEET (CPOE ONLY)on 02-01-2025 ED ORDER SHEET (CPOE ONLY) Order Sheet Order Sheet [address] [place] [address] [id number] 01/29/2025 Patient: KARLIE GOVEA Sex: Female : [...] Ellyn Molina Natalie Yoder, D.O. R.NMelly RMellyNMelly Child Care Provider 08:38 01/29/2025 08:51 01/29/2025 09:33 01/29/2025 Ellyn Molina Natalie Yoder, D.O. R.NMelly R.NMelly Oxygen titrate to 92% 08:38 01/29/2025 09:33 01/29/2025 Ellyn Molina D.O. RMellyNMelly Pulse Oximeter 08:38 01/29/2025 09:33 01/29/2025 Ellyn Molina D.O. RSierra [Electronically signed by Jericho Hernandez D.O. (02/01/2025 00:50 EDT)] 3 of 3 Normal [facility] ED PHYSICIAN CLINICAL REPORT on 02-01-2025 ED PHYSICIAN CLINICAL REPORT Narrative Physician Clinical Narrative [address] [address] [id number] 01/29/2025 08:35:00 Patient: KARLIE GOVEA Sex: Female [...] 1.50 - 7.10 Final EDT 01/29/2025 10:14 Antelope # 0.65 x10/UL 0.20 - 1.00 Final [...] Final Be (more content not included)... Normal [facility] ED SUPER BILLon 02-01-2025 ED SUPER BILL [address] [address] [id number] 01/29/2025 Patient: KARLIE GOVEA Sex: Female : 1975 Age: 50y Item Facility Professional Category Description Code Code Quantity Fee Total Nurse/E/M EMERGENCY 742909 1 $0.00 $0.00 DEPARTMENT VISIT HIGH/URGENT SEVERITY (83547-21) Nurse/IV/IM/Infusions IM/SQ (31160) 013510 1 $0.00 $0.00 Grand Total $0.00 Providers Jericho Hernandez D.O. Chief Complaint ear pain. Principal Diagnosis Recurrent right otitis media. Depression. Poorly controlled type 2 diabetes with hyperglycemia. 1 of 2 [facility] ICD-10 Codes H66.91: Otitis media, unspecified, right ear F32.9: Major depressive disorder, single episode, unspecified 2 of 2 Normal [facility] ED VISIT SUMMARYon ED VISIT SUMMARY Visit Overview Visit Overview [address] [address] [id number] 01/29/2025 Patient: KARLIE GOVEA Sex: Female : [...] RIGHT OTITIS MEDIA 3 of 3 Normal [facility] ED VITALS FLOW SHEETon 02-01 ED VITALS FLOW SHEET Vitals Vital Sign Flow Sheet [facility] [address] [place] [address] [id number] 01/29/2025 Patient: KARLIE GOVEA Sex: Female : [...] 136/116 122 100 2 of 2 Normal [facility] CBC + DIFFon 01-29-2025 Baso # 0.02 x10EE3/UL Normal 0.00 - 0.10 [facility] Comment on above: Performed By: #### [id number] ####[facility],[address] [place], [place] [address] Basophils/100 WBC (Bld) 0.3 % Normal 0.0 - 2.0 [facility] Comment on above: Performed By: #### 2 96015 ####[facility],[address] [place] [address] CBC + DIFF Normal [facility] Comment on above: Result Comment: CBC- COMPLETE BLOOD COUNT Performed By: #### 2 96720 ####[facility],[address] [place] [address] EO # 0.09 x10EE3/UL Normal 0.00 - 0.50 [facility] Comment on above: Performed By: #### 2 96748 ####[facility],[address] [place] [address] 32190 Eosinophils/100 WBC (Bld) 1.2 % Normal 0.0 - 7.0 [facility] Comment on above: Performed By: #### 2 22385 ####[facility],[address] [place] [address] 22544 Erythrocyte distribution width (RBC) [Ratio] 13.4 % Normal 12.0 - 15.6 [facility] Comment on above: Performed By: #### 2 90565 ####[facility],[address] [place], [place] [id number] Hematocrit (Bld) [Volume fraction] 42.0 % Normal 34.0 - 46.0 [facility] Comment on above: Performed By: #### 2 63707 ####[facility],[address] [place] [address] Hemoglobin (Bld) [Mass/Vol] 14.5 g/dL Normal 12.0 - 16.0 [facility] Comment on above: Performed By: #### 2 46701 ####[facility],[address] [place] [address] Lymph # 1.62 x10EE3/UL Normal 0.80 - 2.80 [facility] Comment on above: Performed By: #### 2 19775 ####[place] [address] Lymphocytes/100 WBC (Bld) 21.4 % Normal 20.0 - 45.0 [facility] Comment on above: Performed By: #### 2 67813 ####[facility],[address] [place] [address] MANUAL DIFF N/A Normal [facility] Comment on above: Performed By: #### 2 81364 ####[place] [address] MCH (RBC) [Entitic mass] 31 pg Normal 27 - 33 [facility] Comment on above: Performed By: #### 2 55457 ####[place] [address] MCHC 35 X10 3 Normal 32 - 36 [facility] Comment on above: Performed By: #### 2 51692 ####[place] [id number] MCV (RBC) [Entitic vol] 91 fL Normal 80 - 99 [facility] Comment on above: Performed By: #### 2 86008 ####[place] [address] [place] # 0.65 x10EE3/UL Normal 0.20 - 1.00 [facility] Comment on above: Performed By: #### 2 84389 ####[facility],[address] [place] [address] 22625 MONOS % 8.6 % Normal 0.0 - 10.0 [facility] Comment on above: Performed By: #### 2 04310 ####[facility],[address] [place] [address] Morphology Zeeshan (Bld) [Interp] N/A Normal [facility] Comment on above: Performed By: #### 2 42396 ####[facility],[address] [place] [address] Neut # 5.20 x10EE3/UL Normal 1.50 - 7.10 [facility] Comment on above: Performed By: #### 2 59383 ####[facility],[address] [place] [address] Neutrophils/100 WBC (Bld) 68.5 % Normal 46.0 - 76.0 [facility] Comment on above: Performed By: #### 2 09511 ####[facility],[address] [place] [address] PLATELET 208 x10EE3/UL Normal 150 - 450 [facility] Comment on above: Performed By: #### 2 90775 ####[facility],[address] [place] [address] Platelet mean volume (Bld) [Entitic vol] 9.1 fL Normal 6.6 - 10.5 [facility] Comment on above: Result Comment: AUTO MATED DIFFERENTIAL Performed By: #### 2 53504 ####[facility],[address] [place], [place] [phone] RBC 4.63 x 10EE6/UL Normal 4.10 - 5.30 [facility] Comment on above: Performed By: #### 2 68970 ####[facility],[address],[place] [address] WBC 7.6 x 10EE3/UL Normal 4.5 - 10.8 [facility] Comment on above: Performed By: #### 2 67085 ####[facility],[address] [place] [address] 28984 CMP with eGFRon 01-29-2025 AGE 50 years Normal [facility] Comment on above: Performed By: #### 2 63512 ####[facility],[address] [place] [address] Albumin [Mass/Vol] 3.7 g/dL Normal 3.4 - 5.0 [facility] Comment on above: Performed By: #### 2 01505 ####[facility],[address] [place] [address] Albumin/Globulin [Mass ratio] 0.8 {ratio} Low 0.9 - 1.6 [facility] Comment on above: Performed By: #### 2 42929 ####[facility],[address] [place] [address] 65961 ALK PHOS 141 U/L High 46 - 116 [facility] Comment on above: Performed By: #### 2 04146 ####[facility],[address] [place], [place] [phone] ALT [Catalytic activity/Vol] 38 U/L Normal 16 - 63 [facility] Comment on above: Performed By: #### 2 87155 ####[facility],[address] [place] [address] 08430 Anion gap [Moles/Vol] 15 mmol/L Normal 10 - 20 [facility] Comment on above: Performed By: #### 2 93252 ####[facility],[address] [place] [address] 93498 AST [Catalytic activity/Vol] 30 U/L Normal 13 - 39 [facility] Comment on above: Performed By: #### 2 78266 ####[facility],[address] [place] [address] 32184 B/C RATIO 9 ratio Normal 0 - 30 [facility] Comment on above: Performed By: #### 2 59144 ####[facility],[address] [place] [address] 71057 Bilirubin [Mass/Vol] 0.4 mg/dL Normal 0.2 - 1.0 [facility] Comment on above: Performed By: #### 2 90602 ####[facility],[address] [place] [address] 16190 Calcium [Mass/Vol] 9.1 mg/dL Normal 8.5 - 10.1 [facility] Comment on above: Performed By: #### 2 86999 ####[facility],[address] [place], [place] [address] Chloride [Moles/Vol] 97 mmol/L Low 98 - 107 [facility] Comment on above: Performed By: #### 2 68499 ####[facility],[address] [place], [place] [address] CMP with eGFR Normal [facility] Comment on above: Result Comment: COMP REHENSIVE METABOLIC PANEL Performed By: #### 2 58243 ####[facility],[address] [place] [address] 90699 CO2 [Moles/Vol] 25.2 mmol/L Normal 21.0 - 32.0 [facility] Comment on above: Performed By: #### 2 66230 ####[facility],[address] [place] [address] 58317 Creatinine [Mass/Vol] 0.90 mg/dL Normal 0.55 - 1.02 [facility] Comment on above: Performed By: #### 2 59892 ####[facility],[address] [place] [address] 04669 GFR/1.73 sq M.predicted among non-blacks MDRD (S/P/Bld) [Vol rate/Area] mL/min/{1.73_m2} Normal 60 - 999 [facility] Comment on above: Performed By: #### 2 36828 ####[facility],[address] [place] [address] 26859 Result Comment: ACCO RDING TO THE NATIONAL KIDNEY DISEASE EDUCATION PROGRAM(NKDE), A NORMAL eGFR IS A VALUE GREATER THAN OR EQUAL TO 60 ML/MIN/1.73 SQ METERS. CHRONIC KIDNEY DISEASE: <60mL/MIN/1.73 SQ METERS KIDNEY FAILURE: <15mL/MIN/1.73 SQ METERS THIS TEST SHOULD ONLY BE USED FOR PATIENTS 18 YEARS OF AGE AND OLDER. Globulin (S) [Mass/Vol] 4.5 g/dL High 1.5 - 3.8 [facility] Comment on above: Performed By: #### 2 24308 ####[facility],[address] [place] [address] 53754 Glucose [Mass/Vol] 430 mg/dL High 74 - 106 [facility] Comment on above: Performed By: #### 2 50388 ####[facility],[address] [place] [address] 73519 Potassium [Moles/Vol] 3.7 mmol/L Normal 3.5 - 5.1 [facility] Comment on above: Performed By: #### 2 13157 ####[facility],[address] [place] [address] 87717 Protein [Mass/Vol] 8.2 g/dL Normal 6.4 - 8.2 [facility] Comment on above: Performed By: #### 2 86990 ####[facility],[address] [place] [address] 84982 Sodium [Moles/Vol] 133 mmol/L Low 136 - 145 [facility] Comment on above: Performed By: #### 2 94572 ####[facility],[address] [place] [address] 15697 Urea nitrogen [Mass/Vol] 8 mg/dL Normal 7 - 18 [facility] Comment on above: Performed By: #### 2 09826 ####[facility],[address] [place] [address] 91170 TROPONINon 01-29-2025 HS TROPONIN <4.0 Normal 0.0 - 51.4 [facility] Comment on above: Performed By: #### 2 63519 ####[facility],[address] [place], [place] [address] LABORATORYOrdered By: Osmel Maher on 01-16-2025 Appearance [...] a homogeneous sandwich chemiluminescent immunoassay based on [employer] technology. [facility] High Sensitivity Troponin I 6 ng/L Normal 0-51 [facility] Comment on above: Result Comment: High Sensitive Troponin I Reference Ranges: Female: 0-51 ng/L Male: 0-76 ng/L Testing performed on Dimension EXL using a homogeneous sandwich chemiluminescent immunoassay based on [employer] technology. Performed By: #### T ABBEHS ####[address] [place] [address] UAon 01-16-2025 Color (U) Yellow Normal [facility] Comment on above: Performed By: #### U A, UAMIC ####[facility] [address] [place] [address] Glucose (U) [Mass/Vol] mg/dL Abnormal Negative [facility] Comment on above: Performed By: #### U A, UAMIC ####[address] [address] [place] [address] Ketones Ql (U) Trace Abnormal Negative [facility] Comment on above: Performed By: #### U A, UAMIC ####[facility] [address] [place], [place] [address] UA Appear Slightly Cloudy Abnormal Clear [facility] Comment on above: Performed By: #### U A, UAMIC ####[address] [address] [place], [place] [address] UA Blood Negative Normal Negative [facility] Comment on above: Performed By: #### U A, UAMIC ####[address] [address] [place], [place] [address] UA Leuk Est Small Abnormal Negative [facility] Comment on above: Performed By: #### U A, UAMIC ####[facility] [address] [place], [place] [address] UA Nitrite Negative Normal Negative [facility] Comment on above: Performed By: #### U A, UAMIC ####[facility] [place] [place], [place] [address] UA pH 6.0 Normal 5.0 - 8.0 [facility] Comment on above: Performed By: #### U A, UAMIC ####[facility] [address] [place] [address] UA Protein Trace Normal Negative [facility] Comment on above: Performed By: #### U A, UAMIC ####[address] [place] [address] UA Spec Grav <=1.005 Abnormal 1.015-1.025 [facility] Comment on above: Performed By: #### U A, UAMIC ####[address] [address] [place] [address] UA Specimen Type Clean Catch Normal [facility] Comment on above: Performed By: #### U A, UAMIC ####[address] [address] [place], [place] [address] UA Urobilinogen 0.2 E.U./dL Normal 0.2-1.0 [facility] Comment on above: Performed By: #### U A, UAMIC ####[facility] [place] [place] [address] Urobilinogen (U) [Mass/Vol] Negative Normal Negative [facility] Comment on above: Performed By: #### U A, UAMIC ####[address] [address] [place], [place] [address] UAMICon 01-16-2025 UA Bacteria Trace Abnormal Negative [facility] Comment on above: Performed By: #### U A, UAMIC ####[address] [address] [place] [address] UA RBC Rare Normal 0-2 [facility] Comment on above: Performed By: #### U A, UAMIC ####[facility] [address] [place] [address] UA Squam Epithelial Rare Normal 0-20 [facility] Comment on above: Performed By: #### U Mickey UAMIC ####[facility] [address] [place], [place] [address] UA WBC 3-5 Normal 0-5 [facility] Comment on above: Performed By: #### U A UAMIC ####[facility] [address] [place], [place] [address] .Auto Diffon 01-15-2025 Basophil, Absolute 0.1 10 3/mcL Normal 0.0-0.3 [facility] Comment on above: Performed By: #### T AGUILAR, CBC, MDW, BMP, ADIFF, GFR, ANEU ####[address] [place], [place] [address] Basophils/100 WBC (Bld) 0.8 % Normal 0.0-2.5 [facility] Comment on above: Performed By: #### T AGUILAR, CBC, MDW, BMP, ADIFF, GFR, ANEU ####[address] [place], [place] [address] Eosinophil, Absolute 0.6 10 3/mcL Normal 0.0-0.7 [facility] Comment on above: Performed By: #### T AGUILAR, CBC, MDW, BMP, ADIFF, GFR, ANEU ####[address] [address] [place], [place] [address] Eosinophils/100 WBC (Bld) 5.4 % Normal 0.0-6.0 [facility] Comment on above: Performed By: #### T AGUILAR, CBC, MDW, BMP, ADIFF, GFR, ANEU ####[facility] [address] [place], [place] [address] Lymphocyte, Absolute 3.6 10 3/mcL Normal 0.9-4.3 [facility] Comment on above: Performed By: #### T ABBEHS, CBC, MDW, BMP, ADIFF, GFR, ANEU ####[address] [place], [place] [address] Lymphocytes/100 WBC (Bld) 34.1 % Normal 20.0-40.0 [facility] Comment on above: Performed By: #### T AGUILAR, CBC, MDW, BMP, ADIFF, GFR, ANEU ####[address] [place], [place] [address] Monocyte, Absolute 0.8 10 3/mcL Normal 0.1-1.4 [facility] Comment on above: Performed By: #### T AGUILAR, CBC, MDW, BMP, ADIFF, GFR, ANEU ####[facility] [address] [place], [place] [address] Monocytes/100 WBC (Bld) 7.2 % Normal 2.0-13.0 [facility] Comment on above: Performed By: #### T AGUILAR, CBC, MDW, BMP, ADIFF, GFR, ANEU ####[facility] [place] [place], [place] [address] Neutrophils/100 WBC (Bld) 52.5 % Normal 50.0-75.0 [facility] Comment on above: Performed By: #### T AGUILAR, CBC, MDW, BMP, ADIFF, GFR, ANEU ####[address] [place], [place] [address] .GFRon 01-15-2025 Estimated Glomerular Filtration Rate 85 ml/min/1.73sqm Normal [facility] Comment on above: Result Comment: Stages [...] CBC, MDW, BMP, ADIFF, GFR, ANEU ####[facility] [address] [place], [place] [address] .MDWon 01-15-2025 Monocyte Distribution Width 17.99 Normal 0.00-20.00 [facility] Comment on above: Result Comment: For ED adult patients suspected of sepsis, MDW<=20.0 does not rule out sepsis or risk of sepsis Performed By: #### T AGUILAR, CBC, MDW, BMP, ADIFF, GFR, ANEU ####[facility] [place], [place] [address] .NEUABSon 01-15-2025 Neutrophil, Absolute 5.6 10 3/mcL Normal 2.3-8.1 [facility] Comment on above: Performed By: #### T AGUILAR, CBC, MDW, BMP, ADIFF, GFR, ANEU ####[place] [address] [place], [place] [address] BMPon 01-15-2025 Calcium [Mass/Vol] 9.2 mg/dL Normal 8.4-10.2 [facility] Comment on above: Performed By: #### T AGUILAR, CBC, MDW, BMP, ADIFF, GFR, ANEU ####[place] [address] [place] [address] BUN/Creatinine Ratio 18 ratio Normal 7-27 [facility] Comment on above: Performed By: #### T AGUILAR, CBC, MDW, BMP, ADIFF, GFR, ANEU ####[place] [address] [place], [place] [address] Chloride [Moles/Vol] 98 mmol/L Normal 98-107 [facility] Comment on above: Performed By: #### T AGUILAR, CBC, MDW, BMP, ADIFF, GFR, ANEU ####[place] [address] [place], [place] [address] CO2 [Moles/Vol] 25 mmol/L Normal 22-29 [facility] Comment on above: Performed By: #### T AGUILAR, CBC, MDW, BMP, ADIFF, GFR, ANEU ####[place] [address] [place] [id number] Creatinine [Mass/Vol] 0.83 mg/dL Normal 0.51-0.95 [facility] Comment on above: Performed By: #### T AGUILAR, CBC, MDW, BMP, ADIFF, GFR, ANEU ####[address] [address] [place], [place] [address] Electrolyte Balance 4.0 mEq/L Normal 4.0-15.0 [facility] Comment on above: Performed By: #### T AGUILAR, CBC, MDW, BMP, ADIFF, GFR, ANEU ####[facility] [place] [place], [place] [address] Glucose [Mass/Vol] 350 mg/dL High 70-105 [facility] Comment on above: Performed By: #### T AGUILAR, CBC, MDW, BMP, ADIFF, GFR, ANEU ####[facility] [address] [place], [place] [address] Potassium [Moles/Vol] 3.2 mmol/L Low 3.5-5.1 [facility] Comment on above: Performed By: #### T AGUILAR, CBC, MDW, BMP, ADIFF, GFR, ANEU ####[facility] [address] [place], [place] [address] Sodium [Moles/Vol] 127 mmol/L Low 136-145 [facility] Comment on above: Performed By: #### T AGUILAR, CBC, MDW, BMP, ADIFF, GFR, ANEU ####[facility] [address] [place], [place] [address] Urea nitrogen [Mass/Vol] 15 mg/dL Normal 7-18 [facility] Comment on above: Performed By: #### T AGUILAR, CBC, MDW, BMP, ADIFF, GFR, ANEU ####[facility] [address] [place], [place] [address] CBCon 01-15-2025 Erythrocyte distribution width (RBC) [Ratio] 13.2 % Normal 11.5-15.5 [facility] Comment on above: Performed By: #### T AGUILAR, CBC, MDW, BMP, ADIFF, GFR, ANEU ####[facility] [address] [place], [place] [address] Hematocrit (Bld) [Volume fraction] 39.8 % Normal 34.0-46.0 [facility] Comment on above: Performed By: #### T AGUILAR, CBC, MDW, BMP, ADIFF, GFR, ANEU ####[facility] [address] [place], [place] [address] Hgb 13.6 G/dL Normal 12.0-16.0 [facility] Comment on above: Performed By: #### T AGUILAR, CBC, MDW, BMP, ADIFF, GFR, ANEU ####[facility] [address] [place], [place] [address] MCH (RBC) [Entitic mass] 31.0 pg Normal 27.0-33.0 [facility] Comment on above: Performed By: #### T AGUILAR, CBC, MDW, BMP, ADIFF, GFR, ANEU ####[facility] [address] [place], [place] [address] MCHC 34.2 G/dL Normal 32.0-36.0 [facility] Comment on above: Performed By: #### T AGUILAR, CBC, MDW, BMP, ADIFF, GFR, ANEU ####[address] [place] [address] MCV (RBC) [Entitic vol] 90.7 fL Normal 80.0-99.0 [facility] Comment on above: Performed By: #### T AGUILAR, CBC, MDW, BMP, ADIFF, GFR, ANEU ####[address] [place] [id number] Platelet 192 10 3/mcL Normal 150-450 [facility] Comment on above: Performed By: #### T AGUILAR, CBC, MDW, BMP, ADIFF, GFR, ANEU ####[facility] [address] [place], [place] [address] Platelet mean volume (Bld) [Entitic vol] 9.1 fL Normal 6.6-10.5 [facility] Comment on above: Performed By: #### T AGUILAR, CBC, MDW, BMP, ADIFF, GFR, ANEU ####[facility] [address] [place], [place] [address] RBC 4.39 10 6/mcL Normal 4.10-5.30 [facility] Comment on above: Performed By: #### T AGUILAR, CBC, MDW, BMP, ADIFF, GFR, ANEU ####[address] [place], [place] [address] WBC 10.7 10 3/mcL Normal 4.5-10.8 [facility] Comment on above: Performed By: #### T AGUILAR, CBC, MDW, BMP, ADIFF, GFR, ANEU ####[address] [place], [place] [address] LABORATORYOrdered By: SYSTEM SYSTEM on 01-15-2025 Basophils [...] Sensitivity Troponin I 6 ng/L Normal 0-51 [facility] Comment on above: Result Comment: High Sensitive Troponin I Reference Ranges: Female: 0-51 ng/L Male: 0-76 ng/L Testing performed on Dimension EXL using a homogeneous sandwich chemiluminescent immunoassay based on [employer] technology. Performed By: #### T ROPHS, CBC, MDW, BMP, ADIFF, GFR, ANEU ####[address] [address] XR CHEST 1 VIEWon 01-15-2025 XR CHEST [...] 01/15/2025 11:52:44 PM Ordering Provider: THERON STOKES [facility] ED MED ADMINISTRATION DETAIL on 10-28-2024 ED MED ADMINISTRATION DETAIL [employer] Medication Administration Record [address] [address] [id number] 10/27/2024 Patient: KARLIE GOVEA Sex: Female : [...] Charli Lloyd R.N. Scanned 1 of 1 [facility] ED NURSES CLINICAL NOTEon ED NURSES CLINICAL NOTE Nurse Narrative Nurse Clinical Narrative [address] [address] [id number] 10/27/2024 Patient: KARLIE GOVEA Sex: Female : 1975 Age: 49y Primary Insurance: [employer] OUTPATIENT Policy Number: [id number] Group Number: [id number] Subscriber: Other Secondary Insurance: [facility] OUT[facility]IENT Policy Number: [id number] Group Number: [id number] Subscriber: Other Disposition: Discharge to Home Disposition [...] urine; samp (more content not included)... Normal [facility] ED ORDER SHEET (CPOE ONLY)on 10-28-2024 ED ORDER SHEET (CPOE ONLY) Order Sheet Order Sheet [address] [address] [id number] 10/27/2024 Patient: KARLIE GOVEA Sex: Female : [...] (10/27/2024 23:58 EST)] 2 of 2 Normal [facility] ED PHYSICIAN CLINICAL REPORT on 10-28-2024 ED PHYSICIAN CLINICAL REPORT Narrative Physician Clinical Narrative [address] [address] [id number] 10/27/2024 Patient: KARLIE GOVEA Sex: Female : 1975 Age: 49y Primary Insurance: [employer] OUTPATIENT Policy Number: [id number] Group Number: [id number] Subscriber: Other Secondary Insurance: [facility] OUTPATIENT Policy Number: [id number] Group Number: [id number] Subscriber: Other Measurements Wt: 102.1 kg, Ht/Moncho: [...] Final NORMAL EST NORMAL: 10/27/2024 23:25 Sp [place] 1.030 Final 1.010-1.030 EST NORMAL: 10/27/2024 23:25 [...] No hematuria (more content not included)... Normal [facility] ED SUPER BILLon 10-28-2024 ED [place] [address] [place] [address] [id number] 10/27/2024 Patient: KARLIE GOVEA Sex: Female : 1975 Age: 49y Item Professional Category Description Facility Code Code Quantity Fee Total Nurse/E/M EMERGENCY 758233 1 $0.00 $0.00 DEPARTMENT VISIT MODERATE SEVERITY (97041-17) Grand Total $0.00 Providers Waylon Maddox M.D. Chief Complaint DYSURIA. Principal Diagnosis Dysuria. Probable acute cystitis. No hematuria present. 1 of 2 [facility] ICD-10 Codes R30.0: Dysuria 2 of 2 Normal [facility] ED VISIT SUMMARYon ED VISIT SUMMARY Visit Overview Visit Overview [place] [address] [place] [address] [id number] 10/27/2024 [id number] Sex: Female : 1975 Age: 49y 10/28/2024 [...] NO HEMATURIA PRESENT 3 of 3 Normal [facility] ED VITALS FLOW SHEETon 10-28 ED VITALS FLOW SHEET Vitals [place] [address] [id number] 10/27/2024 Patient: KARLIE GOVEA Sex: Female : 1975 Age: 49y Measurements Wt: 102.1 kg, Ht/Moncho: 69.0 in, BMI: 33.23 Measured Time BP MAP HR RR O2Sat ETCO2 Temp Pain GCS RTS 22:41 10/27/2024 151/91 111 88 16 97% RA 97.6 F 8 1 of 1 Normal [facility] URINALYSISon 10-27-2024 Bilirubin Ql (U) Negative Normal NORMAL: NEGATIVE [facility] Comment on above: Performed By: #### 2 76183 #### [facility],[address] [place] [address] Clarity (U) clear Normal NORMAL: CLEAR [facility] Comment on above: Performed By: #### 2 39211 #### [facility],[address] [place] [address] Color (U) shama Normal NORMAL: YELLOW [facility] Comment on above: Performed By: #### 2 02311 #### [facility],[address] [place] [address] Glucose Ql (U) NORM Normal NORMAL: NORMAL [facility] Comment on above: Performed By: #### 2 15614 #### [facility],[address] [place] [address] Hemoglobin Ql (U) Negative Normal NORMAL: NEGATIVE [facility] Comment on above: Performed By: #### 2 95314 #### [facility],[address] [place] [address] Ketone Negative Normal NORMAL: NEGATIVE [facility] Comment on above: Performed By: #### 2 67843 #### [facility],[address] [place] [address] Leukocytes Negative Normal NORMAL: NEGATIVE [facility] Comment on above: Performed By: #### 2 56199 #### [facility],[address] [place] [address] Nitrite Ql (U) Negative Normal NORMAL: NEGATIVE [facility] Comment on above: Performed By: #### 2 62451 #### [facility],[address] [place] [address] [address] pH (U) 5 [pH] Normal NORMAL: 5.0-8.0 [facility] Comment on above: Performed By: #### 2 83800 #### [facility],[address] [place] [address]83 Protein Ql (U) 100 Abnormal NORMAL: NEGATIVE [facility] Comment on above: Performed By: #### 2 05265 #### [facility],[address] [place] [address] Sp [place] 1.030 Normal NORMAL: 1.010-1.030 [facility] Comment on above: Performed By: #### 2 96302 #### [facility],[address] [place] [address] Specimen Type R Normal [facility] Comment on above: Performed By: #### 2 35929 #### [facility],[address] [place] [address] Urinalysis dipstick W Reflex Microscopic panel (U) NOT INDICATED Normal [facility] Comment on above: Performed By: #### 2 27257 #### [facility],[address] [place] [address] Urobilinog NORM Normal NORMAL: NORMAL [facility] Comment on above: Performed By: #### 2 25942 #### [facility],[address] [place] [address] .Auto Diffon 08-27-2024 Basophil, Absolute 0.1 10 3/mcL Normal 0.0-0.2 [facility] Comment on above: Performed By: #### C BC, GFR, ANEU, BMP, MDW, VBG, ADIFF #### [address] [address] Basophils/100 WBC (Bld) 0.7 % Normal 0.0-2.5 [facility] Comment on above: Performed By: #### C BC, GFR, ANEU, BMP, MDW, VBG, ADIFF #### [address] [address] Eosinophil, Absolute 0.7 10 3/mcL Normal 0.0-0.7 [facility] Comment on above: Performed By: #### C BC, GFR, ANEU, BMP, MDW, VBG, ADIFF #### [address] [address] Eosinophils/100 WBC (Bld) 7.8 % High 0.0-7.0 [facility] Comment on above: Performed By: #### C BC, GFR, ANEU, BMP, MDW, VBG, ADIFF #### [address] [address] Lymphocyte, Absolute 2.8 10 3/mcL Normal 0.9-4.3 [facility] Comment on above: Performed By: #### C BC, GFR, ANEU, BMP, MDW, VBG, ADIFF #### [address] [address] Lymphocytes/100 WBC (Bld) 29.7 % Normal 20.0-40.0 [facility] Comment on above: Performed By: #### C BC, GFR, ANEU, BMP, MDW, VBG, ADIFF #### [address] [address] Monocyte, Absolute 0.5 10 3/mcL Normal 0.1-1.4 [facility] Comment on above: Performed By: #### C BC, GFR, ANEU, BMP, MDW, VBG, ADIFF #### [address] [address] Monocytes/100 WBC (Bld) 5.2 % Normal 2.0-13.0 [facility] Comment on above: Performed By: #### C BC, GFR, ANEU, BMP, MDW, VBG, ADIFF #### [address] [address] Neutrophils/100 WBC (Bld) 56.6 % Normal 50.0-75.0 [facility] Comment on above: Performed By: #### C BC, GFR, ANEU, BMP, MDW, VBG, ADIFF #### [address] [address] .GFRon 08-27-2024 GFR 76 ml/min/1.73sqm Normal [facility] Comment on above: Result Comment: GFR [...] BC, GFR, ANEU, BMP, MDW, VBG, ADIFF ####[place] [address] [place], [place] [address] GFR Non- 63 ml/min/1.73sqm Normal [facility] Comment on above: Result Comment: GFR [...] BC, GFR, ANEU, BMP, MDW, VBG, ADIFF ####[place] [address] [place], [place] [address] .MDWon 08-27-2024 Monocyte Distribution Width 21.57 High 0.00-20.00 [facility] Comment on above: Result Comment: For adults in ED, MDW>20.0 may be associated with a higher risk of sepsis during the first 12hrs of hospital admission Performed By: #### C BC, GFR, ANEU, BMP, MDW, VBG, ADIFF #### [address] [address] .NEUABSon 08-27-2024 Neutrophil, Absolute 5.3 10 3/mcL Normal 2.3-8.1 [facility] Comment on above: Performed By: #### C BC, GFR, ANEU, BMP, MDW, VBG, ADIFF #### [place] [place], [place] [address] BMPon 08-27-2024 BUN/Creatinine Ratio 15 ratio Normal 7-27 [facility] Comment on above: Performed By: #### C BC, GFR, ANEU, BMP, MDW, VBG, ADIFF ####[facility] [address] [place], [place] [address] Calcium [Mass/Vol] 8.9 mg/dL Normal 8.4-10.2 [facility] Comment on above: Performed By: #### C BC, GFR, ANEU, BMP, MDW, VBG, ADIFF ####[facility] [place], [place] [address] Chloride [Moles/Vol] 100 mmol/L Normal 98-107 [facility] Comment on above: Performed By: #### C BC, GFR, ANEU, BMP, MDW, VBG, ADIFF ####[facility] [address] [place], [place] [address] CO2 [Moles/Vol] 28 mmol/L Normal 22-29 [facility] Comment on above: Performed By: #### C BC, GFR, ANEU, BMP, MDW, VBG, ADIFF ####[address] [place], [place] [address] Creatinine [Mass/Vol] 0.94 mg/dL Normal 0.55-1.02 [facility] Comment on above: Result Comment: Test ing performed on Siemens Dimension EXL analyzer using a modified kinetic Jessica technique. Performed By: #### C BC, GFR, ANEU, BMP, MDW, VBG, ADIFF ####[address] [place], [place] [address] Electrolyte Balance 8.0 mEq/L Normal 4.0-15.0 [facility] Comment on above: Performed By: #### C BC, GFR, ANEU, BMP, MDW, VBG, ADIFF ####[address] [place], [place] [address] Glucose [Mass/Vol] 321 mg/dL High 70-105 [facility] Comment on above: Performed By: #### C BC, GFR, ANEU, BMP, MDW, VBG, ADIFF ####[address] [address] [place], [place] [address] Potassium [Moles/Vol] 4.3 mmol/L Normal 3.5-5.1 [facility] Comment on above: Performed By: #### C BC, GFR, ANEU, BMP, MDW, VBG, ADIFF ####[address] [address] Sodium [Moles/Vol] 136 mmol/L Normal 136-145 [facility] Comment on above: Performed By: #### C BC, GFR, ANEU, BMP, MDW, VBG, ADIFF ####[address] [address] Urea nitrogen [Mass/Vol] 14 mg/dL Normal 7-18 [facility] Comment on above: Performed By: #### C BC, GFR, ANEU, BMP, MDW, VBG, ADIFF ####[address] [address] CBCon 08-27-2024 Erythrocyte distribution width (RBC) [Ratio] 13.3 % Normal 11.5-15.5 [facility] Comment on above: Performed By: #### C BC, GFR, ANEU, BMP, MDW, VBG, ADIFF #### [address] [address] Hematocrit (Bld) [Volume fraction] 37.7 % Normal 34.0-46.0 [facility] Comment on above: Performed By: #### C BC, GFR, ANEU, BMP, MDW, VBG, ADIFF #### [address] [address] Hgb 12.7 G/dL Normal 12.0-16.0 [facility] Comment on above: Performed By: #### C BC, GFR, ANEU, BMP, MDW, VBG, ADIFF #### [address] [address] MCH (RBC) [Entitic mass] 30.8 pg Normal 27.0-33.0 [facility] Comment on above: Performed By: #### C BC, GFR, ANEU, BMP, MDW, VBG, ADIFF #### [address] [address] MCHC 33.7 G/dL Normal 32.0-36.0 [facility] Comment on above: Performed By: #### C BC, GFR, ANEU, BMP, MDW, VBG, ADIFF #### [address] [address] MCV (RBC) [Entitic vol] 91.5 fL Normal 80.0-99.0 [facility] Comment on above: Performed By: #### C BC, GFR, ANEU, BMP, MDW, VBG, ADIFF #### [address] [address] Platelet 245 10 3/mcL Normal 150-450 [facility] Comment on above: Performed By: #### C BC, GFR, ANEU, BMP, MDW, VBG, ADIFF #### [address] [address] Platelet mean volume (Bld) [Entitic vol] 9.7 fL Normal 6.6-10.5 [facility] Comment on above: Performed By: #### C BC, GFR, ANEU, BMP, MDW, VBG, ADIFF #### [address] [address] RBC 4.12 10 6/mcL Normal 4.10-5.30 [facility] Comment on above: Performed By: #### C BC, GFR, ANEU, BMP, MDW, VBG, ADIFF #### [address] [address] WBC 9.4 10 3/mcL Normal 4.5-10.8 [facility] Comment on above: Performed By: #### C BC, GFR, ANEU, BMP, MDW, VBG, ADIFF #### [address] [address] LABORATORYOrdered By: Kieran mccauley on 08-27-2024 Appearance [...] above: Interpretive Data: T esting performed on Greek[employer] Dimension EXL analyzer using a modified kinetic [...] 347 mg/dL High 70 - 110 mg/dL [facility] Comment on above: Result Comment: per squad, 518 per pt before she called squad UAon 08-27-2024 Color (U) Yellow Normal [facility] Comment on above: Performed By: #### U A ####[address] [place], [place] [address] Glucose (U) [Mass/Vol] 500 mg/dL Abnormal Negative [facility] Comment on above: Performed By: #### U A ####[address] [place] [place], [place] [address] Ketones Ql (U) Negative Normal Negative [facility] Comment on above: Performed By: #### U A ####[facility] [address] [place], [place] [address] UA Appear Clear Normal Clear [facility] Comment on above: Performed By: #### U A ####[address] [place] [place], [place] [address] UA Blood Negative Normal Negative [facility] Comment on above: Performed By: #### U A ####[address] [place] [place] [address] UA Leuk Est Negative Normal Negative [facility] Comment on above: Performed By: #### U A ####[address] [place] [address] UA Nitrite Negative Normal Negative [facility] Comment on above: Performed By: #### U A ####[address] [place] [address] UA pH 5.5 Normal 5.0 - 8.0 [facility] Comment on above: Performed By: #### U A ####[address] [place] [address] UA Protein Trace Normal Negative [facility] Comment on above: Performed By: #### U A ####[address] [place] [place] [address] UA Spec Grav >=1.030 Abnormal 1.015-1.025 [facility] Comment on above: Performed By: #### U A ####[address] [place] [place] [address] UA Specimen Type Clean Catch Normal [facility] Comment on above: Performed By: #### U A ####[place] [address] UA Urobilinogen 0.2 E.U./dL Normal 0.2-1.0 [facility] Comment on above: Performed By: #### U A ####[address] [place] [address] Urobilinogen (U) [Mass/Vol] Negative Normal Negative [facility] Comment on above: Performed By: #### U A ####[facility] [address] [place] [address] VBGon 08-27-2024 BE Venous -1.4 mmol/L Normal -3.0-3.0 [facility] Comment on above: Performed By: #### C BC, GFR, ANEU, BMP, MDW, VBG, ADIFF ####[address] [place] [place] [address] CO2 [Moles/Vol] 23.0 mmol/L Normal 22.0-32.0 [facility] Comment on above: Performed By: #### C BC, GFR, ANEU, BMP, MDW, VBG, ADIFF ####[address] [place], [place] [address] HCO3 (Bld) [Moles/Vol] 22.0 mmol/L Normal 21.0-30.0 [facility] Comment on above: Performed By: #### C BC, GFR, ANEU, BMP, MDW, VBG, ADIFF ####[address] [place], [place] [address] Oxygen saturation in Blood 96.4 % High 70.0-75.0 [facility] Comment on above: Performed By: #### C BC, GFR, ANEU, BMP, MDW, VBG, ADIFF ####[address] [address] [place], [place] [address] pCO2 Eitan 33.0 mmHg Low 41.0-51.0 [facility] Comment on above: Performed By: #### C BC, GFR, ANEU, BMP, MDW, VBG, ADIFF ####[address] [place], [place] [address] pH Venous 7.441 Normal 7.380-7.460 [facility] Comment on above: Performed By: #### C BC, GFR, ANEU, BMP, MDW, VBG, ADIFF ####[address] [place], [place] [address] pO2 Eitan 81.2 mmHg High 35.0-40.0 [facility] Comment on above: Performed By: #### C BC, GFR, ANEU, BMP, MDW, VBG, ADIFF ####[address] [place], [place] [address] CBC W Auto Differential pane l (Bld)on 05-29-2024 Basophils (Bld) [#/Vol] 0.10 10*3/uL Normal <0.11 [facility] Comment on above: Order Comment: Speci men Type: BLOOD SPECIMEN Ordering Facility: [facility] Address: [address] [place] [address] Performed By: #### L [id number], 48384-6, 77588-0, 28135-9 #### [facility] CLIA [id number] [address] [place] [address] [place] Basophils/100 WBC (Bld) 0.8 % [facility] Comment on above: Order Comment: Speci men Type: BLOOD SPECIMEN Ordering Facility: [facility] Address: [address] [place] [address] Performed By: #### L [id number], 31798-5, 03221-5, 55265-9 #### [facility] CLIA [id number] [address] [place] [address] [place] Differential cell count method Nom (Bld) Auto Normal [facility] Comment on above: Order Comment: Speci men Type: BLOOD SPECIMEN Ordering Facility: [facility] Address: [address] [place] [address] Performed By: #### L [id number], 50751-0, 86227-5, 00986-2 #### [facility] CLIA [id number] [address] [place] [address] [place] Eosinophils (Bld) [#/Vol] 0.70 10*3/uL High <0.46 [facility] Comment on above: Order Comment: Speci men Type: BLOOD SPECIMEN Ordering Facility: [facility] Address: [address] [place] [address] Performed By: #### L [id number], 20146-2, 97910-8, 68990-5 #### [facility] CLIA [id number] [address] [place] [address] [place] Eosinophils/100 WBC (Bld) 5.8 % [facility] Comment on above: Order Comment: Speci men Type: BLOOD SPECIMEN Ordering Facility: [facility] Address: [address] [place] [address] Performed By: #### L [id number], 82887-9, 87179-0, 71194-4 #### [facility] CLIA [id number] [address] [place] [address] [place] Erythrocyte distribution width (RBC) [Ratio] 11.7 % Normal 11.5-15.0 [facility] Comment on above: Order Comment: Speci men Type: BLOOD SPECIMEN Ordering Facility: [facility] Address: [address] [place] [address] Performed By: #### L [id number], 30484-7, 75841-7, 05038-0 #### [facility] CLIA [id number] [address] [place] [address] [place] Hematocrit (Bld) [Volume fraction] 41.7 % Normal 36.0-46.0 [facility] Comment on above: Order Comment: Speci men Type: BLOOD SPECIMEN Ordering Facility: [facility] Address: [address] [place] [address] Performed By: #### L [id number], 27906-7, 05292-5, #### [facility] CLIA [id number] [address] [place] [address] [place] Hemoglobin (Bld) [Mass/Vol] 14.3 g/dL Normal 11.5-15.5 [facility] Comment on above: Order Comment: Speci men Type: BLOOD SPECIMEN Ordering Facility: [facility] Address: [address] [place] [address] Performed By: #### L [id number], 17225-3, 93751-1, #### [facility] CLIA [id number] [address] [place] [address] [place] Immature granulocytes (Bld) [#/Vol] 0.06 10*3/uL Normal <0.10 [facility] Comment on above: Order Comment: Speci men Type: BLOOD SPECIMEN Ordering Facility: [facility] Address: [address] [place] [address] Performed By: #### L [id number], 95731-9, 94831-9, 01390-3 #### [facility] CLIA [id number] [address] [place] [address] [place] Immature granulocytes/100 WBC (Bld) 0.5 % Normal [facility] Comment on above: Order Comment: Speci men Type: BLOOD SPECIMEN Ordering Facility: [facility] Address: [address] [place] [address] Performed By: #### L [id number], 73204-9, 93099-5, 36680-5 #### [facility] CLIA [id number] [address] [place] [address] [place] Lymphocytes (Bld) [#/Vol] 2.95 10*3/uL Normal 1.00-4.00 [facility] Comment on above: Order Comment: Speci men Type: BLOOD SPECIMEN Ordering Facility: [facility] Address: [address] [place] [address] Performed By: #### L [id number], 18888-1, 08283-9, 12200-7 #### [facility] CLIA [id number] [address] [place] [address] [place] Lymphocytes/100 WBC (Bld) 24.4 % Normal [facility] Comment on above: Order Comment: Speci men Type: BLOOD SPECIMEN Ordering Facility: [facility] Address: [address] [place] [address] Performed By: #### L [id number], 78673-0, 79519-3, 00800-7 #### [facility] CLIA [id number] [address] [place] [address] [place] MCH (RBC) [Entitic mass] 31.0 pg Normal 26.0-34.0 [facility] Comment on above: Order Comment: Speci men Type: BLOOD SPECIMEN Ordering Facility: [facility] Address: [address] [place] [address] Performed By: #### L [id number], 47114-4, 51273-1, 66388-1 #### [facility] CLIA [id number] [address] [place] [address] [place] MCHC (RBC) [Mass/Vol] 34.3 g/dL Normal 30.5-36.0 [facility] Comment on above: Order Comment: Speci men Type: BLOOD SPECIMEN Ordering Facility: [facility] Address: [address] [place] [address] Performed By: #### L [id number], 39356-5, 33122-5, 80214-5 #### [facility] CLIA [id number] [address] [place] [address] [place] MCV (RBC) [Entitic vol] 90.3 fL Normal 80.0-100.0 [facility] Comment on above: Order Comment: Speci men Type: BLOOD SPECIMEN Ordering Facility: [facility] Address: [address] [place] [address] Performed By: #### L [id number], , 61317-9, #### [facility] CLIA [id number] [address] [place] [address] [place] Monocytes (Bld) [#/Vol] 0.68 10*3/uL Normal <0.87 [facility] Comment on above: Order Comment: Speci men Type: BLOOD SPECIMEN Ordering Facility: [facility] Address: [address] [place] [address] Performed By: #### L [id number], , 84884-3, #### [facility] CLIA [id number] [address] [place] [address] [place] Monocytes/100 WBC (Bld) 5.6 % Normal [facility] Comment on above: Order Comment: Speci men Type: BLOOD SPECIMEN Ordering Facility: [facility] Address: [address] [place] [address] Performed By: #### L [id number], , 23150-1, 92156-1 #### [facility] CLIA [id number] [address] [place] [address] [place] Neutrophils (Bld) [#/Vol] 7.62 10*3/uL High 1.45-7.50 [facility] Comment on above: Order Comment: Speci men Type: BLOOD SPECIMEN Ordering Facility: [facility] Address: [address] [place] [address] Performed By: #### L [id number], 25262-8, 57460-0, 39829-4 #### [facility] CLIA [id number] [address] [place] [address] [place] Neutrophils/100 WBC (Bld) 62.9 % Normal [facility] Comment on above: Order Comment: Speci men Type: BLOOD SPECIMEN Ordering Facility: [facility] Address: [address] [place] [address] Performed By: #### L [id number], 74855-0, 13092-5, 24454-9 #### [facility] CLIA [id number] [address] [place] [address] [place] Nucleated RBC (Bld) [#/Vol] 10*3/uL Normal <0.01 [facility] Comment on above: Order Comment: Speci men Type: BLOOD SPECIMEN Ordering Facility: [facility] Address: [address] [place] [address] Performed By: #### L [id number], 85441-8, 05812-8, 21828-0 #### [facility] CLIA [id number] [address] [place] [address] [place] Nucleated RBC/100 WBC (Bld) [Ratio] 0.0 /[address] [facility] Comment on above: Order Comment: Speci men Type: BLOOD SPECIMEN Ordering Facility: [facility] Address: [address] [place] [address] Performed By: #### L [id number], 82863-7, 57117-5, 77332-0 #### [facility] CLIA [id number] [address] [place] [address] [place] Platelet mean volume (Bld) [Entitic vol] 10.2 fL Normal 9.0-12.7 [facility] Comment on above: Order Comment: Speci men Type: BLOOD SPECIMEN Ordering Facility: [facility] Address: [address] [place] [address] Performed By: #### L [id number], 20088-0, 81454-0, 23256-7 #### [facility] CLIA [id number] [address] [place], [place] [address] [place] Platelets (Bld) [#/Vol] 250 10*3/uL Normal 150-400 [facility] Comment on above: Order Comment: Speci men Type: BLOOD SPECIMEN Ordering Facility: [facility] Address: [address] [place] [address] Performed By: #### L [id number], 84949-1, 02727-7, 60740-3 #### [facility] CLIA [id number] [address] [place] [address] [place] RBC (Bld) [#/Vol] 4.62 10*6/uL Normal 3.90-5.20 [facility] Comment on above: Order Comment: Speci men Type: BLOOD SPECIMEN Ordering Facility: [facility] Address: [address] [place] [address] Performed By: #### L [id number], 38268-9, 13735-1, 47195-6 #### [facility] CLIA [id number] [address] [place], [place] [address] [place] WBC (Bld) [#/Vol] 12.11 10*3/uL High 3.70-11.00 [facility] Comment on above: Order Comment: Speci men Type: BLOOD SPECIMEN Ordering Facility: [facility] Address: [address] [place] [address] Performed By: #### L [id number], 52761-4, 81188-9, 51257-5 #### [facility] CLIA [id number] [address] [place], [place] [address] [place] CT BRAIN WO IVCONon 05-29-[address] BRAIN WO IVCON * * *Final Report* * * DATE OF EXAM: May 29 2024 3:36PM [facility] 0504 - CT BRAIN WO IVCON / [...] Unremarkable. IMPRESSION: No acute intracranial process identified. [employer] Supervisor: ALBINO Transcribe Date/Time: May 29 2024 4:47P Dictated by : HARPER PADILLA MD This examination was interpreted and the report reviewed and electronically signed by: HARPER PADILLA MD on May 29 2024 4:48PM EST [id number] N Normal [facility] Comprehensive metabolic 2000 panelon 05-29-2024 Albumin [Mass/Vol] 4.5 g/dL Normal 3.9-4.9 [facility] Comment on above: Order Comment: Hue rizzo Type: BLOOD SPECIMEN Ordering Facility: [facility] Address: [address] [place] [address] Performed By: #### L [id number], 48597-6, 47980-0, 28077-9 #### [facility] CLIA [id number] [address] [place] [address] [place] ALP [Catalytic activity/Vol] 109 U/L Normal 34-123 [facility] Comment on above: Order Comment: Ajayi so Type: BLOOD SPECIMEN Ordering Facility: [facility] Address: [address] [place] [address] Performed By: #### L [id number], 69417-2, 71321-4, 79807-1 #### [facility] CLIA [id number] [address] [place] [address] [place] ALT [Catalytic activity/Vol] 29 U/L Normal 7-38 [facility] Comment on above: Order Comment: Speci men Type: BLOOD SPECIMEN Ordering Facility: [facility] Address: [address] [place] [address] Performed By: #### L [id number], 82253-0, 36718-7, 85608-1 #### [facility] CLIA [id number] [address] [place] [address] [place] Anion gap [Moles/Vol] 14 mmol/L Normal 8-15 [facility] Comment on above: Order Comment: Speci men Type: BLOOD SPECIMEN Ordering Facility: [facility] Address: [address] [place] [address] Performed By: #### L [id number], 15186-6, 49772-0, 44249-8 #### [facility] CLIA [id number] [address] [place] [address] [place] AST [Catalytic activity/Vol] 29 U/L Normal 13-35 [facility] Comment on above: Order Comment: Speci men Type: BLOOD SPECIMEN Ordering Facility: [facility] Address: [address] [place] [address] Performed By: #### L [id number], 04367-5, 35065-0, 29015-1 #### [facility] CLIA [id number] [address] [place] [address] [place] Bilirubin [Mass/Vol] 0.4 mg/dL Normal 0.2-1.3 [facility] Comment on above: Order Comment: Speci men Type: BLOOD SPECIMEN Ordering Facility: [facility] Address: [address] [place] [address] Performed By: #### L [id number], 21867-5, 99535-3, 28651-9 #### [facility] CLIA [id number] [address] [place] [address] [place] Calcium [Mass/Vol] 10.0 mg/dL Normal 8.5-10.2 [facility] Comment on above: Order Comment: Speci men Type: BLOOD SPECIMEN Ordering Facility: [facility] Address: [address] [place] [address] Performed By: #### L [id number], 83623-2, 65822-2, 26918-7 #### [facility] CLIA [id number] [address] [place] [address] [place] Chloride [Moles/Vol] 96 mmol/L Low 98-107 [facility] Comment on above: Order Comment: Speci men Type: BLOOD SPECIMEN Ordering Facility: [facility] Address: [address] [place] [address] Performed By: #### L [id number], 61623-3, 56139-8, 54137-3 #### [facility] CLIA [id number] [address] [place] [address] [place] CO2 [Moles/Vol] 25 mmol/L Normal 22-30 [facility] Comment on above: Order Comment: Speci men Type: BLOOD SPECIMEN Ordering Facility: [facility] Address: [address] [place] [address] Performed By: #### L [id number], 69368-5, 21166-5, 66849-9 #### [facility] CLIA [id number] [address] [place] [address] [place] Creatinine [Mass/Vol] 0.87 mg/dL Normal 0.58-0.96 [facility] Comment on above: Order Comment: Speci men Type: BLOOD SPECIMEN Ordering Facility: [facility] Address: [address] [place] [address] Performed By: #### L [id number], 18251-5, 51760-2, 85853-1 #### [facility] CLIA [id number] [address] [place] [address] [place] Creatinine and Glomerular filtration rate.predicted panel (S/P/Bld) 81 mL/min/1.73m??? Normal >=60 [facility] Comment on above: Order Comment: Speci men Type: BLOOD SPECIMEN Ordering Facility: [facility] Address: [address] [place] [address] Result Comment: Payton mated Glomerular Filtration Rate [...] reflect actual GFR. Performed By: #### L [id number], 75111-0, 21550-8, 57379-5 #### [facility] CLIA [id number] [address] [place] [address] [place] Glucose [Mass/Vol] 302 mg/dL High 74-99 [facility] Comment on above: Order Comment: Hue rizzo Type: BLOOD SPECIMEN Ordering Facility: [facility] Address: [address] [place] [address] Result Comment: The [place] [employer] (ADA) provides guidance for cutoff [...] Standards of Medical Care in Diabetes 2016, [place] [employer]. Diabetes Care. 2016.39(Suppl 1). Performed By: #### L [id number], 24309-7, 88715-5, 75762-3 #### [facility] CLIA [id number] [address] [place] [address] [place] Potassium [Moles/Vol] 4.3 mmol/L Normal 3.7-5.1 [facility] Comment on above: Order Comment: [facility] Type: BLOOD SPECIMEN Ordering Facility: [facility] Address: [address] [place] [address] Performed By: #### L [id number], 29869-3, 91130-3, 63956-8 #### [facility] CLIA [id number] [address] [place], [place] [address] [place] Protein [Mass/Vol] 7.8 g/dL Normal 6.3-8.0 [facility] Comment on above: Order Comment: Speci men Type: BLOOD SPECIMEN Ordering Facility: [facility] Address: [address] [place], [place] [address] Performed By: #### L [id number], 27119-8, 98334-7, 10148-9 #### [facility] CLIA [id number] [address] [place] [address] [place] Sodium [Moles/Vol] 135 mmol/L Low 136-144 [facility] Comment on above: Order Comment: Speci men Type: BLOOD SPECIMEN Ordering Facility: [facility] Address: [address] [place] [address] Performed By: #### L [id number], 04968-1, 40883-2, 04904-0 #### [facility] CLIA [id number] [address] [place] [address] [place] Urea nitrogen [Mass/Vol] 9 mg/dL Normal 7- [facility] Comment on above: Order Comment: Speci men Type: BLOOD SPECIMEN Ordering Facility: [facility] Address: [address] [place] [address] Performed By: #### L [id number], 31818-9, 88682-0, 42439-7 #### [facility] CLIA [id number] [address] [place] [address] [place] ECG COMPLETEon 05-29-2024 ECG COMPLETE Ventricular Rate : 103 BPM Atrial Rate : 103 BPM P-R Interval : 150 ms QRS Duration : 84 ms Q-T Interval : 340 ms QTC Calculation(Bazett) : 445 ms Calculated P [place] : 39 degrees Calculated R [place] : 58 degrees Calculated T [place] : 42 degrees Sinus tachycardia Otherwise normal ECG When compared with ECG of 29-May-2024 13:36, No significant change was found Confirmed by GLADIS CUELLO MD ([id number]) on 06/02/2024 8:11:42 AM NAME : KARLIE GOVEA PID : [id number] : 1975 Gender : Female Race : ORD : [id number] Procedure Date : May 29 2024 13:47:46 Edit Date : Jun 02 2024 08:11:44 Diagnosis: Sinus tachycardia Otherwise normal ECG When compared with ECG of 29-May-2024 13:36, No significant change was found Confirmed by GLADIS CUELLO MD ([id number]) on 06/02/2024 8:11:42 AM Test Reason : HCS Location : 3 : ED ED Overread By : GLADIS CUELLO MD Edited By : GLADIS CUELLO MD Referred By : , Acquired by : [facility] ECG COMPLETE Ventricular Rate : 118 BPM Atrial Rate : 118 BPM P-R Interval : 154 ms QRS Duration : 86 ms Q-T Interval : 326 ms QTC Calculation(Bazett) : 456 ms Calculated P [place] : 50 degrees Calculated R [place] : 57 degrees Calculated T [place] : 38 degrees Sinus tachycardia Otherwise normal ECG When compared with ECG of 27-May-2024 16:12, No significant change was found Confirmed by GLADIS CUELLO MD ([id number]) on 06/02/2024 8:11:50 AM NAME : KARLIE GOVEA PID : [id number] : 1975 Gender : Female Race : ORD : [id number] Procedure Date : May 29 2024 13:36:49 Edit Date : Jun 02 2024 08:11:54 Diagnosis: Sinus tachycardia Otherwise normal ECG When compared with ECG of 27-May-2024 16:12, No significant change was found Confirmed by GLADIS CUELLO MD ([id number]) on 06/02/2024 8:11:50 AM Test Reason : HCS Location : 3 : ED ED Overread By : GLADIS CUELLO MD Edited By : GLADIS CUELLO MD Referred By : , Acquired by : [facility] ED NOTEon 05-29-2024 ED NOTE HNO ID: [id number] Author: WINSTON NAYLOR RN Service: ? Author Type: Registered Nurse Type: ED Notes Filed: 05/29/2024 14:59 Note Text: [facility] ED NOTE HNO ID: [id number] Author: NIKKI MENENDEZ RN Service: ? Author [...] it will go away. Primary rn notified [facility] ED PROV NOTEon 05-29-2024 ED PROV NOTE HNO ID: [id number] Author: NORBERT WHITE MD Service: ? Author [...] MUSCLES AXILLARY LYMPH NODES 2011 bilateral - Coamo RPR 1ST INGUN HRNA AGE 5 YRS/> [...] include adulteration/sp (more content not included)... Normal [facility] Fibrin D-dimer FEU (PPP) [Ma ss/Vol]on 05-29-2024 Fibrin D-dimer DDU IA (Bld) [Mass/Vol] 215 ng/mL DDU Normal <=230 [facility] Comment on above: Order Comment: Speci men Type: BLOOD SPECIMEN Ordering Facility: [facility] Address: [address] [place] [address] Performed By: #### L [id number], 02699-1, 97323-6, 64218-6 #### [facility] CLIA [id number] [address] [place] [address] [place] HIGH SENSITIVITY TROPONIN T (INITIAL)on 05-29-2024 Troponin T.cardiac High sensitivity method [Mass/Vol] 11 ng/L Normal <12 [facility] Comment on above: Order Comment: Speci men Type: BLOOD SPECIMEN Ordering Facility: [facility] Address: [address] [place] [address] Performed By: #### L [id number], 93233-4, 93139-3, 71252-9 #### [facility] CLIA [id number] [address] [place] [address] [place] HIGH SENSITIVITY TROPONIN T (SECOND)on 05-29-2024 Troponin T.cardiac High sensitivity method [Mass/Vol] 8 ng/L Normal <12 [facility] Comment on above: Order Comment: Speci men Type: BLOOD SPECIMEN Ordering Facility: [facility] Address: [address] [place] [address] Performed By: #### L [id number], 66474-9, 93816-7, 21819-5 #### [facility] CLIA [id number] [address] [place] [address] [place] HIGH SENSITIVITY TROPONIN T (THIRD) 3 HRS AFTER INITIALon 05-29-2024 Troponin T.cardiac High sensitivity method [Mass/Vol] 9 ng/L Normal <12 [facility] Comment on above: Order Comment: Speci men Type: BLOOD SPECIMEN Ordering Facility: [facility] Address: [address] [place] [address] Performed By: #### L [id number], 00200-7, 00167-8, 74834-8 #### [facility] CLIA [id number] [address] [place] [address] [place] Magnesium SerPl-mCncon 05-29 Magnesium [Mass/Vol] 2.0 mg/dL Normal 1.7-2.3 [facility] Comment on above: Order Comment: Speci men Type: BLOOD SPECIMEN Ordering Facility: [facility] Address: [address] [place] [address] Performed By: #### L [id number], 54892-6, 21395-1, 47299-1 #### [facility] CLIA [id number] [address] [place] [address] [place] NT-proBNP SerPl-mCncon 05-29 Natriuretic peptide.B prohormone N-Terminal [Mass/Vol] <36 Normal <125 [facility] Comment on above: Order Comment: Speci men Type: BLOOD SPECIMEN Ordering Facility: [facility] Address: [address] [place], [place] [address] Performed By: #### L [id number], 17764-9, 39491-6, 74945-7 #### [facility] CLIA [id number] [address] [place] [address] [place] TOXICOLOGY SCREEN, ROUTINE U RINEon 05-29-2024 Amphetamines Confirm (U) [Mass/Vol] Negative Normal Negative [facility] Comment on above: Order Comment: Speci men Type: BLOOD SPECIMEN Ordering Facility: [facility] Address: [address] [place] [address] Result Comment: Cuto ff threshold at 1000 ng/mL. Performed By: #### L [id number], 68756-2, 03387-4, 79187-8 #### [facility] CLIA [id number] [address] [place] [address] [place] BARBITURATES, URINE Negative Normal Negative [facility] Comment on above: Order Comment: Speci men Type: BLOOD SPECIMEN Ordering Facility: [facility] Address: [address] [place] [address] Result Comment: Cuto ff threshold at 200 ng/mL. Performed By: #### L [id number], 11499-4, 46820-2, 63440-4 #### [facility] CLIA [id number] [address] [place] [address] [place] BENZODIAZEPINES, UR Positive Abnormal Negative [facility] Comment on above: Order Comment: Speci men Type: BLOOD SPECIMEN Ordering Facility: [facility] Address: [address] [place] [address] Result Comment: Cuto ff threshold at 200 ng/mL. Performed By: #### L [id number], 95628-2, 16749-6, 89373-1 #### [facility] CLIA [id number] [address] [place] [address] [place] Cannabinoids Screen Ql (U) Positive Abnormal Negative [facility] Comment on above: Order Comment: Speci men Type: BLOOD SPECIMEN Ordering Facility: [facility] Address: [address] [place] [address] Result Comment: Cuto ff threshold at 50 ng/mL. Performed By: #### L [id number], 80330-0, 85823-9, 26740-0 #### [facility] CLIA [id number] [address] [place] [address] [place] Cocaine Ql (U) Negative Normal Negative [facility] Comment on above: Order Comment: Speci men Type: BLOOD SPECIMEN Ordering Facility: [facility] Address: [address] [place] [address] Result Comment: Cuto ff threshold at 300 ng/mL. Performed By: #### L [id number], 28049-2, 89826-3, 14134-8 #### [facility] CLIA [id number] [address] [place] [address] [place] Opiates Screen Ql (U) Positive Abnormal Negative [facility] Comment on above: Order Comment: Speci men Type: BLOOD SPECIMEN Ordering Facility: [facility] Address: [address] [place] [address] Result Comment: Cuto ff threshold at 300 ng/mL. Performed By: #### L [id number], 19545-2, 76297-6, 21546-3 #### [facility] CLIA [id number] [address] [place] [address] [place] oxyCODONE cutoff Screen (U) [Mass/Vol] Negative Normal Negative [facility] Comment on above: Order Comment: Speci men Type: BLOOD SPECIMEN Ordering Facility: [facility] Address: [address] [place] [address] Result Comment: Cuto ff threshold at 100 ng/mL. Performed By: #### L [id number], 86015-0, 91092-8, 31869-8 #### [facility] CLIA [id number] [address] [place] [address] [place] Phencyclidine Ql (U) Negative Normal Negative [facility] Comment on above: Order Comment: Speci men Type: BLOOD SPECIMEN Ordering Facility: [facility] Address: [address] [place] [address] Result Comment: Cuto ff threshold at 25 ng/mL. Performed By: #### L [id number], 10028-1, 17781-6, 92533-1 #### [facility] CLIA [id number] [address] [place] [address] [place] TSH SerPl-aCncon 05-29-2024 TSH Qn 2.210 m[IU]/L Normal 0.270-4.200 [facility] Comment on above: Order Comment: Speci men Type: BLOOD SPECIMEN Ordering Facility: [facility] Address: [address] [place] [address] Result Comment: If t he patient is , TSH reference range varies by gestational period: First Trimester (weeks 9-12): 0.180-2.990 mIU/L Second Trimester: 0.110-3.980 mIU/L Third Trimester: 0.480-4.710 mIU/L Mendel Pedraza et al. A Practical Approach for the Verifications and Determination of Site- and Trimester-Specific Reference Intervals for Thyroid Function tests in . Thyroid, 2019:29:3:412-420. Kenny Paniagua, et al. 2017 Guidelines of the [place] Thyroid Association for the Diagnosis and Management of Thyroid Disease during and the . Thyroid, 2017:27:3:315-389. Performed By: #### L [id number], 88722-0, 35876-4, 18567-0 #### [facility] CLIA [id number] [address] [place] [address] [place] XR CHEST 1V [...] cardiomediastinal silhouette. Other: . IMPRESSION: Bibasilar atelectasis. [employer] Supervisor: ALBINO Transcribe Date/Time: May 29 2024 3:04P Dictated by : ROSEMARIE GARCÍA MD This examination was interpreted and the report reviewed and electronically signed by: ROSEMARIE GARCÍA MD on May 29 2024 3:05PM EST [id number] [facility] CBC W Auto Differential pane l (Bld)on 05-27-2024 Basophils (Bld) [#/Vol] 0.13 10*3/uL High <0.11 [facility] Comment on above: Order Comment: Speci men Type: BLOOD SPECIMEN Ordering Facility: [facility] Address: [address] [place] [address] Performed By: #### L [id number], 61289-4, 88331-3, 03993-8 #### [facility] CLIA [id number] [address] [place] [address] [place] Basophils/100 WBC (Bld) 1.0 % Normal [facility] Comment on above: Order Comment: Speci men Type: BLOOD SPECIMEN Ordering Facility: [facility] Address: [address] [place] [address] Performed By: #### L [id number], 41052-4, 33852-7, 97814-1 #### [facility] CLIA [id number] [address] [place] [address] [place] Differential cell count method Nom (Bld) Auto [facility] Comment on above: Order Comment: Speci men Type: BLOOD SPECIMEN Ordering Facility: [facility] Address: [address] [place] [address] Performed By: #### L [id number], 56785-6, 11993-9, 80451-1 #### [facility] CLIA [id number] [address] [place] [address] [place] Eosinophils (Bld) [#/Vol] 1.06 10*3/uL High <0.46 [facility] Comment on above: Order Comment: Speci men Type: BLOOD SPECIMEN Ordering Facility: [facility] Address: [address] [place] [address] Performed By: #### L [id number], 73121-0, 00970-1, 21065-8 #### [facility] CLIA [id number] [address] [place] [address] [place] Eosinophils/100 WBC (Bld) 8.2 % Normal [facility] Comment on above: Order Comment: Speci men Type: BLOOD SPECIMEN Ordering Facility: [facility] Address: [address] [place] [address] Performed By: #### L [id number], 34347-8, 79646-8, 26757-8 #### [facility] CLIA [id number] [address] [place] [address] [place] Erythrocyte distribution width (RBC) [Ratio] 11.7 % Normal 11.5-15.0 [facility] Comment on above: Order Comment: Speci men Type: BLOOD SPECIMEN Ordering Facility: [facility] Address: [address] [place] [address] Performed By: #### L [id number], 31829-9, 93538-6, 59453-2 #### [facility] CLIA [id number] [address] [place] [address] [place] Hematocrit (Bld) [Volume fraction] 41.1 % Normal 36.0-46.0 [facility] Comment on above: Order Comment: Speci men Type: BLOOD SPECIMEN Ordering Facility: [facility] Address: [address] [place] [address] Performed By: #### L [id number], 90462-8, 76486-9, 05343-0 #### [facility] CLIA [id number] [address] [place] [address] [place] Hemoglobin (Bld) [Mass/Vol] 14.3 g/dL Normal 11.5-15.5 [facility] Comment on above: Order Comment: Speci men Type: BLOOD SPECIMEN Ordering Facility: [facility] Address: [address] [place] [address] Performed By: #### L [id number], 10612-8, 63522-0, 76246-7 #### [facility] CLIA [id number] [address] [place] [address] [place] Immature granulocytes (Bld) [#/Vol] 0.07 10*3/uL Normal <0.10 [facility] Comment on above: Order Comment: Speci men Type: BLOOD SPECIMEN Ordering Facility: [facility] Address: [address] [place] [address] Performed By: #### L [id number], 15416-9, 44935-8, 87083-5 #### [facility] CLIA [id number] [address] [place] [address] [place] Immature granulocytes/100 WBC (Bld) 0.5 % Normal [facility] Comment on above: Order Comment: Speci men Type: BLOOD SPECIMEN Ordering Facility: [facility] Address: [address] [place] [address] Performed By: #### L [id number], 01601-6, 52206-2, 85818-0 #### [facility] CLIA [id number] [address] [place] [address] [place] Lymphocytes (Bld) [#/Vol] 3.59 10*3/uL Normal 1.00-4.00 [facility] Comment on above: Order Comment: Speci men Type: BLOOD SPECIMEN Ordering Facility: [facility] Address: [address] [place] [address] Performed By: #### L [id number], 11811-6, 97306-7, 34029-0 #### [facility] CLIA [id number] [address] [place] [address] [place] Lymphocytes/100 WBC (Bld) 27.7 % Normal [facility] Comment on above: Order Comment: Speci men Type: BLOOD SPECIMEN Ordering Facility: [facility] Address: [address] [place] [address] Performed By: #### L [id number], 99742-9, 61795-1, 44512-1 #### [facility] CLIA [id number] [address] [place] [address] [place] MCH (RBC) [Entitic mass] 31.2 pg Normal 26.0-34.0 [facility] Comment on above: Order Comment: Speci men Type: BLOOD SPECIMEN Ordering Facility: [facility] Address: [address] [place] [address] Performed By: #### L [id number], 35375-6, 35780-8, #### [facility] CLIA [id number] [address] [place] [address] [place] MCHC (RBC) [Mass/Vol] 34.8 g/dL Normal 30.5-36.0 [facility] Comment on above: Order Comment: Speci men Type: BLOOD SPECIMEN Ordering Facility: [facility] Address: [address] [place] [address] Performed By: #### L [id number], , 11599-2, #### [facility] CLIA [id number] [address] [place] [address] [place] MCV (RBC) [Entitic vol] 89.5 fL Normal 80.0-100.0 [facility] Comment on above: Order Comment: Speci men Type: BLOOD SPECIMEN Ordering Facility: [facility] Address: [address] [place] [address] Performed By: #### L [id number], , 07179-8, #### [facility] CLIA [id number] [address] [place] [address] Monocytes (Bld) [#/Vol] 0.63 10*3/uL Normal <0.87 [facility] Comment on above: Order Comment: Speci men Type: BLOOD SPECIMEN Ordering Facility: [facility] Address: [address] [place] [address] Performed By: #### L [id number], 34627-6, 52993-3, #### [facility] CLIA [id number] [address] [place] [address] [place] Monocytes/100 WBC (Bld) 4.9 % Normal [facility] Comment on above: Order Comment: Speci men Type: BLOOD SPECIMEN Ordering Facility: [facility] Address: [address] [place] [address] Performed By: #### L [id number], 87839-5, 12423-8, 03246-5 #### [facility] CLIA [id number] [address] [place] [address] [place] Neutrophils (Bld) [#/Vol] 7.47 10*3/uL Normal 1.45-7.50 [facility] Comment on above: Order Comment: Speci men Type: BLOOD SPECIMEN Ordering Facility: [facility] Address: [address] [place] [address] Performed By: #### L [id number], 85505-7, 21541-9, 49608-2 #### [facility] CLIA [id number] [address] [place] [address] [place] Neutrophils/100 WBC (Bld) 57.7 % Normal [facility] Comment on above: Order Comment: Speci men Type: BLOOD SPECIMEN Ordering Facility: [facility] Address: [address] [place] [address] Performed By: #### L [id number], 37630-3, 41144-4, 99040-4 #### [facility] CLIA [id number] [address] [place] [address] [place] Nucleated RBC (Bld) [#/Vol] 10*3/uL Normal <0.01 [facility] Comment on above: Order Comment: Speci men Type: BLOOD SPECIMEN Ordering Facility: [facility] Address: [address] [place] [address] Performed By: #### L [id number], 57595-9, 14637-8, 96961-8 #### [facility] CLIA [id number] [address] [place] [address] [place] Nucleated RBC/100 WBC (Bld) [Ratio] 0.0 /[address] [facility] Comment on above: Order Comment: Speci men Type: BLOOD SPECIMEN Ordering Facility: [facility] Address: [address] [place] [address] Performed By: #### L [id number], 81544-3, 41111-6, 40535-3 #### [facility] CLIA [id number] [address] [place] [address] [place] Platelet mean volume (Bld) [Entitic vol] 10.5 fL Normal 9.0-12.7 [facility] Comment on above: Order Comment: Speci men Type: BLOOD SPECIMEN Ordering Facility: [facility] Address: [address] [place] [address] Performed By: #### L [id number], 79921-6, 93462-0, 11395-3 #### [facility] CLIA [id number] [address] [place] [address] [place] Platelets (Bld) [#/Vol] 294 10*3/uL Normal 150-400 [facility] Comment on above: Order Comment: Speci men Type: BLOOD SPECIMEN Ordering Facility: [facility] Address: [address] [place] [address] Performed By: #### L [id number], 03665-1, 58900-0, 74052-3 #### [facility] CLIA [id number] [address] [place] [address] [place] RBC (Bld) [#/Vol] 4.59 10*6/uL Normal 3.90-5.20 [facility] Comment on above: Order Comment: Speci men Type: BLOOD SPECIMEN Ordering Facility: [facility] Address: [address] [place] [address] Performed By: #### L [id number], 63075-2, 16823-0, 74081-4 #### [facility] CLIA [id number] [address] [place] [address] [place] WBC (Bld) [#/Vol] 12.95 10*3/uL High 3.70-11.00 [facility] Comment on above: Order Comment: Speci men Type: BLOOD SPECIMEN Ordering Facility: [facility] Address: [address] [place] [address] [place] [address] Performed By: #### L [id number], 70231-0, 27352-7, 02391-8 #### [facility] CLIA [id number] [address] [place] [address] [place] CT CHEST W IVCON PEon 2023 CT CHEST W IVCON PE * * *Final Report* * * DATE OF EXAM: May 27 2024 8:01PM [facility] 0540 - CT CHEST W IVCON PE [...] mild bronchitis/bronchioli tis or reactive airway process. [employer] Supervisor: ALBINO Transcribe Date/Time: May 27 2024 8:33P Dictated by : ANIA TURNER MD This examination was interpreted and the report reviewed and electronically signed by: ANIA TURNER MD on May 27 2024 8:37PM EST [id number] N Normal [facility] Comprehensive metabolic 2000 panelon 05-27-2024 Albumin [Mass/Vol] 4.3 g/dL Normal 3.9-4.9 [facility] Comment on above: Order Comment: Speci men Type: BLOOD SPECIMEN Ordering Facility: [facility] Address: [address] [place] [address] Performed By: #### L [id number], 57053-8, 21845-5, 13502-2 #### [facility] CLIA [id number] [address] [place] [address] [place] ALP [Catalytic activity/Vol] 104 U/L Normal 34-123 [facility] Comment on above: Order Comment: Speci men Type: BLOOD SPECIMEN Ordering Facility: [facility] Address: [address] [place] [address] Performed By: #### L [id number], 06761-4, 35258-2, 54538-4 #### [facility] CLIA [id number] [address] [place] [address] [place] ALT [Catalytic activity/Vol] 26 U/L Normal 7-38 [facility] Comment on above: Order Comment: Speci men Type: BLOOD SPECIMEN Ordering Facility: [facility] Address: [address] [place] [address] Performed By: #### L [id number], 14159-6, 44434-6, 25526-6 #### [facility] CLIA [id number] [address] [place] [address] [place] Anion gap [Moles/Vol] 13 mmol/L Normal 8-15 [facility] Comment on above: Order Comment: Speci men Type: BLOOD SPECIMEN Ordering Facility: [facility] Address: [address] [place] [address] Performed By: #### L [id number], 44391-8, 77323-9, 15430-0 #### [facility] CLIA [id number] [address] [place] [address] [place] AST [Catalytic activity/Vol] 26 U/L Normal 13-35 [facility] Comment on above: Order Comment: Speci men Type: BLOOD SPECIMEN Ordering Facility: [facility] Address: [address] [place] [address] Performed By: #### L [id number], 52965-9, 77932-2, 48290-3 #### [facility] CLIA [id number] [address] [place] [address] [place] Bilirubin [Mass/Vol] mg/dL Low 0.2-1.3 [facility] Comment on above: Order Comment: Speci men Type: BLOOD SPECIMEN Ordering Facility: [facility] Address: [address] [place] [address] Performed By: #### L [id number], , 92645-9, 72303-4 #### [facility] CLIA [id number] [address] [place] [address] [place] Calcium [Mass/Vol] 10.0 mg/dL Normal 8.5-10.2 [facility] Comment on above: Order Comment: Speci men Type: BLOOD SPECIMEN Ordering Facility: [facility] Address: [address] [place] [address] Performed By: #### L [id number], 65219-5, 69116-9, 93352-7 #### [facility] CLIA [id number] [address] [place] [address] [place] Chloride [Moles/Vol] 100 mmol/L Normal 98-107 [facility] Comment on above: Order Comment: Speci men Type: BLOOD SPECIMEN Ordering Facility: [facility] Address: [address] [place] [address] Performed By: #### L [id number], 57040-2, 51089-6, 08924-1 #### [facility] CLIA [id number] [address] [place] [address] [place] CO2 [Moles/Vol] 23 mmol/L Normal 22-30 [facility] Comment on above: Order Comment: Hue rizzo Type: BLOOD SPECIMEN Ordering Facility: [facility] Address: [address] [place] [address] Performed By: #### L [id number], 35782-1, 03030-7, 01841-9 #### [facility] CLIA [id number] [address] [place] [address] [place] Creatinine [Mass/Vol] 0.83 mg/dL Normal 0.58-0.96 [facility] Comment on above: Order Comment: Hue rizzo Type: BLOOD SPECIMEN Ordering Facility: [facility] Address: [address] [place] [address] Performed By: #### L [id number], 16279-3, 47944-6, 52107-4 #### [facility] CLIA [id number] [address] [place] [address] [place] Creatinine and Glomerular filtration rate.predicted panel (S/P/Bld) 86 mL/min/1.73m??? Normal >=60 [facility] Comment on above: Order Comment: Hue rizzo Type: BLOOD SPECIMEN Ordering Facility: [facility] Address: [address] [place] [address] Result Comment: Payton mated Glomerular Filtration Rate [...] reflect actual GFR. Performed By: #### L [id number], 63718-5, 87963-8, 71817-1 #### [facility] CLIA [id number] [address] [place] [address] [place] Glucose [Mass/Vol] 200 mg/dL High 74-99 [facility] Comment on above: Order Comment: Hue rizzo Type: BLOOD SPECIMEN Ordering Facility: [facility] Address: [address] [id number] Result Comment: The [place] [employer] (ADA) provides guidance for cutoff [...] Standards of Medical Care in Diabetes 2016, [place] [employer]. Diabetes Care. 2016.39(Suppl 1). Performed By: #### L [id number], 68349-5, 46612-9, 89355-1 #### [facility] CLIA [id number] [address] [place] [address] [place] Potassium [Moles/Vol] 3.9 mmol/L Normal 3.7-5.1 [facility] Comment on above: Order Comment: Speci men Type: BLOOD SPECIMEN Ordering Facility: [facility] Address: [address] [place] [address] Performed By: #### L [id number], 79832-4, 09038-9, 88687-8 #### [facility] CLIA [id number] [address] [place] [address] [place] Protein [Mass/Vol] 7.7 g/dL Normal 6.3-8.0 [facility] Comment on above: Order Comment: Speci men Type: BLOOD SPECIMEN Ordering Facility: [facility] Address: [address] [place] [address] Performed By: #### L [id number], 33784-1, 98560-3, 73819-1 #### [facility] CLIA [id number] [address] [place] [address] [place] Sodium [Moles/Vol] 136 mmol/L Normal 136-144 [facility] Comment on above: Order Comment: Speci men Type: BLOOD SPECIMEN Ordering Facility: [facility] Address: [address] [id number] Performed By: #### L [id number], 98158-9, 76604-0, 60695-2 #### [facility] CLIA [id number] [address] [place] [address] [facility] Urea nitrogen [Mass/Vol] 17 mg/dL Normal 7- [facility] Comment on above: Order Comment: Speci men Type: BLOOD SPECIMEN Ordering Facility: [facility] Address: [address] [id number] Performed By: #### L [id number], 48244-7, 57977-8, 15621-4 #### [facility] CLIA [id number] [address] [place] [address] [facility] ECG COMPLETEon 05-27-2024 ECG COMPLETE Ventricular Rate : 107 BPM Atrial Rate : 107 BPM P-R Interval : 146 ms QRS Duration : 88 ms Q-T Interval : 346 ms QTC Calculation(Bazett) : 461 ms Calculated P [place] : 62 degrees Calculated R [place] : 72 degrees Calculated T [place] : 50 degrees Sinus tachycardia Possible Left atrial enlargement Borderline ECG No previous ECGs available Confirmed by GLADIS CUELLO MD ([id number]) on 05/31/2024 3:24:11 PM NAME : KARLIE GOVEA PID : [id number] : 1975 Gender : Female Race : ORD : [id number] Procedure Date : May 27 2024 16:12:12 Edit Date : May 31 2024 15:24:14 Diagnosis: Sinus tachycardia Possible Left atrial enlargement Borderline ECG No previous ECGs available Confirmed by GLADIS CUELLO MD ([id number]) on 05/31/2024 3:24:11 PM Test Reason : HCS Location : 3 : ED Overread By : GLADIS CUELLO MD Edited By : GLADIS CUELLO MD Referred By : , Acquired by : [facility] ED NOTEon 05-27-2024 ED NOTE HNO ID: [id number] Author: MARINO QUIROGA RN Service: ? Author Type: Registered Nurse Type: ED Notes Filed: 05/27/2024 17:36 Note Text: Pt to ED 16 from ED lobby after triage and protocol orders. Ambulated with steady gait, Ambulated to bathroom to void, then to ED 16. Placed in gown, on radiographer cardiac catheterization, NIBBP, cont SPO2. States increased pain to chest with ambulation/exertion. ED Physician Dr Henderson at bedside to assess pt and discuss plan of care. [facility] ED PROV NOTEon 05-27-2024 ED PROV NOTE HNO ID: [id number] Author: RADHA HENDERSON MD Service: ? 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 Said her heart rate has been up [...] MUSCLES AXILLARY LYMPH NODES 2010 bilateral - [place] - RPR 1ST INGUN HRNA AGE 4 [...] - Abnormal; No (more content not included)... [facility] ED Triage Noteon 05-27-2024 ED Triage Note HNO ID: [id number] Author: SUNDAY CALLEJAS APRN.CNP Service: Emergency Medicine [...] for review (EKG) SIGNATURE: Sunday Callejas APRN.CHRISTINA [facility] Fibrin D-dimer FEU (PPP) [Ma ss/Vol]on 05-27-2024 Fibrin D-dimer DDU IA (Bld) [Mass/Vol] 234 ng/mL DDU High <=230 [facility] Comment on above: Order Comment: Speci men Type: BLOOD SPECIMEN Ordering Facility: [facility] Address: [address] [place] [address] Performed By: #### 4 8065-7 #### [facility] CLIA [id number] [address] [place] [address] [place] HIGH SENSITIVITY TROPONIN T (INITIAL)on 05-27-2024 Troponin T.cardiac High sensitivity method [Mass/Vol] 13 ng/L High <12 [facility] Comment on above: Order Comment: Speci men Type: BLOOD SPECIMEN Ordering Facility: [facility] Address: [address] [place] [address] Performed By: #### L [id number], 75381-0, 19321-4, 04341-6 #### [facility] CLIA [id number] [address] [place] [address] [place] HIGH SENSITIVITY TROPONIN T (SECOND)on 05-27-2024 Troponin T.cardiac High sensitivity method [Mass/Vol] 8 ng/L Normal <12 [facility] Comment on above: Order Comment: Speci men Type: BLOOD SPECIMEN Ordering Facility: [facility] Address: [address] [place] [address] Performed By: #### L [id number] #### [facility] CLIA [id number] [address] [place] [address] [place] HIGH SENSITIVITY TROPONIN T (THIRD) 3 HRS AFTER INITIALon 05-27-2024 Troponin T.cardiac High sensitivity method [Mass/Vol] 9 ng/L Normal <12 [facility] Comment on above: Order Comment: Speci men Type: BLOOD SPECIMEN Ordering Facility: [facility] Address: [address] [place] [address] Performed By: #### L [id number], 54114-6, 47872-1, 86697-9 #### [facility] CLIA [id number] [address] [place] [address] [place] Magnesium SerPl-mCncon 05-27 Magnesium [Mass/Vol] 1.9 mg/dL Normal 1.7-2.3 [facility] Comment on above: Order Comment: Speci men Type: BLOOD SPECIMEN Ordering Facility: [facility] Address: [address] [place] [address] Performed By: #### L [id number], 12479-3, 83875-1, 05620-1 #### [facility] CLIA [id number] [address] [place] [address] [place] NT-proBNP SerPl-mCncon 05-27 Natriuretic peptide.B prohormone N-Terminal [Mass/Vol] <36 Normal <125 [facility] Comment on above: Order Comment: Speci men Type: BLOOD SPECIMEN Ordering Facility: [facility] Address: [address] [place] [address] Performed By: #### L [id number], 02176-6, 90002-0, 24247-8 #### [facility] CLIA [id number] [address] [place] [address] [place] SEPSIS LACTATEon 05-27-2024 Lactate [Moles/Vol] 1.6 mmol/L Normal 0.0-2.0 [facility] Comment on above: Order Comment: Speci men Type: BLOOD SPECIMEN Ordering Facility: [facility] Address: [address] [place] [address] Performed By: #### L [id number], 18710-5, 32703-3, 94610-8 #### [facility] CLIA [id number] [address] [place] [address] [place] Urinalysis complete panel (U )on 05-27-2024 Bilirubin Ql (U) Negative Normal Negative [facility] Comment on above: Order Comment: Speci men Type: BLOOD SPECIMEN Ordering Facility: [facility] Address: [address] [place] [address] Performed By: #### L [id number], 06372-4, 37266-7, 51990-8 #### [facility] CLIA [id number] [address] [place] [address] [place] Clarity (Unsp spec) Clear Normal Clear [facility] Comment on above: Order Comment: Speci men Type: BLOOD SPECIMEN Ordering Facility: [facility] Address: [address] [place] [address] Performed By: #### L [id number], 10870-2, 45169-0, 80403-4 #### [facility] CLIA [id number] [address] [place] [address] [place] Color (U) Yellow Normal Yellow [facility] Comment on above: Order Comment: Speci men Type: BLOOD SPECIMEN Ordering Facility: [facility] Address: [address] [place] [address] Performed By: #### L [id number], 96131-9, 49230-0, 30178-7 #### [facility] CLIA [id number] [address] [place] [address] [place] Glucose Test strip (U) [Mass/Vol] 1+ Abnormal Negative [facility] Comment on above: Order Comment: Speci men Type: BLOOD SPECIMEN Ordering Facility: [facility] Address: [address] [place] [address] Performed By: #### L [id number], 56654-9, 63126-2, 95574-1 #### [facility] CLIA [id number] [address] [place] [address] [place] Hemoglobin Ql (U) Negative Normal Negative [facility] Comment on above: Order Comment: Speci men Type: BLOOD SPECIMEN Ordering Facility: [facility] Address: [address] [place] [address] Performed By: #### L [id number], 19594-4, 07010-1, 06695-5 #### [facility] CLIA [id number] [address] [place] [address] [place] Ketones Ql (U) Negative Normal Negative [facility] Comment on above: Order Comment: Speci men Type: BLOOD SPECIMEN Ordering Facility: [facility] Address: [address] [place] [address] Performed By: #### L [id number], 09071-1, 02536-0, 68303-7 #### [facility] CLIA [id number] [address] [place] [address] [place] Leukocyte esterase Test strip Ql (U) Negative Normal Negative [facility] Comment on above: Order Comment: Speci men Type: BLOOD SPECIMEN Ordering Facility: [facility] Address: [address] [place] [address] Performed By: #### L [id number], 23093-0, 93499-3, 72539-3 #### [facility] CLIA [id number] [address] [place] [address] [place] Nitrite Ql (U) Negative Normal Negative [facility] Comment on above: Order Comment: Speci men Type: BLOOD SPECIMEN Ordering Facility: [facility] Address: [address] [place] [address] Performed By: #### L [id number], 92541-1, 77959-1, 27670-8 #### [facility] CLIA [id number] [address] [place] [address] [place] pH (U) 6.0 [pH] Normal 5.0-8.0 [facility] Comment on above: Order Comment: Speci men Type: BLOOD SPECIMEN Ordering Facility: [facility] Address: [address] [place] [address] Performed By: #### L [id number], , 77890-2, 23510-2 #### [facility] CLIA [id number] [address] [place] [address] [place] Protein (U) [Mass/Vol] Trace Abnormal Negative [facility] Comment on above: Order Comment: Speci men Type: BLOOD SPECIMEN Ordering Facility: [facility] Address: [address] [place] [address] Performed By: #### L [id number], 82875-4, 91189-4, 13706-8 #### [facility] CLIA [id number] [address] [place] [address] [place] RBC LM.HPF (Urine sed) [#/Area] 0-3 /HPF Normal 0-3 /HPF [facility] Comment on above: Order Comment: Speci men Type: BLOOD SPECIMEN Ordering Facility: [facility] Address: [address] [place] [address] Performed By: #### L [id number], 01221-6, 52188-9, 37919-5 #### [facility] CLIA [id number] [address] [place] [address] [place] Specific gravity (U) [Rel density] 1.025 Normal 1.005-1.030 [facility] Comment on above: Order Comment: Speci men Type: BLOOD SPECIMEN Ordering Facility: [facility] Address: [address] [place], [place] [address] Performed By: #### L [id number], 45977-5, 36764-2, 78905-8 #### [facility] CLIA [id number] [address] [place] [address] [place] Urobilinogen Ql (U) 0.2 EU/dL Normal 0.2-1.0 EU/dL [facility] Comment on above: Order Comment: Speci men Type: BLOOD SPECIMEN Ordering Facility: [facility] Address: [address] [place] [address] Performed By: #### L [id number], 41009-2, 10541-5, 03477-1 #### [facility] CLIA [id number] [address] [place] [address] [place] WBC LM.HPF (Urine sed) [#/Area] 0-5 /HPF Normal 0-5 /HPF [facility] Comment on above: Order Comment: Speci men Type: BLOOD SPECIMEN Ordering Facility: [facility] Address: [address] [place], [place] [address] Performed By: #### L [id number], 25069-0, 23687-1, 72251-5 #### [facility] CLIA [id number] [address] [place] [address] [place] XR CHEST 1V [...] normal limits. IMPRESSION: No acute cardiopulmonary process. [employer] Supervisor: PSCB Transcribe Date/Time: May 27 2024 4:58P Dictated by : TREY KUMAR MD This examination was interpreted and the report reviewed and electronically signed by: TREY KUMAR MD on May 27 2024 4:59PM EST [id number] [facility] XR SHOULDER MINIMUM 2 VIEWS RIGHTon 08-28-2023 XR SHOULDER MINIMUM 2 VIEWS RIGHT ORIGINAL EXAMINATION: TWO XRAY VIEWS OF THE RIGHT RUCPQRAY41/21/2023 7:09 pm COMPARISON: None HISTORY: ORDERING SYSTEM [...] PM Ordering Provider: ABI Black [facility] ([place]) XR ELBOW MINIMUM 3 VIEWS RIG HTon [...] Date: 03/21/2023 6:05:27 PM Ordering Provider: [facility] ([place]) XR TOES 5TH DIGIT 3 VIEWS RI [...] 03/21/2023 6:06:06 PM Ordering Provider: CAR BONILLA [facility] ([place]) Hemoglobin A1con 03-14-2021 Glucose [Mass/Vol] 229 mg/dL Normal [facility] Reference Lab Comment on above: Performed By: #### H BA1C #### [facility] Routine Lab [address] [place], [place] [address] HbA1c (Bld) [Mass fraction] 9.6 % High 4.3-5.6 [facility] Comment on above: Performed By: #### H BA1C #### [facility] Routine Lab [address] [place], [place] [address] Urgent Care Visit Reporton 0 01-19-2021 Urgent Care Visit Report [facility] [place] [id number] OFFICE VISIT Date of Service: 01/19/21 MR#: [id number] Acct: [id number] Name: KARLIE GOVEA Rep #: [id number] : 1975 Provider: BOBBY sofia Age/Sex: 46/F Location: [facility] Status: Signed Intake Intake Visit Reasons: PE PHYSICAL/[facility] [address] Chief Complaint: chest pain Allergies No Known Allergies Allergy (Verified 05/21/19 08:39) [facility] Medical History (Updated 01/19/21 @ 11:58 by [...] Cosigner Signature: Date (if applicable) CC: Normal [facility] LUIS MIGUEL by IFAon 09-22-2020 LUIS MIGUEL Pattern ANANOT Normal [facility] Comment on above: Performed By: #### R F #### [facility] Routine Lab [address] [place], [place] [address] #### ANAIFS #### [facility] Immuno Assay [address] [place], [place] [address] LUIS MIGUEL Titer Normal Negative [facility] Comment on above: Result Comment: Nega tive Normal range : negatie at <1:80 serum dilution. Performed By: #### R F #### [facility] Routine Lab [address] [place] [address] #### ANAIFS #### [facility] Immuno Assay [address] [id number] Nuclear Ab IF (S) [Titer] Negative Normal Negative [facility] Lab Comment on above: Performed By: #### R F #### [facility] Routine Lab [address] [address] #### ANAIFS #### [facility] [facility] [address] [address] Rheumatoid Factoron 09-22-19 21 Rheumatoid Factor <10 Normal <16 [facility] Comment on above: Performed By: #### R F #### [facility] Routine [facility] [address] [address] #### ANAIFS #### [facility] [address] [address] EDREPBanner 08-20-2019 EDREPT [facility] Patient: KARLIE GOVEA EMERGENCY DEPARTMENT PHYSICIAN REPORT Admit Date: 08/20/19 /Age: 0501/11/1975/44/F ED Physician: Jan Oleary MD Med Rec #: [id number] History Of Present Illness - General Stated [...] for migraine. Disposition: HOME/SELF CARE ROUTINE Referrals: [facility],DOCTOR [Family Provider] - Condition: Good 08/20/19 1928 [id number] [phone] CC: [facility] PHYSICIAN Normal [facility] CT ANGIOGRAM HEADon 01-21-20 CT ANGIOGRAM [...] images were generated on a separate independent [employer] workstation. Dose reduction techniques were achieved by [...] aneurysm.IMPRESSION:N ormal CTA of the head.Workstation ID: [id number] d by: KASIE DELUCA on FriJanuary 20, 2018 11:05:46 PM EDTTranscribed by: KASIE DELUCA on FriJanuary 20, 2018 11:05:46 PM EDTFinalized by: KASIE DLEUCA on FriJanuary 20, 2018 11:05:46 PM EDT Normal [facility] Comment on above: Order Comment: Reaso n [...] massIllness/OtherEnco unter Type: InitialAdditional signs and symptoms: [facility] PROVIDED DIAGNOSIS CODES:R51 Acute nonintractable [...] air cells are clear. Nasopharynx is normal. Online Marketer spaces are normal. Orbital contents appear normal. [...] or evidence of metastatic disease. No acute findings.[employer] tation ID: [id number] by: TO HANSEN on FriJanuary 20, 2018 8:48:18 AM EDTTranscribed by: FAN PETERS on FriJanuary 20, 2018 9:32:03 AM EDTFinalized by: TO HANSEN on FriJanuary 20, 2018 10:21:33 AM EDT [facility] Comment on above: Order Comment: Reaso [...] known risk factors.Radiology 2005; 237:395-400SZD/dbgWor kstation ID: [id number] by: SHANNEN WELLS on FriJanuary 19, 2018 9:49:50 PM EDTTranscribed by: MARINA GIORDANO on FriJanuary 19, 2018 9:57:40 PM EDTFinalized by: SHANNEN WELLS on FriJanuary 20, 2018 1:58:28 PM EDT [facility] Comment on above: Order Comment: Reaso [...] known risk factors.Radiology 2005; 237:395-400SZD/dbgWor kstation ID: [id number] by: SHANNEN WELLS on FriJanuary 19, 2018 9:49:50 PM EDTTranscribed by: MARINA GIORDANO on FriJanuary 19, 2018 9:57:40 PM EDTFinalized by: SHANNEN WELLS on FriJanuary 20, 2018 1:58:28 PM EDT Normal [facility] Comment on above: Order Comment: Reaso n for exam?:BEE, off balance, difficulty with concentration; history of breast cancerInjury/Trauma or Illness?:Illness/OtherHow long have you had these symptoms (acute/chronic)?:AcuteType of Exam?:InitialAdditional signs and symptoms?:breast ca 6 years ago Vital Signs Date Time Vital Sign Value Performing Clinician Tellyi silvano 07-16-2025 15:34-0500 Diastolic Blood Pressure Non-Invasive 82 mm[Hg] JERICHO SULTANA MD [facility] 07-16-2025 15:34-0500 Heart rate 98 /min JERICHO SULTANA MD [facility] 07-16-2025 15:34-0500 Respiratory rate 16 /min JERICHO SULTANA MD [facility] 07-16-2025 15:34-0500 Systolic Blood Pressure Non-Invasive 136 mm[Hg] JERICHO SULTANA MD [facility] 07-16-2025 14:00-0500 Blood Pressure Cuff Size JERICHO SULTANA MD [facility] 07-16-2025 14:00-0500 Blood Pressure Location JERICHO SULTANA MD [facility] 07-16-2025 14:00-0500 Blood Pressure Method JERICHO SULTANA MD [facility] 07-16-2025 14:00-0500 Body temperature 97.16 [degF] JERICHO SULTANA MD [facility] 07-16-2025 14:00-0500 Diastolic Blood Pressure Non-Invasive 79 mm[Hg] JERICHO SULTANA MD [facility] 07-16-2025 14:00-0500 Heart rate 105 /min JERICHO SULTANA MD [facility] 07-16-2025 14:00-0500 Systolic Blood Pressure Non-Invasive 145 mm[Hg] JERICHO SULTANA MD [facility] 01-16-2025 01:53-0400 Heart rate 95 /min THERON STOKES MD [facility] 01-16-2025 00:58-0400 Heart rate 98 /min THERON STOKES MD [facility] 01-16-2025 00:58-0400 Respiratory rate 20 /min THERON STOKES MD [facility] 01-16-2025 00:11-0400 Diastolic Blood Pressure Non-Invasive 72 mm[Hg] THERON STOKES MD [facility] 01-16-2025 00:11-0400 Heart rate 106 /min THERON STOKES MD [facility] 01-16-2025 00:11-0400 Respiratory rate 20 /min THERON STOKES MD [facility] 01-16-2025 00:11-0400 Systolic Blood Pressure Non-Invasive 111 mm[Hg] THERON STOKES MD [facility] 01-15-2025 23:25-0400 Body temperature 98.06 [degF] THERON STOKES MD [facility] 01-15-2025 23:25-0400 Diastolic Blood Pressure Non-Invasive 84 mm[Hg] THERON STOKES MD [facility] 01-15-2025 23:25-0400 Respiratory rate 20 /min THERON STOKES MD [facility] 01-15-2025 23:25-0400 Systolic Blood Pressure Non-Invasive 129 mm[Hg] THERON STOKES MD [facility] 08-27-2024 16:10-0500 SaO2% (BldA) [Mass fraction] 96.4 % FAUSTINO FROMMELT DO [facility] 08-27-2024 16:06-0500 Body temperature 98.96 [degF] FAUSTINO FROMMELT DO [facility] 08-27-2024 16:06-0500 Diastolic Blood Pressure Non-Invasive 77 mm[Hg] FAUSTINO FROMMELT DO [facility] 08-27-2024 16:06-0500 Heart rate 93 /min FAUSTINO FROMMELT DO [facility] 08-27-2024 16:06-0500 Respiratory rate 16 /min FAUSTINO FROMMELT DO [facility] 08-27-2024 16:06-0500 Systolic Blood Pressure Non-Invasive 116 mm[Hg] FAUSTINO FROMMELT DO [facility] 08-28-2023 18:01-0500 Body temperature 98.42 [degF] DR ABI LOPEZ MD [facility] 08-28-2023 18:01-0500 Body weight 79.[address] ABI LOPEZ MD [facility] 08-28-2023 18:01-0500 Diastolic Blood Pressure Non-Invasive 78 mm[Hg] DR ABI LOPEZ MD [facility] 08-28-2023 18:01-0500 Heart rate 88 /min DR ABI LOPEZ MD [facility] 08-28-2023 18:01-0500 Respiratory rate 20 /min DR ABI LOPEZ MD [facility] 08-28-2023 18:01-0500 Systolic Blood Pressure Non-Invasive 142 mm[Hg] DR ABI LOPEZ MD [facility] 03-21-2023 18:40-0400 Diastolic Blood Pressure Non-Invasive 84 1 CAR BONILLA MD [facility] 03-21-2023 18:40-0400 Heart rate 108 /min CAR BONILLA MD [facility] 03-21-2023 18:40-0400 Respiratory rate 22 /min CAR BONILLA MD [facility] 03-21-2023 18:40-0400 Systolic Blood Pressure Non-Invasive 126 1 CAR BONILLA MD [facility] 03-21-2023 17:22-0400 Body temperature 98.06 [degF] CAR BONILLA MD [facility] 03-21-2023 17:22-0400 Diastolic Blood Pressure Non-Invasive 87 1 CAR BONILLA MD [facility] 03-21-2023 17:22-0400 Heart rate 124 /min CAR BONILLA MD [facility] 03-21-2023 17:22-0400 Respiratory rate 24 /min CAR BONILLA MD [facility] 03-21-2023 17:22-0400 Systolic Blood Pressure Non-Invasive 129 1 CAR BONILLA MD [facility] Encounters Encounter Date Encounter Type Care Provider Facility Start: 07-16-2025 End: 07-16-2025 Emergency department patient visit JERICHO SULTANA MD [facility] Start: 05-30-2025 ambulatory CHEYENNE BARNES [facility] Start: 05-03-2025 End: 05-03-2025 Emergency department patient visit HARITHA SYLVESTER DO [facility] Start: 04-28-2025 End: 04-28-2025 ambulatory LIBBY SUAZO DO Facility[facility] Start: 04-28-2025 End: 04-28-2025 Patient encounter procedure LIBBY SUAZO DO [facility] Start: 04-05-2025 ambulatory KATHY GAMING Facili ty:[facility] Start: 03-15-2025 End: 03-15-2025 Emergency department patient visit DR ABI LOPEZ MD [facility] Start: 03-04-2025 End: 03-04-2025 ambulatory LIBBY SUAZO DO Facility:[facility] Start: 03-04-2025 Encounter for genera l adult medical examination without abnormal findings LIBBY SUAZO DO [facility] Start: 03-04-2025 End: 03-04-2025 Patient encounter procedure LIBBY Arcelia SUAZO DO [facility] Start: 01-29-2025 End: 01-29-2025 Emergency department patient visit JERICHO Paniagua TEODORO [facility] Start: 01-15-2025 End: 01-16-2025 Emergency department patient visit THERON STOKES MD [facility] Start: 10-27-2024 End: 10-28-2024 Emergency department [facility] Start: 08-27-2024 End: 08-27-2024 Emergency department patient visit FAUSTINO DEYSISHERRIE GAVIN [facility] Start: 05-29-2024 Emergency department patient visit Facility:[id number] Start: 08-28-2023 End: 08-28-2023 Emergency department patient visit DR ABI LOPEZ MD Facility:[facility] Start: 08-28-2023 End: 08-28-2023 Emergency department patient visit DR ABI LOPEZ MD [facility] Start: 03-21-2023 End: 03-21-2023 Emergency department patient visit CAR BONILLA Facility:[facility] Start: 03-21-2023 End: 03-21-2023 Emergency department patient visit CAR BONILLA MD [facility] Start: 08-20-2019 End: 08-20-2019 Emergency department patient visit JAN OLEARY Facility:[facility] Start: 01-19-2018 End: 01-21-2018 Ambulatory GUERO Paniagua IDAIXA [facility] Start: 06-14-2015 ambulatory TRANG Sahu) [facility] Procedures Date Procedure Procedure Detail Performing Clinician Start: 10-27-2024 Urinalysis CHEYENNE MONTSE PATTERSON Comment on above: Result Comment: URIN ALYSIS Performed By: #### 2 [id number] #### [facility],[address] [place] [id number] Cholecystectomy CAR Arevalo MD Hysterectomy CAR Silver Simple mastectomy CAR BARBOSA MD Immunizations Immunization Date Immunization Notes Care Provider Fa cili 04-18-2021 SARS-CoV-2 (COVID-19 ) [id number] vaccine THERON STOKES MD [facility] Comment on above: Result Comment: 2024: TPV4 Payers Date Payer Category Payer Private Health Insurance [id number] 2025 Unknown [id number] 2023 Unknown [id number] 2023 Unknown [id number] 2023 Medicaid [id number] 2023 Private Health Insurance [id number] 2011 Medicare [id number] 1974 Unknown [id number] 2.16.8 40.1.761277.3.579.2. 1974 Unknown [id number] 2.16.8 40.1.667748.3.579.2. 1974 Unknown [id number] 2.16.8 40.1.817146.3.579.2. 1974 Unknown [id number] 2.16.8 40.1.147524.3.579.2. 1974 Unknown [id number] 2.16.8 40.1.807019.3.579.2. 1974 Unknown [id number] 2.16. 840.1.034056.3.579.2.627 1974 Unknown [id number] 2.16. 840.1.145412.3.579.2. 1974 Unknown [id number] 2.16. 840.1.981530.3.579.2. 1974 Unknown [id number] 2.16. 840.1.436779.3.579.2. 1974 Unknown [id number] 2.16. 840.1.473189.3.579.2. 1974 Unknown [id number] 2.16. 840.1.899141.3.579.2. 1974 Unknown [id number] 2.16.8 40.1.737442.3.579.2. 1974 Unknown [id number] 2.16.8 40.1.681701.3.579.2.627 Medicaid Medicare [id number] Medicare [id number] Unknown [id number] 2.16.8 40.1.726548.3.579.2.383 Social History Date Type Detail Facility Start: 03-21-2023 Tobacco smoking status Heavy t obacco smoker (finding) [facility] Sex Assigned At [facility] Start: 02-16-2014 Sex Female (finding) [facility] Start: 07-16-2025 No, per patient [facility] Functional Status Date Assessment Result Facility 07-16-2025 Functional Status [facility] 07-16-2025 Functional Status Ambulation in English, Ambulation in Room [facility] 01-16-2025 Functional Status Activity Jordan jazmynece Independent [facility] 01-15-2025 Functional Status Standard Safet y ID band on, Call device within reach, Bed in low position, Wheels locked, Upper/Half-Length side-rails up, Phone within reach, personal items within reach, Bedside Cart Locked, Visitor at bedside [facility] 08-27-2024 Functional Status Independent [facility] 08-27-2024 Functional Status Independent [facility] 08-28-2023 Functional Status Assistive Device None A [facility] 03-21-2023 Functional Status ID band on, Call device within reach, Bed in low position, Wheels locked, Bedside Cart Locked, Visitor at bedside, Safety level maintained [facility] 03-21-2023 Functional Status [facility] Mental Status Date Assessment Result Facility 07-16-2025 Mental Status Orientation Oriented x 4 [facility] 07-16-2025 Mental Status [facility] 01-16-2025 Mental Status Orientation Oriented x 4 [facility] 01-15-2025 Mental Status [facility] 08-27-2024 Mental Status Orientation Oriented x 4 [facility] 08-27-2024 Mental Status [facility] 08-28-2023 Mental Status Orientation Oriented x 4 [facility] 03-21-2023 Mental Status Orientation Oriented x 4 [facility] Clinical Notes 03-21-2023 to 07-16-2025 Note Date [...] foods again, start with small amounts of wqez-fh-gkokby, low-fat foods. These include apple sauce, toast, [...] increase stomach acid. Don't use aspirin or lolq-brg-fllbtmc pain and fever medicines, if possible. This includes nonsteroidal anti-inflammatory drugs (NSAIDs). Lose excess weight. Finish eating at least 2 hours before you go to bed or lie down. Raise the head of your bed. 4286-9312 [employer]. [address] [place] [address]. All rights reserved. This information is not intended as a substitute for professional medical care. Always follow your healthcare professional's instructions. Follow Up Care 07/16/2025 13:50:49 With:LIBBY SUAZO DO Address: [address] [place] [phone] When:2-4 days [facility] 07-16-2025 Emergency department Discharge summary Discharge Instructions Thank you for allowing [facility] to assist you with your healthcare needs. The following is important discharge information regarding your hospital visit. Diagnosis from Today's Visit Abdominal pain What to Do Next Instructions from Your Care Team No qualifying data available. Post Acute Orders No qualifying data available. You Need to Schedule the Following Appointments Follow Up with LIBBY SUAZO DO When:Within 2-4 days Where:[address] [place] [phone] Allergies No Known Medication Allergies misc non-codified [...] may report side effects to FDA at 9-458-AXE-9256. What other drugs will affect ondansetron? Ondansetron can cause a serious heart problem. Your risk may be higher if you also use certain other medicines for infections, asthma, heart problems, high blood pressure, depression, mental illness, cancer, malaria, or HIV. Many drugs can affect ondansetron. This includes prescription and efxx-mtg-vhfemvo medicines, vitamins, and herbal products. Not all [...] to ensure that the information provided by [employer]. ('[employer]') is accurate, up-to-date, and complete, but no guarantee is made to that effect. Drug information contained herein may be time sensitive. [employer] information has been compiled for use by healthcare practitioners and consumers in the [place] and therefore [employer] does not warrant that uses outside of the [place] are appropriate, unless specifically indicated otherwise. [employer] drug information does not endorse drugs, diagnose patients or recommend therapy. [employer] drug information is an informational resource designed [...] effective or appropriate for any given patient. [employer] does not assume any responsibility for any aspect of healthcare administered with the aid of information [employer] provides. The information contained herein is not intended to cover all possible uses, directions, precautions, warnings, drug interactions, allergic reactions, or adverse effects. If you have questions about the drugs you are taking, check with your doctor, nurse or pharmacist. Copyright 0652-4776 [employer]. Version: 17.01. Revision Date: 06/01/2024. pantoprazole (oral/injection) [...] may report side effects to FDA at 7-278-GAZ-0291. What other drugs will affect pantoprazole? Tell your doctor about all your other medicines, especially: digoxin; rilpivirine-containing products; methotrexate; or a diuretic or 'water pill'. This list is not complete. Other drugs may affect pantoprazole, including prescription and txrc-iwc-yqxknph medicines, vitamins, and herbal products. Not all [...] to ensure that the information provided by [employer]. ('[employer]') is accurate, up-to-date, and complete, but no guarantee is made to that effect. Drug information contained herein may be time sensitive. [employer] information has been compiled for use by healthcare practitioners and consumers in the [place] and therefore [employer] does not warrant that uses outside of the [place] are appropriate, unless specifically indicated otherwise. [employer] drug information does not endorse drugs, diagnose patients or recommend therapy. [employer] drug information is an informational resource designed [...] effective or appropriate for any given patient. [employer] does not assume any responsibility for any aspect of healthcare administered with the aid of information [employer] provides. The information contained herein is not intended to cover all possible uses, directions, precautions, warnings, drug interactions, allergic reactions, or adverse effects. If you have questions about the drugs you are taking, check with your doctor, nurse or pharmacist. Copyright 6249-2385 [employer]. Version: 22.02. Revision Date: 07/27/2024. lansoprazole (yuliya [...] a broken bone while taking this medicine usp or more than once per day. What is lansoprazole? Lansoprazole is a proton pump inhibitor that is used to treat and prevent stomach and intestinal ulcers, erosive esophagitis (damage to the esophagus from stomach acid), and other conditions involving excessive stomach acid such as Bravo-Marx syndrome. Egta-qos-dqwqwnd lansoprazole (Prevacid OTC) is used to treat [...] bone mineral density (osteopenia). Do not use skws-vcp-lnmphhp lansoprazole (Prevacid OTC) without the advice of [...] may report side effects to FDA at 1-705-RVA-7241. What other drugs will affect lansoprazole? Sucralfate can make it harder for your body to absorb lansoprazole. Wait at least 30 minutes after taking lansoprazole before you take sucralfate. Tell your doctor if you use methotrexate. Many drugs can affect lansoprazole, and some drugs should not be used at the same time. This includes prescription and jzvs-oyw-wzlxgkl medicines, vitamins, and herbal products. Not all [...] to ensure that the information provided by [employer]. ('[employer]') is accurate, up-to-date, and complete, but no guarantee is made to that effect. Drug information contained herein may be time sensitive. [employer] information has been compiled for use by healthcare practitioners and consumers in the [place] and therefore [employer] does not warrant that uses outside of the [place] are appropriate, unless specifically indicated otherwise. [employer] drug information does not endorse drugs, diagnose patients or recommend therapy. [employer] drug information is an informational resource designed [...] effective or appropriate for any given patient. [facility] does not assume any responsibility for any aspect of healthcare administered with the aid of information [facility] provides. The information contained herein is not intended to cover all possible uses, directions, precautions, warnings, drug interactions, allergic reactions, or adverse effects. If you have questions about the drugs you are taking, check with your doctor, nurse or pharmacist. Copyright 4004-6856 [employer]. Version: 16.. Revision Date: 10/20/2020. Education Materials [...] foods again, start with small amounts of jogl-yf-ujpjzt, low-fat foods. These include apple sauce, toast, [...] increase stomach acid. Don't use aspirin or xdtn-ubt-fpxtllq pain and fever medicines, if possible. This includes nonsteroidal anti-inflammatory drugs (NSAIDs). Lose excess weight. Finish eating at least 2 hours before you go to bed or lie down. Raise the head of your bed. 3577-6728 [employer]. [address] [place] [address], [place] [address]. All rights reserved. This information is not intended as a substitute for professional medical care. Always follow your healthcare professional's instructions. Additional Information VACCINATE! IT SAVES LIVES! Members of the community who have not yet received the COVID-19 vaccine and would like to receive it can visit one of [facility] vaccine clinics. There are many vaccine clinic locations within the [facility]. For locations and available times, please visit www.[email or web address].[place]. gov/. It is important to note that some COVID mobile vaccine clinics are held outdoors and may be canceled in rainy or stormy conditions. To learn more about pediatric vaccinations (ages 5-11), we invite you to visit the [facility] webpage. https://www.[employer].org/p ages/5938-Nsqoe-Dlptismmzol-Freq qfnhhd-Cxslp-Srydddekp.html To learn more about the COVID-19 vaccine, we invite you to visit the CDC website for a list of frequently asked questions. https://www.cdc.gov/coronavirus/ 2019-ncov/vaccines/faq.html [employer] Patient Portal Access Instructions: Stay connected with your healthcare team and access your personal medical information anytime with the [employer] Patient Portal. If you would like a full copy of your medical records please contact the [facility] Medical Records Department Friday through Friday between 8a.m. and 4:30p.m. Please follow the directions below to access the portal: 1.Access the email account you provided upon registration to the hospital.2.Look for an invitation email from [facility].3.Open the email and access the invitation link: Accept Invitation to [facility]4.Fill in the required rico to create your account. To access your account, visit [employer] or scan the QR code above. Click [...] you will allow to register on the [facility] Patient Portal for access to your information. You can also access the [facility] Patient Portal on the [employer] eder. Simply click on Health Records under Health Data and then click on the QM Power logo. HOW TO SAFELY DISPOSE OF PRESCRIPTION [...] Call your local pharmacy or go to http://[email or web address].[email or web address] to find one close to you.3.Make use of household items: Use cat litter or old coffee grounds to dispose medications if other options are not available. Mix your drugs with these household products, seal them in an airtight container and throw it into the garbage. Call [facility]: [phone] to be sure your drugs can be [...] aware that I should contact my doctor. Patient/Paper Coater Signature: Date/Time: Relationship to Patient: Witness Name/Signature: Date/Time: [facility] 07-16-2025 Note Exam Date Time Procedure Performing Provider Status 07/16/25 3:[address] Abd/Pelvis w/ IV Contrast Only LARA GRAY DO; Auth (Verified) [id number] ORIGINAL EXAMINATION: CT OF THE ABDOMEN AND PELVIS WITH ZDYJCDKD14/8/2025 2:19 pm TECHNIQUE: CT of the abdomen [...] 07/16/2025 3:40:03 PM Ordering Provider: JERICHO SULTANA [facility]11-08-2025 Note* Exam Date Time Procedure Performing Provider Status 07/16/25 2:32 PM EKG [ED AOH] - CV JERICHO SULTANA MD; Auth (Verified) ECG Final Report Sinus tachycardia Electronic Signature: JERICHO SULTANA MD 07/16/2025 16:04:59 [facility]08-27-2025 Hospital Discharge instructions Patient Education 05/03/2025 [...] alternate ice and heat. You may use zlaq-rir-vihldwl pain medicine to control pain, unless another [...] the urine Unexpected vaginal bleeding in women 0123-[address] [employer]. [address] [place] [address]. All rights reserved. This information is not intended as a substitute for professional medical care. Always follow yourhealthcare professional's instructions. Follow Up Care 05/03/2025 18:57:05 With:Go to emergency room if symptoms worsen Address:Unknown When:2-4 days With:LIBBY SUAZO DO Address: [address] [place] [phone] When:2-4 days [facility] 08-26-2025 Note Discharge Instructions Thank you for allowing [facility] to assist you with your healthcare needs. [...] with LIBBY SUAZO DO When:Within 2-4 days Where:[address] [place] [phone] Allergies NKA Medications Please ask your primary [...] alternate ice and heat. You may use fbzw-bdo-nkartqy pain medicine to control pain, unless another [...] the urine Unexpected vaginal bleeding in women 6741-7178 The [employer]. [address] [place] [address], [place] [address]. All rights reserved. This information is not intended as a substitute for professional medical care. Always follow yourhealthcare professional's instructions. Additional Information VACCINATE! IT SAVES LIVES! Members of the community who have not yet received the COVID-19 vaccine and would like to receive it can visit one of [facility] vaccine clinics. There are many vaccine clinic locations within the [facility]. For locations and available times, please visit www.gettheshot.coronavirus.[place].gov/. It is important to note that some COVID mobile vaccine clinics are held outdoors and may be canceled in rainy or stormy conditions. To learn more about pediatric vaccinations (ages 5-11), we invite you to visit the [facility] webpage. https://www.[facility].org/pages/2110-Gfory-Upkpioypdog-Kplecqcjkr-Lvkjq-Ypt stions.htmlTo learn more about the COVID-19 vaccine, we invite you to visit the CDC website for a list of frequently asked questions. https://www.cdc.gov/coronavirus/2019-ncov/vaccines/faq.html [facility] Patient Portal Access Instructions: Stay connected with your healthcare team and access your personal medical information anytime with the [facility] Patient Portal. If you would like a full copy of your medical records please contact the [facility] Medical Records Department Friday through Friday between 8a.m. and 4:30p.m. Please follow the directions below to access the portal: 1.Access the email account you provided upon registration to the hospital.2.Look for an invitation email from [facility].3.Open the email and access the invitation link: Accept Invitation to [facility]4.Fill in the required rico to create your account. Sign into www.[employer] with your username and password that you [...] you will allow to register on the [facility] Patient Portal for access to your information. You can also access the [facility] Patient Portal on the [employer] eder. Simply click on Health Records under [employer] and then click on the QM Power logo. HOW TO SAFELY DISPOSE OF PRESCRIPTION [...] Call your local pharmacy or go to http://Ticket ABC.[email or web address] to find one close to you.3.Make use of household items: Use cat litter or old coffee grounds to dispose medications if other options arenot available. Mix your drugs with these household products, seal them in an airtight container andthrow it into the garbage. Call [facility]: [phone] to be sure your drugs can be [...] aware that I should contact my doctor. Patient/Paper Coater Signature: Date/Time: Relationship to Patient: Witness Name/Signature: Date/Time: [facility]08-26-2025 Note* Exam Date Time Procedure Performing Provider Status 05/03/25 9:[address] Abd/Pelvis w/ IV Contrast Only ANIYA YOON MD; Auth (Verified) [id number] ORIGINAL EXAMINATION: CT OF THE ABDOMEN AND [...] Date: 05/03/2025 11:00:50 PM Ordering Provider: HARITHA [facility]07-08-2025 Hospital Discharge instructions Patient Education 03/15/2025 15:47:14 [...] still weak. When treating a sprain, the [employer] Walker boot should be worn whenever walking for at least 4 weeks, or as long as you continue to have ankle pain. Talk to your healthcare provider for specific advice about the treatment of your condition. Air-Stirrup and SP-Walker are trademarks of [employer]. For more information about their products, see www.Group Therapy Records. 5236-1727 The [employer]. [address] [place] [address], [place] [address]. All rights reserved. This information is not [...] thin towel or cloth. You may use kmro-fby-bmdohfj pain medicine (NSAIDS or nonsteroidal anti- inflammatory [...] or is irritated You re-injure your ankle 8454-1837 The [employer]. [address] [place] [address]. All rights reserved. This information is not intended as a substitute for professional medical care. Always follow yourhealthcare professional's instructions. Follow Up Care 03/15/2025 13:04:41 With:LIBBY SUAZO DO Address: [address] [place] [address] [phone] When:2-4 days [facility] 07-08-2025 Note Discharge Instructions Thank you for allowing [facility] to assist you with your healthcare needs. The following is importantdischarge information regarding your hospital visit. What to Do Next Instructions from Your Care Team Discharge Home Equipment - Ordered -- Walking boot Left, 99 month(s), 03/15/25 15:41:00 EDT Post Acute Orders No qualifying data available. You Need to Schedule the Following Appointments Follow Up with LIBBY SUAZO DO When:Within 2-4 days Where:[address] [place] [phone] Allergies NKA Medications Please ask your primary [...] still weak. When treating a sprain, the [employer] Walker boot should be worn whenever walking for at least 4 weeks, or as long as you continue to have ankle pain. Talk to your healthcare provider for specific advice about the treatment of your condition. Air-Stirrup and SP-Walker are trademarks of [employer]. For more information about their products, see www.Group Therapy Records. 7343-4126 The [employer]. [address] [place] [address]. All rights reserved. This information is not [...] thin towel or cloth. You may use xjpe-jqc-gecxype pain medicine (NSAIDS or nonsteroidal anti- inflammatory [...] or is irritated You re-injure your ankle 0256-3866 The [employer]. [address] [place] [address]. All rights reserved. This information is not intended as a substitute for professional medical care. Always follow yourhealthcare professional's instructions. Additional Information VACCINATE! IT SAVES LIVES! Members of the community who have not yet received the COVID-19 vaccine and would like to receive it can visit one of [facility] vaccine clinics. There are many vaccine clinic locations within the [facility]. For locations and available times, please visit www.gettheshot.coronavirus.[place].gov/. It is important to note that some COVID mobile vaccine clinics are held outdoors and may be canceled in rainy or stormy conditions. To learn more about pediatric vaccinations (ages 5-11), we invite you to visit the [facility] webpage. https://www.[facility].org/pages/1681-Gxneo-Btbfawgnetg-Renxhckbej-Xsmpq-Rpz stions.htmlTo learn more about the COVID-19 vaccine, we invite you to visit the CDC website for a list of frequently asked questions. https://www.cdc.gov/coronavirus/2019-ncov/vaccines/faq.html [facility] Patient Portal Access Instructions: Stay connected with your healthcare team and access your personal medical information anytime with the [facility] Patient Portal. If you would like a full copy of your medical records please contact the [facility] Medical Records Department Friday through Friday between 8a.m. and 4:30p.m. Please follow the directions below to access the portal: 1.Access the email account you provided upon [facility].2.Look for an invitation email from [facility].3.Open the email and access the invitation link: Accept Invitation to [facility]4.Fill in the required rioc to create your account. Sign into www.[employer]Par Sciences with your username and password that you [...] you will allow to register on the [facility] Patient Portal for access to your information. You can also access the [facility] Patient Portal on the [employer]datong.com. Simply click on Health Records under [employer] and then click on the QM Power logo. HOW TO SAFELY DISPOSE OF PRESCRIPTION [...] Call your local pharmacy or go to http://bit.[employer]/6Y8Ch8v to find one close to you.3.Make use of household items: Use cat litter or old coffee grounds to dispose medications if other options arenot available. Mix your drugs with these household products, seal them in an airtight container andthrow it into the garbage. Call [facility]: [phone] to be sure your drugs can be [...] aware that I should contact my doctor. Patient/Paper Coater Signature: Date/Time: Relationship to Patient: Witness Name/Signature: Date/Time: [facility]07-08-2025 Note* Exam Date Time Procedure Performing Provider Status 03/15/25 1:58 PM XR Foot Minimum 3 Views Right MITCHELL SANCHEZ MD; Auth (Verified) [id number] ORIGINAL EXAMINATION: THREE XRAY VIEWS OF THE [...] 03/15/2025 3:52:39 PM Ordering Provider: ABI LOPEZ [facility]07-08-2025 Note* Exam Date Time Procedure Performing Provider Status 03/15/25 1:57 PM XR Hand Minimum 3 Views Left MONTY SANCHEZ MD; Auth (Verified) [id number] ORIGINAL EXAMINATION: THREE XRAY VIEWS OF THE [...] 03/15/2025 2:19:56 PM Ordering Provider: ABI LOPEZ [facility]05-11-2025 Hospital Discharge instructions Patient Education 01/16/2025 [...] swelling in the outer vaginal area (labia) 7001-4368 The [employer]. [address] [place] [address]. All rights reserved. This information is not [...] the first few days. You may use fbex-hfz-ybplbri medicine, such as acetaminophen or ibuprofen, to [...] F (38 C) or as advised Seizure 4078-9913 The [employer]. [address] [place] [address]. All rights reserved. This information is not intended as a substitute for professional medical care. Always follow yourhealthcare professional's instructions. Follow Up Care 01/15/2025 22:49:59 With:CLIF FLANNERY MD Address: [address] [place] [phone]- When:2-4 days [facility] 05-11-2025 Note Discharge Instructions Thank you for allowing [facility] to assist you with your healthcare needs. The following is importantdischarge information regarding your hospital visit. Diagnosis from Today's Visit Otitis media UTI (urinary tract infection) What to Do Next Instructions from Your Care Team No qualifying data available. Post Acute Orders No qualifying data available. You Need to Schedule the Following Appointments Follow Up with CLIF FLANNERY MD When:Within 2-4 days Where:[address] [place] [phone]- Allergies NKA Medications Please ask your [...] in the outer vaginal area (labia) The [employer]. [address] [place] [address]. All rights reserved. This information is not [...] the first few days. You may use jvrl-ukg-qjbzaxt medicine, such as acetaminophen or ibuprofen, to [...] F (38 C) or as advised Seizure 2800-8126 The [employer]. [address] [place] [address]. All rights reserved. This information is not intended as a substitute for professional medical care. Always follow yourhealthcare professional's instructions. Additional Information VACCINATE! IT SAVES LIVES! Members of the community who have not yet received the COVID-19 vaccine and would like to receive it can visit one of [facility] vaccine clinics. There are many vaccine clinic locations within the [facility]. For locations and available times, please visit www.gettheshot.coronavirus.[place].gov/. It is important to note that some COVID mobile vaccine clinics are held outdoors and may be canceled in rainy or stormy conditions. To learn more about pediatric vaccinations (ages 5-11), we invite you to visit the [facility] webpage. https://www.innRoads.org/pages/8512-Urwuh-Fzjwylnwvcr-Rzvcezgdgw-Yvmcv-Zns stions.htmlTo learn more about the COVID-19 vaccine, we invite you to visit the CDC website for a list of frequently asked questions. https://www.cdc.gov/coronavirus/2019-ncov/vaccines/faq.html [facility] Patient Portal Access Instructions: Stay connected with your healthcare team and access your personal medical information anytime with the [facility] Patient Portal. If you would like a full copy of your medical records please contact the [facility] Medical Records Department Friday through Friday between 8a.m. and 4:30p.m. Please follow the directions below to access the portal: 1.Access the email account you provided upon [facility].2.Look for an invitation email from [facility].3.Open the email and access the invitation link: Accept Invitation to [facility]4.Fill in the required rico to create your account. Sign into www.[employer] with your username and password that you [...] you will allow to register on the [facility] Patient Portal for access to your information. You can also access the [facility] Patient Portal on the [employer]datong.com. Simply click on Health Records under [employer] and then click on the QM Power logo. HOW TO SAFELY DISPOSE OF PRESCRIPTION [...] Call your local pharmacy or go to http://Ticket ABC.[employer]/[email or web address] to find one close to you.3.Make use of household items: Use cat litter or old coffee grounds to dispose medications if other options arenot available. Mix your drugs with these household products, seal them in an airtight container andthrow it into the garbage. Call [facility]: [phone] to be sure your drugs can be [...] aware that I should contact my doctor. Patient/Paper Coater Signature: Date/Time: Relationship to Patient: Witness Name/Signature: Date/Time: [facility]05-10-2025 Note* Exam Date Time Procedure Performing Provider Status 01/15/25 11:42 PM XR Chest 1 View ARABELLA HAAS DO; [facility] (Verified[facility] [id number] ORIGINAL EXAMINATION: ONE XRAY VIEW OF THE [...] 01/15/2025 11:52:44 PM Ordering Provider: THERON STOKES [facility]05-10-2025 Note* Exam Date Time Procedure Performing Provider Status 01/15/25 10:57 PM EKG [ED AOH] - CV THERON STOKES MD; Auth (Verified) ECG Final Report Sinus tachycardia Borderline right axis deviation Borderline T abnormalities, inferior leads Electronic Signature: THERON STOKES MD 01/15/2025 23:27:07 [facility]02-20-2025 NoteDischarge Instructions Discharge Summary [address] [address] [phone] 10/27/2024 Patient: KARLIE GOVEA Sex: Female : 1975 Age: 49y Thank you for visiting [facility]. You have been evaluated today by Waylon Maddox M.D. for the following condition(s): Principal Diagnosis Dysuria. Probable acute cystitis. No hematuria present. INSTRUCTIONS Prescription Medications: cephalexin 500 mg capsule: Take 1 capsule by mouth four times a day for 7 days, dispense 28 capsule. Refills 0. Pharmacy: [facility] - [address] [place] [address]. Follow-up: Follow up with your healthcare provider in one week. You have been given the following additional information: Bladder Infection, Female (Adult) Patient Signature 1 of 6 Discharge Instructions Facility Paper Coater Date/Time General Instructions with ExitWriter [address] [address] [phone] 10/27/2024 Patient: KARLIE GOVEA Sex: Female : 1975 Age: 49y Thank you for visiting [facility]. You have been evaluated today by Waylon Maddox M.D. for the following condition(s): Principal Diagnosis Dysuria. Probable acute cystitis. No hematuria present. INSTRUCTIONS Prescription Medications: cephalexin 500 mg capsule: Take 1 capsule by mouth four times a day for 7 days, dispense 28 capsule. Refills 0. Pharmacy: [facility] - [address] [place] [address]. Follow-up: Follow up with your healthcare provider [...] (gastrointestinal) bleeding, or a (more content not included)...[facility]12-20-2024 Hospital Discharge instructions Patient Education 08/27/2024 [...] keep having episodes of high blood sugar. 5632-2893 The [employer]. [address] [place] [address]. All rights reserved. This information is not intended as a substitute for professional medical care. Always follow yourhealthcare professional's instructions. Follow Up Care 08/27/2024 16:00:33 With:CLIF FLANNERY MD Address: [address] [place] [address]- When:2-4 days [facility] 12-20-2024 Note Discharge Instructions Thank you for allowing [facility] to assist you with your healthcare needs. The following is importantdischarge information regarding your hospital visit. Diagnosis from Today's Visit Hyperglycemia What to Do Next Instructions from Your Care Team No qualifying data available. Post Acute Orders No qualifying data available. You Need to Schedule the Following Appointments Follow Up with CLIF FLANNERY MD When:Within 2-4 days Where:[address] [place] [address] [phone]- Allergies NKA Medications Please ask your primary doctor or pharmacist before taking any other medication not listed, including over the counter drugs, herbal medications, vitamins and or supplements as they may interact withyour home medications. What How Much When Why Instructions Last Dose Unchanged acetaminophen- hydrocodone (Ina 325- 5 mg oral tablet) 1 tab(s) [...] keep having episodes of high blood sugar. 5976-1232 The [employer]. [address] [place] [address]. All rights reserved. This information is not intended as a substitute for professional medical care. Always follow yourhealthcare professional's instructions. Additional Information VACCINATE! IT SAVES LIVES! Members of the community who have not yet received the COVID-19 vaccine and would like to receive it can visit one of [facility] vaccine clinics. There are many vaccine clinic locations within the [facility]. For locations and available times, please visit www.gettheshot.coronavirus.[place].gov/. It is important to note that some COVID mobile vaccine clinics are held outdoors and may be canceled in rainy or stormy conditions. To learn more about pediatric vaccinations (ages 5-11), we invite you to visit the [facility] webpage. https://www.[facility].org/pages/5785-Tggqt-Zpqcqigbarf-Iggtriseco-Cortr-Krm stions.htmlTo learn more about the COVID-19 vaccine, we invite you to visit the CDC website for a list of frequently asked questions. https://www.cdc.gov/coronavirus/2019-ncov/vaccines/faq.html [facility] Patient Portal Access Instructions: Stay connected with your healthcare team and access your personal medical information anytime with the [facility]. If you would like a full copy of your medical records please contact the [facility] Medical Records Department Friday through Friday between 8a.m. and 4:30p.m. Please follow the directions below to access the portal: 1.Access the email account you provided upon [facility].2.Look for an invitation email from [facility].3.Open the email and access the invitation link: Accept Invitation to [facility]4.Fill in the required rico to create your account. Sign into www.[email or web address]NT with your username and password that you [...] you will allow to register on the [facility] Patient Portal for access to your information. You can also access the [facility] Patient Portal on the [employer] eder. Simply click on Health Records under [employer] and then click on the Navi logo. [...] Call your local pharmacy or go to http://bit.[employer]/9W7Fo9g to find one close to you.3.Make use of household items: Use cat litter or old coffee grounds to dispose medications if other options arenot available. Mix your drugs with these household products, seal them in an airtight container andthrow it into the garbage. Call [facility]: [phone] to be sure your drugs can be [...] aware that I should contact my doctor. Patient/Paper Coater Signature: Date/Time: Relationship to Patient: Witness Name/Signature: Date/Time: [facility]09-21-2024 NoteHNO ID: [id number] Author: NAOMI LOPEZ, Marcelo Service: ? Author Type: [employer] Cutter Type: Progress Notes Filed: 05/29/2024 15:36 Note [...] PATIENT PRESENTS WITH AN IMPLANTABLE OR ATTACHED MICROGRINDER OPERATOR: No RADIOLOGY DEPARTMENT: CT; Exam(s) Completed: Brain PERIPHERAL IV DATA: Not applicable SIGNED BY: RT Moe (R)(CT) May 29, 2024 3:36 [id number] NoteHNO ID: [id number] Author: CARMENZA CAMACHO RT(R) Service: Radiology Author [...] PATIENT PRESENTS WITH AN IMPLANTABLE OR ATTACHED MICROGRINDER OPERATOR: No RADIOLOGY DEPARTMENT: General X-ray: Exam(s) Completed: Chest X-Ray PERIPHERAL IV DATA: Not applicable SIGNED BY: RT Pilar(R) May 29, 2024 2:06 [facility] [id number] NoteHNO ID: [id number] Author: HIGINIO CHUNG RT(R) Service: ? Author [...] PATIENT PRESENTS WITH AN IMPLANTABLE OR ATTACHED MICROGRINDER OPERATOR: No ALLERGIES: Reviewed and unchanged CONTRAST ALLERGY: [...] [place] DATE: May 27, 2024 TIME: 7:59 PMSt[facility] CenterNrfhiumd00-49-9250 NoteHNO ID: [id number] Author: RUI CHAVEZ RT(R) Service: Radiology Author Type: [employer] Cutter Type: Progress Notes Filed: 05/27/2024 16:34 Note [...] PATIENT PRESENTS WITH AN IMPLANTABLE OR ATTACHED MICROGRINDER OPERATOR: No RADIOLOGY DEPARTMENT: General X-ray: Exam(s) Completed: Chest X-Ray PERIPHERAL IV DATA: Not applicable SIGNED BY: RT Elizabeth(R) May 27, 2024 4:33 PMSt[id number] Hospital Discharge instructions Patient Education 08/28/2023 19:22:42 [...] shoulder or upper arm Fever or chills 3051-9971 [employer]. [address] [place] [address]. All rights reserved. This information is not intended as a substitute for professional medical care. Always follow yourhealthcare professional's instructions. Follow Up Care 08/28/2023 17:45:47 With:CLIF FLANNERY MD Address: [address] [place] [address]- When:2-4 days [facility] 12-21-2023 Note Discharge Instructions Thank you for allowing [facility] to assist you with your healthcare needs. [...] MD When Within 2-4 days Where: [address] [facility] [facility] [place] [id number]- Allergies NKA Medications Please ask your primary [...] needed for pain Printed Prescription Unchanged acetaminophen-hydrocodone (Ina 325- 5 mg oral tablet) 1 tab(s) [...] shoulder or upper arm Fever or chills 0142-0343 [employer]. [address] [place] [address], [place] [address]. All rights reserved. This information is not intended as a substitute for professional medical care. Always follow yourhealthcare professional's instructions. Additional Information VACCINATE! IT SAVES LIVES! Members of the community who have not yet received the COVID-19 vaccine and would like to receive it can visit one of [facility] vaccine clinics. There are many vaccine clinic locations within the [facility]. For locations and available times, please visit www.gettheshot.coronavirus.[place].gov/. It is important to note that some COVID mobile vaccine clinics are held outdoors and may be canceled in rainy or stormy conditions. To learn more about pediatric vaccinations (ages 5-11), we invite you to visit the [facility] webpage. https://www.[facility].org/pages/4836-Emecy-Vrqdelocset-Toxfxspsdl-Wtbqb-Ile stions.htmlTo learn more about the COVID-19 vaccine, we invite you to visit the CDC website for a list of frequently asked questions. https://www.cdc.gov/coronavirus/2019-ncov/vaccines/faq.html [facility] Patient Portal Access Instructions: Stay connected with your healthcare team and access your personal medical information anytime with the [facility] Patient Portal. If you would like a full copy of your medical records please contact the [facility] Medical Records Department Friday through Friday between 8a.m. and 4:30p.m. Please follow the directions below to access the portal: 1.Access the email account you provided upon [facility] to [facility].2.Look for an invitation email from [facility].3.Open the email and access the invitation link: [facility] to [facility]4.Fill in the required rico to create your account. Sign into www.[employer] with your username and password that you [...] you will allow to register on the [facility] Patient Portal for access to your information. You can also access the [facility] Patient Portal on the [employer] eder. Simply click on Health Records under [employer] and then click on the Navi logo. [...] Call your local pharmacy or go to http://bit.[employer]/5R8Xj6p to find one close to you.3.Make use of household items: Use cat litter or old coffee grounds to dispose medications if other options arenot available. Mix your drugs with these household products, seal them in an airtight container andthrow it into the garbage. Call [facility]: [phone] to be sure your drugs can be [...] aware that I should contact my doctor. Patient/Paper Coater Signature: Date/Time: Relationship to Patient: Witness Name/Signature: Date/Time: [facility]12-21-2023 Note ORIGINAL EXAMINATION: TWO XRAY VIEWS OF THE RIGHT YFZEZCCO76/21/2023 7:09 pm COMPARISON: None HISTORY: ORDERING SYSTEM [...] Sign Date: 08/28/2023 7:50:55 PM Ordering Provider: [facility]07-14-2023 Hospital Discharge instructions Patient Education 03/21/2023 18:20:06 [...] to move wrist, hand or fingers properly. 8870-8799 [employer]. [address] [place] [address]. All rights reserved. This information is not intended as a substitute for professional medical care. Always follow yourhealthcare professional's instructions. Follow Up Care 03/21/2023 17:21:07 With:CLIF FLANNERY MD Address: [address] [place] [address]- When:3-5 days [facility] 07-14-2023 Emergency department Discharge summary Discharge Instructions Thank you for allowing [facility] to assist you with your healthcare needs. [...] MD When Within 3-5 days Where: [address] [place] [address]- Allergies NKA Medications Please ask your primary doctor or pharmacist before taking any other medication not listed, including over the counter drugs, herbal medications, vitamins and or supplements as they may interact withyour home medications. What How Much When Why Instructions Last Dose New acetaminophen-hydrocodone (Ina 325- 5 mg oral tablet) 1 tab(s) [...] to move wrist, hand or fingers properly. 6247-5424 [employer]. [address] [place] [address]. All rights reserved. This information is not intended as a substitute for professional medical care. Always follow yourhealthcare professional's instructions. Additional Information VACCINATE! IT SAVES LIVES! Members of the community who have not yet received the COVID-19 vaccine and would like to receive it can visit one of [facility] vaccine clinics. There are many vaccine clinic locations within the [facility]. For locations and available times, please visit www.gettheshot.coronavirus.[place].gov/. It is important to note that some COVID mobile vaccine clinics are held outdoors and may be canceled in rainy or stormy conditions. To learn more about pediatric vaccinations (ages 5-11), we invite you to visit the [facility] webpage. https://www.[facility].org/pages/9111-Fvkxk-Pwoewlntcll-Riepyzmibk-Vahbz-Ngb stions.htmlTo learn more about the COVID-19 vaccine, we invite you to visit the CDC website for a list of frequently asked questions. https://www.cdc.gov/coronavirus/2019-ncov/vaccines/faq.html [facility] Patient Portal Access Instructions: Stay connected with your healthcare team and access your personal medical information anytime with the [facility] Patient Portal. If you would like a full copy of your medical records please contact the [facility] Medical Records Department Friday through Friday between 8a.m. and 4:30p.m. Please follow the directions below to access the portal: 1.Access the email account you provided upon registration to the [facility].2.Look for an invitation email from [facility].3.Open the email and access the invitation link: Accept Invitation to [facility]4.Fill in the required rico to create your account. Sign into www.[employer] with your username and password that you [...] you will allow to register on the [facility] Patient Portal for access to your information. You can also access the [facility] Patient Portal on the [email or web address]. Simply click on Health Records under HealthData and then click on the [employer] logo. HOW TO SAFELY DISPOSE OF PRESCRIPTION [...] Call your local pharmacy or go to http://bit.[employer]/6N0Xf7e to find one close to you.3.Make use of household items: Use cat litter or old coffee grounds to dispose medications if other options arenot available. Mix your drugs with these household products, seal them in an airtight container andthrow it into the garbage. Call [facility]: [phone] to be sure your drugs can be [...] aware that I should contact my doctor. Patient/Paper Coater Signature: Date/Time: Relationship to Patient: Witness Name/Signature: Date/Time: [place] [address]-14-2023 Note ORIGINAL EXAMINATION: THREE XRAY VIEWS OF [...] Sign Date: 03/21/2023 6:06:06 PM Ordering Provider: [address]14-2023 Note ORIGINAL EXAMINATION: THREE XRAY VIEWS [...] Sign Date: 03/21/2023 6:05:27 PM Ordering Provider: [address]14-2023 Note ORIGINAL EXAMINATION: THREE XRAY VIEWS [...] Sign Date: 03/21/2023 6:05:27 PM Ordering Provider: [facility]07-14-2023 Note ORIGINAL EXAMINATION: THREE XRAY VIEWS OF [...] Sign Date: 03/21/2023 6:06:06 PM [facility] No data available for this section [facility] Evaluation + Plan note Future Appointments Appointment Date:03/08/2025 03:00:00 PM Scheduled Provider:LIBBY SUAZO DO Location:[facility] Appointment Type:PC OV Diagnostic Tests Pending * Lipoprotein (a) 03/04/25 * Vitamin B12 Level 03/04/25 * Apolipoprotein B 03/04/25 Future Scheduled Tests Laboratory* Albumin/Creatinine Ratio, Random Urine 02/11/25 [facility] Evaluation + Plan note Future Appointments Appointment Date:04/12/2025 03:00:00 PM Scheduled Provider:LIBBY SUAZO DO Location:[facility] Appointment Type: OV Future Scheduled Tests Laboratory* Vitamin B12 Level 03/08/25 * A1C Hemoglobin 03/08/25 * Albumin/Creatinine Ratio, Random Urine 02/11/25 * Complete Metabolic Panel 03/08/25 [facility] Evaluation + Plan note Future Appointments Appointment Date:04/29/2025 02:45:00 PM Scheduled Provider:LIBBY SUAZO DO Location:[facility] Appointment Type:PC OV Future Scheduled Tests Laboratory* Vitamin B12 Level 03/08/25 * A1C Hemoglobin 03/08/25 * Albumin/Creatinine Ratio, Random Urine 02/11/25 * Complete Metabolic Panel 03/08/25 Radiology* MRI Foot w/o Contrast Right 04/11/25 [facility] Evaluation + Plan note Future Appointments Appointment Date:05/06/2025 02:45:00 PM Scheduled Provider:LIBBY SUAZO DO Location:[facility] Appointment Type: OV Future Scheduled Tests Laboratory* Vitamin B12 Level 03/08/25 * A1C Hemoglobin 03/08/25 * Albumin/Creatinine Ratio, Random Urine 02/11/25 * Complete Metabolic Panel 03/08/25 Radiology* MRI Foot w/o Contrast Right 04/11/25 [facility] Evaluation + Plan note Future Appointments Appointment Date:08/12/2025 08:30:00 AM Scheduled Provider:MANUEL NORMAN MD Location:[facility] Appointment Type: GROUP WORK PROGRAM AIDE Future Scheduled Tests Laboratory* Vitamin B12 Level 03/08/25 * A1C Hemoglobin 03/08/25 * Albumin/Creatinine Ratio, Random Urine 02/11/25 * Complete Metabolic Panel 03/08/25 Radiology* MRI Foot w/o Contrast Right 04/11/25 [facility] Hospital Discharge instructions No data available for this section [facility] Progress note No data available for this section [facility] Summary Purpose Family History No Family [...] section and content) DATE CREATED AUTHOR 02/25/2018 [facility] DATE CREATED AUTHOR AUTHOR'S ORGANIZ ATION 09/23/2019 [facility] DATE CREATED AUTHOR AUTHOR'S ORGANIZ ATION 03/15/2021 [facility] DATE CREATED AUTHOR AUTHOR'S ORGANIZ ATION 10/18/2021 [facility] DATE CREATED AUTHOR AUTHOR'S ORGANIZ ATION 09/06/2023 [facility] ([place]) DATE CREATED AUTHOR AUTHOR'S ORGANIZ ATION 02/08/2024 [facility] DATE CREATED AUTHOR AUTHOR'S ORGANIZ ATION 06/02/2024 [facility] DATE CREATED AUTHOR AUTHOR'S ORGANIZ ATION 05/05/2025 [facility] DATE CREATED AUTHOR AUTHOR'S ORGANIZ ATION 05/30/2025 [facility] DATE CREATED AUTHOR AUTHOR'S ORGANIZ ATION 07/21/2025 [facility] Patient Care team informatio n (unrecognized section and content) Care Team Personnel Name: CLIF FLANNERY MD Member Role: Primary Care Physician Address: Address: [address] [place] [address]- Name: CAR BONILLA MD Position: ED Physician Member Role: ED Physician Address: Address: [address] [place] [address] [place] Name: Yelena Horan RN Position: ED RN Member Role: ED RN Care Team Related Persons Name: NONE, Care Team Personnel Name: CLIF FLANNERY MD Member Role: Primary Care Physician Address: Address: [address] [place] [id number]- Name: ABI LOPEZ MD Position: ED Physician Member Role: Attending Physician Address: Address: [address] [place] [id number] Name: ROSA Ritter Position: RN Member Role: ED RN Name: Anne Liriano RN Position: AO RN Member Role: ED RN Care Team Related Persons Name: NONE, Care Team Personnel Name: CLIF FLANNERY MD Member Role: Primary Care Physician Address: [address] Telecom: Care Team Related Persons Name: NONE, Care Team Personnel Name: CLIF FLANNERY MD Member Role: Primary Care Physician Address: [address] [place] Telecom: Care Team Related Persons Name: TAMY GOVEA Care Team Personnel Name: LIBBY SUAZO DO Position: P4 Physician - Primary Care Member Role: Primary Care Physician Address: [address] [place] [address] Telecom: Care Team Related Persons Name: TAMY GOVEA Care Team Personnel Name: LIBBY SUAZO DO Position: P4 Physician - Primary Care Member Role: Primary Care Physician Address: [address] [place] [address] Telecom: Care Team Related Persons Name: TAMY GOVEA Care Team Personnel Name: LIBBY SUAZO DO Position: P4 Physician - Primary Care Member Role: Primary Care Physician Address: [address] Telecom: Care Team Related Persons Name: TAMY GOVEA Care Team Personnel Name: LIBBY SUAZO DO Position: P4 Physician - Primary Care Member Role: Primary Care Physician Address: [address] Telecom: Care Team Related Persons Name: TAMY GOVEA Care Team Personnel Name: LIBBY SUAZO DO Position: P4 Physician - Primary Care Member Role: Primary Care Physician Address: [address] [place] [address] Telecom: Care Team Related Persons Name: TRENT [...] BE BASED ON THE PRIMARY CLINICAL RECORDS. [facility], [facility]. provides no warranty or guarantee of the accuracy or completeness of information in this document.
[2025-09-03 09:00] VITALS: BP 134/78; PULSE 97; RESP 18; TEMP 37.1; O2SAT 99
== END 2025-09-03 09:05 | disposition home or self-care (01) ==
LOC: ED 08:46
PROVIDERS: Emergency Provider Emergency Medicine; Visit Provider Emergency Medicine
DX: M25.531 Pain in right wrist (principal); E11.22 Type 2 diabetes mellitus with diabetic chronic kidney disease; F17.210 Nicotine dependence, cigarettes, uncomplicated; N18.2 Chronic kidney disease, stage 2 (mild); W01.0XXA Fall on same level from slipping, tripping and stumbling without subsequent striking against object, initial encounter
CPT/HCPCS: 73110; 99283